=== PATIENT | male | born 1960 | race Caucasian/White ===

== ENCOUNTER 2022-08-05 15:12 | Emergency (ER) | payer MEDICAID, SELFPAY ==
[2022-08-05 15:13] VITALS: BP 128/77; PULSE 90; RESP 18; TEMP 36.6; O2SAT 99
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
[2022-08-05] MEDS: Paroxetine 20 MG Tablet 30 MG PO (16:32)
--- NOTE | 2022-08-05 16:34 | ED.RN ---
per dr. cota pt does NOT need a sitter at this time.
--- NOTE | 2022-08-05 16:38 | ED.RN ---
called meal tray for pt
[2022-08-05 16:41] VITALS: BP 119/76; PULSE 83; RESP 14; O2SAT 97
[2022-08-05 17:05] VITALS: BP 127/83; PULSE 79; RESP 16; O2SAT 98
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
--- NOTE | 2022-08-05 20:33 | CM.ED ---
Social Work SW spoke to [facility] worker, Seema Mancuso, who reports they can cover transportation costs for patient to return home when discharged. She reports they have a contract with [facility] and they can bill them if they are willing to transport him back to [place]. Transportation scheduled with [facility] with an ETA of 6:30. Bharti Haynes BRANCH LIBRARY CLERK, ADJUNCT SPANISH INSTRUCTOR
== END 2022-08-05 17:19 | disposition home or self-care (01) ==
PROVIDERS: Emergency Provider Emergency Medicine; PCP Nurse Practitioner Primary Care; Visit Provider Emergency Medicine
DX: R45.851 Suicidal ideations (principal); F22 Delusional disorders; F41.9 Anxiety disorder, unspecified; F32.A Depression, unspecified; Z79.899 Other long term (current) drug therapy; Z91.148 Patient's other noncompliance with medication regimen for other reason
CPT/HCPCS: 99283

== ENCOUNTER 2024-02-01 15:37 | Inpatient (IN) | payer MEDICARE, MEDICAID, SELFPAY ==
[2024-02-01 15:38] VITALS: BP 92/65; PULSE 64; RESP 14; TEMP 36.6; O2SAT 100; BMI 18.9
--- NOTE | 2024-02-01 15:48 | EKG12_ITS ---
Test Reason : SYNC Blood Pressure : */* mmHG Vent. Rate : 67 BPM Atrial Rate : 67 BPM P-R Int : 142 ms QRS Dur : 84 ms QT Int : 418 ms P-R-T Axes : 76 86 83 degrees QTcB Int : 441 ms Normal sinus rhythm Nonspecific T wave abnormality Abnormal ECG Confirmed by Landen Adorno ([id number]), editorial intern ARABELLA MITCHELL ([id number]) on 02/02/2024 1:41:32 PM Referred By: Rambo Mora Confirmed By: Landen Adorno
--- NOTE | 2024-02-01 15:49 | RAD_ITS ---
INDICATION: chest pain EXAMINATION/TECHNIQUE: X-RAY - XR Chest 2 Views COMPARISON: FINDINGS: LINES/DEVICES: None. LUNGS: Hyperaeration. No consolidation, edema or effusion. No pneumothorax. MEDIASTINUM AND CARDIOVASCULAR STRUCTURES: Cardiac silhouette not enlarged. Central airways and mediastinal contour are unremarkable. BONES AND SOFT TISSUES: Unremarkable. RAD/Chest PA and Lateral IMPRESSION: Hyperaeration. Electronically Signed: Levi Jenkins DO at 17:36 EST ,
--- NOTE | 2024-02-01 15:49 | CT_ITS ---
STUDY: CT CERVICAL SPINE WITHOUT CONTRAST REASON FOR EXAM: Male, 63 years old. head injury RADIATION DOSAGE (If Supplied By Facility): CTDIvol = ( 19.05 ) mGy, DLP = ( 424.71 ) mGycm TECHNIQUE: High resolution transaxial imaging was performed without contrast material. Sagittal and coronal images were reconstructed. Individualized dose optimization techniques were used for this CT. COMPARISON: None FINDINGS: Normal craniovertebral junction. Normal anterior atlantoaxial articulation. Normal odontoid process. Normal cervical lordosis. Normal vertebral bodies and posterior osseous elements. C2-3: Normal endplates. Normal disc height and morphology. Normal central canal and intervertebral neuroforamina. C3-4: Normal endplates. Normal disc height and morphology. Normal central canal. Facet hypertrophy and uncovertebral spurring and a intervertebral neuroforamina, left more than right. C4-5: Degenerative spurring at the endplates. Normal disc height and morphology. Normal central canal. Facet hypertrophy and uncovertebral spurring and a intervertebral neuroforamina. C5-6: Degenerative spurring at the endplates. Normal disc height and morphology. Normal central canal and intervertebral neuroforamina. C6-7: Degenerative spurring at the endplates. Normal disc height and morphology. Normal central canal and intervertebral neuroforamina. C7-T1: Degenerative spurring at the endplates. Narrowed disc height. Normal central canal. Facet hypertrophy and uncovertebral spurring and a intervertebral neuroforamina. Normal visualized soft tissue structures. CT/Spine Cervical without Contras IMPRESSION: Degenerative changes of the cervical spine. Electronically Signed: Levi Jenkins DO at 16:50 EST Reading Location ID and State: [facility] / [place] Tel [phone], Service support ,
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
--- NOTE | 2024-02-01 15:54 | EX.ED.DYSGE1 ---
HPI <PAXTON Sheridan - Last Filed: 02/01/24 18:33> History of Present Illness Chief Complaint: Syncope Narrative Narrative: Patient presenting today due to 2 syncopal episodes that occurred today. 1 occurred this morning and 1 occurred shortly prior to arrival. He reports that before both episodes he had been laying down for a long period of time in bed, he then got up and passed out with ambulating. He denies any symptoms prior to passing out such as lightheadedness, chest pain, or shortness of breath. The second episode and syncope resulted in him hitting his head and sustaining a laceration above his right eyebrow. His tetanus is not up-to-date. He denies any cardiac history or history of blood clots/recent surgery/travel/immobilization. He does admit that he has not been eating or drinking as much as he normally does. He has a PMH of depression, anxiety, GERD, and anemia. He denies recent illness, fevers, chills, abdominal pain, nausea, vomiting. PFSH <PAXTON Sheridan - Last Filed: 02/01/24 18:33> PFSH Medical History Acute insomnia GERD (gastroesophageal reflux disease) Anxiety Depression Home Medications ?Medication ?Instructions ?Recorded ?Last Taken ?Type clorazepate dipotassium 3.75 mg 3.75 mg PO BID PRN anxiety 5 days 08/05/22 Unknown Rx tablet #10 tabs paroxetine HCl 30 mg tablet (Paxil) 30 mg PO DAILY pt states does not 08/05/22 Unknown Rx take #14 tabs acetaminophen 500 mg tablet 500 mg PO Q4H PRN pain 02/01/24 Unknown History (Tylenol Extra Strength) aripiprazole 5 mg tablet 5 mg PO DAILY 02/01/24 Unknown History bupropion HCl 150 mg 24 hr tablet, 150 mg PO DAILY 02/01/24 Unknown History extended release ibuprofen 200 mg tablet (Advil) 400 mg PO Q6H PRN pain 02/01/24 Unknown History meloxicam 7.5 mg tablet 7.5 mg PO DAILY PRN pain 02/01/24 Unknown History pantoprazole 40 mg tablet,delayed 40 mg PO DAILY 02/01/24 Unknown History release trazodone 100 mg tablet 100 mg PO QHS 02/01/24 Unknown History Allergy/AdvReac Type Severity Reaction Status Date / Time No Known Allergies Allergy Verified 02/01/24 15:41 Social History housing: apartment current occupational status: unemployed Smoking Status: Unknown if ever smoked ROS <PAXTON Sheridan - Last Filed: 02/01/24 18:33> ROS ED Constitutional Constitutional ED: Denies chills or fever(s) Cardiovascular Cardiovascular: Denies chest pain Respiratory/Chest Respiratory/Chest: Denies cough or dyspnea Gastrointestinal Gastrointestinal: Denies abdominal pain, nausea or vomiting Musculoskeletal Musculoskeletal: Denies arthralgias, myalgias or neck pain Integumentary Reports laceration Neurologic Neurologic: Denies dizziness or weakness EXAM <PAXTON Sheridan - Last Filed: 02/01/24 18:33> Physical Exam Const Vital Signs: 02/01/24 15:38 02/01/24 16:08 02/01/24 16:09 Temperature 98 F Temperature Source Oral Pulse Rate 64 Pulse Rate [Lying] Pulse Rate [Sitting (for 1 minute prior to obtaining)] Pulse Rate [Standing (for 1 minute prior to obtaining)] Respiratory Rate 14 Respiratory Effort Normal Normal Respiratory Depth Normal Respiratory Pattern Normal Normal Blood Pressure 92/65 Blood Pressure [Lying] Blood Pressure [Sitting (for 1 minute prior to obtaining)] Blood Pressure [Standing (for 1 minute prior to obtaining)] Blood Pressure Mean 74 Blood Pressure Mean [Lying] Blood Pressure Mean [Sitting (for 1 minute prior to obtaining)] Blood Pressure Mean [Standing (for 1 minute prior to obtaining)] Pulse Ox 100 Oxygen Delivery Method Room Air 02/01/24 17:32 02/01/24 17:37 02/01/24 18:11 Temperature 98.5 F Temperature Source Pulse Rate 69 66 Pulse Rate [Lying] 67 Pulse Rate [Sitting (for 1 minute prior to obtaining)] 70 Pulse Rate [Standing (for 1 minute prior to obtaining)] 79 Respiratory Rate 15 16 Respiratory Effort Respiratory Depth Respiratory Pattern Blood Pressure 92/62 110/70 Blood Pressure [Lying] 101/61 Blood Pressure [Sitting (for 1 minute prior to obtaining)] 109/65 Blood Pressure [Standing (for 1 minute prior to obtaining)] 92/62 Blood Pressure Mean 72 83 Blood Pressure Mean [Lying] 74 Blood Pressure Mean [Sitting (for 1 minute prior to obtaining)] 79 Blood Pressure Mean [Standing (for 1 minute prior to obtaining)] 72 Pulse Ox 99 100 Oxygen Delivery Method Room Air Positive well nourished, well developed and no apparent distress General Appearance ED: well developed HEENT Reports normocephalic, head/scalp atraumatic and dry mucous membranes HEENT Narrative: 3.5 cm full-thickness linear laceration above the right eyebrow. No inferior or superior orbital tenderness or step-offs on the right. Mouth ED: Yes dry mucous membranes Mouth: dry mucous membranes Eyes PERRL and EOMs intact bilaterally Neck full ROM and supple Chest Wall inspection of chest normal Resp normal respiratory effort and clear to auscultation bilaterally Cardio regular rate and regular rhythm GI soft to palpation, non-tender, non-distended and no masses Back/Spine normal ROM and normal to inspection Extremity normal to inspection and full ROM Neuro oriented x3, CN's II-XII intact bilaterally, moves all extremities, no focal motor deficits and no sensory deficits noted Sensorium / Orientation: awake and alert Psych mental status grossly normal and thought process normal Skin Skin Narrative: Laceration above right eyebrow otherwise no rashes or lesions noted. <Dr. Rambo Mora, DO - Last Filed: 02/01/24 23:41> Physical Exam Const Vital Signs: 02/01/24 15:38 02/01/24 16:08 02/01/24 16:09 Temperature 98 F Temperature Source Oral Pulse Rate 64 Pulse Rate [Lying] Pulse Rate [Sitting (for 1 minute prior to obtaining)] Pulse Rate [Standing (for 1 minute prior to obtaining)] Respiratory Rate 14 Respiratory Effort Normal Normal Respiratory Depth Normal Respiratory Pattern Normal Normal Blood Pressure 92/65 Blood Pressure [Lying] Blood Pressure [Sitting (for 1 minute prior to obtaining)] Blood Pressure [Standing (for 1 minute prior to obtaining)] Blood Pressure Mean 74 Blood Pressure Mean [Lying] Blood Pressure Mean [Sitting (for 1 minute prior to obtaining)] Blood Pressure Mean [Standing (for 1 minute prior to obtaining)] Pulse Ox 100 Oxygen Delivery Method Room Air 02/01/24 17:32 02/01/24 17:37 02/01/24 18:11 Temperature 98.5 F Temperature Source Pulse Rate 69 66 Pulse Rate [Lying] 67 Pulse Rate [Sitting (for 1 minute prior to obtaining)] 70 Pulse Rate [Standing (for 1 minute prior to obtaining)] 79 Respiratory Rate 15 16 Respiratory Effort Respiratory Depth Respiratory Pattern Blood Pressure 92/62 110/70 Blood Pressure [Lying] 101/61 Blood Pressure [Sitting (for 1 minute prior to obtaining)] 109/65 Blood Pressure [Standing (for 1 minute prior to obtaining)] 92/62 Blood Pressure Mean 72 83 Blood Pressure Mean [Lying] 74 Blood Pressure Mean [Sitting (for 1 minute prior to obtaining)] 79 Blood Pressure Mean [Standing (for 1 minute prior to obtaining)] 72 Pulse Ox 99 100 Oxygen Delivery Method Room Air [facility] <PAXTON Sheridan - Last Filed: 02/01/24 18:33> [facility] Narrative Medical decision making narrative: Patient presents today due to 2 syncopal episodes that occurred today. He did hit his head during the second episode and has a laceration above his right eyebrow that will require repair. His tetanus will be updated. He is hypotensive here at 92/65 and does admit that he has not been eating or drinking much recently but does not give a good reason as to why he has not been. He has a history of depression but has not been feeling more depressed than usual. He does appear dry and will be given IV fluids. Cardiac workup will be obtained. Head and neck CTs will be obtained to rule out intracranial bleed and cervical fracture. His head and neck CTs are negative for acute findings. Chest x-ray negative for cardiopulmonary abnormality. Laceration was repaired. Given his DAMARIS and 2 episodes of syncope I think he would benefit from admission to the hospital. He was given additional IV fluids. I will speak with the hospitalist and he will be admitted in stable condition. Lab Data Attestation: I reviewed the patient's lab results. Lab results narrative: BUN 22, creatinine 1.71, troponin 6 Labs: Laboratory Results - last 24 hr 02/01/24 02/01/24 15:39 17:45 WBC 5.9 RBC 4.36 L Hgb 14.7 Hct 43.0 MCV 98.6 H MCH 33.7 H MCHC 34.2 RDW Std Deviation 44.7 H RDW Coeff of Lola 12.2 Plt Count 209 MPV 11.7 Immature Gran % (Auto) 0.500 Neut % (Auto) 81.8 H Lymph % (Auto) 9.4 L [place] % (Auto) 6.9 Eos % (Auto) 0.7 Baso % (Auto) 0.7 Absolute Neuts (auto) 4.9 Absolute Lymphs (auto) 0.56 L Nucleated RBC % 0 Sodium 137 Potassium 4.0 Chloride 99 Carbon Dioxide 31.0 Anion Gap 7 BUN 22 H Creatinine 1.71 H Estim Creat Clear Calc 36.47 Est GFR (MDRD) Af Amer 52 L Est GFR (MDRD) Non-Af 43 L BUN/Creatinine Ratio 12.9 Glucose 165 H Calcium 9.3 Troponin I High Sens 6 15 Radiography X-Ray: Read by ED Physician Diagnostic Testing: Clinical Impression(s) from Imaging Studies Brain CT 02/01/24 15:49 IMPRESSION: No acute intracranial pathology of the brain. Electronically Signed: Levi Jenkins DO at 16:39 EST , Cervical Spine CT 02/01/24 15:49 IMPRESSION: Degenerative changes of the cervical spine. Electronically Signed: Levi Jenkins DO at 16:50 EST , Chest X-Ray 02/01/24 15:49 IMPRESSION: Hyperaeration. Electronically Signed: Levi Jenkins DO at 17:36 EST , EKG Initial EKG: Comments: 67 bpm, normal sinus rhythm, no ST elevation, T wave inversions in aVL and V1, interpreted by attending ED physician <Dr. Rambo Mora, DO - Last Filed: 02/01/24 23:41> [facility] Narrative Medical decision making narrative: Patient presents today due to 2 syncopal episodes that occurred today. He did hit his head during the second episode and has a laceration above his right eyebrow that will require repair. His tetanus will be updated. He is hypotensive here at 92/65 and does admit that he has not been eating or drinking much recently but does not give a good reason as to why he has not been. He has a history of depression but has not been feeling more depressed than usual. He does appear dry and will be given IV fluids. Cardiac workup will be obtained. Head and neck CTs will be obtained to rule out intracranial bleed and cervical fracture. His head and neck CTs are negative for acute findings. Chest x-ray negative for cardiopulmonary abnormality. Laceration was repaired. Given his DAMARIS and 2 episodes of syncope I think he would benefit from admission to the hospital. He was given additional IV fluids. I will speak with the hospitalist and he will be admitted in stable condition. Attending note: I have personally performed a face to face assessment of the patient and have reviewed the FREDY note. I personally made/approved the management plan and take responsibility for the patient management. I performed a substantive portion of the visit including all aspects of the following. My wade findings include: Syncope x 2 while walking with no prodromal symptoms. Head injury laceration to the forehead. No recent vomiting diarrhea however states decreased p.o. intake. Tetanus unknown. Exam 3.5 cm laceration above the right eyebrow no active bleeding. No focal deficit on exam. Heart is regular nose are clear. EKG sinus rhythm with no acute findings. Trauma scans head and neck obtained negative. Labs are stable except for creatinine 1.71 no old for comparison. Presumed new as patient said decreased p.o. intake.. Orthostatics negative. He was given IV fluids. With syncope x 2 with no prodrome symptoms discussed with hospitalist service for admission. Two-view chest x-ray interpreted myself and read by radiology shows no acute process. Lab Data Labs: Laboratory Results - last 24 hr 02/01/24 02/01/24 15:39 17:45 WBC 5.9 RBC 4.36 L Hgb 14.7 Hct 43.0 MCV 98.6 H MCH 33.7 H MCHC 34.2 RDW Std Deviation 44.7 H RDW Coeff of Lola 12.2 Plt Count 209 MPV 11.7 Immature Gran % (Auto) 0.500 Neut % (Auto) 81.8 H Lymph % (Auto) 9.4 L [place] % (Auto) 6.9 Eos % (Auto) 0.7 Baso % (Auto) 0.7 Absolute Neuts (auto) 4.9 Absolute Lymphs (auto) 0.56 L Nucleated RBC % 0 Sodium 137 Potassium 4.0 Chloride 99 Carbon Dioxide 31.0 Anion Gap 7 BUN 22 H Creatinine 1.71 H Estim Creat Clear Calc 36.47 Est GFR (MDRD) Af Amer 52 L Est GFR (MDRD) Non-Af 43 L BUN/Creatinine Ratio 12.9 Glucose 165 H Calcium 9.3 Troponin I High Sens 6 15 Radiography Diagnostic Testing: Clinical Impression(s) from Imaging Studies Brain CT 02/01/24 15:49 IMPRESSION: No acute intracranial pathology of the brain. Electronically Signed: Levi Jenkins DO at 16:39 EST , Cervical Spine CT 02/01/24 15:49 IMPRESSION: Degenerative changes of the cervical spine. Electronically Signed: Levi Jenkins DO at 16:50 EST , Chest X-Ray 02/01/24 15:49 IMPRESSION: Hyperaeration. Electronically Signed: Levi Jenkins DO at 17:36 EST , Procedures <PAXTON Sheridan - Last Filed: 02/01/24 18:33> Lacerations Laceration: Length: 1.38 in Depth: Sub Q Shape: Linear Prep: Chlorhexadine Laceration repair: Irrigated, Lidocaine with epi, Skin sutures and Wound explored Suture Information: Ethilon, Simple and 5-0 Discharge Plan Dx/Rx/DC Orders Clinical Impression: Syncope, DAMARIS (acute kidney injury), Head injury, Facial laceration, Hypotension Disposition Disposition: Acute Care Hospital [facility] Discharge Date/Time: 02/01/24 19:04
[2024-02-01] MEDS: 0.9% Normal Saline (1000mL) 1,000 ML 999 ML IV ×2 (16:05→17:51)
[2024-02-01 16:13] LABS: Absolute Lymphocyte Count 0.56 X10^3/uL (0.83-4.51); Absolute Neutrophil Count 4.9 X10^3/uL (2.0-7.7); Basophil# 0.04 X10^3/uL; Basophil% 0.7 % (0-1); Eosinophil# 0.04 X10^3/uL; Eosinophils% 0.7 % (0-5); Hemoglobin 14.7 g/dL (13.0-16.5); Lymphocyte # 0.56 X10^3/ul (0.83-4.51); Lymphocyte % 9.4 % (19-41); Mean Corp Hgb Conc 34.2 g/dL (32-36); Mean Corpuscular Hgb 33.7 pg (27.0-32.0); Mean Corpuscular Volume 98.6 fL (80-94); Mean Platelet Vol. 11.7 fl (6.2-12.0); Monocyte# 0.41 X10^3/uL; Monocyte% 6.9 % (0-10); NRBC Flagged by Analyzer 0 % (0-5); Neutrophil # 4.86 X10^3/uL (2.7-7.7); Neutrophil % 81.8 % (47-70); POSITIVE DIFFERENTIAL YES; Platelet Count 209 K/mm3 (150-450); RBC Distribution Width CV 12.2 % (11.6-14.6); RBC Distribution Width SD 44.7 fl (35.1-43.9); Red Blood Count 4.36 M/mm3 (4.6-6.2); White Blood Count 5.9 K/mm3 (4.4-11.0)
[2024-02-01 16:42] LABS: Anion Gap 7 (5-15); BUN 22 mg/dL (7-18); BUN/Creat Ratio 12.9 RATIO (10-20); Calcium,Total 9.3 mg/dL (8.5-10.1); Chloride 99 mmol/L (98-107); Creatinine, Serum 1.71 mg/dL (0.70-1.30); EST Glomerular Filtration Rate 43 mL/min (>60); Est Glom Filt Rate - Afr Amer 52 mL/min (>60); Estimated Creatinine Clearance 36.47 ml/min; Glucose 165 mg/dL (74-106); Sodium Level 137 mmol/L (136-145); Troponin-I HS (w/2H Reflex) 6 pg/mL (3.0-78.0)
[2024-02-01] MEDS: Diphth,Pertuss(Acell),Tet Vac 0.5 ML Vial IM (16:47)
[2024-02-01 17:32] VITALS: BP 101/61; BP 109/65; BP 92/62; PULSE 67; PULSE 70; PULSE 79
[2024-02-01 17:37] VITALS: BP 92/62; PULSE 69; RESP 15; O2SAT 99
[2024-02-01] MEDS: Lidocaine 1% /Epi 1:100 (20ml) 20 ML Vial 10 ML INFILT (17:43)
--- NOTE | 2024-02-01 18:01 | HP.PCM.HOS_ITS ---
HPI - General General Date of Admission: 02/01/24 Date of Service: 02/01/24 Chief Complaint: Syncope x2 HPI Narrative JAYCOBDesirae CRYSTAL, is a 63-year-old male history of depression, GERD, and insomnia who presented [facility] ED 02/01/2024 with 2 syncopal episodes. For syncopal episode occurred in the morning and the second was shortly prior to arrival. Before both episodes he had been laying down in bed for a long period and when he stood up he passed out when he started to ambulate. Second episode he did hit his head and sustained a laceration above his right eyebrow. He was found to have a blood pressure of 92/65 on arrival and notes that he has been having poor p.o. intake recently though he is unsure why. In the ED lab workup did reveal a creatinine of 1.71 but no baseline available. Given his multiple syncopal episodes hospitalist contacted for admission. Patient evaluated at bedside and he reports his for syncopal episode he had been laying down and he stood up and started walking and he did have some lightheaded feeling and then passed out, he is not sure how long he was out for but he thinks it was a couple of seconds. The second time he had been standing down for a while and he got up to go to the door to let somebody in and he does not remember what happened after that and did not note any prodromal symptoms at that time and that episode he did hit his head though he is not sure on what and had a laceration that was repaired in the ED. He thinks he was out longer for the second episode. Nothing like this is ever happened to him before. Does report that he has not been eating and drinking well but does not have a specific reason. He does feel like it is been worse since he moved to [facility] last month because of the portion sizes. Had 1 episode of diarrhea today after he had a soft drink for lunch which he usually does not do but has not had any further episodes and did not have any prior. No abdominal pain, no nausea vomiting. ROS completely negative otherwise. Patient denies any recent medication changes and he did take his regular home medications today before coming in. Denies any alcohol, tobacco, substance use [facility] Medical History Acute insomnia GERD (gastroesophageal reflux disease) Anxiety Depression Home Medications ?Medication ?Instructions ?Recorded ?Last Taken ?Type clorazepate dipotassium 3.75 mg 3.75 mg PO BID PRN anxiety 5 days 08/05/22 Unknown Rx tablet #10 tabs paroxetine HCl 30 mg tablet (Paxil) 30 mg PO DAILY #14 tabs 08/05/22 Unknown Rx acetaminophen 500 mg tablet 500 mg PO Q4H PRN pain 02/01/24 Unknown History (Tylenol Extra Strength) aripiprazole 5 mg tablet 5 mg PO DAILY 02/01/24 Unknown History bupropion HCl 150 mg 24 hr tablet, 150 mg PO DAILY 02/01/24 Unknown History extended release donepezil 5 mg tablet 5 mg PO DAILY 02/01/24 Unknown History ibuprofen 200 mg tablet (Advil) 400 mg PO Q6H PRN pain 02/01/24 Unknown History meloxicam 7.5 mg tablet 7.5 mg PO DAILY PRN pain 02/01/24 Unknown History pantoprazole 40 mg tablet,delayed 40 mg PO DAILY 02/01/24 Unknown History release trazodone 100 mg tablet 100 mg PO QHS 02/01/24 Unknown History Allergy/AdvReac Type Severity Reaction Status Date / Time No Known Allergies Allergy Verified 02/01/24 15:41 Social History housing: apartment current occupational status: unemployed Smoking Status: Unknown if ever smoked ROS ROS Narrative General: Denies fever/chills HENT: Denies headache, denies stuffy nose, denies sore throat EYES: Denies changes in vision Resp: Denies cough, denies shortness of breath Cardiac: Denies chest pain GI: Denies abdominal pain, 1 episode of diarrhea after having something he does not usually have at lunchtime, denies nausea/vomiting : Denies changes in urination Extremity: Denies swelling MSK: Denies weakness Neuro: Denies any numbness/tingling Heme: Denies any bleeding or bruising Skin: Denies rashes, does have repaired laceration on right forehead Psychiatric: No complaints voiced Vital Signs Vital Signs Vital Signs: 02/01/24 15:38 02/01/24 16:08 02/01/24 16:09 Temperature 98 F Temperature Source Oral Pulse Rate 64 Pulse Rate [Lying] Pulse Rate [Sitting (for 1 minute prior to obtaining)] Pulse Rate [Standing (for 1 minute prior to obtaining)] Respiratory Rate 14 Respiratory Effort Normal Normal Respiratory Depth Normal Respiratory Pattern Normal Normal Blood Pressure 92/65 Blood Pressure [Lying] Blood Pressure [Sitting (for 1 minute prior to obtaining)] Blood Pressure [Standing (for 1 minute prior to obtaining)] Blood Pressure Mean 74 Blood Pressure Mean [Lying] Blood Pressure Mean [Sitting (for 1 minute prior to obtaining)] Blood Pressure Mean [Standing (for 1 minute prior to obtaining)] Pulse Ox 100 Oxygen Delivery Method Room Air 02/01/24 17:32 02/01/24 17:37 Temperature Temperature Source Pulse Rate 69 Pulse Rate [Lying] 67 Pulse Rate [Sitting (for 1 minute prior to obtaining)] 70 Pulse Rate [Standing (for 1 minute prior to obtaining)] 79 Respiratory Rate 15 Respiratory Effort Respiratory Depth Respiratory Pattern Blood Pressure 92/62 Blood Pressure [Lying] 101/61 Blood Pressure [Sitting (for 1 minute prior to obtaining)] 109/65 Blood Pressure [Standing (for 1 minute prior to obtaining)] 92/62 Blood Pressure Mean 72 Blood Pressure Mean [Lying] 74 Blood Pressure Mean [Sitting (for 1 minute prior to obtaining)] 79 Blood Pressure Mean [Standing (for 1 minute prior to obtaining)] 72 Pulse Ox 99 Oxygen Delivery Method Room Air Weight Weight: 59.874 kg Body Mass Index (BMI) 18.9 Physical Exam Narrative General: Alert, oriented, no apparent distress HEENT: Atraumatic, normocephalic Eyes: Anicteric, normal conjunctiva, extraocular movements grossly intact Neck: Supple Respiratory: Clear to auscultation bilaterally, normal respiratory effort Cardiovascular: Regular rate and rhythm GI: Soft, nontender, nondistended Extremities: No edema Musculoskeletal: Moving all extremities Neuro: No overt focal neurological deficits Skin: Laceration over right eyebrow stitched Psych: Cooperative but fairly flat affect Results Lab / Micro Data 02/01/24 15:39 02/01/24 15:39 Labs: Laboratory Results - last 24 hr 02/01/24 15:39: WBC 5.9, RBC 4.36 L, Hgb 14.7, Hct 43.0, MCV 98.6 H, MCH 33.7 H, MCHC 34.2, RDW Std Deviation 44.7 H, RDW Coeff of Lola 12.2, Plt Count 209, MPV 11.7, Immature Gran % (Auto) 0.500, Neut % (Auto) 81.8 H, Lymph % (Auto) 9.4 L, [place] % (Auto) 6.9, Eos % (Auto) 0.7, Baso % (Auto) 0.7, Absolute Neuts (auto) 4.9, Absolute Lymphs (auto) 0.56 L, Nucleated RBC % 0, Sodium 137, Potassium 4.0, Chloride 99, Carbon Dioxide 31.0, Anion Gap 7, BUN 22 H, Creatinine 1.71 H, Estim Creat Clear Calc 36.47, Est GFR (MDRD) Af Amer 52 L, Est GFR (MDRD) Non-Af 43 L, BUN/Creatinine Ratio 12.9, Glucose 165 H, Calcium 9.3, Troponin I High Sens 6 Imaging Radiology Impression Brain CT 02/01/24 15:49 IMPRESSION: No acute intracranial pathology of the brain. Electronically Signed: Levi Jenkins DO at 16:39 EST Reading Location ID and State: [facility] / [place] Tel [phone], Service support , Cervical Spine CT 02/01/24 15:49 IMPRESSION: Degenerative changes of the cervical spine. Electronically Signed: Levi Jenkins DO at 16:50 EST , Chest X-Ray 02/01/24 15:49 IMPRESSION: Hyperaeration. Electronically Signed: Levi Jenkins DO at 17:36 EST , Assessment & Plan Assessment/Plan (1) Syncope: PLAN: Plan # Syncopal episodes x 2 -First episode happened after going from sitting to standing and he had prodrome with lightheadedness, denies prodrome for the second episode -admit to telemetry -EGK normal sinus rhythm and QTc 441 -CT head negative -Troponin normal at 6 -orthostatic vital signs were not technically positive in the ED but patient was hypotensive with blood pressure 92/62 -No signs or symptoms of infection and other than increased creatinine lab workup unremarkable so do not suspect sepsis or infectious cause -Fall precautions -will obtain echo -Continue IV fluids # DAMARIS versus CKD -Creatinine 1.71 however no other values available -Patient reports very poor p.o. intake and blood pressure also low, will hydrate with IV fluids -If not improving or worsening will likely need further workup -Hold NSAIDs #Depression/anxiety -Continue patient's home Abilify and Wellbutrin, awaiting final confirmation of med rec and will resume paroxetine if he is indeed taking this -Given patient's low blood pressure we will decrease trazodone dose and add holding parameter #GERD -Continue PPI #DVT ppx: Lovenox subcu Tasha Queen MD Charges/Coding Visit Charges Inpatient E&M: 27443 Init Hosp L2
[2024-02-01 18:03] LABS: Reflex Troponin-HS? (from REC) Y
[2024-02-01 18:11] VITALS: BP 110/70; PULSE 66; RESP 16; TEMP 36.9; O2SAT 100
[2024-02-01 18:41] LABS: Troponin-I HS 15 pg/mL (3.0-78.0)
--- NOTE | 2024-02-01 20:02 | ECHOD_ITS ---
Reason For Study: SYNCOPE Procedure This was a 2D Doppler, Color Flow transthoracic echocardiogram. Exam performed portable in patient room. Left Ventricle Normal LV size. Apical false tendon noted. Left ventricular systolic function is normal. The left ventricular ejection fraction is 60 %. No regional wall motion abnormalities noted. Right Ventricle Normal RV size. Normal systolic function. Atria Normal left atrium. Mitral Valve Normal mitral valve. Tricuspid Valve Normal tricuspid valve. Aortic Valve Normal aortic valve. Pulmonic Valve Normal pulmonic valve. Great Vessels Normal aortic root. The pulmonary artery is normal size. Normal inferior vena cava. Pericardium/Pleural No pericardial effusion. MMode/2D Measurements & Calculations LVIDd: 3.4 cm IVSd: 1.0 cm LVOT diam: 2.1 cm LVIDs: 2.4 cm LVPWd: 1.1 cm LVOT area: 3.4 cm2 FS: 27.9 % LAV(MOD-sp4): 24.1 ml LVAd ap4: 16.9 cm2 SV(MOD-sp4): 16.0 ml LVLd ap4: 7.6 cm SI(MOD-sp4): 9.1 ml/m2 EDV(MOD-sp4): 32.1 ml EDV(sp4-el): 32.1 ml LVAs ap4: 11.1 cm2 LVLs ap4: 6.7 cm ESV(MOD-sp4): 16.2 ml ESV(sp4-el): 15.6 ml EF(MOD-sp4): 49.7 % EF(sp4-el): 51.2 % SV(sp4-el): 16.4 ml LA A4 area: 11.1 cm2 LA dimension(2D): 2.6 cm RA A4 area: 9.2 cm2 Time Measurements MV dec time: 0.22 sec Doppler Measurements & Calculations MV E max fidencio: 77.5 cm/sec Lat Peak E' Fidencio: 12.3 cm/sec Med Peak E' Fidencio: 10.2 cm/sec MV A max fidencio: 68.9 cm/sec E/E' lat: 6.3 E/E' med: 7.6 MV E/A: 1.1 MV V2 max: 88.3 cm/sec Ao V2 max: 83.9 cm/sec MV max P.1 mmHg MV dec slope: 347.2 cm/sec2 Ao max P.8 mmHg MV V2 mean: 52.8 cm/sec Ao V2 mean: 60.2 cm/sec MV mean P.3 mmHg Ao mean P.6 mmHg MV V2 VTI: 24.9 cm Ao V2 VTI: 17.1 cm AV (velocity ratio): 0.99 MVA(VTI): 2.3 cm2 CHUCK(I,D): 3.3 cm2 CHUCK(V,D): 3.1 cm2 LV V1 max: 77.0 cm/sec SV(LVOT): 57.4 ml PA V2 max: 88.2 cm/sec LV V1 max P.4 mmHg PA V2 mean: 62.8 cm/sec LV V1 mean P.2 mmHg LV V1 mean: 51.8 cm/sec LV V1 VTI: 17.0 cm TR max fidencio: 230.6 cm/sec TR max P.3 mmHg ECHO/Echo Complete Interpretation Summary Normal LV size. Left ventricular systolic function is normal. The left ventricular ejection fraction is 60 %. Structurally normal valves. Ordering Physician: Tasha Queen Referring Physician: Rambo Mora Performed By: Anna Martinez RCS
[2024-02-01] MEDS: 0.9% Normal Saline (1000mL) 1,000 ML 100 ML IV (20:16)
[2024-02-01 20:19] VITALS: BMI 18.9
[2024-02-01 21:00] VITALS: BP 110/67; PULSE 76; RESP 18; TEMP 36.9; O2SAT 100
[2024-02-01] MEDS: traZODone 50 MG Tablet PO (21:06)
[2024-02-01] MEDS: Acetaminophen 325 MG Tablet 650 MG PO (21:06)
[2024-02-01] MEDS: 0.9% Saline Lock 10 ML Syringe IV (21:06)
[2024-02-02 03:15] VITALS: BP 92/61; PULSE 68; RESP 16; TEMP 36.6; O2SAT 97
[2024-02-02 05:03] LABS: Absolute Lymphocyte Count 0.86 X10^3/uL (0.83-4.51); Absolute Neutrophil Count 4.2 X10^3/uL (2.0-7.7); Basophil# 0.02 X10^3/uL; Basophil% 0.3 % (0-1); Eosinophil# 0.12 X10^3/uL; Hematocrit 33.9 % (40-54); Hemoglobin 11.5 g/dL (13.0-16.5); Lymphocyte # 0.86 X10^3/ul (0.83-4.51); Lymphocyte % 14.5 % (19-41); Mean Corp Hgb Conc 33.9 g/dL (32-36); Mean Corpuscular Hgb 33.6 pg (27.0-32.0); Mean Corpuscular Volume 99.1 fL (80-94); Mean Platelet Vol. 11.8 fl (6.2-12.0); Monocyte# 0.75 X10^3/uL; Monocyte% 12.6 % (0-10); NRBC Flagged by Analyzer 0 % (0-5); Neutrophil # 4.17 X10^3/uL (2.7-7.7); Neutrophil % 70.3 % (47-70); Platelet Count 149 K/mm3 (150-450); RBC Distribution Width CV 12.4 % (11.6-14.6); RBC Distribution Width SD 45.1 fl (35.1-43.9); Red Blood Count 3.42 M/mm3 (4.6-6.2); White Blood Count 5.9 K/mm3 (4.4-11.0)
[2024-02-02 05:48] LABS: Anion Gap 4 (5-15); BUN 15 mg/dL (7-18); BUN/Creat Ratio 14.6 RATIO (10-20); Calcium,Total 8.2 mg/dL (8.5-10.1); Chloride 108 mmol/L (98-107); Creatinine, Serum 1.03 mg/dL (0.70-1.30); EST Glomerular Filtration Rate 77 mL/min (>60); Est Glom Filt Rate - Afr Amer 93 mL/min (>60); Estimated Creatinine Clearance 60.58 ml/min; Glucose 106 mg/dL (74-106); Potassium 3.6 mmol/L (3.5-5.1); Sodium Level 141 mmol/L (136-145)
--- NOTE | 2024-02-02 07:34 | PCM.PN.HOSP ---
Reason for Visit Reason for Visit: Diagnoses Syncope and collapse (02/01/24) Subjective Subjective Patient is a 63-year-old M who presented following a syncopal episode. Patient was found to have acute kidney injury on admission. Admitted to monitored floor for subsequent management Objective Data Objective Data Vital Signs: Vital Signs Temp Pulse Resp BP Pulse Ox O2 Del Method 97.9 F 68 16 92/61 97 Room Air 02/02/24 03:15 02/02/24 03:15 02/02/24 03:15 02/02/24 03:15 02/02/24 03:15 02/02/24 03:15 Oxygen Delivery Method Room Air Weight: 59.9 kg Body Mass Index (BMI) 18.9 Intake & Output: Intake and Output for Last 24 Hours 01/31/24 02/01/24 02/02/24 23:59 23:59 23:59 Intake Total 2200 / 2200 1000 / 1000 Output Total 775 / 775 Balance 2200 / 2200 225 / 225 Lab / Micro Data 02/02/24 04:40 02/02/24 04:40 Labs: Laboratory Results - last 24 hr 02/01/24 15:39: WBC 5.9, RBC 4.36 L, Hgb 14.7, Hct 43.0, MCV 98.6 H, MCH 33.7 H, MCHC 34.2, RDW Std Deviation 44.7 H, RDW Coeff of Lola 12.2, Plt Count 209, MPV 11.7, Immature Gran % (Auto) 0.500, Neut % (Auto) 81.8 H, Lymph % (Auto) 9.4 L, [place] % (Auto) 6.9, Eos % (Auto) 0.7, Baso % (Auto) 0.7, Absolute Neuts (auto) 4.9, Absolute Lymphs (auto) 0.56 L, Nucleated RBC % 0, Sodium 137, Potassium 4.0, Chloride 99, Carbon Dioxide 31.0, Anion Gap 7, BUN 22 H, Creatinine 1.71 H, Estim Creat Clear Calc 36.47, Est GFR (MDRD) Af Amer 52 L, Est GFR (MDRD) Non-Af 43 L, BUN/Creatinine Ratio 12.9, Glucose 165 H, Calcium 9.3, Troponin I High Sens 6 02/01/24 17:45: Troponin I High Sens 15 02/02/24 04:40: WBC 5.9, RBC 3.42 L, Hgb 11.5 L, Hct 33.9 L, MCV 99.1 H, MCH 33.6 H, MCHC 33.9, RDW Std Deviation 45.1 H, RDW Coeff of Lola 12.4, Plt Count 149 L, MPV 11.8, Immature Gran % (Auto) 0.300, Neut % (Auto) 70.3 H, Lymph % (Auto) 14.5 L, [place] % (Auto) 12.6 H, Eos % (Auto) 2.0, Baso % (Auto) 0.3, Absolute Neuts (auto) 4.2, Absolute Lymphs (auto) 0.86, Nucleated RBC % 0, Sodium 141, Potassium 3.6, Chloride 108 H, Carbon Dioxide 29.0, Anion Gap 4 L, BUN 15, Creatinine 1.03, Estim Creat Clear Calc 60.58, Est GFR (MDRD) Af Amer 93, Est GFR (MDRD) Non-Af 77, BUN/Creatinine Ratio 14.6, Glucose 106, Calcium 8.2 L, TSH 1.080 Radiography Diagnostic Testing: Radiology Impression Brain CT 02/01/24 15:49 IMPRESSION: No acute intracranial pathology of the brain. Electronically Signed: Levi Jenkins DO at 16:39 EST , Cervical Spine CT 02/01/24 15:49 IMPRESSION: Degenerative changes of the cervical spine. Electronically Signed: Levi Jenkins DO at 16:50 EST , Chest X-Ray 02/01/24 15:49 IMPRESSION: Hyperaeration. Electronically Signed: Levi Jenkins DO at 17:36 EST , Physical Exam Narrative GENERAL: cooperative HEENT: Laceration to the fourth normocephalic EYES; Anicteric, Normal Conjunctiva NECK; supple, normal thyroid, RESPIRATORY: Diminished to auscultation CARDIOVASCULAR: Regular S1 S2, GI: soft, normoactive bowel sounds, : No Renal angle tenderness; EXTREMITIES: No edema, no clubbing, MUSCULOSKELETAL: no muscle wasting NEURO: Awake; no lateralizing signs. SKIN: No Rash PSYCH; Flat affect Assessment & Plan Assessment/Plan (1) Syncope: PLAN: Plan Patient is a 63-year-old M who presented following a syncopal episode. Patient was found to have acute kidney injury on admission. Admitted to monitored floor for subsequent management 1. Syncopal episode ? Do suspect orthostatic hypotension from volume depletion. Patient has been admitted to a monitored bed for continuous telemetry. Was found to have relatively low blood pressure with acute kidney injury. Resuscitated with IV fluids 2D echo ordered in addition to serial cardiac enzymes. Telemetry did show a 3.6-second pause consult subsequently placed a consult to cardiology. Case was discussed with Dr. Adorno plan is to continue to monitor for the next 24 to 48 hours 2. Acute kidney injury ? Creatinine on admission was 1.7, Resuscitated with IV fluid creatinine as of 02/02/2024 1.03 3. Anemia ? Secondary to chronic disorder monitoring H&H and transfuse if patient becomes symptomatic or hemoglobin falls below 7 4. Depression with anxiety did continue with home meds 5. GERD ? On PPI 6. DVT prophylaxis ? On enoxaparin Time spent in the patient's overall evaluation,decision-making process, review of diagnostic data, adjustment of management, discussion with other providers, nursing nursing and ancillary staff involved in patient's care documentation, 50 minutes Charges/Coding Visit Charges Inpatient E&M: 62054 Init Hosp L3
[2024-02-02 07:47] VITALS: BP 112/72; PULSE 68; RESP 16; TEMP 36.9; O2SAT 98
--- NOTE | 2024-02-02 09:48 | PCM.CONS.C ---
Assessment & Plan Assessment/Plan (1) Syncope: QUALIFIERS: Syncope type: unspecified Qualified Code(s): R55 - Syncope and collapse PLAN: Patient had an episode of syncope earlier this week where he did not have any trauma. He then had an episode yesterday where he actually fell and hit his head creating a facial laceration. The patient was admitted to the hospital severely dehydrated. He was rehydrated and his creatinine is now normalized. He had an episode of sinus arrest/pause of 3.6 seconds that was asymptomatic this morning sitting on the side of the bed. The patient is status post remote closed head injury at a suicide attempt 25 years ago. He also is on multiple behavioral health modifying medications but none of which that I can find are associated with heart block. They are all associated with dizziness. From a cardiovascular standpoint I recommend we will continue to monitor him for another 24 to 48 hours to see if he has symptomatic pauses. If he does would have to consider permanent pacemaker implantation. (2) DAAMRIS (acute kidney injury): PLAN: Patient is acute kidney injury appears to be related to dehydration. He reports that he is anorexic has no appetite. Consideration may be given for further behavioral health evaluation given his past medical history. (3) Head injury: QUALIFIERS: Encounter type: subsequent encounter Qualified Code(s): S09.90XD - Unspecified injury of head, subsequent encounter PLAN: Patient status post remote closed head injury. I am not certain if this has any bearing on his cardiovascular rhythms. PLAN: Plan 1. Will continue to monitor on telemetry and increase activity as tolerated for the next 24 to 48 hours. 2. Would recommend considering behavioral health evaluation given the patient's past histories. HPI Consult Data Date of Consult: 02/02/24 HPI Narrative Reason for Consultation: 3.6-second sinus pause and history of syncope. HPI Narrative: JAYCOB CRYSTAL, is a 63 M who presents with a history of syncope where he was walking to his apartment door to let someone in and he woke up on the floor with a head injury. Patient presented to emergency department where he was felt to be profoundly dehydrated with elevated creatinines. Patient was resuscitated with volume and his creatinine has returned to normal at 1.03. The patient reports that earlier this week he had an episode where he got very lightheaded and fell to the floor but did not hurt himself. He also reports that he has been profoundly anorexic and has lost all of his appetite for over a year. The patient also has a history of remote suicide attempt 25 years ago. The telemetry showed a 3.6-second sinus pause with spontaneous recovery when the patient was seated on the side of the bed. He denies any symptoms with this sinus pause. Patient has no prior cardiac history he has no family history of coronary artery disease he denies any history of hypertension hyperlipidemia has never smoked and he is not diabetic. The patient's medications include multiple behavioral health modifying drugs including Aricept and multiple antidepressants. [facility] Medical History Acute insomnia GERD (gastroesophageal reflux disease) Anxiety Depression Home Medications ?Medication ?Instructions ?Recorded ?Last Taken ?Type paroxetine HCl 30 mg tablet (Paxil) 30 mg PO DAILY pt states does not 08/05/22 Unknown Rx take #14 tabs acetaminophen 500 mg tablet 500 mg PO Q4H PRN pain 02/01/24 Unknown History (Tylenol Extra Strength) aripiprazole 5 mg tablet 5 mg PO DAILY 02/01/24 Unknown History bupropion HCl 150 mg 24 hr tablet, 150 mg PO DAILY 02/01/24 Unknown History extended release ibuprofen 200 mg tablet (Advil) 400 mg PO Q6H PRN pain 02/01/24 Unknown History meloxicam 7.5 mg tablet 7.5 mg PO DAILY PRN pain 02/01/24 Unknown History pantoprazole 40 mg tablet,delayed 40 mg PO DAILY 02/01/24 Unknown History release trazodone 100 mg tablet 100 mg PO QHS 02/01/24 Unknown History donepezil 5 mg tablet 5 mg PO QHS dementia 02/02/24 Unknown History Allergy/AdvReac Type Severity Reaction Status Date / Time No Known Allergies Allergy Verified 02/01/24 15:41 Social History housing: apartment current occupational status: unemployed Smoking Status: Unknown if ever smoked ROS Constitutional Constitutional: Reports as per HPI Eyes Eyes: Reports systems reviewed and no addt'l complaints, except as documented ENT HEENT: Reports systems reviewed and no addt'l complaints, except as documented Cardiovascular Cardiovascular: Reports as per HPI Respiratory/Chest Respiratory/Chest: Reports systems reviewed and no addt'l complaints, except as documented Gastrointestinal Gastrointestinal: Reports systems reviewed and no addt'l complaints, except as documented Genitourinary Genitourinary: Reports systems reviewed and no addt'l complaints, except as documented Musculoskeletal Musculoskeletal: Reports systems reviewed and no addt'l complaints, except as documented Integumentary Integumentary: Reports systems reviewed and no addt'l complaints, except as documented Neurologic Neurologic: Reports as per HPI Psychiatric Psychiatric: Reports as per HPI Endocrine Endocrinology: Reports systems reviewed and no addt'l complaints, except as documented Hematologic/Lymphatic Hematologic/Lymphatic: Reports systems reviewed and no addt'l complaints, except as documented Allergic/Immunologic Allergic/Immunologic: Reports systems reviewed and no addt'l complaints, except as documented Physical Exam Narrative Patient is cachectic appearing. Const alert and oriented x3 HEENT normocephalic HEENT Narrative: Abrasion of his right orbital and supraorbital areas. Eyes EOMs intact bilaterally Neck no JVD Carotids: Negative for bruit Chest Chest Narrative: Thin and cachectic Resp normal respiratory effort Auscultation: crackles bilateral base Cardio Rate: regular rate Rhythm: regular rhythm Heart Sounds: S1 normal and S2 normal; Negative for click, gallop, murmur or rub GI soft to palpation Extremity no pedal edema Skin Skin Narrative: Abrasion to the right orbital area. Psych mental status grossly normal Risk Stratification Risk Stratification Applicable: No Charges/Coding Visit Charges Inpatient E&M: 34800 Init Hosp L2 Objective Data Vital Signs: Vital Signs Temp Pulse Resp BP Pulse Ox O2 Del Method 98.4 F 68 16 112/72 98 Room Air 02/02/24 07:47 02/02/24 07:47 02/02/24 07:47 02/02/24 07:47 02/02/24 07:47 02/02/24 07:47 Oxygen Delivery Method Room Air Weight: 132 lb 0.91 oz Body Mass Index (BMI) 18.9 Intake & Output: Intake and Output for Last 24 Hours 01/31/24 02/01/24 02/02/24 23:59 23:59 23:59 Intake Total 2200 / 2200 1000 / 1000 Output Total 775 / 775 Balance 2200 / 2200 225 / 225 Lab / Micro Data Attestation: I reviewed the patient's lab results. 02/02/24 04:40 02/02/24 04:40 Labs: Laboratory Results - last 24 hr 02/01/24 15:39: WBC 5.9, RBC 4.36 L, Hgb 14.7, Hct 43.0, MCV 98.6 H, MCH 33.7 H, MCHC 34.2, RDW Std Deviation 44.7 H, RDW Coeff of Lola 12.2, Plt Count 209, MPV 11.7, Immature Gran % (Auto) 0.500, Neut % (Auto) 81.8 H, Lymph % (Auto) 9.4 L, [place] % (Auto) 6.9, Eos % (Auto) 0.7, Baso % (Auto) 0.7, Absolute Neuts (auto) 4.9, Absolute Lymphs (auto) 0.56 L, Nucleated RBC % 0, Sodium 137, Potassium 4.0, Chloride 99, Carbon Dioxide 31.0, Anion Gap 7, BUN 22 H, Creatinine 1.71 H, Estim Creat Clear Calc 36.47, Est GFR (MDRD) Af Amer 52 L, Est GFR (MDRD) Non-Af 43 L, BUN/Creatinine Ratio 12.9, Glucose 165 H, Calcium 9.3, Troponin I High Sens 6 02/01/24 17:45: Troponin I High Sens 15 02/02/24 04:40: WBC 5.9, RBC 3.42 L, Hgb 11.5 L, Hct 33.9 L, MCV 99.1 H, MCH 33.6 H, MCHC 33.9, RDW Std Deviation 45.1 H, RDW Coeff of Lola 12.4, Plt Count 149 L, MPV 11.8, Immature Gran % (Auto) 0.300, Neut % (Auto) 70.3 H, Lymph % (Auto) 14.5 L, [place] % (Auto) 12.6 H, Eos % (Auto) 2.0, Baso % (Auto) 0.3, Absolute Neuts (auto) 4.2, Absolute Lymphs (auto) 0.86, Nucleated RBC % 0, Sodium 141, Potassium 3.6, Chloride 108 H, Carbon Dioxide 29.0, Anion Gap 4 L, BUN 15, Creatinine 1.03, Estim Creat Clear Calc 60.58, Est GFR (MDRD) Af Amer 93, Est GFR (MDRD) Non-Af 77, BUN/Creatinine Ratio 14.6, Glucose 106, Calcium 8.2 L, TSH 1.080 Rhythm Strip Rhythm Strip: Sinus Rhythm Rate: 65 Ectopy: - (One 3.6-second pause noted that was asymptomatic.) Cardiology Labs/Tests 02/01/24 15:39: WBC 5.9, RBC 4.36 L, Hgb 14.7, Hct 43.0, MCV 98.6 H, MCH 33.7 H, MCHC 34.2, Plt Count 209, MPV 11.7, Immature Gran % (Auto) 0.500, Neut % (Auto) 81.8 H, Lymph % (Auto) 9.4 L, [place] % (Auto) 6.9, Eos % (Auto) 0.7, Baso % (Auto) 0.7, Absolute Neuts (auto) 4.9, Nucleated RBC % 0, Sodium 137, Potassium 4.0, Chloride 99, Carbon Dioxide 31.0, Anion Gap 7, BUN 22 H, Creatinine 1.71 H, Est GFR (MDRD) Af Amer 52 L, Est GFR (MDRD) Non-Af 43 L, BUN/Creatinine Ratio 12.9, Glucose 165 H, Calcium 9.3 02/02/24 04:40: WBC 5.9, RBC 3.42 L, Hgb 11.5 L, Hct 33.9 L, MCV 99.1 H, MCH 33.6 H, MCHC 33.9, Plt Count 149 L, MPV 11.8, Immature Gran % (Auto) 0.300, Neut % (Auto) 70.3 H, Lymph % (Auto) 14.5 L, [place] % (Auto) 12.6 H, Eos % (Auto) 2.0, Baso % (Auto) 0.3, Absolute Neuts (auto) 4.2, Nucleated RBC % 0, Sodium 141, Potassium 3.6, Chloride 108 H, Carbon Dioxide 29.0, Anion Gap 4 L, BUN 15, Creatinine 1.03, Est GFR (MDRD) Af Amer 93, Est GFR (MDRD) Non-Af 77, BUN/Creatinine Ratio 14.6, Glucose 106, Calcium 8.2 L Rhythm: EKG: ECHO: Stress Test: Cardiac Cath: PCI: CT Surgery: Holter monitor: EPS: PPM: CXR: Chest CT Scan: Radiography Diagnostic Testing: Radiology Impression Brain CT 02/01/24 15:49 IMPRESSION: No acute intracranial pathology of the brain. Electronically Signed: Levi Jenkins DO at 16:39 EST , Cervical Spine CT 02/01/24 15:49 IMPRESSION: Degenerative changes of the cervical spine. Electronically Signed: Levi Jenkins DO at 16:50 EST , Chest X-Ray 02/01/24 15:49 IMPRESSION: Hyperaeration. Electronically Signed: Levi Jenkins DO at 17:36 EST ,
--- NOTE | 2024-02-02 10:18 | CASEMGMT ---
Discharge Planning Pt resides at [facility] and would like to return if appropriate. Natalia Mendiola DC Planning Asst.
[2024-02-02] MEDS: buPROPion (XL) 150 MG TABLET.XL PO (11:28)
[2024-02-02] MEDS: Enoxaparin 40 MG/0.4 ML Syringe SC (11:28)
[2024-02-02] MEDS: Pantoprazole Sodium 40 MG Tablet PO (11:28)
[2024-02-02] MEDS: ARIPiprazole 5 MG Tablet PO (11:29)
[2024-02-02] MEDS: FLU VACCINE **HIGH DOSE** TV 24-25 180 MCG/0.5 ML SYRINGE IM (14:26)
[2024-02-02 15:19] VITALS: BP 101/59; PULSE 74; RESP 18; TEMP 36.8; O2SAT 100
--- NOTE | 2024-02-02 15:41 | CASEMGMT ---
Discharge Planning Updates faxed to [facility] with note that patient may return over the weekend. Fax confirmation rec'd. Natalia Mendiola DC Planning Asst.
[2024-02-02] MEDS: Ensure Plus High Protein 120 ML LIQUID PO ×2 (17:32→22:04)
[2024-02-02 17:40] VITALS: BP 105/68; PULSE 70; RESP 16; TEMP 36.6; O2SAT 98
[2024-02-02] MEDS: traZODone 50 MG Tablet PO (22:00)
[2024-02-02] MEDS: Acetaminophen 325 MG Tablet 650 MG PO (22:04)
[2024-02-02 22:07] VITALS: BP 110/74; PULSE 87; RESP 12; TEMP 36.8; O2SAT 99
[2024-02-03 03:33] VITALS: BP 124/80; PULSE 70; RESP 14; TEMP 36.7; O2SAT 99
[2024-02-03 06:44] LABS: Hematocrit 38.4 % (40-54); Hemoglobin 12.9 g/dL (13.0-16.5); Mean Corp Hgb Conc 33.6 g/dL (32-36); Mean Corpuscular Hgb 33.7 pg (27.0-32.0); Mean Corpuscular Volume 100.3 fL (80-94); Mean Platelet Vol. 11.2 fl (6.2-12.0); Platelet Count 145 K/mm3 (150-450); RBC Distribution Width CV 12.4 % (11.6-14.6); RBC Distribution Width SD 45.9 fl (35.1-43.9); Red Blood Count 3.83 M/mm3 (4.6-6.2); White Blood Count 5.2 K/mm3 (4.4-11.0)
[2024-02-03 07:19] LABS: Anion Gap 5 (5-15); BUN 14 mg/dL (7-18); BUN/Creat Ratio 12.4 RATIO (10-20); Calcium,Total 8.9 mg/dL (8.5-10.1); Chloride 104 mmol/L (98-107); Creatinine, Serum 1.13 mg/dL (0.70-1.30); EST Glomerular Filtration Rate 69 mL/min (>60); Est Glom Filt Rate - Afr Amer 84 mL/min (>60); Estimated Creatinine Clearance 55.22 ml/min; Glucose 91 mg/dL (74-106); Sodium Level 141 mmol/L (136-145)
[2024-02-03] MEDS: Pantoprazole Sodium 40 MG Tablet PO (10:26)
[2024-02-03] MEDS: buPROPion (XL) 150 MG TABLET.XL PO (10:26)
[2024-02-03] MEDS: Enoxaparin 40 MG/0.4 ML Syringe SC (10:26)
[2024-02-03] MEDS: ARIPiprazole 5 MG Tablet PO (10:27)
[2024-02-03] MEDS: Ensure Plus High Protein 120 ML LIQUID PO ×4 (10:30→22:43)
--- NOTE | 2024-02-03 13:33 | PN.HOSP_ITS ---
Reason for Visit Reason for Visit: Diagnoses Acute kidney failure, unspecified (02/01/24) Syncope and collapse (02/01/24) Unspecified injury of head, subsequent encounter (02/01/24) Subjective Subjective Saw patient at bedside this morning. Sitting up comfortably in bed, in no acute distress. Denied any pain or discomfort. Denied any palpitations or dizziness. No other acute concerns. Objective Data Objective Data Vital Signs: Vital Signs Temp Pulse Resp BP Pulse Ox O2 Del Method 98.0 F 70 14 124/80 H 99 Room Air 02/03/24 03:33 02/03/24 03:33 02/03/24 03:33 02/03/24 03:33 02/03/24 03:33 02/03/24 03:33 Oxygen Delivery Method Room Air Weight: 59.9 kg Body Mass Index (BMI) 18.9 Intake & Output: Intake and Output for Last 24 Hours 02/01/24 02/02/24 02/03/24 23:59 23:59 23:59 Intake Total 2200 / 2200 3050 / 3050 Output Total 1525 / 1525 0 / 0 Balance 2200 / 2200 1525 / 1525 0 / 0 Lab / Micro Data 02/03/24 06:10 02/03/24 06:10 Labs: Laboratory Results - last 24 hr 02/03/24 06:10: WBC 5.2, RBC 3.83 L, Hgb 12.9 L, Hct 38.4 L, MCV 100.3 H, MCH 33.7 H, MCHC 33.6, RDW Std Deviation 45.9 H, RDW Coeff of Lola 12.4, Plt Count 145 L, MPV 11.2, Sodium 141, Potassium 4.0, Chloride 104, Carbon Dioxide 33.0 H, Anion Gap 5, BUN 14, Creatinine 1.13, Estim Creat Clear Calc 55.22, Est GFR (MDRD) Af Amer 84, Est GFR (MDRD) Non-Af 69, BUN/Creatinine Ratio 12.4, Glucose 91, Calcium 8.9 Radiography Diagnostic Testing: Radiology Impression Echocardiogram 02/01/24 20:02 Interpretation Summary Normal LV size. Left ventricular systolic function is normal. The left ventricular ejection fraction is 60 %. Structurally normal valves. Ordering Physician: Tasha Queen Referring Physician: Rambo Mora Performed By: Anna Martinez RCS Rhythm Strip Rhythm Strip: Sinus Rhythm Rate: 65 Ectopy: - (One 3.6-second pause noted that was asymptomatic.) Physical Exam Const alert, oriented x3 and no apparent distress Constitutional Narrative: Elderly male, thin appearing, flat affect, otherwise sitting up comfortably in bed, answering questions appropriately, in no acute distress. General Appearance: cooperative and comfortable HEENT normocephalic, head/scalp atraumatic, hearing grossly normal bilaterally, nasal mucous membranes and turbinates normal and moist oral mucous membranes Eyes PERRL, EOMs intact bilaterally and conjunctivae normal Neck full ROM Chest inspection of chest normal Resp normal respiratory effort, normal air movement, no use of accessory muscles and clear to auscultation bilaterally Cardio regular rate, regular rhythm, no murmurs and peripheral pulses 2+ throughout GI normal to inspection, nondistended, normoactive bowel sounds, soft to palpation, non-tender and non-distended Back/Spine normal ROM Extremity normal to inspection, full ROM and no pedal edema Skin no rashes or lesions noted Psych mental status grossly normal Psych Narrative: Flat affect. Assessment & Plan Assessment/Plan (1) Syncope: QUALIFIERS: Syncope type: unspecified Qualified Code(s): R55 - Syncope and collapse (2) DAMARIS (acute kidney injury): PLAN: Plan Patient is a 63 year old male who presented to [facility] ED on 02/01/2024 after a syncopal episode. 1. Syncopal episode with sinus pause ? Cardiology following. Presented after a syncopal episode at his assisted living facility. Notably had an episode of sinus pause of 3.6 seconds on morning of 02/01 and he was asymptomatic for this. Echo was unremarkable. Was dehydrated on admission with DAMARIS which likely contributed. Not on any medications that would cause heart block; notably his medications for depression/anxiety are associated with dizziness. Will continue to monitor telemetry and if he remains stable tomorrow, will plan for discharge back to AL facility. 2. DAMARIS, resolved ? Creatinine 1.73 on admit, resolved back to baseline around 1 with IV fluid resuscitation. 3. Depression/anxiety ? Stable. Continue home aripiprazole, bupropion and trazodone at night. 4. GERD ? Continue home PPI. 5. Reported history of dementia ? Has donepezil listed on home medication list but does not appear he has been taking this. This medication could be associated with bradycardia and possible heart block. Will hold this medication and plan to discontinue on discharge. DVT prophylaxis: Lovenox Code status: DNRCCA, DNI Expected disposition: Back to assisted living, 1 to 2 days Total clinical time spent by myself addressing the patient's medical issues, reviewing all the data, and collaborating with patient's care team: 35 minutes. Charges/Coding Visit Charges Inpatient E&M: 94246 Subs Hosp L2
[2024-02-03 15:10] VITALS: BP 105/74; PULSE 79; RESP 18; TEMP 37.5; O2SAT 98
[2024-02-03 21:10] VITALS: BP 111/76; PULSE 80; RESP 16; TEMP 36.9; O2SAT 98
[2024-02-03] MEDS: traZODone 50 MG Tablet PO (22:20)
[2024-02-04 03:00] VITALS: BP 95/62; PULSE 75; RESP 16; TEMP 37; O2SAT 97
[2024-02-04 09:00] VITALS: BP 116/75; PULSE 84; RESP 16; TEMP 36.7; O2SAT 99
[2024-02-04] MEDS: ARIPiprazole 5 MG Tablet PO (09:03)
[2024-02-04] MEDS: Ensure Plus High Protein 120 ML LIQUID PO ×2 (09:03→12:38)
[2024-02-04] MEDS: Pantoprazole Sodium 40 MG Tablet PO (09:03)
[2024-02-04] MEDS: buPROPion (XL) 150 MG TABLET.XL PO (09:03)
[2024-02-04] MEDS: Enoxaparin 40 MG/0.4 ML Syringe SC (09:03)
--- NOTE | 2024-02-04 12:09 | DCINST_ITS ---
Discharge Instructions Diet Discharge Diet: No restrictions DC O2, CPAP, BIPAP needs Additional Home O2 Discharge instructions: No Dressing / Incision Discharge Activity: No Restrictions Follow Up Care Test Results: Test results from this visit will be discussed in further detail at your follow- up appointment, if applicable. Discharge Plan Admission Admit Date/Time: 02/01/24 18:40 Primary Reason for Your Visit: episode of passing out with dehydration Attending Provider: Yan Pan Primary Care Provider: Care Physician,No Primary Consulting Providers: Tasha Queen; Landen Adorno; Chucho Meyer Instructions Additional Instructions / Restrictions: Please stop taking donepezil and Paxil. Continue all other home medications as noted below. Follow-up with your primary care doctor as needed. Discharge Orders/Prescriptions Prescriptions: Continued meloxicam 7.5 mg tablet 7.5 mg PO DAILY PRN (Reason: pain) trazodone 100 mg tablet 100 mg PO QHS pantoprazole 40 mg tablet,delayed release (DR/EC) 40 mg PO DAILY aripiprazole 5 mg tablet 5 mg PO DAILY bupropion HCl 150 mg tablet extended release 24 hr 150 mg PO DAILY acetaminophen [Tylenol Extra Strength] 500 mg tablet 500 mg PO Q4H PRN (Reason: pain) ibuprofen [Advil] 200 mg tablet 400 mg PO Q6H PRN (Reason: pain) Discontinued paroxetine HCl [Paxil] 30 mg tablet 30 mg PO DAILY Qty: 14 0RF donepezil 5 mg tablet 5 mg PO QHS Referrals / Follow Up: Care Physician,No Primary [Primary Care Provider] - Jerardo Ovalle NP, [employer]-[facility] [Non-Staff] - Disposition Disposition (needs filled in before D/C Order can be placed): Assisted Living
--- NOTE | 2024-02-04 12:09 | DS.PCM_ITS ---
Providers Date of Admission: 02/01/24 Date of Discharge: 02/04/24 Primary Care Physician: Beatriz Primary Care Phys Consultations 02/02/24 09:23 Consult: Cardiology Routine Consulting Provider: Landen Adorno Reason for Consult: Syncope; pause on telemetry EMERGENT Consult: No MD Notified: Yes Date Notified: 02/02/24 Time Notified: 09:23 Method of Notification: Text Reason For Visit: SYNCOPE Diagnosis Discharge Diagnosis (1) Syncope: Status: Acute Code(s): R55 - Syncope and collapse Qualifiers: Syncope type: unspecified Qualified Code(s): R55 - Syncope and collapse (2) DAMARIS (acute kidney injury): Status: Acute Code(s): N17.9 - Acute kidney failure, unspecified Medications at Discharge Home Medications acetaminophen 500 mg tablet (Tylenol Extra Strength) 500 mg PO Q4H PRN pain 02/01/24 aripiprazole 5 mg tablet 5 mg PO DAILY mental health 02/01/24 bupropion HCl 150 mg 24 hr tablet, extended release 150 mg PO DAILY mental health 02/01/24 ibuprofen 200 mg tablet (Advil) 400 mg PO Q6H PRN pain 02/01/24 meloxicam 7.5 mg tablet 7.5 mg PO DAILY PRN pain 02/01/24 pantoprazole 40 mg tablet,delayed release 40 mg PO DAILY reflux 02/01/24 trazodone 100 mg tablet 100 mg PO QHS sleep 02/01/24 Hospital Course Operations None Procedures EKG, Transthoracic echo and - (Chest x-ray, CT cervical spine, CT brain) Summary of Care Provided Minutes Spent on Discharge: 35 Hospital Course: Patient is a 63 year old male who presented to [facility] ED on 02/01/2024 after a syncopal episode. Hospital course as noted below. Patient discharged back to assisted living facility in stable condition on 02/03. 1. Syncopal episode with sinus pause ? Cardiology followed. Presented after a syncopal episode at his assisted living facility. Notably had an episode of sinus pause of 3.6 seconds on morning of 02/01 and he was asymptomatic for this. Echo was unremarkable. Was dehydrated on admission with DAMARIS which likely contributed. Not on any medications that would cause heart block; notably his medications for depression/anxiety are associated with dizziness. Telemetry remained unremarkable for last 48 hours of admission. Stable for discharge back to assisted living facility on no new medications. 2. DAMARIS, resolved ? Creatinine 1.73 on admit, resolved back to baseline around 1 with IV fluid resuscitation. 3. Depression/anxiety ? Stable. Continue home aripiprazole, bupropion and trazodone at night. 4. GERD ? Continue home PPI. 5. Reported history of dementia ? Has donepezil listed on home medication list but does not appear he has been taking this. This medication could be associated with bradycardia and possible heart block. Held during hospitalization and discontinued on discharge. Total clinical time spent by myself addressing the patient's medical issues, reviewing all the data, and collaborating with patient's care team: 35 minutes. Physical Exam Const alert, oriented x3 and no apparent distress Constitutional Narrative: Elderly male, thin appearing, flat affect, otherwise sitting up comfortably in bed, answering questions appropriately, in no acute distress. General Appearance: cooperative and comfortable HEENT normocephalic, head/scalp atraumatic, hearing grossly normal bilaterally, nasal mucous membranes and turbinates normal and moist oral mucous membranes Eyes PERRL, EOMs intact bilaterally and conjunctivae normal Neck full ROM Chest inspection of chest normal Resp normal respiratory effort, normal air movement, no use of accessory muscles and clear to auscultation bilaterally Cardio regular rate, regular rhythm, no murmurs and peripheral pulses 2+ throughout GI normal to inspection, nondistended, normoactive bowel sounds, soft to palpation, non-tender and non-distended Back/Spine normal ROM Extremity normal to inspection, full ROM and no pedal edema Skin no rashes or lesions noted Psych mental status grossly normal Psych Narrative: Flat affect. Weight / BMI Weight Weight: 59.9 kg Body Mass Index (BMI) 18.9 ABG / Lab / Microbiology Data 02/03/24 06:10 02/03/24 06:10 D/C Instructions DC O2, CPAP, BIPAP Needs Additional Home O2 Discharge instructions: No DC home with Oxygen: No Meaningful Use Info Meaningful Use Meaningful Use Diagnoses (Choose all that apply): None applicable Ischemic Stroke Statin Dosing Therapy Reference: STATIN DOSE THERAPY REFERENCE: * Patients > 75 years receive moderate or high dose statin therapy. * Patients 75 years or YOUNGER should receive HIGH intensity statin dose unless contraindicated. You will be required to document reason for non-treatment if statin daily dose does not meet guidelines. HIGH DOSE STATIN THERAPY DAILY Atorvastatin > than or = to 40 mg Rosuvastatin > than or = to 20 mg Amlodipine + Atorvastatin > than or = to 2.5/40 mg Ezetimibe + Simvastatin 10/80 mg Simvastatin 80mg Discharge Plan Admission Admit Date/Time: 02/01/24 18:40 Primary Reason for Your Visit: episode of passing out with dehydration Attending Provider: Yan Pan Primary Care Provider: Care Physician,No Primary Consulting Providers: Tasha Queen; Landen Adorno; Chucho Meyer Instructions Additional Instructions / Restrictions: Please stop taking donepezil and Paxil. Continue all other home medications as noted below. Follow-up with your primary care doctor as needed. Discharge Orders/Prescriptions Prescriptions: Continued meloxicam 7.5 mg tablet 7.5 mg PO DAILY PRN (Reason: pain) trazodone 100 mg tablet 100 mg PO QHS pantoprazole 40 mg tablet,delayed release (DR/EC) 40 mg PO DAILY aripiprazole 5 mg tablet 5 mg PO DAILY bupropion HCl 150 mg tablet extended release 24 hr 150 mg PO DAILY acetaminophen [Tylenol Extra Strength] 500 mg tablet 500 mg PO Q4H PRN (Reason: pain) ibuprofen [Advil] 200 mg tablet 400 mg PO Q6H PRN (Reason: pain) Discontinued paroxetine HCl [Paxil] 30 mg tablet 30 mg PO DAILY Qty: 14 0RF donepezil 5 mg tablet 5 mg PO QHS Referrals / Follow Up: Care Physician,No Primary [Primary Care Provider] - Jerardo Ovalle SENIOR GEOLOGIST, SENIOR GEOLOGIST-C [Non-Staff] - Disposition Disposition (needs filled in before D/C Order can be placed): Assisted Living
== END 2024-02-04 13:55 | disposition home or self-care (01) | DRG 683 ==
LOC: ED 18:33 → PCU 18:53
PROVIDERS: Physician Assistant; Admitting Provider Internal Medicine; Emergency Provider Emergency Medicine; Referring Provider Emergency Medicine; Visit Provider Hospitalist
DX: N17.9 Acute kidney failure, unspecified (principal); R64 Cachexia; Z68.1 Body mass index [BMI] 19.9 or less, adult; I49.5 Sick sinus syndrome; S01.111A Laceration without foreign body of right eyelid and periocular area, initial encounter; S01.81XA Laceration without foreign body of other part of head, initial encounter; K21.9 Gastro-esophageal reflux disease without esophagitis; E86.0 Dehydration; F41.8 Other specified anxiety disorders; I95.1 Orthostatic hypotension; R19.7 Diarrhea, unspecified; R55 Syncope and collapse; Z23 Encounter for immunization; R63.0 Anorexia; G47.00 Insomnia, unspecified
CPT/HCPCS: 36415; 70450; 71046; 72125; 80048; 84443; 84484; 85025; 85027; 90471; 90662; 90715; 93005; 93306; 97161; 97166; 97802; 99285; J7030; A4216

== ENCOUNTER → 2024-10-14 | Outpatient (CLI) | payer MEDICARE, MEDICAID, SELFPAY ==
[2024-10-14 11:21] LABS: Hematocrit 39.0 % (40-54); Hemoglobin 13.3 g/dL (13.0-16.5); Immature Granulocytes Count 0.030 X10^3/uL (0.0-0.0); Mean Corp Hgb Conc 34.1 g/dL (32-36); Mean Corpuscular Volume 96.1 fL (80-94); Mean Platelet Vol. 11.5 fl (6.2-12.0); NRBC Flagged by Analyzer 0 % (0-5); Platelet Count 151 K/mm3 (150-450); RBC Distribution Width CV 12.3 % (11.6-14.6); RBC Distribution Width SD 42.8 fl (35.1-43.9); Red Blood Count 4.06 M/mm3 (4.6-6.2); White Blood Count 5.5 K/mm3 (4.4-11.0)
[2024-10-14 12:16] LABS: Iron 78 ug/dL (65-175); Iron Binding Capacity,Unsat 131 ug/dL (228-428); Vitamin B12 871 pg/mL (180-914)
[2024-10-14 12:43] LABS: Iron Binding Capacity,Total 209 ug/dL (250-450)
== END | disposition home or self-care (01) ==
LOC: LAB 10:55
PROVIDERS: PCP Nurse Practitioner Adult Health; Referring Provider Nurse Practitioner Acute Care; Visit Provider Nurse Practitioner Acute Care
DX: D64.9 Anemia, unspecified (principal)
CPT/HCPCS: 36415; 82607; 83540; 83550; 85025

== ENCOUNTER 2024-11-22 11:24 | Day surgery (SDC) | payer MEDICARE, MEDICAID, SELFPAY ==
--- NOTE | 2024-11-08 15:46 | PAT.ANE_ITS ---
Pre-Assessment Diagnosis/Proposed Procedure Planned Operative Procedure(s): EGD/CSCOPE Anesthesia History Anesthesia History - weatherization coordinator: Anesthesia History - weatherization coordinator Hx Hospitalization Yes: 01/2024 FAINTED DUE TO 11/08/24 12:24 DEHYDRATION Any Problems With Anesthesia No 11/08/24 12:24 Cholinesterase deficiency No 11/08/24 12:24 You/Your Family Experience No 11/08/24 12:24 fever (hyperthermia) with Relationship Recent Exposure to Contagious Disease Does patient have nerve No 11/08/24 12:24 stimulator Patient instructed to have device shut off --Does patient have Pacemaker or ICD? When Was Last Pacemaker Check QUESTION #4 FULL TEXT: You/Your Family Experience fever (hyperthermia) with Anesthesia Last Oral Intake Last Oral intake: Last Oral Intake NPO since Meds taken in AM with sips of water? Meds patient instructed to take am of surgery PONV PONV - weatherization coordinator: PONV - weatherization coordinator Female No 11/08/24 12:24 HX of Motion Sickness No 11/08/24 12:24 HX of N/V After Surgery No 11/08/24 12:24 Non-Smoker Yes 11/08/24 12:24 Duration of Surgery greater No 11/08/24 12:24 than 60 minutes Number of Risk Factors 1 11/08/24 12:24 PONV Score Low Risk 11/08/24 12:24 Height & Weight Height & Weight: Anesthesia: Height & Weight Height 5 ft 10 in 10/14/24 10:26 Respiratory Assessment Respiratory Assessment - weatherization coordinator: Respiratory Tract Infection Hx - weatherization coordinator Hx Respiratory Tract Infection No 11/08/24 12:24 STOP Sleep Apnea STOP Sleep Apnea - weatherization coordinator: STOP Sleep Apnea - weatherization coordinator Hx Hypertension No 11/08/24 12:24 Hx Sleep Apnea No 11/08/24 12:24 CPAP BIPAP Do you snore loudly (louder No 11/08/24 12:24 than talking or can be heard Do you often feel tired/ No 11/08/24 12:24 fatigued/ sleepy during daytime? Has anyone observed you stop No 11/08/24 12:24 breathing during sleep? STOP Results Negative 11/08/24 12:24 QUESTION #5 FULL TEXT : Do you snore loudly (louder than talking or can be heard through closed doors)? 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 Specify any problems Hx of Preganancy in last 3 N/A 11/08/24 12:24 Months Nurse Filling Out Transfusion DSCHRIBER 11/08/24 12:24 & Questions: Date: 11/08/24 11/08/24 12:24 Time: 12:27 11/08/24 12:24 Patient unable to answer at this time (ie. confused, unrespo /Reproduction History /Reproductive History - weatherization coordinator: /Reproductive Hx- weatherization coordinator Hx Now No 11/08/24 12:24 Gestational Age (in weeks): EDC: Hx Hx Para Hx Section SAB No 11/08/24 12:24 PFSH Medical History (Updated 11/08/24 @ 12:41 by Yulisa Mcnamara) Loss of consciousness History of echocardiogram Cardiology follow-up encounter Lives in assisted living facility Bladder disease Autism Anemia Suicide attempt Acute insomnia GERD (gastroesophageal reflux disease) Anxiety Depression Home Medications ?Medication ?Instructions ?Recorded ?Last Taken ?Type aripiprazole 5 mg tablet 7.5 mg PO DAILY mental healt h 02/01/24 Unknown History bupropion HCl 150 mg 24 hr tablet, 150 mg PO DAILY [facility] 02/01/24 Unknown History extended release ibuprofen 200 mg tablet (Advil) 400 mg PO Q6H PRN pain 02/01/24 Unknown History meloxicam 7.5 mg tablet 7.5 mg PO DAILY PRN pain 07/20 Unknown History pantoprazole 40 mg tablet,delayed 40 mg PO DAILY reflu x 02/01/24 Unknown History release mirtazapine 7.5 mg tablet 7.5 mg PO QHS 10/14/24 Unkno wn History ondansetron 4 mg disintegrating 4 mg PO Q4H PRN nausea and vomiting 10/14/24 Unknown History tablet solifenacin 10 mg tablet 10 mg PO QDAY 10/14/24 Unkno wn History tamsulosin 0.4 mg capsule 0.4 mg PO QHS 10/14/24 Unkno wn History acetaminophen 325 mg tablet (Pain 650 mg PO Q6H PRN pa in 11/08/24 Unknown History Relief (acetaminophen)) Allergy/AdvReac Type Severity Reaction Status Date / Time No Known Allergies Allergy Verified 11/08/24 12:08 Surgical History History of facial surgery History of surgery on lower extremity Hx of cholecystectomy Social History housing: apartment current occupational status: unemployed Smoking Status: Never smoker Recommendation Anesthesia Recommendation Anesthesia recommendation: OPTIMIZED for anesthesia
[2024-11-22] VITALS (10 sets, daily range): BP systolic 93–121; BP diastolic 66–81; PULSE 73–105; RESP 14–18; TEMP 36.1–36.5; O2SAT 98–100; BMI 21.0
--- NOTE | 2024-11-22 11:53 | HP.PCM_ITS ---
[facility] - General General Date of Admission: 11/22/24 Date of Service: 11/22/24 Chief Complaint: Anemia and screening colonoscopy HPI Narrative JAYCOB MARAH, is a 63 M who presents for an egd and colonosocpy Details: - never had a colonoscopy or EGD - taking pantoprazole and this helps - he lives alone - no longer drives - denies any heart or lung disease - denies any kidney disease - never been told he is a difficult intubation - Family history is significant for father with colon CA at 79y/o. - resides in assisted living The patient is a 63-year-old male presenting with a need for colonoscopy and endoscopy evaluation due to a family history of colon cancer and long-term management of reflux esophagitis. The patient reports that he has never had a colonoscopy before. There is a significant family history as the patient's father of colon cancer at the age of 79. The patient denies any personal history of colon polyps, change in bowel habits, blood in stools, or abdominal pain. He also denies any gastrointestinal symptoms such as heartburn, indigestion, nausea, or vomiting. The patient has a history of reflux, which has been managed with pantoprazole 40 mg daily, effectively controlling his symptoms. He denies any difficulty swallowing or history of esophageal or stomach cancer in his family. The patient also has a surgical history that includes cholecystectomy due to gallstones and facial reconstruction surgery following a suicide attempt, involving repair with seven plates. Additionally, the patient suffered a significant fracture to the left leg that required surgical intervention to ensure proper healing. He lives alone in an assisted living facility and has been receiving care from a nurse practitioner. The patient denies any alcohol use and has a non-smoking history. He does not drive any longer. Regarding his medical history, there is no history of heart, lung, kidney disease, or unexpected weight loss. The recent blood work indicated mild anemia, which was never previously identified, and the patient denies any symptoms such as chest pain, shortness of breath, black, or tarry stools. COUNTS INCLUDE 234 BEDS AT [facility] Medical History Loss of consciousness History of echocardiogram Cardiology follow-up encounter Lives in assisted living facility Bladder disease Autism Anemia Suicide attempt Acute insomnia GERD (gastroesophageal reflux disease) Anxiety Depression Home Medications ?Medication ?Instructions ?Recorded ?Last Taken ?Type aripiprazole 5 mg tablet 7.5 mg PO DAILY mental healt h 02/01/24 Unknown History bupropion HCl 150 mg 24 hr tablet, 150 mg PO DAILY [facility] 02/01/24 Unknown History extended release ibuprofen 200 mg tablet (Advil) 400 mg PO Q6H PRN pain 02/01/24 Unknown History meloxicam 7.5 mg tablet 7.5 mg PO DAILY PRN pain 07/20 Unknown History pantoprazole 40 mg tablet,delayed 40 mg PO DAILY reflu x 02/01/24 Unknown History release mirtazapine 7.5 mg tablet 7.5 mg PO QHS 10/14/24 Unkno wn History ondansetron 4 mg disintegrating 4 mg PO Q4H PRN nausea and vomiting 10/14/24 Unknown History tablet solifenacin 10 mg tablet 10 mg PO QDAY 10/14/24 Unkno wn History tamsulosin 0.4 mg capsule 0.4 mg PO QHS 10/14/24 Unkno wn History acetaminophen 325 mg tablet (Pain 650 mg PO Q6H PRN pa in 11/08/24 Unknown History Relief (acetaminophen)) Allergy/AdvReac Type Severity Reaction Status Date / Time No Known Allergies Allergy Verified 11/22/24 11:54 Surgical History History of facial surgery History of surgery on lower extremity Hx of cholecystectomy Social History housing: apartment current occupational status: unemployed Smoking Status: Never smoker ROS Constitutional Constitutional: Denies fatigue, fever(s), poor appetite, weight gain or weight loss Gastrointestinal Gastrointestinal: Denies belching, bloating, change in bowel habits, change in stool character, chewing difficulty, coffee ground emesis, constipation, cramping, diarrhea, dyspepsia, dysphagia, early satiety, excessive flatus, fecal incontinence, heartburn, hematemesis, hematochezia, hemorrhoids, loose stools, melena, nausea, odynophagia, rectal bleeding, tenesmus, vomiting or weight changes Physical Exam Const alert, oriented x3, no apparent distress and healthy appearing General Appearance: cooperative GI normal to inspection, nondistended, normoactive bowel sounds, soft to palpation, non-tender and non-distended Percussion: normal to percussion Rectal Exam: deferred Assessment & Plan Assessment/Plan (1) Screen for colon cancer: (2) Anemia: PLAN: Assessment and Plan Assessment and Plan (1) Anemia: Status: Acute (2) Family history of colon cancer in father: Status: Acute (3) Screen for colon cancer: Status: Acute Orders: Orders CBC W/Diff, Automated Today D64.9 - Anemia, unspecified Iron+Iron Binding Capacity Today D64.9 - Anemia, unspecified Vitamin B12 Today D64.9 - Anemia, unspecified Medications: New peg 3350-sod sulf,[id number] 178.7-7.3-0.5 gram (Suflave) Take as directed for split dose bowel prep 2 mL 0RF Plan 63-year-old male with a history of reflux presenting with the need for colonoscopy and endoscopy evaluation. The patient is scheduled for these procedures due to a significant family history of colon cancer and long-term treatment for reflux. A mild anemia was noted in his recent blood work, but he denies any symptoms consistent with gastrointestinal bleeding such as melena or hematochezia. The patient?s reflux has been well-controlled with pantoprazole, a Proton Pump Inhibitor (PPI), and there are no new symptoms suggestive of esophageal complications. Based on the history, further evaluation with endoscopic procedures is warranted to screen for any potential gastrointestinal pathologies, given the family history and the necessity to rule out malignancies or other complications. Patient Instructions: Labs today Colon & EGD - Suflave
[2024-11-22] MEDS: Lactated Ringers 1,000 ML 15 ML IV (12:04)
--- NOTE | 2024-11-22 12:07 | PCM.PRE.AN2 ---
ASA Classification* ASA Classification ASA Classification: 3 Assessment & Plan Anesthesia* Anesthesia Assessment Anesthesia Assessment: Discussed sedation and/or anesthesia options, risks, benefits, and alternatives with patient/parents/legal guardian/POA. Questions invited. The patient/parents/legal guardian/POA seems to understand and agrees to proceed with anesthesia plan. Reviewed the physical assessment, medical history, allergy history and patient home medications list prior to surgery/procedure/anesthetic and documented any changes. Performed airway and anesthesia risk assessments. Anesthesia Type Anesthesia Type: MAC History Source History Obtained from:: Patient and Chart Anesthesia Focused Assessment* Temperature: 97.7 F Pulse Rate: 105 Blood Pressure: 121/70 Respiratory Rate: 18 Pulse Ox: 100 Oxygen Delivery Method: Room Air Airway Assessment Mouth opens: >3 cm Mallampati Score: II Teeth Condition: Missing (Very poor dentition. Only a few rotten roots teeth present) Neck Range of motion (ROM): Full ROM Labs Anesthesia Preop lab: CBC WBC, (4.4-11.0) 5.5 K/mm3 10/14/24, 10:57 RBC, (4.6-6.2) 4.06 M/mm3 L 10/14/24, 10:57 Hgb, (13.0-16.5) 13.3 g/dL 10/14/24, 10:57 Hct, (40-54) 39.0 % L 10/14/24, 10:57 Plt Count, (150-450) 151 K/mm3 10/14/24, 10:57 CHEMISTRY Potassium, (3.5-5.1) 4.0 mmol/L 02/03/24, 06:10 Sodium, (136-145) 141 mmol/L 02/03/24, 06:10 BUN, (7-18) 14 mg/dL 02/03/24, 06:10 Creatinine, (0.70-1.30) 1.13 mg/dL 02/03/24, 06:10 Glucose, (74-106) 91 mg/dL 02/03/24, 06:10 TSH, (0.358-3.740) 1.080 uIU/mL 02/02/24, 04:40 COAG Pre-Assessment Diagnosis/Proposed Procedure Planned Operative Procedure(s): EGD/CSCOPE Anesthesia History Anesthesia History - performing arts technicians: Anesthesia History - performing arts technicians Hx Hospitalization Yes: 01/2024 FAINTED DUE TO 11/08/24 12:24 DEHYDRATION Any Problems With Anesthesia No 11/08/24 12:24 Cholinesterase deficiency No 11/08/24 12:24 You/Your Family Experience No 11/08/24 12:24 fever (hyperthermia) with Relationship Recent Exposure to Contagious No 11/22/24 11:59 Disease Does patient have nerve No 11/08/24 12:24 stimulator Patient instructed to have device shut off --Does patient have Pacemaker No 11/22/24 11:59 or ICD? When Was Last Pacemaker Check QUESTION #4 FULL TEXT: You/Your Family Experience fever (hyperthermia) with Anesthesia Last Oral Intake Last Oral intake: Last Oral Intake NPO since 10:30 11/22/24 11:59 Meds taken in AM with sips of Yes 11/22/24 11:59 water? Meds patient instructed to see chart 11/22/24 11:59 take am of surgery PONV PONV - performing arts technicians: PONV - performing arts technicians Female No 11/08/24 12:24 HX of Motion Sickness No 11/08/24 12:24 HX of N/V After Surgery No 11/08/24 12:24 Non-Smoker Yes 11/08/24 12:24 Duration of Surgery greater No 11/08/24 12:24 than 60 minutes Number of Risk Factors 1 11/08/24 12:24 PONV Score Low Risk 11/08/24 12:24 Height & Weight Height & Weight: Anesthesia: Height & Weight Height 5 ft 10 in 11/22/24 11:59 Weight: 66.5 kg 11/22/24 11:59 Body Mass Index (BMI) 21.0 11/22/24 11:59 Respiratory Assessment Respiratory Assessment - performing arts technicians: Respiratory Tract Infection Hx - performing arts technicians Hx Respiratory Tract Infection No 11/08/24 12:24 STOP Sleep Apnea STOP Sleep Apnea - performing arts technicians: STOP Sleep Apnea - performing arts technicians Hx Hypertension No 11/08/24 12:24 Hx Sleep Apnea No 11/08/24 12:24 CPAP BIPAP Do you snore loudly (louder No 11/08/24 12:24 than talking or can be heard Do you often feel tired/ No 11/08/24 12:24 fatigued/ sleepy during daytime? Has anyone observed you stop No 11/08/24 12:24 breathing during sleep? STOP Results Negative 11/08/24 12:24 QUESTION #5 FULL TEXT : Do you snore loudly (louder than talking or can be heard through closed doors)? Tobacco Use History Tobacco Use History - performing arts technicians: Tobacco Use History - performing arts technicians Tobacco Use Smoking Status Never smoker 11/08/24 12:24 Hx Tobacco Use No 11/08/24 12:24 Years Smoking Packs Smoked per Day Smoking Cessation Date was within the last 15 years Hx Smoking Cessation Date Hx Smoking Cessation Counseling Hematologic Medial History Hematologic Hx - performing arts technicians: Hematologic Medical Hx - developmental services worker Hx of Blood Transfusion No 11/08/24 12:24 Hx of Transfusion in last 3 No 11/08/24 12:24 Months Date of Last Transfusion (if within last 3 months) Ever experience any problems No 11/08/24 12:24 with transfusion(s)? Specify any problems Hx of Preganancy in last 3 N/A 11/08/24 12:24 Months Nurse Filling Out Transfusion DSCHRIBER 11/08/24 12:24 & Questions: Date: 11/08/24 11/08/24 12:24 Time: 12:27 11/08/24 12:24 Patient unable to answer at this time (ie. confused, unrespo /Reproduction History /Reproductive History - performing arts technicians: /Reproductive Hx- performing arts technicians Hx Now No 11/08/24 12:24 Gestational Age (in weeks): EDC: Hx Hx Para Hx Section SAB No 11/08/24 12:24 Active Medications Active Medications: Current Medications Generic Name Dose Route Start Last Admin Trade Name Freq PRN Reason Stop Dose Admin Lactated Ringer's 1,000 mls @ 15 mls/hr 11/22/24 11:45 11/22/24 12:04 IV 15 mls/hr .Q48H MARGIE Administration PFSH Medical History Loss of consciousness History of echocardiogram Cardiology follow-up encounter Lives in assisted living facility Bladder disease Autism Anemia Suicide attempt Acute insomnia GERD (gastroesophageal reflux disease) Anxiety Depression Home Medications ?Medication ?Instructions ?Recorded ?Last Taken ?Type aripiprazole 5 mg tablet 7.5 mg PO DAILY mental health 02/01/24 11/22/24 History bupropion HCl 150 mg 24 hr tablet, 150 mg PO DAILY mental health 02/01/24 11/22/24 History extended release ibuprofen 200 mg tablet (Advil) 400 mg PO Q6H PRN pain 02/01/24 Unknown History meloxicam 7.5 mg tablet 7.5 mg PO DAILY PRN pain 02/01/24 11/22/24 History pantoprazole 40 mg tablet,delayed 40 mg PO DAILY reflux 02/01/24 11/22/24 History release mirtazapine 7.5 mg tablet 7.5 mg PO QHS 10/14/24 11/21/24 History ondansetron 4 mg disintegrating 4 mg PO Q4H PRN nausea and vomiting 10/14/24 Unknown History tablet solifenacin 10 mg tablet 10 mg PO QDAY 10/14/24 11/22/24 History tamsulosin 0.4 mg capsule 0.4 mg PO QHS 10/14/24 11/21/24 History acetaminophen 325 mg tablet (Pain 650 mg PO Q6H PRN pain 11/08/24 Unknown History Relief (acetaminophen)) Allergy/AdvReac Type Severity Reaction Status Date / Time No Known Allergies Allergy Verified 11/22/24 11:54 Surgical History History of facial surgery History of surgery on lower extremity Hx of cholecystectomy Social History housing: apartment current occupational status: unemployed Smoking Status: Never smoker Review of Systems (Anesthesia) ROS Narrative System reviewed and no additional complaints, except as documented.
--- NOTE | 2024-11-22 12:30 | COLBX_PTH ---
PATIENT: JAYCOB CRYSTAL LOC: [facility] U#:[id number] AGE/SX: 63/M ROOM: RE11/22/[address]: Dr. Juan Cazares DO : 1960 BED: DIS: 11/22/2024 SPEC #: [id number] RECD: 11/22/24 13:50 STATUS: PRASHANT REQ #: [id number] NINA: 11/22/24 12:[address]: Juan Cazares DEPT: SURGICAL PATHOLOGY RECD BY: Bello Kurtz ENTERED: 11/22/24 14:45 SP TYPE: COLON BX OTHR DR: Katelyn Kamara, SALES ENGINEER [employer] Tissues: A - Duodenum, NOS B - Gastric mucous membrane C - COLON BIOPSY D - COLON BIOPSY E - Rectum, NOS Procedures: Immunohistochemical Stains Surgery Specimen Level IV HEADER OPERATION: Colonoscopy, EGD with biopsy PRE-OP DIAGNOSIS: Anemia and screening colonoscopy TISSUE SUBMITTED: A- Duodenum biopsy, B- Gastric antrum biopsy, C- Distal polyp biopsy, D- Ileo-cecal valve biopsy, E- Rectal biopsy MICROSCOPIC DIAGNOSIS A. 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 * Negative for increased intraepithelial lymphocytes. B. Gastric antrum, biopsy: * Oxyntic and antral mucosa with chronic inflammation. * IHC negative for H. pylori organisms. C. Distal, polyp, biopsy: * Gastric mucosa with polypoid foveolar hyperplasia, suggestive of hyperplastic polyp. D. Ileo-cecal valve, biopsy: * Ileal and colonic mucosa with mild acute inflammation. E. Rectum, biopsy: * Focal active colitis - see note. Note: Focal mild acute inflammation is noted without features of chronicity. This is a nonspecific finding which may result from bowel prep artifact, mild infection, medication injury (eg: NSAIDs) and ischemia. Recommend correlation with clinical and endoscopic findings. MICROSCOPIC DESCRIPTION Slides are reviewed. All matched controls reacted appropriately. These tests were developed and their performance characteristics determined by [facility]. They may not have been cleared or approved by the U.S. Food and Drug Administration. The FDA has determined that such clearance or approval is not necessary. The above immunohistochemical markers and/or special stains have been reviewed by the Pathologist. GROSS DESCRIPTION A. Received in fixative is one container labeled with the patient's name and designated Duodenum biopsy. The specimen consists of two irregular fragments of schofield tissue, each measuring 0.4 cm. The specimen is totally submitted in one cassette. B. Received in fixative is one container labeled with the patient's name and designated Gastric antrum biopsy. The specimen consists of two irregular fragments of schofield tissue that measure 0.4 and 0.6 cm. The specimen is totally submitted in one cassette. C. Received in fixative is one container labeled with the patient's name and designated Distal polyp biopsy. The specimen consists of two irregular fragments of schofield tissue, each measuring 0.4 cm. The specimen is totally submitted in one cassette. D. Received in fixative is one container labeled with the patient's name and designated Ileo-cecal valve biopsy. The specimen consists of two irregular fragments of schofield tissue that measure 0.2 and 0.3 cm. The specimen is totally submitted in one cassette. E. Received in fixative is one container labeled with the patient's name and designated Rectal biopsy. The specimen consists of one irregular fragment of schofield tissue that measures 0.9 cm. The specimen is totally submitted in one cassette. MN 11/22/2024 CPT:04412g6,27247
[2024-11-22] MEDS: Lactated Ringers 500 ML IV (12:52)
--- NOTE | 2024-11-22 13:05 | PCM.POST.ANE ---
Anesthesia: Postop Eval I Current Vital Signs Temperature: 97 F Pulse Rate: 77 Blood Pressure: 96/68 Respiratory Rate: 14 Pulse Ox: 98 Oxygen Delivery Method: Room Air Assessment Airway patent: Yes Spontaneous unlabored respirations: Yes Mental status: Awake nausea: No Vomiting: No Anesthesia Complication: No Fluid Hydration Crystalloid volume administer (ml): 500 Total IV fluid infused: 500 Progress Note Anesthesia document: Postop Eval 1 completed: Yes
--- NOTE | 2024-11-22 13:25 | OP.PROVAT_ITS ---
11/22/2024 Katelyn Kamara Re : Upper GI endoscopy procedure for Cleveland Singer Isisr Asad This procedure was performed on Friday, November 22, 2024. My impressions and recommendations are as follows: Impressions : - Esophageal polyp(s) were found. Resected and retrieved. - Small hiatal hernia. - Erythematous mucosa in the gastric body. Biopsied. - Chronic duodenitis. Biopsied. Recommendations : - Discharge patient to home. - Resume previous diet. - Continue present medications. - Await pathology results. My findings are described in the full procedure note, which is enclosed. If I can be of further assistance, please feel free to contact me at . Sincerely, Juan Cazares, 11/22/2024 1:24:49 PM This report has been signed electronically.
--- NOTE | 2024-11-22 13:25 | OP.EGD_ITS ---
Patient Name: Cleveland Singer Procedure Date: 11/22/2024 12:49 PM Date of : 1960 Age: 63 Procedure: Upper GI endoscopy Indications: Epigastric abdominal pain, Abdominal pain in the left upper quadrant, Unexplained iron deficiency anemia, Dyspepsia Providers: Juan Cazares DO Medicines: Monitored Anesthesia Care Patient Profile: This is a 63 year old male. Refer to note in patient chart for documentation of history and physical. Patient has symptoms of acute left upper quadrant abdominal pain, acute dyspepsia and chronic nausea. Complications: No immediate complications. Procedure: Pre-Anesthesia Assessment: - Prior to the procedure, a History and Physical was performed, and patient medications and allergies were reviewed. The patient is competent. The risks and benefits of the procedure and the sedation options and risks were discussed with the patient. All questions were answered and informed consent was obtained. Patient identification and proposed procedure were verified by the physician in the pre-procedure area. Mental Status Examination: alert and oriented. Airway Examination: normal oropharyngeal airway and neck mobility. Respiratory Examination: clear to auscultation. CV Examination: normal. ASA Grade Assessment: II - A patient with mild systemic disease. After reviewing the risks and benefits, the patient was deemed in satisfactory condition to undergo the procedure. The anesthesia plan was to use monitored anesthesia care (MAC). Immediately prior to administration of medications, the patient was re-assessed for adequacy to receive sedatives. The heart rate, respiratory rate, oxygen saturations, blood pressure, adequacy of pulmonary ventilation, and response to care were monitored throughout the procedure. The physical status of the patient was re-assessed after the procedure. After obtaining informed consent, the endoscope was passed under direct vision. Throughout the procedure, the patient's blood pressure, pulse, and oxygen saturations were monitored continuously. The Colonoscope was introduced through the mouth, and advanced to the third part of the duodenum. Small bowel enteroscopy was deemed necessary. The upper GI endoscopy was accomplished without difficulty. The patient tolerated the procedure well. Scope In: 12:58:08 PM Scope Out: 1:03:24 PM Total Procedure Duration Time 0 hours 5 minutes 16 seconds Findings: A single 4 mm polyp with no bleeding was found 40 to 42 cm from the incisors. The polyp was removed with a cold biopsy forceps. Resection and retrieval were complete. Verification of patient identification for the specimen was done. Estimated blood loss was minimal. A small hiatal hernia was present. Patchy mildly erythematous mucosa without bleeding was found in the gastric body. Biopsies were taken with a cold forceps for histology. Verification of patient identification for the specimen was done. Biopsies were taken with a cold forceps for Helicobacter pylori testing. Verification of patient identification for the specimen was done. Estimated blood loss was minimal. Patchy mild inflammation characterized by congestion (edema) was found in the entire duodenum. Biopsies were taken with a cold forceps for histology. Verification of patient identification for the specimen was done. Estimated blood loss was minimal. Impression: - Esophageal polyp(s) were found. Resected and retrieved. - Small hiatal hernia. - Erythematous mucosa in the gastric body. Biopsied. - Chronic duodenitis. Biopsied. Recommendation: - Discharge patient to home. - Resume previous diet. - Continue present medications. - Await pathology results. Procedure Code(s): --- Professional --- 19484, Small intestinal endoscopy, enteroscopy beyond second portion of duodenum, not including ileum; with biopsy, single or multiple CPT copyright 2021 [employer]. All rights reserved. The codes documented in this report are preliminary and upon senior hadoop developer review may be revised to meet current compliance requirements. Juan Cazares DO 11/22/2024 1:24:49 PM This report has been signed electronically. Number of Addenda: 0 Note Initiated On: 11/22/2024 12:49 PM
--- NOTE | 2024-11-22 13:28 | OP.PROVAT_ITS ---
11/22/2024 Katelyn Kamara Re : Colonoscopy procedure for Cleveland Singer Isisr Asad This procedure was performed on Friday, November 22, 2024. My impressions and recommendations are as follows: Impressions : - Diverticulosis in the sigmoid colon. - Patchy mild inflammation was found in the rectum and in the cecum secondary to colitis. Biopsied. - The examined portion of the ileum was normal. Recommendations : - Discharge patient to home. - Resume previous diet. - Continue present medications. - Await pathology results. - Repeat colonoscopy in 5 years for surveillance. My findings are described in the full procedure note, which is enclosed. If I can be of further assistance, please feel free to contact me at . Sincerely, Juan Cazares, 11/22/2024 1:27:34 PM This report has been signed electronically.
--- NOTE | 2024-11-22 13:28 | OP.COLON_ITS ---
Patient Name: Cleveland Singer Procedure Date: 11/22/2024 1:03 PM Date of : 1960 Age: 63 Procedure: Colonoscopy Indications: Screening for colorectal malignant neoplasm Providers: Juan Cazares DO Medicines: Monitored Anesthesia Care Patient Profile: This is a 63 year old male. Refer to note in patient chart for documentation of history and physical. Patient has symptoms of acute left upper quadrant abdominal pain, acute dyspepsia and chronic nausea. Last Colonoscopy: several years ago. Complications: No immediate complications. Procedure: Pre-Anesthesia Assessment: - Prior to the procedure, a History and Physical was performed, and patient medications and allergies were reviewed. The patient is competent. The risks and benefits of the procedure and the sedation options and risks were discussed with the patient. All questions were answered and informed consent was obtained. Patient identification and proposed procedure were verified by the physician in the pre-procedure area. Mental Status Examination: alert and oriented. Airway Examination: normal oropharyngeal airway and neck mobility. Respiratory Examination: clear to auscultation. CV Examination: normal. ASA Grade Assessment: II - A patient with mild systemic disease. After reviewing the risks and benefits, the patient was deemed in satisfactory condition to undergo the procedure. The anesthesia plan was to use monitored anesthesia care (MAC). Immediately prior to administration of medications, the patient was re-assessed for adequacy to receive sedatives. The heart rate, respiratory rate, oxygen saturations, blood pressure, adequacy of pulmonary ventilation, and response to care were monitored throughout the procedure. The physical status of the patient was re-assessed after the procedure. After I obtained informed consent, the scope was passed under direct vision. Throughout the procedure, the patient's blood pressure, pulse, and oxygen saturations were monitored continuously. The Colonoscope was introduced through the anus and advanced to the terminal ileum. The colonoscopy was performed without difficulty. The patient tolerated the procedure well. The quality of the bowel preparation was adequate. The ileocecal valve, appendiceal orifice, and rectum were photographed. Scope In: 1:04:55 PM Scope Withdrawal Time 0 hours 6 minutes 50 seconds Scope Out: 1:15:32 PM Total Procedure Duration Time 0 hours 10 minutes 37 seconds Findings: The perianal and digital rectal examinations were normal. A few small-mouthed diverticula were found in the sigmoid colon. Patchy mild inflammation characterized by congestion (edema) and erythema was found in the rectum and in the cecum. Biopsies were taken with a cold forceps for histology. Verification of patient identification for the specimen was done. Estimated blood loss was minimal. The terminal ileum appeared normal. Impression: - Diverticulosis in the sigmoid colon. - Patchy mild inflammation was found in the rectum and in the cecum secondary to colitis. Biopsied. - The examined portion of the ileum was normal. Recommendation: - Discharge patient to home. - Resume previous diet. - Continue present medications. - Await pathology results. - Repeat colonoscopy in 5 years for surveillance. Procedure Code(s): --- Professional --- 14243, Colonoscopy, flexible; with biopsy, single or multiple CPT copyright 2021 [employer]. All rights reserved. The codes documented in this report are preliminary and upon city planning teacher review may be revised to meet current compliance requirements. Juan Cazares DO 11/22/2024 1:27:34 PM This report has been signed electronically. Number of Addenda: 0 Note Initiated On: 11/22/2024 1:03 PM
--- NOTE | 2024-11-22 14:10 | SUR.PHASEII ---
report called to Darnell Snyder RN
--- NOTE | 2024-11-22 15:08 | POSTOPAN2_ITS ---
Anesthesia Postop Eval I Sum Postop Eval Completion status Anesthesia document: Postop Eval 1 completed: Yes Anesthesia Postop Eval I Summary Anesthesia Postop Eval I Summary: Anesthesia Postop Eval I: Assessment Summary Airway patent Yes 11/22/24 13:06 PRINCIPAL CONSULTANT.HBARR Spontaneous unlabored Yes 11/22/24 13:06 PRINCIPAL CONSULTANT.HBARR respirations Mental status Awake 11/22/24 13:06 PRINCIPAL CONSULTANT.HBARR nausea No 11/22/24 13:06 PRINCIPAL CONSULTANT.HBARR Vomiting No 11/22/24 13:06 PRINCIPAL CONSULTANT.HBARR Anesthesia Postop Eval I: Fluid Summary Crystalloid volume administer 500 11/22/24 13:06 PRINCIPAL CONSULTANT.HBARR (ml) Colloids volume administered ( ml) Blood Product volume administered (ml) Total IV fluid infused 500 11/22/24 13:06 PRINCIPAL CONSULTANT.HBARR Anesthesia Postop Eval I: Summary Notes Anesthesia Complication No 11/22/24 13:06 PRINCIPAL CONSULTANT.HBARR Anesthesia Complication Comment: Post-operative progress note Anesthesia: Postop Eval II Evaluation Mental status: Awake Pain Level: 1 nausea: No Vomiting: No Complications Anesthesia Complication: No
--- NOTE | 2024-11-22 15:08 | PCM.POSTANE2 ---
Anesthesia Postop Eval I Sum Postop Eval Completion status Anesthesia document: Postop Eval 1 completed: Yes Anesthesia Postop Eval I Summary Anesthesia Postop Eval I Summary: Anesthesia Postop Eval I: Assessment Summary Airway patent Yes 11/22/24 13:06 DIRECTOR OF CONVENTION SERVICES.HBARR Spontaneous unlabored Yes 11/22/24 13:06 DIRECTOR OF CONVENTION SERVICES.HBARR respirations Mental status Awake 11/22/24 13:06 DIRECTOR OF CONVENTION SERVICES.HBARR nausea No 11/22/24 13:06 DIRECTOR OF CONVENTION SERVICES.HBARR Vomiting No 11/22/24 13:06 DIRECTOR OF CONVENTION SERVICES.HBARR Anesthesia Postop Eval I: Fluid Summary Crystalloid volume administer 500 11/22/24 13:06 DIRECTOR OF CONVENTION SERVICES.HBARR (ml) Colloids volume administered ( ml) Blood Product volume administered (ml) Total IV fluid infused 500 11/22/24 13:06 DIRECTOR OF CONVENTION SERVICES.HBARR Anesthesia Postop Eval I: Summary Notes Anesthesia Complication No 11/22/24 13:06 DIRECTOR OF CONVENTION SERVICES.HBARR Anesthesia Complication Comment: Post-operative progress note Anesthesia: Postop Eval II Evaluation Mental status: Awake Pain Level: 1 nausea: No Vomiting: No Complications Anesthesia Complication: No
== END 2024-11-22 14:33 | disposition home or self-care (01) ==
LOC: EN 11:25 → AC 11:27
PROVIDERS: PCP Nurse Practitioner Adult Health; Referring Provider Nurse Practitioner Adult Health; Visit Provider Internal Medicine Gastroenterology
PROC: 0DJD8ZZ Inspection of Lower Intestinal Tract, Via Natural or Artificial Opening Endoscopic (ICD-10-PCS; CPT 45378; principal; 2024-11-22 12:25)
DX: Z12.11 Encounter for screening for malignant neoplasm of colon (principal); K52.9 Noninfective gastroenteritis and colitis, unspecified; K21.9 Gastro-esophageal reflux disease without esophagitis; K57.30 Diverticulosis of large intestine without perforation or abscess without bleeding; K22.81 Esophageal polyp; K44.9 Diaphragmatic hernia without obstruction or gangrene; K29.80 Duodenitis without bleeding; Z80.0 Family history of malignant neoplasm of digestive organs; Z79.899 Other long term (current) drug therapy; Z90.49 Acquired absence of other specified parts of digestive tract; F41.9 Anxiety disorder, unspecified; F32.A Depression, unspecified; R10.13 Epigastric pain; R10.12 Left upper quadrant pain; D50.9 Iron deficiency anemia, unspecified; K22.89 Other specified disease of esophagus; K31.A19 Gastric intestinal metaplasia without dysplasia, unspecified site; K29.50 Unspecified chronic gastritis without bleeding; K63.89 Other specified diseases of intestine
CPT/HCPCS: 44361; 45380; 88305; 88342

== ENCOUNTER 2024-12-18 10:24 | Emergency (ER) | payer MEDICARE, MEDICAID, SELFPAY ==
[2024-12-18 10:25] VITALS: BP 118/76; PULSE 80; RESP 18; TEMP 36.6; O2SAT 100; BMI 21.8
[2024-12-18 11:35] VITALS: PULSE 72; RESP 13; O2SAT 100
[2024-12-18 11:39] VITALS: BP 118/76; PULSE 72; RESP 13; TEMP 36.6; O2SAT 100
== END 2024-12-18 11:44 | disposition home or self-care (01) ==
PROVIDERS: Emergency Provider Emergency Medicine; PCP Nurse Practitioner Adult Health; Visit Provider Emergency Medicine
DX: R55 Syncope and collapse (principal); R33.9 Retention of urine, unspecified; K21.9 Gastro-esophageal reflux disease without esophagitis; F41.9 Anxiety disorder, unspecified; F32.9 Major depressive disorder, single episode, unspecified; F84.0 Autistic disorder; K52.9 Noninfective gastroenteritis and colitis, unspecified; Z79.899 Other long term (current) drug therapy
CPT/HCPCS: 93005; 99284

== ENCOUNTER 2025-01-22 12:32 | Emergency (ER) | payer MEDICARE, MEDICAID, SELFPAY ==
[2025-01-22 12:34] VITALS: BP 112/75; PULSE 98; RESP 18; TEMP 36.9; O2SAT 98; BMI 20.8
--- NOTE | 2025-01-22 12:50 | EKG12_ITS ---
Test Reason : dizzy Blood Pressure : */* mmHG Vent. Rate : 83 BPM Atrial Rate : 83 BPM P-R Int : 152 ms QRS Dur : 88 ms QT Int : 380 ms P-R-T Axes : 78 83 74 degrees QTcB Int : 446 ms Normal sinus rhythm Normal ECG Confirmed by MT KNAPP ([id number]), metropolitan editor ARABELLA MITCHELL ([id number]) on 01/27/2025 6:31:01 AM Referred By: Confirmed By: MT KNAPP
[2025-01-22] MEDS: 0.9% Normal Saline (1000mL) 1,000 ML 1000 ML IV (12:57)
[2025-01-22 12:58] LABS: Hematocrit 31.5 % (40-54); Hemoglobin 10.5 g/dL (13.0-16.5); Immature Granulocytes Count 0.080 X10^3/uL (0.0-0.0); Mean Corp Hgb Conc 33.3 g/dL (32-36); Mean Corpuscular Volume 95.7 fL (80-94); Mean Platelet Vol. 11.3 fl (6.2-12.0); NRBC Flagged by Analyzer 0 % (0-5); POSITIVE DIFFERENTIAL YES; Platelet Count 306 K/mm3 (150-450); RBC Distribution Width CV 12.4 % (11.6-14.6); RBC Distribution Width SD 43.1 fl (35.1-43.9); Red Blood Count 3.29 M/mm3 (4.6-6.2); White Blood Count 10.0 K/mm3 (4.4-11.0)
--- NOTE | 2025-01-22 13:02 | EDS_ITS ---
HPI History of Present Illness Chief Complaint: Dizziness Informant: patient and EMS Narrative Narrative: Patient presenting with lightheadedness from [facility] via EMS. Patient states that he feels that he is dehydrated. He states that he self caths noticed nothing different with the urine this morning. Prior to arrival he got up felt very lightheaded and fell to the ground. He denies any injury in the fall to the ground. He states he did not lose consciousness. He states he did not have any room spinning sensation. No nausea vomiting. He denies any pain. He did not have a bowel movement today. He states he feels dehydrated because they do not serve much liquid with his lunch. He does have a water bottle that he drinks from throughout the day in his room. He states he has not had any new medications or dose changes. No reported fevers. He denies any arm or leg symptoms. No changes in speech or vision. He denies any headache. He denies neck or back pain. No palpitations. [facility] Medical History Loss of consciousness History of echocardiogram Cardiology follow-up encounter Lives in assisted living facility Bladder disease Autism Anemia Suicide attempt Acute insomnia GERD (gastroesophageal reflux disease) Anxiety Depression Home Medications ?Medication ?Instructions ?Recorded ?Last Taken ?Type aripiprazole 5 mg tablet 7.5 mg PO DAILY [facility] 02/01/24 01/22/25 History bupropion HCl 150 mg 24 hr tablet, 150 mg PO DAILY [facility] 02/01/24 01/22/25 History extended release meloxicam 7.5 mg tablet 7.5 mg PO DAILY PRN pain 07/2001/19/25 History pantoprazole 40 mg tablet,delayed 40 mg PO DAILY reflu x 02/01/24 01/22/25 History release mirtazapine 7.5 mg tablet 7.5 mg PO QHS 10/14/2401/21 History ondansetron 4 mg disintegrating 4 mg PO Q4H PRN nausea and vomiting 10/14/24 Unk nown History tablet solifenacin 10 mg tablet 10 mg PO QDAY 10/14/2401/22 History tamsulosin 0.4 mg capsule 0.4 mg PO QHS 10/14/2401/21 History acetaminophen 325 mg tablet (Pain 650 mg PO Q6H PRN pa in 11/08/24 12/27/24 History Relief (acetaminophen)) aluminum-mag hydroxide-simethicone 30 ml PO TID PRN in digestion 01/22/25 Unknown History 200 mg-200 mg-20 mg/5 mL oral susp (Advanced Antacid-Antigas) bisacodyl 10 mg rectal suppository 10 mg DE PRN Unknown History guaifenesin 400 mg tablet (Chest 400 mg PO TID PRN con gestion AND 01/22/25 Unknown History Congestion Relief) COUGH lidocaine 4 % topical patch 1 patch topical Q12H 01/2201/22/25 History magnesium hydroxide 400 mg/5 mL 30 ml PO DAILY PRN con stipation 01/22/25 Unknown History oral suspension (Gentle Laxative (magnesium hydroxide)) neomycin-bacitracn Zn-polymyx 3.5 1 applic topical PRN 01/22/25 Unknown History mg-400 unit-5,000 unit/gram top oint (Antibiotic(grirj-ojewr-hyxkp)) polyethylene glycol 3350 17 17 g PO DAILY PRN constipa tion 01/22/25 Unknown History gram/dose oral powder (ClearLax) trazodone 100 mg tablet 100 mg PO QHS 01/22/2501/21 History Allergy/AdvReac Type Severity Reaction Status Date / Time No Known Allergies Allergy Verified 01/22/25 12:37 Surgical History History of facial surgery History of surgery on lower extremity Hx of cholecystectomy Social History housing: apartment current occupational status: unemployed Smoking Status: Never smoker ROS ROS ED Constitutional Constitutional ED: Denies chills, fever(s) or weight loss Eyes Eyes: Denies change in vision or diplopia ENT ENT ED: Denies ear pain, rhinorrhea or sore throat Cardiovascular Cardiovascular: Reports other Details: Lightheadedness ; Denies chest pain, orthopnea, palpitations or racing heartbeat Respiratory/Chest Respiratory/Chest: Denies cough, dyspnea or orthopnea Gastrointestinal Gastrointestinal: Denies abdominal pain, diarrhea, nausea or vomiting Genitourinary Genitourinary ED: Denies dysuria, hematuria or urinary frequency Musculoskeletal Musculoskeletal: Denies arthralgias or myalgias Integumentary Denies abscess or rash Neurologic Neurologic: Denies headache(s), paresthesias or weakness Psychiatric Psychiatric: Denies anxiety, depression, suicidal ideation or suicidal thoughts Endocrine Endocrinology: Denies polydipsia, polyphagia or polyuria Allergic/Immunologic Allergic/Immunologic ED: Denies mouth swelling, tongue swelling or urticaria EXAM Physical Exam Const Vital Signs: 01/22/25 12:34 01/22/25 13:26 01/22/25 13:30 Temperature 98.4 F Temperature Source Oral Pulse Rate 98 92 Pulse Rate [Lying] 85 Pulse Rate [Sitting (for 1 minute prior to obtaining)] 89 Pulse Rate [Standing (for 1 minute prior to obtaining)] 100 Respiratory Rate 18 16 Blood Pressure 112/75 114/71 Blood Pressure [Lying] 113/79 Blood Pressure [Sitting (for 1 minute prior to obtaining)] 114/71 Blood Pressure [Standing (for 1 minute prior to obtaining)] 110/69 Blood Pressure Mean 87 84 Blood Pressure Mean [Lying] 90 Blood Pressure Mean [Sitting (for 1 minute prior to obtaining)] 85 Blood Pressure Mean [Standing (for 1 minute prior to obtaining)] 82 Pulse Ox 98 100 Oxygen Delivery Method Room Air 01/22/25 14:01 Temperature Temperature Source Pulse Rate 84 Pulse Rate [Lying] Pulse Rate [Sitting (for 1 minute prior to obtaining)] Pulse Rate [Standing (for 1 minute prior to obtaining)] Respiratory Rate 22 H Blood Pressure 123/79 H Blood Pressure [Lying] Blood Pressure [Sitting (for 1 minute prior to obtaining)] Blood Pressure [Standing (for 1 minute prior to obtaining)] Blood Pressure Mean 93 Blood Pressure Mean [Lying] Blood Pressure Mean [Sitting (for 1 minute prior to obtaining)] Blood Pressure Mean [Standing (for 1 minute prior to obtaining)] Pulse Ox 100 Oxygen Delivery Method Room Air Positive well nourished and well developed General Appearance ED: well developed and NAD HEENT Reports normocephalic, head/scalp atraumatic and moist mucous membranes Eyes PERRL and EOMs intact bilaterally Neck no lymphadenopathy, supple and no JVD Resp normal respiratory effort and clear to auscultation bilaterally Cardio regular rate, regular rhythm and no murmurs GI normal to inspection, nondistended, normoactive bowel sounds and non-tender Palpation: soft Back/Spine no CVA tenderness and normal ROM Extremity normal to inspection General Extremety ED: Negative for edema General Extremity: Negative for edema Neuro oriented x3 and CN's II-XII intact bilaterally Sensorium / Orientation: alert Motor Exam: strength 5/5 throughout Psych mental status grossly normal Psych Narrative: Blunted affect Mood & Affect: Negative for depressed or tearful Skin no rashes or lesions noted and no wounds MDM MDM MDM Narrative Medical decision making narrative: Differential diagnosis includes cardiogenic send near syncope dehydration acute kidney injury electrolyte abnormalities UTI Urinalysis no overt infection specific gravity of 1.005. Creatinine 2.38 BUN of 27. This is a change off of his baseline. White count of 10 hemoglobin 10.5 platelet count is 306. EKG is a normal sinus rhythm at a rate of 83. His orthostatics are negative. The acute kidney injury would at least in some part suggestive degree of dehydration but the specific gravity is 1.005 which would go against that. The last creatinine I have to compare to is from about 1 year ago. He received a liter of IV fluids. He would like to be discharged. I do not think that is unreasonable. I did recommend that he drink plenty of fluids and have his creatinine rechecked by his PCP. History & Record Review Discussion w/independent historian: Patient Additional record(s) reviewed:: Prior labs Lab Data Attestation: I reviewed the patient's lab results. Labs: Laboratory Results - last 24 hr 01/22/25 01/22/25 12:39 13:21 WBC 10.0 RBC 3.29 L Hgb 10.5 L Hct 31.5 L MCV 95.7 H MCH 31.9 MCHC 33.3 RDW Std Deviation 43.1 RDW Coeff of Lola 12.4 Plt Count 306 MPV 11.3 Immature Gran % (Auto) 0.800 Neut % (Auto) 85.6 H Lymph % (Auto) 4.4 L [place] % (Auto) 8.6 Eos % (Auto) 0.3 Baso % (Auto) 0.3 Absolute Neuts (auto) 8.5 H Absolute Lymphs (auto) 0.44 L Nucleated RBC % 0 Sodium 137 Potassium 4.8 Chloride 100 Carbon Dioxide 25.5 Anion Gap 12 BUN 27 H Creatinine 2.38 H Estim Creat Clear Calc 28.50 L Est GFR (MDRD) Non-Af 29 L BUN/Creatinine Ratio 11.2 Glucose 105 H Calcium 9.3 Total Bilirubin 0.43 AST 32 ALT 61 H Alkaline Phosphatase 163 H Total Protein 7.3 Albumin 3.8 Globulin 3.5 Albumin/Globulin Ratio 1.1 Urine Color Yellow Urine Clarity Clear Urine pH 6.5 Ur Specific [place] 1.005 Urine Protein 15 H Urine Glucose (UA) Normal Urine Ketones Negative Urine Occult Blood 10 H Urine Nitrite Negative Urine Bilirubin Negative Urine Urobilinogen Normal Ur Leukocyte Esterase 500 H Urine RBC 0 SEEN Urine WBC 10-25 SEEN Ur Squamous Epith Cells 0 SEEN Urine Bacteria 0 SEEN Urine Mucus 0 SEEN EKG Initial EKG: Attestation: I personally reviewed and interpreted this EKG as follows: Comments: Normal sinus rhythm ventricular rate of 83 bpm Discharge Plan Triage Chief Complaint: Dizziness ED Provider: Valentin Briceno Dx/Rx/DC Orders Clinical Impression: Dehydration, Near syncope, DAMARIS (acute kidney injury) Instructions: ED Dehydration (Adult) Prescriptions: No Action mirtazapine 7.5 mg tablet 7.5 mg PO QHS ondansetron 4 mg tablet,disintegrating 4 mg PO Q4H PRN (Reason: nausea and vomiting) solifenacin 10 mg tablet 10 mg PO QDAY tamsulosin 0.4 mg capsule 0.4 mg PO QHS meloxicam 7.5 mg tablet 7.5 mg PO DAILY PRN (Reason: pain) pantoprazole 40 mg tablet,delayed release (DR/EC) 40 mg PO DAILY aripiprazole 5 mg tablet 7.5 mg PO DAILY bupropion HCl 150 mg tablet extended release 24 hr 150 mg PO DAILY trazodone 100 mg tablet 100 mg PO QHS alum-mag hydroxide-simeth [Advanced Antacid-Antigas] 200-200-20 mg/5 mL suspension 30 ml PO TID PRN (Reason: indigestion) bisacodyl 10 mg suppository 10 mg DE PRN Patient Comments: IF NO RELIEF FROM MOM OR MIRALAX guaifenesin [Chest Congestion Relief] 400 mg tablet 400 mg PO TID PRN (Reason: congestion AND COUGH) lidocaine 4 % adhesive patch,medicated 1 patch topical Q12H Patient Comments: OFF 12H magnesium hydroxide [Gentle Laxative (mag hydrox)] 400 mg/5 mL suspension 30 ml PO DAILY PRN (Reason: constipation) Patient Comments: AFTER 3 DAYS WITH NO BM polyethylene glycol 3350 [ClearLax] 17 gram/dose powder 17 g PO DAILY PRN (Reason: constipation) Antibiotic (txslp-guqin-ofxcl) 3.5mg-400 unit- 5,000 unit/gram ointment 1 applic topical PRN acetaminophen [Pain Relief (acetaminophen)] 325 mg tablet 650 mg PO Q6H PRN (Reason: pain) Primary Care Provider: Katelyn Kamara VIDEO CONTROL ENGINEER Referrals: Katelyn Kamara VIDEO CONTROL ENGINEER, VIDEO CONTROL ENGINEER-C [Primary Care Provider, Medical] - 3-5 Days Activity Restrictions/Additional Instructions: I would encourage you to drink plenty of fluids. I would recommend that you have your kidney function rechecked in the next week. Print Language: Togolese Disposition Disposition: Home, Self Care
[2025-01-22 13:18] LABS: AST(SGOT) 32 U/L (<=37); Alanine Aminotransfer ALT/SGPT 61 U/L (<=46); Albumin, Serum 3.8 g/dL (3.4-4.8); Alkaline Phosphatase 163 U/L (40-129); Anion Gap 12 (5-15); BUN 27 mg/dL (4-19); BUN/Creat Ratio 11.2 RATIO (10-20); Calcium,Total 9.3 mg/dL (7.6-11.0); Carbon Dioxide 25.5 mmol/L (21.0-32.0); Chloride 100 mmol/L (98-108); Estimated Creatinine Clearance 28.50 ml/min (50-250); Globulin 3.5 g/dL (2.2-4.2); Glucose 105 mg/dL (70-99); Potassium 4.8 mmol/L (3.3-5.1)
[2025-01-22 13:25] LABS: Mucous, Urine 0 SEEN /hpf (<or=2+); Red Blood Cells-Urine 0 SEEN /hpf (0-5); Squamous Epithelial Cells - UA 0 SEEN /hpf (0-5)
[2025-01-22 13:26] VITALS: BP 110/69; BP 113/79; BP 114/71; PULSE 100; PULSE 85; PULSE 89
[2025-01-22 13:27] LABS: Color, Urine Yellow (Yellow); Glucose, Dipstick Normal (Normal); Ketone-Dipstick Negative (Negative); Leukocyte Esterase-Dipstick 500 /ul (Negative); Nitrite-Dipstick Negative (Negative); Occult Blood-Urine 10 /ul (Negative); Protein-Dipstick 15 mg/dl (Negative); Specific Gravity, Urine 1.005 (1.002-1.030); Urine Bilirubin Dipstick Negative (Negative)
[2025-01-22 13:30] VITALS: BP 114/71; PULSE 92; RESP 16; O2SAT 100
[2025-01-22 14:01] VITALS: BP 123/79; PULSE 84; RESP 22; O2SAT 100
[2025-01-22 15:00] VITALS: BP 126/78; PULSE 92; RESP 16; TEMP 37.4; O2SAT 100
== END 2025-01-22 15:24 | disposition home or self-care (01) ==
PROVIDERS: Emergency Provider Emergency Medicine; PCP Nurse Practitioner Adult Health; Visit Provider Emergency Medicine
DX: E86.0 Dehydration (principal); R55 Syncope and collapse; N17.9 Acute kidney failure, unspecified; W19.XXXA Unspecified fall, initial encounter; F84.0 Autistic disorder; F32.A Depression, unspecified; F41.9 Anxiety disorder, unspecified; K21.9 Gastro-esophageal reflux disease without esophagitis; N32.9 Bladder disorder, unspecified; Z79.899 Other long term (current) drug therapy
CPT/HCPCS: 99285; 80053; 81001; 85025; 93005

== ENCOUNTER 2025-01-23 00:31 | Inpatient (IN) | payer MEDICARE, MEDICAID, SELFPAY ==
[2025-01-23] VITALS (9 sets, daily range): BP systolic 108–139; BP diastolic 65–83; PULSE 93–116; RESP 14–21; TEMP 36.8–39.1; O2SAT 95–98; BMI 20.7; BMI 20.4
--- NOTE | 2025-01-23 00:39 | EKG12_ITS ---
Test Reason : WEAKNESS Blood Pressure : */* mmHG Vent. Rate : 112 BPM Atrial Rate : 234 BPM P-R Int : * ms QRS Dur : 78 ms QT Int : 360 ms P-R-T Axes : 107 95 91 degrees QTcB Int : 491 ms Suspect arm lead reversal, interpretation assumes no reversal Rightward axis Abnormal ECG Sinus tachycardia with artifact Confirmed by MT KNAPP ([id number]), technical editor ARABELLA MITCHELL ([id number]) on 01/27/2025 6:13:21 AM Referred By: Confirmed By: MT KNAPP
--- NOTE | 2025-01-23 00:43 | EDS_ITS ---
HPI History of Present Illness Chief Complaint: Weakness Informant: patient and EMS Narrative Narrative: Patient is a 64-year-old male presenting with concerns of dehydration and a recent fall. States he was in bed and leaned over to charge his phone and accidentally fell out of bed without injury. Presenting by EMS from assisted living. - Unable to stand up independently after the fall, attributing this to generalized weakness. - Patient was evaluated earlier today (per EMS; actually, here yesterday) and was advised to increase fluid intake due to suspected dehydration. - Reports not consuming adequate fluids today. - Denies known head injury during the fall. Denies chest pain, dyspnea, headache, or nausea prior to the fall. - Denies any pain in the arms, legs, abdomen, neck, or face. - Apparently self caths every day due to trouble emptying his bladder but has noticed no changes in his urine. [facility] Medical History Loss of consciousness History of echocardiogram Cardiology follow-up encounter Lives in assisted living facility Bladder disease Autism Anemia Suicide attempt Acute insomnia GERD (gastroesophageal reflux disease) Anxiety Depression Home Medications ?Medication ?Instructions ?Recorded ?Last Taken ?Type aripiprazole 5 mg tablet 7.5 mg PO DAILY mental [facility]alt [facility] 02/01/24 01/22/25 History bupropion HCl 150 mg 24 hr tablet, 150 mg PO DAILY [facility] 02/01/24 01/22/25 History extended release meloxicam 7.5 mg tablet 7.5 mg PO DAILY PRN pain 07/2001/19/25 History pantoprazole 40 mg tablet,delayed 40 mg PO DAILY reflu x 02/01/24 01/22/25 History release mirtazapine 7.5 mg tablet 7.5 mg PO QHS 10/14/2401/21 History ondansetron 4 mg disintegrating 4 mg PO Q4H PRN nausea and vomiting 10/14/24 Unknown History tablet solifenacin 10 mg tablet 10 mg PO QDAY 10/14/2401/22 History tamsulosin 0.4 mg capsule 0.4 mg PO QHS 10/14/2401/21 History acetaminophen 325 mg tablet (Pain 650 mg PO Q6H PRN pa in 11/08/24 12/27/24 History Relief (acetaminophen)) aluminum-mag hydroxide-simethicone 30 ml PO TID PRN in digestion 01/22/25 Unknown History 200 mg-200 mg-20 mg/5 mL oral susp (Advanced Antacid-Antigas) bisacodyl 10 mg rectal suppository 10 mg [place] PRN Unknown History guaifenesin 400 mg tablet (Chest 400 mg PO TID PRN con gestion AND 01/22/25 Unknown History Congestion Relief) COUGH lidocaine 4 % topical patch 1 patch topical Q12H 01/2201/22/25 History magnesium hydroxide 400 mg/5 mL 30 ml PO DAILY PRN con stipation 01/22/25 Unknown History oral suspension (Gentle Laxative (magnesium hydroxide)) neomycin-bacitracn Zn-polymyx 3.5 1 applic topical PRN 01/22/25 Unknown History mg-400 unit-5,000 unit/gram top oint (Antibiotic(alzqw-alvih-yrruy)) polyethylene glycol 3350 17 17 g PO DAILY PRN constipa tion 01/22/25 Unknown History gram/dose oral powder (ClearLax) trazodone 100 mg tablet 100 mg PO QHS 01/22/2501/21 History Allergy/AdvReac Type Severity Reaction Status Date / Time No Known Allergies Allergy Verified 01/23/25 00:38 Surgical History History of facial surgery History of surgery on lower extremity Hx of cholecystectomy Social History housing: apartment current occupational status: unemployed Smoking Status: Never smoker ROS ROS ED Constitutional Constitutional ED: Reports weakness; Denies body ache(s) or chills Eyes Eyes: Denies change in vision or diplopia ENT ENT ED: Denies rhinorrhea or sore throat Cardiovascular Cardiovascular: Denies chest pain or palpitations Respiratory/Chest Respiratory/Chest: Denies cough or dyspnea Gastrointestinal Gastrointestinal: Denies abdominal pain, diarrhea, nausea or vomiting Genitourinary Genitourinary ED: Denies hematuria Musculoskeletal Musculoskeletal: Denies back pain or neck pain Integumentary Denies abscess or rash Neurologic Neurologic: Denies headache(s), paresthesias or weakness Psychiatric Psychiatric: Denies suicidal thoughts EXAM Physical Exam Const Vital Signs: 01/23/25 00:32 01/23/25 01:43 01/23/25 01:45 Temperature 102.3 F H 102.2 F H Temperature Source Oral Oral Pulse Rate 116 H 97 Respiratory Rate 18 18 Respiratory Effort Normal Non-Labored Respiratory Pattern Normal Blood Pressure 139/65 H 108/66 Blood Pressure Mean 89 80 Pulse Ox 98 95 Oxygen Delivery Method Room Air Room Air 01/23/25 02:00 01/23/25 02:30 Temperature 98.8 F 98.8 F Temperature Source Oral Pulse Rate 94 Respiratory Rate 21 H Respiratory Effort Respiratory Pattern Blood Pressure 109/66 Blood Pressure Mean 80 Pulse Ox 95 Oxygen Delivery Method Positive well nourished and well developed General Appearance ED: well developed and NAD HEENT Reports moist mucous membranes HEENT Narrative: No Dominique sign, no raccoon eyes, no CSF otorhinorrhea, no hemotympanum. No facial tenderness. No signs of trauma. normocephalic and atraumatic Eyes PERRL and EOMs intact bilaterally Neck full ROM and supple General: Negative for tenderness Chest Wall inspection of chest normal and palpation of chest normal Resp normal respiratory effort and clear to auscultation bilaterally Cardio regular rate, regular rhythm and no murmurs Rate: tachycardic GI non-tender and non-distended Auscultation: normoactive bowel sounds Palpation: soft Back/Spine no CVA tenderness General Back: other FROM Extremity normal to inspection General Extremety ED: Negative for edema, pulses abnormal or tenderness General Extremity: Negative for edema or pulses abnormal Neuro oriented x3, CN's II-XII intact bilaterally and no sensory deficits noted Sensorium / Orientation: awake and alert Motor Exam: general weakness Psych Psych Narrative: Flat affect Skin no rashes or lesions noted and no wounds MDM MDM MDM Narrative Medical decision making narrative: Assessment: The patient is a 64-year-old male presenting after a witnessed fall from bed with concerns for dehydration and generalized weakness. He is febrile to 102.2 ?F and mildly tachycardic; examination is non-toxic without focal injury. Review of yesterday?s ED record shows a diagnosis of DAMARIS and a urinalysis consistent with infection that was not treated. Today?s labs reveal WBC 11.7 K/?L (up from 10.0 K/?L yesterday), slight left shift without bands, lactic acid 1.5 mmol/L, and mildly worsening creatinine, supporting ongoing DAMARIS and suspected complicated UTI. Given straight-catheter dependence, the urinary infection is considered complicated and warrants broad empiric coverage; fall appears mechanical with no concerning sequelae. Admission is indicated for IV antibiotics, fluid management, and functional support. Plan: - Administered IV cefepime empirically for suspected complicated UTI. - Roche catheter placed for infection source control - Admission for ongoing IV antibiotics, DAMARIS management, and physical assistance due to weakness in assisted-living resident. - No emergent imaging pursued for fall given absent pain and normal exam. Diagnostics: - Urinalysis from prior ED visit reviewed today: leukocyte esterase positive, nitrites negative, pyuria consistent with acute urinary infection. UA to be repeated so culture can be also sent with fresh specimen, followed by empiric cefepime. - Labs today: WBC 11.7 K/?L with slight left shift; lactic acid 1.5 mmol/L; creatinine slightly increased from yesterday, consistent with worsening DAMARIS. Urinalysis now showing less leukocyte esterase, no pyuria, and 1+ bacteria. Continuing to treat empirically. Currently not meeting criteria for sepsis. Chest x-ray, COVID/flu not thought to be indicated, get a normal chest x-ray a couple days ago and he has no respiratory symptoms. Reevaluation: After IV fluid bolus and Tylenol, tachycardia resolved, blood pressure still stable, patient clinically doing well. Roche placed urine flowing, after 1 hour total of about 750 cc. Will discuss with hospitalist. History & Record Review Additional record(s) reviewed:: Prior ED visit and Prior labs Lab Data Attestation: I reviewed the patient's lab results. Labs: Laboratory Results - last 24 hr 01/23/25 01/23/25 00:50 01:39 WBC 11.7 H RBC 3.06 L Hgb 9.5 L Hct 29.2 L MCV 95.4 H MCH 31.0 MCHC 32.5 RDW Std Deviation 42.3 RDW Coeff of Lola 12.3 Plt Count 261 MPV 11.0 Immature Gran % (Auto) 0.400 Neut % (Auto) 87.1 H Lymph % (Auto) 3.9 L [place] % (Auto) 8.2 Eos % (Auto) 0.1 Baso % (Auto) 0.3 Absolute Neuts (auto) 10.2 H Absolute Lymphs (auto) 0.46 L Nucleated RBC % 0 PT 15.2 H INR 1.2 APTT 35.1 Sodium 136 Potassium 4.0 Chloride 98 Carbon Dioxide 23.8 Anion Gap 14 BUN 25 H Creatinine 2.51 H Estim Creat Clear Calc 26.90 L Est GFR (MDRD) Non-Af 28 L BUN/Creatinine Ratio 9.9 L Glucose 135 H Lactic Acid 1.5 Calcium 8.8 Total Bilirubin 0.61 AST 26 ALT 47 Alkaline Phosphatase 149 H Total Protein 6.8 Albumin 3.5 Globulin 3.3 Albumin/Globulin Ratio 1.1 Urine Color Yellow Urine Clarity Clear Urine pH 7.0 Ur Specific House 1.005 Urine Protein 15 H Urine Glucose (UA) Normal Urine Ketones Negative Urine Occult Blood 10 H Urine Nitrite Negative Urine Bilirubin Negative Urine Urobilinogen Normal Ur Leukocyte Esterase 100 H Urine RBC 0-5 SEEN Urine WBC 0-5 SEEN Ur Squamous Epith Cells 0 SEEN Urine Bacteria 1+ Urine Mucus 0 SEEN Rhythm Strip Rhythm Strip: Sinus Tach Rate: 116 Ectopy: None EKG Initial EKG: Attestation: I personally reviewed and interpreted this EKG as follows: Interpretation: No Acute Injury Pattern and Sinus Tachycardia Comments: Possibly prolonged QTc versus U waves versus both Management Discussion w/another healthcare provider: Hospitalist Discharge Plan Dx/Rx/DC Orders Clinical Impression: Complicated UTI (urinary tract infection), DAMARIS (acute kidney injury), Generalized weakness, Accidental fall from bed Disposition Disposition: [facility]
[2025-01-23] MEDS: 0.9% Normal Saline (1000mL) 1,000 ML 999 ML IV (00:53)
[2025-01-23 01:05] LABS: Hematocrit 29.2 % (40-54); Hemoglobin 9.5 g/dL (13.0-16.5); Immature Granulocytes Count 0.050 X10^3/uL (0.0-0.0); Mean Corp Hgb Conc 32.5 g/dL (32-36); Mean Corpuscular Volume 95.4 fL (80-94); Mean Platelet Vol. 11.0 fl (6.2-12.0); NRBC Flagged by Analyzer 0 % (0-5); POSITIVE DIFFERENTIAL YES; Platelet Count 261 K/mm3 (150-450); RBC Distribution Width CV 12.3 % (11.6-14.6); RBC Distribution Width SD 42.3 fl (35.1-43.9); Red Blood Count 3.06 M/mm3 (4.6-6.2); White Blood Count 11.7 K/mm3 (4.4-11.0)
[2025-01-23] MEDS: Cefepime HCl 2 GM in 0.9% Normal Saline (100mL MB+) 100 ML IV (01:12)
[2025-01-23 01:18] LABS: Prothrombin Time (Protime)PT. 15.2 SECONDS (11.7-14.9)
[2025-01-23 01:19] LABS: Partial Thromboplast Time 35.1 Seconds (24.1-36.2)
--- OUTSIDE RECORDS SUMMARY | 2025-01-23 01:22 | XMS RPT_ITS | CCD ---
Author Organization [facility] Inform ion Partnership [facility] Care Team Providers Care Turbine Operator Name Role Phone INGRID CT TECHPATTERN STORAGE CLERK, CHRISTIAN Primary Care Physician [phone] Carolin PT, Clara Unavailable Dandy SALDANA MD, DR MCLEAN Attending Unavailabl e BALTES CT TECH-PATTERN STORAGE CLERK, [place] Primary Care Unavailabl e YEVGENIY QUINTEROS DO Attending Unavailable BALTES CT TECH-PATTERN STORAGE CLERK, CHRISTIAN Primary Care Unavailabl e YEVGENIY QUINTEROS DO Attending Unavailable BALTES CT TECH-PATTERN STORAGE CLERK, [place] Primary Care UnavailMARLENE Wright MD Attending Unavailable BALTES CT TECH-PATTERN STORAGE CLERK, [place] Primary Care Unavailabl e NINA PRA CT TECH-PATTERN STORAGE CLERK, RICK Rosales Attending Unavail able BALTES CT TECH-PATTERN STORAGE CLERK, CHRISTIAN Primary Care Unavailabl JENNIFER Tellez MD Attending Unavail able BALTES CT TECH-PATTERN STORAGE CLERK, CHRISTIAN Primary Care Unavailabl e BALTES CT TECH-PATTERN STORAGE CLERK, [place] Primary Care Unavailabl citlalli MIXON MD, DR RAMIREZ Attending Unavailab FELI Dinero MD Attending Unavailable BALTES CT TECH-PATTERN STORAGE CLERK, CHRISTIAN Primary Care UnavailJENNIFER Menon MD Attending Unavail able BALTES CT TECH-PATTERN STORAGE CLERK, CHRISTIAN Primary Care Unavailabl JENNIFER Tellez MD Attending Unavail able BALTES CT TECH-PATTERN STORAGE CLERK, CHRISTIAN Primary Care UnavailMARLENE Wright MD Attending Unavailable BALTES CT TECH-PATTERN STORAGE CLERK, CHRISTIAN Primary Care Unavailabl e BALTES CT TECH-PATTERN STORAGE CLERK, CHRISTIAN Primary Care Unavailabl e BONNIE BECKWITH DO Attending Unavailable JENNIFER FRANKS MD Attending Unavail able BALTES CT TECH-PATTERN STORAGE CLERK, CHRISTIAN Primary Care UnavailKATELYN Hurley MD Attending Unavailable BALTES CT TECH-PATTERN STORAGE CLERK, CHRISTIAN Primary Care Unavailabl e BALTES CT TECH-PATTERN STORAGE CLERK, CHRISTIAN Primary Care Unavailabl e KATELYN SAAB MD Attending Unavailable [facility], TAMIKA Attending Unavailable BALTES CT TECH-PATTERN STORAGE CLERK, CHRISTIAN Primary Care Unavailabl e [facility], TAMIKA Attending Unavailable BALTES CT TECH-PATTERN STORAGE CLERK, CHRISTIAN Primary Care Unavailabl e RENE ANG Referring Unavailable RENE ANG Attending Unavailable RENE ANG Admitting Unavailable CHALASANI, ELSA Consulting Unavailable BALTES, CHRISTIAN Primary Care Unavailable BALTES CT TECH-PATTERN STORAGE CLERK, CHRISTIAN Attending Unavailabl e BALTES CT TECH-PATTERN STORAGE CLERK, CHRISTIAN Primary Care Unavailabl e Gregory DRAWBENCH OPERATOR-C, Stephanie Attending Provider Asad DRAWBENCH OPERATOR-C, [facility] Referring Provider [phone] Ingrid DRAWBENCH OPERATOR-C, [place] Primary Care Provider [phone] Asad DRAWBENCH OPERATOR-C, [facility] Primary Care Provider Gregory DRAWBENCH OPERATOR-C, Stephanie Referring Provider Gregory DRAWBENCH OPERATOR-C, Stephanie [facility]PER[facility]-C, [place] Primary Care Physician Asad DRAWBENCH OPERATOR-C, [facility] Primary Care Physician Dr. Juan Cazares DO Attending Physician Dr. Juan Cazares DO Nurse Practitioner Care Physician, No Primary Primary Care Unava ilable Bret, Tasha Admitting Unavailable Bret Tasha Consulting Unavailable Chucho Meyer Attending Unavailable Abby Rambo Referring Unavailable Landen Adorno Consulting Unavailable Chucho Meyer Consulting Unavailable Care Physician, No Primary Primary Care Unava ilable Queen, Tasha Admitting Unavailable Queen, Tasha Consulting Unavailable Abby, Rambo Referring Unavailable Yan Pan Attending Unavailable Landen Adorno Consulting Unavailable Chucho Meyer Consulting Unavailable Marcos Walker Attending Unavailable Asad BARBA, [facility] Primary Care Unavaila ble Stephanie Jenkins Referring Unavailable Stephanie Jenkins Attending Unavailable Asad BARBA, [facility] Primary Care Unavaila ble Juna Cazares Attending Unavailable Asad BARBA, [facility] Referring Unavaila ble Asad BARBA, [facility] Primary Care Unavaila ble Landen Adorno Attending Unavailable Juan Cazares Attending Unavailable Juan Cazaers Consulting Unavailable Asad BARBA, [facility] Referring Unavaila ellen Kamara DRAWBENCH OPERATOR, [facility] Primary Care Unavaila [facility] Care Physician, No Primary Primary Care Unava ilable Ross Espitia Attending Unavailable Stephanie Jenkins Attending Unavailable Asad DRAWBENCH OPERATOR, [facility] Referring Unavaila ellen Quintero DRAWBENCH OPERATOR, [place] Primary Care Unavailable Care Physician, No Primary Primary Care Unava ilable Tasha Queen Attending Unavailable Rambo Mora Referring Unavailable Yan Pan Attending Unavailable Yan Pan Consulting Unavailable Gregory DRAWBENCH OPERATOR-C, Stephanie Attending Physician Asad DRAWBENCH OPERATOR-C, [facility] Referring Provider Ingrid DRAWBENCH OPERATOR-C, [place] Primary Care Physician [phone] Asad DRAWBENCH OPERATOR-C, [facility] Primary Care Physician Gregory DRAWBENCH OPERATOR-C, Stephanie Referring Provider Dr. Juan Cazares DO Attending Physician Dr. Juan Cazares DO Nurse Practitioner Aaron العراقي, Dr. Rodríguez Attending Physician [phone] Dr. Marcos Walker MD Emergency Department Physician Medications Current Medications Medication Drug Class(es) Dates Sig (Normalized) Sig (Original) acetaminophen 325 mg oral tablet (18 sources) Start: 11-08-2024 Start: 02-01-2024 End: 11-08-2024 take 1 tablet by mouth every four hours as needed for pain Acetaminophen (Tylenol Extra Strength) 500 mg tablet Discontinued 500 mg PO Q4H as needed for pain February 01, 2024 12:00am November 08, 2024 11:08am Start: 10-11-2022 acetaminophen 500 mg oral capsule Dose : 1,000 mg = 2 cap(s), Oral, q4h, PRN for fever/pain, # 120 cap(s), 0 Refill(s) Start Date: 10/11/22 Status: Ordered ARIPiprazole 5 mg oral tablet (16 sources) Atypical Antipsychotic Start: 02-01-2024 take 7.5 mg by mouth once daily Start: 02-01-2024 take 1 tablet by mag th once daily Aripiprazole 5 mg tablet Active 5 mg PO DAILY February 01, 2024 1:00am mental health Start: 10-11-2022 ARIPiprazole 5 mg oral tablet Dose : 5 mg = 1 tab(s), Oral, qDay, # 90 tab(s), 0 Refill(s), Pharmacy: [facility]/pharmacy #[id number], 177.8, cm, 10/11/22 11:26:00 EDT, Height, kg, 10/11/22 11:26:00 EDT, Dosing Weight Start Date: 10/11/22 Status: Ordered 24 hr buPROPion hydrochlorid e 150 mg extended release oral tablet (7 sources) Aminoketone Start: 02-01-2024 take 1 tablet by mag th once daily Start: 06-15-2023 take 1 tablet by mag th every hour, then take 1 tablet by mouth every twenty-four hours buPROPion 150 mg/24 hours (XL) oral tablet, extended release Dose : 150 mg = 1 tab(s), Oral, q24h, 0 Refill(s) Start Date: 06/15/23 Status: Ordered cyclobenzaprine hydrochloride 5 mg oral tablet (2 sources) Muscle Relaxant Start: 07-18-2023 End: 07-23-2023 cyclobenzaprine 5 mg oral tablet Dose : 5 mg = 1 tab(s), Oral, TID, PRN Muscle spasm, X 5 day(s), # 15 tab(s), 0 Refill(s), 07/23/23 12:34:00 AM EDT Start Date: 07/18/23 Stop Date: 07/23/23 Status: Ordered ibuprofen 200 mg oral tablet (8 sources) Nonsteroidal Anti-inflammatory Drug Start: 02-01-2024 take 2 tablets by mouth every six hours as needed for pain Start: 12-22-2023 ibuprofen 200 mg oral tablet Dose : 400 mg = 2 tab(s), Oral, q6hr, PRN pain or fever, takes more than supposed to at times, 0 Refill(s) Start Date: 12/22/23 Status: Ordered Start: 07-21-2023 End: 08-04-2023 ibuprofen 600 mg oral tablet Dose : 600 mg = 1 tab(s), Oral, TID, PRN as needed for pain, X 14 day(s), # 42 tab(s), 0 Refill(s), 08/04/23 12:00:00 PM EDT, Pharmacy: [facility]/pharmacy #[id number], Low back pain, 177.8, cm, 07/21/23 10:52:00 EDT, Height, kg, 07/21/23 10:52:00 EDT, Dosing Weight Start Date: 07/21/23 Stop Date: 08/04/23 Status: Ordered Start: 07-18-2023 End: 07-23-2023 ibuprofen 400 mg oral tablet Dose : 400 mg = 1 tab(s), Oral, q6h, PRN as needed for pain, X 5 day(s), # 20 tab(s), 0 Refill(s), 07/23/23 12:34:00 AM EDT Start Date: 07/18/23 Stop Date: 07/23/23 Status: Ordered Start: 11-26-2019 ibuprofen 200 mg oral tablet Dose : 400 mg = 2 tab(s), Oral, q6hr, PRN pain or fever, 0 Refill(s) Start Date: 11/26/19 Status: Ordered meloxicam 7.5 mg oral tablet (5 sources) Nonsteroidal Anti-inflammatory Drug Start: 02-01-2024 take 1 tablet by mouth once daily as needed for pain Start: 12-22-2023 End: 01-21-2024 meloxicam 7.5 mg oral tablet Dose : 7.5 mg = 1 tab(s), Oral, qDay, PRN Pain, # 30 tab(s), 0 Refill(s), Pharmacy: [facility]/pharmacy #[id number], Knee pain, 176, cm, 12/22/23 11:05:00 EDT, Height, kg, 12/22/23 11:05:00 EDT, Dosing Weight Start Date: 12/22/23 Stop Date: 01/21/24 Status: Ordered mirtazapine 7.5 mg oral tabl et (13 sources) Start: 10-14-2024 take 1 tablet by mag th at bedtime Start: 10-11-2022 mirtazapine 15 mg oral tablet Dose : 15 mg = 1 tab(s), Oral, qHS, # 90 tab(s), 0 Refill(s), Pharmacy: [facility]/pharmacy #[id number], 177.8, cm, 10/11/22 11:26:00 EDT, Height, kg, 10/11/22 11:26:00 EDT, Dosing Weight Start Date: 10/11/22 Status: Ordered omeprazole 40 mg delayed release oral capsule (1 source) Proton Pump Inhibitor Start: 11-26-2019 omeprazole 40 mg oral delayed release capsule Dose : 40 mg = 1 cap(s), Oral, qDay, # 90 cap(s), 1 Refill(s), Pharmacy: [facility]/pharmacy #[id number], Acid reflux, 175.3, cm, 11/26/19 8:29:00 EDT, Height, kg, 11/26/19 8:29:00 EDT, Dosing Weight Start Date: 11/26/19 Status: Ordered ondansetron 4 mg disintegrating oral tablet (4 sources) Serotonin-3 Receptor Antagonist Start: 10-14-2024 take 1 tablet by mouth every four hours as needed for nausea and vomiting Start: 10-14-2024 take 1 tablet by mag th every eight hours Ondansetron 4 mg tablet,disintegrating Active 4 mg PO Q8H October 14, 2024 12:00am pantoprazole 40 mg delayed release oral tablet (16 sources) Proton Pump Inhibitor Start: 02-01-2024 take 1 tablet by mouth once daily Start: 08-13-2023 pantoprazole 4 0 mg oral enteric coated tablet Dose : 40 mg = 1 tab(s), Oral, qDay, # 90 tab(s), 1 Refill(s), Pharmacy: [facility]/pharmacy #[id number], GERD (gastroesophageal reflux disease), 177.8, cm, 07/21/23 10:52:00 EDT, Height, kg, 07/21/23 10:52:00 EDT, Dosing Weight Start Date: 08/13/23 Status: Ordered Start: 10-11-2022 pantoprazole 4 0 mg oral enteric coated tablet Dose : 40 mg = 1 tab(s), Oral, qDay, # 90 tab(s), 1 Refill(s), Pharmacy: [facility]/pharmacy #[id number], GERD (gastroesophageal reflux disease), 177.8, cm, 10/11/22 11:26:00 EDT, Height, kg, 10/11/22 11:26:00 EDT, Dosing Weight Start Date: 10/11/22 Status: Ordered Peg 3350-Sod Sulf,Yquj-Hdp-Mgx (Suflave) 178.7-7.3-0.5 gram recon soln (2 sources) Start: 10-14-2024 Peg 3350-Sod Sulf,Czjl-Rcl-Rdd (Suflave) 178.7-7.3-0.5 gram recon soln Active 0 PO .COMPLEX 2 0 October 14, 2024 12:00am Take as directed for split dose bowel prep solifenacin succinate 10 mg oral tablet (4 sources) Cholinergic Muscarinic Antagonist Start: 10-14-2024 take 1 tablet by mouth once daily tamsulosin hydrochloride 0.4 mg oral capsule (4 sources) alpha-Adrenergic David Start: 10-14-2024 take 1 capsule by mouth at bedtime Completed/Discontinued Medications Medication Drug Class(es) Dates Sig (Normalized) Sig (Original) clorazepate dipotassium 3.75 mg oral tablet (4 sources) Benzodiazepine Start: 08-05-2022 End: 02-02-2024 take 1 tablet by mouth twice daily as needed for anxiety Clorazepate Dipotassium 3.75 mg tablet Discontinued 3.75 mg PO TWICE A DAY as needed for anxiety 10 5 August 04, 2022 11:00pm February 02, 2024 2:37am donepezil hydrochloride 5 mg oral tablet (11 sources) Start: 02-02-2024 End: 02-04-2024 take 1 tablet by mouth at bedtime Donepezil 5 mg tablet Discontinued 5 mg PO AT BEDTIME February 02, 2024 12:00am February 04, 2024 12:20pm dementia Start: 02-23-2023 donepezil 10 m g oral tablet Dose : 10 mg = 1 tab(s), Oral, qDay Start Date: 02/23/23 Status: Ordered PARoxetine hydrochloride 30 mg oral tablet (5 sources) Serotonin Reuptake Inhibitor Start: 11-26-2019 End: 02-04-2024 take 1 tablet by mouth once daily Paroxetine Hcl (Paxil) 30 mg tablet Discontinued 30 mg PO DAILY 14 0 August 04, 2022 11:00pm February 04, 2024 12:20pm pt states does not take Peg 3350-Sod Sulf,Jbqc-Fqe-Owr (2 sources) Start: 10-14-2024 End: 11-08-2024 Peg 3350-Sod Sulf,Ygig-Kci-Wmo (Suflave) 178.7-7.3-0.5 gram recon soln Discontinued 0 PO .COMPLEX 2 0 October 13, 2024 11:00pm November 08, 2024 11:24am Take as directed for split dose bowel prep Start: 10-14-2024 End: 11-08-2024 Peg 3350-Sod Sulf,Chlr-Pot-M ag (Suflave) 178.7-7.3-0.5 gram recon soln Discontinued 0 PO .COMPLEX 2 0 October 14, 2024 12:00am November 08, 2024 12:24pm Take as directed for split dose bowel prep traZODone hydrochloride 100 mg oral tablet (16 sources) Serotonin Reuptake Inhibitor Start: 02-01-2024 End: 10-14-2024 take 1 tablet by mouth at bedtime Trazodone 100 mg tablet Discontinued 100 mg PO AT BEDTIME February 01, 2024 12:00am October 14, 2024 9:18am sleep Start: 12-22-2023 traZODone 100 mg oral tablet Dose : 100 mg = 1 tab(s), Oral, qHS, 0 Refill(s) Start Date: 12/22/23 Status: Ordered Start: 10-11-2022 traZODone 50 m g oral tablet Dose : 50 mg = 1 tab(s), Oral, qHS, # 90 tab(s), 0 Refill(s), Pharmacy: [facility]/pharmacy #[id number], Insomnia, 177.8, cm, 10/11/22 11:26:00 EDT, Height, kg, 10/11/22 11:26:00 EDT, Dosing Weight Start Date: 10/11/22 Status: Ordered Problems Active Problems Problem Classification Problem Date Documented Date Episodic/Chronic Abdominal pain (3 sources) Abdominal pain; Translations: [Unspecified abdominal pain] Onset: 07-21-2023 Episodic Anxiety disorders (20 sources) Anxiety; Translations: [Anxiety disorder, unspecified] 10-18-2016 Chronic Biliary tract disease (4 sources) Gallstone; Translations: [Calculus of gallbladder without cholecystitis without obstruction] 10-14-2024 Episodic Deficiency and other anemia (4 sources) Anemia, unspecified; Translations: [Anemia, unspecified] Onset: 12-22-2023 Episodic Deficiency and other anemia (10 sources) Anemia; Translations: [Anemia, unspecified] 10-07-2024 Episodic Esophageal disorders (17 sources) Gastroesophageal reflux disease; Translations: [Gastro-esophageal reflux disease with esophagitis] 09-07-2018 Chronic Fluid and electrolyte disorders (1 source) Dehydration; Translations: [Dehydration] Onset: 06-12-2023 Episodic Intracranial injury (4 sources) History of closed head injury; Translations: [Personal history of traumatic brain injury] 08-13-2022 Episodic Mood disorders (20 sources) Recurrent major depression in remission; Translations: [Severe major depression, single episode, with psychotic features] Onset: 02-24-2023 09-07-2018 Chronic Noninfectious gastroenteritis (1 source) Inflammatory bowel disease; Translations: [Noninfective gastroenteritis and colitis, unspecified] 12-06-2024 Episodic Open wounds of head; neck; and trunk (4 sources) Facial laceration ; Translations: [Laceration without foreign body of other part of head, initial encounter] 02-01-2024 Episodic Other circulatory disease (5 sources) Low blood pressure; Translations: [Hypotension, unspecified] Onset: 06-12-2023 Episodic Other injuries and conditions due to external causes (4 sources) Injury of head; Translations: [Unspecified injury of head, initial encounter] 02-12-2024 Episodic Other nervous system disorders (1 source) Paresthesia; Translations: [Paresthesia of skin] Onset: 06-12-2023 Episodic Other non-traumatic joint disorders (4 sources) Pain in unspecified knee; Translations: [Knee pain] 10-07-2024 Episodic Other screening for suspected conditions (not mental disorders or infectious disease) (14 sources) Encounter for screening for cardiovascular disorders; Translations: [Encounter for screening for malignant neoplasm of prostate] Onset: 12-22-2023 Episodic Residual codes; unclassified (6 sources) Family history of cancer of colon; Translations: [Family history of malignant neoplasm of digestive organs] 10-14-2024 Episodic Residual codes; unclassified (1 source) Family history of malignant neoplasm of digestive organs; Translations: [Family history of malignant neoplasm of digestive organs] Onset: 12-02-2024 Episodic Schizophrenia and other psychotic disorders (4 sources) Paranoid disorder; Translations: [Delusional disorders] 08-13-2022 Chronic Spondylosis; intervertebral disc disorders; other back problems (4 sources) Low back pain; Translations: [Low back pain, unspecified] Onset: 07-18-2023 Episodic Sprains and strains (1 source) Strain of muscle and/or tendon of lower leg; Translations: [Strain of unspecified muscle(s) and tendon(s) at lower leg level, unspecified leg, initial encounter] Onset: 04-18-2023 Episodic Suicide and intentional self-inflicted injury (5 sources) Suicidal thoughts; Translations: [Suicidal ideations] Onset: 02-10-2023 Episodic Superficial injury; contusion (12 sources) Contusion of hip 09-23-2022 Episodic Syncope (7 sources) Syncope; Translations: [Syncope and collapse] Onset: 02-12-2024 02-12-2024 Episodic Unclassified (12 sources) Contusion of left hip region 09-23-2022 Past or Other Problems Problem Classification Problem Date Documented Da te Episodic/Chronic Acute and unspecified renal failure (5 sources) Acute renal failure syndrome; Translations: [Acute kidney failure, unspecified] Onset: 02-12-2024 02-12-2024 Episodic Other injuries and conditions due to external causes (1 source) Unspecified injury of head, subsequent encounter; Translations: [Unspecified injury of head, subsequent encounter] Onset: 02-12-2024 Episodic Results Test Name Value Interpretation Reference Range Facility 12 Lead EKGon 12-18-[address] [facility] [address] [place] [address] 12 Lead EKG 12/18/24 1038 MR#: [id number] Acct: [id number] Name: CASSIDYELJAYCOBDesirae PITTS Rep #: [id number] : 1960 63 From: Landen Adorno MD Attending Dr: Status: DEP ER Ordering Dr: Marcos Walker MD Date: 12/18/24 Location: ED Sex: M C Admitted: Test Reason : SYNCOPE Blood Pressure : */* mmHG Vent. Rate : 76 BPM Atrial Rate : 76 BPM P-R Int : 162 ms QRS Dur : 84 ms QT Int : 410 ms P-R-T Axes : 78 79 55 degrees QTcB Int : 461 ms Normal sinus rhythm Normal ECG Confirmed by Landen Adorno ([id number]), brands editor ARABELLA MITCHELL ([id number]) on 12/19/2024 9:41:21 AM Referred By: PREM Confirmed By: Landen Adorno 12/19/24940 Date Landen Adorno MD CC: IRIS Kamara; Dr. Marcos Walker MD Signed Normal [facility] Electrocardiogram reportOrde red By: Landen Adorno on 12-18-[address] [facility] [address] [place] [address] 12 Lead EKG 12/18/24 1038 MR#: [id number] Acct: [id number] Name: JAYCOB CRYSTAL Rep #:[id number] : 1960 63 From: Landen judd MD Attending Dr: Status: DEP E R Ordering Dr: Marcos Walker MD Date: 12/18 Location: ED Sex: M C Admitted: Test Reason : SYNCOPE Blood Pressure : */* mmHG Vent. Rate : 76 BPM Atrial Rate : 76 BPM P-R Int : 162 ms QRS Dur : 84 ms QT Int : 410 ms P-R-T Axes : 78 79 55 degrees QTcB Int : 461 ms Normal sinus rhythm Normal ECG Confirmed by Landen Adorno ([id number]), brands editor ARABELLA MITHCELL ([id number]) on 59:41:21 AM Referred By: PREM Confirmed By: Landen Adorno 12/19/24940 Date _ Landen Adorno MD CC: IRIS Kamara; Dr. Marcos Walker MD ~ Signed [facility] Other Phone: Emergency Department Summary on 12-18-2024 Emergency Department Summary [facility] Medical Records Department [address] [place] [address] Emergency Department Summary 12/18/24 MR#: [id number] Acct: [id number] Name: JAYCOB CRYSTAL Rep #: [id number] : 1960 63 From: Marcos Walker MD PCP: Katelyn Kamara DRAWBENCH OPERATORElena Status:REG ER Location: ED HPI History of Present Illness Chief Complaint: Syncope Detail of Chief Complaint: Syncopal episode attempting to self cath self Informant: patient Onset/Context/Timing Onset: Today and Hours Context: Sudden Onset Timing: Intermittent Quality: Syncope Location: Nursing facility Current Severity: Gone Maximum Severity: Severe Worsened by: Patient states he was having discomfort when he was attempting to insert Fo Relieved by: Procedure aborted Associated Symptoms Associated Symptoms: Vagal response Narrative Narrative: Patient is a 63-year-old male. He states he has urinary retention. He was attempting to self cath himself. He was learning how. Nurses caught him before he fell. He apparently was experiencing severe pain got lightheaded and passed out. He reportedly was diaphoretic and may have been pale. There was no seizure or abnormal motor activity. There is no incontinence. Prior similar symptoms: No Recent Illness/Hospitalizati on: No PFSH PFSH Medical History Loss of consciousness History of echocardiogram Cardiology follow-up encounter Lives in assisted living facility Bladder disease Autism Anemia Suicide attempt Acute insomnia GERD (gastroesophageal reflux disease) Anxiety Depression Home Medications ???Medication ???Instructions ???Recorded ???Last Taken ???Type aripiprazole 5 mg tablet 7.5 mg PO DAILY mental health 07/2011/22/24 History bupropion HCl 150 mg 24 hr tablet, 150 mg PO DAILY mental health 11/22/24 History extended release ibuprofen 200 mg tablet (Advil) 400 mg PO Q6H PRN pain 02/01/24 Un known History meloxicam 7.5 mg tablet 7.5 mg PO DAILY PRN pain 02/01/24 11/22/24 History pantoprazole 40 mg tablet,delayed 40 mg PO DAILY reflux 02/01/24 History release mirtazapine 7.5 mg tablet 7.5 mg PO QHS 10/14/24 11/21/24 Hi story ondansetron 4 mg disintegrating 4 mg PO Q4H PRN nausea and vomitin g 10/14/24 Unknown History tablet solifenacin 10 mg tablet 10 mg PO QDAY 10/14/24 11/22/24 Hi [place] tamsulosin 0.4 mg capsule 0.4 mg PO QHS 10/14/24 11/21/24 Hi story acetaminophen 325 mg tablet (Pain 650 mg PO Q6H PRN pain 11/08/24 U nknown History Relief (acetaminophen)) Allergy/AdvReac Type Severity Reaction Status Date / Time No Known Allergies Allergy Verified 12/18/24 10:29 Surgical History History of facial surgery History of surgery on lower extremity Hx of cholecystectomy Social History housing: apartment current occupational status: unemployed Smoking Status: Never smoker ROS ROS ED Constitutional Constitutional ED: Denies chills, fever(s), subjective, sweats or weight loss Gastrointestinal Gastrointestinal: Reports nausea; Denies abdominal pain or vomiting Genitourinary Genitourinary ED: Reports other Details: Bladder dystonia and incomplete voiding ; Denies dysuria, hematuria or urinary frequency Musculoskeletal Musculoskeletal: Denies back pain Integumentary Denies rash Hematologic/Lymphatic Hematologic/Lymphatic : Reports systems reviewed and no addt'l complaints, except as documented EXAM Physical Exam Const Vital Signs: 12/18/24 10:25 12/18/24 10:30 Temperature 97.9 F Temperature Source Oral Pulse Rate 80 Respiratory Rate 18 Respiratory Effort Normal Non-Labored Respiratory Pattern Normal Blood Pressure 118/76 Blood Pressure Mean 90 Pulse Ox 100 Oxygen Delivery Method Room Air Positive well nourished and well developed General Appearance ED: well developed, NAD and pallor HEENT Reports moist mucous membranes HEENT Narrative: Head is atraumatic and normocephalic. Patient has prior incisions noted suspect due to subdural hematoma. Ears normal. Nares patent. Posterior pharynx is normal Eyes PERRL and EOMs intact bilaterally General Eye ED: Negative for scleral icterus Neck no lymphadenopathy, supple and no JVD Resp normal respiratory effort and clear to auscultation bilaterally Cardio regular rate, regular rhythm, S1 normal heart sound, S2 normal heart sound and no murmurs GI normal to inspection, nondistended, normoactive bowel sounds, non-tender, non-distended and no masses; Negative for hepatosplenomegaly Narrative: External genitalia normal Extremity normal to inspection General Extremety ED: Negat (more content not included)... Normal [facility] [facility] Reporton [address] [facility] Medical Records Department [address] [place] [address] Colonoscopy Report MR#: [id number] Acct: [id number] Name: JAYCOB CRYSTAL Rep #: [id number] : 1960 63 From: Juan Cazares DO PCP: IRIS eMier [place] [facility] [place] Name: Jaycob Crystal Procedure Date: 11/22/2024 1:03 PM Date of : 1960 Age: 63 Procedure: Colonoscopy Indications: Screening for colorectal malignant neoplasm Providers: Juan Cazares DO Medicines: Monitored Anesthesia Care Patient Profile: This is a 63 year old male. Refer to note in patient chart for documentation of history and physical. Patient has symptoms of acute left upper quadrant abdominal pain, acute dyspepsia and chronic nausea. Last Colonoscopy: several years ago. Complications: No immediate complications. Procedure: Pre-Anesthesia Assessment: - Prior to the procedure, a History and Physical was performed, and patient medications and allergies were reviewed. The patient is competent. The risks and benefits of the procedure and the sedation options and risks were discussed with the patient. All questions were answered and informed consent was obtained. Patient identification and proposed procedure were verified by the physician in the pre-procedure area. Mental Status Examination: alert and oriented. Airway Examination: normal oropharyngeal airway and neck mobility. Respiratory Examination: clear to auscultation. CV Examination: normal. ASA Grade Assessment: II - A patient with mild systemic disease. After reviewing the risks and benefits, the patient was deemed in satisfactory condition to undergo the procedure. The anesthesia plan was to use monitored anesthesia care (MAC). Immediately prior to administration of medications, the patient was re-assessed for adequacy to receive sedatives. The heart rate, respiratory rate, oxygen saturations, blood pressure, adequacy of pulmonary ventilation, and response to care were monitored throughout the procedure. The physical status of the patient was re-assessed after the procedure. After I obtained informed consent, the scope was passed under direct vision. Throughout the procedure, the patient's blood pressure, pulse, and oxygen saturations were monitored continuously. The Colonoscope was introduced through the anus and advanced to the terminal ileum. The colonoscopy was performed without difficulty. The patient tolerated the procedure well. The quality of the bowel preparation was adequate. The ileocecal valve, appendiceal orifice, and rectum were photographed. Scope In: 1:04:55 PM Scope Withdrawal Time 0 hours 6 minutes 50 seconds Scope Out: 1:15:32 PM Total Procedure Duration Time 0 hours 10 minutes 37 seconds Findings: The perianal and digital rectal examinations were normal. A few small-mouthed diverticula were found in the sigmoid colon. Patchy mild inflammation characterized by congestion (edema) and erythema was found in the rectum and in the cecum. Biopsies were taken with a cold forceps for histology. Verification of patient identification for the specimen was done. Estimated blood loss was minimal. The terminal ileum appeared normal. Impression: - Diverticulosis in the sigmoid colon. - Patchy mild inflammation was found in the rectum and in the cecum secondary to colitis. Biopsied. - The examined portion of the ileum was normal. Recommendation: - Discharge patient to home. - Resume previous diet. - Continue present medications. - Await pathology results. - Repeat colonoscopy in 5 years for surveillance. Procedure Code(s): --- Professional --- 56099, Colonoscopy, flexible; with biopsy, single or multiple CPT copyright 2021 [employer]. All rights reserved. The codes documented in this report are preliminary and upon patent examiner review may be revised to meet current compliance requirements. Juan Cazares DO 11/22/2024 1:27:34 PM This report has been signed electronically. Number of Addenda: 0 Note Initiated On: 11/22/2024 1:03 PM 11/22/24 1327 Date Juan Suero Signature: Date (if indicated) CC: DRAWBENCH OPERATOR-C Katelyn Kamara; Juan Cazares DO Date Dictated: 11/22/24 1303 Date Transcribed: Customer Account Coordinator: NELLY Signed [facility] EGD Reporton 11-22-[address] [facility] Medical Records Department [address] [place] [address] EGD Report MR#: [id number] Acct: [id number] Name: JAYCOB CRYSTAL Rep #: [id number] : 1960 63 From: Juan Cazares DO PCP: IRIS Meier Status:REG SDC Patient Name: Jaycob Crystal Procedure Date: 11/22/2024 12:49 PM Date of : 1960 Age: 63 Procedure: Upper GI endoscopy Indications: Epigastric abdominal pain, Abdominal pain in the left upper quadrant, Unexplained iron deficiency anemia, Dyspepsia Providers: Juan Cazares DO Medicines: Monitored Anesthesia Care Patient Profile: This is a 63 year old male. Refer to note in patient chart for documentation of history and physical. Patient has symptoms of acute left upper quadrant abdominal pain, acute dyspepsia and chronic nausea. Complications: No immediate complications. Procedure: Pre-Anesthesia Assessment: - Prior to the procedure, a History and Physical was performed, and patient medications and allergies were reviewed. The patient is competent. The risks and benefits of the procedure and the sedation options and risks were discussed with the patient. All questions were answered and informed consent was obtained. Patient identification and proposed procedure were verified by the physician in the pre-procedure area. Mental Status Examination: alert and oriented. Airway Examination: normal oropharyngeal airway and neck mobility. Respiratory Examination: clear to auscultation. CV Examination: normal. ASA Grade Assessment: II - A patient with mild systemic disease. After reviewing the risks and benefits, the patient was deemed in satisfactory condition to undergo the procedure. The anesthesia plan was to use monitored anesthesia care (MAC). Immediately prior to administration of medications, the patient was re-assessed for adequacy to receive sedatives. The heart rate, respiratory rate, oxygen saturations, blood pressure, adequacy of pulmonary ventilation, and response to care were monitored throughout the procedure. The physical status of the patient was re-assessed after the procedure. After obtaining informed consent, the endoscope was passed under direct vision. Throughout the procedure, the patient's blood pressure, pulse, and oxygen saturations were monitored continuously. The Colonoscope was introduced through the mouth, and advanced to the third part of the duodenum. Small bowel enteroscopy was deemed necessary. The upper GI endoscopy was accomplished without difficulty. The patient tolerated the procedure well. Scope In: 12:58:08 PM Scope Out: 1:03:24 PM Total Procedure Duration Time 0 hours 5 minutes 16 seconds Findings: A single 4 mm polyp with no bleeding was found 40 to 42 cm from the incisors. The polyp was removed with a cold biopsy forceps. Resection and retrieval were complete. Verification of patient identification for the specimen was done. Estimated blood loss was minimal. A small hiatal hernia was present. Patchy mildly erythematous mucosa without bleeding was found in the gastric body. Biopsies were taken with a cold forceps for histology. Verification of patient identification for the specimen was done. Biopsies were taken with a cold forceps for Helicobacter pylori testing. Verification of patient identification for the specimen was done. Estimated blood loss was minimal. Patchy mild inflammation characterized by congestion (edema) was found in the entire duodenum. Biopsies were taken with a cold forceps for histology. Verification of patient identification for the specimen was done. Estimated blood loss was minimal. Impression: - Esophageal polyp(s) were found. Resected and retrieved. - Small hiatal hernia. - Erythematous mucosa in the gastric body. Biopsied. - Chronic duodenitis. Biopsied. Recommendation: - Discharge patient to home. - Resume previous diet. - Continue present medications. - Await pathology results. Procedure Code(s): --- Professional --- 82562, Small intestinal endoscopy, enteroscopy beyond second portion of duodenum, not including ileum; with biopsy, single or multiple CPT copyright 2021 [employer]. All rights reserved. The codes documented in this report are preliminary and upon patent examiner review may be revised to meet current compliance requirements. Juan Cazares DO 11/22/2024 1:24:49 PM This report has been signed electronically. Number of Addenda: 0 Note Initiated On: 11/22/2024 12:49 PM 11/22/24 1325 Date Juan Suero Signature: Date (if indicated) CC: DRAWBENCH OPERATOR-C Katelyn Kamara; Juan Cazares, Date Dictated: 11/22/24 1249 Date Transcribed: Customer Account Coordinator: NELLY (more content not included)... [facility] Immunohistochemical Stainson 11-22-2024 Immunohistochemical Stains -------- Patient Age/Sex Location Account Attending Physician -------- JAYCOB CRYSTAL 63/M EN [id number] Juan Cazares, -------- Specimen: [id number] Received: 11/22/24-1350 Status: PRASHANT Guaman Num: [id number] Spec Type: COLON BX Subm Dr: Juan Cazares DO HEADER OPERATION: Colonoscopy, EGD with biopsy PRE-OP DIAGNOSIS: Anemia and screening colonoscopy TISSUE SUBMITTED: A- Duodenum biopsy, B- Gastric antrum biopsy, C- Distal polyp biopsy, D- Ileo-cecal valve biopsy, E- Rectal biopsy -------- MICROSCOPIC DIAGNOSIS A. 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 * Negative for increased intraepithelial lymphocytes. B. Gastric antrum, biopsy: * Oxyntic and antral mucosa with chronic inflammation. * IHC negative for H. pylori organisms. C. Distal, polyp, biopsy: * Gastric mucosa with polypoid foveolar hyperplasia, suggestive of hyperplastic polyp. D. Ileo-cecal valve, biopsy: * Ileal and colonic mucosa with mild acute inflammation. E. Rectum, biopsy: * Focal active colitis - see note. Note: Focal mild acute inflammation is noted without features of chronicity. This is a nonspecific finding which may result from bowel prep artifact, mild infection, medication injury (eg: NSAIDs) and ischemia. Recommend correlation with clinical and endoscopic findings. MICROSCOPIC DESCRIPTION Slides are reviewed. All matched controls reacted appropriately. These tests were developed and their performance characteristics determined by [facility]. They may not have been cleared or approved by the U.S. Food and Drug Administration. The FDA has determined that such clearance or approval is not necessary. The above immunohistochemical markers and/or special stains have been reviewed by the Pathologist. -------- Patient Age/Sex Location Account Attending Physician -------- JAYCOB CRYSTAL 63/M EN [id number] Juan Cazares DO -------- GROSS DESCRIPTION A. Received in fixative is one container labeled with the patient's name and designated Duodenum biopsy. The specimen consists of two irregular fragments of schofield tissue, each measuring 0.4 cm. The specimen is totally submitted in one cassette. B. Received in fixative is one container labeled with the patient's name and designated Gastric antrum biopsy. The specimen consists of two irregular fragments of schofield tissue that measure 0.4 and 0.6 cm. The specimen is totally submitted in one cassette. C. Received in fixative is one container labeled with the patient's name and designated Distal polyp biopsy. The specimen consists of two irregular fragments of schofield tissue, each measuring 0.4 cm. The specimen is totally submitted in one cassette. D. Received in fixative is one container labeled with the patient's name and designated Ileo-cecal valve biopsy. The specimen consists of two irregular fragments of schofield tissue that measure 0.2 and 0.3 cm. The specimen is totally submitted in one cassette. E. Received in fixative is one container labeled with the patient's name and designated Rectal biopsy. The specimen consists of one irregular fragment of schofield tissue that measures 0.9 cm. The specimen is totally submitted in one cassette. AR 11/22/2024 CPT:42208v7,86081 -------- Patient Age/Sex Location Account Attending Physician -------- JAYCOB CRYSTAL 63/M EN [id number] Juan Cazares DO -------- Signed (signature on file) Dr. Amelia Dodge MD 12/03/24 1547 -------- [facility] Comment on above: Performed By: #### P LUCITA ####[facility] [address] [place], [place], [id number] MR/OP.[facility]24 [facility] Medical Records Department [address] [place] [address] Provation Physician Letter MR#: [id number] Acct: [id number] Name: ANKITROSALBAJAYCOB GALLEGOS HONG Rep #: [id number] : 1960 63 From: Juan Cazares DO PCP: ALEKSANDER MeierC [place] [facility] [place]/22/2024 Katelyn Kamara Re : Colonoscopy procedure for Jaycob Crystal Mary Kamara This procedure was performed on Friday, November 22, 2024. My impressions and recommendations are as follows: Impressions : - Diverticulosis in the sigmoid colon. - Patchy mild inflammation was found in the rectum and in the cecum secondary to colitis. Biopsied. - The examined portion of the ileum was normal. Recommendations : - Discharge patient to home. - Resume previous diet. - Continue present medications. - Await pathology results. - Repeat colonoscopy in 5 years for surveillance. My findings are described in the full procedure note, which is enclosed. If I can be of further assistance, please feel free to contact me at . Sincerely, Juan Cazares DO 11/22/2024 1:27:34 PM This report has been signed electronically. 11/22/24 1327 Date Juan Suero Signature: Date (if indicated) CC: DRAWBENCH OPERATOR-C Katelyn Kamara; Juan Cazares DO Date Dictated: 11/22/24 1303 Date Transcribed: Customer Account Coordinator: RF Signed [facility] MR/OP.[facility] Medical Records Department [address] [place] [address] Provation Physician Letter MR#: [id number] Acct: [id number] Name: JAYCOB CRYSTAL HONG Rep #: [id number] : 1960 63 From: Juan Cazares DO PCP: IRIS Meier [place] [facility] [place]/22/2024 Katelyn Kamara Re : Upper GI endoscopy procedure for Jaycob Kamara This procedure was performed on Friday, November 22, 2024. My impressions and recommendations are as follows: Impressions : - Esophageal polyp(s) were found. Resected and retrieved. - Small hiatal hernia. - Erythematous mucosa in the gastric body. Biopsied. - Chronic duodenitis. Biopsied. Recommendations : - Discharge patient to home. - Resume previous diet. - Continue present medications. - Await pathology results. My findings are described in the full procedure note, which is enclosed. If I can be of further assistance, please feel free to contact me at . Sincerely, Juan Cazares DO 11/22/2024 1:24:49 PM This report has been signed electronically. 11/22/24 1325 Date Juan Suero Signature: Date (if indicated) CC: DRAWBENCH OPERATOR-C Katelyn Kamara; Juan Cazares DO Date Dictated: 11/22/24 1249 Date Transcribed: Customer Account Coordinator: NELLY Signed [facility] MR/POSTOP.[facility] 11-22-2024 MR/POSTOP.[facility] Medical Records Department [address] [place] [address] Anesthesia Postop Eval I 11/22/24 1305 MR#: [id number] Acct: [id number] Name: JAYCOB CRYSTAL Rep #: [id number] : 1960 63 From: Sheila Galeana CRNA PCP: Katelyn Kamara, DRAWBENCH OPERATOR-C [place] [facility] [place] Race[place] C Location: [place] [address] Anesthesia: Postop Eval I Current Vital Signs Temperature: 97 F Pulse Rate: 77 Blood Pressure: 96/68 Respiratory Rate: 14 Pulse Ox: 98 Oxygen Delivery Method: Room Air Assessment Airway patent: Yes Spontaneous unlabored respirations: Yes Mental status: Awake nausea: No Vomiting: No Anesthesia Complication: No Fluid Hydration Crystalloid volume administer (ml): 500 Total IV fluid infused: 500 Progress Note Anesthesia document: Postop Eval 1 completed: Yes 11/22/24 1328 Date Sheila Galeana RADIOTELEGRAPH OPERATOR Cosigner Signature: Date CC: Signed [facility] MR/PDKVOIEW8lz 11-22-2024 MR/POSTOPAN2 [facility] Medical Records Department [address] [place] [address] Anesthesia Postop Eval II 11/22/24 1508 MR#: [id number] Acct: [id number] Name: JAYCOB CRYSTAL Rep #: [id number] : 1960 63 From: Norris Franks MD PCP: Katelyn Kamara DRAWBENCH OPERATOR-C Status:[facility] Y Race: C Location: EN Anesthesia Postop Eval I Sum Postop Eval Completion status Anesthesia document: Postop Eval 1 completed: Yes Anesthesia Postop Eval I Summary Anesthesia Postop Eval I Summary: Anesthesia Postop Eval I: Assessment Summary Airway patent Yes 11/22/24 13:06 RADIOTELEGRAPH OPERATOR.HBARR Spontaneous unlabored Yes 11/22/24 13:06 RADIOTELEGRAPH OPERATOR.HBARR respirations Mental status Awake 11/22/24 13:06 RADIOTELEGRAPH OPERATOR.HBARR nausea No 11/22/24 13:06 RADIOTELEGRAPH OPERATOR.HBARR Vomiting No 11/22/24 13:06 RADIOTELEGRAPH OPERATOR.HBARR Anesthesia Postop Eval I: Fluid Summary Crystalloid volume administer 500 11/22/24 13:06 RADIOTELEGRAPH OPERATOR.HBARR (ml) Colloids volume administered ( ml) Blood Product volume administered (ml) Total IV fluid infused 500 11/22/24 13:06 RADIOTELEGRAPH OPERATOR.HBARR Anesthesia Postop Eval I: Summary Notes Anesthesia Complication No 11/22/24 13:06 RADIOTELEGRAPH OPERATOR.HBARR Anesthesia Complication Comment: Post-operative progress note Anesthesia: Postop Eval II Evaluation Mental status: Awake Pain Level: 1 nausea: No Vomiting: No Complications Anesthesia Complication: No 11/22/24 1508 Date Norris Franks MD Cosigner Signature: Date CC: Signed [facility] MR/PATGETon 11-08-2024 MR/PAT.[facility] Medical Records Department [address] [place] [address] PAT - Anesthesia 11/08/24 1546 MR#: [id number] Acct: [id number] Name: JAYCOB CRYSTAL Rep #: [id number] : 1960 63 From: Ole Booth MD PCP: IRIS Meier Status:PRE SDC Y Race: C Location: EN Pre-Assessment Diagnosis/Proposed Procedure Planned Operative Procedure(s): EGD/CSCOPE Anesthesia History Anesthesia History - needle control cheniller: Anesthesia History - needle control cheniller Hx Hospitalization Yes: 01/2024 FAINTED DUE TO 11/08/24 12:24 DEHYDRATION Any Problems With Anesthesia No 11/08/24 12:24 Cholinesterase deficiency No 11/08/24 12:24 You/Your Family Experience No 11/08/24 12:24 fever (hyperthermia) with Relationship Recent Exposure to Contagious Disease Does patient have nerve No 11/08/24 12:24 stimulator Patient instructed to have device shut off --Does patient have Pacemaker or ICD? When Was Last Pacemaker Check QUESTION #4 FULL TEXT: You/Your Family Experience fever (hyperthermia) with Anesthesia Last Oral Intake Last Oral intake: Last Oral Intake NPO since Meds taken in AM with sips of water? Meds patient instructed to take am of surgery PONV PONV - needle control cheniller: PONV - needle control cheniller Female No 11/08/24 12:24 HX of Motion Sickness No 11/08/24 12:24 HX of N/V After Surgery No 11/08/24 12:24 Non-Smoker Yes 11/08/24 12:24 Duration of Surgery greater No 11/08/24 12:24 than 60 minutes Number of Risk Factors 1 11/08/24 12:24 PONV Score Low Risk 11/08/24 12:24 Height Weight Height Weight: Anesthesia: Height Weight Height 5 ft 10 in 10/14/24 10:26 Respiratory Assessment Respiratory Assessment - needle control cheniller: Respiratory Tract Infection Hx - needle control cheniller Hx Respiratory Tract Infection No 11/08/24 12:24 STOP Sleep Apnea STOP Sleep Apnea - needle control cheniller: STOP Sleep Apnea - needle control cheniller Hx Hypertension No 11/08/24 12:24 Hx Sleep Apnea No 11/08/24 12:24 CPAP BIPAP Do you snore loudly (louder No 11/08/24 12:24 than talking or can be heard Do you often feel tired/ No 11/08/24 12:24 fatigued/ sleepy during daytime? Has anyone observed you stop No 11/08/24 12:24 breathing during sleep? STOP Results Negative 11/08/24 12:24 QUESTION #5 FULL TEXT : Do you snore loudly (louder than talking or can be heard through closed doors)? Tobacco Use History Tobacco Use History - needle control cheniller: Tobacco Use History - needle control cheniller Tobacco Use Smoking Status Never smoker 11/08/24 12:24 Hx Tobacco Use No 11/08/24 12:24 Years Smoking Packs Smoked per Day Smoking Cessation Date was within the last 15 years Hx Smoking Cessation Date Hx Smoking Cessation Counseling Hematologic Medial History Hematologic Hx - needle control cheniller: Hematologic Medical Hx - dog hair clipper Hx of Blood Transfusion No 11/08/24 12:24 Hx of Transfusion in last 3 No 11/08/24 12:24 Months Date of Last Transfusion (if within last 3 months) Ever experience any problems No 11/08/24 12:24 with transfusion(s)? Specify any problems Hx of Preganancy in last 3 N/A 11/08/24 12:24 Months Nurse Filling Out Transfusion DSCHRIBER 11/08/24 12:24 Questions: Date: 11/08/24 11/08/24 12:24 Time: 12:11/08/24 12:24 Patient unable to answer at this time (ie. confused, unrespo /Reproductio n History /Reproductiv e History - needle control cheniller: /Reproductiv e Hx- needle control cheniller Hx Now No 11/08/24 12:24 Gestational Age (in weeks): EDC: Hx Hx Para Hx Section SAB No 11/08/24 12:24 PFSH Medical History (Updated 11/08/24 @ 12:41 by Yulisa Mcnamara) Loss of consciousness History of echocardiogram Cardiology follow-up encounter Lives in assisted living facility Bladder disease Autism Anemia Suicide attempt Acute insomnia GERD (gastroesophageal reflux disease) Anxiety Depression Home Medications ???Medication ???Instructions ???Recorded ???Last Taken ???Type aripiprazole 5 mg tablet 7.5 mg PO DAILY mental health 07/20 Unknown History bupropion HCl 150 mg 24 hr tablet, 150 mg PO DAILY mental health Unknown History extended release ibuprofen 200 mg tablet (Advil) 400 mg PO Q6H PRN pain 02/01/24 Un known History meloxicam 7.5 mg tablet 7.5 mg PO DAILY PRN pain 02/01/24 Unknown History pantoprazole 40 mg tablet,delayed 40 mg PO DAILY reflux 02/01/24 Un known History release mirtazapine 7.5 mg tablet 7.5 mg PO QHS 10/14/24 Unknown His tory ondansetron 4 mg disintegrating 4 mg (more content not included)... [facility] Absolute lymphocyte countOrd ered By: Stephanie Jenkins on 10-14-2024 Lymphocytes Auto (Unsp spec) [#/Vol] 0.86 10*3/uL 0.83-4.51 [facility] Absolute neutrophil countOrd ered By: Stephanie Jenkins on 10-14-2024 Neutrophils (Bld) [#/Vol] 4.0 10*3/uL 2.0-7.7 [facility] Automated lymphocyte count a s percentage of total leukocytesOrdered By: Stephanie Jenkins on 10-14-2024 Lymphocytes/100 WBC Auto (Unsp spec) 15.8 % Low 19-41 [facility] Basophil percentageOrdered B y: Stephanie Jenkins on 10-14-2024 Basophils/100 WBC (Bld) 0.6 % 0-1 [facility] CBC W/Diff, Automatedon 08- Absolute Lymph 0.86 X10 3/uL Normal 0.83-4.51 [facility] Comment on above: Performed By: #### L 100.0100, L503.0106, L503.6030 ####[facility] [address] [place], [address] Absolute Neut 4.0 X10 3/uL Normal 2.0-7.7 [facility] Comment on above: Performed By: #### L 100.0100, L503.0106, L503.6030 ####[facility] [address] [place], [address] Basophils/100 WBC (Bld) 0.6 % Normal 0-1 [facility] Comment on above: Performed By: #### L 100.0100, L503.0106, L503.6030 ####[facility] [address] [place], [address] Eosinophils/100 WBC (Bld) 1.1 % Normal 0-5 [facility] Comment on above: Performed By: #### L 100.0100, L503.0106, L503.6030 ####[facility] [address] [place], [address] Erythrocyte distribution width (RBC) [Ratio] 12.3 % Normal 11.6-14.6 [facility] Comment on above: Performed By: #### L 100.0100, L503.0106, L503.6030 ####[facility] [address] [place], [address] Hematocrit (Bld) [Volume fraction] 39.0 % Low 40-54 [facility] Comment on above: Performed By: #### L 100.0100, L503.0106, L503.6030 ####[facility] [address] [place], [address] Hemoglobin (Bld) [Mass/Vol] 13.3 g/dL Normal 13.0-16.5 [facility] Comment on above: Performed By: #### L 100.0100, L503.0106, L503.6030 ####[facility] [address] [place], [address] IG% 0.600 Normal 0.0-0.9 [facility] Comment on above: Result Comment: IG% - Immature Granulocytes (promyelocytes, myelocytes and metamyelocytes) > 1% indicates that a LEFT SHIFT is Present. Performed By: #### L 100.0100, L503.0106, L503.6030 ####[facility] [address] [place], [address] Lymphocytes/100 WBC (Bld) 15.8 % Low 19-41 [facility] Comment on above: Performed By: #### L 100.0100, L503.0106, L503.6030 ####[facility] [address] [place], [address] MCH (RBC) [Entitic mass] 32.8 pg High 27.0-32.0 [facility] Comment on above: Performed By: #### L 100.0100, L503.0106, L503.6030 ####[facility] [address] [place], [address] MCHC (RBC) [Mass/Vol] 34.1 g/dL Normal 32-36 [facility] Comment on above: Performed By: #### L 100.0100, L503.0106, L503.6030 ####[facility] [address] [place], [address] MCV (RBC) [Entitic vol] 96.1 fL High 80-94 [facility] Comment on above: Performed By: #### L 100.0100, L503.0106, L503.6030 ####[facility] [address] [place], [address] Monocytes/100 WBC (Bld) 9.2 % Normal 0-10 [facility] Comment on above: Performed By: #### L 100.0100, L503.0106, L503.6030 ####[facility] [address] [place], [address] Neutrophils/100 WBC (Bld) 72.7 % High 47-70 [facility] Comment on above: Performed By: #### L 100.0100, L503.0106, L503.6030 ####[facility] [address] [place], [address] Nucleated RBC (Bld) [#/Vol] 0 10*3/uL Normal 0-5 [facility] Comment on above: Performed By: #### L 100.0100, L503.0106, L503.6030 ####[facility] [address] [place], [address] Platelet mean volume (Bld) [Entitic vol] 11.5 fL Normal 6.2-12.0 [facility] Comment on above: Performed By: #### L 100.0100, L503.0106, L503.6030 ####[facility] [address] [place], [address] Platelets (Bld) [#/Vol] 151 10*3/uL Normal 150-450 [facility] Comment on above: Performed By: #### L 100.0100, L503.0106, L503.6030 ####[facility] [address] [place], [address] RBC (Bld) [#/Vol] 4.06 10*6/uL Low 4.6-6.2 [facility] Comment on above: Performed By: #### L 100.0100, L503.0106, L503.6030 ####[facility] [address] [place], [address] RDW SD 42.8 fl Normal 35.1-43.9 [facility] Comment on above: Performed By: #### L 100.0100, L503.0106, L503.6030 ####[facility] [address] [place], [address] WBC (Bld) [#/Vol] 5.5 10*3/uL Normal 4.4-11.0 [facility] Comment on above: Performed By: #### L 100.0100, L503.0106, L503.6030 ####[facility] [address] [place], [address] Eosinophil percentageOrdered By: Stephanie Jenkins on 10-14-2024 Eosinophils/100 WBC (Bld) 1.1 % 0-5 [facility] Erythrocyte distribution wid th ratioOrdered By: Stephanie Jenkins on 10-14-2024 Erythrocyte distribution width (RBC) [Ratio] 12.3 % 11.6-14.6 [facility] Erythrocyte distribution wid th standard deviationOrdered By: Stephanie Jenkins on 10-14-2024 Erythrocyte distribution width (RBC) [Ratio] 42.8 fl 35.1-43.9 [facility] Gastroenterology Visit Repor ton 10-14-2024 Gastroenterology Visit Report [facility] [address] [place] [address] OFFICE VISIT Date of Service: 10/14/24 MR#: [id number] Acct: [id number] Name: JAYCOB CRYSTAL Rep #: [id number] : 1960 Provider: IRIS williamson Age/Sex: 63/M [place] [facility] [place]: Signed Intake Vital Signs 02/02/24 11:04 10/14/24 10:26 Height 5 ft 10 in 5 ft 10 in Weight: 148 lb 8 oz BMI 21.3 BP 98/66 Respiration 16 Pulse 96 Temp 93 F L Temp Source Temporal Pulse Oximetry (%) 93 Oxygen Delivery Method room air Intake Visit Reasons: Anemia/Reflux Chief Complaint: reflux Body Coverer Required: No Accompanied by: Self Is patient in pain?: No Allergies No Known Allergies Allergy (Verified 10/14/24 10:22) Medications ???Medication ???Instructions ???Recorded ???Confirmed ???Type acetaminophen 500 mg tablet 500 mg PO Q4H PRN pain 02/01/24 History (Tylenol Extra Strength) aripiprazole 5 mg tablet 5 mg PO DAILY mental health 10/14/24 History bupropion HCl 150 mg 24 hr tablet, 150 mg PO DAILY mental health 10/14/24 History extended release ibuprofen 200 mg tablet (Advil) 400 mg PO Q6H PRN pain 02/01/24 History meloxicam 7.5 mg tablet 7.5 mg PO DAILY PRN pain 02/01/24 10/14/24 History pantoprazole 40 mg tablet,delayed 40 mg PO DAILY reflux 02/01/24 History release mirtazapine 7.5 mg tablet 7.5 mg PO QDAY 10/14/24 10/14/24 H istory ondansetron 4 mg disintegrating 4 mg PO Q8H 10/14/24 10/14/24 Hist ory tablet peg 3350-sod sulf,ghnbv-stb-xuw See Rx Instructions PO .COMPLEX #2 10/14/24 10/14/24 Rx 178.7-7.3-0.5-1.12-0. 9 gram oral mL soln (Suflave) solifenacin 10 mg tablet 10 mg PO QDAY 10/14/24 10/14/24 Hi story tamsulosin 0.4 mg capsule 0.4 mg PO QDAY 10/14/24 10/14/24 H istory Have you fallen in the past year?: No PFSH Medical History Suicide attempt Gallstones Acute insomnia GERD (gastroesophageal reflux disease) Anxiety Depression Surgical History History of facial surgery History of surgery on lower extremity Hx of cholecystectomy Social History housing: apartment current occupational status: unemployed Smoking Status: Never smoker HPI HPI Chief Complaint: reflux Details: - never had a colonoscopy or EGD - taking pantoprazole and this helps - he lives alone - no longer drives - denies any heart or lung disease - denies any kidney disease - never been told he is a difficult intubation - Family history is significant for father with colon CA at 79y/o. - resides in assisted living The patient is a 63-year-old male presenting with a need for colonoscopy and endoscopy evaluation due to a family history of colon cancer and long-term management of reflux esophagitis. The patient reports that he has never had a colonoscopy before. There is a significant family history as the patient's father of colon cancer at the age of 79. The patient denies any personal history of colon polyps, change in bowel habits, blood in stools, or abdominal pain. He also denies any gastrointestinal symptoms such as heartburn, indigestion, nausea, or vomiting. The patient has a history of reflux, which has been managed with pantoprazole 40 mg daily, effectively controlling his symptoms. He denies any difficulty swallowing or history of esophageal or stomach cancer in his family. The patient also has a surgical history that includes cholecystectomy due to gallstones and facial reconstruction surgery following a suicide attempt, involving repair with seven plates. Additionally, the patient suffered a significant fracture to the left leg that required surgical intervention to ensure proper healing. He lives alone in an assisted living facility and has been receiving care from a nurse practitioner. The patient denies any alcohol use and has a non-smoking history. He does not drive any longer. Regarding his medical history, there is no history of heart, lung, kidney disease, or unexpected weight loss. The recent blood work indicated mild anemia, which was never previously identified, and the patient denies any symptoms such as chest pain, shortness of breath, black, or tarry stools. ROS Const Constitutional: No fatigue, fever(s) or weight change ENT ENT: No difficulty swallowing Gastro GI: No abdominal pain, belching, bloating, change in bowel habits, change in stool character, coffee ground emesis, constipation, cramping, diarrhea, heartburn, difficulty swallowing, feeling full early, excessive flatus, incontinent of stools, Vomiting blood/hematemesis, Blo (more content not included)... Normal [facility] Hematocrit Auto (Bld) [Volum e fraction]Ordered By: Stephanie Jenkins on 10-14-2024 Hematocrit (Bld) [Volume fraction] 39.0 % Low 40-54 [facility] Hemoglobin measurementOrdere d By: Stephanie Jenkins on 10-14-2024 Hemoglobin (Bld) [Mass/Vol] 13.3 g/dL 13.0-16.5 [facility] Immature granulocytes/100 WB C Auto (Bld)Ordered By: Stephanie Jenkins on 10-14-2024 Immature granulocytes/100 WBC (Bld) 0.600 % 0.0-0.9 [facility] Comment on above: IG% - Immature Granu locytes (promyelocytes, myelocytes and metamyelocytes) > 1% indicates that a LEFT SHIFT is Present. Iron measurement (mass/mass) Ordered By: Stephanie Jenkins on 10-14-2024 Iron (Unsp spec) [Mass/Mass] 78 ug/dL 65-175 [facility] Iron+Iron Binding Capacityon 10-14-2024 TIBC 209 ug/dL Low 250-450 [facility] Comment on above: Performed By: #### L 100.0100, L503.0106, L503.6030 ####[facility] [address] [place], [address] MCV (mean corpuscular volume ) determinationOrdered By: tSephanie Jenkins on 10-14-2024 MCV (RBC) [Entitic vol] 96.1 fL High 80-94 [facility] Mean corpuscular hemoglobin (MCH) determinationOrdered By: Stephanie Jenkins on 10-14-2024 MCH (RBC) [Entitic mass] 32.8 pg High 27.0-32.0 [facility] Mean corpuscular hemoglobin concentration (MCHC) determinationOrdered By: Stephanie Jenkins on 10-14-2024 MCHC (RBC) [Mass/Vol] 34.1 g/dL 32-36 [facility] Mean platelet volume determi nationOrdered By: Stephanie Jenkins on 10-14-2024 Platelet mean volume (Bld) [Entitic vol] 11.5 fL 6.2-12.0 [facility] Monocyte percentageOrdered B y: Stephanie Jenkins on 10-14-2024 Monocytes/100 WBC (Bld) 9.2 % 0-10 [facility] Neutrophil percentageOrdered By: Stephanie Jenkins on 10-14-2024 Neutrophils/100 WBC (Bld) 72.7 % High 47-70 [facility] No Panel InformationOrdered By: Stephanie Jenkins on 10-14-2024 Unsaturated Iron Binding Capacity 131 ug/dL Low 228-428 [facility] Nucleated red blood cell per centageOrdered By: Stephanie Jenkins on 10-14-2024 Nucleated RBC/100 WBC (Bld) [Ratio] 0 % 0-5 [facility] Platelet countOrdered By: Rc Jenkins on 10-14-2024 Platelets (Bld) [#/Vol] 151 10*3/uL 150-450 [facility] RBC Auto (Bld) [#/Vol]Ordere d By: Stephanie Jenkins on 10-14-2024 RBC (Bld) [#/Vol] 4.06 10*6/uL Low 4.6-6.2 [facility] Serum or plasma iron saturat ion measurement (mass fraction)Ordered By: Stephanie Jenkins on 10-14-2024 Iron saturation [Mass fraction] 37.3 % 9-55 [facility] Comment on above: Previous reported re sult: 37.0 %Edited by: SAMREEN on 10/14/24:1243 AMENDED REPORT 10/14/24 1243 IRON SATURATION previously reported as: 37.0 % Vitamin B12on 10-14-2024 Cobalamin (Vitamin B12) [Mass/Vol] 871 pg/mL Normal 180-914 [facility] Comment on above: Performed By: #### L 100.0100, L503.0106, L503.6030 ####[facility] [address] [place], [address] Vitamin B12 ser/plasOrdered By: Stephanie Jenkins on 10-14-2024 Cobalamin (Vitamin B12) [Mass/Vol] 871 pg/mL 180-914 [facility] White blood cell (WBC) count Ordered By: Stephanie Jenkins on 10-14-2024 WBC (Bld) [#/Vol] 5.5 10*3/uL 4.4-11.0 [facility] Discharge Instructionon 0 Discharge Instruction [facility] Medical Records Department [address] [place] [address] Instructions for Home/Discharge Instructions 02/04/24 1209 MR#: [id number] Acct: [id number] Name: JAYCOB CRYSTAL Rep #: [id number] : 1960 63 From: Yan Pan DO PCP: Care Physician,No Primary Status:ADM IN Discharge Instructions Diet Discharge Diet: No restrictions DC O2, CPAP, BIPAP needs Additional Home O2 Discharge instructions: No Dressing / Incision Discharge Activity: No Restrictions Follow Up Care Test Results: Test results from this visit will be discussed in further detail at your follow-up appointment, if applicable. Discharge Plan Admission Admit Date/Time: 02/01/24 18:40 Primary Reason for Your Visit: episode of passing out with dehydration Attending Provider: Yan Pan Primary Care Provider: Care Physician,No Primary Consulting Providers: Tasha Queen; Landen Adorno; Chucho Meyer Instructions Additional Instructions / Restrictions: Please stop taking donepezil and Paxil. Continue all other home medications as noted below. Follow-up with your primary care doctor as needed. Discharge Orders/Prescriptions Prescriptions: Continued meloxicam 7.5 mg tablet 7.5 mg PO DAILY PRN (Reason: pain) trazodone 100 mg tablet 100 mg PO QHS pantoprazole 40 mg tablet,delayed release (DR/EC) 40 mg PO DAILY aripiprazole 5 mg tablet 5 mg PO DAILY bupropion HCl 150 mg tablet extended release 24 hr 150 mg PO DAILY acetaminophen [Tylenol Extra Strength] 500 mg tablet 500 mg PO Q4H PRN (Reason: pain) ibuprofen [Advil] 200 mg tablet 400 mg PO Q6H PRN (Reason: pain) Discontinued paroxetine HCl [Paxil] 30 mg tablet 30 mg PO DAILY Qty: 14 0RF donepezil 5 mg tablet 5 mg PO QHS Referrals / Follow Up: Care Physician,No Primary [Primary Care Provider] - Christian Quintero DRAWBENCH OPERATOR, DRAWBENCH OPERATOR-C [Non-Staff] - Disposition Disposition (needs filled in before D/C Order can be placed): Assisted Living 02/04/24 1222 Yan Pan DO CC: Dr. Chucho Meyer MD; Dr. Landen Adorno MD; Dr. Tasha Queen MD; No Primary Care Physician Signed Normal [facility] Basic Metabolic Profile (BMP )on 02-03-2024 BUN/CRE 12.4 RATIO Normal 10-20 [facility] Comment on above: Performed By: #### L 100.0500, L500.2500 ####[facility] [address] [place], [address] CA,Total 8.9 mg/dL Normal 8.5-10.1 [facility] Comment on above: Performed By: #### L 100.0500, L500.2500 ####[facility] [address] [place], [address] Chloride [Moles/Vol] 104 mmol/L Normal 98-107 [facility] Comment on above: Performed By: #### L 100.0500, L500.2500 ####[facility] [address] [place], [address] CO2 [Moles/Vol] 33.0 mmol/L High 21.0-32.0 [facility] Comment on above: Performed By: #### L 100.0500, L500.2500 ####[facility] [address] [place], [address] Creatinine [Mass/Vol] 1.13 mg/dL Normal 0.70-1.30 [facility] Comment on above: Result Comment: The validity of the calculated GFR GFRAA in patients over 70 years has not been determined. Clinical correlation is essential. Performed By: #### L 100.0500, L500.2500 ####[facility] [address] [place], [address] ECRCL 55.22 ml/min Normal [facility] Comment on above: Performed By: #### L 100.0500, L500.2500 ####[facility] [address] [place], [address] EST GFR - AA 84 mL/min Normal >60 [facility] Comment on above: Result Comment: Afri can Palestinian GFR Calc Performed By: #### L 100.0500, L500.2500 ####[facility] [address] [place], [address] GAP 5 Normal 5-15 [facility] Comment on above: Performed By: #### L 100.0500, L500.2500 ####[facility] [address] [place], [address] GFR/1.73 sq M.predicted among non-blacks MDRD (S/P/Bld) [Vol rate/Area] 69 mL/min/{1.73_m2} Normal >60 [facility] Comment on above: Result Comment: Non- GFR Calc Performed By: #### L 100.0500, L500.2500 ####[facility] [address] [place], [address] Glucose [Mass/Vol] 91 mg/dL Normal 74-106 [facility] Comment on above: Performed By: #### L 100.0500, L500.2500 ####[facility] [address] [place], [address] Potassium [Moles/Vol] 4.0 mmol/L Normal 3.5-5.1 [facility] Comment on above: Performed By: #### L 100.0500, L500.2500 ####[facility] [address] [place], [address] Sodium [Moles/Vol] 141 mmol/L Normal 136-145 [facility] Comment on above: Performed By: #### L 100.0500, L500.2500 ####[facility] [address] [place], [address] Urea nitrogen [Mass/Vol] 14 mg/dL Normal 7-18 [facility] Comment on above: Performed By: #### L 100.0500, L500.2500 ####[facility] [address] [place], [address] CBC-Complete Blood Cnt No Di ffon 02-03-2024 Erythrocyte distribution width (RBC) [Ratio] 12.4 % Normal 11.6-14.6 [facility] Comment on above: Performed By: #### L 100.0500, L500.2500 ####[facility] [address] [place], [address] Hematocrit (Bld) [Volume fraction] 38.4 % Low 40-54 [facility] Comment on above: Performed By: #### L 100.0500, L500.2500 ####[facility] [address] [place], [address] Hemoglobin (Bld) [Mass/Vol] 12.9 g/dL Low 13.0-16.5 [facility] Comment on above: Performed By: #### L 100.0500, L500.2500 ####[facility] [address] [place], [address] MCH (RBC) [Entitic mass] 33.7 pg High 27.0-32.0 [facility] Comment on above: Performed By: #### L 100.0500, L500.2500 ####[facility] [address] [place], [address] MCHC (RBC) [Mass/Vol] 33.6 g/dL Normal 32-36 [facility] Comment on above: Performed By: #### L 100.0500, L500.2500 ####[facility] [address] [place], [address] MCV (RBC) [Entitic vol] 100.3 fL High 80-94 [facility] Comment on above: Performed By: #### L 100.0500, L500.2500 ####[facility] [address] [place], [address] Platelet mean volume (Bld) [Entitic vol] 11.2 fL Normal 6.2-12.0 [facility] Comment on above: Performed By: #### L 100.0500, L500.2500 ####[facility] [address] [place], [address] Platelets (Bld) [#/Vol] 145 10*3/uL Low 150-450 [facility] Comment on above: Performed By: #### L 100.0500, L500.2500 ####[facility] [address] [place], [address] RBC (Bld) [#/Vol] 3.83 10*6/uL Low 4.6-6.2 [facility] Comment on above: Performed By: #### L 100.0500, L500.2500 ####[facility] [address] [place], [address] RDW SD 45.9 fl High 35.1-43.9 [facility] Comment on above: Performed By: #### L 100.0500, L500.2500 ####[facility] [address] [place], [address] WBC (Bld) [#/Vol] 5.2 10*3/uL Normal 4.4-11.0 [facility] Comment on above: Performed By: #### L 100.0500, L500.2500 ####[facility] [address] [place], [address] Basic Metabolic Profile (BMP )on 02-02-2024 BUN/CRE 14.6 RATIO Normal 10-20 [facility] Comment on above: Performed By: #### L 500.2500, L501.9520, L100.0100 #### [facility] [address] [place], [address] CA,Total 8.2 mg/dL Low 8.5-10.1 [facility] Comment on above: Performed By: #### L 500.2500, L501.9520, L100.0100 #### [facility] [address] [place], [address] Chloride [Moles/Vol] 108 mmol/L High 98-107 [facility] Comment on above: Performed By: #### L 500.2500, L501.9520, L100.0100 #### [facility] [address] [place], [address] CO2 [Moles/Vol] 29.0 mmol/L Normal 21.0-32.0 [facility] Comment on above: Performed By: #### L 500.2500, L501.9520, L100.0100 #### [facility] [address] [place], [address] Creatinine [Mass/Vol] 1.03 mg/dL Normal 0.70-1.30 [facility] Comment on above: Result Comment: The validity of the calculated GFR GFRAA in patients over 70 years has not been determined. Clinical correlation is essential. Performed By: #### L 500.2500, L501.9520, L100.0100 #### [facility] [address] [place], [address] ECRCL 60.58 ml/min Normal [facility] Comment on above: Performed By: #### L 500.2500, L501.9520, L100.0100 #### [facility] [address] [place], [address] EST GFR - AA 93 mL/min Normal >60 [facility] Comment on above: Result Comment: Afri can Palestinian GFR Calc Performed By: #### L 500.2500, L501.9520, L100.0100 #### [facility] [address] [place], [address] GAP 4 Low 5-15 [facility] Comment on above: Performed By: #### L 500.2500, L501.9520, L100.0100 #### [facility] [address] [place], [address] GFR/1.73 sq M.predicted among non-blacks MDRD (S/P/Bld) [Vol rate/Area] 77 mL/min/{1.73_m2} Normal >60 [facility] Comment on above: Result Comment: Non- GFR Calc Performed By: #### L 500.2500, L501.9520, L100.0100 #### [facility] [address] [place], [address] Glucose [Mass/Vol] 106 mg/dL Normal 74-106 [facility] Comment on above: Result Comment: Fast ing Glucose result from 100 to 125 mg/dL suggests IMPAIRED HOMEOSTASIS per A.D.A. criteria. Performed By: #### L 500.2500, L501.9520, L100.0100 #### [facility] [address] [place], [address] Potassium [Moles/Vol] 3.6 mmol/L Normal 3.5-5.1 [facility] Comment on above: Performed By: #### L 500.2500, L501.9520, L100.0100 #### [facility] [address] [place], [address] Sodium [Moles/Vol] 141 mmol/L Normal 136-145 [facility] Comment on above: Performed By: #### L 500.2500, L501.9520, L100.0100 #### [facility] [address] [place], [address] Urea nitrogen [Mass/Vol] 15 mg/dL Normal 7-18 [facility] Comment on above: Performed By: #### L 500.2500, L501.9520, L100.0100 #### [facility] [address] [place], [address] CBC W/Diff, Automatedon 12-0 6-4 Absolute Lymph 0.86 X10 3/uL Normal 0.83-4.51 [facility] Comment on above: Performed By: #### L 500.2500, L501.9520, L100.0100 #### [facility] [address] [place], [address] Absolute Neut 4.2 X10 3/uL Normal 2.0-7.7 [facility] Comment on above: Performed By: #### L 500.2500, L501.9520, L100.0100 #### [facility] [address] [place] [place], [address] Basophils/100 WBC (Bld) 0.3 % Normal 0-1 [facility] Comment on above: Performed By: #### L 500.2500, L501.9520, L100.0100 #### [facility] [address] [place], [address] Eosinophils/100 WBC (Bld) 2.0 % Normal 0-5 [facility] Comment on above: Performed By: #### L 500.2500, L501.9520, L100.0100 #### [facility] [address] [place], [address] Erythrocyte distribution width (RBC) [Ratio] 12.4 % Normal 11.6-14.6 [facility] Comment on above: Performed By: #### L 500.2500, L501.9520, L100.0100 #### [facility] [address] [place], [address] Hematocrit (Bld) [Volume fraction] 33.9 % Low 40-54 [facility] Comment on above: Performed By: #### L 500.2500, L501.9520, L100.0100 #### [facility] [address] [place], [address] Hemoglobin (Bld) [Mass/Vol] 11.5 g/dL Low 13.0-16.5 [facility] Comment on above: Performed By: #### L 500.2500, L501.9520, L100.0100 #### [facility] [address] [place], [address] IG% 0.300 Normal 0.0-0.9 [facility] Comment on above: Result Comment: IG% - Immature Granulocytes (promyelocytes, myelocytes and metamyelocytes) > 1% indicates that a LEFT SHIFT is Present. Performed By: #### L 500.2500, L501.9520, L100.0100 #### [facility] [address] [place], [address] Lymphocytes/100 WBC (Bld) 14.5 % Low 19-41 [facility] Comment on above: Performed By: #### L 500.2500, L501.9520, L100.0100 #### [facility] [address] [place], [address] MCH (RBC) [Entitic mass] 33.6 pg High 27.0-32.0 [facility] Comment on above: Performed By: #### L 500.2500, L501.9520, L100.0100 #### [facility] [address] [place], [address] MCHC (RBC) [Mass/Vol] 33.9 g/dL Normal 32-36 [facility] Comment on above: Performed By: #### L 500.2500, L501.9520, L100.0100 #### [facility] [address] [place], [address] MCV (RBC) [Entitic vol] 99.1 fL High 80-94 [facility] [facility] Comment on above: Performed By: #### L 500.2500, L501.9520, L100.0100 #### [facility] [address] [place], [address] Monocytes/100 WBC (Bld) 12.6 % High 0-10 [facility] Comment on above: Performed By: #### L 500.2500, L501.9520, L100.0100 #### [facility] [address] [place], [address] Neutrophils/100 WBC (Bld) 70.3 % High 47-70 [facility] Comment on above: Performed By: #### L 500.2500, L501.9520, L100.0100 #### [facility] [address] [place], [address] Nucleated RBC (Bld) [#/Vol] 0 10*3/uL Normal 0-5 [facility] Comment on above: Performed By: #### L 500.2500, L501.9520, L100.0100 #### [facility] [address] [place], [address] Platelet mean volume (Bld) [Entitic vol] 11.8 fL Normal 6.2-12.0 [facility] Comment on above: Performed By: #### L 500.2500, L501.9520, L100.0100 #### [facility] [address] [place], [address] Platelets (Bld) [#/Vol] 149 10*3/uL Low 150-450 [facility] Comment on above: Performed By: #### L 500.2500, L501.9520, L100.0100 #### [facility] [address] [place], [address] RBC (Bld) [#/Vol] 3.42 10*6/uL Low 4.6-6.2 [facility] Comment on above: Performed By: #### L 500.2500, L501.9520, L100.0100 #### [facility] [address] [place], [address] RDW SD 45.1 fl High 35.1-43.9 [facility] Comment on above: Performed By: #### L 500.2500, L501.9520, L100.0100 #### [facility] [address] [place], [address] WBC (Bld) [#/Vol] 5.9 10*3/uL Normal 4.4-11.0 [facility] Comment on above: Performed By: #### L 500.2500, L501.9520, L100.0100 #### [facility] [address] [place], [address] Consultation - Cardiologyon 02-02-2024 Consultation - Cardiology [facility] Medical Records Department [address] [place] [address] Consultation - Cardiology 02/02/24 0948 MR#: [id number] Acct: [id number] Name: JAYCOB CRYSTAL Rep #: [id number] : 1960 63 From: Landen Adorno MD PCP: Care Physician,No Primary Status:ADM IN Location: [place] [address] Assessment Plan Assessment/Plan (1) Syncope: QUALIFIERS: Syncope type: unspecified Qualified Code(s): R55 - Syncope and collapse PLAN: Patient had an episode of syncope earlier this week where he did not have any trauma. He then had an episode yesterday where he actually fell and hit his head creating a facial laceration. The patient was admitted to the hospital severely dehydrated. He was rehydrated and his creatinine is now normalized. He had an episode of sinus arrest/pause of 3.6 seconds that was asymptomatic this morning sitting on the side of the bed. The patient is status post remote closed head injury at a suicide attempt 25 years ago. He also is on multiple behavioral health modifying medications but none of which that I can find are associated with heart block. They are all associated with dizziness. From a cardiovascular standpoint I recommend we will continue to monitor him for another 24 to 48 hours to see if he has symptomatic pauses. If he does would have to consider permanent pacemaker implantation. (2) DAMARIS (acute kidney injury): PLAN: Patient is acute kidney injury appears to be related to dehydration. He reports that he is anorexic has no appetite. Consideration may be given for further behavioral health evaluation given his past medical history. (3) Head injury: QUALIFIERS: Encounter type: subsequent encounter Qualified Code(s): S09.90XD - Unspecified injury of head, subsequent encounter PLAN: Patient status post remote closed head injury. I am not certain if this has any bearing on his cardiovascular rhythms. PLAN: Plan 1. Will continue to monitor on telemetry and increase activity as tolerated for the next 24 to 48 hours. 2. Would recommend considering behavioral health evaluation given the patient's past histories. HPI Consult Data Date of Consult: 02/02/24 HPI Narrative Reason for Consultation: 3.6-second sinus pause and history of syncope. HPI Narrative: JAYCOB CRYSTAL, is a 63 M who presents with a history of syncope where he was walking to his apartment door to let someone in and he woke up on the floor with a head injury. Patient presented to emergency department where he was felt to be profoundly dehydrated with elevated creatinines. Patient was resuscitated with volume and his creatinine has returned to normal at 1.03. The patient reports that earlier this week he had an episode where he got very lightheaded and fell to the floor but did not hurt himself. He also reports that he has been profoundly anorexic and has lost all of his appetite for over a year. The patient also has a history of remote suicide attempt 25 years ago. The telemetry showed a 3.6-second sinus pause with spontaneous recovery when the patient was seated on the side of the bed. He denies any symptoms with this sinus pause. Patient has no prior cardiac history he has no family history of coronary artery disease he denies any history of hypertension hyperlipidemia has never smoked and he is not diabetic. The patient's medications include multiple behavioral health modifying drugs including Aricept and multiple antidepressants. [facility] Medical History Acute insomnia GERD (gastroesophageal reflux disease) Anxiety Depression Home Medications ???Medication ???Instructions ???Recorded ???Last Taken ???Type paroxetine HCl 30 mg tablet (Paxil) 30 mg PO DAILY pt states does not 08/05/22 Unknown Rx take #14 tabs acetaminophen 500 mg tablet 500 mg PO Q4H PRN pain 02/01/24 Unknown History (Tylenol Extra Strength) aripiprazole 5 mg tablet 5 mg PO DAILY 02/01/24 Unknown History bupropion HCl 150 mg 24 hr tablet, 150 mg PO DAILY 02/01/24 Unknown History extended release ibuprofen 200 mg tablet (Advil) 400 mg PO Q6H PRN pain 02/01/24 Unknown History meloxicam 7.5 mg tablet 7.5 mg PO DAILY PRN pain 02/01/24 Unknown History pantoprazole 40 mg tablet,delayed 40 mg PO DAILY 02/01/24 Unknown History release trazodone 100 mg tablet 100 mg PO QHS 02/01/24 Unknown History donepezil 5 mg tablet 5 mg PO QHS dementia 02/02/24 Unknown History Allergy/AdvReac Type Severity Reaction Status Date / Time No Known Allergies Allergy Verified 02/01/24 15:41 Social History housing: apartment current occupational status: unemployed Smoking Status: Unknown if ever smoked ROS Constitutional Constitutional: Reports as per HPI Eyes Eyes: Reports systems (more content not included)... [facility] Thyroid Stim Hormone (TSH)on 02-02-2024 TSH 1.080 uIU/mL Normal 0.358-3.740 [facility] Comment on above: Performed By: #### L 500.2500, L501.9520, L100.0100 #### [facility] [address] [place], [address] 12 Lead EKGon 02-01-[address] [facility] Cardiovascular Services [address] [place] [address] 12 Lead EKG 02/01/24 1648 MR#: [id number] Acct: [id number] Name: JAYCOB CRYSTAL Rep #: [id number] : 1960 63 From: Landen Adorno MD Attending Dr: Dr. Chucho Meyer MD Status: ADM IN Ordering Dr: Romina Fernandez Date: 02/01/24 Location: [facility] Sex: M C Admitted: 02/01/24 Test Reason : SYNC Blood Pressure : */* mmHG Vent. Rate : 67 BPM Atrial Rate : 67 BPM P-R Int : 142 ms QRS Dur : 84 ms QT Int : 418 ms P-R-T Axes : 76 86 83 degrees QTcB Int : 441 ms Normal sinus rhythm Nonspecific T wave abnormality Abnormal ECG Confirmed by Landen Adorno ([id number]), brands editor ARABELLA MITCHELL ([id number]) on 02/02/2024 1:41:32 PM Referred By: Rambo Mora Confirmed By: Landen Adorno 02/02/24 1341 Date Landen Adorno MD CC: Dr. Chucho Meyer MD; Dr. Rambo Mora DO; PAXTON Sheridan; No Primary Care Physician Signed [facility] Basic Metabolic Profile (BMP )on 02-01-2024 BUN/CRE 12.9 RATIO Normal 10-20 [facility] Comment on above: Order Comment: 1Y Performed By: #### L 100.0100, L500.2500, L501.5425 ####[facility] [address] [place], [address] CA,Total 9.3 mg/dL Normal 8.5-10.1 [facility] Comment on above: Order Comment: 1Y Performed By: #### L 100.0100, L500.2500, L501.5425 ####[facility] [address] [place], [address] Chloride [Moles/Vol] 99 mmol/L Normal 98-107 [facility] Comment on above: Order Comment: 1Y Performed By: #### L 100.0100, L500.2500, L501.5425 ####[facility] [address] [place], [address] CO2 [Moles/Vol] 31.0 mmol/L Normal 21.0-32.0 [facility] Comment on above: Order Comment: 1Y Performed By: #### L 100.0100, L500.2500, L501.5425 ####[facility] [address] [place], [address] Creatinine [Mass/Vol] 1.71 mg/dL High 0.70-1.30 [facility] Comment on above: Order Comment: 1Y Result Comment: The validity of the calculated GFR GFRAA in patients over 70 years has not been determined. Clinical correlation is essential. Performed By: #### L 100.0100, L500.2500, L501.5425 ####[facility] [address] [place], [address] ECRCL 36.47 ml/min [facility] Comment on above: Order Comment: 1Y Performed By: #### L 100.0100, L500.2500, L501.5425 ####[facility] [address] [place], [address] EST GFR - AA 52 mL/min Low >60 [facility] Comment on above: Order Comment: 1Y Result Comment: Afri can Palestinian GFR Calc Performed By: #### L 100.0100, L500.2500, L501.5425 ####[facility] [address] [place], [address] GAP 7 Normal 5-15 [facility] Comment on above: Order Comment: 1Y Performed By: #### L 100.0100, L500.2500, L501.5425 ####[facility] [address] [place], [address] GFR/1.73 sq M.predicted among non-blacks MDRD (S/P/Bld) [Vol rate/Area] 43 mL/min/{1.73_m2} Low >60 [facility] Comment on above: Order Comment: 1Y Result Comment: Non- GFR Calc Performed By: #### L 100.0100, L500.2500, L501.5425 ####[facility] [address] [place], [address] Glucose [Mass/Vol] 165 mg/dL High 74-106 [facility] Comment on above: Order Comment: 1Y Result Comment: Fast ing Glucose result greater than or equal to 126 mg/dL suggests DIABETES MELLITUS per A.D.A. criteria. Performed By: #### L 100.0100, L500.2500, L501.5425 ####[facility] [address] [place], [address] Potassium [Moles/Vol] 4.0 mmol/L Normal 3.5-5.1 [facility] Comment on above: Order Comment: 1Y Performed By: #### L 100.0100, L500.2500, L501.5425 ####[facility] [address] [place], [address] Sodium [Moles/Vol] 137 mmol/L Normal 136-145 [facility] Comment on above: Order Comment: 1Y Performed By: #### L 100.0100, L500.2500, L501.5425 ####[facility] [address] [place], [address] Urea nitrogen [Mass/Vol] 22 mg/dL High 7-18 [facility] Comment on above: Order Comment: 1Y Performed By: #### L 100.0100, L500.2500, L501.5425 ####[facility] [address] [place], [address] Brain/Head without Contrasto n 02-01-2024 Brain/Head without Contrast [facility] Imaging Services [address] [place] [address] Brain/Head without Contrast MR#: [id number] Acct: [id number] Name: JAYCOB CRYSTAL Rep #: [id number] : 1960 Heriberto Pena From: Levi Jenkins DO PCP: IRIS Vincent Status: PRE ER Study: Brain/Head without Contrast Date of Exam: 07/20 Exam# [id number] Ordering Dr: Romina Fernandez [id number] STUDY: CT BRAIN WITHOUT CONTRAST REASON FOR EXAM: Male, 63 years old. head injury RADIATION DOSAGE (If Supplied By Facility): CTDIvol = ( 44.99 ) mGy, DLP = ( 846.7 ) mGycm TECHNIQUE: Transaxial CT imaging of the brain was performed without administration of intravenous contrast material. Individualized dose optimization techniques were used for this CT. COMPARISON: No relevant priors. FINDINGS: Right frontal scalp injury. Normal calvarium. Normal size ventricles and extra-axial spaces for the patient''s age. Normal white matter tracts of the cerebral hemispheres. Normal basal ganglia and thalami. Normal brainstem. Normal cerebellum. There is no intracranial hemorrhage. There are no findings of an acute ischemic infarction. Normal visualized paranasal sinuses. CT/Brain/Head without Contrast IMPRESSION: No acute intracranial pathology of the brain. Electronically Signed: Levi Jenkins DO at 16:39 EST Reading Location ID and State: [facility] / [place] Tel [phone], Service support , CC: IRIS Quintero; PAXTON Sheridan Customer Account Coordinator: Signed [facility] CBC W/Diff, Automatedon 12-0 Absolute Lymph 0.56 X10 3/uL Low 0.83-4.51 [facility] Comment on above: Performed By: #### L 100.0100, L500.2500, L501.5425 #### [facility] [address] [place], [address] Absolute Neut 4.9 X10 3/uL Normal 2.0-7.7 [facility] Comment on above: Performed By: #### L 100.0100, L500.2500, L501.5425 #### [facility] [address] [place] [place], [address] Basophils/100 WBC (Bld) 0.7 % Normal 0-1 [facility] Comment on above: Performed By: #### L 100.0100, L500.2500, L501.5425 #### [facility] [address] [place], [address] Eosinophils/100 WBC (Bld) 0.7 % Normal 0-5 [facility] Comment on above: Performed By: #### L 100.0100, L500.2500, L501.5425 #### [facility] [address] [place], [address] Erythrocyte distribution width (RBC) [Ratio] 12.2 % Normal 11.6-14.6 [facility] Comment on above: Performed By: #### L 100.0100, L500.2500, L501.5425 #### [facility] [address] [place], [address] Hematocrit (Bld) [Volume fraction] 43.0 % Normal 40-54 [facility] Comment on above: Performed By: #### L 100.0100, L500.2500, L501.5425 #### [facility] [address] [place], [address] Hemoglobin (Bld) [Mass/Vol] 14.7 g/dL Normal 13.0-16.5 [facility] Comment on above: Performed By: #### L 100.0100, L500.2500, L501.5425 #### [facility] [address] [place], [address] IG% 0.500 Normal 0.0-0.9 [facility] Comment on above: Result Comment: IG% - Immature Granulocytes (promyelocytes, myelocytes and metamyelocytes) > 1% indicates that a LEFT SHIFT is Present. Performed By: #### L 100.0100, L500.2500, L501.5425 #### [facility] [address] [place], [address] Lymphocytes/100 WBC (Bld) 9.4 % Low 19-41 [facility] Comment on above: Performed By: #### L 100.0100, L500.2500, L501.5425 #### [facility] [address] [place], [address] MCH (RBC) [Entitic mass] 33.7 pg High 27.0-32.0 [facility] Comment on above: Performed By: #### L 100.0100, L500.2500, L501.5425 #### [facility] [address] [place], [address] MCHC (RBC) [Mass/Vol] 34.2 g/dL Normal 32-36 [facility] Comment on above: Performed By: #### L 100.0100, L500.2500, L501.5425 #### [facility] [address] [place], [address] MCV (RBC) [Entitic vol] 98.6 fL High 80-94 [facility] Comment on above: Performed By: #### L 100.0100, L500.2500, L501.5425 #### [facility] [address] [place], [address] Monocytes/100 WBC (Bld) 6.9 % Normal 0-10 [facility] Comment on above: Performed By: #### L 100.0100, L500.2500, L501.5425 #### [facility] [address] [place], [address] Neutrophils/100 WBC (Bld) 81.8 % High 47-70 [facility] Comment on above: Performed By: #### L 100.0100, L500.2500, L501.5425 #### [facility] [address] [place], [address] Nucleated RBC (Bld) [#/Vol] 0 10*3/uL Normal 0-5 [facility] Comment on above: Performed By: #### L 100.0100, L500.2500, L501.5425 #### [facility] [address] [place], [address] Platelet mean volume (Bld) [Entitic vol] 11.7 fL Normal 6.2-12.0 [facility] Comment on above: Performed By: #### L 100.0100, L500.2500, L501.5425 #### [facility] [address] [place], [address] Platelets (Bld) [#/Vol] 209 10*3/uL Normal 150-450 [facility] Comment on above: Performed By: #### L 100.0100, L500.2500, L501.5425 #### [facility] [address] [place], [address] RBC (Bld) [#/Vol] 4.36 10*6/uL Low 4.6-6.2 [facility] Comment on above: Performed By: #### L 100.0100, L500.2500, L501.5425 #### [facility] [address] [place], [address] RDW SD 44.7 fl High 35.1-43.9 [facility] Comment on above: Performed By: #### L 100.0100, L500.2500, L501.5425 #### [facility] [address] [place], [address] WBC (Bld) [#/Vol] 5.9 10*3/uL Normal 4.4-11.0 [facility] Comment on above: Performed By: #### L 100.0100, L500.2500, L501.5425 #### [facility] [address] [place], [address] Chest PA and Lateralon 01-31 Chest PA and Lateral [facility] Imaging Services [address] [place] [address] Chest PA and Lateral MR#: [id number] Acct: [id number] Name: JAYCOB CRYSTAL Rep #: [id number] : 1960 M 63 From: Levi Jenkins DO PCP: Care Physician,No Primary Status: [facility] ER Study: Chest PA and Lateral Date of Exam: 02/01/24 Exam# [id number] Ordering Dr: Romina Fernandez [id number] INDICATION: chest pain EXAMINATION/TECHNIQUE : X-RAY - XR Chest 2 Views COMPARISON: __ FINDINGS: LINES/DEVICES: None. LUNGS: Hyperaeration. No consolidation, edema or effusion. No pneumothorax. MEDIASTINUM AND CARDIOVASCULAR STRUCTURES: Cardiac silhouette not enlarged. Central airways and mediastinal contour are unremarkable. BONES AND SOFT TISSUES: Unremarkable. RAD/Chest PA and Lateral IMPRESSION: Hyperaeration. Electronically Signed: Levi Jenkins DO at 17:36 EST , CC: PAXTON Sheridan; No Primary Care Physician Customer Account Coordinator: Signed [facility] Echo Completeon 02-01-2024 Echo Complete [facility] [place] [address] Echo Complete 02/02/24 1112 MR#: [id number] Acct: [id number] Name: JAYCOB CRYSTAL Rep #: [id number] : 1960 63 From: Ross Espitia MD Attending Dr: Dr. Chucho Meyer MD Status: ADM IN Ordering Dr: Tasha Queen MD Date: 02/01/24 Location: [facility] Sex: M C Admitted: 02/01/24 Reason For Study: SYNCOPE Procedure This was a 2D Doppler, Color Flow transthoracic echocardiogram. Exam performed portable in patient room. Left Ventricle Normal LV size. Apical false tendon noted. Left ventricular systolic function is normal. The left ventricular ejection fraction is 60 %. No regional wall motion abnormalities noted. Right Ventricle Normal RV size. Normal systolic function. Atria Normal left atrium. Mitral Valve Normal mitral valve. Tricuspid Valve Normal tricuspid valve. Aortic Valve Normal aortic valve. Pulmonic Valve Normal pulmonic valve. Great Vessels Normal aortic root. The pulmonary artery is normal size. Normal inferior vena cava. Pericardium/Pleural No pericardial effusion. MMode/2D Measurements Calculations LVIDd: 3.4 cm IVSd: 1.0 cm LVOT diam: 2.1 cm LVIDs: 2.4 cm LVPWd: 1.1 cm LVOT area: 3.4 cm2 FS: 27.9 % LAV(MOD-sp4): 24.1 ml LVAd ap4: 16.9 cm2 SV(MOD-sp4): 16.0 ml LVLd ap4: 7.6 cm SI(MOD-sp4): 9.1 ml/m2 EDV(MOD-sp4): 32.1 ml EDV(sp4-el): 32.1 ml LVAs ap4: 11.1 cm2 LVLs ap4: 6.7 cm ESV(MOD-sp4): 16.2 ml ESV(sp4-el): 15.6 ml EF(MOD-sp4): 49.7 % EF(sp4-el): 51.2 % SV(sp4-el): 16.4 ml LA A4 area: 11.1 cm2 LA dimension(2D): 2.6 cm RA A4 area: 9.2 cm2 Time Measurements MV dec time: 0.22 sec Doppler Measurements Calculations MV E max parviz: 77.5 cm/sec Lat Peak E' Parviz: 12.3 cm/sec Med Peak E' Parviz: 10.2 cm/sec MV A max parviz: 68.9 cm/sec E/E' lat: 6.3 E/E' med: 7.6 MV E/A: 1.1 MV V2 max: 88.3 cm/sec Ao V2 max: 83.9 cm/sec MV max P.1 mmHg MV dec slope: 347.2 cm/sec2 Ao max P.8 mmHg MV V2 mean: 52.8 cm/sec Ao V2 mean: 60.2 cm/sec MV mean P.3 mmHg Ao mean P.6 mmHg MV V2 VTI: 24.9 cm Ao V2 VTI: 17.1 cm AV (velocity ratio): 0.99 MVA(VTI): 2.3 cm2 CHUCK(I,D): 3.3 cm2 CHUCK(V,D): 3.1 cm2 LV V1 max: 77.0 cm/sec SV(LVOT): 57.4 ml PA V2 max: 88.2 cm/sec LV V1 max P.4 mmHg PA V2 mean: 62.8 cm/sec LV V1 mean P.2 mmHg LV V1 mean: 51.8 cm/sec LV V1 VTI: 17.0 cm TR max parviz: 230.6 cm/sec TR max P.3 mmHg ECHO/Echo Complete Interpretation Summary Normal LV size. Left ventricular systolic function is normal. The left ventricular ejection fraction is 60 %. Structurally normal valves. Ordering Physician: Tasha Queen Referring Physician: Rambo Mora Performed By: Anna Martinez RCS 02/02/24 1438 Date Ross Espitia MD CC: Dr. Chucho Meyer MD; Dr. Tasha Queen MD; Dr. Rambo Mora, DO; No Primary Care Physician Date Dictated: 02/02/24 1112 Date Transcribed: 02/02/241437 Customer Account Coordinator: Signed [facility] Emergency Department Summary on 02-01-2024 Emergency Department Summary [facility] Medical Records Department [address] [place] [address] Emergency Department Summary 02/01/24 MR#: [id number] Acct: [id number] Name: JAYCOB CRYSTAL Rep #: [id number] : 1960 63 From: Romina MATTA PCP: Care Physician,No Primary Status:ADM IN Location: [address] History of Present Illness Chief Complaint: Syncope Narrative Narrative: Patient presenting today due to 2 syncopal episodes that occurred today. 1 occurred this morning and 1 occurred shortly prior to arrival. He reports that before both episodes he had been laying down for a long period of time in bed, he then got up and passed out with ambulating. He denies any symptoms prior to passing out such as lightheadedness, chest pain, or shortness of breath. The second episode and syncope resulted in him hitting his head and sustaining a laceration above his right eyebrow. His tetanus is not up-to-date. He denies any cardiac history or history of blood clots/recent surgery/travel/immobi lization. He does admit that he has not been eating or drinking as much as he normally does. He has a PMH of depression, anxiety, GERD, and anemia. He denies recent illness, fevers, chills, abdominal pain, nausea, vomiting. [facility] Medical History Acute insomnia GERD (gastroesophageal reflux disease) Anxiety Depression Home Medications ???Medication ???Instructions ???Recorded ???Last Taken ???Type clorazepate dipotassium 3.75 mg 3.75 mg PO BID PRN anxiety 5 days 08/05/22 Unknown Rx tablet #10 tabs paroxetine HCl 30 mg tablet (Paxil) 30 mg PO DAILY pt states does not 08/05/22 Unknown Rx take #14 tabs acetaminophen 500 mg tablet 500 mg PO Q4H PRN pain 02/01/24 Unknown History (Tylenol Extra Strength) aripiprazole 5 mg tablet 5 mg PO DAILY 02/01/24 Unknown History bupropion HCl 150 mg 24 hr tablet, 150 mg PO DAILY 02/01/24 Unknown History extended release ibuprofen 200 mg tablet (Advil) 400 mg PO Q6H PRN pain 02/01/24 Unknown History meloxicam 7.5 mg tablet 7.5 mg PO DAILY PRN pain 02/01/24 Unknown History pantoprazole 40 mg tablet,delayed 40 mg PO DAILY 02/01/24 Unknown History release trazodone 100 mg tablet 100 mg PO QHS 02/01/24 Unknown History Allergy/AdvReac Type Severity Reaction Status Date / Time No Known Allergies Allergy Verified 02/01/24 15:41 Social History housing: apartment current occupational status: unemployed Smoking Status: Unknown if ever smoked ROS ROS ED Constitutional Constitutional ED: Denies chills or fever(s) Cardiovascular Cardiovascular: Denies chest pain Respiratory/Chest Respiratory/Chest: Denies cough or dyspnea Gastrointestinal Gastrointestinal: Denies abdominal pain, nausea or vomiting Musculoskeletal Musculoskeletal: Denies arthralgias, myalgias or neck pain Integumentary Reports laceration Neurologic Neurologic: Denies dizziness or weakness EXAM Physical Exam Const Vital Signs: 02/01/24 15:38 02/01/24 16:08 02/01/24 16:09 Temperature 98 F Temperature Source Oral Pulse Rate 64 Pulse Rate [Lying] Pulse Rate [Sitting (for 1 minute prior to obtaining)] Pulse Rate [Standing (for 1 minute prior to obtaining)] Respiratory Rate 14 Respiratory Effort Normal Normal Respiratory Depth Normal Respiratory Pattern Normal Normal Blood Pressure 92/65 Blood Pressure [Lying] Blood Pressure [Sitting (for 1 minute prior to obtaining)] Blood Pressure [Standing (for 1 minute prior to obtaining)] Blood Pressure Mean 74 Blood Pressure Mean [Lying] Blood Pressure Mean [Sitting (for 1 minute prior to obtaining)] Blood Pressure Mean [Standing (for 1 minute prior to obtaining)] Pulse Ox 100 Oxygen Delivery Method Room Air 02/01/24 17:32 02/01/24 17:37 02/01/24 18:11 Temperature 98.5 F Temperature Source Pulse Rate 69 66 Pulse Rate [Lying] 67 Pulse Rate [Sitting (for 1 minute prior to obtaining)] 70 Pulse Rate [Standing (for 1 minute prior to obtaining)] 79 Respiratory Rate 15 16 Respiratory Effort Respiratory Depth Respiratory Pattern Blood Pressure 92/62 110/70 Blood Pressure [Lying] 101/61 Blood Pressure [Sitting (for 1 minute prior to obtaining)] 109/65 Blood Pressure [Standing (for 1 minute prior to obtaining)] 92/62 Blood Pressure Mean 72 83 Blood Pressure Mean [Lying] 74 Blood Pressure Mean [Sitting (for 1 minute prior to obtaining)] 79 Blood Pressure Mean [Standing (for 1 minute prior to obtaining)] 72 Pulse Ox 99 100 Oxygen Delivery Method Room Air Positive well nourished, well developed and no apparent distress General Appearance ED: well de (more content not included)... Normal [facility] H AND P Exam - Hospitaliston 02-01-2024 H&P Exam - Hospitalist [facility] Medical Records Department [address] [place] [address] H P Exam - Hospitalist 02/01/24 1801 MR#: [id number] Acct: [id number] Name: JAYCOB CRYSTAL Connie Rep #: [id number] : 1960 63 From: Tasha Queen MD PCP: Care Physician,No Primary Status:REG ER Location: ED HPI - General General Date of Admission: 02/01/24 Date of Service: 02/01/24 Chief Complaint: Syncope x2 HPI Narrative JAYCOBDesirae CRYSTAL, is a 63-year-old male history of depression, GERD, and insomnia who presented [facility] ED 02/01/2024 with 2 syncopal episodes. For syncopal episode occurred in the morning and the second was shortly prior to arrival. Before both episodes he had been laying down in bed for a long period and when he stood up he passed out when he started to ambulate. Second episode he did hit his head and sustained a laceration above his right eyebrow. He was found to have a blood pressure of 92/65 on arrival and notes that he has been having poor p.o. intake recently though he is unsure why. In the ED lab workup did reveal a creatinine of 1.71 but no baseline available. Given his multiple syncopal episodes hospitalist contacted for admission. Patient evaluated at bedside and he reports his for syncopal episode he had been laying down and he stood up and started walking and he did have some lightheaded feeling and then passed out, he is not sure how long he was out for but he thinks it was a couple of seconds. The second time he had been standing down for a while and he got up to go to the door to let somebody in and he does not remember what happened after that and did not note any prodromal symptoms at that time and that episode he did hit his head though he is not sure on what and had a laceration that was repaired in the ED. He thinks he was out longer for the second episode. Nothing like this is ever happened to him before. Does report that he has not been eating and drinking well but does not have a specific reason. He does feel like it is been worse since he moved to [facility] last month because of the portion sizes. Had 1 episode of diarrhea today after he had a soft drink for lunch which he usually does not do but has not had any further episodes and did not have any prior. No abdominal pain, no nausea vomiting. ROS completely negative otherwise. Patient denies any recent medication changes and he did take his regular home medications today before coming in. Denies any alcohol, tobacco, substance use [facility] Medical History Acute insomnia GERD (gastroesophageal reflux disease) Anxiety Depression Home Medications ???Medication ???Instructions ???Recorded ???Last Taken ???Type clorazepate dipotassium 3.75 mg 3.75 mg PO BID PRN anxiety 5 days 08/05/22 Unknown Rx tablet #10 tabs paroxetine HCl 30 mg tablet (Paxil) 30 mg PO DAILY #14 tabs 08/05/22 Unknown Rx acetaminophen 500 mg tablet 500 mg PO Q4H PRN pain 02/01/24 Unknown History (Tylenol Extra Strength) aripiprazole 5 mg tablet 5 mg PO DAILY 02/01/24 Unknown History bupropion HCl 150 mg 24 hr tablet, 150 mg PO DAILY 02/01/24 Unknown History extended release donepezil 5 mg tablet 5 mg PO DAILY 02/01/24 Unknown History ibuprofen 200 mg tablet (Advil) 400 mg PO Q6H PRN pain 02/01/24 Unknown History meloxicam 7.5 mg tablet 7.5 mg PO DAILY PRN pain 02/01/24 Unknown History pantoprazole 40 mg tablet,delayed 40 mg PO DAILY 02/01/24 Unknown History release trazodone 100 mg tablet 100 mg PO QHS 02/01/24 Unknown History Allergy/AdvReac Type Severity Reaction Status Date / Time No Known Allergies Allergy Verified 02/01/24 15:41 Social History housing: apartment current occupational status: unemployed Smoking Status: Unknown if ever smoked ROS ROS Narrative General: Denies fever/chills HENT: Denies headache, denies stuffy nose, denies sore throat EYES: Denies changes in vision Resp: Denies cough, denies shortness of breath Cardiac: Denies chest pain GI: Denies abdominal pain, 1 episode of diarrhea after having something he does not usually have at lunchtime, denies nausea/vomiting : Denies changes in urination Extremity: Denies swelling MSK: Denies weakness Neuro: Denies any numbness/tingling Heme: Denies any bleeding or bruising Skin: Denies rashes, does have repaired laceration on right forehead Psychiatric: No complaints voiced Vital Signs Vital Signs Vital Signs: 02/01/24 15:38 02/01/24 16:08 02/01/24 16:09 Temperature 98 F Temperature Source Oral Pulse Rate 64 Pulse Rate [Lying] Pulse Rate [Sitting (for 1 minute prior to obtaining)] Pulse Rate [Standing (for 1 minute prior to obtaining)] Respira (more content not included)... Normal [facility] L501.4020on 02-01-2024 TROPONIN-I HS 15 pg/mL Normal 3.0-78.0 [facility] Comment on above: Result Comment: Tres gil Note: New Test Units and Gender Specific Reference Ranges. For more information see Policy Stat Procedure [place] High Sensitivity Troponin (TNIH) and attachments. Performed By: #### L 501.2258 ####[facility] [id number] [place], [address] L501.5425on 02-01-2024 TROPONIN-I HS 6 pg/mL Normal 3.0-78.0 [facility] Comment on above: Order Comment: 1Y Result Comment: Tres gil Note: New Test Units and Gender Specific Reference Ranges. For more information see Policy Stat Procedure [place] High Sensitivity Troponin (TNIH) and attachments. Performed By: #### L 100.0100, L500.2500, L501.5425 ####[facility] [id number] [place], [place], [address] Spine Cervical without Contr ason 02-01-2024 [address] without Contras [facility] Imaging Services [address] [place] [address] Spine Cervical without Contras MR#: [id number] Acct: [id number] Name: JAYCOB CRYSTAL Rep #: [id number] : 1960 M 63 From: Levi Jenkins DO PCP: Care Physician,No Primary Status: REG ER Study: Spine Cervical without Contras Date of Exam: 04/03/23 Exam# [id number] Ordering Dr: Romina Fernandez [id number] STUDY: CT CERVICAL SPINE WITHOUT CONTRAST REASON FOR EXAM: Male, 63 years old. head injury RADIATION DOSAGE (If Supplied By Facility): CTDIvol = ( 19.05 ) mGy, DLP = ( 424.71 ) mGycm TECHNIQUE: High resolution transaxial imaging was performed without contrast material. Sagittal and coronal images were reconstructed. Individualized dose optimization techniques were used for this CT. COMPARISON: None FINDINGS: Normal craniovertebral junction. Normal anterior atlantoaxial articulation. Normal odontoid process. Normal cervical lordosis. Normal vertebral bodies and posterior osseous elements. C2-3: Normal endplates. Normal disc height and morphology. Normal central canal and intervertebral neuroforamina. C3-4: Normal endplates. Normal disc height and morphology. Normal central canal. Facet hypertrophy and uncovertebral spurring and a intervertebral neuroforamina, left more than right. C4-5: Degenerative spurring at the endplates. Normal disc height and morphology. Normal central canal. Facet hypertrophy and uncovertebral spurring and a intervertebral neuroforamina. C5-6: Degenerative spurring at the endplates. Normal disc height and morphology. Normal central canal and intervertebral neuroforamina. C6-7: Degenerative spurring at the endplates. Normal disc height and morphology. Normal central canal and intervertebral neuroforamina. C7-T1: Degenerative spurring at the endplates. Narrowed disc height. Normal central canal. Facet hypertrophy and uncovertebral spurring and a intervertebral neuroforamina. Normal visualized soft tissue structures. CT/Spine Cervical without Contras IMPRESSION: Degenerative changes of the cervical spine. Electronically Signed: Levi Jenkins DO at 16:50 EST Reading Location ID and State: [facility] / [place] Tel [phone], Service support , CC: PAXTON [place]; No Primary Care Physician Customer Account Coordinator: Signed Normal [facility] .GFRon 12-22-2023 GFR 64 ml/min/1.73sqm Normal [facility] Comment on above: Result Comment: GFR Population mean for , Non- Americans Ages 20-29 = 116 mL/min/1.73 sq.m. Ages 30-39 = 107 mL/min/1.73 sq.m. Ages 40-49 = 99 mL/min/1.73 sq.m. Ages 50-59 = 93 mL/min/1.73 sq.m. Ages 60-69 = 85 mL/min/1.73 sq.m. Ages 70+ = 75 mL/min/1.73 sq.m. Chronic Kidney Disease: Less than 60 mL/min/1.73 square meters End Stage Renal Disease: Less than 15 mL/min/1.73 square meters Performed By: #### G FR, LIPID, CMP, FE #### [address] [address] #### FOL, B12 #### [address] [address] GFR Non- 53 ml/min/1.73sqm Normal [facility] Comment on above: Result Comment: GFR Population mean for , Non- Americans Ages 20-29 = 116 mL/min/1.73 sq.m. Ages 30-39 = 107 mL/min/1.73 sq.m. Ages 40-49 = 99 mL/min/1.73 sq.m. Ages 50-59 = 93 mL/min/1.73 sq.m. Ages 60-69 = 85 mL/min/1.73 sq.m. Ages 70+ = 75 mL/min/1.73 sq.m. Chronic Kidney Disease: Less than 60 mL/min/1.73 square meters End Stage Renal Disease: Less than 15 mL/min/1.73 square meters Performed By: #### G FR, LIPID, CMP, FE #### [address] [address] #### FOL, B12 #### [address] [address] B12on 12-22-2023 Cobalamin (Vitamin B12) [Mass/Vol] 646 pg/mL Normal 211-911 [facility] Comment on above: Performed By: #### G FR, LIPID, CMP, FE #### [address] [address] #### FOL, B12 #### [address] [address] CMPon 12-22-2023 Albumin Level 4.0 G/dL Normal 3.4-4.8 [facility] Comment on above: Performed By: #### G FR, LIPID, CMP, FE #### [address] [address] #### FOL, B12 #### [address] [address] Albumin/Globulin [Mass ratio] 1.5 {ratio} Normal 1.1-2.5 [facility] Comment on above: Performed By: #### G FR, LIPID, CMP, FE #### [place] [address] #### FOL, B12 #### [address] [address] ALP [Catalytic activity/Vol] 76 U/L Normal 40-135 [facility] Comment on above: Performed By: #### G FR, LIPID, CMP, FE #### [place] [address] #### FOL, B12 #### [place] [address] ALT [Catalytic activity/Vol] 53 U/L Normal 16-63 [facility] Comment on above: Performed By: #### G FR, LIPID, CMP, FE #### [place] [address] #### FOL, B12 #### [address] [address] AST [Catalytic activity/Vol] 85 U/L High 10-40 [facility] Comment on above: Performed By: #### G FR, LIPID, CMP, FE #### [place] [address] #### FOL, B12 #### [place] [address] Bili Total 1.1 mg/dL High 0.2-1.0 [facility] Comment on above: Result Comment: Use of this assay is not recommended for patients undergoing treatment with eltrombopag due to the potential for falsely elevated results. Performed By: #### G FR, LIPID, CMP, FE #### [place] [address] #### FOL, B12 #### [address] [address] BUN/Creatinine Ratio 13 ratio Normal 7-27 [facility] Comment on above: Performed By: #### G FR, LIPID, CMP, FE #### [address] [address] #### FOL, B12 #### [address] [address] Calcium [Mass/Vol] 9.2 mg/dL Normal 8.4-10.2 [facility] Comment on above: Performed By: #### G FR, LIPID, CMP, FE #### [place] [address] #### FOL, B12 #### [address] [address] Chloride [Moles/Vol] 99 mmol/L Normal 98-107 [facility] Comment on above: Performed By: #### G FR, LIPID, CMP, FE #### [place] [address] #### FOL, B12 #### [address] [address] CO2 [Moles/Vol] 36 mmol/L High 23-31 [facility] Comment on above: Performed By: #### G FR, LIPID, CMP, FE #### [place] [address] #### FOL, B12 #### [address] [address] Creatinine [Mass/Vol] 1.36 mg/dL High 0.70-1.30 [facility] Comment on above: Result Comment: Test ing performed on Siemens Dimension EXL analyzer using a modified kinetic Tarik technique. Performed By: #### G FR, LIPID, CMP, FE #### [place] [address] #### FOL, B12 #### [address] [address] Electrolyte Balance 2.0 mEq/L Low 4.0-15.0 [facility] Comment on above: Performed By: #### G FR, LIPID, CMP, FE #### [place] [address] #### FOL, B12 #### [address] [address] Globulin 2.7 G/dL Normal [facility] Comment on above: Performed By: #### G FR, LIPID, CMP, FE #### [address] [address] #### FOL, B12 #### [address] [address] Glucose [Mass/Vol] 140 mg/dL High 80-115 [facility] Comment on above: Performed By: #### G FR, LIPID, CMP, FE #### [address] [address] #### FOL, B12 #### [address] [address] Potassium [Moles/Vol] 4.0 mmol/L Normal 3.5-5.1 [facility] Comment on above: Performed By: #### G FR, LIPID, CMP, FE #### [place] [address] #### FOL, B12 #### [address] [address] Sodium [Moles/Vol] 137 mmol/L Normal 136-145 [facility] Comment on above: Performed By: #### G FR, LIPID, CMP, FE #### [address] [address] #### FOL, B12 #### [address] [address] Total Protein 6.7 G/dL Normal 6.4-8.2 [facility] Comment on above: Performed By: #### G FR, LIPID, CMP, FE #### [address] [address] #### FOL, B12 #### [address] [address] Urea nitrogen [Mass/Vol] 18 mg/dL Normal 7-18 [facility] Comment on above: Performed By: #### G FR, LIPID, CMP, FE #### [address] [address] #### FOL, B12 #### [address] [address] FEon 12-22-2023 Iron [Mass/Vol] 55 ug/dL Low 65-175 [facility] Comment on above: Performed By: #### G FR, LIPID, CMP, FE #### [place] [address] #### FOL, B12 #### [address] [address] [place] 12-22-2023 Ferritin [Mass/Vol] 313.0 ng/mL Normal 26.0-388.0 [facility] Comment on above: Performed By: #### F ERR, PSA #### [place] [id number] FOL 12-22-2023 Folate 22.26 ng/mL Normal 5.38-24.00 [facility] Comment on above: Performed By: #### G FR, LIPID, CMP, FE #### [place] [address] #### FOL, B12 #### [place] [address] LABORATORYOrdered By: SYSTEM SYSTEM on 12-22-2023 Ferritin [Mass/Vol] 313.0 ng/mL Normal 26.0 - 3 88.0 ng/mL AO ADM SS Prostate specific Ag [Mass/Vol] 1.09 ng/mL Normal 0.00 - 4.00 ng/mL AO ADM SS Albumin BCP dye [Mass/Vol] 4.0 G/dL Normal 3.4 - 4.8 G/dL AO ADM SS Albumin/Globulin [Mass ratio] 1.5 {ratio} Normal 1.1 - 2.5 ratio AO ADM SS ALP [Catalytic activity/Vol] 76 U/L Normal 40 - 135 U/L AO ADM SS ALT With P-5'-P [Catalytic activity/Vol] 53 U/L Normal 16 - 63 U/L AO ADM SS AST With P-5'-P [Catalytic activity/Vol] 85 U/L High 10 - 40 U/L AO ADM SS Bilirubin [Mass/Vol] 1.1 mg/dL High 0.2 - 1 .0 mg/dL AO ADM SS Comment on above: Interpretive Data: U se of this assay is not recommended for patients undergoing treatment with eltrombopag due to the potential for falsely elevated results. Calcium [Mass/Vol] 9.2 mg/dL Normal 8.4 - 10. 2 mg/dL AO ADM SS Chloride [Moles/Vol] 99 mmol/L Normal 98 - 10 7 mmol/L AO ADM SS CO2 [Moles/Vol] 36 mmol/L High 23 - 31 mmol/L AO ADM SS Cobalamin (Vitamin B12) [Mass/Vol] 646 pg/mL Normal 211 - 911 pg/mL AH ADM SS Creatinine [Mass/Vol] 1.36 mg/dL High 0.70 - 1.30 mg/dL AO ADM SS Comment on above: Interpretive Data: T esting performed on Siemens Dimension EXL analyzer using a modified kinetic Tarik technique. Electrolyte Balance 2.0 mEq/L Low 4.0 - 15 .0 mEq/L AO ADM SS Folate [Mass/Vol] 22.26 ng/mL Normal 5.38 - 24. 00 ng/mL AH ADM SS GFR/1.73 sq M.predicted among blacks MDRD (S/P/Bld) [Vol rate/Area] 64 ml/min/1.73sqm Invalid Interpretation Code AO Chemistry S Comment on above: Interpretive Data: GFR Population mean for , Non- Americans Ages 20-29 = 116 mL/min/1.73 sq.m. Ages 30-39 = 107 mL/min/1.73 sq.m. Ages 40-49 = 99 mL/min/1.73 sq.m. Ages 50-59 = 93 mL/min/1.73 sq.m. Ages 60-69 = 85 mL/min/1.73 sq.m. Ages 70+ = 75 mL/min/1.73 sq.m. Chronic Kidney Disease: Less than 60 mL/min/1.73 square meters End Stage Renal Disease: Less than 15 mL/min/1.73 square meters GFR/1.73 sq M.predicted among non-blacks MDRD (S/P/Bld) [Vol rate/Area] 53 ml/min/1.73sqm Invalid Interpretation Code AO Chemistry S Comment on above: Interpretive Data: GFR Population mean for , Non- Americans Ages 20-29 = 116 mL/min/1.73 sq.m. Ages 30-39 = 107 mL/min/1.73 sq.m. Ages 40-49 = 99 mL/min/1.73 sq.m. Ages 50-59 = 93 mL/min/1.73 sq.m. Ages 60-69 = 85 mL/min/1.73 sq.m. Ages 70+ = 75 mL/min/1.73 sq.m. Chronic Kidney Disease: Less than 60 mL/min/1.73 square meters End Stage Renal Disease: Less than 15 mL/min/1.73 square meters Globulin 2.7 G/dL Invalid Interpretation Code AO ADM SS Glucose [Mass/Vol] 140 mg/dL High 80 - 115 mg/dL AO ADM SS Iron [Mass/Vol] 55 ug/dL Low 65 - 175 mcg/dL AO ADM SS Potassium [Moles/Vol] 4.0 mmol/L Normal 3.5 - 5.1 mmol/L AO ADM SS Protein [Mass/Vol] 6.7 G/dL Normal 6.4 - 8.2 G/dL AO ADM SS Sodium [Moles/Vol] 137 mmol/L Normal 136 - 145 mmol/L AO ADM SS Urea nitrogen [Mass/Vol] 18 mg/dL Normal 7 - 18 mg/dL AO ADM SS Urea nitrogen/Creatinine [Mass ratio] 13 ratio Normal 7 - 27 ratio AO ADM SS LABORATORYOrdered By: Radha Romero on 12-22-2023 Cholesterol [Mass/Vol] 131 mg/dL Normal 0 - 2 00 mg/dL AO ADM SS Comment on above: Interpretive Data: C holesterol Reference Interval: Less than 200 Desirable 200-239 Borderline high risk 240 and above High risk Cholesterol in HDL [Mass/Vol] 93 mg/dL High 40 - 60 mg/dL AO ADM SS LDL Cholesterol Not Valid Invalid Interpretation Code 0 - 130 AO ADM SS Comment on above: Result Comment: Trig lyceride >400 invalidates the calculated LDL. Triglyceride [Mass/Vol] mg/dL Normal 0 - 150 mg/dL AO ADM SS Comment on above: Result Comment: Rech ecked and verified on both Chemistry analyzers Interpretive Data: T riglyceride Reference Interval: Less than 150 Normal 150-199 Borderline high risk 200-499 High risk 500 or higher Very high risk LIPIDon 12-22-2023 Cholesterol [Mass/Vol] 131 mg/dL Normal 0-200 [facility] Comment on above: Result Comment: Chol esterol Reference Interval: Less than 200 Desirable 200-239 Borderline high risk 240 and above High risk Performed By: #### G FR, LIPID, CMP, FE #### [address] [address] #### FOL, B12 #### [address] [address] Cholesterol in HDL [Mass/Vol] 93 mg/dL High 40-60 [facility] Comment on above: Performed By: #### G FR, LIPID, CMP, FE #### [place] [address] #### FOL, B12 #### [address] [address] LDL Cholesterol Not Valid Normal 0-130 [facility] Comment on above: Result Comment: Trig lyceride >400 invalidates the calculated LDL. Performed By: #### G FR, LIPID, CMP, FE #### [address] [address] #### FOL, B12 #### [address] [address] Triglyceride [Mass/Vol] mg/dL Normal 0-150 [facility] Comment on above: Result Comment: Rech ecked and verified on both Chemistry analyzers Triglyceride Reference Interval: Less than 150 Normal 150-199 Borderline high risk 200-499 High risk 500 or higher Very high risk Performed By: #### G FR, LIPID, CMP, FE #### [place] [address] #### FOL, B12 #### [address] [address] PSAon 12-22-2023 Prostate Specific Antigen 1.09 ng/mL Normal 0.00-4.00 [facility] Comment on above: Performed By: #### F ERR, PSA #### [address] [address] .Auto Diffon 07-21-2023 Basophil, Absolute 0.0 10 3/mcL Normal 0.0-0.2 [facility] ([place]) Comment on above: Performed By: #### A DIFF, CBC, GFR, BMP, ANEUSARI #### [address] [address] Basophils/100 WBC (Bld) 0.5 % Normal 0.0-2.5 A [facility] ([place]) Comment on above: Performed By: #### A DIFF, CBC, GFR, BMP, ANEUSARI #### [address] [address] Eosinophil, Absolute 0.1 10 3/mcL Normal 0.0-0.4 [facility] ([place]) Comment on above: Performed By: #### A DIFF, CBC, GFR, BMP, SARI HENDRIX #### [address] [address] Eosinophils/100 WBC (Bld) 1.9 % Normal 0.0-7.0 [facility] ([place]) Comment on above: Performed By: #### A DIFF, CBC, GFR, BMP, SARI HENDRIX #### [address] [address] Lymphocyte, Absolute 1.0 10 3/mcL Normal 0.8-3.9 [facility] ([place]) Comment on above: Performed By: #### A DIFF, CBC, GFR, BMP, SARI HENDRIX #### [address] [address] Lymphocytes/100 WBC (Bld) 20.1 % Normal 10.0-50.0 [facility] ([place]) Comment on above: Performed By: #### A DIFF, CBC, GFR, BMP, SARI HENDRIX #### [address] [address] Monocyte, Absolute 0.5 10 3/mcL Normal 0.2-1.0 [facility] ([place]) Comment on above: Performed By: #### A DIFF, CBC, GFR, BMP, ANEUSARI #### [address] [address] Monocytes/100 WBC (Bld) 10.3 % Normal 1.7-13.0 A [facility] ([place]) Comment on above: Performed By: #### A DIFF, CBC, GFR, BMP, SARI HENDRIX #### [address] [address] Neutrophils/100 WBC (Bld) 67.2 % Normal 37.0-80.0 [facility] ([place]) Comment on above: Performed By: #### A DIFF, CBC, GFR, BMP, SARI HENDRIX #### [address] [address] .GFRon 07-21-2023 GFR 67 ml/min/1.73sqm Normal [facility] ([place]) Comment on above: Result Comment: GFR Population mean for , Non- Americans Ages 20-29 = 116 mL/min/1.73 sq.m. Ages 30-39 = 107 mL/min/1.73 sq.m. Ages 40-49 = 99 mL/min/1.73 sq.m. Ages 50-59 = 93 mL/min/1.73 sq.m. Ages 60-69 = 85 mL/min/1.73 sq.m. Ages 70+ = 75 mL/min/1.73 sq.m. Chronic Kidney Disease: Less than 60 mL/min/1.73 square meters End Stage Renal Disease: Less than 15 mL/min/1.73 square meters Performed By: #### A DIFF, CBC, GFR, BMP, SARI HENDRIX #### [address] [address] GFR Non- 56 ml/min/1.73sqm Normal [facility] ([place]) Comment on above: Result Comment: GFR Population mean for , Non- Americans Ages 20-29 = 116 mL/min/1.73 sq.m. Ages 30-39 = 107 mL/min/1.73 sq.m. Ages 40-49 = 99 mL/min/1.73 sq.m. Ages 50-59 = 93 mL/min/1.73 sq.m. Ages 60-69 = 85 mL/min/1.73 sq.m. Ages 70+ = 75 mL/min/1.73 sq.m. Chronic Kidney Disease: Less than 60 mL/min/1.73 square meters End Stage Renal Disease: Less than 15 mL/min/1.73 square meters Performed By: #### A DIFF, CBC, GFR, BMP, ANEUSARI #### [address] [address] .MDWon 07-21-2023 Monocyte Distribution Width 15.83 Normal 0.00-20.00 [facility] ([place]) Comment on above: Result Comment: For ED adult patients suspected of sepsis, MDW<=20.0 does not rule out sepsis or risk of sepsis Performed By: #### A DIFF, CBC, GFR, BMP, ANEUSARI #### [address] [address] .NEUABSon 07-21-2023 Neutrophil, Absolute 3.2 10 3/mcL Normal 2.9-6.2 [facility] ([place]) Comment on above: Performed By: #### A DIFF, CBC, GFR, BMP, SARI HENDRIX #### [address] [address] BMPon 07-21-2023 BUN/Creatinine Ratio 12 ratio Normal 7-27 [facility] ([place]) Comment on above: Performed By: #### A DIFF, CBC, GFR, BMP, SARI HENDRIX #### [address] [address] Calcium [Mass/Vol] 8.7 mg/dL Normal 8.4-10.2 [facility] ([place]) Comment on above: Performed By: #### A DIFF, CBC, GFR, BMP, SARI HENDRIX #### [address] [address] Chloride [Moles/Vol] 103 mmol/L Normal 98-107 [facility] ([place]) Comment on above: Performed By: #### A DIFF, CBC, GFR, BMP, SARI HENDRIX #### [address] [address] CO2 [Moles/Vol] 33 mmol/L High 23-31 [facility] ([place]) Comment on above: Performed By: #### A DIFF, CBC, GFR, BMP, SARI HENDRIX #### [address] [address] Electrolyte Balance 6.0 mEq/L Normal 4.0-15.0 [facility] ([place]) Comment on above: Performed By: #### A DIFF, CBC, GFR, BMP, SARI HENDRIX #### [address] [address] Glucose [Mass/Vol] 105 mg/dL Normal 80-115 [facility] ([place]) Comment on above: Performed By: #### A DIFF, CBC, GFR, BMP, SARI HENDRIX #### [address] [address] Potassium [Moles/Vol] 4.7 mmol/L Normal 3.5-5.1 [facility] ([place]) Comment on above: Performed By: #### A DIFF, CBC, GFR, BMP, SARI HENDRIX #### [address] [address] Sodium [Moles/Vol] 142 mmol/L Normal 136-145 [facility] ([place]) Comment on above: Performed By: #### A DIFF, CBC, GFR, BMP, SARI HENDRIX #### [address] [address] Urea nitrogen [Mass/Vol] 15 mg/dL Normal 7-18 [facility] ([place]) Comment on above: Performed By: #### A DIFF, CBC, GFR, BMP, SARI HENDRIX #### [address] [address] Creatinine [Mass/Vol] 1.30 mg/dL Normal 0.70-1.30 [facility] ([place]) Comment on above: Performed By: #### A DIFF, CBC, GFR, BMP, SARI HENDRIX #### [address] [address] CBCon 07-21-2023 Erythrocyte distribution width (RBC) [Ratio] 14.9 % High 11.5-14.5 [facility] ([place]) Comment on above: Performed By: #### A DIFF, CBC, GFR, BMP, SARI HENDRIX #### [address] [address] Hematocrit (Bld) [Volume fraction] 34.5 % Low 42.0-52.0 [facility] ([place]) Comment on above: Performed By: #### A DIFF, CBC, GFR, BMP, SARI HENDRIX #### [place] [id number] Hgb 12.5 G/dL Low 14.0-18.0 [facility] ([place]) Comment on above: Performed By: #### A DIFF, CBC, GFR, BMP, SARI HENDRIX #### [place] [id number] MCH (RBC) [Entitic mass] 34.8 pg High 27.0-31.2 [facility] ([place]) Comment on above: Performed By: #### A DIFF, CBC, GFR, SIMEON CHRISTINE MDW #### [place] [id number] MCHC 36.1 G/dL High 31.8-35.4 [facility] ([place]) Comment on above: Performed By: #### A DIFF, CBC, GFR, NANCI, SARI HENDRIX #### [place] [id number] MCV (RBC) [Entitic vol] 96.4 fL High 80.0-94.0 [facility] ([place]) Comment on above: Performed By: #### A DIFF, CBC, GFR, SIMEON CHRISTINE MDW #### [place] [id number] Platelet 157 10 3/mcL Normal 130-400 [facility] ([place]) Comment on above: Performed By: #### A DIFF, CBC, GFR, BMP, SARI HENDRIX #### [address] [address] Platelet mean volume (Bld) [Entitic vol] 9.1 fL Normal 7.4-10.4 [facility] ([place]) Comment on above: Performed By: #### A DIFF, CBC, GFR, BMP, ANEU, MDW #### [address] [address] RBC 3.58 10 6/mcL Low 4.04-6.13 [facility] ([place]) Comment on above: Performed By: #### A DIFF, CBC, GFR, BMP, ANEU, MDW #### [address] [address] WBC 4.8 10 3/mcL Normal 4.6-10.8 [facility] ([place]) Comment on above: Performed By: #### A DIFF, CBC, GFR, BMP, ANEU, MDW #### [address] [address] [address] ABD/PELVIS W/ IV CONTRAST ONLYon 07-21-2023 CT ABD/PELVIS W/ IV CONTRAST ONLY ORIGINAL EXAMINATION: CT OF THE ABDOMEN AND PELVIS WITH CONTRAST07/20/2023 11:[address] ABDOMEN/PELVIS WITH CONTRAST TECHNIQUE: CT of the abdomen and pelvis was performed with the administration of intravenous contrast. Multiplanar reformatted images are provided for review. Automated exposure control, iterative reconstruction, and/or weight based adjustment of the mA/kV was utilized to reduce the radiation dose to as low as reasonably achievable. COMPARISON: None available HISTORY: ORDERING SYSTEM PROVIDED HISTORY: Reason for Exam: C/o bilat lower back pain. pain FINDINGS: The size, density, and morphology of the liver, spleen, adrenals, kidneys, pancreas and unopacified loops of bowel are unremarkable. Prior cholecystectomy and gastric sleeve noted. The opacified aorta demonstrates normal size and morphology without aneurysmal dilation or dissection. There are no enlarged lymph nodes by pathologic size criteria. There is no free fluid within the pelvis. Mild bladder wall thickening. The pelvic organs have an unremarkable CT appearance. The osseous structures are without gross lytic or sclerotic lesion. The lung bases are clear. IMPRESSION: No acute intra-abdominal or intrapelvic pathology. Bladder wall thickening may be due to cystitis, laboratory correlation is needed. Interpreted by: Chucho Cortes MD Preliminary Report By: Chucho Cortes MD Electronically signed By Chucho Cortes MD Dictated Date: 07/20/2023 11:28:52 PM Prelim Date: 07/20/2023 11:34:23 PM Sign Date: 07/20/2023 11:34:23 PM Ordering Provider: [facility]Y [facility] ([place]) LABORATORYOrdered By: Any García on 07-21-2023 Appearance (U) Clear (07/21/23 12:02 AM) Normal Clear AO Auto Urine SS Bilirubin Ql (U) Negative (07/21/23 12:02 AM) Normal Negative AO Auto Urine SS Color (U) Yellow (07/21/23 12:02 AM) Normal AO Auto Urine SS Glucose Test strip (U) [Mass/Vol] Negative Normal Negative AO Auto Urine SS Hemoglobin Auto test strip (U) [Mass/Vol] Negative (07/21/23 12:02 AM) Normal Negative AO Auto Urine SS Ketones Ql (U) Negative Normal Negative AO Auto Urine SS UA Leuk Est Negative (07/21/23 12:02 AM) Normal Negative AO Auto Urine SS UA Nitrite Negative (07/21/23 12:02 AM) Normal Negative AO Auto Urine SS UA pH 7.0 (07/21/23 12:02 AM) Normal 5.0 - 8.0 AO Auto Urine SS UA Protein Negative Normal Negative AO Auto Urine SS UA Spec Grav 1.015 (07/21/23 12:02 AM) Normal 1.015-1.025 AO Auto Urine SS UA Specimen Type Clean Catch (07/21/23 12:02 AM) Normal AO Auto Urine SS UA Urobilinogen 1.0 E.U./dL Normal 0.2-1.0 AO Auto Urine SS UAon 07-21-2023 Color (U) Yellow Normal [facility] ([place]) Comment on above: Performed By: #### A SARI SANCHES, ALC, CBC, BMP, ADIFF, GFR #### [place] [address] [place] [address] Glucose (U) [Mass/Vol] Negative Normal Negative [facility] ([place]) Comment on above: Performed By: #### A SARI SANCHES, ALC, CBC, BMP, ADIFF, GFR #### [address] [address] Ketones Ql (U) Negative Normal Negative [facility] ([place]) Comment on above: Performed By: #### A SARI SANCHES, ALC, CBC, BMP, ADIFF, GFR #### [address] [address] UA Appear Clear Normal Clear [facility] ([place]) Comment on above: Performed By: #### A SARI SANCHES, ALC, CBC, BMP, ADIFF, GFR #### [address] [address] UA Blood Negative Normal Negative [facility] ([place]) Comment on above: Performed By: #### A SARI SANCHES, STEFANI, CBC, BMP, ADIFF, GFR #### [address] [address] UA Leuk Est Negative Normal Negative [facility] ([place]) Comment on above: Performed By: #### A SARI SANCHES, STEFANI, CBC, BMP, ADIFF, GFR #### [address] [address] UA Nitrite Negative Normal Negative [facility] ([place]) Comment on above: Performed By: #### A SARI SANCHES, STEFANI, CBC, BMP, ADIFF, GFR #### [address] [address] UA pH 7.0 Normal 5.0 - 8.0 [facility] ([place]) Comment on above: Performed By: #### A SARI SANCHES, ALC, CBC, BMP, ADIFF, GFR #### [address] [address] UA Protein Negative Normal Negative [facility] ([place]) Comment on above: Performed By: #### A SARI SANCHES, STEFANI, CBC, BMP, ADIFF, GFR #### [address] [address] UA Spec Grav 1.015 Normal 1.015-1.025 [facility] ([place]) Comment on above: Performed By: #### A SARI SANCHES, ALC, CBC, BMP, ADIFF, GFR #### [place] [id number] [place], [place] [address] UA Specimen Type Clean Catch Normal [facility] ([place]) Comment on above: Performed By: #### A SARI SANCHES, ALC, CBC, BMP, ADIFF, GFR #### [place] [address] [place], [place] [address] UA Urobilinogen 1.0 E.U./dL Normal 0.2-1.0 [facility] ([place]) Comment on above: Performed By: #### A SARI SANCHES, ALC, CBC, BMP, ADIFF, GFR #### [place] [id number] [place] [id number] Urobilinogen (U) [Mass/Vol] Negative Normal Negative [facility] ([place]) Comment on above: Performed By: #### A SARI SANCHES, ALC, CBC, BMP, ADIFF, GFR #### [place] [id number] [place] [id number] LABORATORYOrdered By: SYSTEM SYSTEM on 07-20-2023 Basophil, Absolute 0.0 103/mcL Normal 0.0 - 0.2 10^3/mcL AO Workflow SS Basophils/100 WBC (Bld) 0.5 % Normal 0.0 - 2.5 % AO Workflow SS Calcium [Mass/Vol] 8.7 mg/dL Normal 8.4 - 10. 2 mg/dL AO ADM SS Chloride [Moles/Vol] 103 mmol/L Normal 98 - 10 7 mmol/L AO ADM SS CO2 [Moles/Vol] 33 mmol/L High 23 - 31 mmol/L AO ADM SS Creatinine [Mass/Vol] 1.30 mg/dL Normal 0.70 - 1.30 mg/dL AO ADM SS Electrolyte Balance 6.0 mEq/L Normal 4.0 - 15 .0 mEq/L AO ADM SS Eosinophil, Absolute 0.1 103/mcL Normal 0.0 - 0 .4 10^3/mcL AO Workflow SS Eosinophils/100 WBC (Bld) 1.9 % Normal 0.0 - 7.0 % AO Workflow SS Erythrocyte distribution width (RBC) [Ratio] 14.9 % High 11.5 - 14.5 % AO Workflow SS GFR/1.73 sq M.predicted among blacks MDRD (S/P/Bld) [Vol rate/Area] 67 ml/min/1.73sqm Invalid Interpretation Code AO Chemistry S Comment on above: Interpretive Data: GFR Population mean for , Non- Americans Ages 20-29 = 116 mL/min/1.73 sq.m. Ages 30-39 = 107 mL/min/1.73 sq.m. Ages 40-49 = 99 mL/min/1.73 sq.m. Ages 50-59 = 93 mL/min/1.73 sq.m. Ages 60-69 = 85 mL/min/1.73 sq.m. Ages 70+ = 75 mL/min/1.73 sq.m. Chronic Kidney Disease: Less than 60 mL/min/1.73 square meters End Stage Renal Disease: Less than 15 mL/min/1.73 square meters GFR/1.73 sq M.predicted among non-blacks MDRD (S/P/Bld) [Vol rate/Area] 56 ml/min/1.73sqm Invalid Interpretation Code AO Chemistry S Comment on above: Interpretive Data: GFR Population mean for , Non- Americans Ages 20-29 = 116 mL/min/1.73 sq.m. Ages 30-39 = 107 mL/min/1.73 sq.m. Ages 40-49 = 99 mL/min/1.73 sq.m. Ages 50-59 = 93 mL/min/1.73 sq.m. Ages 60-69 = 85 mL/min/1.73 sq.m. Ages 70+ = 75 mL/min/1.73 sq.m. Chronic Kidney Disease: Less than 60 mL/min/1.73 square meters End Stage Renal Disease: Less than 15 mL/min/1.73 square meters Glucose [Mass/Vol] 105 mg/dL Normal 80 - 115 mg/dL AO ADM SS Hematocrit (Bld) [Volume fraction] 34.5 % Low 42.0 - 52.0 % AO Workflow SS Hemoglobin (Bld) [Mass/Vol] 12.5 G/dL Low 14.0 - 18.0 G/dL AO Workflow SS Lymphocyte, Absolute 1.0 103/mcL Normal 0.8 - 3 .9 10^3/mcL AO Workflow SS Lymphocytes/100 WBC (Bld) 20.1 % Normal 10.0 - 50.0 % AO Workflow SS MCH (RBC) [Entitic mass] 34.8 pg High 27.0 - 31.2 pg AO Workflow SS MCHC 36.1 G/dL High 31.8 - 35.4 G/dL AO Workflow SS MCV (RBC) [Entitic vol] 96.4 fL High 80.0 - 94.0 fL AO Workflow SS Monocyte distribution width Auto (Bld) [Entitic vol] 15.83 1 Normal 0.00 - 20.00 AO Workflow SS Comment on above: Result Comment: For ED adult patients suspected of sepsis, MDW<=20.0 does not rule out sepsis or risk of sepsis Monocyte, Absolute 0.5 103/mcL Normal 0.2 - 1.0 10^3/mcL AO Workflow SS Monocytes/100 WBC (Bld) 10.3 % Normal 1.7 - 13.0 % AO Workflow SS Neutrophil, Absolute 3.2 103/mcL Normal 2.9 - 6 .2 10^3/mcL AO Workflow SS Neutrophils/100 WBC (Bld) 67.2 % Normal 37.0 - 80.0 % AO Workflow SS Platelet mean volume (Bld) [Entitic vol] 9.1 fL Normal 7.4 - 10.4 fL AO Workflow SS Platelets (Bld) [#/Vol] 157 103/mcL Normal 130 - 400 10^3/mcL AO Workflow SS Potassium [Moles/Vol] 4.7 mmol/L Normal 3.5 - 5.1 mmol/L AO ADM SS RBC (Bld) [#/Vol] 3.58 106/mcL Low 4.04 - 6.1 3 10^6/mcL AO Workflow SS Sodium [Moles/Vol] 142 mmol/L Normal 136 - 145 mmol/L AO ADM SS Urea nitrogen [Mass/Vol] 15 mg/dL Normal 7 - 18 mg/dL AO ADM SS Urea nitrogen/Creatinine [Mass ratio] 12 ratio Normal 7 - 27 ratio AO ADM SS WBC (Bld) [#/Vol] 4.8 103/mcL Normal 4.6 - 10.8 10^3/mcL AO Workflow SS LABORATORYOrdered By: Zarina Robin on 07-18-2023 Appearance (U) Clear (07/18/23 12:04 AM) Normal Clear AO Auto Urine SS Bilirubin Ql (U) Negative (07/18/23 12:04 AM) Normal Negative AO Auto Urine SS Color (U) Yellow (07/18/23 12:04 AM) Normal AO Auto Urine SS Glucose Test strip (U) [Mass/Vol] Negative Normal Negative AO Auto Urine SS Hemoglobin Auto test strip (U) [Mass/Vol] Negative (07/18/23 12:04 AM) Normal Negative AO Auto Urine SS Ketones Ql (U) Negative Normal Negative AO Auto Urine SS UA Leuk Est Negative (07/18/23 12:04 AM) Normal Negative AO Auto Urine SS UA Nitrite Negative (07/18/23 12:04 AM) Normal Negative AO Auto Urine SS UA pH 7.0 (07/18/23 12:04 AM) Normal 5.0 - 8.0 AO Auto Urine SS UA Protein Negative Normal Negative AO Auto Urine SS UA Spec Grav 1.020 (07/18/23 12:04 AM) Normal 1.015-1.025 AO Auto Urine SS UA Specimen Type Clean Catch (07/18/23 12:04 AM) Normal AO Auto Urine SS UA Urobilinogen 1.0 E.U./dL Normal 0.2-1.0 AO Auto Urine SS UAon 07-18-2023 Color (U) Yellow Normal [facility] ([place]) Comment on above: Performed By: #### A DIFF, CBC, GFR, NANCI, SARI HENDRIX #### [address] [address] Glucose (U) [Mass/Vol] Negative Normal Negative [facility] ([place]) Comment on above: Performed By: #### A DIFF, CBC, GFR, BMP, SARI HENDRIX #### [address] [address] Ketones Ql (U) Negative Normal Negative [facility] ([place]) Comment on above: Performed By: #### A DIFF, CBC, GFR, NANCI, SARI HENDRIX #### [address] [address] UA Appear Clear Normal Clear [facility] ([place]) Comment on above: Performed By: #### A DIFF, CBC, GFR, NACNI, SARI HENDRIX #### [address] [address] UA Blood Negative Normal Negative [facility] ([place]) Comment on above: Performed By: #### A DIFF, CBC, GFR, BMP, SARI HENDRIX #### [address] [address] UA Leuk Est Negative Normal Negative [facility] ([place]) Comment on above: Performed By: #### A DIFF, CBC, GFR, BMP, SARI HENDRIX #### [address] [address] UA Nitrite Negative Normal Negative [facility] ([place]) Comment on above: Performed By: #### A DIFF, CBC, GFR, BMP, SARI HENDRIX #### [place] [address] UA pH 7.0 Normal 5.0 - 8.0 [facility] ([place]) Comment on above: Performed By: #### A DIFF, CBC, GFR, BMP, SARI HENDRIX #### [place] [address] UA Protein Negative Normal Negative [facility] ([place]) Comment on above: Performed By: #### A DIFF, CBC, GFR, NANCI, SARI HENDRIX #### [place] [address] UA Spec Grav 1.020 Normal 1.015-1.025 [facility] ([place]) Comment on above: Performed By: #### A DIFF, CBC, GFR, NANCI, SARI HENDRIX #### [place] [address] UA Specimen Type Clean Catch Normal [facility] ([place]) Comment on above: Performed By: #### A DIFF, CBC, GFR, BMP, SARI HENDRIX #### [place] [address] UA Urobilinogen 1.0 E.U./dL Normal 0.2-1.0 [facility] ([place]) Comment on above: Performed By: #### A DIFF, CBC, GFR, BMP, SARI HENDRIX #### [place] [address] [place], [place] [address] Urobilinogen (U) [Mass/Vol] Negative Normal Negative [facility] ([place]) Comment on above: Performed By: #### A DIFF, CBC, GFR, BMP, SARI HENDRIX #### [address] [address] .Auto Diffon 06-12-2023 Basophil, Absolute 0.0 10 3/mcL Normal 0.0-0.2 [facility] ([place]) Comment on above: Performed By: #### A SARI SANCHES, ALC, CBC, BMP, ADIFF, GFR #### [address] [address] Basophils/100 WBC (Bld) 0.6 % Normal 0.0-2.5 A [facility] ([place]) Comment on above: Performed By: #### A SARI SANCHES, ALC, CBC, BMP, ADIFF, GFR #### [address] [address] Eosinophil, Absolute 0.0 10 3/mcL Normal 0.0-0.4 [facility] ([place]) Comment on above: Performed By: #### A SARI SANCHES, ALC, CBC, BMP, ADIFF, GFR #### [address] [address] Eosinophils/100 WBC (Bld) 0.4 % Normal 0.0-7.0 [facility] ([place]) Comment on above: Performed By: #### A SARI SANCHES, ALC, CBC, BMP, ADIFF, GFR #### [address] [address] Lymphocyte, Absolute 0.6 10 3/mcL Low 0.8-3.9 [facility] ([place]) Comment on above: Performed By: #### A SARI SANCHES, ALC, CBC, BMP, ADIFF, GFR #### [address] [address] Lymphocytes/100 WBC (Bld) 8.5 % Low 10.0-50.0 [facility] ([place]) Comment on above: Performed By: #### A SARI SANCHES, ALC, CBC, BMP, ADIFF, GFR #### [address] [address] Monocyte, Absolute 0.5 10 3/mcL Normal 0.2-1.0 [facility] ([place]) Comment on above: Performed By: #### A SARI SANCHES, ALC, CBC, BMP, ADIFF, GFR #### [address] [address] Monocytes/100 WBC (Bld) 6.7 % Normal 1.7-13.0 [facility] ([place]) Comment on above: Performed By: #### A SARI SANCHES, ALC, CBC, BMP, ADIFF, GFR #### [address] [address] Neutrophils/100 WBC (Bld) 83.8 % High 37.0-80.0 [facility] ([place]) Comment on above: Performed By: #### A SARI SANCHES, STEFANI, CBC, BMP, ADIFF, GFR #### [address] [address] .GFRon 06-12-2023 GFR 62 ml/min/1.73sqm Normal [facility] ([place]) Comment on above: Result Comment: GFR Population mean for , Non- Americans Ages 20-29 = 116 mL/min/1.73 sq.m. Ages 30-39 = 107 mL/min/1.73 sq.m. Ages 40-49 = 99 mL/min/1.73 sq.m. Ages 50-59 = 93 mL/min/1.73 sq.m. Ages 60-69 = 85 mL/min/1.73 sq.m. Ages 70+ = 75 mL/min/1.73 sq.m. Chronic Kidney Disease: Less than 60 mL/min/1.73 square meters End Stage Renal Disease: Less than 15 mL/min/1.73 square meters Performed By: #### A SARI SANCHES, ALC, CBC, BMP, ADIFF, GFR #### [address] [address] GFR Non- 51 ml/min/1.73sqm Normal [facility] ([place]) Comment on above: Result Comment: GFR Population mean for , Non- Americans Ages 20-29 = 116 mL/min/1.73 sq.m. Ages 30-39 = 107 mL/min/1.73 sq.m. Ages 40-49 = 99 mL/min/1.73 sq.m. Ages 50-59 = 93 mL/min/1.73 sq.m. Ages 60-69 = 85 mL/min/1.73 sq.m. Ages 70+ = 75 mL/min/1.73 sq.m. Chronic Kidney Disease: Less than 60 mL/min/1.73 square meters End Stage Renal Disease: Less than 15 mL/min/1.73 square meters Performed By: #### A SARI SANCHES, ALC, CBC, BMP, ADIFF, GFR #### [address] [address] .MDWon 06-12-2023 Monocyte Distribution Width 16.69 Normal 0.00-20.00 [facility] ([place]) Comment on above: Result Comment: For ED adult patients suspected of sepsis, MDW<=20.0 does not rule out sepsis or risk of sepsis Performed By: #### A SARI SANCHES, ALC, CBC, BMP, ADIFF, GFR #### [address] [address] .NEUABSon 06-12-2023 Neutrophil, Absolute 5.8 10 3/mcL Normal 2.9-6.2 [facility] ([place]) Comment on above: Performed By: #### A SARI SANCHES, ALC, CBC, BMP, ADIFF, GFR #### [address] [address] .Urinalysis Microscopic (AO) on 06-12-2023 UA RBC 5-10 Abnormal None Seen [facility] ([place]) Comment on above: Performed By: #### A DIFF, CBC, GFR, BMP, MD SIMEONW #### [address] [address] UA Squam Epithelial None Seen Normal None Seen [facility] ([place]) Comment on above: Performed By: #### A DIFF, CBC, GFR, NANCI, SARI HENDRIX #### [address] [address] UA WBC None Seen Normal None Seen [facility] ([place]) Comment on above: Performed By: #### A DIFF, CBC, GFR, NANCI, SARI HENDRIX #### [address] [address] CBCon 06-12-2023 Erythrocyte distribution width (RBC) [Ratio] 13.9 % Normal 11.5-14.5 [facility] ([place]) Comment on above: Performed By: #### A SARI SANCHES, ALC, CBC, BMP, ADIFF, GFR #### [place] [address] Hematocrit (Bld) [Volume fraction] 39.0 % Low 42.0-52.0 [facility] ([place]) Comment on above: Performed By: #### A SARI SANCHES, ALC, CBC, BMP, ADIFF, GFR #### [place] [address] Hgb 13.8 G/dL Low 14.0-18.0 [facility] ([place]) Comment on above: Performed By: #### A SARI SANCHES, ALC, CBC, BMP, ADIFF, GFR #### [address] [address] MCH (RBC) [Entitic mass] 33.8 pg High 27.0-31.2 [facility] ([place]) Comment on above: Performed By: #### A SARI SANCHES, ALC, CBC, BMP, ADIFF, GFR #### [place] [address] MCHC 35.5 G/dL High 31.8-35.4 [facility] ([place]) Comment on above: Performed By: #### A SARI SANCHES, ALC, CBC, BMP, ADIFF, GFR #### [address] [address] MCV (RBC) [Entitic vol] 95.4 fL High 80.0-94.0 A [facility] ([place]) Comment on above: Performed By: #### A SARI SANCHES, ALC, CBC, BMP, ADIFF, GFR #### [address] [address] Platelet 201 10 3/mcL Normal 130-400 [facility] ([place]) Comment on above: Performed By: #### A SARI SANCHES, ALC, CBC, BMP, ADIFF, GFR #### [address] [address] Platelet mean volume (Bld) [Entitic vol] 9.4 fL Normal 7.4-10.4 [facility] ([place]) Comment on above: Performed By: #### A SARI SANCHES, ALC, CBC, BMP, ADIFF, GFR #### [address] [address] RBC 4.09 10 6/mcL Normal 4.04-6.13 [facility] ([place]) Comment on above: Performed By: #### A SARI SANCHES, ALC, CBC, BMP, ADIFF, GFR #### [address] [address] WBC 6.9 10 3/mcL Normal 4.6-10.8 [facility] ([place]) Comment on above: Performed By: #### A SARI SANCHES, ALC, CBC, BMP, ADIFF, GFR #### [address] [address] CMPon 06-12-2023 Albumin Level 3.8 G/dL Normal 3.4-4.8 [facility] ([place]) Comment on above: Performed By: #### A SARI SANCHES, ALC, CBC, BMP, ADIFF, GFR #### [address] [address] Albumin/Globulin [Mass ratio] 1.4 {ratio} Normal 1.1-2.5 [facility] ([place]) Comment on above: Performed By: #### A SARI SANCHES, ALC, CBC, BMP, ADIFF, GFR #### [address] [address] ALP [Catalytic activity/Vol] 73 U/L Normal 40-135 [facility] ([place]) Comment on above: Performed By: #### A SARI SANCHES, ALC, CBC, BMP, ADIFF, GFR #### [address] [address] ALT [Catalytic activity/Vol] 23 U/L Normal 16-63 [facility] ([place]) Comment on above: Performed By: #### A SARI SANCHES, ALC, CBC, BMP, ADIFF, GFR #### [address] [address] AST [Catalytic activity/Vol] 15 U/L Normal 10-40 [facility] ([place]) Comment on above: Performed By: #### A SARI SANCHES, ALC, CBC, BMP, ADIFF, GFR #### [address] [address] Bili Total 1.0 mg/dL Normal 0.2-1.0 [facility] ([place]) Comment on above: Result Comment: Use of this assay is not recommended for patients undergoing treatment with eltrombopag due to the potential for falsely elevated results. Performed By: #### A SARI SANCHES, STEFANI, CBC, BMP, ADIFF, GFR #### [address] [address] BUN/Creatinine Ratio 9 ratio Normal 7-27 [facility] ([place]) Comment on above: Performed By: #### A SARI SANCHES, ALC, CBC, BMP, ADIFF, GFR #### [address] [address] Calcium [Mass/Vol] 8.7 mg/dL Normal 8.4-10.2 [facility] ([place]) Comment on above: Performed By: #### A SARI SANCHES, ALC, CBC, BMP, ADIFF, GFR #### [address] [address] Chloride [Moles/Vol] 102 mmol/L Normal 98-107 [facility] ([place]) Comment on above: Performed By: #### A SARI SANCHES, ALC, CBC, BMP, ADIFF, GFR #### [address] [address] CO2 [Moles/Vol] 33 mmol/L High 23-31 [facility] ([place]) Comment on above: Performed By: #### A SARI SANCHES, ALC, CBC, BMP, ADIFF, GFR #### [address] [address] Creatinine [Mass/Vol] 1.40 mg/dL High 0.70-1.30 [facility] ([place]) Comment on above: Performed By: #### A SARI SANCHES, ALC, CBC, BMP, ADIFF, GFR #### [address] [address] Electrolyte Balance 6.0 mEq/L Normal 4.0-15.0 [facility] ([place]) Comment on above: Performed By: #### A SARI SANCHES, ALC, CBC, BMP, ADIFF, GFR #### [address] [address] Globulin 2.7 G/dL Normal [facility] ([place]) Comment on above: Performed By: #### A SARI SANCHES, ALC, CBC, BMP, ADIFF, GFR #### [address] [address] Glucose [Mass/Vol] 127 mg/dL High 80-115 [facility] ([place]) Comment on above: Performed By: #### A SARI SANCHES, ALC, CBC, BMP, ADIFF, GFR #### [address] [address] Potassium [Moles/Vol] 4.5 mmol/L Normal 3.5-5.1 [facility] ([place]) Comment on above: Performed By: #### A SARI SANCHES, ALC, CBC, BMP, ADIFF, GFR #### [address] [address] Sodium [Moles/Vol] 141 mmol/L Normal 136-145 [facility] ([place]) Comment on above: Performed By: #### A SARI SANCHES, ALC, CBC, BMP, ADIFF, GFR #### [place] [id number] [place], [place] [address] Total Protein 6.5 G/dL Normal 6.4-8.2 [facility] ([place]) Comment on above: Performed By: #### A SARI SANCHES, ALC, CBC, BMP, ADIFF, GFR #### [id number] [place], [place] [address] Urea nitrogen [Mass/Vol] 12 mg/dL Normal 7-18 [facility] ([place]) Comment on above: Performed By: #### A SARI SANCHES, ALC, CBC, BMP, ADIFF, GFR #### [id number] [place], [place] [address] LABORATORYOrdered By: Zarina Robin on 06-12-2023 Appearance (U) Clear (06/12/23 8:42 PM) Normal Clear AO Auto Urine SS Bilirubin Ql (U) Negative (06/12/23 8:42 PM) Normal Negative AO Auto Urine SS Color (U) Yellow (06/12/23 8:42 PM) Normal AO Auto Urine SS Glucose Test strip (U) [Mass/Vol] Negative Normal Negative AO Auto Urine SS Hemoglobin Auto test strip (U) [Mass/Vol] Small *ABN* (06/12/23 8:42 PM) Invalid Interpretation Code Negative AO Auto Urine SS Ketones Ql (U) Negative Normal Negative AO Auto Urine SS UA Leuk Est Negative (06/12/23 8:42 PM) Normal Negative AO Auto Urine SS UA Nitrite Negative (06/12/23 8:42 PM) Normal Negative AO Auto Urine SS UA pH 6.5 (06/12/23 8:42 PM) Normal 5.0 - 8.0 AO Auto Urine SS UA Protein 30 mg/dL Normal Negative AO Auto Urine SS UA RBC 5-10 /HPF Invalid Interpretation Code None Seen AO Auto Urine SS UA Spec Grav 1.020 (06/12/23 8:42 PM) Normal 1.015-1.025 AO Auto Urine SS UA Specimen Type Clean Catch (06/12/23 8:42 PM) Normal AO Auto Urine SS UA Squam Epithelial None Seen /HPF Normal None Seen A O Auto Urine SS UA Urobilinogen 1.0 E.U./dL Normal 0.2-1.0 AO Auto Urine SS WBC LM.HPF (Urine sed) [#/Area] None Seen /HPF Normal None Seen AO Auto Urine SS INR Coag (PPP) [Relative time] 1.1 {INR} Invalid Interpretation Code AO [facility] SS Comment on above: Interpretive Data: [employer] (CHEST, 1991, 102:312S-25S) recommended therapeutic range for oral anticoagulant therapy is: LOW RISK: Prophylaxis of venous thrombosis INR: 2.0-3.0 Treatment of pulmonary embolism 2.0-3.0 Prevention of systemic embolism 2.0-3.0 HIGH RISK: Mechanical prosthetic valves 2.5-3.5 PT Coag (PPP) [Time] 12.1 s Normal 9.0 - 1 4.2 seconds AO [facility] SS LABORATORYOrdered By: SYSTEM SYSTEM on 06-12-2023 Albumin BCP dye [Mass/Vol] 3.8 G/dL Normal 3.4 - 4.8 G/dL AO ADM SS Albumin/Globulin [Mass ratio] 1.4 {ratio} Normal 1.1 - 2.5 ratio AO ADM SS ALP [Catalytic activity/Vol] 73 U/L Normal 40 - 135 U/L AO ADM SS ALT With P-5'-P [Catalytic activity/Vol] 23 U/L Normal 16 - 63 U/L AO ADM SS AST With P-5'-P [Catalytic activity/Vol] 15 U/L Normal 10 - 40 U/L AO ADM SS Basophil, Absolute 0.0 103/mcL Normal 0.0 - 0.2 10^3/mcL AO Workflow SS Basophils/100 WBC (Bld) 0.6 % Normal 0.0 - 2.5 % AO Workflow SS Bilirubin [Mass/Vol] 1.0 mg/dL Normal 0.2 - 1 .0 mg/dL AO ADM SS Comment on above: Interpretive Data: U se of this assay is not recommended for patients undergoing treatment with eltrombopag due to the potential for falsely elevated results. Calcium [Mass/Vol] 8.7 mg/dL Normal 8.4 - 10. 2 mg/dL AO ADM SS Chloride [Moles/Vol] 102 mmol/L Normal 98 - 10 7 mmol/L AO ADM SS CO2 [Moles/Vol] 33 mmol/L High 23 - 31 mmol/L AO ADM SS Creatinine [Mass/Vol] 1.40 mg/dL High 0.70 - 1.30 mg/dL AO ADM SS Electrolyte Balance 6.0 mEq/L Normal 4.0 - 15 .0 mEq/L AO ADM SS Eosinophil, Absolute 0.0 103/mcL Normal 0.0 - 0 .4 10^3/mcL AO Workflow SS Eosinophils/100 WBC (Bld) 0.4 % Normal 0.0 - 7.0 % AO Workflow SS Erythrocyte distribution width (RBC) [Ratio] 13.9 % Normal 11.5 - 14.5 % AO Workflow SS GFR/1.73 sq M.predicted among blacks MDRD (S/P/Bld) [Vol rate/Area] 62 ml/min/1.73sqm Invalid Interpretation Code AO Chemistry S Comment on above: Interpretive Data: GFR Population mean for , Non- Americans Ages 20-29 = 116 mL/min/1.73 sq.m. Ages 30-39 = 107 mL/min/1.73 sq.m. Ages 40-49 = 99 mL/min/1.73 sq.m. Ages 50-59 = 93 mL/min/1.73 sq.m. Ages 60-69 = 85 mL/min/1.73 sq.m. Ages 70+ = 75 mL/min/1.73 sq.m. Chronic Kidney Disease: Less than 60 mL/min/1.73 square meters End Stage Renal Disease: Less than 15 mL/min/1.73 square meters GFR/1.73 sq M.predicted among non-blacks MDRD (S/P/Bld) [Vol rate/Area] 51 ml/min/1.73sqm Invalid Interpretation Code AO Chemistry S Comment on above: Interpretive Data: GFR Population mean for , Non- Americans Ages 20-29 = 116 mL/min/1.73 sq.m. Ages 30-39 = 107 mL/min/1.73 sq.m. Ages 40-49 = 99 mL/min/1.73 sq.m. Ages 50-59 = 93 mL/min/1.73 sq.m. Ages 60-69 = 85 mL/min/1.73 sq.m. Ages 70+ = 75 mL/min/1.73 sq.m. Chronic Kidney Disease: Less than 60 mL/min/1.73 square meters End Stage Renal Disease: Less than 15 mL/min/1.73 square meters Globulin 2.7 G/dL Invalid Interpretation Code AO ADM SS Glucose [Mass/Vol] 127 mg/dL High 80 - 115 mg/dL AO ADM SS Hematocrit (Bld) [Volume fraction] 39.0 % Low 42.0 - 52.0 % AO Workflow SS Hemoglobin (Bld) [Mass/Vol] 13.8 G/dL Low 14.0 - 18.0 G/dL AO Workflow SS Lactate [Moles/Vol] 0.9 mmol/L Normal 0.4 - 2. 0 mmol/L AO ADM SS Lymphocyte, Absolute 0.6 103/mcL Low 0.8 - 3 .9 10^3/mcL AO Workflow SS Lymphocytes/100 WBC (Bld) 8.5 % Low 10.0 - 50.0 % AO Workflow SS MCH (RBC) [Entitic mass] 33.8 pg High 27.0 - 31.2 pg AO Workflow SS MCHC 35.5 G/dL High 31.8 - 35.4 G/dL AO Workflow SS MCV (RBC) [Entitic vol] 95.4 fL High 80.0 - 94.0 fL AO Workflow SS Monocyte distribution width Auto (Bld) [Entitic vol] 16.69 1 Normal 0.00 - 20.00 AO Workflow SS Comment on above: Result Comment: For ED adult patients suspected of sepsis, MDW<=20.0 does not rule out sepsis or risk of sepsis Monocyte, Absolute 0.5 103/mcL Normal 0.2 - 1.0 10^3/mcL AO Workflow SS Monocytes/100 WBC (Bld) 6.7 % Normal 1.7 - 13.0 % AO Workflow SS Neutrophil, Absolute 5.8 103/mcL Normal 2.9 - 6 .2 10^3/mcL AO Workflow SS Neutrophils/100 WBC (Bld) 83.8 % High 37.0 - 80.0 % AO Workflow SS Platelet mean volume (Bld) [Entitic vol] 9.4 fL Normal 7.4 - 10.4 fL AO Workflow SS Platelets (Bld) [#/Vol] 201 103/mcL Normal 130 - 400 10^3/mcL AO Workflow SS Potassium [Moles/Vol] 4.5 mmol/L Normal 3.5 - 5.1 mmol/L AO ADM SS Protein [Mass/Vol] 6.5 G/dL Normal 6.4 - 8.2 G/dL AO ADM SS RBC (Bld) [#/Vol] 4.09 106/mcL Normal 4.04 - 6.1 3 10^6/mcL AO Workflow SS Sodium [Moles/Vol] 141 mmol/L Normal 136 - 145 mmol/L AO ADM SS Urea nitrogen [Mass/Vol] 12 mg/dL Normal 7 - 18 mg/dL AO ADM SS Urea nitrogen/Creatinine [Mass ratio] 9 ratio Normal 7 - 27 ratio AO ADM SS WBC (Bld) [#/Vol] 6.9 103/mcL Normal 4.6 - 10.8 10^3/mcL AO Workflow SS LACon 06-12-2023 Lactic Acid Lvl 0.9 mmol/L Normal 0.4-2.0 [facility] ([place]) Comment on above: Performed By: #### A SARI SANCHES, ALC, CBC, BMP, ADIFF, GFR #### [address] [address] PROon 06-12-2023 PT Coag (PPP) [Time] 12.1 s Normal 9.0-14.2 [facility] ([place]) Comment on above: Performed By: #### A SARI SANCHES, ALC, CBC, BMP, ADIFF, GFR #### [address] [address] PT International Ratio 1.1 Normal [facility] ([place]) Comment on above: Result Comment: [employer] (CHEST, 1992, 102:312S-25S) recommended therapeutic range for oral anticoagulant therapy is: LOW RISK: Prophylaxis of venous thrombosis INR: 2.0-3.0 Treatment of pulmonary embolism 2.0-3.0 Prevention of systemic embolism 2.0-3.0 HIGH RISK: Mechanical prosthetic valves 2.5-3.5 Performed By: #### A SARI SANCHES, ALC, CBC, BMP, ADIFF, GFR #### [address] [address] UAon 06-12-2023 Color (U) Yellow Normal [facility] ([place]) Comment on above: Performed By: #### A DIFF, CBC, GFR, BMP, SARI HENDRIX #### [address] [address] Glucose (U) [Mass/Vol] Negative Normal Negative [facility] ([place]) Comment on above: Performed By: #### A DIFF, CBC, GFR, NANCI, SARI HENDRIX #### [address] [address] Ketones Ql (U) Negative Normal Negative [facility] ([place]) Comment on above: Performed By: #### A DIFF, CBC, GFR, NANCI, SARI HENDRIX #### [address] [address] UA Appear Clear Normal Clear [facility] ([place]) Comment on above: Performed By: #### A DIFF, CBC, GFR, NANCI, SARI HENDRIX #### [address] [address] UA Blood Small Abnormal Negative [facility] ([place]) Comment on above: Performed By: #### A DIFF, CBC, GFR, NANCI, SARI HENDRIX #### [address] [address] UA Leuk Est Negative Normal Negative [facility] ([place]) Comment on above: Performed By: #### A DIFF, CBC, GFR, NANCI, SARI HENDRIX #### [address] [address] UA Nitrite Negative Normal Negative [facility] ([place]) Comment on above: Performed By: #### A DIFF, CBC, GFR, NANCI, SARI HENDRIX #### [address] [address] UA pH 6.5 Normal 5.0 - 8.0 [facility] ([place]) Comment on above: Performed By: #### A DIFF, CBC, GFR, SIMEON CHRISTINE MDW #### [address] [address] UA Protein 30 mg/dL Normal Negative [facility] ([place]) Comment on above: Performed By: #### A DIFF, CBC, GFR, NANCI, SARI HENDRIX #### [id number] [place], [place] [address] UA Spec Grav 1.020 Normal 1.015-1.025 [facility] ([place]) Comment on above: Performed By: #### A DIFF, CBC, GFR, BMP, SIMEON, SARI #### [id number] [place], [place] [address] UA Specimen Type Clean Catch Normal [facility] ([place]) Comment on above: Performed By: #### A DIFF, CBC, GFR, BMP, ANEU, SARI #### [address] [address] UA Urobilinogen 1.0 E.U./dL Normal 0.2-1.0 [facility] ([place]) Comment on above: Performed By: #### A DIFF, CBC, GFR, BMP, SARI HENDRIX #### [id number] [place], [place] [address] Urobilinogen (U) [Mass/Vol] Negative Normal Negative [facility] ([place]) Comment on above: Performed By: #### A DIFF, CBC, GFR, BMP, SARI HENDRIX #### [address] [address] XR CHEST 1 VIEWon 06-12-2023 XR CHEST 1 VIEW ORIGINAL EXAMINATION: ONE XRAY VIEW OF THE CHEST06/12/2023 6:50 pm COMPARISON: 05/31/2023 HISTORY: ORDERING SYSTEM PROVIDED HISTORY: Reason for Exam: hypotension, r/o infection FINDINGS: The cardiomediastinal contours are normal.The lungs are emphysematous. There is no consolidation, vascular congestion, pleural effusion, or pneumothorax. There are no acute abnormalities to osseous structures. IMPRESSION: No acute radiographic findings. Interpreted by: Chucho Willams DO Preliminary Report By: Chucho Willams DO Electronically signed By Chucho Willams DO Dictated Date: 06/12/2023 7:02:28 PM Prelim Date: 06/12/2023 7:02:51 PM Sign Date: 06/12/2023 7:02:51 PM Ordering Provider: CARIDAD Marrero [facility] ([place]) .Auto Diffon 05-31-2023 Basophil, Absolute 0.0 10 3/mcL Normal 0.0-0.2 [facility] ([place]) Comment on above: Performed By: #### A DIFF, CBC, GFR, BMP, ANEUSARI #### [address] [address] Basophils/100 WBC (Bld) 0.4 % Normal 0.0-2.5 A [facility] ([place]) Comment on above: Performed By: #### A DIFF, CBC, GFR, BMP, ANEU, W #### [address] [address] Eosinophil, Absolute 0.1 10 3/mcL Normal 0.0-0.4 [facility] ([place]) Comment on above: Performed By: #### A DIFF, CBC, GFR, BMP, ANEU, SARI #### [address] [address] Eosinophils/100 WBC (Bld) 1.4 % Normal 0.0-7.0 [facility] ([place]) Comment on above: Performed By: #### A DIFF, CBC, GFR, BMP, ANEUMDW #### [address] [address] Lymphocyte, Absolute 0.4 10 3/mcL Low 0.8-3.9 [facility] ([place]) Comment on above: Performed By: #### A DIFF, CBC, GFR, BMP, ANEU, W #### [address] [address] Lymphocytes/100 WBC (Bld) 12.1 % Normal 10.0-50.0 [facility] ([place]) Comment on above: Performed By: #### A DIFF, CBC, GFR, BMP, ANEUSARI #### [address] [address] Monocyte, Absolute 0.4 10 3/mcL Normal 0.2-1.0 [facility] ([place]) Comment on above: Performed By: #### A DIFF, CBC, GFR, BMP, ANEU, W #### [address] [address] Monocytes/100 WBC (Bld) 9.9 % Normal 1.7-13.0 A [facility] ([place]) Comment on above: Performed By: #### A DIFF, CBC, GFR, SIMEON CHRISTINE MDW #### [address] [address] Neutrophils/100 WBC (Bld) 76.2 % Normal 37.0-80.0 [facility] ([place]) Comment on above: Performed By: #### A DIFF, CBC, GFR, SIMEON CHRISTINE MDW #### [address] [address] .GFRon 05-31-2023 GFR 72 ml/min/1.73sqm Normal [facility] ([place]) Comment on above: Result Comment: GFR Population mean for , Non- Americans Ages 20-29 = 116 mL/min/1.73 sq.m. Ages 30-39 = 107 mL/min/1.73 sq.m. Ages 40-49 = 99 mL/min/1.73 sq.m. Ages 50-59 = 93 mL/min/1.73 sq.m. Ages 60-69 = 85 mL/min/1.73 sq.m. Ages 70+ = 75 mL/min/1.73 sq.m. Chronic Kidney Disease: Less than 60 mL/min/1.73 square meters End Stage Renal Disease: Less than 15 mL/min/1.73 square meters Performed By: #### A DIFF, CBC, GFR, SIMEON CHRISTINE MDW #### [address] [address] GFR Non- 60 ml/min/1.73sqm Normal [facility] ([place]) Comment on above: Result Comment: GFR Population mean for , Non- Americans Ages 20-29 = 116 mL/min/1.73 sq.m. Ages 30-39 = 107 mL/min/1.73 sq.m. Ages 40-49 = 99 mL/min/1.73 sq.m. Ages 50-59 = 93 mL/min/1.73 sq.m. Ages 60-69 = 85 mL/min/1.73 sq.m. Ages 70+ = 75 mL/min/1.73 sq.m. Chronic Kidney Disease: Less than 60 mL/min/1.73 square meters End Stage Renal Disease: Less than 15 mL/min/1.73 square meters Performed By: #### A DIFF, CBC, GFR, BMP, ANEU, SARI #### [address] [address] .MDWon 05-31-2023 Monocyte Distribution Width 18.08 Normal 0.00-20.00 [facility] ([place]) Comment on above: Result Comment: For ED adult patients suspected of sepsis, MDW<=20.0 does not rule out sepsis or risk of sepsis Performed By: #### A DIFF, CBC, GFR, BMP, ANEUSARI #### [address] [address] .NEUABSon 05-31-2023 Neutrophil, Absolute 2.8 10 3/mcL Low 2.9-6.2 [facility] ([place]) Comment on above: Performed By: #### A DIFF, CBC, GFR, BMP, SARI HENDRIX #### [address] [address] BMPon 05-31-2023 BUN/Creatinine Ratio 8 ratio Normal 7-27 [facility] ([place]) Comment on above: Performed By: #### A DIFF, CBC, GFR, BMP, ANEUSARI #### [address] [address] Calcium [Mass/Vol] 8.4 mg/dL Normal 8.4-10.2 [facility] ([place]) Comment on above: Performed By: #### A DIFF, CBC, GFR, BMP, ANEUSARI #### [address] [address] Chloride [Moles/Vol] 103 mmol/L Normal 98-107 [facility] ([place]) Comment on above: Performed By: #### A DIFF, CBC, GFR, BMP, ANEU, W #### [address] [address] CO2 [Moles/Vol] 33 mmol/L High 23-31 [facility] ([place]) Comment on above: Performed By: #### A DIFF, CBC, GFR, BMP, SARI HENDRIX #### [address] [address] Creatinine [Mass/Vol] 1.22 mg/dL Normal 0.70-1.30 [facility] ([place]) Comment on above: Performed By: #### A DIFF, CBC, GFR, BMP, SARI HENDRIX #### [address] [address] Electrolyte Balance 7.0 mEq/L Normal 4.0-15.0 [facility] ([place]) Comment on above: Performed By: #### A DIFF, CBC, GFR, NANCI, SARI HENDRIX #### [address] [address] Glucose [Mass/Vol] 100 mg/dL Normal 80-115 [facility] ([place]) Comment on above: Performed By: #### A DIFF, CBC, GFR, BMP, SARI HENDRIX #### [address] [address] Potassium [Moles/Vol] 3.9 mmol/L Normal 3.5-5.1 [facility] ([place]) Comment on above: Performed By: #### A DIFF, CBC, GFR, BMP, SARI HENDRIX #### [address] [address] Sodium [Moles/Vol] 143 mmol/L Normal 136-145 [facility] ([place]) Comment on above: Performed By: #### A DIFF, CBC, GFR, BMP, SARI HENDRIX #### [address] [address] Urea nitrogen [Mass/Vol] 10 mg/dL Normal 7-18 [facility] ([place]) Comment on above: Performed By: #### A DIFF, CBC, GFR, BMP, SARI HENDRIX #### [address] [address] CBCon 05-31-2023 Erythrocyte distribution width (RBC) [Ratio] 13.9 % Normal 11.5-14.5 [facility] ([place]) Comment on above: Performed By: #### A DIFF, CBC, GFR, BMP, SARI HENDRIX #### [address] [address] Hematocrit (Bld) [Volume fraction] 37.9 % Low 42.0-52.0 [facility] ([place]) Comment on above: Performed By: #### A DIFF, CBC, GFR, BMP, SARI HENDRIX #### [address] [address] Hgb 13.5 G/dL Low 14.0-18.0 [facility] ([place]) Comment on above: Performed By: #### A DIFF, CBC, GFR, BMP, SARI HENDRIX #### [address] [address] MCH (RBC) [Entitic mass] 33.8 pg High 27.0-31.2 [facility] ([place]) Comment on above: Performed By: #### A DIFF, CBC, GFR, BMP, SARI HENDRIX #### [address] [address] MCHC 35.6 G/dL High 31.8-35.4 [facility] ([place]) Comment on above: Performed By: #### A DIFF, CBC, GFR, BMP, SARI HENDRIX #### [address] [address] MCV (RBC) [Entitic vol] 94.9 fL High 80.0-94.0 [facility] ([place]) Comment on above: Performed By: #### A DIFF, CBC, GFR, BMP, SARI HENDRIX #### [address] [address] Platelet 143 10 3/mcL Normal 130-400 [facility] ([place]) Comment on above: Performed By: #### A DIFF, CBC, GFR, BMP, SARI HENDRIX #### [address] [address] Platelet mean volume (Bld) [Entitic vol] 9.0 fL Normal 7.4-10.4 [facility] ([place]) Comment on above: Performed By: #### A DIFF, CBC, GFR, BMP, SARI HENDRIX #### [address] [address] RBC 3.99 10 6/mcL Low 4.04-6.13 [facility] ([place]) Comment on above: Performed By: #### A DIFF, CBC, GFR, BMP, SARI HENDRIX #### [facility] [address] [address] WBC 3.7 10 3/mcL Low 4.6-10.8 [facility] ([place]) Comment on above: Performed By: #### A DIFF, CBC, GFR, BMPSIMEON MDW #### [address] [address] LABORATORYOrdered By: SYSTEM SYSTEM on 05-31-2023 Basophil, Absolute 0.0 103/mcL Normal 0.0 - 0.2 10^3/mcL AO Workflow SS Basophils/100 WBC (Bld) 0.4 % Normal 0.0 - 2.5 % AO Workflow SS Calcium [Mass/Vol] 8.4 mg/dL Normal 8.4 - 10. 2 mg/dL AO ADM SS Chloride [Moles/Vol] 103 mmol/L Normal 98 - 10 7 mmol/L AO ADM SS CO2 [Moles/Vol] 33 mmol/L High 23 - 31 mmol/L AO ADM SS Creatinine [Mass/Vol] 1.22 mg/dL Normal 0.70 - 1.30 mg/dL AO ADM SS Electrolyte Balance 7.0 mEq/L Normal 4.0 - 15 .0 mEq/L AO ADM SS Eosinophil, Absolute 0.1 103/mcL Normal 0.0 - 0 .4 10^3/mcL AO Workflow SS Eosinophils/100 WBC (Bld) 1.4 % Normal 0.0 - 7.0 % AO Workflow SS Erythrocyte distribution width (RBC) [Ratio] 13.9 % Normal 11.5 - 14.5 % AO Workflow SS GFR/1.73 sq M.predicted among blacks MDRD (S/P/Bld) [Vol rate/Area] 72 ml/min/1.73sqm Invalid Interpretation Code AO Chemistry S Comment on above: Interpretive Data: GFR Population mean for , Non- Americans Ages 20-29 = 116 mL/min/1.73 sq.m. Ages 30-39 = 107 mL/min/1.73 sq.m. Ages 40-49 = 99 mL/min/1.73 sq.m. Ages 50-59 = 93 mL/min/1.73 sq.m. Ages 60-69 = 85 mL/min/1.73 sq.m. Ages 70+ = 75 mL/min/1.73 sq.m. Chronic Kidney Disease: Less than 60 mL/min/1.73 square meters End Stage Renal Disease: Less than 15 mL/min/1.73 square meters GFR/1.73 sq M.predicted among non-blacks MDRD (S/P/Bld) [Vol rate/Area] 60 ml/min/1.73sqm Invalid Interpretation Code AO Chemistry S Comment on above: Interpretive Data: GFR Population mean for , Non- Americans Ages 20-29 = 116 mL/min/1.73 sq.m. Ages 30-39 = 107 mL/min/1.73 sq.m. Ages 40-49 = 99 mL/min/1.73 sq.m. Ages 50-59 = 93 mL/min/1.73 sq.m. Ages 60-69 = 85 mL/min/1.73 sq.m. Ages 70+ = 75 mL/min/1.73 sq.m. Chronic Kidney Disease: Less than 60 mL/min/1.73 square meters End Stage Renal Disease: Less than 15 mL/min/1.73 square meters Glucose [Mass/Vol] 100 mg/dL Normal 80 - 115 mg/dL AO ADM SS Hematocrit (Bld) [Volume fraction] 37.9 % Low 42.0 - 52.0 % AO Workflow SS Hemoglobin (Bld) [Mass/Vol] 13.5 G/dL Low 14.0 - 18.0 G/dL AO Workflow SS Lymphocyte, Absolute 0.4 103/mcL Low 0.8 - 3 .9 10^3/mcL AO Workflow SS Lymphocytes/100 WBC (Bld) 12.1 % Normal 10.0 - 50.0 % AO Workflow SS MCH (RBC) [Entitic mass] 33.8 pg High 27.0 - 31.2 pg AO Workflow SS MCHC 35.6 G/dL High 31.8 - 35.4 G/dL AO Workflow SS MCV (RBC) [Entitic vol] 94.9 fL High 80.0 - 94.0 fL AO Workflow SS Monocyte distribution width Auto (Bld) [Entitic vol] 18.08 1 Normal 0.00 - 20.00 AO Workflow SS Comment on above: Result Comment: For ED adult patients suspected of sepsis, MDW<=20.0 does not rule out sepsis or risk of sepsis Monocyte, Absolute 0.4 103/mcL Normal 0.2 - 1.0 10^3/mcL AO Workflow SS Monocytes/100 WBC (Bld) 9.9 % Normal 1.7 - 13.0 % AO Workflow SS Natriuretic peptide.B prohormone N-Terminal [Mass/Vol] pg/mL Normal 0 - 125 pg/mL AO ADM SS Comment on above: Interpretive Data: N T-proBNP results of less than 300 pg/mL effectively rules out acute congestive heart failure with 99% negative predictive value. Neutrophil, Absolute 2.8 103/mcL Low 2.9 - 6 .2 10^3/mcL AO Workflow SS Neutrophils/100 WBC (Bld) 76.2 % Normal 37.0 - 80.0 % AO Workflow SS Platelet mean volume (Bld) [Entitic vol] 9.0 fL Normal 7.4 - 10.4 fL AO Workflow SS Platelets (Bld) [#/Vol] 143 103/mcL Normal 130 - 400 10^3/mcL AO Workflow SS Potassium [Moles/Vol] 3.9 mmol/L Normal 3.5 - 5.1 mmol/L AO ADM SS RBC (Bld) [#/Vol] 3.99 106/mcL Low 4.04 - 6.1 3 10^6/mcL AO Workflow SS Sodium [Moles/Vol] 143 mmol/L Normal 136 - 145 mmol/L AO ADM SS Troponin I.cardiac DL <= 0.01 ng/mL [Mass/Vol] ng/L Normal 0 - 76 ng/L AO ADM SS Comment on above: Interpretive Data: H igh Sensitive Troponin I Reference Ranges: Female: 0-51 ng/L Male: 0-76 ng/L Testing performed on [address] using a homogeneous sandwich chemiluminescent immunoassay based on [employer] technology. Urea nitrogen [Mass/Vol] 10 mg/dL Normal 7 - 18 mg/dL AO ADM SS Urea nitrogen/Creatinine [Mass ratio] 8 ratio Normal 7 - 27 ratio AO ADM SS WBC (Bld) [#/Vol] 3.7 103/mcL Low 4.6 - 10.8 10^3/mcL AO Workflow SS PBNPon 05-31-2023 N-Terminal proBNP <5 Normal 0-125 [facility] ([place]) Comment on above: Result Comment: NT-p roBNP results of less than 300 pg/mL effectively rules out acute congestive heart failure with 99% negative predictive value. Performed By: #### A DIFF, CBC, GFR, BMP, SARI HENDRIX #### [address] [address] TROPHSon 05-31-2023 High Sensitivity Troponin I <4 Normal 0-76 [facility] ([place]) Comment on above: Result Comment: High Sensitive Troponin I Reference Ranges: Female: 0-51 ng/L Male: 0-76 ng/L Testing performed on [address] using a homogeneous sandwich chemiluminescent immunoassay based on [employer] technology. Performed By: #### A DIFF, CBC, GFR, BMP, SARI HENDRIX #### [place] [address] [address] XR CHEST 2 VIEWSon XR CHEST 2 VIEWS ORIGINAL HISTORY: Short of breath, cough, fever COMPARISON: No FINDINGS: The lungs and pleural spaces are clear. The cardiac silhouette is within normal limits. The pulmonary vasculature is within normal limits. IMPRESSION: Clear lungs. Interpreted by: Adan Membreno MD Preliminary Report By: Adan Membreno MD Electronically signed By Adan Membreno MD Dictated Date: 05/31/2023 11:55:15 AM Prelim Date: 05/31/2023 11:55:32 AM Sign Date: 05/31/2023 11:55:32 AM Ordering Provider: FELI Marrero [facility] ([place]) .Auto Diffon 05-10-2023 Basophil, Absolute 0.0 10 3/mcL Normal 0.0-0.2 [facility] ([place]) Comment on above: Performed By: #### A MD MYRONW, ALC, CBC, BMP, ADIFF, GFR #### [address] [address] Basophils/100 WBC (Bld) 0.8 % Normal 0.0-2.5 A [facility] ([place]) Comment on above: Performed By: #### A MD MYRONW, ALC, CBC, BMP, ADIFF, GFR #### [address] [address] Eosinophil, Absolute 0.1 10 3/mcL Normal 0.0-0.4 [facility] ([place]) Comment on above: Performed By: #### A MD MYRONW, ALC, CBC, BMP, ADIFF, GFR #### [address] [address] Eosinophils/100 WBC (Bld) 1.9 % Normal 0.0-7.0 [facility] ([place]) Comment on above: Performed By: #### A MD MYRONW, ALC, CBC, BMP, ADIFF, GFR #### [address] [address] Lymphocyte, Absolute 1.3 10 3/mcL Normal 0.8-3.9 [facility] ([place]) Comment on above: Performed By: #### A SARI SANCHES, ALC, CBC, BMP, ADIFF, GFR #### [address] [address] Lymphocytes/100 WBC (Bld) 28.6 % Normal 10.0-50.0 [facility] ([place]) Comment on above: Performed By: #### A MD MYRONW, ALC, CBC, BMP, ADIFF, GFR #### [address] [address] Monocyte, Absolute 0.4 10 3/mcL Normal 0.2-1.0 [facility] ([place]) Comment on above: Performed By: #### A MD MYRONW, ALC, CBC, BMP, ADIFF, GFR #### [address] [address] Monocytes/100 WBC (Bld) 8.8 % Normal 1.7-13.0 A [facility] ([place]) Comment on above: Performed By: #### A MD MYRONW, ALC, CBC, BMP, ADIFF, GFR #### [address] [address] Neutrophils/100 WBC (Bld) 59.9 % Normal 37.0-80.0 [facility] ([place]) Comment on above: Performed By: #### A SARI SANCHES, ALC, CBC, BMP, ADIFF, GFR #### [address] [address] .GFRon 05-10-2023 GFR 82 ml/min/1.73sqm Normal [facility] ([place]) Comment on above: Result Comment: GFR Population mean for , Non- Americans Ages 20-29 = 116 mL/min/1.73 sq.m. Ages 30-39 = 107 mL/min/1.73 sq.m. Ages 40-49 = 99 mL/min/1.73 sq.m. Ages 50-59 = 93 mL/min/1.73 sq.m. Ages 60-69 = 85 mL/min/1.73 sq.m. Ages 70+ = 75 mL/min/1.73 sq.m. Chronic Kidney Disease: Less than 60 mL/min/1.73 square meters End Stage Renal Disease: Less than 15 mL/min/1.73 square meters Performed By: #### A SARI SANCHES, STEFANI, CBC, BMP, ADIFF, GFR #### [address] [address] GFR Non- 67 ml/min/1.73sqm Normal [facility] ([place]) Comment on above: Result Comment: GFR Population mean for , Non- Americans Ages 20-29 = 116 mL/min/1.73 sq.m. Ages 30-39 = 107 mL/min/1.73 sq.m. Ages 40-49 = 99 mL/min/1.73 sq.m. Ages 50-59 = 93 mL/min/1.73 sq.m. Ages 60-69 = 85 mL/min/1.73 sq.m. Ages 70+ = 75 mL/min/1.73 sq.m. Chronic Kidney Disease: Less than 60 mL/min/1.73 square meters End Stage Renal Disease: Less than 15 mL/min/1.73 square meters Performed By: #### A SARI SANCHES, ALC, CBC, BMP, ADIFF, GFR #### [place] [address] .NEUABSon 05-10-2023 Neutrophil, Absolute 2.7 10 3/mcL Low 2.9-6.2 [facility] ([place]) Comment on above: Performed By: #### A SARI SANCHES, ALC, CBC, BMP, ADIFF, GFR #### [place] [address] A1Con 05-10-2023 HbA1c (Bld) [Mass fraction] 5.6 % Normal 4.3-6.4 [facility] ([place]) Comment on above: Performed By: #### A SARI SANCHES, STEFANI, CBC, BMP, ADIFF, GFR #### [place] [address] CBCon 05-10-2023 Erythrocyte distribution width (RBC) [Ratio] 14.0 % Normal 11.5-14.5 [facility] ([place]) Comment on above: Performed By: #### A SARI SANCHES, ALC, CBC, BMP, ADIFF, GFR #### [place] [address] Hematocrit (Bld) [Volume fraction] 43.7 % Normal 42.0-52.0 [facility] ([place]) Comment on above: Performed By: #### A SARI SANCHES, ALC, CBC, BMP, ADIFF, GFR #### [place] [address] Hgb 15.3 G/dL Normal 14.0-18.0 [facility] ([place]) Comment on above: Performed By: #### A SARI SANCHES, ALC, CBC, BMP, ADIFF, GFR #### [place] [address] MCH (RBC) [Entitic mass] 33.7 pg High 27.0-31.2 [facility] ([place]) Comment on above: Performed By: #### A SARI SANCHES, ALC, CBC, BMP, ADIFF, GFR #### [address] [address] MCHC 35.0 G/dL Normal 31.8-35.4 [facility] ([place]) Comment on above: Performed By: #### A SARI SANCHES, ALC, CBC, BMP, ADIFF, GFR #### [address] [address] MCV (RBC) [Entitic vol] 96.4 fL High 80.0-94.0 A [facility] ([place]) Comment on above: Performed By: #### A SARI SANCHES, STEFANI, CBC, BMP, ADIFF, GFR #### [address] [address] Platelet 175 10 3/mcL Normal 130-400 [facility] ([place]) Comment on above: Performed By: #### A SARI SANCHES, STEFANI, CBC, BMP, ADIFF, GFR #### [address] [address] Platelet mean volume (Bld) [Entitic vol] 9.5 fL Normal 7.4-10.4 [facility] ([place]) Comment on above: Performed By: #### A SARI SANCHES, STEFANI, CBC, BMP, ADIFF, GFR #### [address] [address] RBC 4.53 10 6/mcL Normal 4.04-6.13 [facility] ([place]) Comment on above: Performed By: #### A SARI SANCHES, ALC, CBC, BMP, ADIFF, GFR #### [address] [address] WBC 4.5 10 3/mcL Low 4.6-10.8 [facility] ([place]) Comment on above: Performed By: #### A SARI SANCHES, ALC, CBC, BMP, ADIFF, GFR #### [address] [address] CMPon 05-10-2023 Albumin Level 3.7 G/dL Normal 3.4-4.8 [facility] ([place]) Comment on above: Performed By: #### A SARI SANCHES, ALC, CBC, BMP, ADIFF, GFR #### [address] [address] Albumin/Globulin [Mass ratio] 1.2 {ratio} Normal 1.1-2.5 [facility] ([place]) Comment on above: Performed By: #### A SARI SANCHES, ALC, CBC, BMP, ADIFF, GFR #### [address] [address] ALP [Catalytic activity/Vol] 68 U/L Normal 40-135 [facility] ([place]) Comment on above: Performed By: #### A SARI SANCHES, ALC, CBC, BMP, ADIFF, GFR #### [place] [id number] ALT [Catalytic activity/Vol] 21 U/L Normal 16-63 [facility] ([place]) Comment on above: Performed By: #### A SARI SANCHES, ALC, CBC, BMP, ADIFF, GFR #### [address] [address] AST [Catalytic activity/Vol] 15 U/L Normal 10-40 [facility] ([place]) Comment on above: Performed By: #### A SARI SANCHES, ALC, CBC, BMP, ADIFF, GFR #### [address] [address] Bili Total 1.0 mg/dL Normal 0.2-1.0 [facility] ([place]) Comment on above: Result Comment: Use of this assay is not recommended for patients undergoing treatment with eltrombopag due to the potential for falsely elevated results. Performed By: #### A SARI SANCHES, ALC, CBC, BMP, ADIFF, GFR #### [address] [address] BUN/Creatinine Ratio 8 ratio Normal 7-27 [facility] ([place]) Comment on above: Performed By: #### A SARI SANCHES, ALC, CBC, BMP, ADIFF, GFR #### [place] [id number] Calcium [Mass/Vol] 8.8 mg/dL Normal 8.4-10.2 [facility] ([place]) Comment on above: Performed By: #### A SARI SANCHES, ALC, CBC, BMP, ADIFF, GFR #### [address] [address] Chloride [Moles/Vol] 100 mmol/L Normal 98-107 [facility] ([place]) Comment on above: Performed By: #### A SARI SANCHES, ALC, CBC, BMP, ADIFF, GFR #### [address] [address] CO2 [Moles/Vol] 34 mmol/L High 23-31 [facility] ([place]) Comment on above: Performed By: #### A SARI SANCHES, ALC, CBC, BMP, ADIFF, GFR #### [address] [address] Creatinine [Mass/Vol] 1.10 mg/dL Normal 0.70-1.30 [facility] ([place]) Comment on above: Performed By: #### A SARI SANCHES, ALC, CBC, BMP, ADIFF, GFR #### [address] [address] Electrolyte Balance 5.0 mEq/L Normal 4.0-15.0 [facility] ([place]) Comment on above: Performed By: #### A SARI SANCHES, ALC, CBC, BMP, ADIFF, GFR #### [address] [address] Globulin 3.1 G/dL Normal [facility] ([place]) Comment on above: Performed By: #### A SARI SANCHES, ALC, CBC, BMP, ADIFF, GFR #### [address] [address] Glucose [Mass/Vol] 166 mg/dL High 80-115 [facility] ([place]) Comment on above: Performed By: #### A SARI SANCHES, ALC, CBC, BMP, ADIFF, GFR #### [address] [address] Potassium [Moles/Vol] 4.3 mmol/L Normal 3.5-5.1 [facility] ([place]) Comment on above: Performed By: #### A SARI SANCHES, ALC, CBC, BMP, ADIFF, GFR #### [address] [address] Sodium [Moles/Vol] 139 mmol/L Normal 136-145 [facility] ([place]) Comment on above: Performed By: #### A SARI SANCHES, ALC, CBC, BMP, ADIFF, GFR #### [place] [address] Total Protein 6.8 G/dL Normal 6.4-8.2 [facility] ([place]) Comment on above: Performed By: #### A SARI SANCHES, ALC, CBC, BMP, ADIFF, GFR #### [place] [address] Urea nitrogen [Mass/Vol] 9 mg/dL Normal 7-18 [facility] ([place]) Comment on above: Performed By: #### A SARI SANCHES, ALC, CBC, BMP, ADIFF, GFR #### [place] [address] VIDHon 05-10-2023 Vit. D 25-Hydroxy 45.1 ng/mL Normal [facility] ([place]) Comment on above: Result Comment: Inte rpretive Values Based on Total 25(OH) Vitamin D: Deficient <20 ng/mL Insufficient 20 - <30 ng/mL Sufficient 30-100 ng/mL Performed By: #### A SARI SANCHES, ALC, CBC, BMP, ADIFF, GFR #### [address] [address] .Auto Diffon 04-09-2023 Basophil, Absolute 0.0 10 3/mcL Normal 0.0-0.2 [facility] ([place]) Comment on above: Performed By: #### A SARI SANCHES, ALC, CBC, BMP, ADIFF, GFR #### [place] [address] Basophils/100 WBC (Bld) 0.5 % Normal 0.0-2.5 A [facility] ([place]) Comment on above: Performed By: #### A MD MYRONW, ALC, CBC, BMP, ADIFF, GFR #### [address] [address] Eosinophil, Absolute 0.1 10 3/mcL Normal 0.0-0.4 [facility] ([place]) Comment on above: Performed By: #### A MD MYRONW, ALC, CBC, BMP, ADIFF, GFR #### [address] [address] Eosinophils/100 WBC (Bld) 1.5 % Normal 0.0-7.0 [facility] ([place]) Comment on above: Performed By: #### A MD MYRONW, ALC, CBC, BMP, ADIFF, GFR #### [address] [address] Lymphocyte, Absolute 1.1 10 3/mcL Normal 0.8-3.9 [facility] ([place]) Comment on above: Performed By: #### A SARI SANCHES, ALC, CBC, BMP, ADIFF, GFR #### [address] [address] Lymphocytes/100 WBC (Bld) 19.6 % Normal 10.0-50.0 [facility] ([place]) Comment on above: Performed By: #### A MD MYRONW, ALC, CBC, BMP, ADIFF, GFR #### [address] [address] Monocyte, Absolute 0.4 10 3/mcL Normal 0.2-1.0 [facility] ([place]) Comment on above: Performed By: #### A MD MYRONW, ALC, CBC, BMP, ADIFF, GFR #### [address] [address] Monocytes/100 WBC (Bld) 7.7 % Normal 1.7-13.0 A [facility] ([place]) Comment on above: Performed By: #### A MYRON, MDW, ALC, CBC, BMP, ADIFF, GFR #### [address] [address] Neutrophils/100 WBC (Bld) 70.7 % Normal 37.0-80.0 [facility] ([place]) Comment on above: Performed By: #### A SARI SANCHES, ALC, CBC, BMP, ADIFF, GFR #### [address] [address] .GFRon 04-09-2023 GFR 69 ml/min/1.73sqm Normal [facility] ([place]) Comment on above: Result Comment: GFR Population mean for , Non- Americans Ages 20-29 = 116 mL/min/1.73 sq.m. Ages 30-39 = 107 mL/min/1.73 sq.m. Ages 40-49 = 99 mL/min/1.73 sq.m. Ages 50-59 = 93 mL/min/1.73 sq.m. Ages 60-69 = 85 mL/min/1.73 sq.m. Ages 70+ = 75 mL/min/1.73 sq.m. Chronic Kidney Disease: Less than 60 mL/min/1.73 square meters End Stage Renal Disease: Less than 15 mL/min/1.73 square meters Performed By: #### A SARI SANCHES, ALC, CBC, BMP, ADIFF, GFR #### [address] [address] GFR Non- 57 ml/min/1.73sqm Normal [facility] ([place]) Comment on above: Result Comment: GFR Population mean for , Non- Americans Ages 20-29 = 116 mL/min/1.73 sq.m. Ages 30-39 = 107 mL/min/1.73 sq.m. Ages 40-49 = 99 mL/min/1.73 sq.m. Ages 50-59 = 93 mL/min/1.73 sq.m. Ages 60-69 = 85 mL/min/1.73 sq.m. Ages 70+ = 75 mL/min/1.73 sq.m. Chronic Kidney Disease: Less than 60 mL/min/1.73 square meters End Stage Renal Disease: Less than 15 mL/min/1.73 square meters Performed By: #### A SARI SANCHES, ALC, CBC, BMP, ADIFF, GFR #### [address] [address] .MDWon 04-09-2023 Monocyte Distribution Width 16.75 Normal 0.00-20.00 [facility] ([place]) Comment on above: Result Comment: For ED adult patients suspected of sepsis, MDW<=20.0 does not rule out sepsis or risk of sepsis Performed By: #### A SARI SANCHES, ALC, CBC, BMP, ADIFF, GFR #### [place] [address] .NEUABSon 04-09-2023 Neutrophil, Absolute 3.8 10 3/mcL Normal 2.9-6.2 [facility] ([place]) Comment on above: Performed By: #### A SARI SANCHES, ALC, CBC, BMP, ADIFF, GFR #### [place] [address] Martell 04-09-2023 Ethanol Level <3 Normal 0-3 [facility] ([place]) Comment on above: Performed By: #### A SARI SANCHES, ALC, CBC, BMP, ADIFF, GFR #### [place] [address] CBCon 04-09-2023 Erythrocyte distribution width (RBC) [Ratio] 13.7 % Normal 11.5-14.5 [facility] ([place]) Comment on above: Performed By: #### A SARI SANCHES, ALC, CBC, BMP, ADIFF, GFR #### [place] [address] Hematocrit (Bld) [Volume fraction] 43.8 % Normal 42.0-52.0 [facility] ([place]) Comment on above: Performed By: #### A SARI SANCHES, ALC, CBC, BMP, ADIFF, GFR #### [place] [address] Hgb 15.4 G/dL Normal 14.0-18.0 [facility] ([place]) Comment on above: Performed By: #### A SARI SANCHES, ALC, CBC, BMP, ADIFF, GFR #### [address] [address] MCH (RBC) [Entitic mass] 33.9 pg High 27.0-31.2 [facility] ([place]) Comment on above: Performed By: #### A SARI SANCHES, ALC, CBC, BMP, ADIFF, GFR #### [address] [address] MCHC 35.1 G/dL Normal 31.8-35.4 [facility] ([place]) Comment on above: Performed By: #### A SARI SANCHES, ALC, CBC, BMP, ADIFF, GFR #### [address] [address] MCV (RBC) [Entitic vol] 96.4 fL High 80.0-94.0 A [facility] ([place]) Comment on above: Performed By: #### A SARI SANCHES, ALC, CBC, BMP, ADIFF, GFR #### [address] [address] Platelet 176 10 3/mcL Normal 130-400 [facility] ([place]) Comment on above: Performed By: #### A SARI SANCHES, ALC, CBC, BMP, ADIFF, GFR #### [address] [address] Platelet mean volume (Bld) [Entitic vol] 8.8 fL Normal 7.4-10.4 [facility] ([place]) Comment on above: Performed By: #### A SARI SANCHES, ALC, CBC, BMP, ADIFF, GFR #### [address] [address] RBC 4.54 10 6/mcL Normal 4.04-6.13 [facility] ([place]) Comment on above: Performed By: #### A SARI SANCHES, ALC, CBC, BMP, ADIFF, GFR #### [address] [address] WBC 5.4 10 3/mcL Normal 4.6-10.8 [facility] ([place]) Comment on above: Performed By: #### A SARI SANCHES, ALC, CBC, BMP, ADIFF, GFR #### [address] [address] CMPon 04-09-2023 Albumin Level 3.8 G/dL Normal 3.4-4.8 [facility] ([place]) Comment on above: Performed By: #### A SARI SANCHES, ALC, CBC, BMP, ADIFF, GFR #### [address] [address] Albumin/Globulin [Mass ratio] 1.1 {ratio} Normal 1.1-2.5 [facility] ([place]) Comment on above: Performed By: #### A SARI SANCHES, ALC, CBC, BMP, ADIFF, GFR #### [address] [address] ALP [Catalytic activity/Vol] 70 U/L Normal 40-135 [facility] ([place]) Comment on above: Performed By: #### A SARI SANCHES, ALC, CBC, BMP, ADIFF, GFR #### [address] [address] ALT [Catalytic activity/Vol] 22 U/L Normal 16-63 [facility] ([place]) Comment on above: Performed By: #### A SARI SANCHES, ALC, CBC, BMP, ADIFF, GFR #### [address] [address] AST [Catalytic activity/Vol] 16 U/L Normal 10-40 [facility] ([place]) Comment on above: Performed By: #### A SARI SANCHES, ALC, CBC, BMP, ADIFF, GFR #### [address] [address] Bili Total 0.8 mg/dL Normal 0.2-1.0 [facility] ([place]) Comment on above: Result Comment: Use of this assay is not recommended for patients undergoing treatment with eltrombopag due to the potential for falsely elevated results. Performed By: #### A SARI SANCHES, ALC, CBC, BMP, ADIFF, GFR #### [address] [address] BUN/Creatinine Ratio 10 ratio Normal 7-27 [facility] ([place]) Comment on above: Performed By: #### A SARI SANCHES, ALC, CBC, BMP, ADIFF, GFR #### [address] [address] Calcium [Mass/Vol] 9.2 mg/dL Normal 8.4-10.2 [facility] ([place]) Comment on above: Performed By: #### A SARI SANCHES, ALC, CBC, BMP, ADIFF, GFR #### [address] [address] Chloride [Moles/Vol] 98 mmol/L Normal 98-107 [facility] ([place]) Comment on above: Performed By: #### A SARI SANCHES, ALC, CBC, BMP, ADIFF, GFR #### [address] [address] CO2 [Moles/Vol] 33 mmol/L High 23-31 [facility] ([place]) Comment on above: Performed By: #### A SARI SANCHES, ALC, CBC, BMP, ADIFF, GFR #### [address] [address] Creatinine [Mass/Vol] 1.27 mg/dL Normal 0.70-1.30 [facility] ([place]) Comment on above: Performed By: #### A SARI SANCHES, ALC, CBC, BMP, ADIFF, GFR #### [address] [address] Electrolyte Balance 7.0 mEq/L Normal 4.0-15.0 [facility] ([place]) Comment on above: Performed By: #### A SARI SANCHES, ALC, CBC, BMP, ADIFF, GFR #### [address] [address] Globulin 3.4 G/dL Normal [facility] ([place]) Comment on above: Performed By: #### A SARI SANCHES, ALC, CBC, BMP, ADIFF, GFR #### [address] [address] Glucose [Mass/Vol] 157 mg/dL High 80-115 [facility] ([place]) Comment on above: Performed By: #### A SARI SANCHES, ALC, CBC, BMP, ADIFF, GFR #### [address] [address] Potassium [Moles/Vol] 3.8 mmol/L Normal 3.5-5.1 [facility] ([place]) Comment on above: Performed By: #### A SARI SANCHES, ALC, CBC, BMP, ADIFF, GFR #### [address] [address] Sodium [Moles/Vol] 138 mmol/L Normal 136-145 [facility] ([place]) Comment on above: Performed By: #### A SARI SANCHES, ALC, CBC, BMP, ADIFF, GFR #### [address] [address] Total Protein 7.2 G/dL Normal 6.4-8.2 [facility]) Comment on above: Performed By: #### A SARI SANCHES, ALC, CBC, BMP, ADIFF, GFR #### [address] [address] Urea nitrogen [Mass/Vol] 13 mg/dL Normal 7-18 [facility]) Comment on above: Performed By: #### A SARI SANCHES, ALC, CBC, BMP, ADIFF, GFR #### [address] [address] CVFLURVon 04-09-2023 FLU A PCR Negative Normal Negative [facility] ([place]) Comment on above: Performed By: #### A DIFF, CBC, GFR, BMP, SARI HENDRIX #### [address] [address] FLU B PCR Negative Normal Negative [facility] ([place]) Comment on above: Performed By: #### A DIFF, CBC, GFR, BMP, SARI HENDRIX #### [address] [address] RSV PCR Negative Normal Negative [facility] ([place]) Comment on above: Performed By: #### A DIFF, CBC, GFR, BMP, SARI HENDRIX #### [place] [id number] [place], [place] [address] SARS-CoV-2 (COVID-19) RNA JENNIFER+probe Ql (Unsp spec) Negative Normal Negative [facility] ([place]) Comment on above: Result Comment: Resu lts from the Xpert Xpress CoV-2/Flu/RSV plus test should be correlated with the clinical history, epidemiological data, and other data available to the clinical evaluating the patient. Performance of the Xpert Xpress CoV-2/Flu/RSV plus test has only been established in nasopharyngeal swab specimen. Erroneous test results might occur from improper specimen collection, failure to follow the recommended sample collection, handling and storage procedures, technical error, or sample mix-up. False negative results may occur if a virus is present at a level below the analytical limit of detection. Viral nucleic acid may persist in vivo, independent of virus viability. Detection of analyte target(s) does not imply that the corresponding virus(es) are infectious or are the causative agents for clinical symptoms. Recent patient exposure to FluMist or other live attenuated influenza vaccines may cause inaccurate positive results. Performed By: #### A DIFF, CBC, GFR, BMP, SARI HENDRIX #### [place] [id number] [place], [place] [address] LABORATORYOrdered By: SYSTEM SYSTEM on 04-09-2023 Albumin BCP dye [Mass/Vol] 3.8 G/dL Normal 3.4 - 4.8 G/dL AO ADM SS Albumin/Globulin [Mass ratio] 1.1 {ratio} Normal 1.1 - 2.5 ratio AO ADM SS ALP [Catalytic activity/Vol] 70 U/L Normal 40 - 135 U/L AO ADM SS ALT With P-5'-P [Catalytic activity/Vol] 22 U/L Normal 16 - 63 U/L AO ADM SS AST With P-5'-P [Catalytic activity/Vol] 16 U/L Normal 10 - 40 U/L AO ADM SS Basophil, Absolute 0.0 103/mcL Normal 0.0 - 0.2 10^3/mcL AO Workflow SS Basophils/100 WBC (Bld) 0.5 % Normal 0.0 - 2.5 % AO Workflow SS Bilirubin [Mass/Vol] 0.8 mg/dL Normal 0.2 - 1 .0 mg/dL AO ADM SS Comment on above: Interpretive Data: U se of this assay is not recommended for patients undergoing treatment with eltrombopag due to the potential for falsely elevated results. Calcium [Mass/Vol] 9.2 mg/dL Normal 8.4 - 10. 2 mg/dL AO ADM SS Chloride [Moles/Vol] 98 mmol/L Normal 98 - 10 7 mmol/L AO ADM SS CO2 [Moles/Vol] 33 mmol/L High 23 - 31 mmol/L AO ADM SS Creatinine [Mass/Vol] 1.27 mg/dL Normal 0.70 - 1.30 mg/dL AO ADM SS Electrolyte Balance 7.0 mEq/L Normal 4.0 - 15 .0 mEq/L AO ADM SS Eosinophil, Absolute 0.1 103/mcL Normal 0.0 - 0 .4 10^3/mcL AO Workflow SS Eosinophils/100 WBC (Bld) 1.5 % Normal 0.0 - 7.0 % AO Workflow SS Erythrocyte distribution width (RBC) [Ratio] 13.7 % Normal 11.5 - 14.5 % AO Workflow SS Ethanol [Mass/Vol] mg/dL Normal 0 - 3 mg/dL AO AD M SS GFR/1.73 sq M.predicted among blacks MDRD (S/P/Bld) [Vol rate/Area] 69 ml/min/1.73sqm Invalid Interpretation Code AO Chemistry S Comment on above: Interpretive Data: GFR Population mean for , Non- Americans Ages 20-29 = 116 mL/min/1.73 sq.m. Ages 30-39 = 107 mL/min/1.73 sq.m. Ages 40-49 = 99 mL/min/1.73 sq.m. Ages 50-59 = 93 mL/min/1.73 sq.m. Ages 60-69 = 85 mL/min/1.73 sq.m. Ages 70+ = 75 mL/min/1.73 sq.m. Chronic Kidney Disease: Less than 60 mL/min/1.73 square meters End Stage Renal Disease: Less than 15 mL/min/1.73 square meters GFR/1.73 sq M.predicted among non-blacks MDRD (S/P/Bld) [Vol rate/Area] 57 ml/min/1.73sqm Invalid Interpretation Code AO Chemistry S Comment on above: Interpretive Data: GFR Population mean for , Non- Americans Ages 20-29 = 116 mL/min/1.73 sq.m. Ages 30-39 = 107 mL/min/1.73 sq.m. Ages 40-49 = 99 mL/min/1.73 sq.m. Ages 50-59 = 93 mL/min/1.73 sq.m. Ages 60-69 = 85 mL/min/1.73 sq.m. Ages 70+ = 75 mL/min/1.73 sq.m. Chronic Kidney Disease: Less than 60 mL/min/1.73 square meters End Stage Renal Disease: Less than 15 mL/min/1.73 square meters Globulin 3.4 G/dL Invalid Interpretation Code AO ADM SS Glucose [Mass/Vol] 157 mg/dL High 80 - 115 mg/dL AO ADM SS Hematocrit (Bld) [Volume fraction] 43.8 % Normal 42.0 - 52.0 % AO Workflow SS Hemoglobin (Bld) [Mass/Vol] 15.4 G/dL Normal 14.0 - 18.0 G/dL AO Workflow SS Lymphocyte, Absolute 1.1 103/mcL Normal 0.8 - 3 .9 10^3/mcL AO Workflow SS Lymphocytes/100 WBC (Bld) 19.6 % Normal 10.0 - 50.0 % AO Workflow SS MCH (RBC) [Entitic mass] 33.9 pg High 27.0 - 31.2 pg AO Workflow SS MCHC 35.1 G/dL Normal 31.8 - 35.4 G/dL AO Workflow SS MCV (RBC) [Entitic vol] 96.4 fL High 80.0 - 94.0 fL AO Workflow SS Monocyte distribution width Auto (Bld) [Entitic vol] 16.75 1 Normal 0.00 - 20.00 AO Workflow SS Comment on above: Result Comment: For ED adult patients suspected of sepsis, MDW<=20.0 does not rule out sepsis or risk of sepsis Monocyte, Absolute 0.4 103/mcL Normal 0.2 - 1.0 10^3/mcL AO Workflow SS Monocytes/100 WBC (Bld) 7.7 % Normal 1.7 - 13.0 % AO Workflow SS Neutrophil, Absolute 3.8 103/mcL Normal 2.9 - 6 .2 10^3/mcL AO Workflow SS Neutrophils/100 WBC (Bld) 70.7 % Normal 37.0 - 80.0 % AO Workflow SS Platelet mean volume (Bld) [Entitic vol] 8.8 fL Normal 7.4 - 10.4 fL AO Workflow SS Platelets (Bld) [#/Vol] 176 103/mcL Normal 130 - 400 10^3/mcL AO Workflow SS Potassium [Moles/Vol] 3.8 mmol/L Normal 3.5 - 5.1 mmol/L AO ADM SS Protein [Mass/Vol] 7.2 G/dL Normal 6.4 - 8.2 G/dL AO ADM SS RBC (Bld) [#/Vol] 4.54 106/mcL Normal 4.04 - 6.1 3 10^6/mcL AO Workflow SS Sodium [Moles/Vol] 138 mmol/L Normal 136 - 145 mmol/L AO ADM SS Urea nitrogen [Mass/Vol] 13 mg/dL Normal 7 - 18 mg/dL AO ADM SS Urea nitrogen/Creatinine [Mass ratio] 10 ratio Normal 7 - 27 ratio AO ADM SS WBC (Bld) [#/Vol] 5.4 103/mcL Normal 4.6 - 10.8 10^3/mcL AO Workflow SS LABORATORYOrdered By: Victoriano Rincon on 04-09-2023 Amphetamines Screen Ql (U) Negative *NA* (04/09/23 3:39 AM) Invalid Interpretation Code Negative AO ADM SS Barbiturates Screen Ql (U) Negative *NA* (04/09/23 3:39 AM) Invalid Interpretation Code Negative AO ADM SS Benzodiazepines Ql (U) Negative *NA* (04/09/23 3:39 AM) Invalid Interpretation Code Negative AO ADM SS Benzoylecgonine Screen Ql (U) Negative *NA* (04/09/23 3:39 AM) Invalid Interpretation Code Negative AO ADM SS Cannabinoids Screen Ql (U) Negative *NA* (04/09/23 3:39 AM) Invalid Interpretation Code Negative AO ADM SS Methadone Screen Ql (U) Negative *NA* (04/09/23 3:39 AM) Invalid Interpretation Code Negative AO ADM SS Opiates Screen Ql (U) Negative *NA* (04/09/23 3:39 AM) Invalid Interpretation Code Negative AO ADM SS Phencyclidine Ql (U) Negative *NA* (04/09/23 3:39 AM) Invalid Interpretation Code Negative AO ADM SS Urine Drugs screened: See Below 3 (04/09/23 3:39 AM) Normal AO Chemistry S Comment on above: Interpretive Data: T his drug screen is a presumptive screening only. No confirmation will be performed unless requested. Drugs screened include: Threshold Amphetamines/Methamphetamines 1,000 ng/mL Barbiturates 200 ng/mL Benzodiazepine metabolites 200 ng/mL Cannabinoids (THC metabolites) 50 ng/mL Cocaine 300 ng/mL Opiates 300 ng/mL Methadone 300 ng/mL Phencyclidine (PCP) 25 ng/mL Testing has been performed FOR MEDICAL PURPOSES ONLY. LABORATORYOrdered By: Eusebia Marrero on 04-09-2023 FLUAV RNA JENNIFER+probe Ql (Resp) Negative (04/09/23 3:39 AM) Normal Negative AO Auto Urine SS FLUBV RNA JENNIFER+probe Ql (Resp) Negative (04/09/23 3:39 AM) Normal Negative AO Auto Urine SS RSV RNA JENNIFER+probe Ql (Resp) Negative (04/09/23 3:39 AM) Normal Negative AO Auto Urine SS SARS-CoV-2 (COVID-19) RNA JENNIFER+probe Ql (Resp) Negative 4 (04/09/23 3:39 AM) Normal Negative AO Auto Urine SS Comment on above: Interpretive Data: R esults from the Xpert Xpress CoV-2/Flu/RSV plus test should be correlated with the clinical history, epidemiological data, and other data available to the clinical evaluating the patient. Performance of the Xpert Xpress CoV-2/Flu/RSV plus test has only been established in nasopharyngeal swab specimen. Erroneous test results might occur from improper specimen collection, failure to follow the recommended sample collection, handling and storage procedures, technical error, or sample mix-up. False negative results may occur if a virus is present at a level below the analytical limit of detection. Viral nucleic acid may persist in vivo, independent of virus viability. Detection of analyte target(s) does not imply that the corresponding virus(es) are infectious or are the causative agents for clinical symptoms. Recent patient exposure to FluMist or other live attenuated influenza vaccines may cause inaccurate positive results. UDRUGon 04-09-2023 Amphetamine (u) Negative Normal Negative [facility] ([place]) Comment on above: Performed By: #### T OXSC #### [address] [address] Barbiturate (u) Negative Normal Negative [facility] ([place]) Comment on above: Performed By: #### T OXSC #### Mahnaz [address] [address] Benzodiazepine (u) Negative Normal Negative [facility] ([place]) Comment on above: Performed By: #### T OXSC #### [address] [address] Cannabinoid (u) Negative Normal Negative [facility] ([place]) Comment on above: Performed By: #### T OXSC #### [address] [address] Cocaine Ql (U) Negative Normal Negative [facility] ([place]) Comment on above: Performed By: #### T OXSC #### [address] [address] Methadone Ql (U) Negative Normal Negative [facility] ([place]) Comment on above: Performed By: #### T OXSC #### [address] [address] Opiate (u) Negative Normal Negative [facility] ([place]) Comment on above: Performed By: #### T OXSC #### [address] [address] PCP (u) Negative Normal Negative [facility] ([place]) Comment on above: Performed By: #### T OXSC #### [address] [address] Urine Drugs screened: See Below Normal [facility] ([place]) Comment on above: Result Comment: This drug screen is a presumptive screening only. No confirmation will be performed unless requested. Drugs screened include: Threshold Amphetamines/Methamphetamines 1,000 ng/mL Barbiturates 200 ng/mL Benzodiazepine metabolites 200 ng/mL Cannabinoids (THC metabolites) 50 ng/mL Cocaine 300 ng/mL Opiates 300 ng/mL Methadone 300 ng/mL Phencyclidine (PCP) 25 ng/mL Testing has been performed FOR MEDICAL PURPOSES ONLY. Performed By: #### T OXSC #### Mahnaz [address] [address] FOLATE, SERUMon 02-25-2023 Folate [Mass/Vol] 6.2 ng/mL Normal 4.8-24.2 [facility] Comment on above: Result Comment: Test ing performed by [facility] [address] [place] [id number] Performed By: #### F OL1 #### [facility] [address] [place] [address] [facility] HEMOGLOBIN A1Con 02-25-2023 Glucose [Mass/Vol] 103 mg/dL Normal 68-114 [facility] Comment on above: Performed By: #### H A1C #### LINE DIRECTOR: BERNY Curtis [facility] [address] [place] [address] HbA1c (Bld) [Mass fraction] 5.2 % Normal 4.0-5.6 [facility] Comment on above: Result Comment: Hemo globin A1C level between 5.7% and 6.4% indicates prediabetes. Hemoglobin A1C level greater than or equal to 6.5% indicates diabetes. Hemoglobin A1C method utilizes NGSP/DCCT standardized equation. Performed By: #### H A1C #### LINE DIRECTOR: BERNY Curtis [facility] [address] [place] [address] LIPID PROFILEon 02-25-2023 CARDIAC RISK 2 {ratio} Normal 0-5 [facility] Comment on above: Performed By: #### L IP #### LINE DIRECTOR: BERNY Curtis [facility] [address] [place] [address] Cholesterol [Mass/Vol] 125 mg/dL Normal 0-200 [facility] Comment on above: Performed By: #### L IP #### LINE DIRECTOR: BERN[facility] [address] [place] [address] Cholesterol in LDL [Mass/Vol] 39 mg/dL Normal 0-100 [facility] Comment on above: Performed By: #### L IP #### LINE DIRECTOR: [facility] [address] [place] [address] Cholesterol in VLDL [Mass/Vol] 6 mg/dL Normal 0-40 [facility] Comment on above: Performed By: #### L IP #### LINE DIRECTOR: BERNY Curtis [facility] [address] [place] [address] HDL-CHOL 80 mg/dL High 40-60 [facility] Comment on above: Result Comment: NCEP Guidelines: HDL < 40 mg/dl is a major risk factor for CHD. HDL > 60 mg/dl is a negative risk factor for CHD. Performed By: #### L IP #### LINE DIRECTOR: BERNY [facility] [address] [place] [address] Triglyceride [Mass/Vol] 30 mg/dL Normal 0-150 [facility] Comment on above: Performed By: #### L IP #### LINE DIRECTOR: BERNY Curtis [facility] [address] [place] [address] TSH REFLEX FT4 IF IND.on TSH, ULTRASENSITIVE 1.81 u[IU]/mL Normal 0.27-4.20 [facility] Comment on above: Performed By: #### T SHIF #### LINE DIRECTOR: BERNY Curtis [facility] [address] [place] [address] VITAMIN B12 LEVELon 02-26-20 23 Cobalamin (Vitamin B12) [Mass/Vol] 641 pg/mL Normal 211-911 [facility] Comment on above: Result Comment: Test ing performed by [facility] [address] [place] [address] Performed By: #### V TB12 #### [facility] [address] [place] [address] [facility] UFENTSon 02-24-2023 Fentanyl (u) Negative Normal Negative [facility] ([place]) Comment on above: Result Comment: Test ing has been performed FOR MEDICAL PURPOSES ONLY. Performed By: #### A DIFF, CBC, GFR, BMP, ANEU, MDW #### [address] [address] UOXYSon 02-24-2023 Oxycodone (u) Negative Normal Negative [facility] ([place]) Comment on above: Result Comment: Test ing has been performed FOR MEDICAL PURPOSES ONLY. Performed By: #### A DIFF, CBC, GFR, BMP, ANEU, MDW #### [address] [address] .Auto Diffon 02-23-2023 Basophil, Absolute 0.0 10 3/mcL Normal 0.0-0.2 [facility] ([place]) Comment on above: Performed By: #### T OXSC #### [address] [address] Basophils/100 WBC (Bld) 0.3 % Normal 0.0-2.5 A [facility] ([place]) Comment on above: Performed By: #### T OXSC #### [address] [address] Eosinophil, Absolute 0.1 10 3/mcL Normal 0.0-0.4 [facility] ([place]) Comment on above: Performed By: #### T OXSC #### [address] [address] Eosinophils/100 WBC (Bld) 1.0 % Normal 0.0-7.0 [facility] ([place]) Comment on above: Performed By: #### T OXSC #### [address] [address] Lymphocyte, Absolute 0.9 10 3/mcL Normal 0.8-3.9 [facility] ([place]) Comment on above: Performed By: #### T OXSC #### [address] [address] Lymphocytes/100 WBC (Bld) 12.5 % Normal 10.0-50.0 [facility] ([place]) Comment on above: Performed By: #### T OXSC #### [address] [address] Monocyte, Absolute 0.6 10 3/mcL Normal 0.2-1.0 [facility] ([place]) Comment on above: Performed By: #### T OXSC #### [address] [address] Monocytes/100 WBC (Bld) 8.6 % Normal 1.7-13.0 A [facility] ([place]) Comment on above: Performed By: #### T OXSC #### [address] [address] Neutrophils/100 WBC (Bld) 77.6 % Normal 37.0-80.0 [facility] ([place]) Comment on above: Performed By: #### T OXSC #### [address] [address] .GFRon 02-23-2023 GFR Non- 87 ml/min/1.73sqm Normal [facility] ([place]) Comment on above: Result Comment: GFR Population mean for , Non- Americans Ages 20-29 = 116 mL/min/1.73 sq.m. Ages 30-39 = 107 mL/min/1.73 sq.m. Ages 40-49 = 99 mL/min/1.73 sq.m. Ages 50-59 = 93 mL/min/1.73 sq.m. Ages 60-69 = 85 mL/min/1.73 sq.m. Ages 70+ = 75 mL/min/1.73 sq.m. Chronic Kidney Disease: Less than 60 mL/min/1.73 square meters End Stage Renal Disease: Less than 15 mL/min/1.73 square meters Performed By: #### T OXSC #### [address] [address] GFR 106 ml/min/1.73sqm Normal [facility] ([place]) Comment on above: Result Comment: GFR Population mean for , Non- Americans Ages 20-29 = 116 mL/min/1.73 sq.m. Ages 30-39 = 107 mL/min/1.73 sq.m. Ages 40-49 = 99 mL/min/1.73 sq.m. Ages 50-59 = 93 mL/min/1.73 sq.m. Ages 60-69 = 85 mL/min/1.73 sq.m. Ages 70+ = 75 mL/min/1.73 sq.m. Chronic Kidney Disease: Less than 60 mL/min/1.73 square meters End Stage Renal Disease: Less than 15 mL/min/1.73 square meters Performed By: #### T OXSC #### [place] [address] .MDWon 02-23-2023 Monocyte Distribution Width 17.49 Normal 0.00-20.00 [facility] ([place]) Comment on above: Result Comment: For ED adult patients suspected of sepsis, MDW<=20.0 does not rule out sepsis or risk of sepsis Performed By: #### T OXSC #### [place] [address] .NEUABSon 02-23-2023 Neutrophil, Absolute 5.7 10 3/mcL Normal 2.9-6.2 [facility] ([place]) Comment on above: Performed By: #### T OXSC #### [place] [address] ACETAon 02-23-2023 Acetaminophen Lvl <0 Normal 10.0-30.0 [facility] ([place]) Comment on above: Performed By: #### T OXSC #### [place] [address] Martell 02-23-2023 Ethanol Level <3 Normal 0-3 [facility] ([place]) Comment on above: Performed By: #### T OXSC #### [place] [address] CBCon 02-23-2023 Erythrocyte distribution width (RBC) [Ratio] 14.8 % High 11.5-14.5 [facility] ([place]) Comment on above: Performed By: #### T OXSC #### [place] [address] Hematocrit (Bld) [Volume fraction] 41.8 % Low 42.0-52.0 [facility] ([place]) Comment on above: Performed By: #### T OXSC #### Mahnaz [address] [address] Hgb 14.3 G/dL Normal 14.0-18.0 [facility] ([place]) Comment on above: Performed By: #### T OXSC #### Mahnaz [address] [address] MCH (RBC) [Entitic mass] 32.6 pg High 27.0-31.2 [facility] ([place]) Comment on above: Performed By: #### T OXSC #### Mahnaz [address] [address] MCHC 34.1 G/dL Normal 31.8-35.4 [facility] ([place]) Comment on above: Performed By: #### T OXSC #### [place]naz [address] [address] MCV (RBC) [Entitic vol] 95.6 fL High 80.0-94.0 A [facility] ([place]) Comment on above: Performed By: #### T OXSC #### [place] [address] [address] Platelet 204 10 3/mcL Normal 130-400 [facility] ([place]) Comment on above: Performed By: #### T OXSC #### [place] [address] [address] Platelet mean volume (Bld) [Entitic vol] 9.5 fL Normal 7.4-10.4 [facility] ([place]) Comment on above: Performed By: #### T OXSC #### Mahn[place] [address] [address] RBC 4.38 10 6/mcL Normal 4.04-6.13 [facility] ([place]) Comment on above: Performed By: #### T OXSC #### Mahn[place] [address] [address] WBC 7.3 10 3/mcL Normal 4.6-10.8 [facility] ([place]) Comment on above: Performed By: #### T OXSC #### [address] [address] CMPon 02-23-2023 Albumin Level 4.0 G/dL Normal 3.4-4.8 [facility] ([place]) Comment on above: Performed By: #### T OXSC #### [address] [address] Albumin/Globulin [Mass ratio] 1.1 {ratio} Normal 1.1-2.5 [facility] ([place]) Comment on above: Performed By: #### T OXSC #### [address] [address] ALP [Catalytic activity/Vol] 79 U/L Normal 40-135 [facility] ([place]) Comment on above: Performed By: #### T OXSC #### [address] [address] ALT [Catalytic activity/Vol] 31 U/L Normal 16-63 [facility] ([place]) Comment on above: Performed By: #### T OXSC #### [address] [address] AST [Catalytic activity/Vol] 23 U/L Normal 10-40 [facility] ([place]) Comment on above: Performed By: #### T OXSC #### [address] [address] Bili Total 0.7 mg/dL Normal 0.2-1.0 [facility] ([place]) Comment on above: Result Comment: Use of this assay is not recommended for patients undergoing treatment with eltrombopag due to the potential for falsely elevated results. Performed By: #### T OXSC #### [address] [address] BUN/Creatinine Ratio 14 ratio Normal 7-27 [facility] ([place]) Comment on above: Performed By: #### T OXSC #### [address] [address] Calcium [Mass/Vol] 9.5 mg/dL Normal 8.4-10.2 [facility] ([place]) Comment on above: Performed By: #### T OXSC #### [address] [address] Chloride [Moles/Vol] 99 mmol/L Normal 98-107 [facility] ([place]) Comment on above: Performed By: #### T OXSC #### [address] [address] CO2 [Moles/Vol] 32 mmol/L High 23-31 [facility] ([place]) Comment on above: Performed By: #### T OXSC #### [address] [address] Creatinine [Mass/Vol] 0.88 mg/dL Normal 0.70-1.30 [facility] ([place]) Comment on above: Performed By: #### T OXSC #### [address] [address] Electrolyte Balance 9.0 mEq/L Normal 4.0-15.0 [facility] ([place]) Comment on above: Performed By: #### T OXSC #### [address] [address] Globulin 3.6 G/dL Normal [facility] ([place]) Comment on above: Performed By: #### T OXSC #### [address] [address] Glucose [Mass/Vol] 89 mg/dL Normal 80-115 [facility] ([place]) Comment on above: Performed By: #### T OXSC #### [address] [address] Potassium [Moles/Vol] 4.5 mmol/L Normal 3.5-5.1 [facility] ([place]) Comment on above: Performed By: #### T OXSC #### [address] [address] Sodium [Moles/Vol] 140 mmol/L Normal 136-145 [facility] ([place]) Comment on above: Performed By: #### T OXSC #### [address] [address] Total Protein 7.6 G/dL Normal 6.4-8.2 [facility] ([place]) Comment on above: Performed By: #### T OXSC #### [address] [address] Urea nitrogen [Mass/Vol] 12 mg/dL Normal 7-18 [facility] ([place]) Comment on above: Performed By: #### T OXSC #### [address] [address] [id number] 02-23-2023 SARS-CoV-2 (COVID-19) RNA JENNIFER+probe Ql (Unsp spec) Negative Normal Negative [facility] ([place]) Comment on above: Performed By: #### A DIFF, CBC, GFR, BMP, ANEU, MDW #### [address] [address] SARS-CoV-2 (COVID-19) RNA JENNIFER+probe Ql (Unsp spec) Normal [facility] ([place]) Comment on above: Result Comment: Nega tive results do not preclude SARS-CoV-2 infection and should not be used as the sole basis for patient management decisions. Negative results must be combined with clinical observations, patient history, and epidemiological information. There is a risk of false negative values resulting from improperly collected, transported, or handled specimens. There is a risk of false negative values due to the presence of sequence variants in the pathogen targets of the assay, procedural errors, amplification inhibitors in specimens, or inadequate numbers of organisms for amplification. BERNABE SARS-CoV-2 Assay is a Real-Time reverse-transcriptase polymerase chain reaction (RT-PCR) based qualitative in vitro diagnostic test intended for the qualitative detection of nucleic acid from the SARS-CoV-2 in nasopharyngeal swab specimens collected from individuals suspected of COVID-19 by their healthcare provider. Testing is limited to laboratories certified under the Clinical Laboratory Improvement Amendments of 1988 (CLIA), 42 U.S.C. ?263a, to perform moderate and high complexity tests. COVID-19 Int Performed By: #### A DIFF, CBC, GFR, BMP, ANEU, MDW #### [address] [address] FLURSVon 02-23-2023 Flu A PCR (AO) Negative Normal Negative [facility] ([place]) Comment on above: Result Comment: Posi tive Results: Positive Flu A/B or RSV for by PCR. Positive test results do not rule out bacterial infection or co-infection with other pathogens. Test results should be interpreted in conjunction with other laboratory and clinical data. Negative Results: Negative for by PCR. Negative test results do not preclude influenza virus or RSV infection and should not be used as the sole basis for diagnosis, treatment, or other management decisions. There is a risk of false negative RSV results when at low concentration and in the presence of co-infection with high concentration of influenza A. Invalid Results: An Invalid result (INV) was obtained. The test was repeated with similar results. REPEAT COLLECTION AND TESTING IS RECOMMENDED. The Bernabe Flu A/B & RSV Assay is a real-time polymerase chain reaction (PCR) based qualitative in vitro diagnostic test for the direct detection and differentiation of influenza A virus, influenza B virus, and respiratory syncytial virus (RSV) nucleic acid in nasopharyngeal swab (MANAGER [employer]ENT[employer]) specimens from patients with signs and symptoms of respiratory infection in conjunction with clinical and laboratory findings. The test is intended for use as an aid in the differential diagnosis of influenza A virus, influenza B virus, and RSV in humans and is not intended to detect influenza C. Performed By: #### A DIFF, CBC, GFR, BMP, ANEU, MDW #### [address] [address] Flu B PCR (AO) Negative Normal Negative [facility] ([place]) Comment on above: Result Comment: Posi tive Results: Positive Flu A/B or RSV for by PCR. Positive test results do not rule out bacterial infection or co-infection with other pathogens. Test results should be interpreted in conjunction with other laboratory and clinical data. Negative Results: Negative for by PCR. Negative test results do not preclude influenza virus or RSV infection and should not be used as the sole basis for diagnosis, treatment, or other management decisions. There is a risk of false negative RSV results when at low concentration and in the presence of co-infection with high concentration of influenza A. Invalid Results: An Invalid result (INV) was obtained. The test was repeated with similar results. REPEAT COLLECTION AND TESTING IS RECOMMENDED. The Bernabe Flu A/B & RSV Assay is a real-time polymerase chain reaction (PCR) based qualitative in vitro diagnostic test for the direct detection and differentiation of influenza A virus, influenza B virus, and respiratory syncytial virus (RSV) nucleic acid in nasopharyngeal swab (MANAGER [employer]ENTAL) specimens from patients with signs and symptoms of respiratory infection in conjunction with clinical and laboratory findings. The test is intended for use as an aid in the differential diagnosis of influenza A virus, influenza B virus, and RSV in humans and is not intended to detect influenza C. Performed By: #### A DIFF, CBC, GFR, BMP, SARI HENDRIX #### [address] [address] RSV PCR (AO) Negative Normal Negative [facility] ([place]) Comment on above: Result Comment: Posi tive Results: Positive Flu A/B or RSV for by PCR. Positive test results do not rule out bacterial infection or co-infection with other pathogens. Test results should be interpreted in conjunction with other laboratory and clinical data. Negative Results: Negative for by PCR. Negative test results do not preclude influenza virus or RSV infection and should not be used as the sole basis for diagnosis, treatment, or other management decisions. There is a risk of false negative RSV results when at low concentration and in the presence of co-infection with high concentration of influenza A. Invalid Results: An Invalid result (INV) was obtained. The test was repeated with similar results. REPEAT COLLECTION AND TESTING IS RECOMMENDED. The Bernabe Flu A/B & RSV Assay is a real-time polymerase chain reaction (PCR) based qualitative in vitro diagnostic test for the direct detection and differentiation of influenza A virus, influenza B virus, and respiratory syncytial virus (RSV) nucleic acid in nasopharyngeal swab (MANAGER [employer]ENTAL) specimens from patients with signs and symptoms of respiratory infection in conjunction with clinical and laboratory findings. The test is intended for use as an aid in the differential diagnosis of influenza A virus, influenza B virus, and RSV in humans and is not intended to detect influenza C. Performed By: #### A DIFF, CBC, GFR, BMP, SARI HENDRIX #### Mahn[address] [place] [id number] [place], [place] [address] SALon 02-23-2023 Salicylate Level 0.4 mg/dL Low 2.8-20.0 [facility] ([place]) Comment on above: Performed By: #### T OXSC #### [place] [address] UDRUGon 02-23-2023 Amphetamine (u) Negative Normal Negative [facility] ([place]) Comment on above: Performed By: #### A DIFF, CBC, GFR, BMP, ANEU, SARI #### [place] [address] Barbiturate (u) Negative Normal Negative [facility] ([place]) Comment on above: Performed By: #### A DIFF, CBC, GFR, BMP, ANEU, SARI #### [address] [address] Benzodiazepine (u) Negative Normal Negative [facility] ([place]) Comment on above: Performed By: #### A DIFF, CBC, GFR, BMP, ANEUSARI #### [place] [address] Cannabinoid (u) Negative Normal Negative [facility] ([place]) Comment on above: Performed By: #### A DIFF, CBC, GFR, BMP, SARI HENDRIX #### [address] [address] Cocaine Ql (U) Negative Normal Negative [facility] ([place]) Comment on above: Performed By: #### A DIFF, CBC, GFR, BMP, SARI HENDRIX #### [address] [address] Methadone Ql (U) Negative Normal Negative [facility] ([place]) Comment on above: Performed By: #### A DIFF, CBC, GFR, BMP, ANEU, SARI #### [address] [address] Opiate (u) Negative Normal Negative [facility] ([place]) Comment on above: Performed By: #### A DIFF, CBC, GFR, BMP, ANEUSARI #### [place] [address] PCP (u) Negative Normal Negative [facility] ([place]) Comment on above: Performed By: #### A DIFF, CBC, GFR, BMP, ANEUSARI #### [address] [address] Urine Drugs screened: See Below Normal [facility] ([place]) Comment on above: Result Comment: This drug screen is a presumptive screening only. No confirmation will be performed unless requested. Drugs screened include: Threshold Amphetamines/Methamphetamines 1,000 ng/mL Barbiturates 200 ng/mL Benzodiazepine metabolites 200 ng/mL Cannabinoids (THC metabolites) 50 ng/mL Cocaine 300 ng/mL Opiates 300 ng/mL Methadone 300 ng/mL Phencyclidine (PCP) 25 ng/mL Testing has been performed FOR MEDICAL PURPOSES ONLY. Performed By: #### A DIFF, CBC, GFR, BMP, SARI HENDRIX #### [place] [id number] URINon 02-23-2023 Color (U) Yellow Normal [facility] ([place]) Comment on above: Performed By: #### A DIFF, CBC, GFR, NANCI, SARI HENDRIX #### [address] [address] Glucose (U) [Mass/Vol] Negative Normal Negative [facility] ([place]) Comment on above: Performed By: #### A DIFF, CBC, GFR, NANCI, SARI HENDRIX #### [address] [address] Ketones Ql (U) Negative Normal Negative [facility] ([place]) Comment on above: Performed By: #### A DIFF, CBC, GFR, NANCI, SARI HENDRIX #### [address] [address] UA Appear Clear Normal Clear [facility] ([place]) Comment on above: Performed By: #### A DIFF, CBC, GFR, NANCI, SARI HENDRIX #### [address] [address] UA Blood Negative Normal Negative [facility] ([place]) Comment on above: Performed By: #### A DIFF, CBC, GFR, BMP, SARI HENDRIX #### [address] [address] UA Leuk Est Negative Normal Negative [facility] ([place]) Comment on above: Performed By: #### A DIFF, CBC, GFR, BMP, ANEU, MDW #### [address] [address] UA Nitrite Negative Normal Negative [facility] ([place]) Comment on above: Performed By: #### A DIFF, CBC, GFR, BMP, ANEU, W #### [address] [address] UA pH 7.0 Normal 5.0 - 8.0 [facility] ([place]) Comment on above: Performed By: #### A DIFF, CBC, GFR, BMP, ANEU, W #### [address] [address] UA Protein Negative Normal Negative [facility] ([place]) Comment on above: Performed By: #### A DIFF, CBC, GFR, BMP, ANEU, W #### [address] [address] UA Spec Grav 1.020 Normal 1.015-1.025 [facility] ([place]) Comment on above: Performed By: #### A DIFF, CBC, GFR, BMP, SIMEON, W #### [address] [address] UA Specimen Type Clean Catch Normal [facility] ([place]) Comment on above: Performed By: #### A DIFF, CBC, GFR, BMP, SIMEON, W #### [address] [address] UA Urobilinogen 1.0 E.U./dL Normal 0.2-1.0 [facility] ([place]) Comment on above: Performed By: #### A DIFF, CBC, GFR, BMP, ANEU, W #### [address] [address] Urobilinogen (U) [Mass/Vol] Negative Normal Negative [facility] ([place]) Comment on above: Performed By: #### A DIFF, CBC, GFR, BMP, ANEU, W #### [place] [id number] .Auto Diff02-22-2023 Basophil, Absolute 0.0 10 3/mcL Normal 0.0-0.2 [facility] ([place]) Comment on above: Performed By: #### A DIFF, CBC, GFR, BMP, ANEUSARI #### [address] [address] Basophils/100 WBC (Bld) 0.6 % Normal 0.0-2.5 A [facility] ([place]) Comment on above: Performed By: #### A DIFF, CBC, GFR, BMP, ANEUSARI #### [address] [address] Eosinophil, Absolute 0.1 10 3/mcL Normal 0.0-0.4 [facility] ([place]) Comment on above: Performed By: #### A DIFF, CBC, GFR, BMP, SARI HENDRIX #### [address] [address] Eosinophils/100 WBC (Bld) 0.9 % Normal 0.0-7.0 [facility] ([place]) Comment on above: Performed By: #### A DIFF, CBC, GFR, BMP, SARI HENDRIX #### [address] [address] Lymphocyte, Absolute 0.9 10 3/mcL Normal 0.8-3.9 [facility] ([place]) Comment on above: Performed By: #### A DIFF, CBC, GFR, BMP, SARI HENDRIX #### [address] [address] Lymphocytes/100 WBC (Bld) 14.3 % Normal 10.0-50.0 [facility] ([place]) Comment on above: Performed By: #### A DIFF, CBC, GFR, BMP, SARI HENDRIX #### [address] [address] Monocyte, Absolute 0.6 10 3/mcL Normal 0.2-1.0 [facility] ([place]) Comment on above: Performed By: #### A DIFF, CBC, GFR, BMP, SARI HENDRIX #### [address] [address] Monocytes/100 WBC (Bld) 9.0 % Normal 1.7-13.0 A [facility] ([place]) Comment on above: Performed By: #### A DIFF, CBC, GFR, BMPSIMEON MDW #### [place] [address] [place], [place] [address] Neutrophils/100 WBC (Bld) 75.2 % Normal 37.0-80.0 [facility] ([place]) Comment on above: Performed By: #### A DIFF, CBC, GFR, BMP, SARI HENDRIX #### [address] [address] .GFRon 02-22-2023 GFR 106 ml/min/1.73sqm Normal [facility] ([place]) Comment on above: Result Comment: GFR Population mean for , Non- Americans Ages 20-29 = 116 mL/min/1.73 sq.m. Ages 30-39 = 107 mL/min/1.73 sq.m. Ages 40-49 = 99 mL/min/1.73 sq.m. Ages 50-59 = 93 mL/min/1.73 sq.m. Ages 60-69 = 85 mL/min/1.73 sq.m. Ages 70+ = 75 mL/min/1.73 sq.m. Chronic Kidney Disease: Less than 60 mL/min/1.73 square meters End Stage Renal Disease: Less than 15 mL/min/1.73 square meters Performed By: #### A DIFF, CBC, GFR, BMP, SARI HENDRIX #### [address] [address] GFR Non- 87 ml/min/1.73sqm Normal [facility] ([place]) Comment on above: Result Comment: GFR Population mean for , Non- Americans Ages 20-29 = 116 mL/min/1.73 sq.m. Ages 30-39 = 107 mL/min/1.73 sq.m. Ages 40-49 = 99 mL/min/1.73 sq.m. Ages 50-59 = 93 mL/min/1.73 sq.m. Ages 60-69 = 85 mL/min/1.73 sq.m. Ages 70+ = 75 mL/min/1.73 sq.m. Chronic Kidney Disease: Less than 60 mL/min/1.73 square meters End Stage Renal Disease: Less than 15 mL/min/1.73 square meters Performed By: #### A DIFF, CBC, GFR, BMP, ANEU, SARI #### [address] [address] .MDWon 02-22-2023 Monocyte Distribution Width 15.93 Normal 0.00-20.00 [facility] ([place]) Comment on above: Result Comment: For ED adult patients suspected of sepsis, MDW<=20.0 does not rule out sepsis or risk of sepsis Performed By: #### A DIFF, CBC, GFR, BMP, ANEUSARI #### [address] [address] .NEUABSon 02-22-2023 Neutrophil, Absolute 5.0 10 3/mcL Normal 2.9-6.2 [facility] ([place]) Comment on above: Performed By: #### A DIFF, CBC, GFR, BMP, ANEUSARI #### [address] [address] BMPon 02-22-2023 BUN/Creatinine Ratio 17 ratio Normal 7-27 [facility] ([place]) Comment on above: Performed By: #### A DIFF, CBC, GFR, BMP, ANEU, SARI #### [address] [address] Calcium [Mass/Vol] 9.1 mg/dL Normal 8.4-10.2 [facility] ([place]) Comment on above: Performed By: #### A DIFF, CBC, GFR, BMP, ANEUMDW #### [address] [address] Chloride [Moles/Vol] 100 mmol/L Normal 98-107 [facility] ([place]) Comment on above: Performed By: #### A DIFF, CBC, GFR, BMP, ANEU, MDW #### [address] [address] CO2 [Moles/Vol] 31 mmol/L Normal 23-31 [facility] ([place]) Comment on above: Performed By: #### A DIFF, CBC, GFR, BMP, SARI HENDRIX #### [address] [address] Creatinine [Mass/Vol] 0.88 mg/dL Normal 0.70-1.30 [facility] ([place]) Comment on above: Performed By: #### A DIFF, CBC, GFR, BMP, SARI HENDRIX #### [address] [address] Electrolyte Balance 8.0 mEq/L Normal 4.0-15.0 [facility] ([place]) Comment on above: Performed By: #### A DIFF, CBC, GFR, BMP, SARI HENDRIX #### [address] [address] Glucose [Mass/Vol] 95 mg/dL Normal 80-115 [facility] ([place]) Comment on above: Performed By: #### A DIFF, CBC, GFR, BMP, SARI HENDRIX #### [address] [address] Potassium [Moles/Vol] 4.2 mmol/L Normal 3.5-5.1 [facility] ([place]) Comment on above: Performed By: #### A DIFF, CBC, GFR, BMP, SARI HENDRIX #### [address] [address] Sodium [Moles/Vol] 139 mmol/L Normal 136-145 [facility] ([place]) Comment on above: Performed By: #### A DIFF, CBC, GFR, BMP, SARI HENDRIX #### [address] [address] Urea nitrogen [Mass/Vol] 15 mg/dL Normal 7-18 [facility] ([place]) Comment on above: Performed By: #### A DIFF, CBC, GFR, BMP, SARI HENDRIX #### [address] [address] CBCon 02-22-2023 Erythrocyte distribution width (RBC) [Ratio] 14.8 % High 11.5-14.5 [facility] ([place]) Comment on above: Performed By: #### A DIFF, CBC, GFR, BMP, SARI HENDRIX #### [address] [address] Hematocrit (Bld) [Volume fraction] 41.0 % Low 42.0-52.0 [facility] ([place]) Comment on above: Performed By: #### A DIFF, CBC, GFR, BMP, ANEUSARI #### [address] [address] Hgb 14.1 G/dL Normal 14.0-18.0 [facility] ([place]) Comment on above: Performed By: #### A DIFF, CBC, GFR, BMP, SARI HENDRIX #### [address] [address] MCH (RBC) [Entitic mass] 32.4 pg High 27.0-31.2 [facility] ([place]) Comment on above: Performed By: #### A DIFF, CBC, GFR, BMP, SARI HENDRIX #### [address] [address] MCHC 34.3 G/dL Normal 31.8-35.4 [facility] ([place]) Comment on above: Performed By: #### A DIFF, CBC, GFR, BMP, SARI HENDRIX #### [address] [address] MCV (RBC) [Entitic vol] 94.4 fL High 80.0-94.0 [facility] ([place]) Comment on above: Performed By: #### A DIFF, CBC, GFR, BMP, SARI HENDRIX #### [address] [address] Platelet 203 10 3/mcL Normal 130-400 [facility] ([place]) Comment on above: Performed By: #### A DIFF, CBC, GFR, BMP, MD SIMEONW #### [address] [address] Platelet mean volume (Bld) [Entitic vol] 8.9 fL Normal 7.4-10.4 [facility] ([place]) Comment on above: Performed By: #### A DIFF, CBC, GFR, BMP, SARI HENDRIX #### [place] [address] [place], [place] [address] RBC 4.34 10 6/mcL Normal 4.04-6.13 [facility] ([place]) Comment on above: Performed By: #### A DIFF, CBC, GFR, BMP, SARI HENDRIX #### [place] [address] [address] WBC 6.6 10 3/mcL Normal 4.6-10.8 [facility] ([place]) Comment on above: Performed By: #### A DIFF, CBC, GFR, BMPSIMEON MDW #### [address] [address] LABORATORYOrdered By: SYSTEM SYSTEM on 02-22-2023 Basophil, Absolute 0.0 103/mcL Normal 0.0 - 0.2 10^3/mcL AO Workflow SS Basophils/100 WBC (Bld) 0.6 % Normal 0.0 - 2.5 % AO Workflow SS Calcium [Mass/Vol] 9.1 mg/dL Normal 8.4 - 10. 2 mg/dL AO ADM SS Chloride [Moles/Vol] 100 mmol/L Normal 98 - 10 7 mmol/L AO ADM SS CO2 [Moles/Vol] 31 mmol/L Normal 23 - 31 mmol/L AO ADM SS Creatinine [Mass/Vol] 0.88 mg/dL Normal 0.70 - 1.30 mg/dL AO ADM SS Electrolyte Balance 8.0 mEq/L Normal 4.0 - 15 .0 mEq/L AO ADM SS Eosinophil, Absolute 0.1 103/mcL Normal 0.0 - 0 .4 10^3/mcL AO Workflow SS Eosinophils/100 WBC (Bld) 0.9 % Normal 0.0 - 7.0 % AO Workflow SS Erythrocyte distribution width (RBC) [Ratio] 14.8 % High 11.5 - 14.5 % AO Workflow SS GFR/1.73 sq M.predicted among blacks MDRD (S/P/Bld) [Vol rate/Area] 106 ml/min/1.73sqm Invalid Interpretation Code AO Chemistry S Comment on above: Interpretive Data: GFR Population mean for , Non- Americans Ages 20-29 = 116 mL/min/1.73 sq.m. Ages 30-39 = 107 mL/min/1.73 sq.m. Ages 40-49 = 99 mL/min/1.73 sq.m. Ages 50-59 = 93 mL/min/1.73 sq.m. Ages 60-69 = 85 mL/min/1.73 sq.m. Ages 70+ = 75 mL/min/1.73 sq.m. Chronic Kidney Disease: Less than 60 mL/min/1.73 square meters End Stage Renal Disease: Less than 15 mL/min/1.73 square meters GFR/1.73 sq M.predicted among non-blacks MDRD (S/P/Bld) [Vol rate/Area] 87 ml/min/1.73sqm Invalid Interpretation Code AO Chemistry S Comment on above: Interpretive Data: GFR Population mean for , Non- Americans Ages 20-29 = 116 mL/min/1.73 sq.m. Ages 30-39 = 107 mL/min/1.73 sq.m. Ages 40-49 = 99 mL/min/1.73 sq.m. Ages 50-59 = 93 mL/min/1.73 sq.m. Ages 60-69 = 85 mL/min/1.73 sq.m. Ages 70+ = 75 mL/min/1.73 sq.m. Chronic Kidney Disease: Less than 60 mL/min/1.73 square meters End Stage Renal Disease: Less than 15 mL/min/1.73 square meters Glucose [Mass/Vol] 95 mg/dL Normal 80 - 115 mg/dL AO ADM SS Hematocrit (Bld) [Volume fraction] 41.0 % Low 42.0 - 52.0 % AO Workflow SS Hemoglobin (Bld) [Mass/Vol] 14.1 G/dL Normal 14.0 - 18.0 G/dL AO Workflow SS Lymphocyte, Absolute 0.9 103/mcL Normal 0.8 - 3 .9 10^3/mcL AO Workflow SS Lymphocytes/100 WBC (Bld) 14.3 % Normal 10.0 - 50.0 % AO Workflow SS MCH (RBC) [Entitic mass] 32.4 pg High 27.0 - 31.2 pg AO Workflow SS MCHC 34.3 G/dL Normal 31.8 - 35.4 G/dL AO Workflow SS MCV (RBC) [Entitic vol] 94.4 fL High 80.0 - 94.0 fL AO Workflow SS Monocyte distribution width Auto (Bld) [Entitic vol] 15.93 1 Normal 0.00 - 20.00 AO Workflow SS Comment on above: Result Comment: For ED adult patients suspected of sepsis, MDW<=20.0 does not rule out sepsis or risk of sepsis Monocyte, Absolute 0.6 103/mcL Normal 0.2 - 1.0 10^3/mcL AO Workflow SS Monocytes/100 WBC (Bld) 9.0 % Normal 1.7 - 13.0 % AO Workflow SS Neutrophil, Absolute 5.0 103/mcL Normal 2.9 - 6 .2 10^3/mcL AO Workflow SS Neutrophils/100 WBC (Bld) 75.2 % Normal 37.0 - 80.0 % AO Workflow SS Platelet mean volume (Bld) [Entitic vol] 8.9 fL Normal 7.4 - 10.4 fL AO Workflow SS Platelets (Bld) [#/Vol] 203 103/mcL Normal 130 - 400 10^3/mcL AO Workflow SS Potassium [Moles/Vol] 4.2 mmol/L Normal 3.5 - 5.1 mmol/L AO ADM SS RBC (Bld) [#/Vol] 4.34 106/mcL Normal 4.04 - 6.1 3 10^6/mcL AO Workflow SS Sodium [Moles/Vol] 139 mmol/L Normal 136 - 145 mmol/L AO ADM SS Urea nitrogen [Mass/Vol] 15 mg/dL Normal 7 - 18 mg/dL AO ADM SS Urea nitrogen/Creatinine [Mass ratio] 17 ratio Normal 7 - 27 ratio AO ADM SS WBC (Bld) [#/Vol] 6.6 103/mcL Normal 4.6 - 10.8 10^3/mcL AO Workflow SS .Auto Diffon 02-10-2023 Basophil, Absolute 0.0 10 3/mcL Normal 0.0-0.2 [facility] ([place]) Comment on above: Performed By: #### A MYRON, MDW, ALC, CBC, BMP, ADIFF, GFR #### [place] [address] [address] Basophils/100 WBC (Bld) 0.7 % Normal 0.0-2.5 A [facility] ([place]) Comment on above: Performed By: #### A MD MYRONW, ALC, CBC, BMP, ADIFF, GFR #### [address] [address] Eosinophil, Absolute 0.0 10 3/mcL Normal 0.0-0.4 [facility] ([place]) Comment on above: Performed By: #### A MD MYRONW, ALC, CBC, BMP, ADIFF, GFR #### [address] [address] Eosinophils/100 WBC (Bld) 0.7 % Normal 0.0-7.0 [facility] ([place]) Comment on above: Performed By: #### A MD MYRONW, ALC, CBC, BMP, ADIFF, GFR #### [address] [address] Lymphocyte, Absolute 0.8 10 3/mcL Normal 0.8-3.9 [facility] ([place]) Comment on above: Performed By: #### A MD MYRONW, ALC, CBC, BMP, ADIFF, GFR #### [address] [address] Lymphocytes/100 WBC (Bld) 14.4 % Normal 10.0-50.0 [facility] ([place]) Comment on above: Performed By: #### A MD MYRONW, ALC, CBC, BMP, ADIFF, GFR #### [address] [address] Monocyte, Absolute 0.5 10 3/mcL Normal 0.2-1.0 [facility] ([place]) Comment on above: Performed By: #### A MD MYRONW, ALC, CBC, BMP, ADIFF, GFR #### [address] [address] Monocytes/100 WBC (Bld) 8.8 % Normal 1.7-13.0 A [facility] ([place]) Comment on above: Performed By: #### A MD MYRONW, ALC, CBC, BMP, ADIFF, GFR #### [address] [address] Neutrophils/100 WBC (Bld) 75.4 % Normal 37.0-80.0 [facility] ([place]) Comment on above: Performed By: #### A SARI SANCHES, ALC, CBC, BMP, ADIFF, GFR #### [address] [address] .GFRon 02-10-2023 GFR 89 ml/min/1.73sqm Normal [facility] ([place]) Comment on above: Result Comment: GFR Population mean for , Non- Americans Ages 20-29 = 116 mL/min/1.73 sq.m. Ages 30-39 = 107 mL/min/1.73 sq.m. Ages 40-49 = 99 mL/min/1.73 sq.m. Ages 50-59 = 93 mL/min/1.73 sq.m. Ages 60-69 = 85 mL/min/1.73 sq.m. Ages 70+ = 75 mL/min/1.73 sq.m. Chronic Kidney Disease: Less than 60 mL/min/1.73 square meters End Stage Renal Disease: Less than 15 mL/min/1.73 square meters Performed By: #### A DIFF, CBC, GFR, BMP, SARI HENDRIX #### [address] [address] GFR Non- 74 ml/min/1.73sqm Normal [facility] ([place]) Comment on above: Result Comment: GFR Population mean for , Non- Americans Ages 20-29 = 116 mL/min/1.73 sq.m. Ages 30-39 = 107 mL/min/1.73 sq.m. Ages 40-49 = 99 mL/min/1.73 sq.m. Ages 50-59 = 93 mL/min/1.73 sq.m. Ages 60-69 = 85 mL/min/1.73 sq.m. Ages 70+ = 75 mL/min/1.73 sq.m. Chronic Kidney Disease: Less than 60 mL/min/1.73 square meters End Stage Renal Disease: Less than 15 mL/min/1.73 square meters Performed By: #### A DIFF, CBC, GFR, BMP, SARI HENDRIX #### [address] [address] .MDWon 02-10-2023 Monocyte Distribution Width 15.29 Normal 0.00-20.00 [facility] ([place]) Comment on above: Result Comment: For ED adult patients suspected of sepsis, MDW<=20.0 does not rule out sepsis or risk of sepsis Performed By: #### A DIFF, CBC, GFR, BMP, ANEUMDW #### [address] [address] .NEUABSon 02-10-2023 Neutrophil, Absolute 4.2 10 3/mcL Normal 2.9-6.2 [facility] ([place]) Comment on above: Performed By: #### A MYRONMDW, ALC, CBC, BMP, ADIFF, GFR #### [place] [id number] [place] 02-10-2023 Ethanol Level <3 Normal 0-3 [facility] ([place]) Comment on above: Performed By: #### A DIFF, CBC, GFR, BMP, SARI HENDRIX #### [address] [address] BMPon 02-10-2023 BUN/Creatinine Ratio 9 ratio Normal 7-27 [facility] ([place]) Comment on above: Performed By: #### A DIFF, CBC, GFR, BMP, SARI HENDRIX #### [address] [address] Calcium [Mass/Vol] 9.5 mg/dL Normal 8.4-10.2 [facility] ([place]) Comment on above: Performed By: #### A DIFF, CBC, GFR, BMP, SARI HENDRIX #### [address] [address] Chloride [Moles/Vol] 101 mmol/L Normal 98-107 [facility] ([place]) Comment on above: Performed By: #### A DIFF, CBC, GFR, BMP, SARI HENDRIX #### [address] [address] CO2 [Moles/Vol] 30 mmol/L Normal 23-31 [facility] ([place]) Comment on above: Performed By: #### A DIFF, CBC, GFR, BMP, SARI HENDRIX #### [address] [address] Creatinine [Mass/Vol] 1.02 mg/dL Normal 0.70-1.30 [facility] ([place]) Comment on above: Performed By: #### A DIFF, CBC, GFR, BMP, SARI HENDRIX #### [address] [address] Electrolyte Balance 11.0 mEq/L Normal 4.0-15.0 [facility] ([place]) Comment on above: Performed By: #### A DIFF, CBC, GFR, BMP, SARI HENDRIX #### [address] [address] Glucose [Mass/Vol] 103 mg/dL Normal 80-115 [facility] ([place]) Comment on above: Performed By: #### A DIFF, CBC, GFR, BMP, SARI HENDRIX #### [address] [address] Potassium [Moles/Vol] 4.2 mmol/L Normal 3.5-5.1 [facility] ([place]) Comment on above: Performed By: #### A DIFF, CBC, GFR, BMP, SARI HENDRIX #### [address] [address] Sodium [Moles/Vol] 142 mmol/L Normal 136-145 [facility] ([place]) Comment on above: Performed By: #### A DIFF, CBC, GFR, BMP, SARI HENDRIX #### [address] [address] Urea nitrogen [Mass/Vol] 9 mg/dL Normal 7-18 [facility] ([place]) Comment on above: Performed By: #### A DIFF, CBC, GFR, BMP, SARI HENDRIX #### [address] [place] [address] CBCon 02-10-2023 Erythrocyte distribution width (RBC) [Ratio] 14.5 % Normal 11.5-14.5 [facility] ([place]) Comment on above: Performed By: #### A SARI SANCHES, ALC, CBC, BMP, ADIFF, GFR #### [address] [address] Hematocrit (Bld) [Volume fraction] 40.9 % Low 42.0-52.0 [facility] ([place]) Comment on above: Performed By: #### A SARI SANCHES, ALC, CBC, BMP, ADIFF, GFR #### [place] [address] Hgb 13.9 G/dL Low 14.0-18.0 [facility] ([place]) Comment on above: Performed By: #### A SARI SANCHES, ALC, CBC, BMP, ADIFF, GFR #### [address] [address] MCH (RBC) [Entitic mass] 32.5 pg High 27.0-31.2 [facility] ([place]) Comment on above: Performed By: #### A SARI SANCHES, STEFANI, CBC, BMP, ADIFF, GFR #### [address] [address] MCHC 34.1 G/dL Normal 31.8-35.4 [facility] ([place]) Comment on above: Performed By: #### A SARI SANCHES, ALC, CBC, BMP, ADIFF, GFR #### [address] [address] MCV (RBC) [Entitic vol] 95.3 fL High 80.0-94.0 A [facility] ([place]) Comment on above: Performed By: #### A SARI SANCHES, ALC, CBC, BMP, ADIFF, GFR #### [address] [address] Platelet 212 10 3/mcL Normal 130-400 [facility] ([place]) Comment on above: Performed By: #### A SARI SANCHES, ALC, CBC, BMP, ADIFF, GFR #### [address] [address] Platelet mean volume (Bld) [Entitic vol] 9.4 fL Normal 7.4-10.4 [facility] ([place]) Comment on above: Performed By: #### A SARI SANCHES, ALC, CBC, BMP, ADIFF, GFR #### [address] [address] RBC 4.29 10 6/mcL Normal 4.04-6.13 [facility] ([place]) Comment on above: Performed By: #### A SARI SANCHES, ALC, CBC, BMP, ADIFF, GFR #### [address] [address] WBC 5.5 10 3/mcL Normal 4.6-10.8 [facility] ([place]) Comment on above: Performed By: #### A SARI SANCHES, ALC, CBC, BMP, ADIFF, GFR #### [address] [address] [id number] 02-10-2023 SARS-CoV-2 (COVID-19) RNA JENNIFER+probe Ql (Unsp spec) Negative Normal Negative [facility] ([place]) Comment on above: Performed By: #### A SARI SANCHES, ALC, CBC, BMP, ADIFF, GFR #### [address] [address] SARS-CoV-2 (COVID-19) RNA JENNIFER+probe Ql (Unsp spec) Normal [facility] ([place]) Comment on above: Result Comment: Nega tive results do not preclude SARS-CoV-2 infection and should not be used as the sole basis for patient management decisions. Negative results must be combined with clinical observations, patient history, and epidemiological information. There is a risk of false negative values resulting from improperly collected, transported, or handled specimens. There is a risk of false negative values due to the presence of sequence variants in the pathogen targets of the assay, procedural errors, amplification inhibitors in specimens, or inadequate numbers of organisms for amplification. BERNABE SARS-CoV-2 Assay is a Real-Time reverse-transcriptase polymerase chain reaction (RT-PCR) based qualitative in vitro diagnostic test intended for the qualitative detection of nucleic acid from the SARS-CoV-2 in nasopharyngeal swab specimens collected from individuals suspected of COVID-19 by their healthcare provider. Testing is limited to laboratories certified under the Clinical Laboratory Improvement Amendments of 1988 (CLIA), 42 U.S.C. ?263a, to perform moderate and high complexity tests. COVID-19 Int Performed By: #### A MYRON, MDW, ALC, CBC, BMP, ADIFF, GFR #### [place] [place], [place] [address] LABORATORYOrdered By: Radha Romero on 02-10-2023 Amphetamines Screen Ql (U) Negative *NA* (02/10/23 1:14 PM) Invalid Interpretation Code Negative AO ADM SS Barbiturates Screen Ql (U) Negative *NA* (02/10/23 1:14 PM) Invalid Interpretation Code Negative AO ADM SS Benzodiazepines Ql (U) Negative *NA* (02/10/23 1:14 PM) Invalid Interpretation Code Negative AO ADM SS Benzoylecgonine Screen Ql (U) Negative *NA* (02/10/23 1:14 PM) Invalid Interpretation Code Negative AO ADM SS Cannabinoids Screen Ql (U) Negative *NA* (02/10/23 1:14 PM) Invalid Interpretation Code Negative AO ADM SS Ethanol [Mass/Vol] mg/dL Normal 0 - 3 mg/dL AO Ch emistry S Methadone Screen Ql (U) Negative *NA* (02/10/23 1:14 PM) Invalid Interpretation Code Negative AO ADM SS Opiates Screen Ql (U) Negative *NA* (02/10/23 1:14 PM) Invalid Interpretation Code Negative AO ADM SS Phencyclidine Ql (U) Negative *NA* (02/10/23 1:14 PM) Invalid Interpretation Code Negative AO ADM SS SARS-CoV-2 (COVID-19) RNA JENNIFER+probe Ql (Resp) Negative results do not preclude SARS-CoV-2 infection and should not be used as the sole basis for patient management decisions. Negative results must be combined with clinical observations, patient history, and epidemiological information.There is a risk of false negative values resulting from improperly collected, transported, or handled specimens.There is a risk of false negative values due to the presence of sequence variants in the pathogen targets of the assay, procedural errors, amplification inhibitors in specimens, or inadequate numbers of organisms for amplification.BERNABE SARS-CoV-2 Assay is a Real-Time reverse-transcriptase polymerase chain reaction (RT-PCR) based qualitative in vitro diagnostic test intended for the qualitative detection of nucleic acid from the SARS-CoV-2 in nasopharyngeal swab specimens collected from individuals suspected of COVID-19 by their healthcare provider. Testing is limited to laboratories certified under the Clinical Laboratory Improvement Amendments of 1988 (CLIA), 42 U.S.C. 263a, to perform moderate and high complexity tests. Invalid Interpretation Code AO Auto Urine SS Urine Drugs screened: See Below 2 (02/10/23 1:14 PM) Normal AO Chemistry S Comment on above: Interpretive Data: T his drug screen is a presumptive screening only. No confirmation will be performed unless requested. Drugs screened include: Threshold Amphetamines/Methamphetamines 1,000 ng/mL Barbiturates 200 ng/mL Benzodiazepine metabolites 200 ng/mL Cannabinoids (THC metabolites) 50 ng/mL Cocaine 300 ng/mL Opiates 300 ng/mL Methadone 300 ng/mL Phencyclidine (PCP) 25 ng/mL Testing has been performed FOR MEDICAL PURPOSES ONLY. LABORATORYOrdered By: Sherie Deleon on 02-10-2023 Appearance (U) Clear (02/10/23 1:14 PM) Normal Clear AO Auto Urine SS Bilirubin Ql (U) Negative (02/10/23 1:14 PM) Normal Negative AO Auto Urine SS Color (U) Yellow (02/10/23 1:14 PM) Normal AO Auto Urine SS Glucose Test strip (U) [Mass/Vol] Negative Normal Negative AO Auto Urine SS Hemoglobin Auto test strip (U) [Mass/Vol] Negative (02/10/23 1:14 PM) Normal Negative AO Auto Urine SS Ketones Ql (U) Negative Normal Negative AO Auto Urine SS UA Leuk Est Negative (02/10/23 1:14 PM) Normal Negative AO Auto Urine SS UA Nitrite Negative (02/10/23 1:14 PM) Normal Negative AO Auto Urine SS UA pH 7.0 (02/10/23 1:14 PM) Normal 5.0 - 8.0 AO Auto Urine SS UA Protein Negative Normal Negative AO Auto Urine SS UA Spec Grav 1.015 (02/10/23 1:14 PM) Normal 1.015-1.025 AO Auto Urine SS UA Specimen Type Clean Catch (02/10/23 1:14 PM) Normal AO Auto Urine SS UA Urobilinogen 0.2 E.U./dL Normal 0.2-1.0 AO Auto Urine SS LABORATORYOrdered By: SYSTEM SYSTEM on 02-10-2023 Basophil, Absolute 0.0 103/mcL Normal 0.0 - 0.2 10^3/mcL AO Workflow SS Basophils/100 WBC (Bld) 0.7 % Normal 0.0 - 2.5 % AO Workflow SS Calcium [Mass/Vol] 9.5 mg/dL Normal 8.4 - 10. 2 mg/dL AO ADM SS Chloride [Moles/Vol] 101 mmol/L Normal 98 - 10 7 mmol/L AO ADM SS CO2 [Moles/Vol] 30 mmol/L Normal 23 - 31 mmol/L AO ADM SS Creatinine [Mass/Vol] 1.02 mg/dL Normal 0.70 - 1.30 mg/dL AO ADM SS Electrolyte Balance 11.0 mEq/L Normal 4.0 - 15 .0 mEq/L AO ADM SS Eosinophil, Absolute 0.0 103/mcL Normal 0.0 - 0 .4 10^3/mcL AO Workflow SS Eosinophils/100 WBC (Bld) 0.7 % Normal 0.0 - 7.0 % AO Workflow SS Erythrocyte distribution width (RBC) [Ratio] 14.5 % Normal 11.5 - 14.5 % AO Workflow SS GFR/1.73 sq M.predicted among blacks MDRD (S/P/Bld) [Vol rate/Area] 89 ml/min/1.73sqm Invalid Interpretation Code AO Chemistry S Comment on above: Interpretive Data: GFR Population mean for , Non- Americans Ages 20-29 = 116 mL/min/1.73 sq.m. Ages 30-39 = 107 mL/min/1.73 sq.m. Ages 40-49 = 99 mL/min/1.73 sq.m. Ages 50-59 = 93 mL/min/1.73 sq.m. Ages 60-69 = 85 mL/min/1.73 sq.m. Ages 70+ = 75 mL/min/1.73 sq.m. Chronic Kidney Disease: Less than 60 mL/min/1.73 square meters End Stage Renal Disease: Less than 15 mL/min/1.73 square meters GFR/1.73 sq M.predicted among non-blacks MDRD (S/P/Bld) [Vol rate/Area] 74 ml/min/1.73sqm Invalid Interpretation Code AO Chemistry S Comment on above: Interpretive Data: GFR Population mean for , Non- Americans Ages 20-29 = 116 mL/min/1.73 sq.m. Ages 30-39 = 107 mL/min/1.73 sq.m. Ages 40-49 = 99 mL/min/1.73 sq.m. Ages 50-59 = 93 mL/min/1.73 sq.m. Ages 60-69 = 85 mL/min/1.73 sq.m. Ages 70+ = 75 mL/min/1.73 sq.m. Chronic Kidney Disease: Less than 60 mL/min/1.73 square meters End Stage Renal Disease: Less than 15 mL/min/1.73 square meters Glucose [Mass/Vol] 103 mg/dL Normal 80 - 115 mg/dL AO ADM SS Hematocrit (Bld) [Volume fraction] 40.9 % Low 42.0 - 52.0 % AO Workflow SS Hemoglobin (Bld) [Mass/Vol] 13.9 G/dL Low 14.0 - 18.0 G/dL AO Workflow SS Lymphocyte, Absolute 0.8 103/mcL Normal 0.8 - 3 .9 10^3/mcL AO Workflow SS Lymphocytes/100 WBC (Bld) 14.4 % Normal 10.0 - 50.0 % AO Workflow SS MCH (RBC) [Entitic mass] 32.5 pg High 27.0 - 31.2 pg AO Workflow SS MCHC 34.1 G/dL Normal 31.8 - 35.4 G/dL AO Workflow SS MCV (RBC) [Entitic vol] 95.3 fL High 80.0 - 94.0 fL AO Workflow SS Monocyte distribution width Auto (Bld) [Entitic vol] 15.29 1 Normal 0.00 - 20.00 AO Workflow SS Comment on above: Result Comment: For ED adult patients suspected of sepsis, MDW<=20.0 does not rule out sepsis or risk of sepsis Monocyte, Absolute 0.5 103/mcL Normal 0.2 - 1.0 10^3/mcL AO Workflow SS Monocytes/100 WBC (Bld) 8.8 % Normal 1.7 - 13.0 % AO Workflow SS Neutrophil, Absolute 4.2 103/mcL Normal 2.9 - 6 .2 10^3/mcL AO Workflow SS Neutrophils/100 WBC (Bld) 75.4 % Normal 37.0 - 80.0 % AO Workflow SS Platelet mean volume (Bld) [Entitic vol] 9.4 fL Normal 7.4 - 10.4 fL AO Workflow SS Platelets (Bld) [#/Vol] 212 103/mcL Normal 130 - 400 10^3/mcL AO Workflow SS Potassium [Moles/Vol] 4.2 mmol/L Normal 3.5 - 5.1 mmol/L AO ADM SS RBC (Bld) [#/Vol] 4.29 106/mcL Normal 4.04 - 6.1 3 10^6/mcL AO Workflow SS Sodium [Moles/Vol] 142 mmol/L Normal 136 - 145 mmol/L AO ADM SS Urea nitrogen [Mass/Vol] 9 mg/dL Normal 7 - 18 mg/dL AO ADM SS Urea nitrogen/Creatinine [Mass ratio] 9 ratio Normal 7 - 27 ratio AO ADM SS WBC (Bld) [#/Vol] 5.5 103/mcL Normal 4.6 - 10.8 10^3/mcL AO Workflow SS UAon 02-10-2023 Color (U) Yellow Normal [facility] ([place]) Comment on above: Performed By: #### A SARI SANCHES, ALC, CBC, BMP, ADIFF, GFR #### [address] [address] Glucose (U) [Mass/Vol] Negative Normal Negative [facility] ([place]) Comment on above: Performed By: #### A SARI SANCHES, ALC, CBC, BMP, ADIFF, GFR #### [address] [address] Ketones Ql (U) Negative Normal Negative [facility] ([place]) Comment on above: Performed By: #### A SARI SANCHES, ALC, CBC, BMP, ADIFF, GFR #### [address] [address] UA Appear Clear Normal Clear [facility] ([place]) Comment on above: Performed By: #### A SARI SANCHES, ALC, CBC, BMP, ADIFF, GFR #### [address] [address] UA Blood Negative Normal Negative [facility] ([place]) Comment on above: Performed By: #### A SARI SANCHES, ALC, CBC, BMP, ADIFF, GFR #### [address] [address] UA Leuk Est Negative Normal Negative [facility] ([place]) Comment on above: Performed By: #### A SARI SANCHES, ALC, CBC, BMP, ADIFF, GFR #### [address] [address] UA Nitrite Negative Normal Negative [facility] ([place]) Comment on above: Performed By: #### A SARI SANCHES, ALC, CBC, BMP, ADIFF, GFR #### [address] [address] UA pH 7.0 Normal 5.0 - 8.0 [facility] ([place]) Comment on above: Performed By: #### A SARI SANCHES, ALC, CBC, BMP, ADIFF, GFR #### [address] [address] UA Protein Negative Normal Negative [facility] ([place]) Comment on above: Performed By: #### A SARI SANCHES, ALC, CBC, BMP, ADIFF, GFR #### [address] [address] UA Spec Grav 1.015 Normal 1.015-1.025 [facility] ([place]) Comment on above: Performed By: #### A SARI SANCHES, ALC, CBC, BMP, ADIFF, GFR #### [address] [address] UA Specimen Type Clean Catch Normal [facility] ([place]) Comment on above: Performed By: #### A SARI SANCHES, ALC, CBC, BMP, ADIFF, GFR #### [address] [address] UA Urobilinogen 0.2 E.U./dL Normal 0.2-1.0 [facility] ([place]) Comment on above: Performed By: #### A SARI SANCHES, ALC, CBC, BMP, ADIFF, GFR #### [address] [address] Urobilinogen (U) [Mass/Vol] Negative Normal Negative [facility] ([place]) Comment on above: Performed By: #### A SARI SANCHES, ALC, CBC, BMP, ADIFF, GFR #### [place] [address] UDRUGon 02-10-2023 Amphetamine (u) Negative Normal Negative [facility] ([place]) Comment on above: Performed By: #### A SARI SANCHES, STEFANI, CBC, BMP, ADIFF, GFR #### [place] [address] Barbiturate (u) Negative Normal Negative [facility] ([place]) Comment on above: Performed By: #### A SARI SANCHES, ALC, CBC, BMP, ADIFF, GFR #### [address] [address] Benzodiazepine (u) Negative Normal Negative [facility] ([place]) Comment on above: Performed By: #### A SARI SANCHES, ALC, CBC, BMP, ADIFF, GFR #### [address] [address] Cannabinoid (u) Negative Normal Negative [facility] ([place]) Comment on above: Performed By: #### A SARI SANCHES, ALC, CBC, BMP, ADIFF, GFR #### [address] [address] Cocaine Ql (U) Negative Normal Negative [facility] ([place]) Comment on above: Performed By: #### A SARI SANCHES, ALC, CBC, BMP, ADIFF, GFR #### [address] [address] Methadone Ql (U) Negative Normal Negative [facility] ([place]) Comment on above: Performed By: #### A SARI SANCHES, ALC, CBC, BMP, ADIFF, GFR #### [place] [id number] [place], [place] [address] Opiate (u) Negative Normal Negative [facility] ([place]) Comment on above: Performed By: #### A SARI SANCHES, ALC, CBC, BMP, ADIFF, GFR #### [place] [id number] [place], [place] [address] PCP (u) Negative Normal Negative [facility] ([place]) Comment on above: Performed By: #### A SARI SANCHES, ALC, CBC, BMP, ADIFF, GFR #### [place] [id number] [place], [place] [address] Urine Drugs screened: See Below Normal [facility] ([place]) Comment on above: Result Comment: This drug screen is a presumptive screening only. No confirmation will be performed unless requested. Drugs screened include: Threshold Amphetamines/Methamphetamines 1,000 ng/mL Barbiturates 200 ng/mL Benzodiazepine metabolites 200 ng/mL Cannabinoids (THC metabolites) 50 ng/mL Cocaine 300 ng/mL Opiates 300 ng/mL Methadone 300 ng/mL Phencyclidine (PCP) 25 ng/mL Testing has been performed FOR MEDICAL PURPOSES ONLY. Performed By: #### A SARI SANCHES, ALC, CBC, BMP, ADIFF, GFR #### [address] [address] XR HIP LEFT W/PELVIS 4 VIEWS on 09-22-2022 XR HIP LEFT W/PELVIS 4 VIEWS ORIGINAL EXAMINATION: 2 XRAY VIEWS OF THE LEFT HIP. 2 VIEWS OF THE PELVIS. COMPARISON: None. HISTORY: ORDERING SYSTEM PROVIDED HISTORY: Reason for Exam: pain FINDINGS: No acute fracture or dislocation. The pelvic ring is intact. Mild degenerative changes of the bilateral hips and spine. Nonobstructive bowel gas pattern with stool and gas projecting over the rectal vault. Phleboliths projecting over the low pelvis. No radiopaque retained foreign body or appreciable soft tissue swelling. IMPRESSION: No definite acute traumatic findings by radiograph. I have personally reviewed the images of this examination and agree with the resident's findings and interpretation. Interpreted by: Valentin Ryan Preliminary Report By: Gabino Elizondo Electronically signed By Valentin Ryan Dictated Date: 09/22/2022 9:11:36 PM Prelim Date: 09/22/2022 9:12:59 PM Sign Date: 09/22/2022 9:59:47 PM Ordering Provider: JENNIFER Marrero [facility]) .Auto Diffon 09-16-2022 Basophil, Absolute 0.0 10 3/mcL Normal 0.0-0.2 [facility] ([place]) Comment on above: Performed By: #### A DIFF, CBC, GFR, BMP, ANEU, W #### [address] [address] Basophils/100 WBC (Bld) 0.6 % Normal 0.0-2.5 A [facility] ([place]) Comment on above: Performed By: #### A DIFF, CBC, GFR, BMP, ANEUSARI #### [address] [address] Eosinophil, Absolute 0.0 10 3/mcL Normal 0.0-0.4 [facility] ([place]) Comment on above: Performed By: #### A DIFF, CBC, GFR, BMP, ANEUSARI #### [address] [address] Eosinophils/100 WBC (Bld) 0.8 % Normal 0.0-7.0 [facility] ([place]) Comment on above: Performed By: #### A DIFF, CBC, GFR, BMP, ANEU, W #### [address] [address] Lymphocyte, Absolute 0.8 10 3/mcL Normal 0.8-3.9 [facility] ([place]) Comment on above: Performed By: #### A DIFF, CBC, GFR, BMP, ANEUMDW #### [address] [address] Lymphocytes/100 WBC (Bld) 14.2 % Normal 10.0-50.0 [facility] ([place]) Comment on above: Performed By: #### A DIFF, CBC, GFR, BMP, ANEU, W #### [address] [address] Monocyte, Absolute 0.5 10 3/mcL Normal 0.2-1.0 [facility] ([place]) Comment on above: Performed By: #### A DIFF, CBC, GFR, BMP, SARI HENDRIX #### [address] [address] Monocytes/100 WBC (Bld) 8.4 % Normal 1.7-13.0 A [facility] ([place]) Comment on above: Performed By: #### A DIFF, CBC, GFR, BMP, SARI HENDRIX #### [address] [address] Neutrophils/100 WBC (Bld) 76.0 % Normal 37.0-80.0 [facility] ([place]) Comment on above: Performed By: #### A DIFF, CBC, GFR, BMP, SARI HENDRIX #### [address] [address] .GFRon 09-16-2022 GFR Non- 63 ml/min/1.73sqm Normal [facility] ([place]) Comment on above: Result Comment: GFR Population mean for , Non- Americans Ages 20-29 = 116 mL/min/1.73 sq.m. Ages 30-39 = 107 mL/min/1.73 sq.m. Ages 40-49 = 99 mL/min/1.73 sq.m. Ages 50-59 = 93 mL/min/1.73 sq.m. Ages 60-69 = 85 mL/min/1.73 sq.m. Ages 70+ = 75 mL/min/1.73 sq.m. Chronic Kidney Disease: Less than 60 mL/min/1.73 square meters End Stage Renal Disease: Less than 15 mL/min/1.73 square meters Performed By: #### A DIFF, CBC, GFR, BMP, SARI HENDRIX #### [address] [address] GFR 76 ml/min/1.73sqm Normal [facility] ([place] Comment on above: Result Comment: GFR Population mean for , Non- Americans Ages 20-29 = 116 mL/min/1.73 sq.m. Ages 30-39 = 107 mL/min/1.73 sq.m. Ages 40-49 = 99 mL/min/1.73 sq.m. Ages 50-59 = 93 mL/min/1.73 sq.m. Ages 60-69 = 85 mL/min/1.73 sq.m. Ages 70+ = 75 mL/min/1.73 sq.m. Chronic Kidney Disease: Less than 60 mL/min/1.73 square meters End Stage Renal Disease: Less than 15 mL/min/1.73 square meters Performed By: #### A DIFF, CBC, GFR, BMP, ANEU, MDGifty #### [address] [address] .MDWon 09-16-2022 Monocyte Distribution Width 15.65 Normal 0.00-20.00 [facility] ([place]) Comment on above: Result Comment: For ED adult patients suspected of sepsis, MDW<=20.0 does not rule out sepsis or risk of sepsis Performed By: #### A DIFF, CBC, GFR, BMP, ANEUSARI #### [address] [address] .NEUABSon 09-16-2022 Neutrophil, Absolute 4.3 10 3/mcL Normal 2.9-6.2 [facility] ([place]) Comment on above: Performed By: #### A DIFF, CBC, GFR, BMP, ANEU, SARI #### [address] [address] Martell 09-16-2022 Ethanol Level <3 Normal 0-3 [facility] ([place]) Comment on above: Performed By: #### A DIFF, CBC, GFR, BMP, ANEUSARI #### [address] [address] BMPon 09-16-2022 BUN/Creatinine Ratio 8 ratio Normal 7-27 [facility] ([place]) Comment on above: Performed By: #### A DIFF, CBC, GFR, BMP, ANEUSARI #### [address] [address] Calcium [Mass/Vol] 9.2 mg/dL Normal 8.4-10.2 [facility] ([place]) Comment on above: Performed By: #### A DIFF, CBC, GFR, BMP, SARI HENDRIX #### [address] [address] Chloride [Moles/Vol] 102 mmol/L Normal 98-107 [facility] ([place]) Comment on above: Performed By: #### A DIFF, CBC, GFR, BMP, SARI HENDRIX #### [address] [address] CO2 [Moles/Vol] 34 mmol/L High 23-31 [facility] ([place]) Comment on above: Performed By: #### A DIFF, CBC, GFR, BMP, SARI HENDRIX #### [address] [address] Creatinine [Mass/Vol] 1.17 mg/dL Normal 0.70-1.30 [facility] ([place]) Comment on above: Performed By: #### A DIFF, CBC, GFR, BMP, SARI HENDRIX #### [address] [address] Electrolyte Balance 7.0 mEq/L Normal 4.0-15.0 [facility] ([place]) Comment on above: Performed By: #### A DIFF, CBC, GFR, BMP, SARI HENDRIX #### [address] [address] Glucose [Mass/Vol] 113 mg/dL Normal 80-115 [facility] ([place]) Comment on above: Performed By: #### A DIFF, CBC, GFR, BMP, SARI HENDRIX #### [address] [address] Potassium [Moles/Vol] 4.0 mmol/L Normal 3.5-5.1 [facility] ([place]) Comment on above: Performed By: #### A DIFF, CBC, GFR, BMP, SARI HENDRIX #### [address] [address] Sodium [Moles/Vol] 143 mmol/L Normal 136-145 [facility] ([place]) Comment on above: Performed By: #### A DIFF, CBC, GFR, BMP, MD SIMEONW #### [address] [address] Urea nitrogen [Mass/Vol] 9 mg/dL Normal 7-18 [facility] ([place]) Comment on above: Performed By: #### A DIFF, CBC, GFR, BMP, MD SIMEONW #### [place] [id number] CBCon 09-16-2022 Erythrocyte distribution width (RBC) [Ratio] 13.4 % Normal 11.5-14.5 [facility] ([place]) Comment on above: Performed By: #### A DIFF, CBC, GFR, BMP, SARI HENDRIX #### [place] [id number] Hematocrit (Bld) [Volume fraction] 40.8 % Low 42.0-52.0 [facility] ([place]) Comment on above: Performed By: #### A DIFF, CBC, GFR, BMP, SARI HENDRIX #### [place] [address] Hgb 14.1 G/dL Normal 14.0-18.0 [facility] ([place]) Comment on above: Performed By: #### A DIFF, CBC, GFR, BMP, MD SIMEONW #### [address] [address] MCH (RBC) [Entitic mass] 33.0 pg High 27.0-31.2 [facility] ([place]) Comment on above: Performed By: #### A DIFF, CBC, GFR, BMP, MD SIMEONW #### [place] [id number] MCHC 34.4 G/dL Normal 31.8-35.4 [facility] ([place]) Comment on above: Performed By: #### A DIFF, CBC, GFR, BMP, ANEU, MDW #### [place] [id number] MCV (RBC) [Entitic vol] 95.9 fL High 80.0-94.0 A [facility] ([place]) Comment on above: Performed By: #### A DIFF, CBC, GFR, BMP, SARI HENDRIX #### [address] [address] Platelet 200 10 3/mcL Normal 130-400 [facility] ([place]) Comment on above: Performed By: #### A DIFF, CBC, GFR, BMP, SARI HENDRIX #### [address] [address] Platelet mean volume (Bld) [Entitic vol] 9.6 fL Normal 7.4-10.4 [facility] ([place]) Comment on above: Performed By: #### A DIFF, CBC, GFR, BMP, SARI HENDRIX #### [address] [address] RBC 4.25 10 6/mcL Normal 4.04-6.13 [facility] ([place]) Comment on above: Performed By: #### A DIFF, CBC, GFR, BMP, SARI HENDRIX #### [address] [address] WBC 5.6 10 3/mcL Normal 4.6-10.8 [facility] ([place]) Comment on above: Performed By: #### A DIFF, CBC, GFR, NANCI, SARI HENDRIX #### [address] [address] CKon 09-16-2022 CK [Catalytic activity/Vol] 122 U/L Normal 39-308 [facility] ([place]) Comment on above: Performed By: #### A DIFF, CBC, GFR, BMP, SARI HENDRIX #### [address] [address] [id number] 09-16-2022 SARS-CoV-2 (COVID-19) RNA JENNIFER+probe Ql (Unsp spec) Negative Normal Negative [facility] ([place]) Comment on above: Performed By: #### A DIFF, CBC, GFR, BMP, SARI HENDRIX #### [place] [address] SARS-CoV-2 (COVID-19) RNA JENNIFER+probe Ql (Unsp spec) [facility] ([place]) Comment on above: Result Comment: Nega tive results do not preclude SARS-CoV-2 infection and should not be used as the sole basis for patient management decisions. Negative results must be combined with clinical observations, patient history, and epidemiological information. There is a risk of false negative values resulting from improperly collected, transported, or handled specimens. There is a risk of false negative values due to the presence of sequence variants in the pathogen targets of the assay, procedural errors, amplification inhibitors in specimens, or inadequate numbers of organisms for amplification. BERNABE SARS-CoV-2 Assay is a Real-Time reverse-transcriptase polymerase chain reaction (RT-PCR) based qualitative in vitro diagnostic test intended for the qualitative detection of nucleic acid from the SARS-CoV-2 in nasopharyngeal swab specimens collected from individuals suspected of COVID-19 by their healthcare provider. Testing is limited to laboratories certified under the Clinical Laboratory Improvement Amendments of 1988 (CLIA), 42 U.S.C. ?263a, to perform moderate and high complexity tests. COVID-19 Int Performed By: #### A DIFF, CBC, GFR, BMP, ANEU, W #### [address] [address] TOXSCon 09-16-2022 U Ampheta (AO) Negative [facility] ([place]) Comment on above: Performed By: #### A MYRON MDW, ALC, CBC, BMP, ADIFF, GFR #### [address] [address] U Amanda (AO) Negative [facility] ([place]) Comment on above: Performed By: #### A MYRON MDW, ALC, CBC, BMP, ADIFF, GFR #### [address] [address] U Kiko (AO) Negative [facility] ([place]) Comment on above: Performed By: #### A MYRON, MDW, ALC, CBC, BMP, ADIFF, GFR #### [address] [address] U Cannab (AO) Negative [facility] ([place]) Comment on above: Performed By: #### A SARI SANCHES, ALC, CBC, BMP, ADIFF, GFR #### [address] [address] U Cocaine (AO) Negative [facility] ([place] Comment on above: Performed By: #### A SARI SANCHES, ALC, CBC, BMP, ADIFF, GFR #### [address] [address] U Methadone (AO) Negative [facility] ([place]) Comment on above: Performed By: #### A SARI SANCHES, ALC, CBC, BMP, ADIFF, GFR #### [address] [address] U PCP (AO) Positive [facility] ([place] Comment on above: Performed By: #### A SARI SANCHES, ALC, CBC, BMP, ADIFF, GFR #### [address] [address] U TCA (AO) Negative [facility] ([place]) Comment on above: Performed By: #### A SARI SANCHES, ALC, CBC, BMP, ADIFF, GFR #### [address] [address] Urine Opiates (AO) Negative [facility] ([place]) Comment on above: Performed By: #### A SARI SANCHES, ALC, CBC, BMP, ADIFF, GFR #### [address] [address] .Auto Diffon 08-23-2022 Basophil, Absolute 0.0 10 3/mcL Normal 0.0-0.2 [facility] ([place]) Comment on above: Performed By: #### A DIFF, CBC, GFR, NANCI, SARI HENDRIX #### [address] [address] Basophils/100 WBC (Bld) 0.4 % Normal 0.0-2.5 A [facility] ([place]) Comment on above: Performed By: #### A DIFF, CBC, GFR, NANCI, SARI HENDRIX #### [address] [address] Eosinophil, Absolute 0.1 10 3/mcL Normal 0.0-0.4 [facility] ([place]) Comment on above: Performed By: #### A DIFF, CBC, GFR, BMP, ANEU, W #### [address] [address] Eosinophils/100 WBC (Bld) 1.5 % Normal 0.0-7.0 [facility] ([place]) Comment on above: Performed By: #### A DIFF, CBC, GFR, BMP, ANEUMDW #### [address] [address] Lymphocyte, Absolute 1.1 10 3/mcL Normal 0.8-3.9 [facility] ([place]) Comment on above: Performed By: #### A DIFF, CBC, GFR, BMP, ANEUSARI #### [address] [address] Lymphocytes/100 WBC (Bld) 16.1 % Normal 10.0-50.0 [facility] ([place]) Comment on above: Performed By: #### A DIFF, CBC, GFR, BMP, SARI HENDRIX #### [address] [address] Monocyte, Absolute 0.6 10 3/mcL Normal 0.2-1.0 [facility] ([place]) Comment on above: Performed By: #### A DIFF, CBC, GFR, BMP, SARI HENDRIX #### [address] [address] Monocytes/100 WBC (Bld) 8.6 % Normal 1.7-13.0 [facility] ([place]) Comment on above: Performed By: #### A DIFF, CBC, GFR, BMP, ANEUSARI #### [address] [address] Neutrophils/100 WBC (Bld) 73.4 % Normal 37.0-80.0 [facility] ([place]) Comment on above: Performed By: #### A DIFF, CBC, GFR, BMP, ANEUSARI #### [address] [address] .GFRon 08-23-2022 GFR 81 ml/min/1.73sqm Normal [facility] ([place]) Comment on above: Result Comment: GFR Population mean for , Non- Americans Ages 20-29 = 116 mL/min/1.73 sq.m. Ages 30-39 = 107 mL/min/1.73 sq.m. Ages 40-49 = 99 mL/min/1.73 sq.m. Ages 50-59 = 93 mL/min/1.73 sq.m. Ages 60-69 = 85 mL/min/1.73 sq.m. Ages 70+ = 75 mL/min/1.73 sq.m. Chronic Kidney Disease: Less than 60 mL/min/1.73 square meters End Stage Renal Disease: Less than 15 mL/min/1.73 square meters Performed By: #### A DIFF, CBC, GFR, BMPSIMEON MDW #### [address] [address] GFR Non- 67 ml/min/1.73sqm Normal [facility] ([place]) Comment on above: Result Comment: GFR Population mean for , Non- Americans Ages 20-29 = 116 mL/min/1.73 sq.m. Ages 30-39 = 107 mL/min/1.73 sq.m. Ages 40-49 = 99 mL/min/1.73 sq.m. Ages 50-59 = 93 mL/min/1.73 sq.m. Ages 60-69 = 85 mL/min/1.73 sq.m. Ages 70+ = 75 mL/min/1.73 sq.m. Chronic Kidney Disease: Less than 60 mL/min/1.73 square meters End Stage Renal Disease: Less than 15 mL/min/1.73 square meters Performed By: #### A DIFF, CBC, GFR, SIMEON CHRISTINE MDW #### [address] [address] .MDWon 08-23-2022 Monocyte Distribution Width 17.76 Normal 0.00-20.00 [facility] ([place]) Comment on above: Result Comment: For ED adult patients suspected of sepsis, MDW<=20.0 does not rule out sepsis or risk of sepsis Performed By: #### A DIFF, CBC, GFR, BMPSIMEON MDW #### [place] [id number] .NEUABSon 08-23-2022 Neutrophil, Absolute 5.1 10 3/mcL Normal 2.9-6.2 [facility] ([place]) Comment on above: Performed By: #### A DIFF, CBC, GFR, BMP, SARI HENDRIX #### [place] [address] ACETAon 08-23-2022 Acetaminophen [Mass/Vol] 0.0 ug/mL Low 10.0-30.0 [facility] ([place]) Comment on above: Performed By: #### A DIFF, CBC, GFR, BMP, SARI HENDRIX #### [place] [address] [place]ell 08-23-2022 Ethanol Level <3 Normal 0-3 [facility] ([place]) Comment on above: Performed By: #### A DIFF, CBC, GFR, SIMEON CHRISTINE MDW #### [place] [address] CBCon 08-23-2022 Erythrocyte distribution width (RBC) [Ratio] 13.4 % Normal 11.5-14.5 [facility] ([place]) Comment on above: Performed By: #### A DIFF, CBC, GFR, BMP, SARI HENDRIX #### [place] [address] Hematocrit (Bld) [Volume fraction] 39.5 % Low 42.0-52.0 [facility] ([place]) Comment on above: Performed By: #### A DIFF, CBC, GFR, BMPSIMEON MDW #### [place] [address] Hgb 14.0 G/dL Normal 14.0-18.0 [facility] ([place]) Comment on above: Performed By: #### A DIFF, CBC, GFR, BMPSIMEON MDW #### [address] [address] MCH (RBC) [Entitic mass] 33.9 pg High 27.0-31.2 [facility] ([place]) Comment on above: Performed By: #### A DIFF, CBC, GFR, BMP, ANEUMDW #### [address] [address] MCHC 35.5 G/dL High 31.8-35.4 [facility] ([place]) Comment on above: Performed By: #### A DIFF, CBC, GFR, BMP, ANEU, W #### [address] [address] MCV (RBC) [Entitic vol] 95.6 fL High 80.0-94.0 A [facility] ([place]) Comment on above: Performed By: #### A DIFF, CBC, GFR, BMP, SARI HENDRIX #### [address] [address] Platelet 166 10 3/mcL Normal 130-400 [facility] ([place]) Comment on above: Performed By: #### A DIFF, CBC, GFR, BMP, SARI HENDRIX #### [address] [address] Platelet mean volume (Bld) [Entitic vol] 9.0 fL Normal 7.4-10.4 [facility] ([place]) Comment on above: Performed By: #### A DIFF, CBC, GFR, BMP, ANEUMDW #### [address] [address] RBC 4.13 10 6/mcL Normal 4.04-6.13 [facility] ([place]) Comment on above: Performed By: #### A DIFF, CBC, GFR, BMP, ANEUSARI #### [address] [address] WBC 6.9 10 3/mcL Normal 4.6-10.8 [facility] ([place]) Comment on above: Performed By: #### A DIFF, CBC, GFR, BMP, ANEUSARI #### [address] [address] CMPon 08-23-2022 Albumin Level 3.7 G/dL Normal 3.4-4.8 [facility] ([place]) Comment on above: Performed By: #### A DIFF, CBC, GFR, BMP, SARI HENDRIX #### [address] [address] Albumin/Globulin [Mass ratio] 1.2 {ratio} Normal 1.1-2.5 [facility] ([place]) Comment on above: Performed By: #### A DIFF, CBC, GFR, NANCI, SARI HENDRIX #### [address] [address] ALP [Catalytic activity/Vol] 80 U/L Normal 40-135 [facility] ([place]) Comment on above: Performed By: #### A DIFF, CBC, GFR, BMP, SARI HENDRIX #### [address] [address] ALT [Catalytic activity/Vol] 25 U/L Normal 16-63 [facility] ([place]) Comment on above: Performed By: #### A DIFF, CBC, GFR, NANCI, SARI HENDRIX #### [address] [address] AST [Catalytic activity/Vol] 19 U/L Normal 10-40 [facility] ([place]) Comment on above: Performed By: #### A DIFF, CBC, GFR, BMP, SARI HENDRIX #### [address] [address] Bili Total 1.0 mg/dL Normal 0.2-1.0 [facility] ([place]) Comment on above: Result Comment: Use of this assay is not recommended for patients undergoing treatment with eltrombopag due to the potential for falsely elevated results. Performed By: #### A DIFF, CBC, GFR, BMP, SARI HENDRIX #### [address] [address] BUN/Creatinine Ratio 11 ratio Normal 7-27 [facility] ([place]) Comment on above: Performed By: #### A DIFF, CBC, GFR, BMP, SARI HENDRIX #### [address] [address] Calcium [Mass/Vol] 9.2 mg/dL Normal 8.4-10.2 [facility] ([place]) Comment on above: Performed By: #### A DIFF, CBC, GFR, BMP, SARI HENDRIX #### [place] [address] Chloride [Moles/Vol] 102 mmol/L Normal 98-107 [facility] ([place]) Comment on above: Performed By: #### A DIFF, CBC, GFR, BMP, SARI HENDRIX #### [place] [address] CO2 [Moles/Vol] 32 mmol/L High 23-31 [facility] ([place]) Comment on above: Performed By: #### A DIFF, CBC, GFR, BMP, SRAI HENDRIX #### [address] [address] Creatinine [Mass/Vol] 1.11 mg/dL Normal 0.70-1.30 [facility] ([place]) Comment on above: Performed By: #### A DIFF, CBC, GFR, BMP, SARI HENDRIX #### [address] [address] Electrolyte Balance 7.0 mEq/L Normal 4.0-15.0 [facility] ([place]) Comment on above: Performed By: #### A DIFF, CBC, GFR, BMP, SARI HENDRIX #### [address] [address] Globulin 3.1 G/dL Normal [facility] ([place]) Comment on above: Performed By: #### A DIFF, CBC, GFR, BMP, SARI HENDRIX #### [address] [address] Glucose [Mass/Vol] 115 mg/dL Normal 80-115 [facility] ([place]) Comment on above: Performed By: #### A DIFF, CBC, GFR, BMP, SARI HENDRIX #### [address] [address] Potassium [Moles/Vol] 3.9 mmol/L Normal 3.5-5.1 [facility] ([place]) Comment on above: Performed By: #### A DIFF, CBC, GFR, BMP, ANEU, SARI #### [address] [address] Sodium [Moles/Vol] 141 mmol/L Normal 136-145 [facility] ([place]) Comment on above: Performed By: #### A DIFF, CBC, GFR, BMP, ANEU, W #### [address] [address] Total Protein 6.8 G/dL Normal 6.4-8.2 [facility]) Comment on above: Performed By: #### A DIFF, CBC, GFR, BMP, SARI HENDRIX #### [address] [address] Urea nitrogen [Mass/Vol] 12 mg/dL Normal 7-18 [facility]) Comment on above: Performed By: #### A DIFF, CBC, GFR, BMP, SARI HENDRIX #### [address] [address] [id number] 08-23-2022 SARS-CoV-2 (COVID-19) RNA JENNIFER+probe Ql (Unsp spec) Negative Normal Negative [facility]) Comment on above: Performed By: #### A SARI SANCHES, ALC, CBC, BMP, ADIFF, GFR #### [address] [address] SARS-CoV-2 (COVID-19) RNA JENNIFER+probe Ql (Unsp spec) Normal [facility] ([place]) Comment on above: Result Comment: Nega tive results do not preclude SARS-CoV-2 infection and should not be used as the sole basis for patient management decisions. Negative results must be combined with clinical observations, patient history, and epidemiological information. There is a risk of false negative values resulting from improperly collected, transported, or handled specimens. There is a risk of false negative values due to the presence of sequence variants in the pathogen targets of the assay, procedural errors, amplification inhibitors in specimens, or inadequate numbers of organisms for amplification. BERNABE SARS-CoV-2 Assay is a Real-Time reverse-transcriptase polymerase chain reaction (RT-PCR) based qualitative in vitro diagnostic test intended for the qualitative detection of nucleic acid from the SARS-CoV-2 in nasopharyngeal swab specimens collected from individuals suspected of COVID-19 by their healthcare provider. Testing is limited to laboratories certified under the Clinical Laboratory Improvement Amendments of 1988 (CLIA), 42 U.S.C. ?263a, to perform moderate and high complexity tests. COVID-19 Int Performed By: #### A MYRON, MDW, ALC, CBC, BMP, ADIFF, GFR #### [facility] [id number] [place] [id number] LABORATORYOrdered By: Victoriano Malin on 08-23-2022 Acetaminophen [Mass/Vol] 0.0 ug/mL Invalid Interpretation Code 10.0 - 30.0 mcg/mL AO Chemistry S Amphetamines Screen Ql (U) Negative (08/23/22 1:32 AM) Invalid Interpretation Code AO Manual Urine SS Barbiturates Screen Ql (U) Negative (08/23/22 1:32 AM) Invalid Interpretation Code AO Manual Urine SS Basophil, Absolute 0.0 103/mcL Invalid Interpretation Code 0.0 - 0.2 10^3/mcL AO Workflow SS Basophils/100 WBC (Bld) 0.4 % Invalid Interpretation Code 0.0 - 2.5 % AO Workflow SS Benzodiazepines Ql (U) Positive (08/23/22 1:32 AM) Invalid Interpretation Code AO Manual Urine SS Benzoylecgonine Screen Ql (U) Negative (08/23/22 1:32 AM) Invalid Interpretation Code AO Manual Urine SS Cannabinoids tested Screen Nom (U) Negative (08/23/22 1:32 AM) Invalid Interpretation Code AO Manual Urine SS Eosinophil, Absolute 0.1 103/mcL Invalid Interpretation Code 0.0 - 0.4 10^3/mcL AO Workflow SS Eosinophils/100 WBC (Bld) 1.5 % Invalid Interpretation Code 0.0 - 7.0 % AO Workflow SS Erythrocyte distribution width (RBC) [Ratio] 13.4 % Invalid Interpretation Code 11.5 - 14.5 % AO Workflow SS Ethanol [Mass/Vol] mg/dL Invalid Interpretation Code 0 - 3 mg/dL AO Chemistry S Hematocrit (Bld) [Volume fraction] 39.5 % Invalid Interpretation Code 42.0 - 52.0 % AO Workflow SS Hemoglobin (Bld) [Mass/Vol] 14.0 G/dL Invalid Interpretation Code 14.0 - 18.0 G/dL AO Workflow SS Lymphocyte, Absolute 1.1 103/mcL Invalid Interpretation Code 0.8 - 3.9 10^3/mcL AO Workflow SS Lymphocytes/100 WBC (Bld) 16.1 % Invalid Interpretation Code 10.0 - 50.0 % AO Workflow SS MCH (RBC) [Entitic mass] 33.9 pg Invalid Interpretation Code 27.0 - 31.2 pg AO Workflow SS MCHC 35.5 G/dL Invalid Interpretation Code 31.8 - 35.4 G/dL AO Workflow SS MCV (RBC) [Entitic vol] 95.6 fL Invalid Interpretation Code 80.0 - 94.0 fL AO Workflow SS Methadone Screen Ql (U) Negative (08/23/22 1:32 AM) Invalid Interpretation Code AO Manual Urine SS Monocyte distribution width Auto (Bld) [Entitic vol] 17.76 Invalid Interpretation Code 0.00 - 20.00 AO Workflow SS Comment on above: Result Comment: For ED adult patients suspected of sepsis, MDW<=20.0 does not rule out sepsis or risk of sepsis Monocyte, Absolute 0.6 103/mcL Invalid Interpretation Code 0.2 - 1.0 10^3/mcL AO Workflow SS Monocytes/100 WBC (Bld) 8.6 % Invalid Interpretation Code 1.7 - 13.0 % AO Workflow SS Neutrophil, Absolute 5.1 103/mcL Invalid Interpretation Code 2.9 - 6.2 10^3/mcL AO Workflow SS Neutrophils/100 WBC (Bld) 73.4 % Invalid Interpretation Code 37.0 - 80.0 % AO Workflow SS Opiates Screen Ql (U) Negative (08/23/22 1:32 AM) Invalid Interpretation Code AO Manual Urine SS Phencyclidine Ql (U) Negative (08/23/22 1:32 AM) Invalid Interpretation Code AO Manual Urine SS Platelet mean volume (Bld) [Entitic vol] 9.0 fL Invalid Interpretation Code 7.4 - 10.4 fL AO Workflow SS Platelets (Bld) [#/Vol] 166 103/mcL Invalid Interpretation Code 130 - 400 10^3/mcL AO Workflow SS RBC (Bld) [#/Vol] 4.13 106/mcL Invalid Interpretation Code 4.04 - 6.13 10^6/mcL AO Workflow SS Salicylates [Mass/Vol] mg/dL Invalid Interpretation Code 2.8 - 20.0 mg/dL AO Chemistry S SARS-CoV-2 (COVID-19) RNA JENNIFER+probe Ql (Resp) Negative results do not preclude SARS-CoV-2 infection and should not be used as the sole basis for patient management decisions. Negative results must be combined with clinical observations, patient history, and epidemiological information.There is a risk of false negative values resulting from improperly collected, transported, or handled specimens.There is a risk of false negative values due to the presence of sequence variants in the pathogen targets of the assay, procedural errors, amplification inhibitors in specimens, or inadequate numbers of organisms for amplification.BERNABE SARS-CoV-2 Assay is a Real-Time reverse-transcriptase polymerase chain reaction (RT-PCR) based qualitative in vitro diagnostic test intended for the qualitative detection of nucleic acid from the SARS-CoV-2 in nasopharyngeal swab specimens collected from individuals suspected of COVID-19 by their healthcare provider. Testing is limited to laboratories certified under the Clinical Laboratory Improvement Amendments of 1988 (CLIA), 42 U.S.C. 263a, to perform moderate and high complexity tests. Invalid Interpretation Code AO Auto Urine SS Tricyclic antidepressants Screen Ql (U) Negative (08/23/22 1:32 AM) Invalid Interpretation Code AO Manual Urine SS WBC (Bld) [#/Vol] 6.9 103/mcL Invalid Interpretation Code 4.6 - 10.8 10^3/mcL AO Workflow SS LABORATORYOrdered By: SYSTEM SYSTEM on 08-23-2022 Albumin BCP dye [Mass/Vol] 3.7 G/dL Invalid Interpretation Code 3.4 - 4.8 G/dL AO ADM SS Albumin/Globulin [Mass ratio] 1.2 {ratio} Invalid Interpretation Code 1.1 - 2.5 ratio AO ADM SS ALP [Catalytic activity/Vol] 80 U/L Invalid Interpretation Code 40 - 135 U/L AO ADM SS ALT With P-5'-P [Catalytic activity/Vol] 25 U/L Invalid Interpretation Code 16 - 63 U/L AO ADM SS AST With P-5'-P [Catalytic activity/Vol] 19 U/L Invalid Interpretation Code 10 - 40 U/L AO ADM SS Bilirubin [Mass/Vol] 1.0 mg/dL Invalid Interpretation Code 0.2 - 1.0 mg/dL AO ADM SS Calcium [Mass/Vol] 9.2 mg/dL Invalid Interpretation Code 8.4 - 10.2 mg/dL AO ADM SS Chloride [Moles/Vol] 102 mmol/L Invalid Interpretation Code 98 - 107 mmol/L AO ADM SS CO2 [Moles/Vol] 32 mmol/L Invalid Interpretation Code 23 - 31 mmol/L AO ADM SS Creatinine [Mass/Vol] 1.11 mg/dL Invalid Interpretation Code 0.70 - 1.30 mg/dL AO ADM SS Electrolyte Balance 7.0 mEq/L Invalid Interpretation Code 4.0 - 15.0 mEq/L AO ADM SS GFR/1.73 sq M.predicted among blacks MDRD (S/P/Bld) [Vol rate/Area] 81 ml/min/1.73sqm Invalid Interpretation Code AO Chemistry S GFR/1.73 sq M.predicted among non-blacks MDRD (S/P/Bld) [Vol rate/Area] 67 ml/min/1.73sqm Invalid Interpretation Code AO Chemistry S Globulin 3.1 G/dL Invalid Interpretation Code AO ADM SS Glucose [Mass/Vol] 115 mg/dL Invalid Interpretation Code 80 - 115 mg/dL AO ADM SS Potassium [Moles/Vol] 3.9 mmol/L Invalid Interpretation Code 3.5 - 5.1 mmol/L AO ADM SS Protein [Mass/Vol] 6.8 G/dL Invalid Interpretation Code 6.4 - 8.2 G/dL AO ADM SS Sodium [Moles/Vol] 141 mmol/L Invalid Interpretation Code 136 - 145 mmol/L AO ADM SS Urea nitrogen [Mass/Vol] 12 mg/dL Invalid Interpretation Code 7 - 18 mg/dL AO ADM SS Urea nitrogen/Creatinine [Mass ratio] 11 ratio Invalid Interpretation Code 7 - 27 ratio AO ADM SS SALon 08-23-2022 Salicylate Level <0.2 Low 2.8-20.0 [facility] ([place]) Comment on above: Performed By: #### A DIFF, CBC, GFR, BMP, ANEU, MDW #### [address] [address] TOXSCon 08-23-2022 U Ampheta (AO) Negative [facility] ([place]) Comment on above: Performed By: #### T OXSC #### [place] [address] [address] U Amanda (AO) Negative [facility] ([place]) Comment on above: Performed By: #### T OXSC #### [place] [address] [address] U Kiko (AO) Positive [facility] ([place]) Comment on above: Performed By: #### T OXSC #### [place] [address] [address] U Cannab (AO) Negative [facility] ([place]) Comment on above: Performed By: #### T OXSC #### [place] [address] [address] U Cocaine (AO) Negative [facility] ([place]) Comment on above: Performed By: #### T OXSC #### [place] [address] [address] U Methadone (AO) Negative [facility] ([place]) Comment on above: Performed By: #### T OXSC #### [place] [address] [address] U PCP (AO) Negative [facility] ([place]) Comment on above: Performed By: #### T OXSC #### [place] [address] [address] U TCA (AO) Negative [facility] ([place]) Comment on above: Performed By: #### T OXSC #### [place] [address] [address] Urine Opiates (AO) Negative [facility] ([place]) Comment on above: Performed By: #### T OXSC #### [place] [address] [address] Vital Signs Date Time Vital Sign Value Performing Clinician Facility 12-18-2024 11:39-0400 Body temperature 97.9 [degF] Katelyn Kamara DRAWBENCH OPERATOR-C Work Phone: [facility] 12-18-2024 11:39-0400 Diastolic blood pressure 76 mm[Hg] Katelyn Kamara DRAWBENCH OPERATOR-C Work Phone: [facility] 12-18-2024 11:39-0400 Heart rate 72 /min Katelyn Kamara DRAWBENCH OPERATOR-C Work Phone: [facility] 12-18-2024 11:39-0400 Respiratory rate 13 /min Katelyn Kamara DRAWBENCH OPERATOR-C Work Phone: 7(522)[phone] [place] [address] 12-18-2024 11:39-0400 SaO2% (BldA) [Mass fraction] 100 % Katelyn Kamara DRAWBENCH OPERATOR-C Work Phone: 2(488)700-309837 [place] [address] 12-18-2024 11:39-0400 Systolic blood pressure 118 mm[Hg] Katelyn Kamara DRAWBENCH OPERATOR-C Work Phone: 7(693)319-334837 [place] [address] 12-18-2024 10:25-0400 Body height 177.8 cm Katelyn Kamara DRAWBENCH OPERATOR-C Work Phone: 9(631)004-237937 [place] [address] 12-18-2024 10:25-0400 Body mass index (BMI) [Ratio] 21.8 kg/m2 Katelyn Kamara DRAWBENCH OPERATOR-C Work Phone: 3(989)455-790237 [place] [address] 12-18-2024 10:25-0400 Body weight 69.1 kg Katelyn Kamara DRAWBENCH OPERATOR-C Work Phone: 0(724)[phone] [place] [address] 11-22-2024 13:49-0400 Body temperature 97.6 [degF] Katelyn Kamara DRAWBENCH OPERATOR-C Work Phone: [facility] 11-22-2024 13:49-0400 Diastolic blood pressure 81 mm[Hg] Katelyn Kamara DRAWBENCH OPERATOR-C Work Phone: [facility] 11-22-2024 13:49-0400 Heart rate 78 /min Katelyn Kamara DRAWBENCH OPERATOR-C Work Phone: 7(293)015-080837 [place] [address] 11-22-2024 13:49-0400 Respiratory rate 16 /min Katelyn Kamara DRAWBENCH OPERATOR-C Work Phone: 9(236)020-513037 [place] [address] 11-22-2024 13:49-0400 SaO2% (BldA) [Mass fraction] 100 % Katelyn Kamara DRAWBENCH OPERATOR-C Work Phone: 8(493)494-316137 [place] [address] 11-22-2024 13:49-0400 Systolic blood pressure 115 mm[Hg] Katelyn Kamara DRAWBENCH OPERATOR-C Work Phone: 0(188)535-707537 [place] [address] 11-22-2024 11:59-0400 Body height 177.8 cm Katelyn Kamara DRAWBENCH OPERATOR-C Work Phone: 8(132)421-535262 [place] [address] 11-22-2024 11:59-0400 Body mass index (BMI) [Ratio] 21 kg/m2 Katelyn Kamara DRAWBENCH OPERATOR-C Work Phone: 9(953)567-774562 [place] [address] 11-22-2024 11:59-0400 Body weight 66.5 kg Katelyn Kamaar DRAWBENCH OPERATOR-C Work Phone: 9(745)306-422162 [place] [address] 10-14-2024 10:26-0400 Body height 177.8 cm Katelyn Kamara DRAWBENCH OPERATOR-C Work Phone: 6(122)[phone] [place] [address] 10-14-2024 10:26-0400 Body mass index (BMI) [Ratio] 21.3 kg/m2 Katelyn Kamara DRAWBENCH OPERATOR-C Work Phone: 5(277)306-130337 [place] [address] 10-14-2024 10:26-0400 Body temperature 93 [degF] Katelyn Kamara DRAWBENCH OPERATOR-C Work Phone: 4(805)707-467237 [place] [address] 10-14-2024 10:26-0400 Body weight 67.35 kg Katelyn Kamara DRAWBENCH OPERATOR-C Work Phone: 5(279)626-016537 [place] [address] 10-14-2024 10:26-0400 Diastolic blood pressure 66 mm[Hg] Katelyn Kamara DRAWBENCH OPERATOR-C Work Phone: 7(151)601-067037 [place] [address] 10-14-2024 10:26-0400 Heart rate 96 /min Katelyn Kamara DRAWBENCH OPERATOR-C Work Phone: 1(699)270-604237 [place] [address] 10-14-2024 10:26-0400 Respiratory rate 16 /min Katelyn Kamara DRAWBENCH OPERATOR-C Work Phone: 5(281)821-106737 [place] [address] 08-18-2025 10:26-0400 SaO2% (BldA) [Mass fraction] 93 % Katelyn Asad DRAWBENCH OPERATOR-C Work Phone: [facility] 10-14-2024 10:26-0400 Systolic blood pressure 98 mm[Hg] Katelyn Asad DRAWBENCH OPERATOR-C Work Phone: [facility] 07-21-2023 00:26-0400 Heart rate 78 /min YEVGENIY TAYKA DO [facility] 07-21-2023 00:26-0400 Respiratory rate 16 /min YEVGENIY MAGGILATASHA DO [facility] 07-20-2023 22:25-0400 Blood Pressure Cuff Size YEVGENIY MAGGIKA DO [facility] 07-20-2023 22:25-0400 Blood Pressure Location YEVGENIY MAGGILATASHA DO [facility] 07-20-2023 22:25-0400 Blood Pressure Method YEVGENIY MAGGIKA DO [facility] 07-20-2023 22:25-0400 Body height 177.8 cm YEVGENIY TAYKA DO [facility] 07-20-2023 22:25-0400 Body temperature 98.42 [degF] YEVGENIY LESLIEESKA DO [facility] 07-20-2023 22:25-0400 Body weight 61.4 kg YEVGENIY NELSONESKA DO [facility] 07-20-2023 22:25-0400 Diastolic Blood Pressure Non-Invasive 68 mm[Hg] YEVGENIY LESLIEESKA DO [facility] 07-20-2023 22:25-0400 Heart rate 94 /min YEVGENIY LESLIEESKA DO [facility] 07-20-2023 22:25-0400 Reason For Taking VItal Signs YEVGENIY QUINTEROS DO [facility] 07-20-2023 22:25-0400 Respiratory rate 16 /min YEVGENIY QUINTEROS DO [facility] 07-20-2023 22:25-0400 Systolic Blood Pressure Non-Invasive 103 mm[Hg] YEVGENIY LESLIEALAN DO [facility] 07-18-2023 00:06-0400 Diastolic Blood Pressure Non-Invasive 83 mm[Hg] MARLENE GIFFORD MD [facility] 07-18-2023 00:06-0400 Heart rate 78 /min MARLENE GIFFORD MD [facility] 07-18-2023 00:06-0400 Reason For Taking VItal Signs MARLENE GIFFORD MD [facility] 07-18-2023 00:06-0400 Respiratory rate 16 /min MARLENE GIFFORD MD [facility] 07-18-2023 00:06-0400 Systolic Blood Pressure Non-Invasive 122 mm[Hg] MARLENE GIFFORD MD [facility] 07-17-2023 21:11-0400 Blood Pressure Location MARLENE GIFFORD MD [facility] 07-17-2023 21:11-0400 Blood Pressure Method MARLENE GIFFORD MD [facility] 07-17-2023 21:11-0400 Body height 177.8 cm MARLENE GIFFORD MD [facility] 07-17-2023 21:11-0400 Body temperature 99.32 [degF] MARLENE GIFFORD MD [facility] 07-17-2023 21:11-0400 Body weight 61.4 kg MARLENE GIFFORD MD [facility] 07-17-2023 21:11-0400 Diastolic Blood Pressure Non-Invasive 62 mm[Hg] MARLENE GIFFORD MD [facility] 07-17-2023 21:11-0400 Heart rate 108 /min MARLENE GIFFORD MD [facility] 07-17-2023 21:11-0400 Respiratory rate 16 /min MARLENE GIFFORD MD [facility] 07-17-2023 21:11-0400 Systolic Blood Pressure Non-Invasive 91 mm[Hg] MARLENE GIFFORD MD [facility] 06-12-2023 22:10-04[address] Blood Pressure Cuff Size DR ASHLEY MIXON MD [facility] 06-12-2023 22:10-[address] ASHLEY MIXON MD [facility] 06-12-2023 22:10-[address] ASHLEY MIXON MD [facility] 06-12-2023 22:10-0400 Diastolic Blood Pressure Non-Invasive 69 mm[Hg] DR ASHLEY MIXON MD [facility] 06-12-2023 22:10-0400 Heart rate 71 /min DR ASHLEY MIXON MD [facility] 06-12-2023 22:10-0400 Respiratory rate 18 /min DR ASHLEY MIXON MD [facility] 06-12-2023 22:10-0400 Systolic Blood Pressure Non-Invasive 99 mm[Hg] DR ASHLEY MIXON MD [facility] 06-12-2023 21:45-0400 Diastolic Blood Pressure Non-Invasive 63 mm[Hg] DR ASHLEY MIXON MD [facility] 06-12-2023 21:45-0400 Heart rate 72 /min DR ASHLEY MIXON MD [facility] 06-12-2023 21:45-0400 Respiratory rate 18 /min DR ASHLEY MIXON MD [facility] 06-12-2023 21:45-0400 Systolic Blood Pressure Non-Invasive 101 mm[Hg] DR ASHLEY MIXON MD [facility] 06-12-2023 21:30-0400 Diastolic Blood Pressure Non-Invasive 71 mm[Hg] DR ASHLEY MIXON MD [facility] 06-12-2023 21:30-0400 Heart rate 71 /min DR ASHLEY MIXON MD [facility] 06-12-2023 21:30-0400 Respiratory rate 18 /min DR ASHLEY IMXON MD [facility] 06-12-2023 21:30-0400 Systolic Blood Pressure Non-Invasive 99 mm[Hg] DR ASHLEY MIXON MD [facility] 06-12-2023 20:30-0400 Reason For Taking VItal Signs DR ASHLEY MIXON MD [facility] 06-12-2023 20:15-0400 Reason For Taking VItal Signs DR ASHLEY MIXON MD [facility] 06-12-2023 19:30-0400 Reason For Taking VItal Signs DR ASHLEY MIXON MD [facility] 06-12-2023 17:31-[address] ASHLEY MIXON MD [facility] 06-12-2023 17:31-0400 Body temperature 98.6 [degF] DR ASHLEY MIXON MD [facility] 06-12-2023 17:31-0400 Body weight 57.[address] ASHLEY MIXON MD [facility] 06-12-2023 17:31-0400 Heart rate 124 /min DR ASHLEY MIXON MD [facility] 05-31-2023 14:56-0400 Diastolic Blood Pressure Non-Invasive 78 mm[Hg] FELI METZ MD [facility] 05-31-2023 14:56-0400 Heart rate 84 /min FELI METZ MD [facility] 05-31-2023 14:56-0400 Respiratory rate 15 /min FELI METZ MD [facility] 05-31-2023 14:56-0400 Systolic Blood Pressure Non-Invasive 121 mm[Hg] FELI METZ MD [facility] 05-31-2023 14:26-0400 Diastolic Blood Pressure Non-Invasive 74 mm[Hg] FELI METZ MD [facility] 05-31-2023 14:26-0400 Heart rate 73 /min FELI METZ MD [facility] 05-31-2023 14:26-0400 Reason For Taking VItal Signs FELI METZ MD [facility] 05-31-2023 14:26-0400 Respiratory rate 19 /min FELI METZ MD [facility] 05-31-2023 14:26-0400 Systolic Blood Pressure Non-Invasive 110 mm[Hg] FELI METZ MD [facility] 05-31-2023 13:13-0400 Diastolic Blood Pressure Non-Invasive 71 mm[Hg] FELI METZ MD [facility] 05-31-2023 13:13-0400 Heart rate 75 /min FELI METZ MD [facility] 05-31-2023 13:13-0400 Respiratory rate 22 /min FELI METZ MD [facility] 05-31-2023 13:13-0400 Systolic Blood Pressure Non-Invasive 103 mm[Hg] FELI METZ MD [facility] 05-31-2023 11:00-0400 Body temperature 97.88 [degF] FELI METZ MD [facility] 05-31-2023 11:00-0400 Body weight 59.6 kg FELI METZ MD [facility] 04-18-2023 03:10-0500 Blood Pressure Location TAMIKA TORRES DO [facility] 04-18-2023 03:10-0500 Blood Pressure Method TAMIKA Serna [facility] 04-18-2023 03:10-0500 Body height 177.8 cm TAMIKA TORRES DO [facility] 04-18-2023 03:10-0500 Body temperature 98.24 [degF] TAMIKA FROMMELT DO [facility] 04-18-2023 03:10-0500 Body weight 61.4 kg TAMIKA FROMMELT DO [facility] 04-18-2023 03:10-0500 Diastolic Blood Pressure Non-Invasive 69 mm[Hg] TAMIKA FROMMELT DO [facility] 04-18-2023 03:10-0500 Heart rate 109 /min TAMIKA FROMMELT DO [facility] 04-18-2023 03:10-0500 Respiratory rate 16 /min TAMIKA FROMMELT DO [facility] 04-18-2023 03:10-0500 Systolic Blood Pressure Non-Invasive 101 mm[Hg] TAMIKA FROMMELT DO [facility] 04-17-2023 23:54-0500 Heart rate 103 /min TAMIKA FROMMELT DO [facility] 04-17-2023 23:37-0500 Blood Pressure Location TAMIKA FROMMELT DO [facility] 04-17-2023 23:37-0500 Blood Pressure Method TAMIKA FROMMELT D O [facility] 04-17-2023 23:37-0500 Body height 177.8 cm TAMIKA FROMMELT DO [facility] 04-17-2023 23:37-0500 Body temperature 96.8 [degF] TAMIKA FROMMELT DO [facility] 04-17-2023 23:37-0500 Body weight 61.4 kg TAMIKA TORRES DO [facility] 04-17-2023 23:37-0500 Diastolic Blood Pressure Non-Invasive 88 mm[Hg] TAMIKA TORRES DO [facility] 04-17-2023 23:37-0500 Respiratory rate 16 /min [facility]A [facility] 04-17-2023 23:37-0500 Systolic Blood Pressure Non-Invasive 115 mm[Hg] [facility] 04-12-2023 18:54-0500 Body temperature 98.06 [degF] KATELYN SAAB MD [facility] 04-12-2023 18:54-0500 Body weight 61.4 kg KATELYN SAAB MD [facility] 04-12-2023 18:54-0500 Diastolic Blood Pressure Non-Invasive 65 mm[Hg] KATELYN SAAB MD [facility] 04-12-2023 18:54-0500 Heart rate 104 /min KATELYN SAAB MD [facility] 04-12-2023 18:54-0500 Respiratory rate 16 /min KATELYN SAAB MD [facility] 04-12-2023 18:54-0500 Systolic Blood Pressure Non-Invasive 110 mm[Hg] KATELYN SAAB MD [facility] 04-12-2023 05:06-0500 Blood Pressure Location KATELYN SAAB MD [facility] 04-12-2023 05:06-0500 Blood Pressure Method KATELYN SAAB MD [facility] 04-12-2023 05:06-0500 Body height 177.8 cm KATELYN SAAB MD [facility] 04-12-2023 05:06-0500 Body temperature 96.98 [degF] KATELYN SAAB MD [facility] 04-12-2023 05:06-0500 Body weight 56.8 kg KATELYN SAAB MD [facility] 04-12-2023 05:06-0500 Diastolic Blood Pressure Non-Invasive 69 mm[Hg] KATELYN SAAB MD [facility] 04-12-2023 05:06-0500 Heart rate 112 /min KATELYN SAAB MD [facility] 04-12-2023 05:06-0500 Respiratory rate 16 /min KATELYN SAAB MD [facility] 04-12-2023 05:06-0500 Systolic Blood Pressure Non-Invasive 99 mm[Hg] KATELYN SAAB MD [facility] 04-09-2023 03:26-0500 Body temperature 98.42 [degF] JENNIFER FRANKS MD [facility] 04-09-2023 03:26-0500 Diastolic Blood Pressure Non-Invasive 83 mm[Hg] JENNIFER FRANKS MD [facility] 04-09-2023 03:26-0500 Heart rate 108 /min JENNIFER FRANKS MD [facility] 04-09-2023 03:26-0500 Respiratory rate 18 /min JENNIFER FRANKS MD [facility] 04-09-2023 03:26-0500 Systolic Blood Pressure Non-Invasive 117 mm[Hg] JENNIFER FRANKS MD [facility] 02-22-2023 16:15-0500 Body temperature 98.24 [degF] JENNIFER FRANKS MD [facility] 02-22-2023 16:15-0500 Diastolic Blood Pressure Non-Invasive 62 mm[Hg] JENNIFER FRANKS MD [facility] 02-22-2023 16:15-0500 Heart rate 68 /min JENNIFER FRANKS MD [facility] 02-22-2023 16:15-0500 Respiratory rate 16 /min JENNIFER FRANKS MD [facility] 02-22-2023 16:15-0500 Systolic Blood Pressure Non-Invasive 124 mm[Hg] JENNIFER FRANKS MD [facility] 02-22-2023 14:06-0500 Body temperature 98.06 [degF] JENNIFER FRANKS MD [facility] 02-22-2023 14:06-0500 Diastolic Blood Pressure Non-Invasive 84 mm[Hg] JENNIFER FRANKS MD [facility] 02-22-2023 14:06-0500 Heart rate 97 /min JENNIFER FRANKS MD [facility] 02-22-2023 14:06-0500 Respiratory rate 18 /min JENNIFER FRANKS MD [facility] 02-22-2023 14:06-0500 Systolic Blood Pressure Non-Invasive 118 mm[Hg] JENNIFER FRANKS MD [facility] 02-10-2023 20:55-0500 Diastolic Blood Pressure Non-Invasive 74 mm[Hg] TAMIKA FROMMELT DO [facility] 02-10-2023 20:55-0500 Heart rate 100 /min TAMIKA FROMMELT DO [facility] 02-10-2023 20:55-0500 Respiratory rate 16 /min TAMIKA FROMMELT DO [facility] 02-10-2023 20:55-0500 Systolic Blood Pressure Non-Invasive 120 mm[Hg] TAMIKA FROMMELT DO [facility] 02-10-2023 12:50-0500 Body height 177.8 cm TAMIKA FROMMELT DO [facility] 02-10-2023 12:50-0500 Body temperature 97.88 [degF] TAMIKA FROMMELT DO [facility] 02-10-2023 12:50-0500 Body weight 59.1 kg TAMIKA FROMMELT DO [facility] 02-10-2023 12:50-0500 Diastolic Blood Pressure Non-Invasive 83 mm[Hg] TAMIKA FROMMELT DO [facility] 02-10-2023 12:50-0500 Heart rate 100 /min TAMIKA FROMMELT DO [facility] 02-10-2023 12:50-0500 Respiratory rate 16 /min TAMIKA FROMMELT DO [facility] 02-10-2023 12:50-0500 Systolic Blood Pressure Non-Invasive 129 mm[Hg] TAMIKA TORRES [facility] 08-23-2022 07:11-0400 Body temperature 98.24 [degF] MARLENE GIFFORD MD [facility] 08-23-2022 07:11-0400 Diastolic Blood Pressure Non-Invasive 76 1 MARLENE GIFFORD MD [facility] 08-23-2022 07:11-0400 Heart rate 80 /min MARLENE GIFFORD MD [facility] 08-23-2022 07:11-0400 Respiratory rate 18 /min MARLENE GIFFORD MD [facility] 08-23-2022 07:11-0400 Systolic Blood Pressure Non-Invasive 114 1 MARLENE GIFFORD MD [facility] 08-23-2022 03:15-0400 Heart rate 97 /min MARLENE GIFFORD MD [facility] 08-23-2022 01:15-0400 Blood Pressure Cuff Size MARLENE GIFFORD MD [facility] 08-23-2022 01:15-0400 Blood Pressure Location MARLENE GIFFORD MD [facility] 08-23-2022 01:15-0400 Blood Pressure Method MARLENE GIFFORD MD [facility] 08-23-2022 01:15-0400 Body height 177.8 cm MARLENE GIFFORD MD [facility] 08-23-2022 01:15-0400 Body temperature 98.42 [degF] MARLENE GIFFORD MD [facility] 08-23-2022 01:15-0400 Body weight 59.1 kg MARLENE GIFFORD MD [facility] 08-23-2022 01:15-0400 Diastolic Blood Pressure Non-Invasive 86 1 MARLENE GIFFORD MD [facility] 08-23-2022 01:15-0400 Heart rate 118 /min MARLENE GIFFORD MD [facility] 08-23-2022 01:15-0400 Reason For Taking VItal Signs MARLENE GIFFORD MD [facility] 08-23-2022 01:15-0400 Respiratory rate 18 /min MARLENE GIFFORD MD [facility] 08-23-2022 01:15-0400 Systolic Blood Pressure Non-Invasive 128 1 MARLENE GIFFORD MD [facility] Encounters Encounter Date Encounter Type Care Provider Facility Start: 12-18-2024 End: 12-18-2024 Emergency department patient visit Marcos Walker Facility:[facility] Start: 11-22-2024 Non-patient / Non-visit Juan Cazares DO -[facility] Start: 11-22-2024 End: 11-22-2024 Admission to same day surgery center Juan Cazares DO -Endoscopy Work Phone: Start: 11-22-2024 End: 11-22-2024 ambulatory Katelyn Kamara DRAWBENCH OPERATOR-C Work Phone: -Endoscopy Start: 10-14-2024 End: 10-14-2024 Patient encounter procedure Stephanie SIMMONS -[facility] Work Phone: Start: 10-14-2024 End: 10-14-2024 ambulatory Katelyn Kamara NP-C Work Phone: -[facility] Start: 10-14-2024 End: 10-14-2024 ambulatory Stephanie Jenkins Facility:[facility] Start: 02-02-2024 ambulatory No Primary Car e Physician Facility:[facility] Start: 02-01-2024 ambulatory No Primary Car e Physician Facility:[facility] Start: 02-01-2024 End: 02-04-2024 Evaluation and management of inpatient No Primary Care Physician Facility:[facility] Start: 12-22-2023 End: 12-26-[address] TECH-PATTERN STORAGE CLERK [facility] Start: 12-22-2023 End: 12-26-2023 Outreach Lab CHRISTIAN INGRID CT TECH-PATTERN STORAGE CLERK [facility] Start: 07-21-2023 End: 07-21-2023 Emergency department patient visit YEVGENIY QUINTEROS DO Facility:[facility] Start: 07-20-2023 End: 07-21-2023 Emergency department patient visit YEVGENIY QUINTEROS DO [facility] Start: 07-17-2023 End: 07-18-2023 Emergency department patient visit MARLENE GIFFORD MD Facility:[facility] Start: 07-17-2023 End: 07-18-2023 Emergency department patient visit MARLENE GIFFORD MD [facility] Start: 06-12-2023 End: 06-13-2023 Emergency department patient visit DR CARIDAD SALDANA MD Facility:[facility] Start: 06-12-2023 End: 06-12-2023 Emergency department patient visit DR ASHLEY MIXON MD [facility] Start: 05-31-2023 End: 05-31-2023 Emergency department patient visit FELI METZ MD Facility:[facility] Start: 05-31-2023 End: 05-31-2023 Emergency department patient visit FELI METZ MD [facility] Start: 05-10-2023 End: 05-11-2023 ambulatory RICK Connie WOOD BINH CT TECH-PATTERN STORAGE CLERK Facility:[facility] Start: 04-18-2023 End: 04-18-2023 Emergency department patient visit TAMIKA TORRES DO Facility:[facility] Start: 04-18-2023 End: 04-18-2023 Emergency department [facility] Start: 04-18-2023 End: 04-18-2023 Emergency department patient visit TAMIKA TORRES DO Facility:[facility] Start: 04-17-2023 End: 04-17-2023 Emergency department patient visit T[facility]IKA [facility] Start: 04-12-2023 End: 04-12-2023 Emergency department patient visit CHRISTIAN QUINTERO [facility] Facility:B Start: 04-12-2023 End: 04-12-2023 Emergency department patient visit KATELYN SAAB MD [facility] Start: 04-12-2023 End: 04-12-2023 Emergency department patient visit KATELYN SAAB MD Facility:[facility] Start: 04-12-2023 End: 04-12-2023 Emergency department patient visit KATELYN SAAB MD [facility] Start: 04-09-2023 End: 04-09-2023 Emergency department patient visit JENNIFER FRANKS MD Facility:[facility] Start: 04-09-2023 End: 04-09-2023 Emergency department patient visit JENNIFER FRANKS MD [facility] Start: 02-24-2023 End: 03-09-2023 Evaluation and management of inpatient R[facility] Start: 02-23-2023 End: 02-24-2023 Emergency department [facility] Start: 02-22-2023 End: 02-22-2023 Emergency department patient visit JENNIFER FRANKS MD Facility:[facility] Start: 02-22-2023 End: 02-22-2023 Emergency department patient visit JENNIFER FRANKS MD [facility] Start: 02-10-2023 End: 02-11-2023 Emergency department patient visit JENNIFER FRANKS MD Facility:[facility] Start: 02-10-2023 End: 02-10-2023 Emergency department patient visit TAMIKA TORRES DO [facility] Start: 09-23-2022 End: 09-23-2022 Emergency department patient visit YEVGENIY LESLIEALAN Facility:[facility] Start: 09-22-2022 End: 09-22-2022 Emergency department patient visit JENNIFER FRANKS MD Facility:[facility] Start: 09-16-2022 End: 09-17-2022 Emergency department [facility] Start: 08-23-2022 End: 08-23-2022 Emergency department patient visit MARLENE GIFFORD MD Facility:[facility] Start: 08-23-2022 End: 08-23-2022 Emergency department patient visit MARLENE GIFFORD MD [facility] Procedures Date Procedure Procedure Detail Performing Clinician Start: 11-22-2024 Colonoscopy Katelyn leon DRAWBENCH OPERATOR-C Work Phone: Start: 10-14-2024 Total iron binding capacity measurement Katelyn Kamara DRAWBENCH OPERATOR-C Work Phone: Start: 02-27-1997 Arthroscopy of ankle RC GIFFORD MD Comment on above: L Cholecystectomy MARLENE Salter Face structure (body structure) MARLENE GIFFORD MD Comment on above: plates H/O: surgery History of surge ry on lower extremity Katelyn Kamara DRAWBENCH OPERATOR-C Work Phone: Comment on above: Left leg History of cholecystectomy Hx of cholecystectomy Katelyn Kamara DRAWBENCH OPERATOR-C Work Phone: Plan of Treatment Date Care Activity Detail Author Start: 12-18-2024 [facility] Start: 11-22-2024 Colonoscopy w/biopsy single/multiple COLONOSCOPY AND BIOPSY [facility] Start: 11-22-2024 Endoscopy upper smal l intestine w/biopsy SMALL BOWEL ENDOSCOPY/BIOPSY [facility] Start: 11-22-2024 Patient discharge [facility] CBC W Auto Different ial panel - Blood [facility] Iron and Iron bindin g capacity panel - Serum or Plasma [facility] Patient Education ED Fainting, V agal Reaction [facility] Work Phone: Vitamin B12 measurement [facility] Immunizations Immunization Date Immunization Notes Care Provider Fa keegan 02-02-2024 influenza, high dose seasonal, preservative-free Katelyn Kamara DRAWBENCH OPERATOR-C Work Phone: [facility] 02-01-2024 tetanus toxoid, redu maryanne diphtheria toxoid, and acellular pertussis vaccine, adsorbed Katelyn Kamara DRAWBENCH OPERATOR-C Work Phone: [facility] Payers Date Payer Category Payer Unknown [id number] 2024 Self-pay 2023 Unknown [id number] 2018 Unknown [id number] 1960 Unknown [id number] 2.16.8 [id number] 1960 Unknown [id number] 2.16.8 40.1.362254.3.579.2.627 1958 Unknown [id number] 2.16.8 40.1.394713.3.579.2.627 1958 Unknown [id number] 2.16.8 40.1.471487.3.579.2.627 1958 Unknown [id number] 2.16.8 40.1.205864.3.579.2.627 1958 Unknown [id number] 2.16.8 40.1.146094.3.579.2.627 1958 Unknown [id number] 2.16.8 40.1.280498.3.579.2.627 1958 Unknown [id number] 2.16.8 40.1.396956.3.579.2.627 1958 Unknown [id number] 2.16.8 40.1.880899.3.579.2.627 1958 Unknown [id number] 2.16.8 40.1.711709.3.579.2.627 1958 Unknown [id number] 2.16.8 40.1.599006.3.579.2.7 1958 Unknown [id number] 2.16.8 40.1.376494.3.579.2.627 1958 Unknown [id number] 2.16.8 40.1.036798.3.579.2.627 1958 Unknown [id number] 2.16.8 40.1.922473.3.579.2.627 1958 Unknown [id number] 2.16.8 40.1.626296.3.579.2.627 1958 Unknown [id number] 2.16.8 40.1.335440.3.579.2.627 1958 Unknown [id number] 2.16.8 40.1.570334.3.579.2.627 1958 Unknown [id number] 2.16.8 40.1.861736.3.579.2.627 1958 Unknown [id number] 2.16.8 40.1.892059.3.579.2.179 Unknown [id number] 2.16.8 40.1.308459.3.579.2.462 Unknown [id number] 2.16.8 40.1.396840.3.579.2.462 Unknown [id number] 2.16.8 40.1.759952.3.579.2.462 Unknown [id number] 2.16.8 40.1.344486.3.579.2.462 Unknown [id number] 2.16.8 40.1.444906.3.579.2.462 Unknown [id number] 2.16.8 40.1.668389.3.579.2.462 Unknown [id number] 2.16.8 40.1.841022.3.579.2.462 Unknown [id number] 2.16.8 40.1.342708.3.579.2.462 Unknown [id number] 2.16.8 40.1.076327.3.579.2.462 Unknown [id number] 2.16.8 40.1.330546.3.579.2.462 Unknown [id number] 2.16.8 40.1.512306.3.579.2.462 Unknown [id number] 2.16.8 40.1.086447.3.579.2.462 Social History Date Type Detail Facility Start: 09-07-2018 End: 12-18-2024 Tobacco smoking status Never smoked tobacco (finding) [facility] Start: 1960 Sex Assigned At Male [facility] Sex Male [facility] Goals Date Patient Goal Desired Activity /State Functional Status Date Assessment Result Facility 07-21-2023 Functional Status Assistive Device None A [facility] 07-20-2023 Functional Status Awake, Resting [facility] 07-18-2023 Functional Status Independent [facility] 06-12-2023 Functional Status ID band on, Call device within reach, Bed in low position, Wheels locked, Bedside Cart Locked, Safety level maintained [facility] 05-31-2023 Functional Status Independent [facility] 05-31-2023 Functional Status Ambulation in Villarreal [facility] 04-18-2023 Functional Status ID band on, Call device within reach, Bed in low position, Wheels locked, personal items within reach, Bedside Cart Locked [facility] 04-17-2023 Functional Status ID band on, Call device within reach, Bed in low position, Wheels locked, personal items within reach, Bedside Cart Locked [facility] 04-12-2023 Functional Status Standard Safet y ID band on, Call device within reach, Bed in low position, Wheels locked, Upper/Half-Length side-rails up, Bedside Cart Locked, Safety level maintained [facility] 04-12-2023 Functional Status ID band on, Call device within reach, Bed in low position, Wheels locked, personal items within reach, Bedside Cart Locked [facility] 04-09-2023 Functional Status Activity Liz tangordy Independent [facility] 04-09-2023 Functional Status Room located n ear nursing station, Door open, supervised while toileting, Room check performed, Security notified, Security present, Metal Detection Wand Used [facility] 02-22-2023 Functional Status Assistive Device None A [facility] 02-22-2023 Functional Status Standard Safet y ID band on, Call device within reach, Bed in low position, Wheels locked, Upper/Half-Length side-rails up, Phone within reach, personal items within reach, Bedside Cart Locked, Safety level maintained, Non-Slip footwear, Precautions maintained [facility] 02-10-2023 Functional Status Security present 1 [facility] 02-10-2023 Functional Status [facility] 02-10-2023 Functional Status Sleeping quiet ly with easy respirations [facility] 02-10-2023 Functional Status [facility] 08-23-2022 Functional Status Identified as high risk, Room located near nursing station, Door open, Non-Slip footwear, toileting offered, toileting refused, Room check performed [facility] 08-23-2022 Functional Status [facility] 08-23-2022 Functional Status Ambulating in villarreal, Ambulating in room, Awake [facility] Mental Status Date Assessment Result Facility 12-18-2024 Cognitive function Level Of Consciousness Awake [facility] Work Phone: 11-22-2024 Cognitive function Level Of Consciousness Sedated [facility] Work Phone: 11-22-2024 Cognitive function Voice/Name [facility] Work Phone: 07-21-2023 Mental Status Orientation Oriented x 4 [facility] 07-20-2023 Mental Status [facility] 07-18-2023 Mental Status Orientation Oriented x 4 [facility] 06-12-2023 Mental Status Orientation Oriented x 4 [facility] 06-12-2023 Mental Status [facility] 05-31-2023 Mental Status Orientation Oriented x 4 [facility] 05-31-2023 [facility]-18-[facility]23 Mental Status Oriented x 4 [facility] 04-17-2023 Mental Status Orientation Oriented x 4 [facility] 04-12-2023 Mental Status Orientation Oriented x 4 [facility] 04-12-2023 Mental Status Oriented x 4 [facility] 04-09-2023 Mental Status Orientation Oriented x 4 [facility] 04-09-2023 [facility] 02-22-2023 Mental Status Orientation Oriented x 4 [facility] 02-22-2023 [facility] 02-10-2023 Mental Status Orientation Oriented x 4 [facility] 08-23-2022 Mental Status Orientation Oriented x 4 [facility] 08-23-2022 Mental Status [facility] Clinical Notes 08-23-2022 to 12-18-2024 Note Date & Type Note Facility 12-18-2024 Discharge summary [facility] 11-22-2024 Procedure note [facility] 11-22-2024 Procedure note [facility] 11-22-2024 Procedure note [facility] 11-22-2024 Procedure note [facility] 11-22-2024 Consult note Note Date/Time November 22, 2024 12:11pm [facility] Medical Records Department [address] [place] [address] Pre-Anesthesia Evaluation 11/22/24 1207 MR#: [id number] Acct: [id number] Name: JAYCOB CRYSTAL Rep #:[id number] : 1960 63 From: Norris Salter PCP: ALEKSANDER MeierC [place] [facility] [place] Race: C Location: [place] [address] ASA Classification* ASA Classification ASA Classification: 3 Assessment & Plan Anesthesia* Anesthesia Assessment Anesthesia Assessment: Discussed sedation and/or anesthesia options, risks, benefits, and alternatives with patient/parents/legal guardian/POA. Questions invited. The patient/parents/legal guardian/POA seems to understand and agrees to proceedwith anesthesia plan. Reviewed the physical assessment, medical history, allergy history and patient home medications list prior to surgery/procedure/anesthetic and documented any changes. Performed airway and anesthesia risk assessments. Anesthesia Type Anesthesia Type: MAC History Source History Obtained from:: Patient and Chart Anesthesia Focused Assessment* Temperature: 97.7 F Pulse Rate: 105 Blood Pressure: 121/70 Respiratory Rate: 18 Pulse Ox: 100 Oxygen Delivery Method: Room Air Airway Assessment Mouth opens: >3 cm Mallampati Score: II Teeth Condition: Missing (Very poor dentition. Only a few rotten roots teeth present) Neck Range of motion (ROM): Full ROM Labs Anesthesia Preop lab: CBC WBC, (4.4-11.0) 5.5 K/mm3 10/14/24, 10:57 RBC, (4.6-6.2) 4.06 M/mm3 L 10/14/24, 10:57 Hgb, (13.0-16.5) 13.3 g/dL 10/14/24, 10:57 Hct, (40-54) 39.0 % L 10/14/24, 10:57 Plt Count, (150-450) 151 K/mm3 10/14/24, 10:57 CHEMISTRY Potassium, (3.5-5.1) 4.0 mmol/L 02/03/24, 06:10 Sodium, (136-145) 141 mmol/L 02/03/24, 06:10 BUN, (7-18) 14 mg/dL 02/03/24, 06:10 Creatinine, (0.70-1.30) 1.13 mg/dL 02/03/24, 06:10 Glucose, (74-106) 91 mg/dL 02/03/24, 06:10 TSH, (0.358-3.740) 1.080 uIU/mL 02/02/24, 04:40 COAG Pre-Assessment Diagnosis/Proposed Procedure Planned Operative Procedure(s): EGD/CSCOPE Anesthesia History Anesthesia History - needle control cheniller: Anesthesia History - needle control cheniller Hx Hospitalization Yes: 01/2024 FAINTED DUE TO 11/08/24 12:24 DEHYDRATION Any Problems With Anesthesia No 11/08/24 12:24 Cholinesterase deficiency No 11/08/24 12:24 You/Your Family Experience No 11/08/24 12:24 fever (hyperthermia) with Relationship Recent Exposure to Contagious No 11/22/24 11:59 Disease Does patient have nerve No 11/08/24 12:24 stimulator Patient instructed to have device shut off --Does patient have Pacemaker No 11/22/24 11:59 or ICD? When Was Last Pacemaker Check QUESTION #4 FULL TEXT: You/Your Family Experience fever (hyperthermia) with Anesthesia Last Oral Intake Last Oral intake: Last Oral Intake NPO since 10:30 11/22/24 11:59 Meds taken in AM with sips of Yes 11/22/24 11:59 water? Meds patient instructed to see chart 11/22/24 11:59 take am of surgery PONV PONV - needle control cheniller: PONV - needle control cheniller Female No 11/08/24 12:24 HX of Motion Sickness No 11/08/24 12:24 HX of N/V After Surgery No 11/08/24 12:24 Non-Smoker Yes 11/08/24 12:24 Duration of Surgery greater No 11/08/24 12:24 than 60 minutes Number of Risk Factors 1 11/08/24 12:24 PONV Score Low Risk 11/08/24 12:24 Height & Weight Height & Weight: Anesthesia: Height & Weight Height 5 ft 10 in 11/22/24 11:59 Weight: 66.5 kg 11/22/24 11:59 Body Mass Index (BMI) 21.0 11/22/24 11:59 Respiratory Assessment Respiratory Assessment - needle control cheniller: Respiratory Tract Infection Hx - needle control cheniller Hx Respiratory Tract Infection No 11/08/24 12:24 STOP Sleep Apnea STOP Sleep Apnea - needle control cheniller: STOP Sleep Apnea - needle control cheniller Hx Hypertension No 11/08/24 12:24 Hx Sleep Apnea No 11/08/24 12:24 CPAP BIPAP Do you snore loudly (louder No 11/08/24 12:24 than talking or can be heard Do you often feel tired/ No 11/08/24 12:24 fatigued/ sleepy during daytime? Has anyone observed you stop No 11/08/24 12:24 breathing during sleep? STOP Results Negative 11/08/24 12:24 QUESTION #5 FULL TEXT : Do you snore loudly (louder than talking or can be heard through closed doors)? Tobacco Use History Tobacco Use History - needle control cheniller: Tobacco Use History - needle control cheniller Tobacco Use Smoking Status Never smoker 11/08/24 12:24 Hx Tobacco Use No 11/08/24 12:24 Years Smoking Packs Smoked per Day Smoking Cessation Date was within the last 15 years Hx Smoking Cessation Date Hx Smoking Cessation Counseling Hematologic Medial History Hematologic Hx - needle control cheniller: Hematologic Medical Hx - dog hair clipper Hx of Blood Transfusion No 11/08/24 12:24 Hx of Transfusion in last 3 No 11/08/24 12:24 Months Date of Last Transfusion (if within last 3 months) Ever experience any problems No 11/08/24 12:24 with transfusion(s)? Specify any problems Hx of Preganancy in last 3 N/A 11/08/24 12:24 Months Nurse Filling Out Transfusion DSCHRIBER 11/08/24 12:24 & Questions: Date: 11/08/24 11/08/24 12:24 Time: 12:27 11/08/24 12:24 Patient unable to answer at this time (ie. confused, unrespo /Reproduction History /Reproductive History - needle control cheniller: /Reproductive Hx- needle control cheniller Hx Now No 11/08/24 12:24 Gestational Age (in weeks): EDC: Hx Hx Para Hx Section SAB No 11/08/24 12:24 Active Medications Active Medications: Current Medications Generic Name Dose Route Start Last Admin Trade Name Freq PRN Reason Stop Dose Admin Lactated Ringer's 1,000 mls @ 15 mls/hr 11/22/24 11:45 11/22/24 12:04 IV 15 mls/hr .Q48H MARGIE Administration PFSH Medical History Loss of consciousness History of echocardiogram Cardiology follow-up encounter Lives in assisted living facility Bladder disease Autism Anemia Suicide attempt Acute insomnia GERD (gastroesophageal reflux disease) Anxiety Depression Home Medications ?Medication ?Instructions ?Recorded ?Last Taken ?Type aripiprazole 5 mg tablet 7.5 mg PO DAILY [facility] 02/01/24 11/22/24 History bupropion HCl 150 mg 24 hr tablet, 150 mg PO DAILY [facility] 02/01/24 11/22/24 History extended release ibuprofen 200 mg tablet (Advil) 400 mg PO Q6H PRN pain 02/01/24 Unknown History meloxicam 7.5 mg tablet 7.5 mg PO DAILY PRN pain 07/2011/22/24 History pantoprazole 40 mg tablet,delayed 40 mg PO DAILY reflu x 02/01/24 11/22/24 History release mirtazapine 7.5 mg tablet 7.5 mg PO QHS 10/14/2411/21 History ondansetron 4 mg disintegrating 4 mg PO Q4H PRN nausea and vomiting 10/14/24 Unknown History tablet solifenacin 10 mg tablet 10 mg PO QDAY 10/14/2411/22 History tamsulosin 0.4 mg capsule 0.4 mg PO QHS 10/14/2411/21 History acetaminophen 325 mg tablet (Pain 650 mg PO Q6H PRN pa in 11/08/24 Unknown History Relief (acetaminophen)) Allergy/AdvReac Type Severity Reaction Status Date / Time No Known Allergies Allergy Verified 11/22/24 11:54 Surgical History History of facial surgery History of surgery on lower extremity Hx of cholecystectomy Social History housing: apartment current occupational status: unemployed Smoking Status: Never smoker Review of Systems (Anesthesia) ROS Narrative System reviewed and no additional complaints, except as documented. 11/22/24 1211 <Electronically signed by Norris Franks MD> Date _ Norris Franks MD Cosigner Signature: Date CC: ~ Signed [facility] Work Phone: 1(351) 890-931409-26-2025 History and physical note Author Juan Friend [facility] Note Date/Time November 22, 2024 11:56am [facility] Medical Records Department [address] [place] [address] History & Physical Exam 11/22/24 1153 MR#: [id number] Acct: [id number] Name: ANKITROSALBATRISH GALLEGOSDesirae PITTS Rep #:[id number] : 1960 63 From: Juan Cazares DO PCP: IRIS Meier Status: [facility] Location: [place] [address] HPI - General General Date of Admission: 11/22/24 Date of Service: 11/22/24 Chief Complaint: Anemia and screening colonoscopy HPI Narrative JAYCOB ANKITALLEN, is a 63 M who presents for an egd and colonosocpy Details: - never had a colonoscopy or EGD - taking pantoprazole and this helps - he lives alone - no longer drives - denies any heart or lung disease - denies any kidney disease - never been told he is a difficult intubation - Family history is significant for father with colon CA at 79y/o. - resides in assisted living The patient is a 63-year-old male presenting with a need for colonoscopy and endoscopy evaluation due to a family history of colon cancer and long-term management of reflux esophagitis. The patient reports that he has never had a colonoscopy before. There is a significant family history as the patient's father of colon cancer at the age of 79. The patient denies any personal history of colon polyps, change in bowel habits, blood in stools, or abdominal pain. He also denies any gastrointestinal symptoms such as heartburn, indigestion, nausea, or vomiting. The patient has a history of reflux, which has been managed with pantoprazole 40mg daily, effectively controlling his symptoms. He denies any difficulty swallowing or history of esophageal or stomach cancer in his family. The patientalso has a surgical history that includes cholecystectomy due to gallstones and facial reconstruction surgery following a suicide attempt, involving repair withseven plates. Additionally, the patient suffered a significant fracture to the left leg that required surgical intervention to ensure proper healing. He lives alone in an assisted living facility and has been receiving care from anurse practitioner. The patient denies any alcohol use and has a non-smoking history. He does not drive any longer. Regarding his medical history, there is no history of heart, lung, kidney disease, or unexpected weight loss. The recentblood work indicated mild anemia, which was never previously identified, and thepatient denies any symptoms such as chest pain, shortness of breath, black, or tarry stools. [facility] Medical History Loss of consciousness History of echocardiogram Cardiology follow-up encounter Lives in assisted living facility Bladder disease Autism Anemia Suicide attempt Acute insomnia GERD (gastroesophageal reflux disease) Anxiety Depression Home Medications ?Medication ?Instructions ?Recorded ?Last Taken ?Type aripiprazole 5 mg tablet 7.5 mg PO DAILY [facility] 02/01/24 Unknown History bupropion HCl 150 mg 24 hr tablet, 150 mg PO DAILY [facility] 02/01/24 Unknown History extended release ibuprofen 200 mg tablet (Advil) 400 mg PO Q6H PRN pain 02/01/24 Unknown History meloxicam 7.5 mg tablet 7.5 mg PO DAILY PRN pain 07/20 Unknown History pantoprazole 40 mg tablet,delayed 40 mg PO DAILY reflu x 02/01/24 Unknown History release mirtazapine 7.5 mg tablet 7.5 mg PO QHS 10/14/24 Unkno wn History ondansetron 4 mg disintegrating 4 mg PO Q4H PRN nausea and vomiting 10/14/24 Unknown History tablet solifenacin 10 mg tablet 10 mg PO QDAY 10/14/24 Unkno wn History tamsulosin 0.4 mg capsule 0.4 mg PO QHS 10/14/24 Unkno wn History acetaminophen 325 mg tablet (Pain 650 mg PO Q6H PRN pa in 11/08/24 Unknown History Relief (acetaminophen)) Allergy/AdvReac Type Severity Reaction Status Date / Time No Known Allergies Allergy Verified 11/22/24 11:54 Surgical History History of facial surgery History of surgery on lower extremity Hx of cholecystectomy Social History housing: apartment current occupational status: unemployed Smoking Status: Never smoker ROS Constitutional Constitutional: Denies fatigue, fever(s), poor appetite, weight gain or weight loss Gastrointestinal Gastrointestinal: Denies belching, bloating, change in bowel habits, change in stool character, chewing difficulty, coffee ground emesis, constipation, cramping, diarrhea, dyspepsia, dysphagia, early satiety, excessive flatus, fecalincontinence, heartburn, hematemesis, hematochezia, hemorrhoids, loose stools, melena, nausea, odynophagia, rectal bleeding, tenesmus, vomiting or weight changes Physical Exam Const alert, oriented x3, no apparent distress and healthy appearing General Appearance: cooperative GI normal to inspection, nondistended, normoactive bowel sounds, soft to palpation,non-tender and non-distended Percussion: normal to percussion Rectal Exam: deferred Assessment & Plan Assessment/Plan (1) Screen for colon cancer: (2) Anemia: PLAN: Assessment and Plan Assessment and Plan (1) Anemia: Status: Acute (2) Family history of colon cancer in father: Status: Acute (3) Screen for colon cancer: Status: Acute Orders: Orders CBC W/Diff, Automated Today D64.9 - Anemia, unspecified Iron+Iron Binding Capacity Today D64.9 - Anemia, unspecified Vitamin B12 Today D64.9 - Anemia, unspecified Medications: New peg 3350-sod sulf,[id number] 178.7-7.3-0.5 gram (Suflave) Take as directed for split dose bowel prep 2 mL 0RF Plan 63-year-old male with a history of reflux presenting with the need for colonoscopy and endoscopy evaluation. The patient is scheduled for these procedures due to a significant family history of colon cancer and long-term treatment for reflux. A mild anemia was noted in his recent blood work, but he denies any symptoms consistent with gastrointestinal bleeding such as melena or hematochezia. The patient?s reflux has been well-controlled with pantoprazole, aProton Pump Inhibitor (PPI), and there are no new symptoms suggestive of esophageal complications. Based on the history, further evaluation with endoscopic procedures is warranted to screen for any potential gastrointestinal pathologies, given the family history and the necessity to rule out malignanciesor other complications. Patient Instructions: Labs today Colon & EGD - Suflave 11/22/24 1156 <Electronically signed by Juan Cazares DO> Cosigner Signature (if applicable): CC: IRIS Kamara; Juan Cazares DO~ Signed [facility] Work Phone: 1(876) 864-329709-26-[address] [facility] Medical Records Department [address] [place] [address] Anesthesia Postop Eval I 11/22/24 1305 MR#: [id number] Acct: [id number] Name: JAYCOB CRYSTAL Rep #:[id number] : 1960 63 From: Sheila Galeana CRNA PCP: IRIS Meier [place] [facility] [place] Race[place] C Location: [place] [address] Anesthesia: Postop Eval I Current Vital Signs Temperature: 97 F Pulse Rate: 77 Blood Pressure: 96/68 Respiratory Rate: 14 Pulse Ox: 98 Oxygen Delivery Method: Room Air Assessment Airway patent: Yes Spontaneous unlabored respirations: Yes Mental status: Awake nausea: No Vomiting: No Anesthesia Complication: No Fluid Hydration Crystalloid volume administer (ml): 500 Total IV fluid infused: 500 Progress Note Anesthesia document: Postop Eval 1 completed: Yes 11/22/24 1328 NA> Date _ Sheila Canoigner Signature: Date CC: ~ Signed [facility]09-26-[address] [facility] Medical Records Department [address] [place] [address] Pre-Anesthesia Evaluation 11/22/24 1207 MR#: [id number] Acct: [id number] Name: JAYCOB CRYSTAL Rep #:[id number] : 1960 63 From: Norris Salter PCP: ALEKSANDER MeierC Status: REG [facility] Y Race: C Location: [place] [address] ASA Classification* ASA Classification ASA Classification: 3 Assessment & Plan Anesthesia* Anesthesia Assessment Anesthesia Assessment: Discussed sedation and/or anesthesia options, risks, benefits, and alternatives with patient/parents/legal guardian/POA. Questions invited. The patient/parents/legal guardian/POA seems to understand and agrees to proceedwith anesthesia plan. Reviewed the physical assessment, medical history, allergy history and patient home medications list prior to surgery/procedure/anesthetic and documented any changes. Performed airway and anesthesia risk assessments. Anesthesia Type Anesthesia Type: MAC History Source History Obtained from:: Patient and Chart Anesthesia Focused Assessment* Temperature: 97.7 F Pulse Rate: 105 Blood Pressure: 121/70 Respiratory Rate: 18 Pulse Ox: 100 Oxygen Delivery Method: Room Air Airway Assessment Mouth opens: >3 cm Mallampati Score: II Teeth Condition: Missing (Very poor dentition. Only a few rotten roots teeth present) Neck Range of motion (ROM): Full ROM Labs Anesthesia Preop lab: CBC WBC, (4.4-11.0) 5.5 K/mm3 10/14/24, 10:57 RBC, (4.6-6.2) 4.06 M/mm3 L 10/14/24, 10:57 Hgb, (13.0-16.5) 13.3 g/dL 10/14/24, 10:57 Hct, (40-54) 39.0 % L 10/14/24, 10:57 Plt Count, (150-450) 151 K/mm3 10/14/24, 10:57 CHEMISTRY Potassium, (3.5-5.1) 4.0 mmol/L 02/03/24, 06:10 Sodium, (136-145) 141 mmol/L 02/03/24, 06:10 BUN, (7-18) 14 mg/dL 02/03/24, 06:10 Creatinine, (0.70-1.30) 1.13 mg/dL 02/03/24, 06:10 Glucose, (74-106) 91 mg/dL 02/03/24, 06:10 TSH, (0.358-3.740) 1.080 uIU/mL 02/02/24, 04:40 COAG Pre-Assessment Diagnosis/Proposed Procedure Planned Operative Procedure(s): EGD/CSCOPE Anesthesia History Anesthesia History - needle control cheniller: Anesthesia History - needle control cheniller Hx Hospitalization Yes: 01/2024 FAINTED DUE TO 11/08/24 12:24 DEHYDRATION Any Problems With Anesthesia No 11/08/24 12:24 Cholinesterase deficiency No 11/08/24 12:24 You/Your Family Experience No 11/08/24 12:24 fever (hyperthermia) with Relationship Recent Exposure to Contagious No 11/22/24 11:59 Disease Does patient have nerve No 11/08/24 12:24 stimulator Patient instructed to have device shut off --Does patient have Pacemaker No 11/22/24 11:59 or ICD? When Was Last Pacemaker Check QUESTION #4 FULL TEXT: You/Your Family Experience fever (hyperthermia) with Anesthesia Last Oral Intake Last Oral intake: Last Oral Intake NPO since 10:30 11/22/24 11:59 Meds taken in AM with sips of Yes 11/22/24 11:59 water? Meds patient instructed to see chart 11/22/24 11:59 take am of surgery PONV PONV - needle control cheniller: PONV - needle control cheniller Female No 11/08/24 12:24 HX of Motion Sickness No 11/08/24 12:24 HX of N/V After Surgery No 11/08/24 12:24 Non-Smoker Yes 11/08/24 12:24 Duration of Surgery greater No 11/08/24 12:24 than 60 minutes Number of Risk Factors 1 11/08/24 12:24 PONV Score Low Risk 11/08/24 12:24 Height & Weight Height & Weight: Anesthesia: Height & Weight Height 5 ft 10 in 11/22/24 11:59 Weight: 66.5 kg 11/22/24 11:59 Body Mass Index (BMI) 21.0 11/22/24 11:59 Respiratory Assessment Respiratory Assessment - needle control cheniller: Respiratory Tract Infection Hx - needle control cheniller Hx Respiratory Tract Infection No 11/08/24 12:24 STOP Sleep Apnea STOP Sleep Apnea - needle control cheniller: STOP Sleep Apnea - needle control cheniller Hx Hypertension No 11/08/24 12:24 Hx Sleep Apnea No 11/08/24 12:24 CPAP BIPAP Do you snore loudly (louder No 11/08/24 12:24 than talking or can be heard Do you often feel tired/ No 11/08/24 12:24 fatigued/ sleepy during daytime? Has anyone observed you stop No 11/08/24 12:24 breathing during sleep? STOP Results Negative 11/08/24 12:24 QUESTION #5 FULL TEXT : Do you snore loudly (louder than talking or can be heard through closeddoors)? Tobacco Use History Tobacco Use History - needle control cheniller: Tobacco Use History - needle control cheniller Tobacco Use Smoking Status Never smoker 11/08/24 12:24 Hx Tobacco Use No 11/08/24 12:24 Years Smoking Packs Smoked per Day Smoking Cessation Date was within the last 15 years Hx Smoking Cessation Date Hx Smoking Cessation Counseling Hematologic Medial History Hematologic Hx - needle control cheniller: Hematologic Medical Hx - dog hair clipper Hx of Blood Transfusion No 11/08/24 12:24 Hx of Transfusion in last 3 No 11/08/24 12:24 Months Date of Last Transfusion (if within last 3 months) Ever experience any problems No 11/08/24 12:24 with transfusion(s)? Specify any problems Hx of Preganancy in last 3 N/A 11/08/24 12:24 Months Nurse Filling Out Transfusion DSCHRIBER 11/08/24 12:24 & Questions: Date: 11/08/24 11/08/24 12:24 Time: 12:27 11/08/24 12:24 Patient unable to answer at this time (ie. confused, unrespo /Reproduction History /Reproductive History - needle control cheniller: /Reproductive Hx- needle control cheniller Hx Now No 11/08/24 12:24 Gestational Age (in weeks): EDC: Hx Hx Para Hx Section SAB No 11/08/24 12:24 Active Medications Active Medications: Current Medications Generic Name Dose Route Start Last Admin Trade Name Freq PRN Reason Stop Dose Admin Lactated Ringer's 1,000 mls @ 15 mls/hr 11/22/24 11:45 11/22/24 12:04 IV 15 mls/hr .Q48H MARGIE Administration PFSH Medical History Loss of consciousness History of echocardiogram Cardiology follow-up encounter Lives in assisted living facility Bladder disease Autism Anemia Suicide attempt Acute insomnia GERD (gastroesophageal reflux disease) Anxiety Depression Home Medications ?Medication ?Instructions ?Recorded ?Last Taken ?Type aripiprazole 5 mg tablet 7.5 mg PO DAILY [facility] 02/01/24 11/22/24 History bupropion HCl 150 mg 24 hr tablet, 150 mg PO DAILY [facility] 02/01/24 11/22/24 History extended release ibuprofen 200 mg tablet (Advil) 400 mg PO Q6H PRN pain 02/01/24 Unknown History meloxicam 7.5 mg tablet 7.5 mg PO DAILY PRN pain 07/2011/22/24 History pantoprazole 40 mg tablet,delayed 40 mg PO DAILY reflu x 02/01/24 11/22/24 History release mirtazapine 7.5 mg tablet 7.5 mg PO QHS 10/14/2411/21 History ondansetron 4 mg disintegrating 4 mg PO Q4H PRN nausea and vomiting 10/14/24 Unknown History tablet solifenacin 10 mg tablet 10 mg PO QDAY 10/14/2411/22 History tamsulosin 0.4 mg capsule 0.4 mg PO QHS 10/14/2411/21 History acetaminophen 325 mg tablet (Pain 650 mg PO Q6H PRN pa in 11/08/24 Unknown History Relief (acetaminophen)) Allergy/AdvReac Type Severity Reaction Status Date / Time No Known Allergies Allergy Verified 11/22/24 11:54 Surgical History History of facial surgery History of surgery on lower extremity Hx of cholecystectomy Social History housing: apartment current occupational status: unemployed Smoking Status: Never smoker Review of Systems (Anesthesia) ROS Narrative System reviewed and no additional complaints, except as documented. 11/22/24 1211 MD> Date _ Norris Franks MD Cosigner Signature: Date CC: ~ Signed [facility]09-26-2025 History and physical note [facility] Medical Records Department [address] [facility] [place] [address] History & Physical Exam 11/22/24 1153 MR#: [id number] Acct: [id number] Name: JAYCOB CRYSTAL Rep #:[id number] : 1960 63 From: Juan Cazares DO PCP: IRIS Meier Status: [facility] Location: [place] [address] HPI - General General Date of Admission: 11/22/24 Date of Service: 11/22/24 Chief Complaint: Anemia and screening colonoscopy HPI Narrative JAYCOB MARAH, is a 63 M who presents for an egd and colonosocpy Details: - never had a colonoscopy or EGD - taking pantoprazole and this helps - he lives alone - no longer drives - denies any heart or lung disease - denies any kidney disease - never been told he is a difficult intubation - Family history is significant for father with colon CA at 79y/o. - resides in assisted living The patient is a 63-year-old male presenting with a need for colonoscopy and endoscopy evaluation due to a family history of colon cancer and long-term management of reflux esophagitis. The patient reports that he has never had a colonoscopy before. There is a significant family history as the patient's father of colon cancer at the age of 79. The patient denies any personal history of colonpolyps, change in bowel habits, blood in stools, or abdominal pain. He also denies any gastrointestinal symptoms such as heartburn, indigestion, nausea, or vomiting. The patient has a history of reflux, which has been managed with pantoprazole 40mg daily, effectively controlling his symptoms. He denies any difficulty swallowing or history of esophageal or stomachcancer in his family. The patientalso has a surgical history that includes cholecystectomy due to ga llstones and facial reconstruction surgery following a suicide attempt, involving repair withseven plates. Additionally, the patient suffered a significant fracture to the left leg that required surgical intervention to ensure proper healing. He lives alone in an assisted living facility and has been receiving care from anurse practitioner.The patient denies any alcohol use and has a non-smoking history. He does not drive any longer. Regarding his medical history, there is no history of heart, lung, kidney disease, or unexpected weightloss. The recentblood work indicated mild anemia, which was never previously identified, and thepatient denies any symptoms such as chest pain, shortness of breath, black, or tarry stools. [facility] Medical History Loss of consciousness History of echocardiogram Cardiology follow-up encounter Lives in assisted living facility Bladder disease Autism Anemia Suicide attempt Acute insomnia GERD (gastroesophageal reflux disease) Anxiety Depression Home Medications ?Medication ?Instructions ?Recorded ?Last Taken ?Type aripiprazole 5 mg tablet 7.5 mg PO DAILY [facility] 02/01/24 Unknown History bupropion HCl 150 mg 24 hr tablet, 150 mg PO DAILY [facility] 02/01/24 Unknown History extended release ibuprofen 200 mg tablet (Advil) 400 mg PO Q6H PRN pain 02/01/24 Unknown History meloxicam 7.5 mg tablet 7.5 mg PO DAILY PRN pain 07/20 Unknown History pantoprazole 40 mg tablet,delayed 40 mg PO DAILY reflu x 02/01/24 Unknown History release mirtazapine 7.5 mg tablet 7.5 mg PO QHS 10/14/24 Unkno wn History ondansetron 4 mg disintegrating 4 mg PO Q4H PRN nausea and vomiting 10/14/24 Unknown History tablet solifenacin 10 mg tablet 10 mg PO QDAY 10/14/24 Unkno wn History tamsulosin 0.4 mg capsule 0.4 mg PO QHS 10/14/24 Unkno wn History acetaminophen 325 mg tablet (Pain 650 mg PO Q6H PRN pa in 11/08/24 Unknown History Relief (acetaminophen)) Allergy/AdvReac Type Severity Reaction Status Date / Time No Known Allergies Allergy Verified 11/22/24 11:54 Surgical History History of facial surgery History of surgery on lower extremity Hx of cholecystectomy Social History housing: apartment current occupational status: unemployed Smoking Status: Never smoker ROS Constitutional Constitutional: Denies fatigue, fever(s), poor appetite, weight gain or weight loss Gastrointestinal Gastrointestinal: Denies belching, bloating, change in bowel habits, change in stool character, chewing difficulty, coffee ground emesis, constipation, cramping, diarrhea, dyspepsia, dysphagia, earlysatiety, excessive flatus, fecalincontinence, heartburn, hematemesis, hematochezia, hemorrhoids, loose stools, melena, nausea, odynophagia, rectal bleeding, tenesmus, vomiting or weight changes Physical Exam Const alert, oriented x3, no apparent distress and healthy appearing General Appearance: cooperative GI normal to inspection, nondistended, normoactive bowel sounds, soft to palpation,non-tender and non-distended Percussion: normal to percussion Rectal Exam: deferred Assessment & Plan Assessment/Plan (1) Screen for colon cancer: (2) Anemia: PLAN: Assessment and Plan Assessment and Plan (1) Anemia: Status: Acute (2) Family history of colon cancer in father: Status: Acute (3) Screen for colon cancer: Status: Acute Orders: Orders CBC W/Diff, Automated Today D64.9 - Anemia, unspecified Iron+Iron Binding Capacity Today D64.9 - Anemia, unspecified Vitamin B12 Today D64.9 - Anemia, unspecified Medications: New peg 3350-sod sulf,jxeo-fth-exy 178.7-7.3-0.5 gram (Suflave) Take as directed for split dose bowel prep 2 mL 0RF Plan 63-year-old male with a history of reflux presenting with the need for colonoscopy and endoscopy evaluation. The patient is scheduled for these procedures due to a significant family history of coloncancer and long-term treatment for reflux. A mild anemia was noted in his recent blood work, but he denies any symptoms consistent with gastrointestinal bleeding such as melena or hematochezia. The patient?s reflux has been well-controlled with pantoprazole, aProton Pump Inhibitor (PPI), and there are no new symptoms suggestive of esophageal complications. Based on the history, further evaluationwith endoscopic procedures is warranted to screen for any potential gastrointestinal pathologies, given the family history and the necessity to rule out malignanciesor other complications. Patient Instructions: Labs today Colon & EGD - Suflave 11/22/24 1156 Cosigner Signature (if applicable): CC: IRIS Kamara; Juan Cazares DO~ Signed [facility]09-26-2025 [facility] Medical Records Department [address] [place] [id number] History Physical Exam 11/22/24 1153 MR#: [id number] Acct: [id number] Name: JAYCOB CRYSTAL Rep #: [id number] : 1960 63 From: Juan Cazares DO PCP: IRIS Meier Status:[facility] Location: [place] [address] HPI - General General Date of Admission: 11/22/24 Date of Service: 11/22/24 Chief Complaint: Anemia and screening colonoscopy HPI Narrative JAYCOB MARAH, is a 63 M who presents for an egd and colonosocpy Details: - never had a colonoscopy or EGD - taking pantoprazole and this helps - he lives alone - no longer drives - denies any heart or lung disease - denies any kidney disease - never been told he is a difficult intubation - Family history is significant for father with colon CA at 79y/o. - resides in assisted living The patient is a 63-year-old male presenting with a need for colonoscopy and endoscopy evaluation due to a family history of colon cancer and long-term management of reflux esophagitis. The patient reports that he has never had a colonoscopy before. There is a significant family history as the patient's father of colon cancer at the age of 79. The patient denies any personal history of colon polyps, change in bowel habits, blood in stools, or abdominal pain. He also denies any gastrointestinal symptoms such as heartburn, indigestion, nausea, or vomiting. The patient has a history of reflux, which has been managed with pantoprazole 40 mg daily, effectively controlling his symptoms. He denies any difficulty swallowing or history of esophageal or stomach cancer in his family. The patient also has a surgical history that includes cholecystectomy due to gallstones and facial reconstruction surgery following a suicide attempt, involving repair with seven plates. Additionally, the patient suffered a significant fracture to the left leg that required surgical intervention to ensure proper healing. He lives alone in an assisted living facility and has been receiving care from a nurse practitioner. The patient denies any alcohol use and has a non-smoking history. He does not drive any longer. Regarding his medical history, there is no history of heart, lung, kidney disease, or unexpected weight loss. The recent blood work indicated mild anemia, which was never previously identified, and the patient denies any symptoms such as chest pain, shortness of breath, black, or tarry stools. [facility] Medical History Loss of consciousness History of echocardiogram Cardiology follow-up encounter Lives in assisted living facility Bladder disease Autism Anemia Suicide attempt Acute insomnia GERD (gastroesophageal reflux disease) Anxiety Depression Home Medications ???Medication ???Instructions ???Recorded ???Last Taken ???Type aripiprazole 5 mg tablet 7.5 mg PO DAILY mental health 07/20 Unknown History bupropion HCl 150 mg 24 hr tablet, 150 mg PO DAILY mental health Unknown History extended release ibuprofen 200 mg tablet (Advil) 400 mg PO Q6H PRN pain 02/01/24 Un known History meloxicam 7.5 mg tablet 7.5 mg PO DAILY PRN pain 02/01/24 Unknown History pantoprazole 40 mg tablet,delayed 40 mg PO DAILY reflux 02/01/24 Un known History release mirtazapine 7.5 mg tablet 7.5 mg PO QHS 10/14/24 Unknown His tory ondansetron 4 mg disintegrating 4 mg PO Q4H PRN nausea and vomitin g 10/14/24 Unknown History tablet solifenacin 10 mg tablet 10 mg PO QDAY 10/14/24 Unknown His tory tamsulosin 0.4 mg capsule 0.4 mg PO QHS 10/14/24 Unknown His tory acetaminophen 325 mg tablet (Pain 650 mg PO Q6H PRN pain 11/08/24 U nknown History Relief (acetaminophen)) Allergy/AdvReac Type Severity Reaction Status Date / Time No Known Allergies Allergy Verified 11/22/24 11:54 Surgical History History of facial surgery History of surgery on lower extremity Hx of cholecystectomy Social History housing: apartment current occupational status: unemployed Smoking Status: Never smoker ROS Constitutional Constitutional: Denies fatigue, fever(s), poor appetite, weight gain or weight loss Gastrointestinal Gastrointestinal: Denies belching, bloating, change in bowel habits, change in stool character, chewing difficulty, coffee ground emesis, constipation, cramping, diarrhea, dyspepsia, dysphagia, early satiety, excessive flatus, fecal incontinence, heartburn, hematemesis, hematochezia, hemorrhoids, loose stools, melena, nausea, odynophagia, rectal bleeding, tenesmus, vomiting or weight changes Physical Exam Const alert, oriented x3, no apparent distress (more content not included)...[facility]08-18-2025 Evaluation note* Diagnosis Onset Date Resolution Status Admit Date Anemia acute October 14, 2 025 10:09am Family history of colon canc er in father acute October 14 10:09am Screen for colon cancer acute A ugust 2024 10:09am [facility] Work Phone: 1(498) 731-762108-18-2025 Evaluation note* Diagnosis Onset Date Resolution Status Admit Date Anemia acute October 14, 2 025 10:09am Family history of colon cancer in father acute October 14 10:09am Screen for colon cancer acute A ugust 2024 10:09am Anemia acute October 11:24am Screen for colon cancer acute 2024 11:24am [facility] Work Phone: 1(738) 839-581312-08-2024 [facility] Medical Records Department [address] [place] [address] Discharge Summary 02/04/24 1209 MR#: [id number] Acct: [id number] Name: JAYCOB CRYSTAL Rep #: [id number] : 1960 63 From: Yan Pan DO PCP: Care Physician,No Primary Status:DIS [facility] Prov[facility] Date of Admission: 02/01/24 Date of Discharge: 02/04/24 Primary Care Physician: No Primary Care Phys Consultations 02/02/24 09:23 Consult: Cardiology Routine Consulting Provider: Landen Adorno Reason for Consult: Syncope; pause on telemetry EMERGENT Consult: No MD Notified: Yes Date Notified: 02/02/24 Time Notified: 09:23 Method of Notification: Text Reason For Visit: SYNCOPE Diagnosis Discharge Diagnosis (1) Syncope: Status: Acute Code(s): R55 - Syncope and collapse Qualifiers: Syncope type: unspecified Qualified Code(s): R55 - Syncope and collapse (2) DAMARIS (acute kidney injury): Status: Acute Code(s): N17.9 - Acute kidney failure, unspecified Medications at Discharge Home Medications acetaminophen 500 mg tablet (Tylenol Extra Strength) 500 mg PO Q4H PRN pain 02/01/24 aripiprazole 5 mg tablet 5 mg PO DAILY mental health 02/01/24 bupropion HCl 150 mg 24 hr tablet, extended release 150 mg PO DAILY mental health 02/01/24 ibuprofen 200 mg tablet (Advil) 400 mg PO Q6H PRN pain 02/01/24 meloxicam 7.5 mg tablet 7.5 mg PO DAILY PRN pain 02/01/24 pantoprazole 40 mg tablet,delayed release 40 mg PO DAILY reflux 02/01/24 trazodone 100 mg tablet 100 mg PO QHS sleep 02/01/24 Hospital Course Operations None Procedures EKG, Transthoracic echo and - (Chest x-ray, CT cervical spine, CT brain) Summary of Care Provided Minutes Spent on Discharge: 35 Hospital Course: Patient is a 63 year old male who presented to [facility] ED on 02/01/2024 after a syncopal episode. Hospital course as noted below. Patient discharged back to assisted living facility in stable condition on 02/03. 1. Syncopal episode with sinus pause ??? Cardiology followed. Presented after a syncopal episode at his assisted living facility. Notably had an episode of sinus pause of 3.6 seconds on morning of 02/01 and he was asymptomatic for this. Echo was unremarkable. Was dehydrated on admission with DAMARIS which likely contributed. Not on any medications that would cause heart block; notably his medications for depression/anxiety are associated with dizziness. Telemetry remained unremarkable for last 48 hours of admission. Stable for discharge back to assisted living facility on no new medications. 2. DAMARIS, resolved ??? Creatinine 1.73 on admit, resolved back to baseline around 1 with IV fluid resuscitation. 3. Depression/anxiety ??? Stable. Continue home aripiprazole, bupropion and trazodone at night. 4. GERD ??? Continue home PPI. 5. Reported history of dementia ??? Has donepezil listed on home medication list but does not appear he has been taking this. This medication could be associated with bradycardia and possible heart block. Held during hospitalization and discontinued on discharge. Total clinical time spent by myself addressing the patient's medical issues, reviewing all the data, and collaborating with patient's care team: 35 minutes. Physical Exam Const alert, oriented x3 and no apparent distress Constitutional Narrative: Elderly male, thin appearing, flat affect, otherwise sitting up comfortably in bed, answering questions appropriately, in no acute distress. General Appearance: cooperative and comfortable HEENT normocephalic, head/scalp atraumatic, hearing grossly normal bilaterally, nasal mucous membranes and turbinates normal and moist oral mucous membranes Eyes PERRL, EOMs intact bilaterally and conjunctivae normal Neck full ROM Chest inspection of chest normal Resp normal respiratory effort, normal air movement, no use of accessory muscles and clear to auscultation bilaterally Cardio regular rate, regular rhythm, no murmurs and peripheral pulses 2+ throughout GI normal to inspection, nondistended, normoactive bowel sounds, soft to palpation, non-tender and non- distended Back/Spine normal ROM Extremity normal to inspection, full ROM and no pedal edema Skin no rashes or lesions noted Psych mental status grossly normal Psych Narrative: Flat affect. Weight / BMI Weight Weight: 59.9 kg Body Mass Index (BMI) 18.9 ABG / Lab / Microbiology Data 02/03/24 06:10 02/03/24 06:10 D/C Instructions DC O2, CPAP, BIPAP Needs Additional Home O2 Discharge instructions: No DC home with Oxygen: No Meaningful Use Info Meaningful Use Meaningful Use Diagnoses (Choose all that apply): None applicable Ischemic Stroke Statin Dosing Therapy Reference: STATIN DOSE THERAPY REFERENCE: * Patients > (more content not included)...[facility]05-24-2024 Hospital Discharge instructions Patient Education 07/21/2023 00:17:15 Flank Pain, Uncertain Cause Flank Pain, Uncertain Cause The flank is the area between your upper abdomen and your back. Pain there is often caused by a problem with your kidneys. It might be a kidney infection or a kidney stone. Other causes of flank paininclude spinal arthritis, a pinched nerve from a back injury, or a back muscle strain or spasm. The cause of your flank pain is not certain. You may need other tests. Home care Follow these tips when caring for yourself at home: You may use acetaminophen or ibuprofen to control pain, unless your health care provider prescribedanother medicine. If you have chronic liver or kidney disease, talk with your provider before taking these medicines. Also talk with your provider first if you ve ever had a stomach ulcer or GI bleeding. If the pain is coming from your muscles, you may get relief with ice or heat. During the first 2 days after the injury, put an ice pack on the painful area for 20 minutes every 2 to 4 hours. This will reduce swelling and pain. A hot shower, hot bath, or heating pad works well for a muscle spasm. You can start with ice, then switch to heat after 2 days. You might find that alternating ice and heatworks well. Use the method that feels the best to you. Follow-up care Follow up with your healthcare provider if your symptoms don t get better over the next few days. When to seek medical advice Call your healthcare provider right away if any of these happen: Repeated vomiting Fever of 100.4 F (38 C) or higher, or as directed by your health care provider Flank pain that gets worse Pain that spreads to the front of your belly (abdomen) Dizziness, weakness, or fainting Blood in your urine Burning feeling when you urinate or the need to urinate often Pain in one of your legs that gets worse Numbness or weakness in a leg [id number] [place] [address], [place] [address]. All rights reserved. This information is not intended as a substitute for professional medical care. Always follow yourhealthcare professional's instructions. 07/21/2023 00:17:11 Back and Neck Pain, General General Neck and Back Pain Both neck and back pain are usually caused by injury to the muscles or ligaments of the spine. Sometimes the disks that separate each bone of the spine may cause pain by pressing on a nearby nerve. Back and neck pain may appear after a sudden twisting or bending force (such as in a car accident), or sometimes after a simple awkward movement. In either case, muscle spasm is often present and adds to the pain. Acute neck and back pain usually gets better in 1 to 2 weeks. Pain related to disk disease, arthritis in the spinal joints or spinal stenosis (narrowing of the spinal canal) can become chronic and last for months or years. Back and neck pain are common problems. Most people feel better in 1 or 2 weeks, and most of the rest in 1 to 2 months. Most people can remain active. People have and describe pain differently. Pain can be sharp, stabbing, shooting, aching, cramping, or burning Movement, standing, bending, lifting, sitting, or walking may worsen the pain Pain can be localized to one spot or area, or it can be more generalized Pain can spread or radiate upwards, downwards, to the front, or go down your arms Muscle spasm may occur. Most of the time mechanical problems with the muscles or spine cause the pain. it is usually causedby an injury, whether known or not, to the muscles or ligaments. While illnesses can cause back pain, it is usually not caused by a serious illness. Pain is usually related to physical activity, whether sports, exercise, work, or normal activity. Sometimes it can occur without an identifiable cause. This can happen simply by stretching or moving wrong, without noting pain at the time. Other causes include: Overexertion, lifting, pushing, pulling incorrectly or too aggressively. Sudden twisting, bending or stretching from an accident (car or fall), or accidental movement. Poor posture Poor conditioning, lack of regular exercise Spinal disc disease or arthritis Stress , or illness like appendicitis, bladder or kidney infection, pelvic infections Home care For neck pain: Use a comfortable pillow that supports the head and keeps the spine in a neutral position. The position of the head should not be tilted forward or backward. When in bed, try to find a position of comfort. A firm mattress is best. Try lying flat on your back with pillows under your knees. You can also try lying on your side with your knees bent up towardsyour chest and a pillow between your knees. At first, do not try to stretch out the sore spots. If there is a strain, it is not like the good soreness you get after exercising without an injury. In this case, stretching may make it worse. Don't sit for long periods, as in long car rides or other travel. This puts more stress on the lower back than standing or walking. During the first 24 to 72 hours after an injury, apply an ice pack to the painful area for 20 minutes and then remove it for 20 minutes over a period of 60 to 90 minutes or several times a day. You can alternate ice and heat therapies. Talk with your healthcare provider about the best treatment for your back or neck pain. As a safety precaution, do not use a heating pad at bedtime. Sleepingwith a heating pad can lead to skin [place] or tissue damage. Therapeutic massage can help relax the back and neck muscles without stretching them. Be aware of safe lifting methods and do not lift anything over 15 pounds until all the pain is gone. Medicines Talk to your healthcare provider before using medicine, especially if you have other medical problems or are taking other medicines. You may use [id number] medicine to control pain, unless another pain medicine was prescribed.If you have chronic conditions like diabetes, liver or kidney disease, stomach ulcers, gastrointestinal bleeding, or are taking blood thinner medicines. Be careful if you are given pain medicines, narcotics, or medicine for muscle spasm. They can causedrowsiness, and can affect your coordination, reflexes, and judgment. Do not drive or operate heavymachinery. Follow-up care Follow up with your healthcare provider, or as advised. Physical therapy or further tests may be needed. If X-rays were taken, you will be notified of any new findings that may affect your care. Call 911 Call 911 if any of the following occur: Trouble breathing Confusion Very drowsy or trouble awakening Fainting or loss of consciousness Rapid or very slow heart rate Loss of bowel or bladder control When to seek medical advice Call your healthcare provider right away if any of these occur: Pain becomes worse or spreads into your arms or legs Weakness, numbness or pain in one or both arms or legs Numbness in the groin area Difficulty walking Fever of 100.4 F (38 C) or higher, or as directed by your healthcare provider [id number] [place] [address]. All rights reserved. This information is not intended as a substitute for professional medical care. Always follow yourhealthcare professional's instructions. Follow Up Care 07/20/2023 22:24:38 With:CHRISTIAN QUINTERO Address: [address] [place] [phone] When:2-4 days [facility] 05-24-2024 Note Discharge Instructions Thank you for allowing [facility] to assist you with your healthcare needs. The following is importantdischarge information regarding your hospital visit. Diagnosis from Today's Visit Back pain Flank pain What to Do Next Instructions from Your Care Team Discharge Return to Work, School, or Sports (Return to Work, School, or Sports) - Ordered -- 07/22/23, May return to: work, 07/21/23 0:18:00 EDT Post Acute Orders No qualifying data available. You Need to Schedule the Following Appointments Follow Up with CHRISTIAN QUINTERO When:Within 2-4 days Where:[address] [place] [id number] [phone] Allergies [facility] Medications Please ask your primary doctor or pharmacist before taking any other medication not listed, including over the counter drugs, herbal medications, vitamins and or supplements as they may interact withyour home medications. What How Much When Why Instructions Last Dose Unchanged acetaminophen (acetaminophen 500 mg oral capsule) 2 cap by mouth Every 4 hours as needed for for fever/pain Unchanged ARIPiprazole (ARIPiprazole 5 mg oral tablet) 1 tab(s) by mouth Once a day Unchanged buPROPion (buPROPion 150 mg/ 24 hours (XL) oral tablet, extended release) 1 tab(s) by mouth Every 24 hours Unchanged cyclobenzaprine (cyclobenzaprine 5 mg oral tablet) 1 tab(s) by mouth Three (3) times a day as needed for Muscle spasm Duration: 5 Days Unchanged ibuprofen (ibuprofen 400 mg oral tablet) 1 tab(s) by mouth Every 6 hours as needed for as needed for pain Duration: 5 Days Unchanged pantoprazole (pantoprazole 40 mg oral enteric coated tablet) 1 tab(s) by mouth Once a day GERD (gastroesophageal reflux disease) Unchanged traZODone (traZODone 50 mg oral tablet) 1 tab(s) by mouth Daily at bedtime Insomnia Please take this list to your next doctor s visit. Bring all medications you take, including over the counter medications, herbals and other supplements with you to your doctor s visit. Patients and families are reminded to discard old lists and to update any records with all medication providers or retail pharmacies. Education Materials Flank Pain, Uncertain Cause The flank is the area between your upper abdomen and your back. Pain there is often caused by a problem with your kidneys. It might be a kidney infection or a kidney stone. Other causes of flank paininclude spinal arthritis, a pinched nerve from a back injury, or a back muscle strain or spasm. The cause of your flank pain is not certain. You may need other tests. Home care Follow these tips when caring for yourself at home: You may use acetaminophen or ibuprofen to control pain, unless your health care provider prescribedanother medicine. If you have chronic liver or kidney disease, talk with your provider before taking these medicines. Also talk with your provider first if you ve ever had a stomach ulcer or GI bleeding. If the pain is coming from your muscles, you may get relief with ice or heat. During the first 2 days after the injury, put an ice pack on the painful area for 20 minutes every 2 to 4 hours. This will reduce swelling and pain. A hot shower, hot bath, or heating pad works well for a muscle spasm. You can start with ice, then switch to heat after 2 days. You might find that alternating ice and heatworks well. Use the method that feels the best to you. Follow-up care Follow up with your healthcare provider if your symptoms don t get better over the next few days. When to seek medical advice Call your healthcare provider right away if any of these happen: Repeated vomiting Fever of 100.4 F (38 C) or higher, or as directed by your health care provider Flank pain that gets worse Pain that spreads to the front of your belly (abdomen) Dizziness, weakness, or fainting Blood in your urine Burning feeling when you urinate or the need to urinate often Pain in one of your legs that gets worse Numbness or weakness in a leg [id number] [place] [address]. All rights reserved. This information is not intended as a substitute for professional medical care. Always follow yourhealthcare professional's instructions. General Neck and Back Pain Both neck and back pain are usually caused by injury to the muscles or ligaments of the spine. Sometimes the disks that separate each bone of the spine may cause pain by pressing on a nearby nerve. Back and neck pain may appear after a sudden twisting or bending force (such as in a car accident), or sometimes after a simple awkward movement. In either case, muscle spasm is often present and adds to the pain. Acute neck and back pain usually gets better in 1 to 2 weeks. Pain related to disk disease, arthritis in the spinal joints or spinal stenosis (narrowing of the spinal canal) can become chronic and last for months or years. Back and neck pain are common problems. Most people feel better in 1 or 2 weeks, and most of the rest in 1 to 2 months. Most people can remain active. People have and describe pain differently. Pain can be sharp, stabbing, shooting, aching, cramping, or burning Movement, standing, bending, lifting, sitting, or walking may worsen the pain Pain can be localized to one spot or area, or it can be more generalized Pain can spread or radiate upwards, downwards, to the front, or go down your arms Muscle spasm may occur. Most of the time mechanical problems with the muscles or spine cause the pain. it is usually causedby an injury, whether known or not, to the muscles or ligaments. While illnesses can cause back pain, it is usually not caused by a serious illness. Pain is usually related to physical activity, whether sports, exercise, work, or normal activity. Sometimes it can occur without an identifiable cause. This can happen simply by stretching or moving wrong, without noting pain at the time. Other causes include: Overexertion, lifting, pushing, pulling incorrectly or too aggressively. Sudden twisting, bending or stretching from an accident (car or fall), or accidental movement. Poor posture Poor conditioning, lack of regular exercise Spinal disc disease or arthritis Stress , or illness like appendicitis, bladder or kidney infection, pelvic infections Home care For neck pain: Use a comfortable pillow that supports the head and keeps the spine in a neutral position. The position of the head should not be tilted forward or backward. When in bed, try to find a position of comfort. A firm mattress is best. Try lying flat on your back with pillows under your knees. You can also try lying on your side with your knees bent up towardsyour chest and a pillow between your knees. At first, do not try to stretch out the sore spots. If there is a strain, it is not like the good soreness you get after exercising without an injury. In this case, stretching may make it worse. Don't sit for long periods, as in long car rides or other travel. This puts more stress on the lower back than standing or walking. During the first 24 to 72 hours after an injury, apply an ice pack to the painful area for 20 minutes and then remove it for 20 minutes over a period of 60 to 90 minutes or several times a day. You can alternate ice and heat therapies. Talk with your healthcare provider about the best treatment for your back or neck pain. As a safety precaution, do not use a heating pad at bedtime. Sleepingwith a heating pad can lead to skin [place] or tissue damage. Therapeutic massage can help relax the back and neck muscles without stretching them. Be aware of safe lifting methods and do not lift anything over 15 pounds until all the pain is gone. Medicines Talk to your healthcare provider before using medicine, especially if you have other medical problems or are taking other medicines. You may use bfun-oux-mhpshiq medicine to control pain, unless another pain medicine was prescribed.If you have chronic conditions like diabetes, liver or kidney disease, stomach ulcers, gastrointestinal bleeding, or are taking blood thinner medicines. Be careful if you are given pain medicines, narcotics, or medicine for muscle spasm. They can causedrowsiness, and can affect your coordination, reflexes, and judgment. Do not drive or operate heavyIndustry Weapon. Follow-up care Follow up with your healthcare provider, or as advised. Physical therapy or further tests may be needed. If X-rays were taken, you will be notified of any new findings that may affect your care. Call 911 Call 911 if any of the following occur: Trouble breathing Confusion Very drowsy or trouble awakening Fainting or loss of consciousness Rapid or very slow heart rate Loss of bowel or bladder control When to seek medical advice Call your healthcare provider right away if any of these occur: Pain becomes worse or spreads into your arms or legs Weakness, numbness or pain in one or both arms or legs Numbness in the groin area Difficulty walking Fever of 100.4 F (38 C) or higher, or as directed by your healthcare provider [id number] [place] [address]. All rights reserved. This information is not intended as a substitute for professional medical care. Always follow yourhealthcare professional's instructions. Additional Information VACCINATE! IT SAVES LIVES! Members of the community who have not yet received the COVID-19 vaccine and would like to receive it can visit one of [facility] vaccine clinics. There are many vaccine clinic locations within the [facility]. For locations and available times, please visit [email or web address] It is important to note that some COVID mobile vaccine clinics are held outdoors and may be canceled in rainy or stormy conditions. To learn more about pediatric vaccinations (ages 5-11), we invite you to visit the [facility] webpage. [email or web address]/[email or web address] [email or web address].htmlTo learn more about the COVID-19 vaccine, we invite you to visit the CDC website for a list of frequently asked questions. https://www.cdc.gov/coronavirus/2019-ncov/vaccines/faq.html [facility] Access Instructions: Stay connected with your healthcare team and access your personal medical information anytime with the [facility] Patient Portal. If you would like a full copy of your medical records please contact the [facility] Medical Records Department Monday through Monday between 8a.m. and 4:30p.m. Please follow the directions below to access the portal: 1.Access the email account you provided upon registration to the hospital.2.Look for an invitation email from [facility].3.Open the email and access the invitation link: [facility] to [facility].Fill in the required mancuso to create your account. Sign into [email or web address] with your username and password that you created in the above steps to stay up to date. You can then view a summary of results, a summary of your visits, and the ability to download your summaries to your computer or send the information securely to a physician. Remember that your healthcare information is confidential, so carefully consider who you will allow to register on the [facility] Patient Portal for access to your information. You can also access the [facility] Patient Portal on the [employer]. Simply click on Health Records under [employer] and then click on the [facility] logo. HOW TO SAFELY DISPOSE OF PRESCRIPTION MEDICATIONS Please use one of the following methods to safely dispose of your unused medications. 1.Use a drug disposal kit: the drug disposal pouch allows you to safely discard your old and unuseddrugs. Ask your nurse to give you one when you are discharged.2.Visit a local take-back location: Many local pharmacies and police departments have programs that collect old and unwanted prescriptiondrugs. Call your local pharmacy or go to [email or web address]/9T2Rb8d to find one close to you.3.Make use of household items: Use cat litter or old coffee grounds to dispose medications if other options arenot available. Mix your drugs with these household products, seal them in an airtight container andthrow it into the garbage. Call [facility]: [phone] to be sure your drugs can be disposed of in this way. Some medicines may require a different approach.4.Never flush your medications down the toilet. IF YOU HAVE BEEN PRESCRIBED AN OPIOIDS FOR PAIN If you have been prescribed an opioid (such as hydrocodone, oxycodone or morphine), it is critical to understand the possible side effects and risks of opioid pain medications. Even when taken as directed, opioids can have several side effects including: Tolerance, meaning you might need to take more of a medication for the same pain relief. Nausea, vomiting and/or constipation. Sleepiness, dizziness, dry mouth, confusion, depression or itching. Physical dependence, meaning you have withdrawal symptoms when a medication is stopped ? this can develop within a few days. KNOW YOUR RESPONSIBILITIES It is important to know exactly how much and how often to take the opioid pain medications you are prescribed. Never take opioids in higher amounts or more often than prescribed. Do not combine opioids with alcohol or other drugs that cause drowsiness, such as benzodiazepines, also known as benzos,including diazepam and alprazolam, muscle relaxants or sleep aids. Never sell or share prescriptionopioids. This is illegal. Store opioids in a secure place and out of reach of others (including children, family, friends and visitors). The last page(s) of this document has been signed and retained as a CHART COPY Signatures Patient Education Materials Flank Pain, Uncertain Cause Back and Neck Pain, General Medication Leaflets My discharge plan and instructions have been reviewed and explained to me and IMARAH DEAN A understand my current condition and have read and understand these discharge instructions. I have received a written copy of the plan/instructions. If I have questions, I am aware that I should contactmy doctor. 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 Multiplanar reformatted images are provided for review. Automated exposure control, iterative reconstruction, and/or weight based adjustment of the mA/kV was utilized to reduce the radiation dose to as low as reasonably achievable. COMPARISON: None available HISTORY: ORDERING SYSTEM PROVIDED HISTORY: Reason for Exam: C/o bilat lower back pain. pain FINDINGS: The size, density, and morphology of the liver, spleen, adrenals, kidneys, pancreas and unopacified loops of bowel are unremarkable. Prior cholecystectomy and gastric sleeve noted. The opacified aorta demonstrates normal size and morphology without aneurysmal dilation or dissection. There are no enlarged lymph nodes by pathologic size criteria. There is no free fluid within the pelvis. Mild bladder wall thickening. The pelvic organs have an unremarkable CT appearance. The osseous structures are without gross lytic or sclerotic lesion. The lung bases are clear. IMPRESSION: No acute intra-abdominal or intrapelvic pathology. Bladder wall thickening may be due to cystitis, laboratory correlation is needed. Interpreted by: Chucho Cortes MD Preliminary Report By: Chucho Cortes MD Electronically signed By Chucho Cortes MD Dictated Date: 07/20/2023 11:28:52 PM Prelim Date: 07/20/2023 11:34:23 PM Sign Date: 07/20/2023 11:34:23 PM Ordering Provider: [facility]05-21-2024 Hospital Discharge instructions Patient Education 07/18/2023 00:34:02 Back Pain (Acute or Chronic) Back Pain (Acute or Chronic) Back pain is one of the most common problems. The good news is that most people feel better in 1 to2 weeks, and most of the rest in 1 to 2 months. Most people can remain active. People who have pain describe it differently not everyone is the same. The pain can be sharp, stabbing, shooting, aching, cramping or burning. Movement, standing, bending, lifting, sitting, or walking may worsen pain. It can be localized to one spot or area, or it can be more generalized. It can spread or radiate upwards, to the front, or go down your arms or legs (sciatica). It can cause muscle spasm. Most of the time, mechanical problems with the muscles or spine cause the pain. Mechanical problemsare usually caused by an injury to the muscles or ligaments. While illness can cause back pain, it is usually not caused by a serious illness. Mechanical problems include: Physical activity such as sports, exercise, work, or normal activity Overexertion, lifting, pushing, pulling incorrectly or too aggressively Sudden twisting, bending, or stretching from an accident, or accidental movement Poor posture Stretching or moving wrong, without noticing pain at the time Poor coordination, lack of regular exercise (check with your doctor about this) Spinal disc disease or arthritis Stress Pain can also be related to , or illness like appendicitis, bladder or kidney infections, pelvic infections, and many other things. Acute back pain usually gets better in 1 to 2 weeks. Back pain related to disk disease, arthritis in the spinal joints or spinal stenosis (narrowing of the spinal canal) can become chronic and last for months or years. Unless you had a physical injury (for example, a car accident or fall) X-rays are usually not needed for the initial evaluation of back pain. If pain continues and does not respond to medical treatment, X-rays and other tests may be needed. Home care Try these home care recommendations: When in bed, try to find a position of comfort. A firm mattress is best. Try lying flat on your back with pillows under your knees. You can also try lying on your side with your knees bent up towardsyour chest and a pillow between your knees. At first, do not try to stretch out the sore spots. If there is a strain, it is not like the good soreness you get after exercising without an injury. In this case, stretching may make it worse. Don't sit for long periods, as in a long car ride or during other travel. This puts more stress on the lower back than standing or walking. During the first 24 to 72 hours after an acute injury or flare up of chronic back pain, apply an ice pack to the painful area for 20 minutes and then remove it for 20 minutes. Do this over a period of 60 to 90 minutes or several times a day. This will reduce swelling and pain. Wrap the ice pack in a thin towel or plastic to protect your skin. You can start with ice, then switch to heat. Heat (hot shower, hot bath, or heating pad) reduces pain and works well for muscle spasms. Heat can be applied to the painful area for 20 minutes then remove it for 20 minutes. Do this over a period of 60 to 90 minutes or several times a day. Do not sleep on a heating pad. It can lead to skin [place]ar[place] or tissue damage. You can alternate ice and heat therapy. Talk with your doctor about the best treatment for your back pain. Therapeutic massage can help relax the back muscles without stretching them. Be aware of safe lifting methods and do not lift anything without stretching first. Medicines Talk to your doctor before using medicine, especially if you have other medical problems or are taking other medicines. You may use ptvh-oid-uconeak medicine as directed on the bottle to control pain, unless another pain medicine was prescribed. If you have chronic conditions like diabetes, liver or kidney disease, stomach ulcers, or gastrointestinal bleeding, or are taking blood thinners, talk to your doctor beforetaking any medicine. Be careful if you are given a prescription medicines, narcotics, or medicine for muscle spasms. They can cause drowsiness, affect your coordination, reflexes, and judgement. Do not drive or operate heavy machinery. Follow-up care Follow up with your healthcare provider, or as advised. A radiologist will review any X-rays that were taken. Your provide will notify you of any new findings that may affect your care. Call 911 Call 911 if any of the following occur: Trouble breathing Confusion Very drowsy or trouble awakening Fainting or loss of consciousness Rapid or very slow heart rate Loss of bowel or bladder control When to seek medical advice Call your healthcare provider right away if any of these occur: Pain becomes worse or spreads to your legs Weakness or numbness in one or both legs Numbness in the groin or genital area [id number] [place] [address]. All rights reserved. This information is not intended as a substitute for professional medical care. Always follow yourhealthcare professional's instructions. Follow Up Care 07/17/2023 21:09:51 With:CHRISTIAN QUINTERO Address: [address] [facility], [place] [id number] [phone] When:2-4 days [facility] 05-21-2024 Note Discharge Instructions Thank you for allowing [facility] to assist you with your healthcare needs. The following is importantdischarge information regarding your hospital visit. Diagnosis from Today's Visit Low back pain What to Do Next Instructions from Your Care Team No qualifying data available. Post Acute Orders No qualifying data available. 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 What How Much When Why Instructions Last Dose New cyclobenzaprine (cyclobenzaprine 5 mg oral tablet) 1 tab(s) by mouth Three (3) times a day as needed for Muscle spasm Duration: 5 Days Printed Prescription New ibuprofen (ibuprofen 400 mg oral tablet) 1 tab(s) by mouth Every 6 hours as needed for as needed for pain Duration: 5 Days Printed Prescription Unchanged acetaminophen (acetaminophen 500 mg oral capsule) 2 cap by mouth Every 4 hours as needed for for fever/pain Unchanged ARIPiprazole (ARIPiprazole 5 mg oral tablet) 1 tab(s) by mouth Once a day Unchanged buPROPion (buPROPion 150 mg/ 24 hours (XL) oral tablet, extended release) 1 tab(s) by mouth Every 24 hours Unchanged pantoprazole (pantoprazole 40 mg oral enteric coated tablet) 1 tab(s) by mouth Once a day GERD (gastroesophageal reflux disease) Unchanged traZODone (traZODone 50 mg oral tablet) 1 tab(s) by mouth Daily at bedtime Insomnia Please take this list to your next doctor s visit. Bring all medications you take, including over the counter medications, herbals and other supplements with you to your doctor s visit. Patients and families are reminded to discard old lists and to update any records with all medication providers or retail pharmacies. Education Materials Back Pain (Acute or Chronic) Back pain is one of the most common problems. The good news is that most people feel better in 1 to2 weeks, and most of the rest in 1 to 2 months. Most people can remain active. People who have pain describe it differently not everyone is the same. The pain can be sharp, stabbing, shooting, aching, cramping or burning. Movement, standing, bending, lifting, sitting, or walking may worsen pain. It can be localized to one spot or area, or it can be more generalized. It can spread or radiate upwards, to the front, or go down your arms or legs (sciatica). It can cause muscle spasm. Most of the time, mechanical problems with the muscles or spine cause the pain. Mechanical problemsare usually caused by an injury to the muscles or ligaments. While illness can cause back pain, it is usually not caused by a serious illness. Mechanical problems include: Physical activity such as sports, exercise, work, or normal activity Overexertion, lifting, pushing, pulling incorrectly or too aggressively Sudden twisting, bending, or stretching from an accident, or accidental movement Poor posture Stretching or moving wrong, without noticing pain at the time Poor coordination, lack of regular exercise (check with your doctor about this) Spinal disc disease or arthritis Stress Pain can also be related to , or illness like appendicitis, bladder or kidney infections, pelvic infections, and many other things. Acute back pain usually gets better in 1 to 2 weeks. Back pain related to disk disease, arthritis in the spinal joints or spinal stenosis (narrowing of the spinal canal) can become chronic and last for months or years. Unless you had a physical injury (for example, a car accident or fall) X-rays are usually not needed for the initial evaluation of back pain. If pain continues and does not respond to medical treatment, X-rays and other tests may be needed. Home care Try these home care recommendations: When in bed, try to find a position of comfort. A firm mattress is best. Try lying flat on your back with pillows under your knees. You can also try lying on your side with your knees bent up towardsyour chest and a pillow between your knees. At first, do not try to stretch out the sore spots. If there is a strain, it is not like the good soreness you get after exercising without an injury. In this case, stretching may make it worse. Don't sit for long periods, as in a long car ride or during other travel. This puts more stress on the lower back than standing or walking. During the first 24 to 72 hours after an acute injury or flare up of chronic back pain, apply an ice pack to the painful area for 20 minutes and then remove it for 20 minutes. Do this over a period of 60 to 90 minutes or several times a day. This will reduce swelling and pain. Wrap the ice pack in a thin towel or plastic to protect your skin. You can start with ice, then switch to heat. Heat (hot shower, hot bath, or heating pad) reduces pain and works well for muscle spasms. Heat can be applied to the painful area for 20 minutes then remove it for 20 minutes. Do this over a period of 60 to 90 minutes or several times a day. Do not sleep on a heating pad. It can lead to skin [place] or tissue damage. You can alternate ice and heat therapy. Talk with your doctor about the best treatment for your back pain. Therapeutic massage can help relax the back muscles without stretching them. Be aware of safe lifting methods and do not lift anything without stretching first. Medicines Talk to your doctor before using medicine, especially if you have other medical problems or are taking other medicines. You may use txcl-ajf-macvciw medicine as directed on the bottle to control pain, unless another pain medicine was prescribed. If you have chronic conditions like diabetes, liver or kidney disease, stomach ulcers, or gastrointestinal bleeding, or are taking blood thinners, talk to your doctor beforetaking any medicine. Be careful if you are given a prescription medicines, narcotics, or medicine for muscle spasms. They can cause drowsiness, affect your coordination, reflexes, and judgement. Do not drive or operate heavy machinery. Follow-up care Follow up with your healthcare provider, or as advised. A radiologist will review any X-rays that were taken. Your provide will notify you of any new findings that may affect your care. Call 911 Call 911 if any of the following occur: Trouble breathing Confusion Very drowsy or trouble awakening Fainting or loss of consciousness Rapid or very slow heart rate Loss of bowel or bladder control When to seek medical advice Call your healthcare provider right away if any of these occur: Pain becomes worse or spreads to your legs Weakness or numbness in one or both legs Numbness in the groin or genital area [id number] [place] [address], [place] [address]. All rights reserved. This information is not intended as a substitute for professional medical care. Always follow yourhealthcare professional's instructions. Additional Information VACCINATE! IT SAVES LIVES! Members of the community who have not yet received the COVID-19 vaccine and would like to receive it can visit one of [facility] vaccine clinics. There are many vaccine clinic locations within the [facility]. For locations and available times, please visit [email or web address] It is important to note that some COVID mobile vaccine clinics are held outdoors and may be canceled in rainy or stormy conditions. To learn more about pediatric vaccinations (ages 5-11), we invite you to visit the [facility] webpage. [email or web address] [email or web address] learn more about the COVID-19 vaccine, we invite you to visit the CDC website for a list of frequently asked questions. https://www.cdc.gov/coronavirus/2019-ncov/vaccines/faq.html [facility] Patient Portal Access Instructions: Stay connected with your healthcare team and access your personal medical information anytime with the [facility] Patient Portal. If you would like a full copy of your medical records please contact the [facility] Medical Records Department Monday through Monday between 8a.m. and 4:30p.m. Please follow the directions below to access the portal: 1.Access the email account you provided upon registration to the [facility].2.Look for an invitation email from [facility].3.Open the email and access the invitation link: Accept Invitation to [facility]4.Fill in the required mancuso to create your account. Sign into [email or web address].[email or web address] with your username and password that you created in the above steps to stay up to date. You can then view a summary of results, a summary of your visits, and the ability to download your summaries to your computer or send the information securely to a physician. Remember that your healthcare information is confidential, so carefully consider who you will allow to register on the [facility] Patient Portal for access to your information. You can also access the [employer] Patient Portal on the Mum[employer] radha. Simply click on Health Records under [employer] and then click on the [employer] logo. HOW TO SAFELY DISPOSE OF PRESCRIPTION MEDICATIONS Please use one of the following methods to safely dispose of your unused medications. 1.Use a drug disposal kit: the drug disposal pouch allows you to safely discard your old and unuseddrugs. Ask your nurse to give you one when you are discharged.2.Visit a local take-back location: Many local pharmacies and police departments have programs that collect old and unwanted prescriptiondrugs. Call your local pharmacy or go to http://[employer] Games/5Y7Yz5s to find one close to you.3.Make use of household items: Use cat litter or old coffee grounds to dispose medications if other options arenot available. Mix your drugs with these household products, seal them in an airtight container andthrow it into the garbage. Call [facility]: [phone] to be sure your drugs can be disposed of in this way. Some medicines may require a different approach.4.Never flush your medications down the toilet. IF YOU HAVE BEEN PRESCRIBED AN OPIOIDS FOR PAIN If you have been prescribed an opioid (such as hydrocodone, oxycodone or morphine), it is critical to understand the possible side effects and risks of opioid pain medications. Even when taken as directed, opioids can have several side effects including: Tolerance, meaning you might need to take more of a medication for the same pain relief. Nausea, vomiting and/or constipation. Sleepiness, dizziness, dry mouth, confusion, depression or itching. Physical dependence, meaning you have withdrawal symptoms when a medication is stopped ? this can develop within a few days. KNOW YOUR RESPONSIBILITIES It is important to know exactly how much and how often to take the opioid pain medications you are prescribed. Never take opioids in higher amounts or more often than prescribed. Do not combine opioids with alcohol or other drugs that cause drowsiness, such as benzodiazepines, also known as benzos,including diazepam and alprazolam, muscle relaxants or sleep aids. Never sell or share prescriptionopioids. This is illegal. Store opioids in a secure place and out of reach of others (including children, family, friends and visitors). The last page(s) of this document has been signed and retained as a CHART COPY Signatures Patient Education Materials Back Pain (Acute or Chronic) Medication Leaflets My discharge plan and instructions have been reviewed and explained to me and IMARAH DEAN A understand my current condition and have read and understand these discharge instructions. I have received a written copy of the plan/instructions. If I have questions, I am aware that I should contactmy doctor. 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 MICRO - Microbiology PROCEDURE: Blood Culture (bacterial) [*1] SOURCE: Blood BODY SITE: COLLECTED DATE/TIME: 06/12/2023 18:36 EDT RECEIVED DATE/TIME: 06/14/2023 13:58 EDT START DATE/TIME: 06/14/2023 13:58 EDT FREE TEXT SOURCE: FINAL REPORTS Final Report [] Verified Date/Time/Personnel: 06/19/2023 13:59 EDT Blood Culture: No Growth at 5 days. PRELIMINARY REPORTS Preliminary Report [] Verified Date/Time/Personnel: 06/14/2023 15:00 EDT Culture has been received in lab and is no growth to date. Routine cultures are held for 5 days. Performing Locations *1: This test was performed at: [address], [facility] , [facility] ([place])06-18-2023 Note. MICRO - Microbiology PROCEDURE: Blood Culture (bacterial) [*1] SOURCE: Blood BODY SITE: COLLECTED DATE/TIME: 06/12/2023 18:36 EDT RECEIVED DATE/TIME: 06/13/2023 14:32 EDT START DATE/TIME: 06/13/2023 14:33 EDT FREE TEXT SOURCE: FINAL REPORTS Final Report [] Verified Date/Time/Personnel: 06/18/2023 14:59 EDT Blood Culture: No Growth at 5 days. PRELIMINARY REPORTS Preliminary Report [] Verified Date/Time/Personnel: 06/13/2023 15:59 EDT Culture has been received in lab and is no growth to date. Routine cultures are held for 5 days. Performing Locations *1: This test was performed at: [facility], [address] [place] [address], [id number] , [facility] ([place])06-12-2023 Hospital Discharge instructions Patient Education 06/12/2023 21:29:15 Paraesthesias Paraesthesias Paraesthesia is a burning or prickling sensation that is sometimes felt in the hands, arms, legs orfeet. It can also occur in other parts of the body. It can also feel like tingling or numbness, skin crawling, or itching. The feeling is not comfortable, but it is not painful. (The pins and needles feeling that happens when a foot or hand falls asleep is a temporary paraesthesia.) Paraesthesias that last or come and go may be caused by medical issues that need to be treated. These include stroke, a bulging disk pressing on a nerve, a trapped nerve, vitamin deficiencies, uncontrolled diabetes, alcohol abuse, or even certain medicines. Tests are often done. These tests may include blood tests, X-ray, CT (computerized tomography) scan, nerve conduction studies (NCS), or a muscle test (electromyography). Depending on the cause, treatment may include physical therapy. Home care Tell your healthcare provider about all medicines you take. This includes prescription and kiis-ypa-ghtlywq medicines, vitamins, and herbs. Ask if any of the medicines may be causing your problems. Don't make any changes to prescription medicines without talking to your healthcare provider first. You may be prescribed medicines to help relieve the tingling feeling or for pain. Take all medicines as directed. A numb hand or foot may be more prone to injury. To help protect it: oAlways use oven mitts. oTest water with an unaffected hand or foot. oUse caution when trimming nails. File sharp areas. oWear shoes that fit well to avoid pressure points, blisters, and ulcers. oInspect your hands and feet carefully (including the soles of your feet and between your toes) daily. If you see red areas, sores, or other problems, tell your healthcare provider. Follow-up care Follow up with your doctor, or as advised. You may need further testing or evaluation. When to seek medical advice Call your healthcare provider right away if any of the following occur: Numbness or weakness of the face, one arm, or one leg Slurred speech, confusion, trouble speaking, walking, or seeing Severe headache, fainting spell, dizziness, or seizure Chest, arm, neck, or upper back pain Loss of bladder or bowel control Open wound with redness, swelling, or pus [address] [place] [address]. All rights reserved. This information is not intended as a substitute for professional medical care. Always follow yourhealthcare professional's instructions. 06/12/2023 21:29:12 Dehydration Dehydration The human body is comprised largely of water. If you lose more fluids than you take in, you can become dehydrated. This means there are not enough fluids in your body for it to function right. Mild dehydration can cause weakness, confusion, or muscle cramps. In extreme cases, it can lead to brain damage and even . That's why prompt treatment is crucial. Risk factors Anyone can become dehydrated. But infants, children, and older adults are at greatest risk. You aremost likely to lose fluids with severe vomiting, diarrhea, or a fever. Exercising or working hard especially in hot weather can also cause excess fluid loss. What to do Drinking liquids is the best way to prevent dehydration. Water is best, but juice or frozen pops can also help. For adults, don't use liquids that contain caffeine or alcohol to rehydrate. Your doctor may suggest electrolyte solutions for sick infants and young children. When to go to the emergency room (ER) Go to an ER right away for these symptoms: Adults Very dark urine and little urine output Dizziness, weakness, confusion, fainting Children Sunken eyes Little or no urine output (for infants, no wet diaper in 8 hours) Very dark urine Skin that doesn't bounce back quickly when pinched Crying without tears Lethargy, decreased activity, or increased sleepiness What to expect in the emergency room Your blood pressure, temperature, and heart rate will be checked. You may have blood or urine tests. The main treatment for dehydration is fluids. You may be given these to drink. Or, you may receivethem through a vein in your arm. You also may be treated for diarrhea, vomiting, or a high fever. [address] [place] [address]. All rights reserved. This information is not intended as a substitute for professional medical care. Always follow yourhealthcare professional's instructions. Follow Up Care 06/12/2023 17:20:19 With:CHRISTIAN QUINTERO Address: [address] [place] [phone] When:2-4 days [facility] 04-15-2024 Note Discharge Instructions Thank you for allowing [facility] to assist you with your healthcare needs. The following is importantdischarge information regarding your hospital visit. Diagnosis from Today's Visit Dehydration Hypotension Numbness/tingling left hand x 3 weeks Paresthesias What to Do Next Instructions from Your Care Team No qualifying data available. Post Acute Orders No qualifying data available. You Need to Schedule the Following Appointments Follow Up with CHRISTIAN QUINTERO When Within 2-4 days Where: [address] [place] [address] [phone] Allergies NKA Medications Please ask your primary doctor or pharmacist before taking any other medication not listed, including over the counter drugs, herbal medications, vitamins and or supplements as they may interact withyour home medications. What How Much When Why Instructions Last Dose Unchanged acetaminophen (acetaminophen 500 mg oral capsule) 2 cap by mouth Every 4 hours as needed for for fever/pain Unchanged ARIPiprazole (ARIPiprazole 5 mg oral tablet) 1 tab(s) by mouth Once a day Unchanged donepezil (donepezil 10 mg oral tablet) 1 tab(s) by mouth Once a day Unchanged mirtazapine (mirtazapine 15 mg oral tablet) 1 tab(s) by mouth Daily at bedtime Unchanged pantoprazole (pantoprazole 40 mg oral enteric coated tablet) 1 tab(s) by mouth Once a day GERD (gastroesophageal reflux disease) Unchanged traZODone (traZODone 50 mg oral tablet) 1 tab(s) by mouth Daily at bedtime Insomnia Please take this list to your next doctor s visit. Bring all medications you take, including over the counter medications, herbals and other supplements with you to your doctor s visit. Patients and families are reminded to discard old lists and to update any records with all medication providers or retail pharmacies. Education Materials Paraesthesias Paraesthesia is a burning or prickling sensation that is sometimes felt in the hands, arms, legs orfeet. It can also occur in other parts of the body. It can also feel like tingling or numbness, skin crawling, or itching. The feeling is not comfortable, but it is not painful. (The pins and needles feeling that happens when a foot or hand falls asleep is a temporary paraesthesia.) Paraesthesias that last or come and go may be caused by medical issues that need to be treated. These include stroke, a bulging disk pressing on a nerve, a trapped nerve, vitamin deficiencies, uncontrolled diabetes, alcohol abuse, or even certain medicines. Tests are often done. These tests may include blood tests, X-ray, CT (computerized tomography) scan, nerve conduction studies (NCS), or a muscle test (electromyography). Depending on the cause, treatment may include physical therapy. Home care Tell your healthcare provider about all medicines you take. This includes prescription and bfur-wpp-zowwujq medicines, vitamins, and herbs. Ask if any of the medicines may be causing your problems. Don't make any changes to prescription medicines without talking to your healthcare provider first. You may be prescribed medicines to help relieve the tingling feeling or for pain. Take all medicines as directed. A numb hand or foot may be more prone to injury. To help protect it: oAlways use oven mitts. oTest water with an unaffected hand or foot. oUse caution when trimming nails. File sharp areas. oWear shoes that fit well to avoid pressure points, blisters, and ulcers. oInspect your hands and feet carefully (including the soles of your feet and between your toes) daily. If you see red areas, sores, or other problems, tell your healthcare provider. Follow-up care Follow up with your doctor, or as advised. You may need further testing or evaluation. When to seek medical advice Call your healthcare provider right away if any of the following occur: Numbness or weakness of the face, one arm, or one leg Slurred speech, confusion, trouble speaking, walking, or seeing Severe headache, fainting spell, dizziness, or seizure Chest, arm, neck, or upper back pain Loss of bladder or bowel control Open wound with redness, swelling, or pus [phone] [place] [address]. All rights reserved. This information is not intended as a substitute for professional medical care. Always follow yourhealthcare professional's instructions. Dehydration The human body is comprised largely of water. If you lose more fluids than you take in, you can become dehydrated. This means there are not enough fluids in your body for it to function right. Mild dehydration can cause weakness, confusion, or muscle cramps. In extreme cases, it can lead to brain damage and even . That's why prompt treatment is crucial. Risk factors Anyone can become dehydrated. But infants, children, and older adults are at greatest risk. You aremost likely to lose fluids with severe vomiting, diarrhea, or a fever. Exercising or working hard especially in hot weather can also cause excess fluid loss. What to do Drinking liquids is the best way to prevent dehydration. Water is best, but juice or frozen pops can also help. For adults, don't use liquids that contain caffeine or alcohol to rehydrate. Your doctor may suggest electrolyte solutions for sick infants and young children. When to go to the emergency room (ER) Go to an ER right away for these symptoms: Adults Very dark urine and little urine output Dizziness, weakness, confusion, fainting Children Sunken eyes Little or no urine output (for infants, no wet diaper in 8 hours) Very dark urine Skin that doesn't bounce back quickly when pinched Crying without tears Lethargy, decreased activity, or increased sleepiness What to expect in the emergency room Your blood pressure, temperature, and heart rate will be checked. You may have blood or urine tests. The main treatment for dehydration is fluids. You may be given these to drink. Or, you may receivethem through a vein in your arm. You also may be treated for diarrhea, vomiting, or a high fever. [phone] [place] [address]. All rights reserved. This information is not intended as a substitute for professional medical care. Always follow yourhealthcare professional's instructions. Additional Information VACCINATE! IT SAVES LIVES! Members of the community who have not yet received the COVID-19 vaccine and would like to receive it can visit one of [facility] vaccine clinics. There are many vaccine clinic locations within the [facility]. For locations and available times, please visit [email or web address].[place].gov/. It is important to note that some COVID mobile vaccine clinics are held outdoors and may be canceled in rainy or stormy conditions. To learn more about pediatric vaccinations (ages 5-11), we invite you to visit the [facility] webpage. https://www.[email or web address].org/pages/[email or web address]-Jhoki-Zxiwccsrilj-Udrhbqdivb-Ybpge-Mcg stions.htmlTo learn more about the COVID-19 vaccine, we invite you to visit the CDC website for a list of frequently asked questions. https://www.cdc.gov/coronavirus/2019-ncov/vaccines/faq.html [employer] Patient Portal Access Instructions: Stay connected with your healthcare team and access your personal medical information anytime with the [facility] Patient Portal. If you would like a full copy of your medical records please contact the [facility] Medical Records Department Monday through Monday between 8a.m. and 4:30p.m. Please follow the directions below to access the portal: 1.Access the email account you provided upon registration to the hospital.2.Look for an invitation email from [facility].3.Open the email and access the invitation link: Accept Invitation to [facility]4.Fill in the required mancuso to create your account. Sign into www.Bensata with your username and password that you created in the above steps to stay up to date. You can then view a summary of results, a summary of your visits, and the ability to download your summaries to your computer or send the information securely to a physician. Remember that your healthcare information is confidential, so carefully consider who you will allow to register on the [facility] Patient Portal for access to your information. You can also access the [employer] Patient Portal on the [employer]. Simply click on Health Records under [employer] and then click on the [employer] logo. HOW TO SAFELY DISPOSE OF PRESCRIPTION MEDICATIONS Please use one of the following methods to safely dispose of your unused medications. 1.Use a drug disposal kit: the drug disposal pouch allows you to safely discard your old and unuseddrugs. Ask your nurse to give you one when you are discharged.2.Visit a local take-back location: Many local pharmacies and police departments have programs that collect old and unwanted prescriptiondrugs. Call your local pharmacy or go to http://[employer]/0T2Wc9a to find one close to you.3.Make use of household items: Use cat litter or old coffee grounds to dispose medications if other options arenot available. Mix your drugs with these household products, seal them in an airtight container andthrow it into the garbage. Call [facility]: [phone] to be sure your drugs can be disposed of in this way. Some medicines may require a different approach.4.Never flush your medications down the toilet. IF YOU HAVE BEEN PRESCRIBED AN OPIOIDS FOR PAIN If you have been prescribed an opioid (such as hydrocodone, oxycodone or morphine), it is critical to understand the possible side effects and risks of opioid pain medications. Even when taken as directed, opioids can have several side effects including: Tolerance, meaning you might need to take more of a medication for the same pain relief. Nausea, vomiting and/or constipation. Sleepiness, dizziness, dry mouth, confusion, depression or itching. Physical dependence, meaning you have withdrawal symptoms when a medication is stopped ? this can develop within a few days. KNOW YOUR RESPONSIBILITIES It is important to know exactly how much and how often to take the opioid pain medications you are prescribed. Never take opioids in higher amounts or more often than prescribed. Do not combine opioids with alcohol or other drugs that cause drowsiness, such as benzodiazepines, also known as benzos,including diazepam and alprazolam, muscle relaxants or sleep aids. Never sell or share prescriptionopioids. This is illegal. Store opioids in a secure place and out of reach of others (including children, family, friends and visitors). The last page(s) of this document has been signed and retained as a CHART COPY Signatures Patient Education Materials Paraesthesias Dehydration Medication Leaflets My discharge plan and instructions have been reviewed and explained to me and IMARAH DEAN A understand my current condition and have read and understand these discharge instructions. I have received a written copy of the plan/instructions. If I have questions, I am aware that I should contactmy doctor. 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 There is no consolidation, vascular congestion, pleural effusion, or pneumothorax. There are no acute abnormalities to osseous structures. IMPRESSION: No acute radiographic findings. Interpreted by: Chucho Willams DO Preliminary Report By: Chucho Willams DO Electronically signed By Chucho Willams DO Dictated Date: 06/12/2023 7:02:28 PM Prelim Date: 06/12/2023 7:02:51 PM Sign Date: 06/12/2023 7:02:51 PM [facility]ing [facility] NoteSinus rhythm Right axis deviation Baseline wander in lead(s) V1 Electronic Signature: CARIDAD SALDANA MD 06/12/2023 18:21:21[facility] 04-15-2024 Evaluation + Plan note Diagnostic Tests Pending * Blood Culture (bacterial) 06/12/23 * Blood Culture (bacterial) 06/12/23 Future Scheduled Tests Laboratory* Prostate Specific Antigen 10/11/22 * Prostate Specific Antigen 10/11/22 * Lipid Profile 10/11/22 * Hepatitis C Antibody IgG 10/11/22 * Complete Metabolic Panel 10/11/22 [facility] 04-03-2024 Hospital Discharge instructions Patient Education 05/31/2023 14:23:46 Dehydration (Adult) Dehydration (Adult) Dehydration occurs when your body loses too much fluid. This may be the result of prolonged vomiting or diarrhea, excessive sweating, or a high fever. It may also happen if you don t drink enough fluid when you re sick or out in the heat. Misuse of diuretics (water pills) can also be a cause. Symptoms include thirst and decreased urine output. You may also feel dizzy, weak, fatigued, or very drowsy. The diet described below is usually enough to treat dehydration. In some cases, you may need medicine. Home care Drink at least 12 8-ounce glasses of fluid every day to resolve the dehydration. Fluid may include water; orange juice; lemonade; apple, grape, or cranberry juice; clear fruit drinks; electrolyte replacement and sports drinks; and teas and coffee without caffeine. Don't drink alcohol. If you have been diagnosed with a kidney disease, ask your doctor how much and what types of fluids you should drink to prevent dehydration. If you have kidney disease, fluid can build up in the body. This can be dangerous to your health. If you have a fever, muscle aches, or a headache as a result of a cold or flu, you may take acetaminophen or ibuprofen, unless another medicine was prescribed. If you have chronic liver or kidney disease, or have ever had a stomach ulcer or gastrointestinal bleeding, talk with your healthcare provider before using these medicines. Don't take aspirin if you are younger than 18 and have a fever. Aspirin raises the chance for severe liver injury. Follow-up care Follow up with your healthcare provider, or as advised. When to seek medical advice Call your healthcare provider right away if any of these occur: Continued vomiting Frequent diarrhea (more than 5 times a day); blood (red or black color) or mucus in diarrhea Blood in vomit or stool Swollen abdomen or increasing abdominal pain Weakness, dizziness, or fainting Unusual drowsiness or confusion Reduced urine output or extreme thirst Fever of 100.4 F (38 C) or higher [address] [place] [address], [place] [address]. All rights reserved. This information is not intended as a substitute for professional medical care. Always follow yourhealthcare professional's instructions. Follow Up Care 05/31/2023 10:49:43 With:CHRISTIAN QUINTERO [facility] Address: [address], [place] [phone] [phone] When:2-4 days [facility] 04-03-2024 Note Discharge Instructions Thank you for allowing [facility] to assist you with your healthcare needs. The following is importantdischarge information regarding your hospital visit. Diagnosis from Today's Visit Cough Numbness/tingling What to Do Next Instructions from Your Care Team No qualifying data available. Post Acute Orders No qualifying data available. You Need to Schedule the Following Appointments Follow Up with CHRISTIAN QUINTERO When Within 2-4 days Where: [address] [place] [address]- [phone] Allergies NKA Medications Please ask your primary doctor or pharmacist before taking any other medication not listed, including over the counter drugs, herbal medications, vitamins and or supplements as they may interact withyour home medications. What How Much When Why Instructions Last Dose Unchanged acetaminophen (acetaminophen 500 mg oral capsule) 2 cap by mouth Every 4 hours as needed for for fever/pain Unchanged ARIPiprazole (ARIPiprazole 5 mg oral tablet) 1 tab(s) by mouth Once a day Unchanged donepezil (donepezil 10 mg oral tablet) 1 tab(s) by mouth Once a day Unchanged mirtazapine (mirtazapine 15 mg oral tablet) 1 tab(s) by mouth Daily at bedtime Unchanged pantoprazole (pantoprazole 40 mg oral enteric coated tablet) 1 tab(s) by mouth Once a day GERD (gastroesophageal reflux disease) Unchanged traZODone (traZODone 50 mg oral tablet) 1 tab(s) by mouth Daily at bedtime Insomnia Please take this list to your next doctor s visit. Bring all medications you take, including over the counter medications, herbals and other supplements with you to your doctor s visit. Patients and families are reminded to discard old lists and to update any records with all medication providers or retail pharmacies. Education Materials Dehydration (Adult) Dehydration occurs when your body loses too much fluid. This may be the result of prolonged vomiting or diarrhea, excessive sweating, or a high fever. It may also happen if you don t drink enough fluid when you re sick or out in the heat. Misuse of diuretics (water pills) can also be a cause. Symptoms include thirst and decreased urine output. You may also feel dizzy, weak, fatigued, or very drowsy. The diet described below is usually enough to treat dehydration. In some cases, you may need medicine. Home care Drink at least 12 8-ounce glasses of fluid every day to resolve the dehydration. Fluid may include water; orange juice; lemonade; apple, grape, or cranberry juice; clear fruit drinks; electrolyte replacement and sports drinks; and teas and coffee without caffeine. Don't drink alcohol. If you have been diagnosed with a kidney disease, ask your doctor how much and what types of fluids you should drink to prevent dehydration. If you have kidney disease, fluid can build up in the body. This can be dangerous to your health. If you have a fever, muscle aches, or a headache as a result of a cold or flu, you may take acetaminophen or ibuprofen, unless another medicine was prescribed. If you have chronic liver or kidney disease, or have ever had a stomach ulcer or gastrointestinal bleeding, talk with your healthcare provider before using these medicines. Don't take aspirin if you are younger than 18 and have a fever. Aspirin raises the chance for severe liver injury. Follow-up care Follow up with your healthcare provider, or as advised. When to seek medical advice Call your healthcare provider right away if any of these occur: Continued vomiting Frequent diarrhea (more than 5 times a day); blood (red or black color) or mucus in diarrhea Blood in vomit or stool Swollen abdomen or increasing abdominal pain Weakness, dizziness, or fainting Unusual drowsiness or confusion Reduced urine output or extreme thirst Fever of 100.4 F (38 C) or higher 58[address] [place] [address]. All rights reserved. This information is not intended as a substitute for professional medical care. Always follow yourhealthcare professional's instructions. Additional Information VACCINATE! IT SAVES LIVES! Members of the community who have not yet received the COVID-19 vaccine and would like to receive it can visit one of [facility] vaccine clinics. There are many vaccine clinic locations within the [facility]. For locations and available times, please visit www.[email or web address].[place].gov/. It is important to note that some COVID mobile vaccine clinics are held outdoors and may be canceled in rainy or stormy conditions. To learn more about pediatric vaccinations (ages 5-11), we invite you to visit the [facility] webpage. https://www.[facility].org/pages/6015-Hrcuh-Iujtysgoybs-Tetjscyxaw-Qsmpq-Phz stions.htmlTo learn more about the COVID-19 vaccine, we invite you to visit the CDC website for a list of frequently asked questions. https://www.cdc.gov/coronavirus/2019-ncov/vaccines/faq.html [facility] Patient Portal Access Instructions: Stay connected with your healthcare team and access your personal medical information anytime with the [facility] Patient Portal. If you would like a full copy of your medical records please contact the [facility] Medical Records Department Monday through Monday between 8a.m. and 4:30p.m. Please follow the directions below to access the portal: 1.Access the email account you provided upon registration to the [facility].2.Look for an invitation email from [facility].3.Open the email and access the invitation link: Accept Invitation to [facility]4.Fill in the required mancuso to create your account. Sign into www.Bensata with your username and password that you created in the above steps to stay up to date. You can then view a summary of results, a summary of your visits, and the ability to download your summaries to your computer or send the information securely to a physician. Remember that your healthcare information is confidential, so carefully consider who you will allow to register on the [facility] Patient Portal for access to your information. You can also access the [facility] Patient Portal on the Netasq. Simply click on Health Records under [employer] and then click on the [employer] logo. HOW TO SAFELY DISPOSE OF PRESCRIPTION MEDICATIONS Please use one of the following methods to safely dispose of your unused medications. 1.Use a drug disposal kit: the drug disposal pouch allows you to safely discard your old and unuseddrugs. Ask your nurse to give you one when you are discharged.2.Visit a local take-back location: Many local pharmacies and police departments have programs that collect old and unwanted prescriptiondrugs. Call your local pharmacy or go to http://[employer] Games/8I5Kp1p to find one close to you.3.Make use of household items: Use cat litter or old coffee grounds to dispose medications if other options arenot available. Mix your drugs with these household products, seal them in an airtight container andthrow it into the garbage. Call [facility]: [phone] to be sure your drugs can be disposed of in this way. Some medicines may require a different approach.4.Never flush your medications down the toilet. IF YOU HAVE BEEN PRESCRIBED AN OPIOIDS FOR PAIN If you have been prescribed an opioid (such as hydrocodone, oxycodone or morphine), it is critical to understand the possible side effects and risks of opioid pain medications. Even when taken as directed, opioids can have several side effects including: Tolerance, meaning you might need to take more of a medication for the same pain relief. Nausea, vomiting and/or constipation. Sleepiness, dizziness, dry mouth, confusion, depression or itching. Physical dependence, meaning you have withdrawal symptoms when a medication is stopped ? this can develop within a few days. KNOW YOUR RESPONSIBILITIES It is important to know exactly how much and how often to take the opioid pain medications you are prescribed. Never take opioids in higher amounts or more often than prescribed. Do not combine opioids with alcohol or other drugs that cause drowsiness, such as benzodiazepines, also known as benzos,including diazepam and alprazolam, muscle relaxants or sleep aids. Never sell or share prescriptionopioids. This is illegal. Store opioids in a secure place and out of reach of others (including children, family, friends and visitors). The last page(s) of this document has been signed and retained as a CHART COPY Signatures Patient Education Materials Dehydration (Adult) Medication Leaflets My discharge plan and instructions have been reviewed and explained to me and IMARAH DEAN A understand my current condition and have read and understand these discharge instructions. I have received a written copy of the plan/instructions. If I have questions, I am aware that I should contactmy doctor. 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 The cardiac silhouette is within normal limits. The pulmonary vasculature is within normal limits. IMPRESSION: Clear lungs. Interpreted by: Adan Membreno MD Preliminary Report By: Adan Membreno MD Electronically signed By Adan Membreno MD Dictated Date: 05/31/2023 11:55:15 AM Prelim Date: 05/31/2023 11:55:32 AM Sign Date: 05/31/2023 11:55:32 AM [facility] Sinus rhythm Electronic Signature: FELI METZ MD [facility]31[facility] Discharge instructions Patient Education 04/18/2023 03:20:40 Muscle Strain, Extremity Muscle Strain in the Extremities A muscle strain is a stretching and tearing of muscle fibers. This causes pain, especially when youmove that muscle. There may also be some swelling and bruising. Home care Keep the hurt area raised above heart level to reduce pain and swelling. This is especially important during the first 48 hours. Apply an ice pack over the injured area for 15 to 20 minutes every 3 to 6 hours. You should do thisfor the first 24 to 48 hours. You can make an ice pack by filling a plastic bag that seals at the top with ice cubes and then wrapping it with a thin towel. Be careful not to injure your skin with the ice treatments. Ice should never be applied directly to skin. Continue the use of ice packs for relief of pain and swelling as needed. After 48 hours, apply heat (warm shower or warm bath) for 15 to20 minutes several times a day, or alternate ice and heat. You may use lywv-urd-rufynjr pain medicine to control pain, unless another medicine was prescribed.If you have chronic liver or kidney disease or ever had a stomach ulcer or gastrointestinal bleeding, talk with your healthcare provider before using these medicines. For leg strains: If crutches have been recommended, don t put full weight on the hurt leg until youcan do so without pain. You can return to sports when you are able to hop and run on the injured leg without pain. Follow-up care Follow up with your healthcare provider, or as advised. When to seek medical advice Call your healthcare provider right away if any of these occur: The toes of the injured leg become swollen, cold, blue, numb, or tingly Pain or swelling increases [id number] [place] [address]. All rights reserved. This information is not intended as a substitute for professional medical care. Always follow yourhealthcare professional's instructions. Follow Up Care 04/18/2023 03:06:12 With:CHRISTIAN QUINTERO Address: [address] [place] [phone] When:2-4 days [facility] 02-20-2024 Note Discharge Instructions Thank you for allowing [facility] to assist you with your healthcare needs. The following is importantdischarge information regarding your hospital visit. Diagnosis from Today's Visit Leg pain-swelling, left Strain of muscle of lower leg What to Do Next Instructions from Your Care Team No qualifying data available. Post Acute Orders No qualifying data available. You Need to Schedule the Following Appointments Follow Up with CHRISTIAN QUINTERO When Within 2-4 days Where: [address] [place] [phone] Allergies NKA Medications Please ask your primary doctor or pharmacist before taking any other medication not listed, including over the counter drugs, herbal medications, vitamins and or supplements as they may interact withyour home medications. What How Much When Why Instructions Last Dose Unchanged acetaminophen (acetaminophen 500 mg oral capsule) 2 cap by mouth Every 4 hours as needed for for fever/pain Unchanged ARIPiprazole (ARIPiprazole 5 mg oral tablet) 1 tab(s) by mouth Once a day Unchanged donepezil (donepezil 10 mg oral tablet) 1 tab(s) by mouth Once a day Unchanged mirtazapine (mirtazapine 15 mg oral tablet) 1 tab(s) by mouth Daily at bedtime Unchanged pantoprazole (pantoprazole 40 mg oral enteric coated tablet) 1 tab(s) by mouth Once a day GERD (gastroesophageal reflux disease) Unchanged traZODone (traZODone 50 mg oral tablet) 1 tab(s) by mouth Daily at bedtime Insomnia Please take this list to your next doctor s visit. Bring all medications you take, including over the counter medications, herbals and other supplements with you to your doctor s visit. Patients and families are reminded to discard old lists and to update any records with all medication providers or retail pharmacies. Education Materials Muscle Strain in the Extremities A muscle strain is a stretching and tearing of muscle fibers. This causes pain, especially when youmove that muscle. There may also be some swelling and bruising. Home care Keep the hurt area raised above heart level to reduce pain and swelling. This is especially important during the first 48 hours. Apply an ice pack over the injured area for 15 to 20 minutes every 3 to 6 hours. You should do thisfor the first 24 to 48 hours. You can make an ice pack by filling a plastic bag that seals at the top with ice cubes and then wrapping it with a thin towel. Be careful not to injure your skin with the ice treatments. Ice should never be applied directly to skin. Continue the use of ice packs for relief of pain and swelling as needed. After 48 hours, apply heat (warm shower or warm bath) for 15 to20 minutes several times a day, or alternate ice and heat. You may use wasw-xuu-ydieiva pain medicine to control pain, unless another medicine was prescribed.If you have chronic liver or kidney disease or ever had a stomach ulcer or gastrointestinal bleeding, talk with your healthcare provider before using these medicines. For leg strains: If crutches have been recommended, don t put full weight on the hurt leg until youcan do so without pain. You can return to sports when you are able to hop and run on the injured leg without pain. Follow-up care Follow up with your healthcare provider, or as advised. When to seek medical advice Call your healthcare provider right away if any of these occur: The toes of the injured leg become swollen, cold, blue, numb, or tingly Pain or swelling increases [id number] [place] [address], [place] [address]. All rights reserved. This information is not intended as a substitute for professional medical care. Always follow yourhealthcare professional's instructions. Additional Information VACCINATE! IT SAVES LIVES! Members of the community who have not yet received the COVID-19 vaccine and would like to receive it can visit one of [facility] vaccine clinics. There are many vaccine clinic locations within the [facility]. For locations and available times, please visit www.[email or web address].[place].gov/. It is important to note that some COVID mobile vaccine clinics are held outdoors and may be canceled in rainy or stormy conditions. To learn more about pediatric vaccinations (ages 5-11), we invite you to visit the [facility] webpage. https://www.[employer].org/pages/1935-Hpylp-Lmjtiurbmno-Wfezwdqrxd-Aabse-Qhk stions.htmlTo learn more about the COVID-19 vaccine, we invite you to visit the CDC website for a list of frequently asked questions. https://www.cdc.gov/coronavirus/2019-ncov/vaccines/faq.html [facility] Patient Portal Access Instructions: Stay connected with your healthcare team and access your personal medical information anytime with the [facility] Patient Portal. If you would like a full copy of your medical records please contact the [facility] Medical Records Department Monday through Monday between 8a.m. and 4:30p.m. Please follow the directions below to access the portal: 1.Access the email account you provided upon registration to the hospital.2.Look for an invitation email from [facility].3.Open the email and access the invitation link: Accept Invitation to [facility]4.Fill in the required mancuso to create your account. Sign into www.Bensata with your username and password that you created in the above steps to stay up to date. You can then view a summary of results, a summary of your visits, and the ability to download your summaries to your computer or send the information securely to a physician. Remember that your healthcare information is confidential, so carefully consider who you will allow to register on the [employer] Patient Portal for access to your information. You can also access the [employer] [facility] Patient Portal on the Netasq. Simply click on Health Records under [employer] and then click on the [employer] logo. HOW TO SAFELY DISPOSE OF PRESCRIPTION MEDICATIONS Please use one of the following methods to safely dispose of your unused medications. 1.Use a drug disposal kit: the drug disposal pouch allows you to safely discard your old and unuseddrugs. Ask your nurse to give you one when you are discharged.2.Visit a local take-back location: Many local pharmacies and police departments have programs that collect old and unwanted prescriptiondrugs. Call your local pharmacy or go to http://[employer]/6V8We3d to find one close to you.3.Make use of household items: Use cat litter or old coffee grounds to dispose medications if other options arenot available. Mix your drugs with these household products, seal them in an airtight container andthrow it into the garbage. Call [facility]: [phone] to be sure your drugs can be disposed of in this way. Some medicines may require a different approach.4.Never flush your medications down the toilet. IF YOU HAVE BEEN PRESCRIBED AN OPIOIDS FOR PAIN If you have been prescribed an opioid (such as hydrocodone, oxycodone or morphine), it is critical to understand the possible side effects and risks of opioid pain medications. Even when taken as directed, opioids can have several side effects including: Tolerance, meaning you might need to take more of a medication for the same pain relief. Nausea, vomiting and/or constipation. Sleepiness, dizziness, dry mouth, confusion, depression or itching. Physical dependence, meaning you have withdrawal symptoms when a medication is stopped ? this can develop within a few days. KNOW YOUR RESPONSIBILITIES It is important to know exactly how much and how often to take the opioid pain medications you are prescribed. Never take opioids in higher amounts or more often than prescribed. Do not combine opioids with alcohol or other drugs that cause drowsiness, such as benzodiazepines, also known as benzos,including diazepam and alprazolam, muscle relaxants or sleep aids. Never sell or share prescriptionopioids. This is illegal. Store opioids in a secure place and out of reach of others (including children, family, friends and visitors). The last page(s) of this document has been signed and retained as a CHART COPY Signatures Patient Education Materials Muscle Strain, Extremity Medication Leaflets My discharge plan and instructions have been reviewed and explained to me and I,JAYCOB CRYSTAL understand my current condition and have read and understand these discharge instructions. I have received a written copy of the plan/instructions. If I have questions, I am aware that I should contactmy doctor. 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 Also, exposure to cold may causethe body's overall temperature to drop (hypothermia). The result can be . Step 1. Raise body temperature In case of frostbite, wrap the area in a soft, loose cloth and seek medical care right away. If medical care is not nearby, hold the affected area under warm, but not scalding, water until normal skin color returns. Don't soak affected area for prolonged time. Don`t cause additional tissue damage by rubbing the area affected by frostbite. Only try to rewarm the area if you are able to keep the person out of the cold. Warming and then refreezing will worsen the damage from frostbite. In case of hypothermia, put the victim in a sleeping bag or wrap him or her in dry blankets. Be sure to remove any wet clothing first. Step 2. Give warm liquids Give warm liquids if the person is alert and aware of his or her surroundings. Tea or hot soup are good choices. Warning: Alcohol-containing beverages can make hypothermia worse. When to seek medical help Seek medical help if any of the following is true: The person's fingers, toes, nose, or ears are numb. The affected body part looks yellow-white or patchy blue. Call 911 Call 911 right away if the victim has any of the following: Exceptionally cold skin Drowsiness, disorientation, or loss of consciousness Loss of muscle control Reassure the person and don't leave him or her alone. Keep the person as warm and dry as possible. Don't be alarmed if the person begins to shiver. Shivering is the body's way of generating heat. Treat for shock or do rescue breathing or CPR, if needed. 9128-[address] [place] [address]. All rights reserved. This information is not intended as a substitute for professional medical care. Always follow yourhealthcare professional's instructions. Follow Up Care 04/17/2023 23:30:18 With:CHRISTIAN QUINTERO Address: [address] [place] [phone] When:2-4 days [facility] 02-19-2024 Note Discharge Instructions Thank you for allowing [facility] to assist you with your healthcare needs. The following is importantdischarge information regarding your hospital visit. Diagnosis from Today's Visit fingers red and cold, concern for frostbite What to Do Next Instructions from Your Care Team No qualifying data available. Post Acute Orders No qualifying data available. You Need to Schedule the Following Appointments Follow Up with CHRISTIAN QUINTERO When Within 2-4 days Where: [address] [place] [phone] Allergies NKA Medications Please ask your primary doctor or pharmacist before taking any other medication not listed, including over the counter drugs, herbal medications, vitamins and or supplements as they may interact withyour home medications. What How Much When Why Instructions Last Dose Unchanged acetaminophen (acetaminophen 500 mg oral capsule) 2 cap by mouth Every 4 hours as needed for for fever/pain Unchanged ARIPiprazole (ARIPiprazole 5 mg oral tablet) 1 tab(s) by mouth Once a day Unchanged donepezil (donepezil 10 mg oral tablet) 1 tab(s) by mouth Once a day Unchanged mirtazapine (mirtazapine 15 mg oral tablet) 1 tab(s) by mouth Daily at bedtime Unchanged pantoprazole (pantoprazole 40 mg oral enteric coated tablet) 1 tab(s) by mouth Once a day GERD (gastroesophageal reflux disease) Unchanged traZODone (traZODone 50 mg oral tablet) 1 tab(s) by mouth Daily at bedtime Insomnia Please take this list to your next doctor s visit. Bring all medications you take, including over the counter medications, herbals and other supplements with you to your doctor s visit. Patients and families are reminded to discard old lists and to update any records with all medication providers or retail pharmacies. Education Materials First Aid: Cold Exposure Intense cold can freeze the water in the body's cells (frostbite). Also, exposure to cold may causethe body's overall temperature to drop (hypothermia). The result can be . Step 1. Raise body temperature In case of frostbite, wrap the area in a soft, loose cloth and seek medical care right away. If medical care is not nearby, hold the affected area under warm, but not scalding, water until normal skin color returns. Don't soak affected area for prolonged time. Don`t cause additional tissue damage by rubbing the area affected by frostbite. Only try to rewarm the area if you are able to keep the person out of the cold. Warming and then refreezing will worsen the damage from frostbite. In case of hypothermia, put the victim in a sleeping bag or wrap him or her in dry blankets. Be sure to remove any wet clothing first. Step 2. Give warm liquids Give warm liquids if the person is alert and aware of his or her surroundings. Tea or hot soup are good choices. Warning: Alcohol-containing beverages can make hypothermia worse. When to seek medical help Seek medical help if any of the following is true: The person's fingers, toes, nose, or ears are numb. The affected body part looks yellow-white or patchy blue. Call 911 Call 911 right away if the victim has any of the following: Exceptionally cold skin Drowsiness, disorientation, or loss of consciousness Loss of muscle control Reassure the person and don't leave him or her alone. Keep the person as warm and dry as possible. Don't be alarmed if the person begins to shiver. Shivering is the body's way of generating heat. Treat for shock or do rescue breathing or CPR, if needed. [address] [place] [address]. All rights reserved. This information is not intended as a substitute for professional medical care. Always follow yourhealthcare professional's instructions. Additional Information VACCINATE! IT SAVES LIVES! Members of the community who have not yet received the COVID-19 vaccine and would like to receive it can visit one of [facility] vaccine clinics. There are many vaccine clinic locations within the [facility]. For locations and available times, please visit [email or web address]/. It is important to note that some COVID mobile vaccine clinics are held outdoors and may be canceled in rainy or stormy conditions. To learn more about pediatric vaccinations (ages 5-11), we invite you to visit the [facility] webpage. https://www.[facility].org/pages/[email or web address]-Paugwfmqcn-Bacmr-Poa stions.htmlTo learn more about the COVID-19 vaccine, we invite you to visit the CDC website for a list of frequently asked questions. https://www.cdc.gov/coronavirus/2019-ncov/vaccines/faq.html [facility] Access Instructions: Stay connected with your healthcare team and access your personal medical information anytime with the [facility] Patient Portal. If you would like a full copy of your medical records please contact the [facility] Medical Records Department Monday through Monday between 8a.m. and 4:30p.m. Please follow the directions below to access the portal: 1.Access the email account you provided upon registration to the [facility].2.Look for an invitation email from [facility].3.Open the email and access the invitation link: Accept Invitation to [facility]4.Fill in the required mancuso to create your account. Sign into [email or web address].[email or web address] with your username and password that you created in the above steps to stay up to date. You can then view a summary of results, a summary of your visits, and the ability to download your summaries to your computer or send the information securely to a physician. Remember that your healthcare information is confidential, so carefully consider who you will allow to register on the [facility] Patient Portal for access to your information. You can also access the [facility] Patient Portal on the [employer]. Simply click on Health Records under [employer] and then click on the [employer] logo. HOW TO SAFELY DISPOSE OF PRESCRIPTION MEDICATIONS Please use one of the following methods to safely dispose of your unused medications. 1.Use a drug disposal kit: the drug disposal pouch allows you to safely discard your old and unuseddrugs. Ask your nurse to give you one when you are discharged.2.Visit a local take-back location: Many local pharmacies and police departments have programs that collect old and unwanted prescriptiondrugs. Call your local pharmacy or go to http://[employer]/[email or web address] to find one close to you.3.Make use of household items: Use cat litter or old coffee grounds to dispose medications if other options arenot available. Mix your drugs with these household products, seal them in an airtight container andthrow it into the garbage. Call [facility]: [phone] to be sure your drugs can be disposed of in this way. Some medicines may require a different approach.4.Never flush your medications down the toilet. IF YOU HAVE BEEN PRESCRIBED AN OPIOIDS FOR PAIN If you have been prescribed an opioid (such as hydrocodone, oxycodone or morphine), it is critical to understand the possible side effects and risks of opioid pain medications. Even when taken as directed, opioids can have several side effects including: Tolerance, meaning you might need to take more of a medication for the same pain relief. Nausea, vomiting and/or constipation. Sleepiness, dizziness, dry mouth, confusion, depression or itching. Physical dependence, meaning you have withdrawal symptoms when a medication is stopped ? this can develop within a few days. KNOW YOUR RESPONSIBILITIES It is important to know exactly how much and how often to take the opioid pain medications you are prescribed. Never take opioids in higher amounts or more often than prescribed. Do not combine opioids with alcohol or other drugs that cause drowsiness, such as benzodiazepines, also known as benzos,including diazepam and alprazolam, muscle relaxants or sleep aids. Never sell or share prescriptionopioids. This is illegal. Store opioids in a secure place and out of reach of others (including children, family, friends and visitors). The last page(s) of this document has been signed and retained as a CHART COPY Signatures Patient Education Materials First Aid: Cold Exposure Medication Leaflets My discharge plan and instructions have been reviewed and explained to me and I,JAYCOB CRYSTAL understand my current condition and have read and understand these discharge instructions. I have received a written copy of the plan/instructions. If I have questions, I am aware that I should contactmy doctor. 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 Deep cuts usually require stitches. Minor cuts may be closed with surgical tape or skin adhesive. X-rays may be done if something may have entered the skin through the cut, such as broken glass. You may also be given a tetanus shot if you are not up to date on this vaccination and the object thatcut you may carry tetanus. Home care Your healthcare provider may prescribe an antibiotic. This is to help prevent infection. Follow allinstructions for taking this medicine. Take the medicine every day until it is gone or you are toldto stop. You should not have any left over. The healthcare provider may prescribe medicines for pain. Follow instructions for taking them. Follow the healthcare provider s instructions on how to care for the cut. Keep the wound clean and dry. Don't get the wound wet until you are told it is OK to do so. If the bandage gets wet, remove it. Gently pat the wound dry with a clean cloth. Then put on a clean, dry bandage. To help prevent infection, wash your hands with soap and water before and after caring for the wound. Caring for stiches: Once you no longer need to keep the stitches dry, clean the wound daily. First,remove the bandage. Then wash the area gently with soap and warm water, or as directed by the healthcare provider. Use a wet cotton swab to loosen and remove any blood or crust that forms. After cleaning, apply a thin layer of antibiotic ointment if advised. Then put on a new bandage unless you aretold not to. Caring for skin glue: Don t put apply liquid, ointment, or cream on the wound while the glue is in place. Avoid activities that cause heavy sweating. Protect the wound from sunlight. Don't scratch, rub, or pick at the adhesive film. Don't place tape directly over the film. The glue should peel off within 5 to 10 days. Caring for surgical tape: Keep the area dry. If it gets wet, blot it dry with a clean towel. Surgical tape usually falls off within 7 to 10 days. If it has not fallen off after 10 days, you can take it off yourself. Put mineral oil or petroleum jelly on a cotton ball and gently rub the tape until it is removed. Once you can get the wound wet, you may shower as usual, but don't soak the wound in water. This means no tub baths or swimming. Even with proper treatment, a wound infection may sometimes occur. Check the wound daily for signs of infection listed below. Follow-up care Follow up with your healthcare provider, or as advised. If you have stitches, be sure to return as directed to have them removed. When to seek medical advice Call your healthcare provider right away if any of these occur: Wound bleeding not controlled by direct pressure Signs of infection, including increasing pain in the wound, increasing wound redness or swelling, or pus or bad odor coming from the wound Fever of 100.4 F (38. C) o higher, or as directed by your healthcare provider Stitches come apart or fall out or surgical tape falls off before 7 days Wound edges reopen Wound changes colors Numbness or weakness in the affected hand Decreased movement of the hand [address] [place] [address]. All rights reserved. This information is not intended as a substitute for professional medical care. Always follow yourhealthcare professional's instructions. Follow Up Care 04/12/2023 18:48:30 With:CHRISTIAN QUINTERO Address: [address] [place] [address] [phone] Business (1) When:Within 1 Week(s) Comments:Follow-up as needed.Daily wound care with apllication of topical antibiotic ointment.Tylenol or Advil for pain as needed.Watch for signs of infection.Return for any problems. [facility] 02-14-2024 Emergency department Discharge summary Discharge Instructions Thank you for allowing [facility] to assist you with your healthcare needs. The following is importantdischarge information regarding your hospital visit. Diagnosis from Today's Visit Hand injury - Minor What to Do Next Instructions from Your Care Team No qualifying data available. Post Acute Orders No qualifying data available. You Need to Schedule the Following Appointments Follow Up with CHRISTIAN QUINTERO When In 1 week Why: Follow-up as needed. Daily wound care with apllication of topical antibiotic ointment. Tylenol or Advil for pain as needed. Watch for signs of infection. Return for any problems. Where: [address] [place] [phone] Business (1) Allergies NKA Medications Please ask your primary doctor or pharmacist before taking any other medication not listed, including over the counter drugs, herbal medications, vitamins and or supplements as they may interact withyour home medications. What How Much When Why Instructions Last Dose Unchanged acetaminophen (acetaminophen 500 mg oral capsule) 2 cap by mouth Every 4 hours as needed for for fever/pain Unchanged ARIPiprazole (ARIPiprazole 5 mg oral tablet) 1 tab(s) by mouth Once a day Unchanged donepezil (donepezil 10 mg oral tablet) 1 tab(s) by mouth Once a day Unchanged mirtazapine (mirtazapine 15 mg oral tablet) 1 tab(s) by mouth Daily at bedtime Unchanged pantoprazole (pantoprazole 40 mg oral enteric coated tablet) 1 tab(s) by mouth Once a day GERD (gastroesophageal reflux disease) Unchanged traZODone (traZODone 50 mg oral tablet) 1 tab(s) by mouth Daily at bedtime Insomnia Please take this list to your next doctor s visit. Bring all medications you take, including over the counter medications, herbals and other supplements with you to your doctor s visit. Patients and families are reminded to discard old lists and to update any records with all medication providers or retail pharmacies. Education Materials Hand Laceration: All Closures A laceration is a cut through the skin. Deep cuts usually require stitches. Minor cuts may be closed with surgical tape or skin adhesive. X-rays may be done if something may have entered the skin through the cut, such as broken glass. You may also be given a tetanus shot if you are not up to date on this vaccination and the object thatcut you may carry tetanus. Home care Your healthcare provider may prescribe an antibiotic. This is to help prevent infection. Follow allinstructions for taking this medicine. Take the medicine every day until it is gone or you are toldto stop. You should not have any left over. The healthcare provider may prescribe medicines for pain. Follow instructions for taking them. Follow the healthcare provider s instructions on how to care for the cut. Keep the wound clean and dry. Don't get the wound wet until you are told it is OK to do so. If the bandage gets wet, remove it. Gently pat the wound dry with a clean cloth. Then put on a clean, dry bandage. To help prevent infection, wash your hands with soap and water before and after caring for the wound. Caring for stiches: Once you no longer need to keep the stitches dry, clean the wound daily. First,remove the bandage. Then wash the area gently with soap and warm water, or as directed by the healthcare provider. Use a wet cotton swab to loosen and remove any blood or crust that forms. After cleaning, apply a thin layer of antibiotic ointment if advised. Then put on a new bandage unless you aretold not to. Caring for skin glue: Don t put apply liquid, ointment, or cream on the wound while the glue is in place. Avoid activities that cause heavy sweating. Protect the wound from sunlight. Don't scratch, rub, or pick at the adhesive film. Don't place tape directly over the film. The glue should peel off within 5 to 10 days. Caring for surgical tape: Keep the area dry. If it gets wet, blot it dry with a clean towel. Surgical tape usually falls off within 7 to 10 days. If it has not fallen off after 10 days, you can take it off yourself. Put mineral oil or petroleum jelly on a cotton ball and gently rub the tape until it is removed. Once you can get the wound wet, you may shower as usual, but don't soak the wound in water. This means no tub baths or swimming. Even with proper treatment, a wound infection may sometimes occur. Check the wound daily for signs of infection listed below. Follow-up care Follow up with your healthcare provider, or as advised. If you have stitches, be sure to return as directed to have them removed. When to seek medical advice Call your healthcare provider right away if any of these occur: Wound bleeding not controlled by direct pressure Signs of infection, including increasing pain in the wound, increasing wound redness or swelling, or pus or bad odor coming from the wound Fever of 100.4 F (38. C) o higher, or as directed by your healthcare provider Stitches come apart or fall out or surgical tape falls off before 7 days Wound edges reopen Wound changes colors Numbness or weakness in the affected hand Decreased movement of the hand [phone] [place] [address]. All rights reserved. This information is not intended as a substitute for professional medical care. Always follow yourhealthcare professional's instructions. Additional Information VACCINATE! IT SAVES LIVES! Members of the community who have not yet received the COVID-19 vaccine and would like to receive it can visit one of [facility] vaccine clinics. There are many vaccine clinic locations within the [facility]. For locations and available times, please visit [email or web address]/. It is important to note that some COVID mobile vaccine clinics are held outdoors and may be canceled in rainy or stormy conditions. To learn more about pediatric vaccinations (ages 5-11), we invite you to visit the [facility] webpage. https://www.[facility].org/pages/[email or web address]-Turxu-Rkisekwzfwl-Ajtzxfdjsa-Dodgc-Plm stions.htmlTo learn more about the COVID-19 vaccine, we invite you to visit the CDC website for a list of frequently asked questions. https://www.cdc.gov/coronavirus/2019-ncov/vaccines/faq.html [facility] Patient Portal Access Instructions: Stay connected with your healthcare team and access your personal medical information anytime with the [facility] Patient Portal. If you would like a full copy of your medical records please contact the [facility] Medical Records Department Monday through Monday between 8a.m. and 4:30p.m. Please follow the directions below to access the portal: 1.Access the email account you provided upon registration to the [facility].2.Look for an invitation email from [facility].3.Open the email and access the invitation link: Accept Invitation to [facility]4.Fill in the required mancuso to create your account. Sign into www.B[employer] with your username and password that you created in the above steps to stay up to date. You can then view a summary of results, a summary of your visits, and the ability to download your summaries to your computer or send the information securely to a physician. Remember that your healthcare information is confidential, so carefully consider who you will allow to register on the [facility] Patient Portal for access to your information. You can also access the [facility] Patient Portal on the [employer]. Simply click on Health Records under [employer] and then click on the [employer] logo. HOW TO SAFELY DISPOSE OF PRESCRIPTION MEDICATIONS Please use one of the following methods to safely dispose of your unused medications. 1.Use a drug disposal kit: the drug disposal pouch allows you to safely discard your old and unuseddrugs. Ask your nurse to give you one when you are discharged.2.Visit a local take-back location: Many local pharmacies and police departments have programs that collect old and unwanted prescriptiondrugs. Call your local pharmacy or go to http://[employer]/7H7Tq5a to find one close to you.3.Make use of household items: Use cat litter or old coffee grounds to dispose medications if other options arenot available. Mix your drugs with these household products, seal them in an airtight container andthrow it into the garbage. Call [facility]: [phone] to be sure your drugs can be disposed of in this way. Some medicines may require a different approach.4.Never flush your medications down the toilet. IF YOU HAVE BEEN PRESCRIBED AN OPIOIDS FOR PAIN If you have been prescribed an opioid (such as hydrocodone, oxycodone or morphine), it is critical to understand the possible side effects and risks of opioid pain medications. Even when taken as directed, opioids can have several side effects including: Tolerance, meaning you might need to take more of a medication for the same pain relief. Nausea, vomiting and/or constipation. Sleepiness, dizziness, dry mouth, confusion, depression or itching. Physical dependence, meaning you have withdrawal symptoms when a medication is stopped ? this can develop within a few days. KNOW YOUR RESPONSIBILITIES It is important to know exactly how much and how often to take the opioid pain medications you are prescribed. Never take opioids in higher amounts or more often than prescribed. Do not combine opioids with alcohol or other drugs that cause drowsiness, such as benzodiazepines, also known as benzos,including diazepam and alprazolam, muscle relaxants or sleep aids. Never sell or share prescriptionopioids. This is illegal. Store opioids in a secure place and out of reach of others (including children, family, friends and visitors). The last page(s) of this document has been signed and retained as a CHART COPY Signatures Patient Education Materials Mikael Reyes: All Closures Medication Leaflets My discharge plan and instructions have been reviewed and explained to me and I,JAYCOB CRYSTAL understand my current condition and have read and understand these discharge instructions. I have received a written copy of the plan/instructions. If I have questions, I am aware that I should contactmy doctor. 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 This commonly happens after a fall or other injury. It also tends to be more common in older people, or those taking blood thinners or steroids for long periods of time. Home care These guidelines will help you care for your wound at home: Keep the wound clean and dry for the first 24 to 48 hours, or as your healthcare provider advises. If there is a dressing or bandage, change it when it gets wet or dirty. Otherwise, leave it on for the first 24 hours, then change it once a day or as often as the doctor says. If stitches or jordin were used, check the wound every day. After taking off the dressing, wash the area gently with soap and water. Clean as close to the stitches as you can. Avoid washing or rubbing the stitches directly. After 3 days you can keep the bandages off the wound, unless told otherwise, or there is continued drainage. Allow the wound to be open to the air. Keep a thin layer of antibiotic ointment on the cut. This will keep the wound clean, make it easierto remove the stitches, and reduce scarring. If your wound is oozing, you can put a nonstick dressing over it. Then, reapply the bandage or dressing as you were told. You can shower as usual after the first 24 hours, but don't soak the area in water (no baths or swimming) until the stitches or jordin are taken out. If surgical tape was used, keep the area clean and dry. If it becomes wet, blot it dry with a cleantowel. If skin glue was used, don't put any creams, lotions, or antibiotic ointments on it. These can dissolve the glue. Usually the glue will flake off in about 5 to 10 days by itself. Try to resist picking it off before that so the wound doesn't open up. When it gets wet, pat it dry. Here is some information about medicine: You may use kyhf-mlx-nfrgjsj medicine such as acetaminophen or ibuprofen to control pain, unless another pain medicine was given. If you have chronic liver or kidney disease or ever had a stomach ulcer or gastrointestinal bleeding, talk with your doctor before using these medicines. If you were given antibiotics, take them until they are all used up. It is important to finish the antibiotics even if the wound looks better. This will ensure that the infection has cleared. Follow-up care Follow up with your healthcare provider, or as advised. Watch for any signs of infection, such as increasing redness, swelling, or pus coming out. If this happens, don't wait for your scheduled visit. Instead, see a doctor sooner. Stitches or jordin are usually taken out within 5 to 14 days. This varies depending on what part of your body they are on, and the type of wound. The doctor will tell you how long stitches should beleft in. If surgical tape was used, it is usually left on for 7 to 10 days. You can remove surgical tape after that unless you were told otherwise. If you try to remove it, and it is too hard, soaking can help. Surgical tape strips will eventually fall off on their own. If the edges of the cut pull apart, stop removing the tape or strips and follow up with your doctor As mentioned above, skin glue will flake off by itself in 5 to 10 days, so you don't need to pull it off. If any X-rays were done, you will be notified of any changes that may affect your care. When to seek medical advice Call your healthcare provider right away if any of these occur: Increasing pain in the wound Redness, swelling, or pus coming from the wound Fever of 100.4 F (38 C) or higher, or as directed by your healthcare provider Sutures or jordin come apart or fall out before your next appointment and the wound edges look as if they will re-open Surgical tape closures fall off before 7 days, and the wound edges look as if they will re-open Bleeding not controlled by direct pressure [id number] [place] [address], [place] [address]. All rights reserved. This information is not intended as a substitute for professional medical care. Always follow yourhealthcare professional's instructions. Follow Up Care 04/12/2023 05:04:47 With:CHRISTIAN QUINTERO Address: [address] [place] [phone] Business (1) When:Within 1 Week(s) Comments:Follow-up as needed.Daily wound care with application of topical antibiotic ointment and dressing changes.Watch for signs of infection.Return to the ED for any problems or concerns. [facility] 02-14-2024 Note Discharge Instructions Thank you for allowing [facility] to assist you with your healthcare needs. The following is importantdischarge information regarding your hospital visit. Diagnosis from Today's Visit Fall Finger injury - Minor What to Do Next Instructions from Your Care Team No qualifying data available. Post Acute Orders No qualifying data available. You Need to Schedule the Following Appointments Follow Up with CHRISTIAN QUINTERO When In 1 week Why: Follow-up as needed. Daily wound care with application of topical antibiotic ointment and dressing changes. Watch for signs of infection. Return to the ED for any problems or concerns. Where: [address] [place] [phone] Business (1) Allergies [facility] Medications Please ask your primary doctor or pharmacist before taking any other medication not listed, including over the counter drugs, herbal medications, vitamins and or supplements as they may interact withyour home medications. What How Much When Why Instructions Last Dose Unchanged acetaminophen (acetaminophen 500 mg oral capsule) 2 cap by mouth Every 4 hours as needed for for fever/pain Unchanged ARIPiprazole (ARIPiprazole 5 mg oral tablet) 1 tab(s) by mouth Once a day Unchanged donepezil (donepezil 10 mg oral tablet) 1 tab(s) by mouth Once a day Unchanged mirtazapine (mirtazapine 15 mg oral tablet) 1 tab(s) by mouth Daily at bedtime Unchanged pantoprazole (pantoprazole 40 mg oral enteric coated tablet) 1 tab(s) by mouth Once a day GERD (gastroesophageal reflux disease) Unchanged traZODone (traZODone 50 mg oral tablet) 1 tab(s) by mouth Daily at bedtime Insomnia Please take this list to your next doctor s visit. Bring all medications you take, including over the counter medications, herbals and other supplements with you to your doctor s visit. Patients and families are reminded to discard old lists and to update any records with all medication providers or retail pharmacies. Education Materials Skin Tear (Skin Avulsion) A skin avulsion is a tearing of the top layer of skin. This commonly happens after a fall or other injury. It also tends to be more common in older people, or those taking blood thinners or steroids for long periods of time. Home care These guidelines will help you care for your wound at home: Keep the wound clean and dry for the first 24 to 48 hours, or as your healthcare provider advises. If there is a dressing or bandage, change it when it gets wet or dirty. Otherwise, leave it on for the first 24 hours, then change it once a day or as often as the doctor says. If stitches or jordin were used, check the wound every day. After taking off the dressing, wash the area gently with soap and water. Clean as close to the stitches as you can. Avoid washing or rubbing the stitches directly. After 3 days you can keep the bandages off the wound, unless told otherwise, or there is continued drainage. Allow the wound to be open to the air. Keep a thin layer of antibiotic ointment on the cut. This will keep the wound clean, make it easierto remove the stitches, and reduce scarring. If your wound is oozing, you can put a nonstick dressing over it. Then, reapply the bandage or dressing as you were told. You can shower as usual after the first 24 hours, but don't soak the area in water (no baths or swimming) until the stitches or jordin are taken out. If surgical tape was used, keep the area clean and dry. If it becomes wet, blot it dry with a cleantowel. If skin glue was used, don't put any creams, lotions, or antibiotic ointments on it. These can dissolve the glue. Usually the glue will flake off in about 5 to 10 days by itself. Try to resist picking it off before that so the wound doesn't open up. When it gets wet, pat it dry. Here is some information about medicine: You may use sipe-nzp-hmumbsq medicine such as acetaminophen or ibuprofen to control pain, unless another pain medicine was given. If you have chronic liver or kidney disease or ever had a stomach ulcer or gastrointestinal bleeding, talk with your doctor before using these medicines. If you were given antibiotics, take them until they are all used up. It is important to finish the antibiotics even if the wound looks better. This will ensure that the infection has cleared. Follow-up care Follow up with your healthcare provider, or as advised. Watch for any signs of infection, such as increasing redness, swelling, or pus coming out. If this happens, don't wait for your scheduled visit. Instead, see a doctor sooner. Stitches or jordin are usually taken out within 5 to 14 days. This varies depending on what part of your body they are on, and the type of wound. The doctor will tell you how long stitches should beleft in. If surgical tape was used, it is usually left on for 7 to 10 days. You can remove surgical tape after that unless you were told otherwise. If you try to remove it, and it is too hard, soaking can help. Surgical tape strips will eventually fall off on their own. If the edges of the cut pull apart, stop removing the tape or strips and follow up with your doctor As mentioned above, skin glue will flake off by itself in 5 to 10 days, so you don't need to pull it off. If any X-rays were done, you will be notified of any changes that may affect your care. When to seek medical advice Call your healthcare provider right away if any of these occur: Increasing pain in the wound Redness, swelling, or pus coming from the wound Fever of 100.4 F (38 C) or higher, or as directed by your healthcare provider Sutures or jordin come apart or fall out before your next appointment and the wound edges look as if they will re-open Surgical tape closures fall off before 7 days, and the wound edges look as if they will re-open Bleeding not controlled by direct pressure [id number] [place] [address], [place] [address]. All rights reserved. This information is not intended as a substitute for professional medical care. Always follow yourhealthcare professional's instructions. Additional Information VACCINATE! IT SAVES LIVES! Members of the community who have not yet received the COVID-19 vaccine and would like to receive it can visit one of [facility] vaccine clinics. There are many vaccine clinic locations within the [facility]. For locations and available times, please visit [email or web address] It is important to note that some COVID mobile vaccine clinics are held outdoors and may be canceled in rainy or stormy conditions. To learn more about pediatric vaccinations (ages 5-11), we invite you to visit the [facility] webpage. [email or web address] [email or web address] learn more about the COVID-19 vaccine, we invite you to visit the CDC website for a list of frequently asked questions. https://www.cdc.gov/coronavirus/2019-ncov/vaccines/faq.html [facility] Patient Portal Access Instructions: Stay connected with your healthcare team and access your personal medical information anytime with the [facility] Patient Portal. If you would like a full copy of your medical records please contact the [facility] Medical Records Department Monday through Monday between 8a.m. and 4:30p.m. Please follow the directions below to access the portal: 1.Access the email account you provided upon registration to the [facility].2.Look for an invitation email from [facility].3.Open the email and access the invitation link: Accept Invitation to [facility]4.Fill in the required amncuso to create your account. Sign into www.Bens[employer] with your username and password that you created in the above steps to stay up to date. You can then view a summary of results, a summary of your visits, and the ability to download your summaries to your computer or send the information securely to a physician. Remember that your healthcare information is confidential, so carefully consider who you will allow to register on the [facility] Patient Portal for access to your information. You can also access the [facility] Patient Portal on the [employer]. Simply click on Health Records under [employer] and then click on the [employer] logo. HOW TO SAFELY DISPOSE OF PRESCRIPTION MEDICATIONS Please use one of the following methods to safely dispose of your unused medications. 1.Use a drug disposal kit: the drug disposal pouch allows you to safely discard your old and unuseddrugs. Ask your nurse to give you one when you are discharged.2.Visit a local take-back location: Many local pharmacies and police departments have programs that collect old and unwanted prescriptiondrugs. Call your local pharmacy or go to [email or web address]/3F0Wh4c to find one close to you.3.Make use of household items: Use cat litter or old coffee grounds to dispose medications if other options arenot available. Mix your drugs with these household products, seal them in an airtight container andthrow it into the garbage. Call [facility]: [phone] to be sure your drugs can be disposed of in this way. Some medicines may require a different approach.4.Never flush your medications down the toilet. IF YOU HAVE BEEN PRESCRIBED AN OPIOIDS FOR PAIN If you have been prescribed an opioid (such as hydrocodone, oxycodone or morphine), it is critical to understand the possible side effects and risks of opioid pain medications. Even when taken as directed, opioids can have several side effects including: Tolerance, meaning you might need to take more of a medication for the same pain relief. Nausea, vomiting and/or constipation. Sleepiness, dizziness, dry mouth, confusion, depression or itching. Physical dependence, meaning you have withdrawal symptoms when a medication is stopped ? this can develop within a few days. KNOW YOUR RESPONSIBILITIES It is important to know exactly how much and how often to take the opioid pain medications you are prescribed. Never take opioids in higher amounts or more often than prescribed. Do not combine opioids with alcohol or other drugs that cause drowsiness, such as benzodiazepines, also known as benzos,including diazepam and alprazolam, muscle relaxants or sleep aids. Never sell or share prescriptionopioids. This is illegal. Store opioids in a secure place and out of reach of others (including children, family, friends and visitors). The last page(s) of this document has been signed and retained as a CHART COPY Signatures Patient Education Materials Skin Avulsion Medication Leaflets My discharge plan and instructions have been reviewed and explained to me and I,JAYCOB CRYSTAL understand my current condition and have read and understand these discharge instructions. I have received a written copy of the plan/instructions. If I have questions, I am aware that I should contactmy doctor. 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 It is not just a state of unhappiness or sadness. It is a true disease. The cause seems to be related to a decrease in chemicals that transmit signals in the brain. Having a family history of depression, alcoholism, or suicide increases the risk. Chronic illness, chronic pain, migraine headaches, and high emotional stress also increase the risk. Depression is something we tend to recognize in others, but may have a hard time seeing in ourselves. It can show in many physical and emotional ways: Loss of appetite Overeating Not being able to sleep Sleeping too much Tiredness not related to physical exertion Restlessness or irritability Slowness of movement or speech Feeling depressed or withdrawn Loss of interest in things you once enjoyed Trouble concentrating, poor memory, trouble making decisions Thoughts of harming or killing oneself, or thoughts that life is not worth living Low self-esteem The treatment for depression may include both medicine and psychotherapy. Antidepressants can reduce suffering and can improve the ability to function during the depressed period. Therapy can offer emotional support and help you understand emotional factors that may be causing the depression. Home care Ongoing care and support help people manage this disease. Find a healthcare provider and therapist who meet your needs. Seek help when you feel like you may be getting ill. Be kind to yourself. Make it a point to do things that you enjoy (gardening, walking in nature, going to a movie). Reward yourself for small successes. Take care of your physical body. Eat a balanced diet (low in saturated fat and high in fruits and vegetables). Exercise at least 3 times a week for 30 minutes. Even mild-moderate exercise (like briskwalking) can make you feel better. Don't drink alcohol, which can make depression worse. Take medicine as prescribed. Tell each of your healthcare providers about all of the prescription and dhbb-wvt-rodmxsd medicines, vitamins, and supplements you take. Certain supplements interact with medicines and can result in dangerous side effects. Ask your pharmacist when you have questions about medicine interactions. Talk with your family and trusted friends about your feelings and thoughts. Ask them to help you recognize behavior changes early so you can get help and, if needed, medicine can be adjusted. Follow-up care Follow up with your healthcare provider, or as advised. Call 911 Call 911 if you: Have suicidal thoughts, a suicide plan, and the means to carry out the plan; or serious thoughts ofhurting someone else Have trouble breathing Are very confused Feel very drowsy or have trouble awakening Faint or lose consciousness Have new chest pain that becomes more severe, lasts longer, or spreads into your shoulder, arm, neck, jaw, or back When to seek medical advice Call your healthcare provider right away if any of these happen: Feeling extreme depression, fear, anxiety, or anger toward yourself or others Feeling out of control Feeling that you may try to harm yourself or another Hearing voices that others do not hear Seeing things that others do not see Can t sleep or eat for 3 days in a row Friends or family express concern over your behavior and ask you to seek help [id number] [place] [address], [place] [address]. All rights reserved. This information is not intended as a substitute for professional medical care. Always follow yourhealthcare professional's instructions. Follow Up Care 04/09/2023 03:19:13 With:[facility] Address: When:2-4 days [facility] 02-11-2024 Note Discharge Instructions Thank you for allowing [facility] to assist you with your healthcare needs. The following is importantdischarge information regarding your hospital visit. Diagnosis from Today's Visit Medical screening exam What to Do Next Instructions from Your Care Team No qualifying data available. Post Acute Orders No qualifying data available. You Need to Schedule the Following Appointments Follow Up with [facility] When Within 2-4 days Where: Allergies [facility] Medications Please ask your primary doctor or pharmacist before taking any other medication not listed, including over the counter drugs, herbal medications, vitamins and or supplements as they may interact withyour home medications. Please take this list to your next doctor s visit. Bring all medications you take, including over the counter medications, herbals and other supplements with you to your doctor s visit. Patients and families are reminded to discard old lists and to update any records with all medication providers or retail pharmacies. Education Materials Depression Depression is one of the most common mental health problems today. It is not just a state of unhappiness or sadness. It is a true disease. The cause seems to be related to a decrease in chemicals that transmit signals in the brain. Having a family history of depression, alcoholism, or suicide increases the risk. Chronic illness, chronic pain, migraine headaches, and high emotional stress also increase the risk. Depression is something we tend to recognize in others, but may have a hard time seeing in ourselves. It can show in many physical and emotional ways: Loss of appetite Overeating Not being able to sleep Sleeping too much Tiredness not related to physical exertion Restlessness or irritability Slowness of movement or speech Feeling depressed or withdrawn Loss of interest in things you once enjoyed Trouble concentrating, poor memory, trouble making decisions Thoughts of harming or killing oneself, or thoughts that life is not worth living Low self-esteem The treatment for depression may include both medicine and psychotherapy. Antidepressants can reduce suffering and can improve the ability to function during the depressed period. Therapy can offer emotional support and help you understand emotional factors that may be causing the depression. Home care Ongoing care and support help people manage this disease. Find a healthcare provider and therapist who meet your needs. Seek help when you feel like you may be getting ill. Be kind to yourself. Make it a point to do things that you enjoy (gardening, walking in nature, going to a movie). Reward yourself for small successes. Take care of your physical body. Eat a balanced diet (low in saturated fat and high in fruits and vegetables). Exercise at least 3 times a week for 30 minutes. Even mild-moderate exercise (like briskwalking) can make you feel better. Don't drink alcohol, which can make depression worse. Take medicine as prescribed. Tell each of your healthcare providers about all of the prescription and nfnv-fep-apxqeur medicines, vitamins, and supplements you take. Certain supplements interact with medicines and can result in dangerous side effects. Ask your pharmacist when you have questions about medicine interactions. Talk with your family and trusted friends about your feelings and thoughts. Ask them to help you recognize behavior changes early so you can get help and, if needed, medicine can be adjusted. Follow-up care Follow up with your healthcare provider, or as advised. Call 911 Call 911 if you: Have suicidal thoughts, a suicide plan, and the means to carry out the plan; or serious thoughts ofhurting someone else Have trouble breathing Are very confused Feel very drowsy or have trouble awakening Faint or lose consciousness Have new chest pain that becomes more severe, lasts longer, or spreads into your shoulder, arm, neck, jaw, or back When to seek medical advice Call your healthcare provider right away if any of these happen: Feeling extreme depression, fear, anxiety, or anger toward yourself or others Feeling out of control Feeling that you may try to harm yourself or another Hearing voices that others do not hear Seeing things that others do not see Can t sleep or eat for 3 days in a row Friends or family express concern over your behavior and ask you to seek help [phone] [place] [address], [place] [address]. All rights reserved. This information is not intended as a substitute for professional medical care. Always follow yourhealthcare professional's instructions. Additional Information VACCINATE! IT SAVES LIVES! Members of the community who have not yet received the COVID-19 vaccine and would like to receive it can visit one of [facility] vaccine clinics. There are many vaccine clinic locations within the [facility]. For locations and available times, please visit [email or web address]/. It is important to note that some COVID mobile vaccine clinics are held outdoors and may be canceled in rainy or stormy conditions. To learn more about pediatric vaccinations (ages 5-11), we invite you to visit the [facility] webpage. https://www.[email or web address]/pages/[email or web address]-Qerib-Xfltvmmjjvi-Uhhmprbsau-[email or web address]-Knp stions.htmlTo learn more about the COVID-19 vaccine, we invite you to visit the CDC website for a list of frequently asked questions. https://www.cdc.gov/coronavirus/2019-ncov/vaccines/faq.html [facility] Patient Portal Access Instructions: Stay connected with your healthcare team and access your personal medical information anytime with the [facility] Patient Portal. If you would like a full copy of your medical records please contact the [facility] Medical Records Department Monday through Monday between 8a.m. and 4:30p.m. Please follow the directions below to access the portal: 1.Access the email account you provided upon registration to the [facility].2.Look for an invitation email from [facility].3.Open the email and access the invitation link: Accept Invitation to [facility]4.Fill in the required mancuso to create your account. Sign into [email or web address] with your username and password that you created in the above steps to stay up to date. You can then view a summary of results, a summary of your visits, and the ability to download your summaries to your computer or send the information securely to a physician. Remember that your healthcare information is confidential, so carefully consider who you will allow to register on the [facility] Patient Portal for access to your information. You can also access the [facility] Patient Portal on the [employer] radha. Simply click on Health Records under [employer] and then click on the [facility] logo. HOW TO SAFELY DISPOSE OF PRESCRIPTION MEDICATIONS Please use one of the following methods to safely dispose of your unused medications. 1.Use a drug disposal kit: the drug disposal pouch allows you to safely discard your old and unuseddrugs. Ask your nurse to give you one when you are discharged.2.Visit a local take-back location: Many local pharmacies and police departments have programs that collect old and unwanted prescriptiondrugs. Call your local pharmacy or go to http://[employer]Juice[employer] Games/9T2Jn9r to find one close to you.3.Make use of household items: Use cat litter or old coffee grounds to dispose medications if other options arenot available. Mix your drugs with these household products, seal them in an airtight container andthrow it into the garbage. Call [facility]: [phone] to be sure your drugs can be disposed of in this way. Some medicines may require a different approach.4.Never flush your medications down the toilet. IF YOU HAVE BEEN PRESCRIBED AN OPIOIDS FOR PAIN If you have been prescribed an opioid (such as hydrocodone, oxycodone or morphine), it is critical to understand the possible side effects and risks of opioid pain medications. Even when taken as directed, opioids can have several side effects including: Tolerance, meaning you might need to take more of a medication for the same pain relief. Nausea, vomiting and/or constipation. Sleepiness, dizziness, dry mouth, confusion, depression or itching. Physical dependence, meaning you have withdrawal symptoms when a medication is stopped ? this can develop within a few days. KNOW YOUR RESPONSIBILITIES It is important to know exactly how much and how often to take the opioid pain medications you are prescribed. Never take opioids in higher amounts or more often than prescribed. Do not combine opioids with alcohol or other drugs that cause drowsiness, such as benzodiazepines, also known as benzos,including diazepam and alprazolam, muscle relaxants or sleep aids. Never sell or share prescriptionopioids. This is illegal. Store opioids in a secure place and out of reach of others (including children, family, friends and visitors). The last page(s) of this document has been signed and retained as a CHART COPY Signatures Patient Education Materials Depression Medication Leaflets My discharge plan and instructions have been reviewed and explained to me and I,JAYCOB CRYSTAL understand my current condition and have read and understand these discharge instructions. I have received a written copy of the plan/instructions. If I have questions, I am aware that I should contactmy doctor. 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 Apprentice Signature: Date/Time: Relationship to Patient: Witness Name/Signature: Date/Time: [facility]02-11-2024 NoteSinus rhythm Right axis deviation Baseline wander in lead(s) V5 Electronic Signature: JENNIFER FRANKS MD 04/09/2023 06:05:59[facility] 12-27-2023 Hospital Discharge instructions Patient Education 02/22/2023 15:30:11 Weakness (Uncertain Cause) Weakness with Uncertain Cause Based on your exam today, the exact cause of your weakness is not certain. But your weakness does not seem to be a sign of a serious illness at this time. Keep an eye on your symptoms and get medicaladvice as instructed below. Home care Rest at home today. Don't over-exert yourself. Take any medicine as prescribed. For the next few days, drink extra fluids (unless your healthcare provider wants you to restrict fluids for other reasons). Don't skip meals. Unless otherwise directed, continue to take any prescription medicines. Contact your healthcare provider if you have any questions or concerns. Follow-up care Follow up with your healthcare provider, or as advised. When to seek medical advice Call your healthcare provider right away for any of the following: Symptoms get worse Symptoms don't start getting better within 2 days Fever of 100.4 F (38 C) or higher, or as directed by your healthcare provider Call 911 Call 911 for any of these: Chest, arm, neck, jaw, or upper back pain Trouble breathing Numbness or weakness of the face, one arm, or one leg Slurred speech, confusion, or trouble speaking, walking, or seeing Blood in vomit or stool (black or red color) Loss of consciousness Severe headache [address] [place] [address], [place] [address]. All rights reserved. This information is not intended as a substitute for professional medical care. Always follow yourpomerene hospitalcare professional's instructions. Follow Up Care 02/22/2023 13:57:33 With:CHRISTIAN QUINTERO Address: [address] [place] [phone] When:2-4 days [facility] 12-27-2023 Note Discharge Instructions Thank you for allowing [facility] to assist you with your healthcare needs. The following is importantdischarge information regarding your hospital visit. Diagnosis from Today's Visit Weakness or fatigue What to Do Next Instructions from Your Care Team Follow-up with your PCP in the next 2 to 4 days. Please return to the emergency department if start experiencing worsening weakness or any signs of suicidal ideation. No qualifying data available. Post Acute Orders No qualifying data available. You Need to Schedule the Following Appointments Follow Up with CHRISTIAN QUINTERO When Within 2-4 days Where: [address] [place] [phone] Allergies NKA Medications Please ask your primary doctor or pharmacist before taking any other medication not listed, including over the counter drugs, herbal medications, vitamins and or supplements as they may interact withyour home medications. What How Much When Why Instructions Last Dose Unchanged acetaminophen (acetaminophen 500 mg oral capsule) 2 cap by mouth Every 4 hours as needed for for fever/pain Unchanged ARIPiprazole (ARIPiprazole 5 mg oral tablet) 1 tab(s) by mouth Once a day Unchanged mirtazapine (mirtazapine 15 mg oral tablet) 1 tab(s) by mouth Daily at bedtime Unchanged pantoprazole (pantoprazole 40 mg oral enteric coated tablet) 1 tab(s) by mouth Once a day GERD (gastroesophageal reflux disease) Unchanged traZODone (traZODone 50 mg oral tablet) 1 tab(s) by mouth Daily at bedtime Insomnia Please take this list to your next doctor s visit. Bring all medications you take, including over the counter medications, herbals and other supplements with you to your doctor s visit. Patients and families are reminded to discard old lists and to update any records with all medication providers or retail pharmacies. Education Materials Weakness with Uncertain Cause Based on your exam today, the exact cause of your weakness is not certain. But your weakness does not seem to be a sign of a serious illness at this time. Keep an eye on your symptoms and get medicaladvice as instructed below. Home care Rest at home today. Don't over-exert yourself. Take any medicine as prescribed. For the next few days, drink extra fluids (unless your healthcare provider wants you to restrict fluids for other reasons). Don't skip meals. Unless otherwise directed, continue to take any prescription medicines. Contact your healthcare provider if you have any questions or concerns. Follow-up care Follow up with your healthcare provider, or as advised. When to seek medical advice Call your healthcare provider right away for any of the following: Symptoms get worse Symptoms don't start getting better within 2 days Fever of 100.4 F (38 C) or higher, or as directed by your healthcare provider Call 911 Call 911 for any of these: Chest, arm, neck, jaw, or upper back pain Trouble breathing Numbness or weakness of the face, one arm, or one leg Slurred speech, confusion, or trouble speaking, walking, or seeing Blood in vomit or stool (black or red color) Loss of consciousness Severe headache 87[address] [place] [address]. All rights reserved. This information is not intended as a substitute for professional medical care. Always follow yourhealthcare professional's instructions. Additional Information VACCINATE! IT SAVES LIVES! Members of the community who have not yet received the COVID-19 vaccine and would like to receive it can visit one of [facility] vaccine clinics. There are many vaccine clinic locations within the [facility]. For locations and available times, please visit www.gettheshot.coronavirus.[place].gov/. It is important to note that some COVID mobile vaccine clinics are held outdoors and may be canceled in rainy or stormy conditions. To learn more about pediatric vaccinations (ages 5-11), we invite you to visit the [facility] webpage. https://www.[facility].org/pages/7270-Hgbrb-Mrfaintitkq-Pdenwdeggy-Clshl-Ofy stions.htmlTo learn more about the COVID-19 vaccine, we invite you to visit the CDC website for a list of frequently asked questions. https://www.cdc.gov/coronavirus/2019-ncov/vaccines/faq.html [facility] Patient Portal Access Instructions: Stay connected with your healthcare team and access your personal medical information anytime with the [facility] Patient Portal. If you would like a full copy of your medical records please contact the [facility] Medical Records Department Monday through Monday between 8a.m. and 4:30p.m. Please follow the directions below to access the portal: 1.Access the email account you provided upon registration to the [facility].2.Look for an invitation email from [facility].3.Open the email and access the invitation link: Accept Invitation to [facility]4.Fill in the required mancuso to create your account. Sign into www.[email or web address] with your username and password that you created in the above steps to stay up to date. You can then view a summary of results, a summary of your visits, and the ability to download your summaries to your computer or send the information securely to a physician. Remember that your healthcare information is confidential, so carefully consider who you will allow to register on the [facility] Patient Portal for access to your information. You can also access the [facility] Patient Portal on the Mum[employer] radha. Simply click on Health Records under [employer] and then click on the [facility] logo. HOW TO SAFELY DISPOSE OF PRESCRIPTION MEDICATIONS Please use one of the following methods to safely dispose of your unused medications. 1.Use a drug disposal kit: the drug disposal pouch allows you to safely discard your old and unuseddrugs. Ask your nurse to give you one when you are discharged.2.Visit a local take-back location: Many local pharmacies and police departments have programs that collect old and unwanted prescriptiondrugs. Call your local pharmacy or go to http://bit.[employer]/8J5Dv5f to find one close to you.3.Make use of household items: Use cat litter or old coffee grounds to dispose medications if other options arenot available. Mix your drugs with these household products, seal them in an airtight container andthrow it into the garbage. Call [facility]: [phone] to be sure your drugs can be disposed of in this way. Some medicines may require a different approach.4.Never flush your medications down the toilet. IF YOU HAVE BEEN PRESCRIBED AN OPIOIDS FOR PAIN If you have been prescribed an opioid (such as hydrocodone, oxycodone or morphine), it is critical to understand the possible side effects and risks of opioid pain medications. Even when taken as directed, opioids can have several side effects including: Tolerance, meaning you might need to take more of a medication for the same pain relief. Nausea, vomiting and/or constipation. Sleepiness, dizziness, dry mouth, confusion, depression or itching. Physical dependence, meaning you have withdrawal symptoms when a medication is stopped ? this can develop within a few days. KNOW YOUR RESPONSIBILITIES It is important to know exactly how much and how often to take the opioid pain medications you are prescribed. Never take opioids in higher amounts or more often than prescribed. Do not combine opioids with alcohol or other drugs that cause drowsiness, such as benzodiazepines, also known as benzos,including diazepam and alprazolam, muscle relaxants or sleep aids. Never sell or share prescriptionopioids. This is illegal. Store opioids in a secure place and out of reach of others (including children, family, friends and visitors). The last page(s) of this document has been signed and retained as a CHART COPY Signatures Patient Education Materials Weakness (Uncertain Cause) Medication Leaflets My discharge plan and instructions have been reviewed and explained to me and IMARAH DEAN A understand my current condition and have read and understand these discharge instructions. I have received a written copy of the plan/instructions. If I have questions, I am aware that I should contactmy doctor. 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 Apprentice Signature: Date/Time: Relationship to Patient: Witness Name/Signature: Date/Time: [facility]12-15-2023 NoteSinus rhythm Borderline right axis deviation Electronic Signature: JENNIFER FRANKS MD 02/10/2023 13:24:43[facility] 12-15-2023 SARS-CoV-2 (COVID-19) RNA JENNIFER+probe Ql (Nph) Negative *NA* (02/10/23 1:14 PM)AO Auto Urine [id number] Evaluation + Plan note Future Scheduled Tests Laboratory* Prostate Specific Antigen 10/11/22 * Prostate Specific Antigen 10/11/22 * Lipid Profile 10/11/22 * Hepatitis C Antibody IgG 10/11/22 * Complete Metabolic Panel 10/11/22 [facility] 06-27-2023 SARS-CoV-2 (COVID-19) RNA JENNIFER+probe Ql (Nph) Negative *NA* (08/23/22 1:32 AM)AO Auto Urine SSConsult note [facility] Medical Records Department [address] [place] [address] Anesthesia Postop Eval II 11/22/24 1508 MR#: [id number] Acct: [id number] Name: JAYCOB CRYSTAL Rep #:[id number] : 1960 63 From: Norris Salter PCP: Katelyn Kamara DRAWBENCH OPERATOR-C Status: [facility] Y Race: C Location: EN Anesthesia Postop Eval I Sum Postop Eval Completion status Anesthesia document: Postop Eval 1 completed: Yes Anesthesia Postop Eval I Summary Anesthesia Postop Eval I Summary: Anesthesia Postop Eval I: Assessment Summary Airway patent Yes 11/22/24 13:06 RADIOTELEGRAPH OPERATOR.HBARR Spontaneous unlabored Yes 11/22/24 13:06 RADIOTELEGRAPH OPERATOR.HBARR respirations Mental status Awake 11/22/24 13:06 RADIOTELEGRAPH OPERATOR.HBARR nausea No 11/22/24 13:06 RADIOTELEGRAPH OPERATOR.HBARR Vomiting No 11/22/24 13:06 RADIOTELEGRAPH OPERATOR.HBARR Anesthesia Postop Eval I: Fluid Summary Crystalloid volume administer 500 11/22/24 13:06 RADIOTELEGRAPH OPERATOR.HBARR (ml) Colloids volume administered ( ml) Blood Product volume administered (ml) Total IV fluid infused 500 11/22/24 13:06 YOAN Anesthesia Postop Eval I: Summary Notes Anesthesia Complication No 11/22/24 13:06 RADIOTELEGRAPH OPERATOR.[place] Anesthesia Complication Comment: Post-operative progress note Anesthesia: Postop Eval II Evaluation Mental status: Awake Pain Level: 1 nausea: No Vomiting: No Complications Anesthesia Complication: No 11/22/24 1508 MD> Date _ Norris Franks MD Cosigner Signature: Date CC: ~ [facility] Note Date/Time November 22, 2024 1:28pm [facility] Medical Records Department [address] [place] [id number] Anesthesia Postop Eval I 11/22/24 1305 MR#: [id number] Acct: [id number] Name: JAYCOB CRYSTAL Rep #:[id number] : 1960 63 From: Sheila Galeana CRNA PCP: Katelyn Kamara DRAWBENCH OPERATOR-C Status: REG [place] Y Race: C Location: [place] [address] Anesthesia: Postop Eval I Current Vital Signs Temperature: 97 F Pulse Rate: 77 Blood Pressure: 96/68 Respiratory Rate: 14 Pulse Ox: 98 Oxygen Delivery Method: Room Air Assessment Airway patent: Yes Spontaneous unlabored respirations: Yes Mental status: Awake nausea: No Vomiting: No Anesthesia Complication: No Fluid Hydration Crystalloid volume administer (ml): 500 Total IV fluid infused: 500 Progress Note Anesthesia document: Postop Eval 1 completed: Yes 11/22/24 1328 <Electronically signed by Sheila MUNIZ> Date _ Sheila Galeana CRNA Cosigner Signature: Date CC: ~ Signed [facility] Work Phone: Consult note Author Norris Franks [facility] Note Date/Time November 22, 2024 3:08pm [facility] Medical Records Department [address] [place] [address] Anesthesia Postop Eval II 11/22/24 1508 MR#: [id number] Acct: [id number] Name: JAYCOB CRYSTAL Rep #:[id number] : 1960 63 From: Norris Salter PCP: Katelyn Kamara, DRAWBENCH OPERATOR-C Status: [facility] Y Race: C Location: EN Anesthesia Postop Eval I Sum Postop Eval Completion status Anesthesia document: Postop Eval 1 completed: Yes Anesthesia Postop Eval I Summary Anesthesia Postop Eval I Summary: Anesthesia Postop Eval I: Assessment Summary Airway patent Yes 11/22/24 13:06 RADIOTELEGRAPH OPERATOR.HBARR Spontaneous unlabored Yes 11/22/24 13:06 RADIOTELEGRAPH OPERATOR.HBARR respirations Mental status Awake 11/22/24 13:06 RADIOTELEGRAPH OPERATOR.HBARR nausea No 11/22/24 13:06 RADIOTELEGRAPH OPERATOR.HBARR Vomiting No 11/22/24 13:06 RADIOTELEGRAPH OPERATOR.HBARR Anesthesia Postop Eval I: Fluid Summary Crystalloid volume administer 500 11/22/24 13:06 RADIOTELEGRAPH OPERATOR.HBARR (ml) Colloids volume administered ( ml) Blood Product volume administered (ml) Total IV fluid infused 500 11/22/24 13:06 RADIOTELEGRAPH OPERATOR.HBARR Anesthesia Postop Eval I: Summary Notes Anesthesia Complication No 11/22/24 13:06 RADIOTELEGRAPH OPERATOR.HBARR Anesthesia Complication Comment: Post-operative progress note Anesthesia: Postop Eval II Evaluation Mental status: Awake Pain Level: 1 nausea: No Vomiting: No Complications Anesthesia Complication: No 11/22/24 1508 <Electronically signed by Norris Franks MD> Date _ Norris Franks MD Cosigner Signature: Date CC: ~ Signed [facility] Work Phone: Discharge summary Author Marcos Walker [facility] Note Date/Time December 18, 2024 2:25pm [facility] Medical Records Department [address] [place] [address] Emergency Department Summary 12/18/24 MR#: [id number] Acct: [id number] Name: JAYCOB CRYSTAL Rep #:[id number] : 1960 63 From: Marcos Walker MD PCP: ALEKSANDER MeierC Status: REG ER Location: ED HPI History of Present Illness Chief Complaint: Syncope Detail of Chief Complaint: Syncopal episode attempting to self cath self Informant: patient Onset/Context/Timing Onset: Today and Hours Context: Sudden Onset Timing: Intermittent Quality: Syncope Location: Nursing facility Current Severity: Gone Maximum Severity: Severe Worsened by: Patient states he was having discomfort when he was attempting to insert Fo Relieved by: Procedure aborted Associated Symptoms Associated Symptoms: Vagal response Narrative Narrative: Patient is a 63-year-old male. He states he has urinary retention. He was attempting to self cath himself. He was learning how. Nurses caught him beforehe fell. He apparently was experiencing severe pain got lightheaded and passed out. He reportedly was diaphoretic and may have been pale. There was no seizure or abnormal motor activity. There is no incontinence. Prior similar symptoms: No Recent Illness/Hospitalization: No PFSH PFS Medical History Loss of consciousness History of echocardiogram Cardiology follow-up encounter Lives in assisted living facility Bladder disease Autism Anemia Suicide attempt Acute insomnia GERD (gastroesophageal reflux disease) Anxiety Depression Home Medications ?Medication ?Instructions ?Recorded ?Last Taken ?Type aripiprazole 5 mg tablet 7.5 mg PO DAILY [facility] 02/01/24 11/22/24 History bupropion HCl 150 mg 24 hr tablet, 150 mg PO DAILY [facility] 02/01/24 11/22/24 History extended release ibuprofen 200 mg tablet (Advil) 400 mg PO Q6H PRN pain 02/01/24 Unknown History meloxicam 7.5 mg tablet 7.5 mg PO DAILY PRN pain 07/2011/22/24 History pantoprazole 40 mg tablet,delayed 40 mg PO DAILY reflu x 02/01/24 11/22/24 History release mirtazapine 7.5 mg tablet 7.5 mg PO QHS 10/14/2411/21 History ondansetron 4 mg disintegrating 4 mg PO Q4H PRN nausea and vomiting 10/14/24 Unknown History tablet solifenacin 10 mg tablet 10 mg PO QDAY 10/14/2411/22 History tamsulosin 0.4 mg capsule 0.4 mg PO QHS 10/14/2411/21 History acetaminophen 325 mg tablet (Pain 650 mg PO Q6H PRN pa in 11/08/24 Unknown History Relief (acetaminophen)) Allergy/AdvReac Type Severity Reaction Status Date / Time No Known Allergies Allergy Verified 12/18/24 10:29 Surgical History History of facial surgery History of surgery on lower extremity Hx of cholecystectomy Social History housing: apartment current occupational status: unemployed Smoking Status: Never smoker ROS ROS ED Constitutional Constitutional ED: Denies chills, fever(s), subjective, sweats or weight loss Gastrointestinal Gastrointestinal: Reports nausea; Denies abdominal pain or vomiting Genitourinary Genitourinary ED: Reports other Details: Bladder dystonia and incomplete voiding; Denies dysuria, hematuria or urinary frequency Musculoskeletal Musculoskeletal: Denies back pain Integumentary Denies rash Hematologic/Lymphatic Hematologic/Lymphatic: Reports systems reviewed and no addt'l complaints, exceptas documented EXAM Physical Exam Const Vital Signs: 12/18/24 10:25 12/18/24 10:30 Temperature 97.9 F Temperature Source Oral Pulse Rate 80 Respiratory Rate 18 Respiratory Effort Normal Non-Labored Respiratory Pattern Normal Blood Pressure 118/76 Blood Pressure Mean 90 Pulse Ox 100 Oxygen Delivery Method Room Air Positive well nourished and well developed General Appearance ED: well developed, NAD and pallor HEENT Reports moist mucous membranes HEENT Narrative: Head is atraumatic and normocephalic. Patient has prior incisions noted suspectdue to subdural hematoma. Ears normal. Nares patent. Posterior pharynx is normal Eyes PERRL and EOMs intact bilaterally General Eye ED: Negative for scleral icterus Neck no lymphadenopathy, supple and no JVD Resp normal respiratory effort and clear to auscultation bilaterally Cardio regular rate, regular rhythm, S1 normal heart sound, S2 normal heart sound and no murmurs GI normal to inspection, nondistended, normoactive bowel sounds, non-tender, non-distended and no masses; Negative for hepatosplenomegaly Narrative: External genitalia normal Extremity normal to inspection General Extremety ED: Negative for tenderness Neuro oriented x3 and CN's II-XII intact bilaterally Sensorium / Orientation: alert Psych Psych Narrative: Affect is flat. Mood is depressed. Slow psychomotor skills. Skin General Skin Exam: pallor MDM MDM MDM Narrative Medical decision making narrative: EKG was obtained per nurse protocol. EKG reveals a normal sinus rhythm. Rate of 76. EKG is normal. NV interval is under 62 ms. QS duration 84 ms. QT duration 4 and 10 ms. [place] is normal. History and physical is consistent with vasovagal response. If he has no dysrhythmia after short period of observation will discharge. History & Record Review Additional record(s) reviewed:: Prior inpatient record (Admission for DAMARIS January 2024), Prior outpatient record (Office note by Dr. Lux Friend for anemia. His history and physical was reviewed as well. This was authored on November 22.) and Prior labs Treatment and Re-Evaluation :: Patient was observed for 55 minutes. He has no dysrhythmia. Therefore we will discharge to home Discharge Plan Triage Chief Complaint: Syncope ED Provider: Marcos Walker Dx/Rx/DC Orders Clinical Impression: Syncope, vasovagal, Anxiety disorder, Major depressive disorder, Inflammatory bowel diseases (IBD) Instructions: ED Fainting, Vagal Reaction Prescriptions: No Action mirtazapine 7.5 mg tablet 7.5 mg PO QHS ondansetron 4 mg tablet,disintegrating 4 mg PO Q4H PRN (Reason: nausea and vomiting) solifenacin 10 mg tablet 10 mg PO QDAY tamsulosin 0.4 mg capsule 0.4 mg PO QHS meloxicam 7.5 mg tablet 7.5 mg PO DAILY PRN (Reason: pain) pantoprazole 40 mg tablet,delayed release (DR/EC) 40 mg PO DAILY aripiprazole 5 mg tablet 7.5 mg PO DAILY bupropion HCl 150 mg tablet extended release 24 hr 150 mg PO DAILY ibuprofen [Advil] 200 mg tablet 400 mg PO Q6H PRN (Reason: pain) acetaminophen [Pain Relief (acetaminophen)] 325 mg tablet 650 mg PO Q6H PRN (Reason: pain) Primary Care Provider: Katelyn Kamara NP Referrals: Katelyn Kamara DRAWBENCH OPERATOR, DRAWBENCH OPERATOR-C [Primary Care Provider, Medical] - As Needed Print Language: Kinyarwanda Disposition Disposition: Home, Self Care What to do if you have Problems For any increased pain, shortness of breath, bleeding, nausea or vomiting, chestpain, or any unexpected problems, contact your Primary Care Provider. Call [facility] ([phone]) or report to the closest Emergency Room. Call 911 if necessary. 12/18/24 1125 <Electronically signed by Marcos Walker MD> Cosigner Signature (if applicable): CC: DRAWBENCH OPERATOR-C Katelyn Kamara ~ Signed [facility] Work Phone: Evaluation + Plan note Future Appointments Appointment Date:09/02/2022 02:00:00 PM Scheduled Provider:CHRISTIAN QUINTERO Location:[facility] Appointment Type:PC OV [facility] Evaluation + Plan note Future Appointments Appointment Date:04/19/2023 11:00:00 AM Scheduled Provider:CHRISTIAN QUINTERO Location:[facility] Appointment Type:PC OV Future Scheduled Tests Laboratory* Prostate Specific Antigen 10/11/22 * Prostate Specific Antigen 10/11/22 * Lipid Profile 10/11/22 * Hepatitis C Antibody IgG 10/11/22 * Complete Metabolic Panel 10/11/22 [facility] Evaluation + Plan note Future Appointments Appointment Date:07/21/2023 11:00:00 AM Scheduled Provider:CHRISTIAN QUINTERO Location:[facility] Appointment Type:PC OV Appointment Date:09/13/2023 10:30:00 AM Scheduled Provider:CHRITSIAN QUINTERO Location:[facility] Appointment Type:PC OV Future Scheduled Tests Laboratory* Prostate Specific Antigen 10/11/22 * Prostate Specific Antigen 10/11/22 * Lipid Profile 10/11/22 * Hepatitis C Antibody IgG 10/11/22 * Complete Metabolic Panel 10/11/22 [facility] Evaluation + Plan note Future Appointments Appointment Date:08/18/2023 11:00:00 AM Scheduled Provider:CHRISTIAN QUINTERO Location:[facility] Appointment Type:PC OV Appointment Date:09/13/2023 10:30:00 AM Scheduled Provider:CHRISTIAN QUINTERO Location:[facility] Appointment Type:PC OV Future Scheduled Tests Laboratory* Ferritin 07/21/23 * Folate Level 07/21/23 * Iron Level 07/21/23 * Prostate Specific Antigen 07/21/23 * Prostate Specific Antigen 10/11/22 * Prostate Specific Antigen 10/11/22 * Vitamin B12 Level 07/21/23 * Lipid Profile 07/21/23 * Lipid Profile 10/11/22 * Hepatitis C Antibody IgG 10/11/22 * Complete Metabolic Panel 10/11/22 [facility] Evaluation + Plan note Future Appointments Appointment Date:03/22/2024 10:30:00 AM Scheduled Provider:CHRISTIAN QUINTERO Location:[facility] Appointment Type:PC OV Future Scheduled Tests Laboratory* Folate Level 07/21/23 * Iron Level 07/21/23 * Vitamin B12 Level 07/21/23 * Lipid Profile 07/21/23 [facility] Evaluation note* Diagnosis Onset Date Resolution Status Admit Date Anemia acute October 14, 2 025 10:09am [facility] Work Phone: Hospital course Narrative No data available for this section [facility] Hospital Discharge instructions No data available for this section [facility] Progress note No data available for this section [facility] Reason for referral (narrative)No reason for [facility]* Cecille, PRAVEEN Escobar L: PERFORM Event Display: Patient Summary Documents Authored Date: [id number] [facility] summary note* Cecille, PRAVEEN Luz L: PERFORM Event Display: Patient Summary Documents Authored Date: [id number] [facility] Summary Purpose Family History No Family History Records Found Advance Directives Advance Directive Response Recorded Date/ Time Do you have a Healthcare Power of Licensed Life And Health Agent? No November 08, 2024 12:24pm Advance Directive Response Recorded Date/ Time Do you have a Healthcare Power of Licensed Life And Health Agent? No December 18, 2024 9:29am Do you have a Healthcare Power of Licensed Life And Health Agent? No November 08, 2024 11:24am Chief Complaint and Reason for Visit Chief Complaint Admit Date Anemia/Reflux October 14, 2024 10 :09am syncope December 18, 2024 1 0:24am Reason for Visit Admit Date Anemia October 14, 2024 10 :09am Family history of colon cancer in father October 14, 2024 10:09am Screen for colon cancer October 14 10:09am Anemia November 22, 2024 11:24am Screen for colon cancer November 22, 2024 11:24am Chief Complaint Admit Date Anemia/Reflux October 14, 2024 10 :09am Reason for Visit Admit Date Anemia October 14, 2024 10 :09am Reason for Visit Admit Date Anemia October 14, 2024 10 :09am Family history of colon cancer in father October 14, 2024 10:09am Screen for colon cancer October 14 10:09am Reason for Visit Admit Date Anemia October 14, 2024 10 :09am Family history of colon cancer in father October 14, 2024 10:09am Screen for colon cancer October 14 10:09am Anemia November 22, 2024 11:24am Screen for colon cancer November 22, 2024 11:24am Chief Complaint Admit Date Anemia/Reflux October 14, 2024 10 :09am syncope December 18, 2024 1 0:24am Additional Source Comments Patient Care team informatio n (unrecognized section and content) Team Status: Active Member Role/Relationship Status Dates Christian Quintero DRAWBENCH OPERATOR, DRAWBENCH OPERATOR-C Primary Care Provider Active Team Status: Inactive Member Role/Relationship Status Dates Stephanie Jenkins NP-C Attending Provider Active Start: October 14, 2024 End: October 14, 2024 Katelyn Kamara DRAWBENCH OPERATOR, DRAWBENCH OPERATOR-C Referring Provider Active Start: October 14, 2024 End: October 14, 2024 Christian Quintero DRAWBENCH OPERATOR, DRAWBENCH OPERATOR-C Primary Care Provider Active Start: October 14, 2024 End: October 14, 2024 Team Status: Active Member Role/Relationship Status Dates Katelyn Kamara DRAWBENCH OPERATOR, DRAWBENCH OPERATOR-C Primary Care Provider Act ginger Team Status: Inactive Member Role/Relationship Status Dates Katelyn Kamara DRAWBENCH OPERATOR, DRAWBENCH OPERATOR-C Primary Care Provider Act ginger Start: October 14, 2024 End: October 14, 2024 Stephanie Jenkins NP-C Attending Provider Active Start: October 14, 2024 End: October 14, 2024 Stephanie Jenkins NP-C Referring Provider Active Start: October 14, 2024 End: October 14, 2024 Team Status: Active Member Role/Relationship Status Dates Katelyn Kamara NP, DRAWBENCH OPERATOR-C Primary care physician Ac tive Team Status: Inactive Member Role/Relationship Status Dates Stephanie Jenkins NP-C Attending physician Active Start: October 14, 2024 End: October 14, 2024 Katelyn Kamara DRAWBENCH OPERATOR, DRAWBENCH OPERATOR-C Referring Provider Active Start: October 14, 2024 End: October 14, 2024 Christian Quintero NP, DRAWBENCH OPERATOR-C Primary care physician Active Start: October 14, 2024 End: October 14, 2024 Team Status: Inactive Member Role/Relationship Status Dates Katelyn Kamara NP, DRAWBENCH OPERATOR-C Primary care physician Ac tive Start: October 14, 2024 End: October 14, 2024 Stephanie Jenkins NP-C Attending physician Active Start: October 14, 2024 End: October 14, 2024 Stephanie Jenkins DRAWBENCH OPERATOR-C Referring Provider Active Start: October 14, 2024 End: October 14, 2024 Team Status: Inactive Member Role/Relationship Status Dates Katelyn Kamara DRAWBENCH OPERATOR, DRAWBENCH OPERATOR-C Primary care physician Active Start: November 22, 2024 End: November 22, 2024 Katelyn Kamara DRAWBENCH OPERATOR, DRAWBENCH OPERATOR-C Referring Provider Active Start: October End: November 22, 2024 Dr. Juan Cazares DO Attending physician Active Start: November 22, 2024 End: November 22, 2024 Team Status: Active Member Role/Relationship Status Dates Katelyn Kamara DRAWBENCH OPERATOR, DRAWBENCH OPERATOR-C Primary care physician Active Start: November 22, 2024 Katelyn Kamara DRAWBENCH OPERATOR, DRAWBENCH OPERATOR-C Referring Provider Active Start: October Dr. Juan Cazares DO Attending physician Active Start: November 22, 2024 Dr. Juan Cazares DO Nurse Practitioner Active Start: November 22, 2024 Team Status: Inactive Member Role/Relationship Status Dates Katelyn Kamara DRAWBENCH OPERATOR, DRAWBENCH OPERATOR-C Primary care physician Active Start: December 182024 End: December 18, 2024 Dr. Marcos Walker MD Attending physician Active St art: December 18, 2024 End: December 18, 2024 Dr. Marcos Walker MD Emergency Department Physician Active Start: December 18, 2024 End: December 18, 2024 (unrecognized sect ion and content) No Status Records FoundNo Status Records FoundNo Status Records FoundNo Status Records Found INFORMATION SOURCE (unrecogn ized section and content) DATE CREATED AUTHOR 07/24/2023 [facility] ([place]) DATE CREATED AUTHOR 'S ORGANIZ ATION 09/19/2023 [facility] DATE CREATED AUTHOR 'S ORGANIZ ATION 02/01/2024 [facility] DATE CREATED AUTHOR AUTHOR'S ORGANIZ ATION 12/29/2024 [facility] Goals (unrecognized section and content) Goals may be documented in a n alternate section FOR RECORDS PERTAINING TO PATIENTS WHO ARE OR HAVE BEEN ENROLLED IN A CHEMICAL DEPENDENCY/SUBSTANCEABUSE PROGRAM, SOME INFORMATION MAY BE OMITTED. This clinical summary was aggregated from multiple sources. Caution should be exercised in using it in the provision of clinical care. This summary normalizes information from multiple sources, and as a consequence, information in this document may materially change the coding, format and clinical context of patient data. In addition, data may be omitted in some cases. CLINICAL DECISIONS SHOULD BE BASED ON THE PRIMARY CLINICAL RECORDS. [facility] [facility]. provides no warranty or guarantee of the accuracy or completeness of information in this document.
[2025-01-23 01:23] LABS: AST(SGOT) 26 U/L (<=37); Alanine Aminotransfer ALT/SGPT 47 U/L (<=46); Albumin, Serum 3.5 g/dL (3.4-4.8); Alkaline Phosphatase 149 U/L (40-129); Anion Gap 14 (5-15); BUN 25 mg/dL (4-19); BUN/Creat Ratio 9.9 RATIO (10-20); Calcium,Total 8.8 mg/dL (7.6-11.0); Carbon Dioxide 23.8 mmol/L (21.0-32.0); Chloride 98 mmol/L (98-108); Estimated Creatinine Clearance 26.90 ml/min (50-250); Globulin 3.3 g/dL (2.2-4.2); Glucose 135 mg/dL (70-99); Potassium 4.0 mmol/L (3.3-5.1)
[2025-01-23 01:50] LABS: Mucous, Urine 0 SEEN /hpf (<or=2+); Squamous Epithelial Cells - UA 0 SEEN /hpf (0-5)
[2025-01-23 01:52] LABS: Color, Urine Yellow (Yellow); Glucose, Dipstick Normal (Normal); Ketone-Dipstick Negative (Negative); Leukocyte Esterase-Dipstick 100 /ul (Negative); Nitrite-Dipstick Negative (Negative); Occult Blood-Urine 10 /ul (Negative); Protein-Dipstick 15 mg/dl (Negative); Specific Gravity, Urine 1.005 (1.002-1.030); Urine Bilirubin Dipstick Negative (Negative)
[2025-01-23 02:09] LABS: Red Blood Cells-Urine 0-5 SEEN /hpf (0-5)
--- NOTE | 2025-01-23 02:36 | PCM.HP.STD ---
HPI - General General Date of Admission: 01/23/25 Date of Service: 01/23/25 Chief Complaint: Fever and generalized weakness HPI Narrative JAYCOB MARAH, is a 64 M who presents with a fall and inability to get up independently because of progressive generalized weakness. Patient has significant medical history for anxiety, depression, GERD and prior DAMARIS. He is brought from his assisted living facility after he was unable to get up independently after he fell down. Patient states that he has been feeling generally weak over the past several days, he felt dizzy and lightheaded with movements and was not eating or drinking well. He denies loss of consciousness, headaches, changes in behavior or confusions. Patient states that he does self cath his urinary bladder at least 4 times a day which is a new problem for him, he states he has seen a urologist but he does not know the exact diagnosis. He says he cannot feel the urge to void but denies any incontinence. He came to the ED 1 day prior for similar complaint of generalized weakness and dehydration and was sent back to his facility after 1 L of IV fluids. This visit he is febrile 102.3, WBC 11.7 and serum creatinine 2.5 from normal baseline. Urinalysis from the prior ED visit showed pyuria. Although he has 2 points on SOFA score for the degree of creatinine elevation, he may not qualify for sepsis diagnosis because of the possibility of obstructive nephropathy as the cause of creatinine elevation as bedside ultrasound showed some hydronephrosis. Patient will be admitted to hospital with catheter associated UTI and requires broad-spectrum IV antibiotics to cover potential resistant organisms as patient comes in from a facility and performs self cath with unknown septic and hygienic precautions, and the other reason for admission is DAMARIS workup and management, including formal ultrasound to rule out obstructive nephropathy and repeat kidney function following IV fluids [facility] Medical History Loss of consciousness History of echocardiogram Cardiology follow-up encounter Lives in assisted living facility Bladder disease Autism Anemia Suicide attempt Acute insomnia GERD (gastroesophageal reflux disease) Anxiety Depression Home Medications ?Medication ?Instructions ?Recorded ?Last Taken ?Type aripiprazole 5 mg tablet 7.5 mg PO DAILY mental health 02/01/24 01/22/25 History bupropion HCl 150 mg 24 hr tablet, 150 mg PO DAILY mental health 02/01/24 01/22/25 History extended release meloxicam 7.5 mg tablet 7.5 mg PO DAILY PRN pain 02/01/24 01/19/25 History pantoprazole 40 mg tablet,delayed 40 mg PO DAILY reflux 02/01/24 01/22/25 History release mirtazapine 7.5 mg tablet 7.5 mg PO QHS 10/14/24 01/21/25 History ondansetron 4 mg disintegrating 4 mg PO Q4H PRN nausea and vomiting 10/14/24 Unknown History tablet solifenacin 10 mg tablet 10 mg PO QDAY 10/14/24 01/22/25 History tamsulosin 0.4 mg capsule 0.4 mg PO QHS 10/14/24 01/21/25 History acetaminophen 325 mg tablet (Pain 650 mg PO Q6H PRN pain 11/08/24 12/27/24 History Relief (acetaminophen)) aluminum-mag hydroxide-simethicone 30 ml PO TID PRN indigestion 01/22/25 Unknown History 200 mg-200 mg-20 mg/5 mL oral susp (Advanced Antacid-Antigas) bisacodyl 10 mg rectal suppository 10 mg [place] PRN 01/22/25 Unknown History guaifenesin 400 mg tablet (Chest 400 mg PO TID PRN congestion AND 01/22/25 Unknown History Congestion Relief) COUGH lidocaine 4 % topical patch 1 patch topical Q12H 01/22/25 01/22/25 History magnesium hydroxide 400 mg/5 mL 30 ml PO DAILY PRN constipation 01/22/25 Unknown History oral suspension (Gentle Laxative (magnesium hydroxide)) neomycin-bacitracn Zn-polymyx 3.5 1 applic topical PRN 01/22/25 Unknown History mg-400 unit-5,000 unit/gram top oint (Antibiotic(xfqji-nphai-bsbcs)) polyethylene glycol 3350 17 17 g PO DAILY PRN constipation 01/22/25 Unknown History gram/dose oral powder (ClearLax) trazodone 100 mg tablet 100 mg PO QHS 01/22/25 01/21/25 History Allergy/AdvReac Type Severity Reaction Status Date / Time No Known Allergies Allergy Verified 01/23/25 00:38 Surgical History History of facial surgery History of surgery on lower extremity Hx of cholecystectomy Social History housing: apartment current occupational status: unemployed Smoking Status: Never smoker ROS Constitutional Constitutional: Reports fever(s) and poor appetite ENT HEENT: Reports none Cardiovascular Cardiovascular: Denies chest pain or dyspnea Respiratory/Chest Respiratory/Chest: Denies cough or wheezing Gastrointestinal Gastrointestinal: Denies abdominal pain or change in bowel habits Genitourinary Genitourinary: Reports as per HPI and difficulty urinating; Denies dribbling or urinary incontinence Musculoskeletal Musculoskeletal: Denies arthralgias or myalgias Integumentary Integumentary: Reports none Neurologic Neurologic: Reports dizziness; Denies abnormal speech, focal weakness, loss of vision or numbness Psychiatric Psychiatric: Reports anxiety and depression Hematologic/Lymphatic Hematologic/Lymphatic: Reports none Vital Signs Vital Signs Vital Signs: 01/23/25 00:32 01/23/25 01:43 01/23/25 01:45 Temperature 102.3 F H 102.2 F H Temperature Source Oral Oral Pulse Rate 116 H 97 Respiratory Rate 18 18 Respiratory Effort Normal Non-Labored Respiratory Pattern Normal Blood Pressure 139/65 H 108/66 Blood Pressure Mean 89 80 Pulse Ox 98 95 Oxygen Delivery Method Room Air Room Air 01/23/25 02:00 01/23/25 02:30 Temperature 98.8 F 98.8 F Temperature Source Oral Pulse Rate 94 Respiratory Rate 21 H Respiratory Effort Respiratory Pattern Blood Pressure 109/66 Blood Pressure Mean 80 Pulse Ox 95 Oxygen Delivery Method Weight Weight: 65.7 kg Body Mass Index (BMI) 20.7 Physical Exam Const alert and no apparent distress General Appearance: lethargic HEENT normocephalic and head/scalp atraumatic Eyes EOMs intact bilaterally; Negative for no scleral icterus Neck supple Resp normal respiratory effort and clear to auscultation bilaterally Cardio regular rate and regular rhythm; Negative for no murmurs GI normal to inspection, nondistended, normoactive bowel sounds; Negative for non-tender no CVA tenderness Extremity no joint enlargement and no pedal edema Skin no rashes or lesions noted Neuro oriented x3 and moves all extremities Results Lab / Micro Data 01/23/25 00:50 01/23/25 00:50 Labs: Laboratory Results - last 24 hr 01/23/25 00:50: WBC 11.7 H, RBC 3.06 L, Hgb 9.5 L, Hct 29.2 L, MCV 95.4 H, MCH 31.0, MCHC 32.5, RDW Std Deviation 42.3, RDW Coeff of Lola 12.3, Plt Count 261, MPV 11.0, Immature Gran % (Auto) 0.400, Neut % (Auto) 87.1 H, Lymph % (Auto) 3.9 L, [place] % (Auto) 8.2, Eos % (Auto) 0.1, Baso % (Auto) 0.3, Absolute Neuts (auto) 10.2 H, Absolute Lymphs (auto) 0.46 L, Nucleated RBC % 0, PT 15.2 H, INR 1.2, APTT 35.1, Sodium 136, Potassium 4.0, Chloride 98, Carbon Dioxide 23.8, Anion Gap 14, BUN 25 H, Creatinine 2.51 H, Estim Creat Clear Calc 26.90 L, Est GFR (MDRD) Non-Af 28 L, BUN/Creatinine Ratio 9.9 L, Glucose 135 H, Lactic Acid 1.5, Calcium 8.8, Total Bilirubin 0.61, AST 26, ALT 47, Alkaline Phosphatase 149 H, Total Protein 6.8, Albumin 3.5, Globulin 3.3, Albumin/Globulin Ratio 1.1 01/23/25 01:39: Urine Color Yellow, Urine Clarity Clear, Urine pH 7.0, Ur Specific [place] 1.005, Urine Protein 15 H, Urine Glucose (UA) Normal, Urine Ketones Negative, Urine Occult Blood 10 H, Urine Nitrite Negative, Urine Bilirubin Negative, Urine Urobilinogen Normal, Ur Leukocyte Esterase 100 H, Urine RBC 0-5 SEEN, Urine WBC 0-5 SEEN, Ur Squamous Epith Cells 0 SEEN, Urine Bacteria 1+, Urine Mucus 0 SEEN Rhythm Strip Rhythm Strip: Sinus Tach Rate: 116 Ectopy: None Assessment & Plan Assessment/Plan (1) DAMARIS (acute kidney injury): (2) Complicated UTI (urinary tract infection): (3) Generalized weakness: (4) Major depressive disorder: (5) Intermittent self-catheterization of bladder: PLAN: Plan 64-year-old man from assisted living facility comes in with generalized weakness, falling and inability to independently get up, acute kidney injury creatinine 2.5 from normal baseline and catheter associated UTI Acute kidney injury: Hydration with Ringer lactate Formal kidney ultrasound (orpwu-wq-stil US showed hydronephrosis more on right side, this may resolve as a Roche catheter was placed in ED) He received 1 L fluids the day before in the ED, creatinine went up to 2.5 today from 2.3 Etiologies include dehydration, infection and/or obstruction Consider nephrology consultation if no improvement with IV fluids in the absence of obstruction Catheter associated UTI Complicated as patient has systemic symptoms Follow urine culture and blood cultures Zosyn to cover drug-resistant organisms as patient comes in from a facility and performs self caths ED started cefepime which is fine but there might be a risk of neurotoxicity with DAMARIS, and this patient had lethargy on presentation Self cath at home: Unknown diagnosis, probably neurogenic bladder as he does not feel the urge to urinate. On Flomax and solifenacin. No information in his chart Follow kidney and bladder ultrasound results Depression: Hold mirtazapine and trazodone because of lethargy. Continue Wellbutrin and Abilify If DAMARIS worsens Wellbutrin dose need to be reduced Sepsis Attestation Sepsis Attestation: Sepsis Ruled Out Date exam was performed: 01/23/25 Time exam was performed: 03:00 Sepsis Organ Dysfunction Criteria Present: Creatinine > 2.0 mg/dL Charges/Coding Visit Charges Inpatient E&M: 32080 Init Hosp L3
--- OUTSIDE RECORDS SUMMARY | 2025-01-23 03:17 | XMS RPT_ITS | CCD ---
Author Organization [facility] Inform ion Partnership [facility] Care Team Providers Care Marine Surveyor Name Role Phone INGRID PAINT FACTORY WORKERANESTHESIA DIRECTOR, CHRISTIAN Primary Care Physician Carolin PT, Clara Unavailable Dandy SALDANA MD, DR MCLEAN Attending Unavailabl e BALTES PAINT FACTORY WORKER-ANESTHESIA DIRECTOR, [place] Primary Care Unavailabl e YEVGENIY QUINTEROS DO Attending Unavailable BALTES PAINT FACTORY WORKER-ANESTHESIA DIRECTOR, CHRISTIAN Primary Care Unavailabl e YEVGENIY QUINTEROS DO Attending Unavailable BALTES PAINT FACTORY WORKER-ANESTHESIA DIRECTOR, [place] Primary Care UnavailMARLENE Wright MD Attending Unavailable BALTES PAINT FACTORY WORKER-ANESTHESIA DIRECTOR, [place] Primary Care Unavailabl e NINA PRA PAINT FACTORY WORKER-ANESTHESIA DIRECTOR, RICK Rosales Attending Unavail able BALTES PAINT FACTORY WORKER-ANESTHESIA DIRECTOR, CHRISTIAN Primary Care Unavailabl JENNFIER Tellez MD Attending Unavail able BALTES PAINT FACTORY WORKER-ANESTHESIA DIRECTOR, CHRISTIAN Primary Care Unavailabl e BALTES PAINT FACTORY WORKER-ANESTHESIA DIRECTOR, [place] Primary Care Unavailabl citlalli MIXON MD, DR RAMIREZ Attending Unavailab FELI Dinero MD Attending Unavailable BALTES PAINT FACTORY WORKER-ANESTHESIA DIRECTOR, CHRISTIAN Primary Care UnavailJENNIFER Menon MD Attending Unavail able BALTES PAINT FACTORY WORKER-ANESTHESIA DIRECTOR, CHRISTIAN Primary Care Unavailabl JENNIFER Tellez MD Attending Unavail able BALTES PAINT FACTORY WORKER-ANESTHESIA DIRECTOR, CHRISTIAN Primary Care UnavailMARLENE Wright MD Attending Unavailable BALTES PAINT FACTORY WORKER-ANESTHESIA DIRECTOR, CHRISTIAN Primary Care Unavailabl e BALTES PAINT FACTORY WORKER-ANESTHESIA DIRECTOR, CHRISTIAN Primary Care Unavailabl e BONNIE BECKWITH DO Attending Unavailable JENNIFER FRANKS MD Attending Unavail able BALTES PAINT FACTORY WORKER-ANESTHESIA DIRECTOR, CHRISTIAN Primary Care UnavailKATELYN Hurley MD Attending Unavailable BALTES PAINT FACTORY WORKER-ANESTHESIA DIRECTOR, CHRISTIAN Primary Care Unavailabl e BALTES PAINT FACTORY WORKER-ANESTHESIA DIRECTOR, CHRISTIAN Primary Care Unavailabl e KATELYN SAAB MD Attending Unavailable [facility], TAMIKA Attending Unavailable BALTES PAINT FACTORY WORKER-ANESTHESIA DIRECTOR, CHRISTIAN Primary Care [facility]availabl [facility], TAMIKA Attending Unavailable BALTES PAINT FACTORY WORKER-ANESTHESIA DIRECTOR, CHRISTIAN Primary Care Unavailabl e RENE ANG Referring Unavailable RENE ANG Attending Unavailable RENE ANG Admitting Unavailable CHALASANI, ELSA Consulting Unavailable BALTES, CHRISTIAN Primary Care Unavailable BALTES PAINT FACTORY WORKER-ANESTHESIA DIRECTOR, CHRISTIAN Attending Unavailabl e BALTES PAINT FACTORY WORKER-ANESTHESIA DIRECTOR, CHRISTIAN Primary Care Unavailabl e Gregory TELEVISION NEWS VIDEO EDITOR-C, Stephanie Attending Provider Asad TELEVISION NEWS VIDEO EDITOR-C, [facility] Referring Provider [phone] Ingrid TELEVISION NEWS VIDEO EDITOR-C, [place] Primary Care Provider [phone] Asad TELEVISION NEWS VIDEO EDITOR-C, [facility] Primary Care Provider Gregory TELEVISION NEWS VIDEO EDITOR-C, Stephanie Referring Provider Gregory TELEVISION NEWS VIDEO EDITOR-C, Stephanie Attending Physician [phone] [facility] TELEVISION NEWS VIDEO EDITOR-C, [place] Primary Care Physician Asad TELEVISION NEWS VIDEO EDITOR-C, [facility] Primary Care Physician Dr. Juan Cazares DO [...] Unavailable Marcos Walker Attending Unavailable Asad BARBA, [facility] Primary Care Unavaila ble Stephanie Jenkins Referring Unavailable Stephanie Jenkins Attending Unavailable Asad BARBA, [facility] Primary Care Unavaila ble Juan Cazares Attending Unavailable Asad BARBA, [facility] Referring Unavaila ble Asad BARBA, [facility] Primary Care Unavaila ble Landen Adorno Attending Unavailable Juan Cazares Attending Unavailable Juan Cazares Consulting Unavailable Asad BARBA, [facility] Referring Unavaila ellen Kamara TELEVISION NEWS VIDEO EDITOR, [facility] Primary Care Unavaila [facility] Care Physician, No Primary Primary Care Unava ilable Ross Espitia Attending Unavailable Stephanie Jenkins Attending Unavailable Asad TELEVISION NEWS VIDEO EDITOR, [facility] Referring Unavaila ellen Quintero TELEVISION NEWS VIDEO EDITOR, [place] Primary Care Unavailable Care Physician, No Primary Primary Care Unava ilable Tasha Queen Attending Unavailable Rambo Mora Referring Unavailable Yan Pan Attending Unavailable Yan Pan Consulting Unavailable Gregory TELEVISION NEWS VIDEO EDITOR-C, Stephanie Attending Physician Asad TELEVISION NEWS VIDEO EDITOR-C, [facility] Referring Provider Ingrid TELEVISION NEWS VIDEO EDITOR-C, [place] Primary Care Physician [phone] Asad TELEVISION NEWS VIDEO EDITOR-C, [facility] Primary Care Physician Gregory TELEVISION NEWS VIDEO EDITOR-C, Stephanie Referring Provider Dr. Juan Cazares DO Attending Physician Dr. Juna Cazares DO Nurse Practitioner Aaron العراقي, Dr. Rodríguez Attending Physician [phone] Dr. Marcos Walker MD Emergency Department Physician [...] qDay, # 90 tab(s), 0 Refill(s), Pharmacy: [facility]/pharmacy #4605, 177.8, cm, 10/11/22 11:26:00 EDT, Height, [...] 0 Refill(s), 08/04/23 12:00:00 PM EDT, Pharmacy: [facility]/pharmacy #4605, Low back pain, 177.8, cm, 07/21/23 [...] Pain, # 30 tab(s), 0 Refill(s), Pharmacy: [facility]/pharmacy #4605, Knee pain, 176, cm, 12/22/23 11:05:00 EDT, Height, kg, 12/22/23 11:05:00 EDT, Dosing Weight Start Date: 12/22/23 Stop Date: 01/21/24 Status: Ordered mirtazapine 7.5 mg oral tabl et (13 sources) Start: 10-14-2024 take 1 tablet by mag th at bedtime Start: 10-11-2022 mirtazapine 15 mg oral tablet Dose : 15 mg = 1 tab(s), Oral, qHS, # 90 tab(s), 0 Refill(s), Pharmacy: [facility]/pharmacy #4605, 177.8, cm, 10/11/22 11:26:00 EDT, Height, kg, 10/11/22 11:26:00 EDT, Dosing Weight Start Date: 10/11/22 Status: Ordered omeprazole 40 mg delayed release oral capsule (1 source) Proton Pump Inhibitor Start: 11-26-2019 omeprazole 40 mg oral delayed release capsule Dose : 40 mg = 1 cap(s), Oral, qDay, # 90 cap(s), 1 Refill(s), Pharmacy: [facility]/pharmacy #4605, Acid reflux, 175.3, cm, 11/26/19 8:29:00 [...] qDay, # 90 tab(s), 1 Refill(s), Pharmacy: [facility]/pharmacy #4605, GERD (gastroesophageal reflux disease), 177.8, cm, 07/21/23 10:52:00 EDT, Height, kg, 07/21/23 10:52:00 EDT, Dosing Weight Start Date: 08/13/23 Status: Ordered Start: 10-11-2022 pantoprazole 4 0 mg oral enteric coated tablet Dose : 40 mg = 1 tab(s), Oral, qDay, # 90 tab(s), 1 Refill(s), Pharmacy: [facility]/pharmacy #4605, GERD (gastroesophageal reflux disease), 177.8, cm, 10/11/22 11:26:00 EDT, Height, kg, 10/11/22 11:26:00 EDT, Dosing Weight Start Date: 10/11/22 Status: Ordered Peg 3350-Sod Sulf,Qrqa-Msb-Gpd (Suflave) 178.7-7.3-0.5 gram recon soln (2 sources) Start: 10-14-2024 Peg 3350-Sod Sulf,Cfdf-Yuj-Ylc (Suflave) 178.7-7.3-0.5 gram recon soln Active 0 [...] pt states does not take Peg 3350-Sod Sulf,Pzcm-Vkd-Xqz (2 sources) Start: 10-14-2024 End: 11-08-2024 Peg 3350-Sod Sulf,Fghi-Zxn-Cjm (Suflave) 178.7-7.3-0.5 gram recon soln Discontinued 0 [...] qHS, # 90 tab(s), 0 Refill(s), Pharmacy: [facility]/pharmacy #4605, Insomnia, 177.8, cm, 10/11/22 11:26:00 EDT, [...] 12 Lead EKGon 12-18-2024 12 Lead EKG [facility] Cardiovascular Services [address] [place] [address] 12 Lead EKG 12/18/24 1038 MR#: [id number] Acct: [id number] Name: CASSIDYELJAYCOBDesirae PITTS Rep #: [id number] : 1960 63 From: Landen Adorno MD [...] Normal ECG Confirmed by Landen Adorno ([id number]), online content editor ARABELLA MITCHELL ([id number]) on 12/19/2024 9:41:21 AM Referred By: PREM Confirmed By: Landen Adorno 12/19/24940 Date Landen Adorno MD CC: IRIS Kamara; Dr. Marcos Walker MD Signed Normal [facility] Electrocardiogram reportOrde red By: Landen Adorno on 12-18-2024 EKG study [facility] Cardiovascular Services [address] [place] [address] 12 Lead EKG 12/18/24 1038 MR#: [id number] Acct: [id number] Name: JAYCOB CRYSTAL Rep #:[id number] : [...] Normal ECG Confirmed by Landen Adorno ([id number]), online content editor ARABELLA MITCHELL ([id number]) on 59:41:21 AM Referred By: PREM Confirmed By: Landen Adorno 12/19/24940 Date _ Landen Adorno MD CC: IRIS Kamara; Dr. Marcos Walker MD ~ Signed [facility] Other Phone: Emergency Department Summary on 12-18-2024 Emergency Department Summary [facility] Medical Records Department [address] [place] [address] Emergency Department Summary 12/18/24 MR#: [id number] Acct: [id number] Name: JAYCOB CRYSTAL Rep #: [id number] : 1960 63 From: Marcos Walker MD PCP: Katelyn Kamara TELEVISION NEWS VIDEO EDITORElena Status:REG ER Location: ED HPI History of [...] ED: Negat (more content not included)... Normal [facility] Colonoscopy Reporton 025 Colonoscopy Report [facility] Medical Records Department [address] [place] [address] Colonoscopy Report MR#: [id number] Acct: [id number] Name: JAYCOB CRYSTAL Rep #: [id number] : 1960 63 From: Juan Cazares DO PCP: IRIS Meier Status:[place] [facility] Patient Name: Jaycob Crystal Procedure Date: 11/22/2024 [...] for surveillance. Procedure Code(s): --- Professional --- 63325, Colonoscopy, flexible; with biopsy, single or multiple CPT copyright 2021 [employer]. All rights reserved. The codes documented in this report are preliminary and upon cpc coder review may be revised to meet current compliance requirements. Juan Cazares DO 11/22/2024 1:27:34 PM This report has been signed electronically. Number of Addenda: 0 Note Initiated On: 11/22/2024 1:03 PM 11/22/24 1327 Date Juan Suero Signature: Date (if indicated) CC: TELEVISION NEWS VIDEO EDITOR-C Katelyn Kamara; Juan Cazares DO Date Dictated: 11/22/24 1303 Date Transcribed: Supervisor Inspecting: NELLY Signed Normal [facility] EGD Reporton 11-22-2024 EGD Report [facility] Medical Records Department [address] [place] [address] EGD Report MR#: [id number] Acct: [id number] Name: JAYCOB CRYSTAL Rep #: [id number] : 1960 63 From: Juan Cazares DO [...] pathology results. Procedure Code(s): --- Professional --- 05047, Small intestinal endoscopy, enteroscopy beyond second portion of duodenum, not including ileum; with biopsy, single or multiple CPT copyright 2021 [employer]. All rights reserved. The codes documented in this report are preliminary and upon cpc coder review may be revised to meet current compliance requirements. Juan Cazares DO 11/22/2024 1:24:49 PM This report has been signed electronically. Number of Addenda: 0 Note Initiated On: 11/22/2024 12:49 PM 11/22/24 1325 Date Juan Suero Signature: Date (if indicated) CC: TELEVISION NEWS VIDEO EDITOR-C Katelyn Kamara; Juan Cazares, Date Dictated: 11/22/24 1249 Date Transcribed: Supervisor Inspecting: NELLY (more content not included)... Normal [facility] Immunohistochemical Stainson 11-22-2024 Immunohistochemical Stains -------- Patient Age/Sex Location Account Attending Physician -------- JAYCOB CRYSTAL 63/M EN [id number] Juan Cazares, -------- Specimen: [id number] Received: 11/22/24-1350 Status: PRASHANT Guaman Num: [id number] Spec Type: COLON BX Subm Dr: Juan [...] developed and their performance characteristics determined by [facility] Laboratory. They may not have been cleared or approved by the U.S. Food and Drug Administration. The FDA has determined that such clearance or approval is not necessary. The above immunohistochemical markers and/or special stains have been reviewed by the Pathologist. -------- Patient Age/Sex Location Account Attending Physician -------- JAYCOB CRYSTAL 63/M EN [id number] Juan Cazares DO -------- GROSS DESCRIPTION A. [...] specimen is totally submitted in one cassette. SD 11/22/2024 CPT:34555d1,86311 -------- Patient Age/Sex Location Account Attending Physician -------- JAYCOB CRYSTAL 63/M EN [id number] Juan Cazares DO -------- Signed (signature on file) Dr. Amelia Dodge MD 12/03/24 1547 -------- Normal [facility] Comment on above: Performed By: #### P LUCITA ####[facility] [address] [place], [place], [id number] MR/OP.PROVATon 11-22-2024 [facility] Medical Records Department [address] [place] [address] Provation Physician Letter MR#: [id number] Acct: [id number] Name: ANKITROSALBAJAYCOB GALLEGOS HONG Rep #: [id number] : 1960 63 From: Juan Cazares DO PCP: ALEKSANDER MeierC [place] [facility] 11/22/2024 Katelyn Kamara Re : Colonoscopy procedure [...] Juan Suero Signature: Date (if indicated) CC: TELEVISION NEWS VIDEO EDITOR-C Katelyn Kamara; Juan Cazares DO Date Dictated: 11/22/24 1303 Date Transcribed: Supervisor Inspecting: RF Signed [facility] MR/OP.[facility] Medical Records Department [address] [place] [address] Provation Physician Letter MR#: [id number] Acct: [id number] Name: JAYCOB CRYSTAL HONG Rep #: [id number] : 1960 63 From: Juan Cazares DO PCP: IRIS Meier Status:[place] [facility] 11/22/2024 Katelyn Kamara Re : Upper GI [...] Juan Suero Signature: Date (if indicated) CC: TELEVISION NEWS VIDEO EDITOR-C Katelyn Kamara; Juan Cazares DO Date Dictated: 11/22/24 1249 Date Transcribed: Supervisor Inspecting: NELLY Signed [facility] MR/POSTOP.[facility] 11-22-2024 MR/POSTOP.[facility] Medical Records Department [address] [place] [address] Anesthesia Postop Eval I 11/22/24 1305 MR#: [id number] Acct: [id number] Name: JAYCOB CRYSTAL Rep #: [id number] : 1960 63 From: Sheila Galeana CRNA PCP: Katelyn Kamara, TELEVISION NEWS VIDEO EDITOR-C Status[place] [facility] [place] Race: C Location: [place] [address] Anesthesia: Postop Eval I Current Vital Signs [...] completed: Yes 11/22/24 1328 Date Sheila Galeana FREIGHT AGENT Cosigner Signature: Date CC: Signed Normal [facility] MR/[id number] 11-22-2024 MR/POSTOPAN2 [facility] Medical Records Department [address] [place] [address] Anesthesia Postop Eval II 11/22/24 1508 MR#: [id number] Acct: [id number] Name: JAYCOB CRYSTAL Rep #: [id number] : 1960 63 From: Norris Franks MD PCP: Katelyn Kamara TELEVISION NEWS VIDEO EDITOR-C Status:[facility] Y Race: C Location: EN Anesthesia Postop Eval I Sum Postop Eval Completion status Anesthesia document: Postop Eval 1 completed: Yes Anesthesia Postop Eval I Summary Anesthesia Postop Eval I Summary: Anesthesia Postop Eval I: Assessment Summary Airway patent Yes 11/22/24 13:06 FREIGHT AGENT.HBARR Spontaneous unlabored Yes 11/22/24 13:06 FREIGHT AGENT.HBARR respirations Mental status Awake 11/22/24 13:06 FREIGHT AGENT.HBARR nausea No 11/22/24 13:06 FREIGHT AGENT.HBARR Vomiting No 11/22/24 13:06 FREIGHT AGENT.HBARR Anesthesia Postop Eval I: Fluid Summary Crystalloid volume administer 500 11/22/24 13:06 FREIGHT AGENT.HBARR (ml) Colloids volume administered ( ml) Blood Product volume administered (ml) Total IV fluid infused 500 11/22/24 13:06 FREIGHT AGENT.HBARR Anesthesia Postop Eval I: Summary Notes Anesthesia Complication No 11/22/24 13:06 FREIGHT AGENT.HBARR Anesthesia Complication Comment: Post-operative progress note Anesthesia: Postop Eval II Evaluation Mental status: Awake Pain Level: 1 nausea: No Vomiting: No Complications Anesthesia Complication: No 11/22/24 1508 Date Norris Franks MD Cosigner Signature: Date CC: Signed Normal [facility] MR/PATGETon 11-08-2024 MR/PAT.[facility] Medical Records Department [address] [place] [address] PAT - Anesthesia 11/08/24 1546 MR#: [id number] Acct: [id number] Name: JAYCOB CRYSTAL Rep #: [id number] : 1960 63 From: Ole Booth MD PCP: IRIS Meier Status:PRE SDC Y Race: C Location: EN Pre-Assessment Diagnosis/Proposed Procedure Planned Operative Procedure(s): EGD/CSCOPE Anesthesia History 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 Hx Hospitalization Yes: 01/2024 FAINTED DUE TO [...] take am of surgery PONV PONV - 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 pump machinist: PONV - 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 pump machinist Female No 11/08/24 12:24 HX of Motion [...] 10/14/24 10:26 Respiratory Assessment Respiratory Assessment - 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 pump machinist: Respiratory Tract Infection Hx - 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 pump machinist Hx Respiratory Tract Infection No 11/08/24 12:24 STOP Sleep Apnea STOP Sleep Apnea - 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 pump machinist: STOP Sleep Apnea - 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 pump machinist Hx Hypertension No 11/08/24 12:24 Hx Sleep [...] Tobacco Use History Tobacco Use History - 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 pump machinist: Tobacco Use History - 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 pump machinist Tobacco Use Smoking Status Never smoker 11/08/24 12:24 Hx Tobacco Use No 11/08/24 12:24 Years Smoking Packs Smoked per Day Smoking Cessation Date was within the last 15 years Hx Smoking Cessation Date Hx Smoking Cessation Counseling Hematologic Medial History Hematologic Hx - 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 pump machinist: 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 Hx of Blood Transfusion No 11/08/24 12:24 [...] /Reproductio n History /Reproductiv e History - 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 pump machinist: /Reproductiv e Hx- 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 pump machinist Hx Now No 11/08/24 12:24 Gestational Age [...] 4 mg (more content not included)... Normal [facility] Absolute lymphocyte countOrd ered By: Stephanie Jenkins on 10-14-2024 Lymphocytes Auto (Unsp spec) [#/Vol] 0.86 10*3/uL 0.83-4.51 [facility] Absolute neutrophil countOrd ered By: Stephanie Jenkins on 10-14-2024 Neutrophils (Bld) [#/Vol] 4.0 10*3/uL 2.0-7.7 [facility] Automated lymphocyte count a s percentage of total leukocytesOrdered By: Stephanie Jenkins on 10-14-2024 Lymphocytes/100 WBC Auto (Unsp spec) 15.8 % Low 19-41 [facility] Basophil percentageOrdered B y: Stephanie Jenkins on 10-14-2024 Basophils/100 WBC (Bld) 0.6 % 0-1 [facility] CBC W/Diff, Automatedon 08- Absolute Lymph 0.86 X10 3/uL Normal 0.83-4.51 [facility] Comment on above: Performed By: #### L 100.0100, L503.0106, L503.6030 ####[facility] [address] [place], [address] Absolute Neut 4.0 X10 3/uL Normal 2.0-7.7 [facility] Comment on above: Performed By: #### L 100.0100, L503.0106, L503.6030 ####[facility] [address] [place], [address] Basophils/100 WBC (Bld) 0.6 % Normal 0-1 [facility] Comment on above: Performed By: #### L 100.0100, L503.0106, L503.6030 ####[facility] [address] [place], [address] Eosinophils/100 WBC (Bld) 1.1 % Normal 0-5 [facility] Comment on above: Performed By: #### L 100.0100, L503.0106, L503.6030 ####[facility] [address] [place], [address] Erythrocyte distribution width (RBC) [Ratio] 12.3 % Normal 11.6-14.6 [facility] Comment on above: Performed By: #### L 100.0100, L503.0106, L503.6030 ####[facility] [address] [place], [address] Hematocrit (Bld) [Volume fraction] 39.0 % Low 40-54 [facility] Comment on above: Performed By: #### L 100.0100, L503.0106, L503.6030 ####[facility] [address] [place], [address] Hemoglobin (Bld) [Mass/Vol] 13.3 g/dL Normal 13.0-16.5 [facility] Comment on above: Performed By: #### L 100.0100, L503.0106, L503.6030 ####[facility] [address] [place], [address] IG% 0.600 Normal 0.0-0.9 [facility] Comment on above: Result Comment: IG% - Immature Granulocytes (promyelocytes, myelocytes and metamyelocytes) > 1% indicates that a LEFT SHIFT is Present. Performed By: #### L 100.0100, L503.0106, L503.6030 ####[facility] [address] [place], [address] Lymphocytes/100 WBC (Bld) 15.8 % Low 19-41 [facility] Comment on above: Performed By: #### L 100.0100, L503.0106, L503.6030 ####[facility] [address] [place], [address] MCH (RBC) [Entitic mass] 32.8 pg High 27.0-32.0 [facility] Comment on above: Performed By: #### L 100.0100, L503.0106, L503.6030 ####[facility] [address] [place], [address] MCHC (RBC) [Mass/Vol] 34.1 g/dL Normal 32-36 [facility] Comment on above: Performed By: #### L 100.0100, L503.0106, L503.6030 ####[facility] [address] [place], [address] MCV (RBC) [Entitic vol] 96.1 fL High 80-94 [facility] Comment on above: Performed By: #### L 100.0100, L503.0106, L503.6030 ####[facility] [address] [place], [address] Monocytes/100 WBC (Bld) 9.2 % Normal 0-10 [facility] Comment on above: Performed By: #### L 100.0100, L503.0106, L503.6030 ####[facility] [address] [place], [address] Neutrophils/100 WBC (Bld) 72.7 % High 47-70 [facility] Comment on above: Performed By: #### L 100.0100, L503.0106, L503.6030 ####[facility] [address] [place], [address] Nucleated RBC (Bld) [#/Vol] 0 10*3/uL Normal 0-5 [facility] Comment on above: Performed By: #### L 100.0100, L503.0106, L503.6030 ####[facility] [address] [place], [address] Platelet mean volume (Bld) [Entitic vol] 11.5 fL Normal 6.2-12.0 [facility] Comment on above: Performed By: #### L 100.0100, L503.0106, L503.6030 ####[facility] [address] [place], [address] Platelets (Bld) [#/Vol] 151 10*3/uL Normal 150-450 [facility] Comment on above: Performed By: #### L 100.0100, L503.0106, L503.6030 ####[facility] [address] [place], [address] RBC (Bld) [#/Vol] 4.06 10*6/uL Low 4.6-6.2 [facility] Comment on above: Performed By: #### L 100.0100, L503.0106, L503.6030 ####[facility] [address] [place], [address] RDW SD 42.8 fl Normal 35.1-43.9 [facility] Comment on above: Performed By: #### L 100.0100, L503.0106, L503.6030 ####[facility] [address] [place], [address] WBC (Bld) [#/Vol] 5.5 10*3/uL Normal 4.4-11.0 [facility] Comment on above: Performed By: #### L 100.0100, L503.0106, L503.6030 ####[facility] [address] [place], [address] Eosinophil percentageOrdered By: Stephanie Jenkins on 10-14-2024 Eosinophils/100 WBC (Bld) 1.1 % 0-5 [facility] Erythrocyte distribution wid th ratioOrdered By: Stephanie Jenkins on 10-14-2024 Erythrocyte distribution width (RBC) [Ratio] 12.3 % 11.6-14.6 [facility] Erythrocyte distribution wid th standard deviationOrdered By: Stephanie Jenkins on 10-14-2024 Erythrocyte distribution width (RBC) [Ratio] 42.8 fl 35.1-43.9 [facility] Gastroenterology Visit Repor ton 10-14-2024 Gastroenterology Visit Report [facility] Gastroenterology [address] [place] [address] OFFICE VISIT Date of Service: 10/14/24 MR#: [id number] Acct: [id number] Name: JAYCOB CRYSTAL Rep #: [id number] : 1960 Provider: IRIS williamson Age/Sex: 63/M Location: [facility] Status: Signed Intake Vital Signs 02/02/24 11:04 10/14/24 10:26 Height 5 ft 10 in 5 ft 10 in Weight: 148 lb 8 oz BMI 21.3 BP 98/66 Respiration 16 Pulse 96 Temp 93 F L Temp Source Temporal Pulse Oximetry (%) 93 Oxygen Delivery Method room air Intake Visit Reasons: Anemia/Reflux Chief Complaint: reflux Vegetable Inspector Required: No Accompanied by: Self Is patient [...] 10/14/24 10/14/24 Hist ory tablet peg 3350-sod sulf,vbiou-pjf-loo See Rx Instructions PO .COMPLEX #2 10/14/24 [...] blood/hematemesis, Blo (more content not included)... Normal [facility] Hematocrit Auto (Bld) [Volum e fraction]Ordered By: Stephanie Jenkins on 10-14-2024 Hematocrit (Bld) [Volume fraction] 39.0 % Low 40-54 [facility] Hemoglobin measurementOrdere d By: Stephanie Jenkins on 10-14-2024 Hemoglobin (Bld) [Mass/Vol] 13.3 g/dL 13.0-16.5 [facility] Immature granulocytes/100 WB C Auto (Bld)Ordered By: Stephanie Jenkins on 10-14-2024 Immature granulocytes/100 WBC (Bld) 0.600 % 0.0-0.9 [facility] Comment on above: IG% - Immature Granu locytes (promyelocytes, myelocytes and metamyelocytes) > 1% indicates that a LEFT SHIFT is Present. Iron measurement (mass/mass) Ordered By: Stephanie Jenkins on 10-14-2024 Iron (Unsp spec) [Mass/Mass] 78 ug/dL 65-175 [facility] Iron+Iron Binding Capacityon 10-14-2024 TIBC 209 ug/dL Low 250-450 [facility] Comment on above: Performed By: #### L 100.0100, L503.0106, L503.6030 ####[facility] [address] [place], [address] MCV (mean corpuscular volume ) determinationOrdered By: Stephanie Jenkins on 10-14-2024 MCV (RBC) [Entitic vol] 96.1 fL High 80-94 [facility] Mean corpuscular hemoglobin (MCH) determinationOrdered By: Stephanie Jenkins on 10-14-2024 MCH (RBC) [Entitic mass] 32.8 pg High 27.0-32.0 [facility] Mean corpuscular hemoglobin concentration (MCHC) determinationOrdered By: Stephanie Jenkins on 10-14-2024 MCHC (RBC) [Mass/Vol] 34.1 g/dL 32-36 [facility] Mean platelet volume determi nationOrdered By: Stephanie Jenkins on 10-14-2024 Platelet mean volume (Bld) [Entitic vol] 11.5 fL 6.2-12.0 [facility] Monocyte percentageOrdered B y: Stephanie Jenkins on 10-14-2024 Monocytes/100 WBC (Bld) 9.2 % 0-10 [facility] Neutrophil percentageOrdered By: Stephanie Jenkins on 10-14-2024 Neutrophils/100 WBC (Bld) 72.7 % High 47-70 [facility] No Panel InformationOrdered By: Stephanie Jenkins on 10-14-2024 Unsaturated Iron Binding Capacity 131 ug/dL Low 228-428 [facility] Nucleated red blood cell per centageOrdered By: Stephanie Jenkins on 10-14-2024 Nucleated RBC/100 WBC (Bld) [Ratio] 0 % 0-5 [facility] Platelet countOrdered By: Rc Jenkins on 10-14-2024 Platelets (Bld) [#/Vol] 151 10*3/uL 150-450 [facility] RBC Auto (Bld) [#/Vol]Ordere d By: Stephanie Jenkins on 10-14-2024 RBC (Bld) [#/Vol] 4.06 10*6/uL Low 4.6-6.2 [facility] Serum or plasma iron saturat ion measurement (mass fraction)Ordered By: Stephanie Jenkins on 10-14-2024 Iron saturation [Mass fraction] 37.3 % 9-55 [facility] Comment on above: Previous reported re sult: 37.0 %Edited by: SAMREEN on 10/14/24:1243 AMENDED REPORT 10/14/24 1243 IRON SATURATION previously reported as: 37.0 % Vitamin B12on 10-14-2024 Cobalamin (Vitamin B12) [Mass/Vol] 871 pg/mL Normal 180-914 [facility] Comment on above: Performed By: #### L 100.0100, L503.0106, L503.6030 ####[facility] [address] [place], [address] Vitamin B12 ser/plasOrdered By: Stephanie Jenkins on 10-14-2024 Cobalamin (Vitamin B12) [Mass/Vol] 871 pg/mL 180-914 [facility] White blood cell (WBC) count Ordered By: Stephanie Jenkins on 10-14-2024 WBC (Bld) [#/Vol] 5.5 10*3/uL 4.4-11.0 [facility] Discharge Instructionon 0 Discharge Instruction [facility] Medical Records Department [address] [place] [address] Instructions for Home/Discharge Instructions 02/04/24 1209 MR#: [id number] Acct: [id number] Name: JAYCOB CRYSTAL Rep #: [id number] : 1960 63 From: Yan Pan DO [...] Primary [Primary Care Provider] - Christian Quintero TELEVISION NEWS VIDEO EDITOR, TELEVISION NEWS VIDEO EDITOR-C [Non-Staff] - Disposition Disposition (needs filled in before D/C Order can be placed): Assisted Living 02/04/24 1222 Yan Pan DO CC: Dr. Chucho Meyer MD; Dr. Landen Adorno MD; Dr. Tasha Queen MD; No Primary Care Physician Signed Normal [facility] Basic Metabolic Profile (BMP )on 02-03-2024 BUN/CRE 12.4 RATIO Normal 10-20 [facility] Comment on above: Performed By: #### L 100.0500, L500.2500 ####[facility] [address] [place], [address] CA,Total 8.9 mg/dL Normal 8.5-10.1 [facility] Comment on above: Performed By: #### L 100.0500, L500.2500 ####[facility] [address] [place], [address] Chloride [Moles/Vol] 104 mmol/L Normal 98-107 [facility] Comment on above: Performed By: #### L 100.0500, L500.2500 ####[facility] [address] [place], [address] CO2 [Moles/Vol] 33.0 mmol/L High 21.0-32.0 [facility] Comment on above: Performed By: #### L 100.0500, L500.2500 ####[facility] [address] [place], [address] Creatinine [Mass/Vol] 1.13 mg/dL Normal 0.70-1.30 [facility] Comment on above: Result Comment: The validity of the calculated GFR GFRAA in patients over 70 years has not been determined. Clinical correlation is essential. Performed By: #### L 100.0500, L500.2500 ####[facility] [address] [place], [address] ECRCL 55.22 ml/min Normal [facility] Comment on above: Performed By: #### L 100.0500, L500.2500 ####[facility] [address] [place], [address] EST GFR - AA 84 mL/min Normal >60 [facility] Comment on above: Result Comment: Afri can Nigerian GFR Calc Performed By: #### L 100.0500, L500.2500 ####[facility] [address] [place], [address] GAP 5 Normal 5-15 [facility] Comment on above: Performed By: #### L 100.0500, L500.2500 ####[facility] [address] [place], [address] GFR/1.73 sq M.predicted among non-blacks MDRD (S/P/Bld) [Vol rate/Area] 69 mL/min/{1.73_m2} Normal >60 [facility] Comment on above: Result Comment: Non- GFR Calc Performed By: #### L 100.0500, L500.2500 ####[facility] [address] [place], [address] Glucose [Mass/Vol] 91 mg/dL Normal 74-106 [facility] Comment on above: Performed By: #### L 100.0500, L500.2500 ####[facility] [address] [place], [address] Potassium [Moles/Vol] 4.0 mmol/L Normal 3.5-5.1 [facility] Comment on above: Performed By: #### L 100.0500, L500.2500 ####[facility] [address] [place], [address] Sodium [Moles/Vol] 141 mmol/L Normal 136-145 [facility] Comment on above: Performed By: #### L 100.0500, L500.2500 ####[facility] [address] [place], [address] Urea nitrogen [Mass/Vol] 14 mg/dL Normal 7-18 [facility] Comment on above: Performed By: #### L 100.0500, L500.2500 ####[facility] [address] [place], [address] CBC-Complete Blood Cnt No Di ffon 02-03-2024 Erythrocyte distribution width (RBC) [Ratio] 12.4 % Normal 11.6-14.6 [facility] Comment on above: Performed By: #### L 100.0500, L500.2500 ####[facility] [address] [place], [address] Hematocrit (Bld) [Volume fraction] 38.4 % Low 40-54 [facility] Comment on above: Performed By: #### L 100.0500, L500.2500 ####[facility] [address] [place], [address] Hemoglobin (Bld) [Mass/Vol] 12.9 g/dL Low 13.0-16.5 [facility] Comment on above: Performed By: #### L 100.0500, L500.2500 ####[facility] [address] [place], [address] MCH (RBC) [Entitic mass] 33.7 pg High 27.0-32.0 [facility] Comment on above: Performed By: #### L 100.0500, L500.2500 ####[facility] [address] [place], [address] MCHC (RBC) [Mass/Vol] 33.6 g/dL Normal 32-36 [facility] Comment on above: Performed By: #### L 100.0500, L500.2500 ####[facility] [address] [place], [address] MCV (RBC) [Entitic vol] 100.3 fL High 80-94 [facility] Comment on above: Performed By: #### L 100.0500, L500.2500 ####[facility] [address] [place], [address] Platelet mean volume (Bld) [Entitic vol] 11.2 fL Normal 6.2-12.0 [facility] Comment on above: Performed By: #### L 100.0500, L500.2500 ####[facility] [address] [place], [address] Platelets (Bld) [#/Vol] 145 10*3/uL Low 150-450 [facility] Comment on above: Performed By: #### L 100.0500, L500.2500 ####[facility] [address] [place], [address] RBC (Bld) [#/Vol] 3.83 10*6/uL Low 4.6-6.2 [facility] Comment on above: Performed By: #### L 100.0500, L500.2500 ####[facility] [address] [place], [address] RDW SD 45.9 fl High 35.1-43.9 [facility] Comment on above: Performed By: #### L 100.0500, L500.2500 ####[facility] [address] [place], [address] WBC (Bld) [#/Vol] 5.2 10*3/uL Normal 4.4-11.0 [facility] Comment on above: Performed By: #### L 100.0500, L500.2500 ####[facility] [address] [place], [address] Basic Metabolic Profile (BMP )on 02-02-2024 BUN/CRE 14.6 RATIO Normal 10-20 [facility] Comment on above: Performed By: #### L 500.2500, L501.9520, L100.0100 #### [facility] [address] [place], [address] CA,Total 8.2 mg/dL Low 8.5-10.1 [facility] Comment on above: Performed By: #### L 500.2500, L501.9520, L100.0100 #### [facility] [address] [place], [address] Chloride [Moles/Vol] 108 mmol/L High 98-107 [facility] Comment on above: Performed By: #### L 500.2500, L501.9520, L100.0100 #### [facility] [address] [place], [address] CO2 [Moles/Vol] 29.0 mmol/L Normal 21.0-32.0 [facility] Comment on above: Performed By: #### L 500.2500, L501.9520, L100.0100 #### [facility] [address] [place], [address] Creatinine [Mass/Vol] 1.03 mg/dL Normal 0.70-1.30 [facility] Comment on above: Result Comment: The validity of the calculated GFR GFRAA in patients over 70 years has not been determined. Clinical correlation is essential. Performed By: #### L 500.2500, L501.9520, L100.0100 #### [facility] [address] [place], [address] ECRCL 60.58 ml/min Normal [facility] Comment on above: Performed By: #### L 500.2500, L501.9520, L100.0100 #### [facility] [address] [place], [address] EST GFR - AA 93 mL/min Normal >60 [facility] Comment on above: Result Comment: Afri can Nigerian GFR Calc Performed By: #### L 500.2500, L501.9520, L100.0100 #### [facility] [address] [place], [address] GAP 4 Low 5-15 [facility] Comment on above: Performed By: #### L 500.2500, L501.9520, L100.0100 #### [facility] [address] [place], [address] GFR/1.73 sq M.predicted among non-blacks MDRD (S/P/Bld) [Vol rate/Area] 77 mL/min/{1.73_m2} Normal >60 [facility] Comment on above: Result Comment: Non- GFR Calc Performed By: #### L 500.2500, L501.9520, L100.0100 #### [facility] [address] [place], [address] Glucose [Mass/Vol] 106 mg/dL Normal 74-106 [facility] Comment on above: Result Comment: Fast ing Glucose result from 100 to 125 mg/dL suggests IMPAIRED HOMEOSTASIS per A.D.A. criteria. Performed By: #### L 500.2500, L501.9520, L100.0100 #### [facility] [address] [place], [address] Potassium [Moles/Vol] 3.6 mmol/L Normal 3.5-5.1 [facility] Comment on above: Performed By: #### L 500.2500, L501.9520, L100.0100 #### [facility] [address] [place], [address] Sodium [Moles/Vol] 141 mmol/L Normal 136-145 [facility] Comment on above: Performed By: #### L 500.2500, L501.9520, L100.0100 #### [facility] [address] [place], [address] Urea nitrogen [Mass/Vol] 15 mg/dL Normal 7-18 [facility] Comment on above: Performed By: #### L 500.2500, L501.9520, L100.0100 #### [facility] [address] [place], [address] CBC W/Diff, Automatedon 12-0 6-4 Absolute Lymph 0.86 X10 3/uL Normal 0.83-4.51 [facility] Comment on above: Performed By: #### L 500.2500, L501.9520, L100.0100 #### [facility] [address] [place], [address] Absolute Neut 4.2 X10 3/uL Normal 2.0-7.7 [facility] Comment on above: Performed By: #### L 500.2500, L501.9520, L100.0100 #### [facility] [address] [place], [address] Basophils/100 WBC (Bld) 0.3 % Normal 0-1 [facility] Comment on above: Performed By: #### L 500.2500, L501.9520, L100.0100 #### [facility] [address] [place], [address] Eosinophils/100 WBC (Bld) 2.0 % Normal 0-5 [facility] Comment on above: Performed By: #### L 500.2500, L501.9520, L100.0100 #### [facility] [address] [place], [address] Erythrocyte distribution width (RBC) [Ratio] 12.4 % Normal 11.6-14.6 [facility] Comment on above: Performed By: #### L 500.2500, L501.9520, L100.0100 #### [facility] [address] [place], [address] Hematocrit (Bld) [Volume fraction] 33.9 % Low 40-54 [facility] Comment on above: Performed By: #### L 500.2500, L501.9520, L100.0100 #### [facility] [address] [place], [address] Hemoglobin (Bld) [Mass/Vol] 11.5 g/dL Low 13.0-16.5 [facility] Comment on above: Performed By: #### L 500.2500, L501.9520, L100.0100 #### [facility] [address] [place], [address] IG% 0.300 Normal 0.0-0.9 [facility] Comment on above: Result Comment: IG% - Immature Granulocytes (promyelocytes, myelocytes and metamyelocytes) > 1% indicates that a LEFT SHIFT is Present. Performed By: #### L 500.2500, L501.9520, L100.0100 #### [facility] [address] [place], [address] Lymphocytes/100 WBC (Bld) 14.5 % Low 19-41 [facility] Comment on above: Performed By: #### L 500.2500, L501.9520, L100.0100 #### [facility] [address] [place], [address] MCH (RBC) [Entitic mass] 33.6 pg High 27.0-32.0 [facility] Comment on above: Performed By: #### L 500.2500, L501.9520, L100.0100 #### [facility] [address] [place], [address] MCHC (RBC) [Mass/Vol] 33.9 g/dL Normal 32-36 [facility] Comment on above: Performed By: #### L 500.2500, L501.9520, L100.0100 #### [facility] [address] [place], [address] MCV (RBC) [Entitic vol] 99.1 fL High 80-94 [facility] Comment on above: Performed By: #### L 500.2500, L501.9520, L100.0100 #### [facility] [address] [place], [address] Monocytes/100 WBC (Bld) 12.6 % High 0-10 [facility] Comment on above: Performed By: #### L 500.2500, L501.9520, L100.0100 #### [facility] [address] [place], [address] Neutrophils/100 WBC (Bld) 70.3 % High 47-70 [facility] Comment on above: Performed By: #### L 500.2500, L501.9520, L100.0100 #### [facility] [address] [place], [address] Nucleated RBC (Bld) [#/Vol] 0 10*3/uL Normal 0-5 [facility] Comment on above: Performed By: #### L 500.2500, L501.9520, L100.0100 #### [facility] [address] [place], [address] Platelet mean volume (Bld) [Entitic vol] 11.8 fL Normal 6.2-12.0 [facility] Comment on above: Performed By: #### L 500.2500, L501.9520, L100.0100 #### [facility] [address] [place], [address] Platelets (Bld) [#/Vol] 149 10*3/uL Low 150-450 [facility] Comment on above: Performed By: #### L 500.2500, L501.9520, L100.0100 #### [facility] [address] [place], [address] RBC (Bld) [#/Vol] 3.42 10*6/uL Low 4.6-6.2 [facility] Comment on above: Performed By: #### L 500.2500, L501.9520, L100.0100 #### [facility] [address] [place], [address] RDW SD 45.1 fl High 35.1-43.9 [facility] Comment on above: Performed By: #### L 500.2500, L501.9520, L100.0100 #### [facility] [address] [place], [address] WBC (Bld) [#/Vol] 5.9 10*3/uL Normal 4.4-11.0 [facility] Comment on above: Performed By: #### L 500.2500, L501.9520, L100.0100 #### [facility] [address] [place], [address] Consultation - Cardiologyon 02-02-2024 Consultation - Cardiology [facility] Medical Records Department [address] [place] [address] Consultation - Cardiology 02/02/24 0948 MR#: [id number] Acct: [id number] Name: JAYCOB CRYSTAL Rep #: [id number] : 1960 63 From: Landen Adorno MD PCP: Care Physician,No Primary Status:ADM IN Location: [place] [address] Assessment Plan Assessment/Plan (1) Syncope: QUALIFIERS: Syncope [...] modifying drugs including Aricept and multiple antidepressants. [facility] Medical History Acute insomnia GERD [...] Reports systems (more content not included)... Normal [facility] Thyroid Stim Hormone (TSH)on 02-02-2024 TSH 1.080 uIU/mL Normal 0.358-3.740 [facility] Comment on above: Performed By: #### L 500.2500, L501.9520, L100.0100 #### [facility] [address] [place], [address] 12 Lead EKGon 02-01-2024 12 Lead EKG [facility] Cardiovascular Services [address] [place] [address] 12 Lead EKG 02/01/24 1648 MR#: [id number] Acct: [id number] Name: JAYCOB CRYSTAL Rep #: [id number] : 1960 63 From: Landen Adorno MD Attending Dr: Dr. Chucho Meyer MD Status: ADM IN Ordering Dr: Romina Fernandez Date: 02/01/24 Location: [facility] Sex: M C Admitted: 02/01/24 Test [...] abnormality Abnormal ECG Confirmed by Landen Adorno ([id number]), online content editor ARABELLA MITCHELL ([id number]) on 02/02/2024 1:41:32 PM Referred By: Rambo Mora Confirmed By: Landen Adorno 02/02/24 1341 Date Landen Adorno MD CC: Dr. Chucho Meyer MD; Dr. Rambo Mora DO; PAXTON Sherdian; No Primary Care Physician Signed Normal [facility] Basic Metabolic Profile (BMP )on 02-01-2024 BUN/CRE 12.9 RATIO Normal 10-20 [facility] Comment on above: Order Comment: 1Y Performed By: #### L 100.0100, L500.2500, L501.5425 ####[facility] [address] [place], [address] CA,Total 9.3 mg/dL Normal 8.5-10.1 [facility] Comment on above: Order Comment: 1Y Performed By: #### L 100.0100, L500.2500, L501.5425 ####[facility] [address] [place], [address] Chloride [Moles/Vol] 99 mmol/L Normal 98-107 [facility] Comment on above: Order Comment: 1Y Performed By: #### L 100.0100, L500.2500, L501.5425 ####[facility] [address] [place], [address] CO2 [Moles/Vol] 31.0 mmol/L Normal 21.0-32.0 [facility] Comment on above: Order Comment: 1Y Performed By: #### L 100.0100, L500.2500, L501.5425 ####[facility] [address] [place], [address] Creatinine [Mass/Vol] 1.71 mg/dL High 0.70-1.30 [facility] Comment on above: Order Comment: 1Y Result Comment: The validity of the calculated GFR GFRAA in patients over 70 years has not been determined. Clinical correlation is essential. Performed By: #### L 100.0100, L500.2500, L501.5425 ####[facility] [address] [place], [address] ECRCL 36.47 ml/min Normal [facility] Comment on above: Order Comment: 1Y Performed By: #### L 100.0100, L500.2500, L501.5425 ####[facility] [address] [place], [address] EST GFR - AA 52 mL/min Low >60 [facility] Comment on above: Order Comment: 1Y Result Comment: Afri can Nigerian GFR Calc Performed By: #### L 100.0100, L500.2500, L501.5425 ####[facility] [address] [place], [address] GAP 7 Normal 5-15 [facility] Comment on above: Order Comment: 1Y Performed By: #### L 100.0100, L500.2500, L501.5425 ####[facility] [address] [place], [address] GFR/1.73 sq M.predicted among non-blacks MDRD (S/P/Bld) [Vol rate/Area] 43 mL/min/{1.73_m2} Low >60 [facility] Comment on above: Order Comment: 1Y Result Comment: Non- GFR Calc Performed By: #### L 100.0100, L500.2500, L501.5425 ####[facility] [address] [place], [address] Glucose [Mass/Vol] 165 mg/dL High 74-106 [facility] Comment on above: Order Comment: 1Y Result Comment: Fast ing Glucose result greater than or equal to 126 mg/dL suggests DIABETES MELLITUS per A.D.A. criteria. Performed By: #### L 100.0100, L500.2500, L501.5425 ####[facility] [address] [place], [address] Potassium [Moles/Vol] 4.0 mmol/L Normal 3.5-5.1 [facility] Comment on above: Order Comment: 1Y Performed By: #### L 100.0100, L500.2500, L501.5425 ####[facility] [address] [place], [address] Sodium [Moles/Vol] 137 mmol/L Normal 136-145 [facility] Comment on above: Order Comment: 1Y Performed By: #### L 100.0100, L500.2500, L501.5425 ####[facility] [address] [place], [address] Urea nitrogen [Mass/Vol] 22 mg/dL High 7-18 [facility] Comment on above: Order Comment: 1Y Performed By: #### L 100.0100, L500.2500, L501.5425 ####[facility] [address] [place], [address] Brain/Head without Contrasto n 02-01-2024 Brain/Head without Contrast [facility] Imaging Services [address] [place] [address] Brain/Head without Contrast MR#: [id number] Acct: [id number] Name: JAYCOB CRYSTAL Rep #: [id number] : 1960 Heriberto Pena From: Levi Jenkins DO PCP: IRIS Vincent Status: PRE ER Study: Brain/Head without Contrast Date of Exam: 07/20 Exam# [id number] Ordering Dr: Romina Fernandez [id number] STUDY: CT BRAIN WITHOUT CONTRAST REASON FOR [...] 16:39 EST Reading Location ID and State: [facility] / [place] Tel [phone], Service support , CC: IRIS Quintero; PAXTON Sheridan Supervisor Inspecting: Signed Normal [facility] CBC W/Diff, Automatedon 12-0 Absolute Lymph 0.56 X10 3/uL Low 0.83-4.51 [facility] Comment on above: Performed By: #### L 100.0100, L500.2500, L501.5425 #### [facility] Laboratory [address] [place], [address] Absolute Neut 4.9 X10 3/uL Normal 2.0-7.7 [facility] Comment on above: Performed By: #### L 100.0100, L500.2500, L501.5425 #### [facility] [address] [place], [address] Basophils/100 WBC (Bld) 0.7 % Normal 0-1 [facility] Comment on above: Performed By: #### L 100.0100, L500.2500, L501.5425 #### [facility] [address] [place], [address] Eosinophils/100 WBC (Bld) 0.7 % Normal 0-5 [facility] Comment on above: Performed By: #### L 100.0100, L500.2500, L501.5425 #### [facility] [address] [place], [address] Erythrocyte distribution width (RBC) [Ratio] 12.2 % Normal 11.6-14.6 [facility] Comment on above: Performed By: #### L 100.0100, L500.2500, L501.5425 #### [facility] [address] [place], [address] Hematocrit (Bld) [Volume fraction] 43.0 % Normal 40-54 [facility] Comment on above: Performed By: #### L 100.0100, L500.2500, L501.5425 #### [facility] [address] [place], [address] Hemoglobin (Bld) [Mass/Vol] 14.7 g/dL Normal 13.0-16.5 [facility] Comment on above: Performed By: #### L 100.0100, L500.2500, L501.5425 #### [facility] [address] [place], [address] IG% 0.500 Normal 0.0-0.9 [facility] Comment on above: Result Comment: IG% - Immature Granulocytes (promyelocytes, myelocytes and metamyelocytes) > 1% indicates that a LEFT SHIFT is Present. Performed By: #### L 100.0100, L500.2500, L501.5425 #### [facility] [address] [place], [address] Lymphocytes/100 WBC (Bld) 9.4 % Low 19-41 [facility] Comment on above: Performed By: #### L 100.0100, L500.2500, L501.5425 #### [facility] [address] [place], [address] MCH (RBC) [Entitic mass] 33.7 pg High 27.0-32.0 [facility] Comment on above: Performed By: #### L 100.0100, L500.2500, L501.5425 #### [facility] [address] [place], [address] MCHC (RBC) [Mass/Vol] 34.2 g/dL Normal 32-36 [facility] Comment on above: Performed By: #### L 100.0100, L500.2500, L501.5425 #### [facility] [address] [place], [address] MCV (RBC) [Entitic vol] 98.6 fL High 80-94 [facility] Comment on above: Performed By: #### L 100.0100, L500.2500, L501.5425 #### [facility] [address] [place], [address] Monocytes/100 WBC (Bld) 6.9 % Normal 0-10 [facility] Comment on above: Performed By: #### L 100.0100, L500.2500, L501.5425 #### [facility] [address] [place], [address] Neutrophils/100 WBC (Bld) 81.8 % High 47-70 [facility] Comment on above: Performed By: #### L 100.0100, L500.2500, L501.5425 #### [facility] [address] [place], [address] Nucleated RBC (Bld) [#/Vol] 0 10*3/uL Normal 0-5 [facility] Comment on above: Performed By: #### L 100.0100, L500.2500, L501.5425 #### [facility] [address] [place], [address] Platelet mean volume (Bld) [Entitic vol] 11.7 fL Normal 6.2-12.0 [facility] Comment on above: Performed By: #### L 100.0100, L500.2500, L501.5425 #### [facility] [address] [place], [address] Platelets (Bld) [#/Vol] 209 10*3/uL Normal 150-450 [facility] Comment on above: Performed By: #### L 100.0100, L500.2500, L501.5425 #### [facility] [address] [place], [address] RBC (Bld) [#/Vol] 4.36 10*6/uL Low 4.6-6.2 [facility] Comment on above: Performed By: #### L 100.0100, L500.2500, L501.5425 #### [facility] [address] [place], [address] RDW SD 44.7 fl High 35.1-43.9 [facility] Comment on above: Performed By: #### L 100.0100, L500.2500, L501.5425 #### [facility] [address] [place], [address] WBC (Bld) [#/Vol] 5.9 10*3/uL Normal 4.4-11.0 [facility] Comment on above: Performed By: #### L 100.0100, L500.2500, L501.5425 #### [facility] [address] [place], [address] Chest PA and Lateralon 01-31 Chest PA and Lateral [facility] Imaging Services [address] [place] [address] Chest PA and Lateral MR#: [id number] Acct: [id number] Name: JAYCOB CRYSTAL Rep #: [id number] : 1960 M 63 From: Levi Jenkins DO PCP: Care Physician,No Primary Status: [facility] ER Study: Chest PA and Lateral Date of Exam: 02/01/24 Exam# [id number] Ordering Dr: Romina Fernandez [id number] INDICATION: chest pain EXAMINATION/TECHNIQUE : X-RAY - [...] CC: PAXTON Sheridan; No Primary Care Physician Supervisor Inspecting: Signed Normal [facility] Echo Completeon 02-01-2024 Echo Complete [facility] [place] [address] Echo Complete 02/02/24 1112 MR#: [id number] Acct: [id number] Name: JAYCOB CRYSTAL Rep #: [id number] : 1960 63 From: Ross Espitia MD Attending Dr: Dr. Chucho Meyer MD Status: ADM IN Ordering Dr: Tasha Queen MD Date: 02/01/24 Location: [facility] Sex: M C Admitted: 02/01/24 Reason [...] Date Dictated: 02/02/24 1112 Date Transcribed: 02/02/241437 Supervisor Inspecting: Signed Normal [facility] Emergency Department Summary on 02-01-2024 Emergency Department Summary [facility] Medical Records Department [address] [place] [address] Emergency Department Summary 02/01/24 MR#: [id number] Acct: [id number] Name: JAYCOB CRYSTAL Rep #: [id number] : 1960 63 From: Romina MATTA PCP: Care Physician,No Primary Status:ADM IN Location: [address] History of Present Illness Chief Complaint: [...] illness, fevers, chills, abdominal pain, nausea, vomiting. [facility] Medical History Acute insomnia GERD (gastroesophageal [...] well de (more content not included)... Normal [facility] H AND P Exam - Hospitaliston 02-01-2024 H&P Exam - Hospitalist [facility] Medical Records Department [address] [place] [address] H P Exam - Hospitalist 02/01/24 1801 MR#: [id number] Acct: [id number] Name: JAYCOB CRYSTAL Connie Rep #: [id number] : 1960 63 From: Tasha Queen MD PCP: Care Physician,No Primary Status:REG ER Location: ED HPI - General General Date of Admission: 02/01/24 Date of Service: 02/01/24 Chief Complaint: Syncope x2 HPI Narrative JAYCOBDesirae CRYSTAL, is a 63-year-old male history of depression, GERD, and insomnia who presented [facility] ED 02/01/2024 with 2 syncopal episodes. [...] is been worse since he moved to [facility] last month because of the portion sizes. [...] in. Denies any alcohol, tobacco, substance use [facility] Medical History Acute insomnia GERD [...] obtaining)] Respira (more content not included)... Normal [facility] L501.4020on 02-01-2024 TROPONIN-I HS 15 pg/mL Normal 3.0-78.0 [facility] Comment on above: Result Comment: Tres gil Note: New Test Units and Gender Specific Reference Ranges. For more information see Policy Stat Procedure [place] High Sensitivity Troponin (TNIH) and attachments. Performed By: #### L 501.3851 ####[facility] [address] [place], [address] L501.5425on 02-01-2024 TROPONIN-I HS 6 pg/mL Normal 3.0-78.0 [facility] Comment on above: Order Comment: 1Y Result Comment: Tres gil Note: New Test Units and Gender Specific Reference Ranges. For more information see Policy Stat Procedure [place] High Sensitivity Troponin (TNIH) and attachments. Performed By: #### L 100.0100, L500.2500, L501.5425 ####[facility] [address] [place], [place], [address] Spine Cervical without Contr ason 02-01-2024 Spine Cervical without Contras [facility] Imaging Services [address] [place] [address] Spine Cervical without Contras MR#: [id number] Acct: [id number] Name: JAYCOB CRYSTAL Rep #: [id number] : 1960 M 63 From: Levi Jenkins DO PCP: Care Physician,No Primary Status: REG ER Study: Spine Cervical without Contras Date of Exam: 04/03/23 Exam# [id number] Ordering Dr: Romina Fernandez [id number] STUDY: CT CERVICAL SPINE WITHOUT CONTRAST REASON [...] 16:50 EST Reading Location ID and State: [facility] / [place] Tel [phone], Service support , CC: PAXTON Sheridan; No Primary Care Physician Supervisor Inspecting: Signed Normal [facility] .GFRon 12-22-2023 GFR 64 ml/min/1.73sqm Normal [facility] Comment on above: Result Comment: GFR Population [...] #### G FR, LIPID, CMP, FE #### [address] [address] #### FOL, B12 #### [address] [address] GFR Non- 53 ml/min/1.73sqm Normal [facility] Comment on above: Result Comment: GFR Population [...] #### G FR, LIPID, CMP, FE #### [address] [address] #### FOL, B12 #### [address] [address] B12on 12-22-2023 Cobalamin (Vitamin B12) [Mass/Vol] 646 pg/mL Normal 211-911 [facility] Comment on above: Performed By: #### G FR, LIPID, CMP, FE #### [address] [address] #### FOL, B12 #### [address] [address] CMPon 12-22-2023 Albumin Level 4.0 G/dL Normal 3.4-4.8 [facility] Comment on above: Performed By: #### G FR, LIPID, CMP, FE #### [address] [address] #### FOL, B12 #### [address] [address] Albumin/Globulin [Mass ratio] 1.5 {ratio} Normal 1.1-2.5 [facility] Comment on above: Performed By: #### G FR, LIPID, CMP, FE #### [place] [address] #### FOL, B12 #### [address] [address] ALP [Catalytic activity/Vol] 76 U/L Normal 40-135 [facility] Comment on above: Performed By: #### G FR, LIPID, CMP, FE #### [place] [address] #### FOL, B12 #### [place] [address] ALT [Catalytic activity/Vol] 53 U/L Normal 16-63 [facility] Comment on above: Performed By: #### G FR, LIPID, CMP, FE #### [place] [address] #### FOL, B12 #### [address] [address] AST [Catalytic activity/Vol] 85 U/L High 10-40 [facility] Comment on above: Performed By: #### G FR, LIPID, CMP, FE #### [place] [address] #### FOL, B12 #### [place] [address] Bili Total 1.1 mg/dL High 0.2-1.0 [facility] Comment on above: Result Comment: Use of this assay is not recommended for patients undergoing treatment with eltrombopag due to the potential for falsely elevated results. Performed By: #### G FR, LIPID, CMP, FE #### [place] [address] #### FOL, B12 #### [address] [address] BUN/Creatinine Ratio 13 ratio Normal 7-27 [facility] Comment on above: Performed By: #### G FR, LIPID, CMP, FE #### [address] [address] #### FOL, B12 #### [address] [address] Calcium [Mass/Vol] 9.2 mg/dL Normal 8.4-10.2 [facility] Comment on above: Performed By: #### G FR, LIPID, CMP, FE #### [place] [address] #### FOL, B12 #### [address] [address] Chloride [Moles/Vol] 99 mmol/L Normal 98-107 [facility] Comment on above: Performed By: #### G FR, LIPID, CMP, FE #### [place] [address] #### FOL, B12 #### [address] [address] CO2 [Moles/Vol] 36 mmol/L High 23-31 [facility] Comment on above: Performed By: #### G FR, LIPID, CMP, FE #### [place] [address] #### FOL, B12 #### [address] [address] Creatinine [Mass/Vol] 1.36 mg/dL High 0.70-1.30 [facility] Comment on above: Result Comment: Test ing performed on Siemens Dimension EXL analyzer using a modified kinetic Tarik technique. Performed By: #### G FR, LIPID, CMP, FE #### [place] [address] #### FOL, B12 #### [address] [address] Electrolyte Balance 2.0 mEq/L Low 4.0-15.0 [facility] Comment on above: Performed By: #### G FR, LIPID, CMP, FE #### [place] [address] #### FOL, B12 #### [address] [address] Globulin 2.7 G/dL Normal [facility] Comment on above: Performed By: #### G FR, LIPID, CMP, FE #### [address] [address] #### FOL, B12 #### [address] [address] Glucose [Mass/Vol] 140 mg/dL High 80-115 [facility] Comment on above: Performed By: #### G FR, LIPID, CMP, FE #### [address] [address] #### FOL, B12 #### [address] [address] Potassium [Moles/Vol] 4.0 mmol/L Normal 3.5-5.1 [facility] Comment on above: Performed By: #### G FR, LIPID, CMP, FE #### [place] [address] #### FOL, B12 #### [address] [address] Sodium [Moles/Vol] 137 mmol/L Normal 136-145 [facility] Comment on above: Performed By: #### G FR, LIPID, CMP, FE #### [address] [address] #### FOL, B12 #### [address] [address] Total Protein 6.7 G/dL Normal 6.4-8.2 [facility] Comment on above: Performed By: #### G FR, LIPID, CMP, FE #### [address] [address] #### FOL, B12 #### [address] [address] Urea nitrogen [Mass/Vol] 18 mg/dL Normal 7-18 [facility] Comment on above: Performed By: #### G FR, LIPID, CMP, FE #### [address] [address] #### FOL, B12 #### [address] [address] FEon 12-22-2023 Iron [Mass/Vol] 55 ug/dL Low 65-175 [facility] Comment on above: Performed By: #### G FR, LIPID, CMP, FE #### [place] [address] #### FOL, B12 #### [address] [address] [place] 12-22-2023 Ferritin [Mass/Vol] 313.0 ng/mL Normal 26.0-388.0 [facility] Comment on above: Performed By: #### F ERR, PSA #### [place] [id number] FOL 12-22-2023 Folate 22.26 ng/mL Normal 5.38-24.00 [facility] Comment on above: Performed By: #### G FR, LIPID, CMP, FE #### [place] [address] #### FOL, B12 #### [place] [address] LABORATORYOrdered By: SYSTEM SYSTEM on 12-22-2023 Ferritin [...] 12-22-2023 Cholesterol [Mass/Vol] 131 mg/dL Normal 0-200 [facility] Comment on above: Result Comment: Chol esterol Reference Interval: Less than 200 Desirable 200-239 Borderline high risk 240 and above High risk Performed By: #### G FR, LIPID, CMP, FE #### [address] [address] #### FOL, B12 #### [address] [address] Cholesterol in HDL [Mass/Vol] 93 mg/dL High 40-60 [facility] Comment on above: Performed By: #### G FR, LIPID, CMP, FE #### [place] [address] #### FOL, B12 #### [address] [address] LDL Cholesterol Not Valid Normal 0-130 [facility] Comment on above: Result Comment: Trig lyceride >400 invalidates the calculated LDL. Performed By: #### G FR, LIPID, CMP, FE #### [address] [address] #### FOL, B12 #### [address] [address] Triglyceride [Mass/Vol] mg/dL Normal 0-150 [facility] Comment on above: Result Comment: Rech ecked and verified on both Chemistry analyzers Triglyceride Reference Interval: Less than 150 Normal 150-199 Borderline high risk 200-499 High risk 500 or higher Very high risk Performed By: #### G FR, LIPID, CMP, FE #### [place] [address] #### FOL, B12 #### [address] [address] PSAon 12-22-2023 Prostate Specific Antigen 1.09 ng/mL Normal 0.00-4.00 [facility] Comment on above: Performed By: #### F ERR, PSA #### [address] [address] .Auto Diffon 07-21-2023 Basophil, Absolute 0.0 10 3/mcL Normal 0.0-0.2 [facility] ([place]) Comment on above: Performed By: #### A DIFF, CBC, GFR, BMP, ANEUSARI #### [address] [address] Basophils/100 WBC (Bld) 0.5 % Normal 0.0-2.5 [facility] ([place]) Comment on above: Performed By: #### A DIFF, CBC, GFR, BMP, ANEUSARI #### [address] [address] Eosinophil, Absolute 0.1 10 3/mcL Normal 0.0-0.4 [facility] ([place]) Comment on above: Performed By: #### A DIFF, CBC, GFR, BMP, SARI HENDRIX #### [address] [address] Eosinophils/100 WBC (Bld) 1.9 % Normal 0.0-7.0 [facility] ([place]) Comment on above: Performed By: #### A DIFF, CBC, GFR, BMP, SARI HENDRIX #### [address] [address] Lymphocyte, Absolute 1.0 10 3/mcL Normal 0.8-3.9 [facility] ([place]) Comment on above: Performed By: #### A DIFF, CBC, GFR, BMP, SARI HENDRIX #### [address] [address] Lymphocytes/100 WBC (Bld) 20.1 % Normal 10.0-50.0 [facility] ([place]) Comment on above: Performed By: #### A DIFF, CBC, GFR, BMP, SARI HENDRIX #### [address] [address] Monocyte, Absolute 0.5 10 3/mcL Normal 0.2-1.0 [facility] ([place]) Comment on above: Performed By: #### A DIFF, CBC, GFR, BMP, ANEUSARI #### [address] [address] Monocytes/100 WBC (Bld) 10.3 % Normal 1.7-13.0 [facility] ([place]) Comment on above: Performed By: #### A DIFF, CBC, GFR, BMP, SARI HENDRIX #### [address] [address] Neutrophils/100 WBC (Bld) 67.2 % Normal 37.0-80.0 [facility] ([place]) Comment on above: Performed By: #### A DIFF, CBC, GFR, BMP, SARI HENDRIX #### [address] [address] .GFRon 07-21-2023 GFR 67 ml/min/1.73sqm Normal [facility] ([place]) Comment on above: Result Comment: GFR [...] DIFF, CBC, GFR, BMP, SARI HENDRIX #### [address] [address] GFR Non- 56 ml/min/1.73sqm Normal [facility] ([place]) Comment on above: Result Comment: GFR [...] A DIFF, CBC, GFR, BMP, ANEUSARI #### [address] [address] .MDWon 07-21-2023 Monocyte Distribution Width 15.83 Normal 0.00-20.00 [facility] ([place]) Comment on above: Result Comment: For ED adult patients suspected of sepsis, MDW<=20.0 does not rule out sepsis or risk of sepsis Performed By: #### A DIFF, CBC, GFR, BMP, ANEUSARI #### [address] [address] .NEUABSon 07-21-2023 Neutrophil, Absolute 3.2 10 3/mcL Normal 2.9-6.2 [facility] ([place]) Comment on above: Performed By: #### A DIFF, CBC, GFR, BMP, SARI HENDRIX #### [address] [address] BMPon 07-21-2023 BUN/Creatinine Ratio 12 ratio Normal 7-27 [facility] ([place]) Comment on above: Performed By: #### A DIFF, CBC, GFR, BMP, SARI HENDRIX #### [address] [address] Calcium [Mass/Vol] 8.7 mg/dL Normal 8.4-10.2 [facility] ([place]) Comment on above: Performed By: #### A DIFF, CBC, GFR, BMP, SARI HENDRIX #### [address] [address] Chloride [Moles/Vol] 103 mmol/L Normal 98-107 [facility] ([place]) Comment on above: Performed By: #### A DIFF, CBC, GFR, BMP, SARI HENDRIX #### [address] [address] CO2 [Moles/Vol] 33 mmol/L High 23-31 [facility] ([place]) Comment on above: Performed By: #### A DIFF, CBC, GFR, BMP, SARI HENDRIX #### [address] [address] Electrolyte Balance 6.0 mEq/L Normal 4.0-15.0 [facility] ([place]) Comment on above: Performed By: #### A DIFF, CBC, GFR, BMP, SARI HENDRIX #### [address] [address] Glucose [Mass/Vol] 105 mg/dL Normal 80-115 [facility] ([place]) Comment on above: Performed By: #### A DIFF, CBC, GFR, BMP, SARI HENDRIX #### [address] [address] Potassium [Moles/Vol] 4.7 mmol/L Normal 3.5-5.1 [facility] ([place]) Comment on above: Performed By: #### A DIFF, CBC, GFR, BMP, SARI HENDRIX #### [address] [address] Sodium [Moles/Vol] 142 mmol/L Normal 136-145 [facility] ([place]) Comment on above: Performed By: #### A DIFF, CBC, GFR, BMP, SARI HENDRIX #### [address] [address] Urea nitrogen [Mass/Vol] 15 mg/dL Normal 7-18 [facility] ([place]) Comment on above: Performed By: #### A DIFF, CBC, GFR, BMP, SARI HENDRIX #### [address] [address] Creatinine [Mass/Vol] 1.30 mg/dL Normal 0.70-1.30 [facility] ([place]) Comment on above: Performed By: #### A DIFF, CBC, GFR, BMP, SARI HENDRIX #### [address] [address] CBCon 07-21-2023 Erythrocyte distribution width (RBC) [Ratio] 14.9 % High 11.5-14.5 [facility] ([place]) Comment on above: Performed By: #### A DIFF, CBC, GFR, BMP, SARI HENDRIX #### [address] [address] Hematocrit (Bld) [Volume fraction] 34.5 % Low 42.0-52.0 [facility] ([place]) Comment on above: Performed By: #### A DIFF, CBC, GFR, BMP, SARI HENDRIX #### [place] [address] Hgb 12.5 G/dL Low 14.0-18.0 [facility] ([place]) Comment on above: Performed By: #### A DIFF, CBC, GFR, BMP, SARI HENDRIX #### [place] [address] MCH (RBC) [Entitic mass] 34.8 pg High 27.0-31.2 [facility] ([place]) Comment on above: Performed By: #### A DIFF, CBC, GFR, SIMEON CHRISTINE MDW #### [place] [address] MCHC 36.1 G/dL High 31.8-35.4 [facility] ([place]) Comment on above: Performed By: #### A DIFF, CBC, GFR, NANCI, SARI HENDRIX #### [place] [address] MCV (RBC) [Entitic vol] 96.4 fL High 80.0-94.0 [facility] ([place]) Comment on above: Performed By: #### A DIFF, CBC, GFR, SIMEON CHRISTINE MDW #### [place] [address] Platelet 157 10 3/mcL Normal 130-400 [facility] ([place]) Comment on above: Performed By: #### A DIFF, CBC, GFR, BMP, SARI HENDRIX #### [address] [address] Platelet mean volume (Bld) [Entitic vol] 9.1 fL Normal 7.4-10.4 [facility] ([place]) Comment on above: Performed By: #### A DIFF, CBC, GFR, BMP, ANEU, MDW #### [address] [address] RBC 3.58 10 6/mcL Low 4.04-6.13 [facility] ([place]) Comment on above: Performed By: #### A DIFF, CBC, GFR, BMP, ANEU, MDW #### [address] [address] WBC 4.8 10 3/mcL Normal 4.6-10.8 [facility] ([place]) Comment on above: Performed By: #### A DIFF, CBC, GFR, BMP, ANEU, MDW #### [address] [address] [address] ABD/PELVIS W/ IV CONTRAST ONLYon 07-21-2023 [...] 07/20/2023 11:34:23 PM Ordering Provider: YEVGENIY QUINTEROS [facility] ([place]) LABORATORYOrdered By: Any García on 07-21-2023 Appearance [...] SS UAon 07-21-2023 Color (U) Yellow Normal [facility] ([place]) Comment on above: Performed By: #### A SARI SANCHES, ALC, CBC, BMP, ADIFF, GFR #### [place] [address] [place] [address] Glucose (U) [Mass/Vol] Negative Normal Negative [facility] ([place]) Comment on above: Performed By: #### A SARI SANCHES, ALC, CBC, BMP, ADIFF, GFR #### [address] [address] Ketones Ql (U) Negative Normal Negative [facility] ([place]) Comment on above: Performed By: #### A SARI SANCHES, ALC, CBC, BMP, ADIFF, GFR #### [address] [address] UA Appear Clear Normal Clear [facility] ([place]) Comment on above: Performed By: #### A SARI SANCHES, ALC, CBC, BMP, ADIFF, GFR #### [address] [address] UA Blood Negative Normal Negative [facility] ([place]) Comment on above: Performed By: #### A SARI SANCHES, STEFANI, CBC, BMP, ADIFF, GFR #### [address] [address] UA Leuk Est Negative Normal Negative [facility] ([place] Comment on above: Performed By: #### A SARI SANCHES, STEFANI, CBC, BMP, ADIFF, GFR #### [address] [address] UA Nitrite Negative Normal Negative [facility] ([place] Comment on above: Performed By: #### A SARI SANCHES, STEFANI, CBC, BMP, ADIFF, GFR #### [address] [address] UA pH 7.0 Normal 5.0 - 8.0 [facility] ([place]) Comment on above: Performed By: #### A SARI SANCHES, ALC, CBC, BMP, ADIFF, GFR #### [address] [address] UA Protein Negative Normal Negative [facility] ([place] Comment on above: Performed By: #### A SARI SANCHES, STEFANI, CBC, BMP, ADIFF, GFR #### [address] [address] UA Spec Grav 1.015 Normal 1.015-1.025 [facility] ([place]) Comment on above: Performed By: #### A SARI SANCHES, ALC, CBC, BMP, ADIFF, GFR #### [address] [place], [place] [address] UA Specimen Type Clean Catch Normal [facility] ([place]) Comment on above: Performed By: #### A SARI SANCHES, ALC, CBC, BMP, ADIFF, GFR #### [address] [place], [place] [address] UA Urobilinogen 1.0 E.U./dL Normal 0.2-1.0 [facility] ([place] Comment on above: Performed By: #### A SARI SANCHES, ALC, CBC, BMP, ADIFF, GFR #### [id number] [place] [id number] Urobilinogen (U) [Mass/Vol] Negative Normal Negative [facility] ([place] Comment on above: Performed By: #### A SARI SANCHES, ALC, CBC, BMP, ADIFF, GFR #### [id number] [place] [phone] LABORATORYOrdered By: SYSTEM SYSTEM on 07-20-2023 Basophil, [...] SS UAon 07-18-2023 Color (U) Yellow Normal [facility] ([place] Comment on above: Performed By: #### A DIFF, CBC, GFR, NANCI, SARI HENDRIX #### [address] [address] Glucose (U) [Mass/Vol] Negative Normal Negative [facility] ([place]) Comment on above: Performed By: #### A DIFF, CBC, GFR, BMP, SARI HENDRIX #### [address] [address] Ketones Ql (U) Negative Normal Negative [facility] ([place] Comment on above: Performed By: #### A DIFF, CBC, GFR, NANCI, SARI HENDRIX #### [address] [address] UA Appear Clear Normal Clear [facility] ([place] Comment on above: Performed By: #### A DIFF, CBC, GFR, NANCI, SARI HENDRIX #### [address] [address] UA Blood Negative Normal Negative [facility] ([place] Comment on above: Performed By: #### A DIFF, CBC, GFR, BMP, SARI HENDRIX #### [address] [address] UA Leuk Est Negative Normal Negative [facility] ([place] Comment on above: Performed By: #### A DIFF, CBC, GFR, BMP, SARI HENDRIX #### [address] [address] UA Nitrite Negative Normal Negative [facility] ([place] Comment on above: Performed By: #### A DIFF, CBC, GFR, BMP, SARI HENDRIX #### [place] [address] UA pH 7.0 Normal 5.0 - 8.0 [facility] ([place] Comment on above: Performed By: #### A DIFF, CBC, GFR, BMP, SARI HENDRIX #### [place] [address] UA Protein Negative Normal Negative [facility] ([place] Comment on above: Performed By: #### A DIFF, CBC, GFR, NANCI, SARI HENDRIX #### [place] [address] UA Spec Grav 1.020 Normal 1.015-1.025 [facility] ([place] Comment on above: Performed By: #### A DIFF, CBC, GFR, NANCI, SARI HENDRIX #### [place] [address] UA Specimen Type Clean Catch Normal [facility] ([place] Comment on above: Performed By: #### A DIFF, CBC, GFR, BMP, SARI HENDRIX #### [place] [address] UA Urobilinogen 1.0 E.U./dL Normal 0.2-1.0 [facility] ([place] Comment on above: Performed By: #### A DIFF, CBC, GFR, BMP, SARI HENDRIX #### [place] [address] [place], [place] [address] Urobilinogen (U) [Mass/Vol] Negative Normal Negative [facility] [place] Comment on above: Performed By: #### A DIFF, CBC, GFR, BMP, SARI HENDRIX #### [address] [address] .Auto Diffon 06-12-2023 Basophil, Absolute 0.0 10 3/mcL Normal 0.0-0.2 [facility] ([place] Comment on above: Performed By: #### A SARI SANCHES, ALC, CBC, BMP, ADIFF, GFR #### [address] [address] Basophils/100 WBC (Bld) 0.6 % Normal 0.0-2.5 A [facility] ([place]) Comment on above: Performed By: #### A SARI SANCHES, ALC, CBC, BMP, ADIFF, GFR #### [address] [address] Eosinophil, Absolute 0.0 10 3/mcL Normal 0.0-0.4 [facility] ([place] Comment on above: Performed By: #### A SARI SANCHES, ALC, CBC, BMP, ADIFF, GFR #### [address] [address] Eosinophils/100 WBC (Bld) 0.4 % Normal 0.0-7.0 [facility] ([place] Comment on above: Performed By: #### A SARI SANCHES, ALC, CBC, BMP, ADIFF, GFR #### [address] [address] Lymphocyte, Absolute 0.6 10 3/mcL Low 0.8-3.9 [facility] ([place] Comment on above: Performed By: #### A SARI SANCHES, ALC, CBC, BMP, ADIFF, GFR #### [address] [address] Lymphocytes/100 WBC (Bld) 8.5 % Low 10.0-50.0 [facility] ([place] Comment on above: Performed By: #### A SARI SANCHES, ALC, CBC, BMP, ADIFF, GFR #### [address] [address] Monocyte, Absolute 0.5 10 3/mcL Normal 0.2-1.0 [facility] ([place] Comment on above: Performed By: #### A SARI SANCHES, ALC, CBC, BMP, ADIFF, GFR #### [address] [address] Monocytes/100 WBC (Bld) 6.7 % Normal 1.7-13.0 [facility] ([place] Comment on above: Performed By: #### A SARI SANCHES, ALC, CBC, BMP, ADIFF, GFR #### [address] [address] Neutrophils/100 WBC (Bld) 83.8 % High 37.0-80.0 [facility] ([place] Comment on above: Performed By: #### A SARI SANCHES, STEFANI, CBC, BMP, ADIFF, GFR #### [address] [address] .GFRon 06-12-2023 GFR 62 ml/min/1.73sqm Normal [facility] ([place] Comment on above: Result Comment: GFR Population [...] SANCHES, ALC, CBC, BMP, ADIFF, GFR #### [address] [address] GFR Non- 51 ml/min/1.73sqm Normal [facility] ([place] Comment on above: Result Comment: GFR Population [...] SANCHES, ALC, CBC, BMP, ADIFF, GFR #### [address] [address] .MDWon 06-12-2023 Monocyte Distribution Width 16.69 Normal 0.00-20.00 [facility] ([place]) Comment on above: Result Comment: For ED adult patients suspected of sepsis, MDW<=20.0 does not rule out sepsis or risk of sepsis Performed By: #### A SARI SANCHES, ALC, CBC, BMP, ADIFF, GFR #### [address] [address] .NEUABSon 06-12-2023 Neutrophil, Absolute 5.8 10 3/mcL Normal 2.9-6.2 [facility] ([place] Comment on above: Performed By: #### A SARI SANCHES, ALC, CBC, BMP, ADIFF, GFR #### [address] [address] .Urinalysis Microscopic (AO) on 06-12-2023 UA RBC 5-10 Abnormal None Seen [facility] [place] Comment on above: Performed By: #### A DIFF, CBC, GFR, BMP, MD SIMEONW #### [address] [address] UA Squam Epithelial None Seen Normal None Seen [facility] ([place] Comment on above: Performed By: #### A DIFF, CBC, GFR, NANCI, SARI HENDRIX #### [address] [address] UA WBC None Seen Normal None Seen [facility] [place] Comment on above: Performed By: #### A DIFF, CBC, GFR, NANCI, SARI HENDRIX #### [address] [address] CBCon 06-12-2023 Erythrocyte distribution width (RBC) [Ratio] 13.9 % Normal 11.5-14.5 [facility] ([place] Comment on above: Performed By: #### A SARI SANCHES, ALC, CBC, BMP, ADIFF, GFR #### [place] [address] Hematocrit (Bld) [Volume fraction] 39.0 % Low 42.0-52.0 [facility] ([place] Comment on above: Performed By: #### A SARI SANCHES, ALC, CBC, BMP, ADIFF, GFR #### [place] [address] Hgb 13.8 G/dL Low 14.0-18.0 [facility] ([place] Comment on above: Performed By: #### A SARI SANCHES, ALC, CBC, BMP, ADIFF, GFR #### [address] [address] MCH (RBC) [Entitic mass] 33.8 pg High 27.0-31.2 [facility] ([place] Comment on above: Performed By: #### A SARI SANCHES, ALC, CBC, BMP, ADIFF, GFR #### [place] [address] MCHC 35.5 G/dL High 31.8-35.4 [facility] ([place] Comment on above: Performed By: #### A SARI SANCHES, ALC, CBC, BMP, ADIFF, GFR #### [address] [address] MCV (RBC) [Entitic vol] 95.4 fL High 80.0-94.0 A [facility] ([place] Comment on above: Performed By: #### A SARI SANCHES, ALC, CBC, BMP, ADIFF, GFR #### [address] [address] Platelet 201 10 3/mcL Normal 130-400 [facility] ([place] Comment on above: Performed By: #### A SARI SANCHES, ALC, CBC, BMP, ADIFF, GFR #### [address] [address] Platelet mean volume (Bld) [Entitic vol] 9.4 fL Normal 7.4-10.4 [facility] ([place] Comment on above: Performed By: #### A SARI SANCHES, ALC, CBC, BMP, ADIFF, GFR #### [address] [address] RBC 4.09 10 6/mcL Normal 4.04-6.13 [facility] ([place] Comment on above: Performed By: #### A SARI SANCHES, ALC, CBC, BMP, ADIFF, GFR #### [address] [address] WBC 6.9 10 3/mcL Normal 4.6-10.8 [facility] ([place] Comment on above: Performed By: #### A SARI SANCHES, ALC, CBC, BMP, ADIFF, GFR #### [address] [address] CMPon 06-12-2023 Albumin Level 3.8 G/dL Normal 3.4-4.8 [facility] ([place] Comment on above: Performed By: #### A SARI SANCHES, ALC, CBC, BMP, ADIFF, GFR #### [address] [address] Albumin/Globulin [Mass ratio] 1.4 {ratio} Normal 1.1-2.5 [facility] ([place] Comment on above: Performed By: #### A SARI SANCHES, ALC, CBC, BMP, ADIFF, GFR #### [address] [address] ALP [Catalytic activity/Vol] 73 U/L Normal 40-135 [facility] ([place] Comment on above: Performed By: #### A SARI SANCHES, ALC, CBC, BMP, ADIFF, GFR #### [address] [address] ALT [Catalytic activity/Vol] 23 U/L Normal 16-63 [facility] ([place] Comment on above: Performed By: #### A SARI SANCHES, ALC, CBC, BMP, ADIFF, GFR #### [address] [address] AST [Catalytic activity/Vol] 15 U/L Normal 10-40 [facility] ([place] Comment on above: Performed By: #### A SARI SANCHES, ALC, CBC, BMP, ADIFF, GFR #### [address] [address] Bili Total 1.0 mg/dL Normal 0.2-1.0 [facility] ([place]) Comment on above: Result Comment: Use of this assay is not recommended for patients undergoing treatment with eltrombopag due to the potential for falsely elevated results. Performed By: #### A SARI SANCHES, STEFANI, CBC, BMP, ADIFF, GFR #### [address] [address] BUN/Creatinine Ratio 9 ratio Normal 7-27 [facility] ([place] Comment on above: Performed By: #### A SARI SANCHES, ALC, CBC, BMP, ADIFF, GFR #### [address] [address] Calcium [Mass/Vol] 8.7 mg/dL Normal 8.4-10.2 [facility] ([place]) Comment on above: Performed By: #### A SARI SANCHES, ALC, CBC, BMP, ADIFF, GFR #### [address] [address] Chloride [Moles/Vol] 102 mmol/L Normal 98-107 [facility] ([place] Comment on above: Performed By: #### A SARI SANCHES, ALC, CBC, BMP, ADIFF, GFR #### [address] [address] CO2 [Moles/Vol] 33 mmol/L High 23-31 [facility] ([place]) Comment on above: Performed By: #### A SARI SANCHES, ALC, CBC, BMP, ADIFF, GFR #### [address] [address] Creatinine [Mass/Vol] 1.40 mg/dL High 0.70-1.30 [facility] ([place]) Comment on above: Performed By: #### A SARI SANCHES, ALC, CBC, BMP, ADIFF, GFR #### [address] [address] Electrolyte Balance 6.0 mEq/L Normal 4.0-15.0 [facility] ([place] Comment on above: Performed By: #### A SARI SANCHES, ALC, CBC, BMP, ADIFF, GFR #### [address] [address] Globulin 2.7 G/dL Normal [facility] ([place] Comment on above: Performed By: #### A SARI SANCHES, ALC, CBC, BMP, ADIFF, GFR #### [address] [address] Glucose [Mass/Vol] 127 mg/dL High 80-115 [facility] ([place]) Comment on above: Performed By: #### A SARI SANCHES, ALC, CBC, BMP, ADIFF, GFR #### [address] [address] Potassium [Moles/Vol] 4.5 mmol/L Normal 3.5-5.1 [facility] ([place] Comment on above: Performed By: #### A SARI SANCHES, ALC, CBC, BMP, ADIFF, GFR #### [address] [address] Sodium [Moles/Vol] 141 mmol/L Normal 136-145 [facility] ([place]) Comment on above: Performed By: #### A SARI SANCHES, ALC, CBC, BMP, ADIFF, GFR #### [address] [place], [place] [address] Total Protein 6.5 G/dL Normal 6.4-8.2 [facility] ([place]) Comment on above: Performed By: #### A SARI SANCHES, ALC, CBC, BMP, ADIFF, GFR #### [address] [place], [place] [address] Urea nitrogen [Mass/Vol] 12 mg/dL Normal 7-18 [facility] ([place] Comment on above: Performed By: #### A SARI SANCHES, ALC, CBC, BMP, ADIFF, GFR #### [address] [place], [place] [address] LABORATORYOrdered By: Zarina Robin on 06-12-2023 Appearance [...] Comment on above: Interpretive Data: [employer] (CHEST, 1991, 102:[id number]) [...] Lactic Acid Lvl 0.9 mmol/L Normal 0.4-2.0 [facility] ([place] Comment on above: Performed By: #### A SARI SANCHES, ALC, CBC, BMP, ADIFF, GFR #### [address] [address] PROon 06-12-2023 PT Coag (PPP) [Time] 12.1 s Normal 9.0-14.2 [facility] [place] Comment on above: Performed By: #### A SARI SANCHES, ALC, CBC, BMP, ADIFF, GFR #### [address] [address] PT International Ratio 1.1 Normal [facility] ([place]) Comment on above: Result Comment: [employer] (CHEST, 1992, 102:[id number]) recommended therapeutic range for oral anticoagulant therapy is: LOW RISK: Prophylaxis of venous thrombosis INR: 2.0-3.0 Treatment of pulmonary embolism 2.0-3.0 Prevention of systemic embolism 2.0-3.0 HIGH RISK: Mechanical prosthetic valves 2.5-3.5 Performed By: #### A SARI SANCHES, ALC, CBC, BMP, ADIFF, GFR #### [address] [address] UAon 06-12-2023 Color (U) Yellow Normal [facility] ([place] Comment on above: Performed By: #### A DIFF, CBC, GFR, BMP, SARI HENDRIX #### [address] [address] Glucose (U) [Mass/Vol] Negative Normal Negative [facility] ([place] Comment on above: Performed By: #### A DIFF, CBC, GFR, NANCI, SARI HENDRIX #### [address] [address] Ketones Ql (U) Negative Normal Negative [facility] ([place] Comment on above: Performed By: #### A DIFF, CBC, GFR, NANCI, SARI HENDRIX #### [address] [address] UA Appear Clear Normal Clear [facility] ([place] Comment on above: Performed By: #### A DIFF, CBC, GFR, NANCI, SARI HENDRIX #### [address] [address] UA Blood Small Abnormal Negative [facility] ([place] Comment on above: Performed By: #### A DIFF, CBC, GFR, NANCI, SARI HENDRIX #### [address] [address] UA Leuk Est Negative Normal Negative [facility] ([place] Comment on above: Performed By: #### A DIFF, CBC, GFR, NANCI, SARI HENDRIX #### [address] [address] UA Nitrite Negative Normal Negative [facility] ([place] Comment on above: Performed By: #### A DIFF, CBC, GFR, NANCI, SARI HENDRIX #### [address] [address] UA pH 6.5 Normal 5.0 - 8.0 [facility] ([place]) Comment on above: Performed By: #### A DIFF, CBC, GFR, SIMEON CHRISTINE MDW #### [address] [address] UA Protein 30 mg/dL Normal Negative [facility] ([place] Comment on above: Performed By: #### A DIFF, CBC, GFR, NANCI, SARI HENDRIX #### [address] [place], [place] [address] UA Spec Grav 1.020 Normal 1.015-1.025 [facility] ([place]) Comment on above: Performed By: #### A DIFF, CBC, GFR, BMP, SIMEON, SARI #### [address] [place], [place] [address] UA Specimen Type Clean Catch Normal [facility] ([place] Comment on above: Performed By: #### A DIFF, CBC, GFR, BMP, ANEU, SARI #### [address] [address] UA Urobilinogen 1.0 E.U./dL Normal 0.2-1.0 [facility] ([place]) Comment on above: Performed By: #### A DIFF, CBC, GFR, BMP, SARI HENDRIX #### [address] [place], [place] [address] Urobilinogen (U) [Mass/Vol] Negative Normal Negative [facility] ([place]) Comment on above: Performed By: #### A DIFF, CBC, GFR, BMP, SARI HENDRIX #### [address] [address] XR CHEST 1 VIEWon 06-12-2023 XR CHEST [...] 06/12/2023 7:02:51 PM Ordering Provider: CARIDAD Marrero [facility] ([place]) .Auto Diffon 05-31-2023 Basophil, Absolute 0.0 10 3/mcL Normal 0.0-0.2 [facility] ([place] Comment on above: Performed By: #### A DIFF, CBC, GFR, BMP, ANEUSARI #### [address] [address] Basophils/100 WBC (Bld) 0.4 % Normal 0.0-2.5 A [facility] ([place] Comment on above: Performed By: #### A DIFF, CBC, GFR, BMP, ANEU, W #### [address] [address] Eosinophil, Absolute 0.1 10 3/mcL Normal 0.0-0.4 [facility] ([place] Comment on above: Performed By: #### A DIFF, CBC, GFR, BMP, ANEU, SARI #### [address] [address] Eosinophils/100 WBC (Bld) 1.4 % Normal 0.0-7.0 [facility] ([place]) Comment on above: Performed By: #### A DIFF, CBC, GFR, BMP, ANEUMDW #### [address] [address] Lymphocyte, Absolute 0.4 10 3/mcL Low 0.8-3.9 [facility] ([place] Comment on above: Performed By: #### A DIFF, CBC, GFR, BMP, ANEU, W #### [address] [address] Lymphocytes/100 WBC (Bld) 12.1 % Normal 10.0-50.0 [facility] ([place]) Comment on above: Performed By: #### A DIFF, CBC, GFR, BMP, ANEUSARI #### [address] [address] Monocyte, Absolute 0.4 10 3/mcL Normal 0.2-1.0 [facility] ([place] Comment on above: Performed By: #### A DIFF, CBC, GFR, BMP, ANEU, W #### [address] [address] Monocytes/100 WBC (Bld) 9.9 % Normal 1.7-13.0 A [facility] ([place] Comment on above: Performed By: #### A DIFF, CBC, GFR, SIMEON CHRISTINE MDW #### [address] [address] Neutrophils/100 WBC (Bld) 76.2 % Normal 37.0-80.0 [facility] ([place]) Comment on above: Performed By: #### A DIFF, CBC, GFR, SIMEON CHRISTINE MDW #### [address] [address] .GFRon 05-31-2023 GFR 72 ml/min/1.73sqm Normal [facility] ([place]) Comment on above: Result Comment: GFR Population [...] DIFF, CBC, GFR, SIMEON CHRISTINE MDW #### [address] [address] GFR Non- 60 ml/min/1.73sqm Normal [facility] ([place] Comment on above: Result Comment: GFR Population [...] DIFF, CBC, GFR, BMP, ANEU, SARI #### [address] [address] .MDWon 05-31-2023 Monocyte Distribution Width 18.08 Normal 0.00-20.00 [facility] ([place]) Comment on above: Result Comment: For ED adult patients suspected of sepsis, MDW<=20.0 does not rule out sepsis or risk of sepsis Performed By: #### A DIFF, CBC, GFR, BMP, ANEUSARI #### [address] [address] .NEUABSon 05-31-2023 Neutrophil, Absolute 2.8 10 3/mcL Low 2.9-6.2 [facility] ([place] Comment on above: Performed By: #### A DIFF, CBC, GFR, BMP, SARI HENDRIX #### [address] [address] BMPon 05-31-2023 BUN/Creatinine Ratio 8 ratio Normal 7-27 [facility] ([place] Comment on above: Performed By: #### A DIFF, CBC, GFR, BMP, ANEUSARI #### [address] [address] Calcium [Mass/Vol] 8.4 mg/dL Normal 8.4-10.2 [facility] ([place]) Comment on above: Performed By: #### A DIFF, CBC, GFR, BMP, ANEUSARI #### [address] [address] Chloride [Moles/Vol] 103 mmol/L Normal 98-107 [facility] ([place] Comment on above: Performed By: #### A DIFF, CBC, GFR, BMP, ANEU, W #### [address] [address] CO2 [Moles/Vol] 33 mmol/L High 23-31 [facility] ([place]) Comment on above: Performed By: #### A DIFF, CBC, GFR, BMP, SARI HENDRIX #### [address] [address] Creatinine [Mass/Vol] 1.22 mg/dL Normal 0.70-1.30 [facility] ([place]) Comment on above: Performed By: #### A DIFF, CBC, GFR, BMP, SARI HENDRIX #### [address] [address] Electrolyte Balance 7.0 mEq/L Normal 4.0-15.0 [facility] ([place] Comment on above: Performed By: #### A DIFF, CBC, GFR, NANCI, SARI HENDRIX #### [address] [address] Glucose [Mass/Vol] 100 mg/dL Normal 80-115 [facility] ([place]) Comment on above: Performed By: #### A DIFF, CBC, GFR, BMP, SARI HENDRIX #### [address] [address] Potassium [Moles/Vol] 3.9 mmol/L Normal 3.5-5.1 [facility] ([place] Comment on above: Performed By: #### A DIFF, CBC, GFR, BMP, SARI HENDRIX #### [address] [address] Sodium [Moles/Vol] 143 mmol/L Normal 136-145 [facility] ([place]) Comment on above: Performed By: #### A DIFF, CBC, GFR, BMP, SARI HENDRIX #### [address] [address] Urea nitrogen [Mass/Vol] 10 mg/dL Normal 7-18 [facility] ([place]) Comment on above: Performed By: #### A DIFF, CBC, GFR, BMP, SARI HENDRIX #### [address] [address] CBCon 05-31-2023 Erythrocyte distribution width (RBC) [Ratio] 13.9 % Normal 11.5-14.5 [facility] ([place]) Comment on above: Performed By: #### A DIFF, CBC, GFR, BMP, SARI HENDRIX #### [address] [address] Hematocrit (Bld) [Volume fraction] 37.9 % Low 42.0-52.0 [facility] ([place] Comment on above: Performed By: #### A DIFF, CBC, GFR, BMP, SARI HENDRIX #### [address] [address] Hgb 13.5 G/dL Low 14.0-18.0 [facility] ([place] Comment on above: Performed By: #### A DIFF, CBC, GFR, BMP, SARI HENDRIX #### [address] [address] MCH (RBC) [Entitic mass] 33.8 pg High 27.0-31.2 [facility] ([place]) Comment on above: Performed By: #### A DIFF, CBC, GFR, BMP, SARI HENDRIX #### [address] [address] MCHC 35.6 G/dL High 31.8-35.4 [facility] ([place] Comment on above: Performed By: #### A DIFF, CBC, GFR, BMP, SARI HENDRIX #### [address] [address] MCV (RBC) [Entitic vol] 94.9 fL High 80.0-94.0 [facility] ([place] Comment on above: Performed By: #### A DIFF, CBC, GFR, BMP, SARI HENDRIX #### [address] [address] Platelet 143 10 3/mcL Normal 130-400 [facility] ([place] Comment on above: Performed By: #### A DIFF, CBC, GFR, BMP, SARI HENDRIX #### [address] [address] Platelet mean volume (Bld) [Entitic vol] 9.0 fL Normal 7.4-10.4 [facility] ([place] Comment on above: Performed By: #### A DIFF, CBC, GFR, BMP, SARI HENDRIX #### [address] [address] RBC 3.99 10 6/mcL Low 4.04-6.13 [facility] ([place]) Comment on above: Performed By: #### A DIFF, CBC, GFR, BMP, SARI HENDRIX #### [place] [address] [address] WBC 3.7 10 3/mcL Low 4.6-10.8 [facility] ([place] Comment on above: Performed By: #### A DIFF, CBC, GFR, BMPSIMEON MDW #### [address] [address] LABORATORYOrdered By: SYSTEM SYSTEM on 05-31-2023 Basophil, [...] ng/L Male: 0-76 ng/L Testing performed on [employer] using a homogeneous sandwich chemiluminescent immunoassay based on [employer] technology. Urea nitrogen [Mass/Vol] 10 mg/dL Normal 7 - 18 mg/dL AO ADM SS Urea nitrogen/Creatinine [Mass ratio] 8 ratio Normal 7 - 27 ratio AO ADM SS WBC (Bld) [#/Vol] 3.7 103/mcL Low 4.6 - 10.8 10^3/mcL AO Workflow SS PBNPon 05-31-2023 N-Terminal proBNP <5 Normal 0-125 [facility] ([place]) Comment on above: Result Comment: NT-p roBNP results of less than 300 pg/mL effectively rules out acute congestive heart failure with 99% negative predictive value. Performed By: #### A DIFF, CBC, GFR, BMP, SARI HENDRIX #### [address] [address] TROPHSon 05-31-2023 High Sensitivity Troponin I <4 Normal 0-76 [facility] ([place]) Comment on above: Result Comment: High Sensitive Troponin I Reference Ranges: Female: 0-51 ng/L Male: 0-76 ng/L Testing performed on [employer] using a homogeneous sandwich chemiluminescent immunoassay based on [employer] technology. Performed By: #### A DIFF, CBC, GFR, BMP, SARI HENDRIX #### [place] [address] [address] XR CHEST 2 VIEWSon XR CHEST 2 [...] 05/31/2023 11:55:32 AM Ordering Provider: FELI Marrero [facility] ([place]) .Auto Diffon 05-10-2023 Basophil, Absolute 0.0 10 3/mcL Normal 0.0-0.2 [facility] ([place]) Comment on above: Performed By: #### A MD MYRONW, ALC, CBC, BMP, ADIFF, GFR #### [address] [address] Basophils/100 WBC (Bld) 0.8 % Normal 0.0-2.5 A [facility] ([place]) Comment on above: Performed By: #### A MD MYRONW, ALC, CBC, BMP, ADIFF, GFR #### [address] [address] Eosinophil, Absolute 0.1 10 3/mcL Normal 0.0-0.4 [facility] ([place]) Comment on above: Performed By: #### A MD MYRONW, ALC, CBC, BMP, ADIFF, GFR #### [address] [address] Eosinophils/100 WBC (Bld) 1.9 % Normal 0.0-7.0 [facility] ([place]) Comment on above: Performed By: #### A MD MYRONW, ALC, CBC, BMP, ADIFF, GFR #### [address] [address] Lymphocyte, Absolute 1.3 10 3/mcL Normal 0.8-3.9 [facility] ([place]) Comment on above: Performed By: #### A SARI SANCHES, ALC, CBC, BMP, ADIFF, GFR #### [address] [address] Lymphocytes/100 WBC (Bld) 28.6 % Normal 10.0-50.0 [facility] ([place]) Comment on above: Performed By: #### A MD MYRONW, ALC, CBC, BMP, ADIFF, GFR #### [address] [address] Monocyte, Absolute 0.4 10 3/mcL Normal 0.2-1.0 [facility] ([place]) Comment on above: Performed By: #### A MD MYRONW, ALC, CBC, BMP, ADIFF, GFR #### [address] [address] Monocytes/100 WBC (Bld) 8.8 % Normal 1.7-13.0 A [facility] ([place]) Comment on above: Performed By: #### A MD MYRONW, ALC, CBC, BMP, ADIFF, GFR #### [address] [address] Neutrophils/100 WBC (Bld) 59.9 % Normal 37.0-80.0 [facility] ([place] Comment on above: Performed By: #### A SARI SANCHES, ALC, CBC, BMP, ADIFF, GFR #### [address] [address] .GFRon 05-10-2023 GFR 82 ml/min/1.73sqm Normal [facility] ([place]) Comment on above: Result Comment: GFR Population [...] SANCHES, STEFANI, CBC, BMP, ADIFF, GFR #### [address] [address] GFR Non- 67 ml/min/1.73sqm Normal [facility] ([place]) Comment on above: Result Comment: GFR Population [...] SANCHES, ALC, CBC, BMP, ADIFF, GFR #### [place] [address] .NEUABSon 05-10-2023 Neutrophil, Absolute 2.7 10 3/mcL Low 2.9-6.2 [facility] ([place]) Comment on above: Performed By: #### A SARI SANCHES, ALC, CBC, BMP, ADIFF, GFR #### [place] [address] A1Con 05-10-2023 HbA1c (Bld) [Mass fraction] 5.6 % Normal 4.3-6.4 [facility] ([place]) Comment on above: Performed By: #### A SARI SANCHES, STEFANI, CBC, BMP, ADIFF, GFR #### [place] [address] CBCon 05-10-2023 Erythrocyte distribution width (RBC) [Ratio] 14.0 % Normal 11.5-14.5 [facility] ([place]) Comment on above: Performed By: #### A SARI SANCHES, ALC, CBC, BMP, ADIFF, GFR #### [place] [address] Hematocrit (Bld) [Volume fraction] 43.7 % Normal 42.0-52.0 [facility] ([place]) Comment on above: Performed By: #### A SARI SANCHES, ALC, CBC, BMP, ADIFF, GFR #### [place] [address] Hgb 15.3 G/dL Normal 14.0-18.0 [facility] ([place]) Comment on above: Performed By: #### A SARI SANCHES, ALC, CBC, BMP, ADIFF, GFR #### [place] [address] MCH (RBC) [Entitic mass] 33.7 pg High 27.0-31.2 [facility] ([place]) Comment on above: Performed By: #### A SARI SANCHES, ALC, CBC, BMP, ADIFF, GFR #### [address] [address] MCHC 35.0 G/dL Normal 31.8-35.4 [facility] ([place]) Comment on above: Performed By: #### A SARI SANCHES, ALC, CBC, BMP, ADIFF, GFR #### [address] [address] MCV (RBC) [Entitic vol] 96.4 fL High 80.0-94.0 A [facility] ([place]) Comment on above: Performed By: #### A SARI SANCHES, STEFANI, CBC, BMP, ADIFF, GFR #### [address] [address] Platelet 175 10 3/mcL Normal 130-400 [facility] ([place]) Comment on above: Performed By: #### A SARI SANCHES, STEFANI, CBC, BMP, ADIFF, GFR #### [address] [address] Platelet mean volume (Bld) [Entitic vol] 9.5 fL Normal 7.4-10.4 [facility] ([place]) Comment on above: Performed By: #### A SARI SANCHES, STEFANI, CBC, BMP, ADIFF, GFR #### [address] [address] RBC 4.53 10 6/mcL Normal 4.04-6.13 [facility] ([place]) Comment on above: Performed By: #### A SARI SANCHES, ALC, CBC, BMP, ADIFF, GFR #### [address] [address] WBC 4.5 10 3/mcL Low 4.6-10.8 [facility] ([place]) Comment on above: Performed By: #### A SARI SANCHES, ALC, CBC, BMP, ADIFF, GFR #### [address] [address] CMPon 05-10-2023 Albumin Level 3.7 G/dL Normal 3.4-4.8 [facility] ([place]) Comment on above: Performed By: #### A SARI SANCHES, ALC, CBC, BMP, ADIFF, GFR #### [address] [address] Albumin/Globulin [Mass ratio] 1.2 {ratio} Normal 1.1-2.5 [facility] ([place]) Comment on above: Performed By: #### A SARI SANCHES, ALC, CBC, BMP, ADIFF, GFR #### [address] [address] ALP [Catalytic activity/Vol] 68 U/L Normal 40-135 [facility] ([place]) Comment on above: Performed By: #### A SARI SANCHES, ALC, CBC, BMP, ADIFF, GFR #### [place] [address] ALT [Catalytic activity/Vol] 21 U/L Normal 16-63 [facility] ([place]) Comment on above: Performed By: #### A SARI ASNCHES, ALC, CBC, BMP, ADIFF, GFR #### [address] [address] AST [Catalytic activity/Vol] 15 U/L Normal 10-40 [facility] ([place]) Comment on above: Performed By: #### A SARI SANCHES, ALC, CBC, BMP, ADIFF, GFR #### [address] [address] Bili Total 1.0 mg/dL Normal 0.2-1.0 [facility] ([place]) Comment on above: Result Comment: Use of this assay is not recommended for patients undergoing treatment with eltrombopag due to the potential for falsely elevated results. Performed By: #### A SARI SANCHES, ALC, CBC, BMP, ADIFF, GFR #### [address] [address] BUN/Creatinine Ratio 8 ratio Normal 7-27 [facility] ([place] Comment on above: Performed By: #### A SARI SANCHES, ALC, CBC, BMP, ADIFF, GFR #### [place] [id number] Calcium [Mass/Vol] 8.8 mg/dL Normal 8.4-10.2 [facility] ([place]) Comment on above: Performed By: #### A SARI SANCHES, ALC, CBC, BMP, ADIFF, GFR #### [address] [address] Chloride [Moles/Vol] 100 mmol/L Normal 98-107 [facility] ([place]) Comment on above: Performed By: #### A SARI SANCHES, ALC, CBC, BMP, ADIFF, GFR #### [address] [address] CO2 [Moles/Vol] 34 mmol/L High 23-31 [facility] ([place]) Comment on above: Performed By: #### A SARI SANCHES, ALC, CBC, BMP, ADIFF, GFR #### [address] [address] Creatinine [Mass/Vol] 1.10 mg/dL Normal 0.70-1.30 [facility] ([place]) Comment on above: Performed By: #### A SARI SANCHES, ALC, CBC, BMP, ADIFF, GFR #### [address] [address] Electrolyte Balance 5.0 mEq/L Normal 4.0-15.0 [facility] ([place]) Comment on above: Performed By: #### A SARI SANCHES, ALC, CBC, BMP, ADIFF, GFR #### [address] [address] Globulin 3.1 G/dL Normal [facility] ([place] Comment on above: Performed By: #### A SARI SANCHES, ALC, CBC, BMP, ADIFF, GFR #### [address] [address] Glucose [Mass/Vol] 166 mg/dL High 80-115 [facility] ([place]) Comment on above: Performed By: #### A SARI SANCHES, ALC, CBC, BMP, ADIFF, GFR #### [address] [address] Potassium [Moles/Vol] 4.3 mmol/L Normal 3.5-5.1 [facility] ([place]) Comment on above: Performed By: #### A SARI SANCHES, ALC, CBC, BMP, ADIFF, GFR #### [address] [address] Sodium [Moles/Vol] 139 mmol/L Normal 136-145 [facility] ([place]) Comment on above: Performed By: #### A SARI SANCHES, ALC, CBC, BMP, ADIFF, GFR #### [place] [address] Total Protein 6.8 G/dL Normal 6.4-8.2 [facility] ([place]) Comment on above: Performed By: #### A SARI SANCHES, ALC, CBC, BMP, ADIFF, GFR #### [place] [address] Urea nitrogen [Mass/Vol] 9 mg/dL Normal 7-18 [facility] ([place]) Comment on above: Performed By: #### A SARI SANCHES, ALC, CBC, BMP, ADIFF, GFR #### [place] [address] VIDHon 05-10-2023 Vit. D 25-Hydroxy 45.1 ng/mL Normal [facility] ([place]) Comment on above: Result Comment: Inte rpretive Values Based on Total 25(OH) Vitamin D: Deficient <20 ng/mL Insufficient 20 - <30 ng/mL Sufficient 30-100 ng/mL Performed By: #### A SARI SANCHES, ALC, CBC, BMP, ADIFF, GFR #### [address] [address] .Auto Diffon 04-09-2023 Basophil, Absolute 0.0 10 3/mcL Normal 0.0-0.2 [facility] ([place] Comment on above: Performed By: #### A SARI SANCHES, ALC, CBC, BMP, ADIFF, GFR #### [place] [address] Basophils/100 WBC (Bld) 0.5 % Normal 0.0-2.5 A [facility] ([place]) Comment on above: Performed By: #### A MD MYRONW, ALC, CBC, BMP, ADIFF, GFR #### [address] [address] Eosinophil, Absolute 0.1 10 3/mcL Normal 0.0-0.4 [facility] ([place] Comment on above: Performed By: #### A MD MYRONW, ALC, CBC, BMP, ADIFF, GFR #### [address] [address] Eosinophils/100 WBC (Bld) 1.5 % Normal 0.0-7.0 [facility] ([place]) Comment on above: Performed By: #### A MD MYRONW, ALC, CBC, BMP, ADIFF, GFR #### [address] [address] Lymphocyte, Absolute 1.1 10 3/mcL Normal 0.8-3.9 [facility] ([place] Comment on above: Performed By: #### A SARI SANCHES, ALC, CBC, BMP, ADIFF, GFR #### [address] [address] Lymphocytes/100 WBC (Bld) 19.6 % Normal 10.0-50.0 [facility] ([place]) Comment on above: Performed By: #### A MD MYRONW, ALC, CBC, BMP, ADIFF, GFR #### [address] [address] Monocyte, Absolute 0.4 10 3/mcL Normal 0.2-1.0 [facility] ([place]) Comment on above: Performed By: #### A MD MYRONW, ALC, CBC, BMP, ADIFF, GFR #### [address] [address] Monocytes/100 WBC (Bld) 7.7 % Normal 1.7-13.0 A [facility] ([place]) Comment on above: Performed By: #### A MYRON, MDW, ALC, CBC, BMP, ADIFF, GFR #### [address] [address] Neutrophils/100 WBC (Bld) 70.7 % Normal 37.0-80.0 [facility] ([place]) Comment on above: Performed By: #### A SARI SANCHES, ALC, CBC, BMP, ADIFF, GFR #### [address] [address] .GFRon 04-09-2023 GFR 69 ml/min/1.73sqm Normal [facility] ([place]) Comment on above: Result Comment: GFR [...] SANCHES, ALC, CBC, BMP, ADIFF, GFR #### [address] [address] GFR Non- 57 ml/min/1.73sqm Normal [facility] ([place]) Comment on above: Result Comment: GFR Population [...] SANCHES, ALC, CBC, BMP, ADIFF, GFR #### [address] [address] .MDWon 04-09-2023 Monocyte Distribution Width 16.75 Normal 0.00-20.00 [facility] ([place]) Comment on above: Result Comment: For ED adult patients suspected of sepsis, MDW<=20.0 does not rule out sepsis or risk of sepsis Performed By: #### A SARI SANCHES, ALC, CBC, BMP, ADIFF, GFR #### [place] [address] .NEUABSon 04-09-2023 Neutrophil, Absolute 3.8 10 3/mcL Normal 2.9-6.2 [facility] ([place] Comment on above: Performed By: #### A SARI SANCHES, ALC, CBC, BMP, ADIFF, GFR #### [place] [address] Martell 04-09-2023 Ethanol Level <3 Normal 0-3 [facility] ([place]) Comment on above: Performed By: #### A SARI SANCHES, ALC, CBC, BMP, ADIFF, GFR #### [place] [address] CBCon 04-09-2023 Erythrocyte distribution width (RBC) [Ratio] 13.7 % Normal 11.5-14.5 [facility] ([place]) Comment on above: Performed By: #### A SARI SANCHES, ALC, CBC, BMP, ADIFF, GFR #### [place] [address] Hematocrit (Bld) [Volume fraction] 43.8 % Normal 42.0-52.0 [facility] ([place] Comment on above: Performed By: #### A SARI SANCHES, ALC, CBC, BMP, ADIFF, GFR #### [place] [address] Hgb 15.4 G/dL Normal 14.0-18.0 [facility] ([place]) Comment on above: Performed By: #### A SARI SANCHES, ALC, CBC, BMP, ADIFF, GFR #### [address] [address] MCH (RBC) [Entitic mass] 33.9 pg High 27.0-31.2 [facility] ([place]) Comment on above: Performed By: #### A SARI SANCHES, ALC, CBC, BMP, ADIFF, GFR #### [address] [address] MCHC 35.1 G/dL Normal 31.8-35.4 [facility] ([place]) Comment on above: Performed By: #### A SARI SANCHES, ALC, CBC, BMP, ADIFF, GFR #### [address] [address] MCV (RBC) [Entitic vol] 96.4 fL High 80.0-94.0 A [facility] ([place] Comment on above: Performed By: #### A SARI SANCHES, ALC, CBC, BMP, ADIFF, GFR #### [address] [address] Platelet 176 10 3/mcL Normal 130-400 [facility] ([place]) Comment on above: Performed By: #### A SARI SANCHES, ALC, CBC, BMP, ADIFF, GFR #### [address] [address] Platelet mean volume (Bld) [Entitic vol] 8.8 fL Normal 7.4-10.4 [facility] ([place] Comment on above: Performed By: #### A SARI SANCHES, ALC, CBC, BMP, ADIFF, GFR #### [address] [address] RBC 4.54 10 6/mcL Normal 4.04-6.13 [facility] ([place]) Comment on above: Performed By: #### A SARI SANCHES, ALC, CBC, BMP, ADIFF, GFR #### [address] [address] WBC 5.4 10 3/mcL Normal 4.6-10.8 [facility] ([place]) Comment on above: Performed By: #### A SARI SANCHES, ALC, CBC, BMP, ADIFF, GFR #### [address] [address] CMPon 04-09-2023 Albumin Level 3.8 G/dL Normal 3.4-4.8 [facility] ([place] Comment on above: Performed By: #### A SARI SANCHES, ALC, CBC, BMP, ADIFF, GFR #### [address] [address] Albumin/Globulin [Mass ratio] 1.1 {ratio} Normal 1.1-2.5 [facility] ([place]) Comment on above: Performed By: #### A SARI SANCHES, ALC, CBC, BMP, ADIFF, GFR #### [address] [address] ALP [Catalytic activity/Vol] 70 U/L Normal 40-135 [facility] ([place]) Comment on above: Performed By: #### A SARI SANCHES, ALC, CBC, BMP, ADIFF, GFR #### [address] [address] ALT [Catalytic activity/Vol] 22 U/L Normal 16-63 [facility] ([place]) Comment on above: Performed By: #### A SARI SANCHES, ALC, CBC, BMP, ADIFF, GFR #### [address] [address] AST [Catalytic activity/Vol] 16 U/L Normal 10-40 [facility] ([place]) Comment on above: Performed By: #### A SARI SANCHES, ALC, CBC, BMP, ADIFF, GFR #### [address] [address] Bili Total 0.8 mg/dL Normal 0.2-1.0 [facility] ([place]) Comment on above: Result Comment: Use of this assay is not recommended for patients undergoing treatment with eltrombopag due to the potential for falsely elevated results. Performed By: #### A SARI SANCHES, ALC, CBC, BMP, ADIFF, GFR #### [address] [address] BUN/Creatinine Ratio 10 ratio Normal 7-27 [facility] ([place] Comment on above: Performed By: #### A SARI SANCHES, ALC, CBC, BMP, ADIFF, GFR #### [address] [address] Calcium [Mass/Vol] 9.2 mg/dL Normal 8.4-10.2 [facility] ([place]) Comment on above: Performed By: #### A SARI SANCHES, ALC, CBC, BMP, ADIFF, GFR #### [address] [address] Chloride [Moles/Vol] 98 mmol/L Normal 98-107 [facility] ([place]) Comment on above: Performed By: #### A SARI SANCHES, ALC, CBC, BMP, ADIFF, GFR #### [address] [address] CO2 [Moles/Vol] 33 mmol/L High 23-31 [facility] ([place]) Comment on above: Performed By: #### A SARI SANCHES, ALC, CBC, BMP, ADIFF, GFR #### [address] [address] Creatinine [Mass/Vol] 1.27 mg/dL Normal 0.70-1.30 [facility] ([place]) Comment on above: Performed By: #### A SARI SANCHES, ALC, CBC, BMP, ADIFF, GFR #### [address] [address] Electrolyte Balance 7.0 mEq/L Normal 4.0-15.0 [facility] ([place]) Comment on above: Performed By: #### A SARI SANCHES, ALC, CBC, BMP, ADIFF, GFR #### [address] [address] Globulin 3.4 G/dL Normal [facility] ([place]) Comment on above: Performed By: #### A SARI SANCHES, ALC, CBC, BMP, ADIFF, GFR #### [address] [address] Glucose [Mass/Vol] 157 mg/dL High 80-115 [facility] ([place]) Comment on above: Performed By: #### A SARI SANCHES, ALC, CBC, BMP, ADIFF, GFR #### [address] [address] Potassium [Moles/Vol] 3.8 mmol/L Normal 3.5-5.1 [facility] ([place]) Comment on above: Performed By: #### A SARI SANCHES, ALC, CBC, BMP, ADIFF, GFR #### [address] [address] Sodium [Moles/Vol] 138 mmol/L Normal 136-145 [facility] ([place]) Comment on above: Performed By: #### A SARI SANCHES, ALC, CBC, BMP, ADIFF, GFR #### [address] [address] Total Protein 7.2 G/dL Normal 6.4-8.2 [facility]) Comment on above: Performed By: #### A SARI SANCHES, ALC, CBC, BMP, ADIFF, GFR #### [address] [address] Urea nitrogen [Mass/Vol] 13 mg/dL Normal 7-18 [facility]) Comment on above: Performed By: #### A SARI SANCHES, ALC, CBC, BMP, ADIFF, GFR #### [address] [address] CVFLURVon 04-09-2023 FLU A PCR Negative Normal Negative [facility] ([place]) Comment on above: Performed By: #### A DIFF, CBC, GFR, BMP, SARI HENDRIX #### [address] [address] FLU B PCR Negative Normal Negative [facility] ([place]) Comment on above: Performed By: #### A DIFF, CBC, GFR, BMP, SARI HENDRIX #### [address] [address] RSV PCR Negative Normal Negative [facility] ([place]) Comment on above: Performed By: #### A DIFF, CBC, GFR, BMP, SARI HENDRIX #### [place] [id number] [place], [place] [address] SARS-CoV-2 (COVID-19) RNA JENNIFER+probe Ql (Unsp spec) Negative Normal Negative [facility] ([place]) Comment on above: Result Comment: Resu lts [...] DIFF, CBC, GFR, BMP, SARI HENDRIX #### [place] [id number] [place], [place] [address] LABORATORYOrdered By: SYSTEM SYSTEM on 04-09-2023 Albumin [...] UDRUGon 04-09-2023 Amphetamine (u) Negative Normal Negative [facility] ([place]) Comment on above: Performed By: #### T OXSC #### [address] [address] Barbiturate (u) Negative Normal Negative [facility] ([place]) Comment on above: Performed By: #### T OXSC #### [address] [address] Benzodiazepine (u) Negative Normal Negative [facility] ([place]) Comment on above: Performed By: #### T OXSC #### [address] [address] Cannabinoid (u) Negative Normal Negative [facility] ([place]) Comment on above: Performed By: #### T OXSC #### [address] [address] Cocaine Ql (U) Negative Normal Negative [facility] ([place]) Comment on above: Performed By: #### T OXSC #### [address] [address] Methadone Ql (U) Negative Normal Negative [facility] ([place]) Comment on above: Performed By: #### T OXSC #### [address] [address] Opiate (u) Negative Normal Negative [facility] ([place]) Comment on above: Performed By: #### T OXSC #### [address] [address] PCP (u) Negative Normal Negative [facility] ([place]) Comment on above: Performed By: #### T OXSC #### [address] [address] Urine Drugs screened: See Below Normal [facility] ([place]) Comment on above: Result Comment: This drug [...] Performed By: #### T OXSC #### [address] [address] FOLATE, SERUMon 02-25-2023 Folate [Mass/Vol] 6.2 ng/mL Normal 4.8-24.2 [facility] Comment on above: Result Comment: Test ing performed by [facility] [address] [place] [id number] Performed By: #### F OL1 #### [facility] [address] [place] [address] [facility] HEMOGLOBIN A1Con 02-25-2023 Glucose [Mass/Vol] 103 mg/dL Normal 68-114 [facility] Comment on above: Performed By: #### H A1C #### DOOR PULLER: BERNY Curtis [facility] [employer] [facility] [address] [place] [address] HbA1c (Bld) [Mass fraction] 5.2 % Normal 4.0-5.6 [facility] Comment on above: Result Comment: Hemo globin A1C level between 5.7% and 6.4% indicates prediabetes. Hemoglobin A1C level greater than or equal to 6.5% indicates diabetes. Hemoglobin A1C method utilizes NGSP/DCCT standardized equation. Performed By: #### H A1C #### DOOR PULLER: BERNY Curtis [facility] [address] [place] [address] LIPID PROFILEon 02-25-2023 CARDIAC RISK 2 {ratio} Normal 0-5 [facility] Comment on above: Performed By: #### L IP #### DOOR PULLER: BERNY Curtis [facility] [address] [place] [address] Cholesterol [Mass/Vol] 125 mg/dL Normal 0-200 [facility] Comment on above: Performed By: #### L IP #### DOOR PULLER: BERNY [facility] [address] [place] [address] Cholesterol in LDL [Mass/Vol] 39 mg/dL Normal 0-100 [facility] Comment on above: Performed By: #### L IP #### DOOR PULLER: [facility]T [address] [place] [address] Cholesterol in VLDL [Mass/Vol] 6 mg/dL Normal 0-40 [facility] Comment on above: Performed By: #### L IP #### DOOR PULLER: BERNY Curtis [facility] [address] [place] [address] HDL-CHOL 80 mg/dL High 40-60 [facility] Comment on above: Result Comment: NCEP Guidelines: HDL < 40 mg/dl is a major risk factor for CHD. HDL > 60 mg/dl is a negative risk factor for CHD. Performed By: #### L IP #### DOOR PULLER: BERNY [facility] [address] [place] [address] Triglyceride [Mass/Vol] 30 mg/dL Normal 0-150 [facility] Comment on above: Performed By: #### L IP #### DOOR PULLER: BERNY Curtis [facility] [address] [place] [address] TSH REFLEX FT4 IF IND.on TSH, ULTRASENSITIVE 1.81 u[IU]/mL Normal 0.27-4.20 [facility] Comment on above: Performed By: #### T SHIF #### DOOR PULLER: BERNY Curtis [facility] [address] [place] [address] VITAMIN B12 LEVELon 02-26-20 23 Cobalamin (Vitamin B12) [Mass/Vol] 641 pg/mL Normal 211-911 [facility] Comment on above: Result Comment: Test ing performed by [facility] [address] [place] [address] Performed By: #### V TB12 #### [facility] [address] [place] [address] [facility] UFENTSon 02-24-2023 Fentanyl (u) Negative Normal Negative [facility] ([place]) Comment on above: Result Comment: Test ing has been performed FOR MEDICAL PURPOSES ONLY. Performed By: #### A DIFF, CBC, GFR, BMP, ANEU, MDW #### [address] [address] UOXYSon 02-24-2023 Oxycodone (u) Negative Normal Negative [facility] ([place] Comment on above: Result Comment: Test ing has been performed FOR MEDICAL PURPOSES ONLY. Performed By: #### A DIFF, CBC, GFR, BMP, ANEU, MDW #### [address] [address] .Auto Diffon 02-23-2023 Basophil, Absolute 0.0 10 3/mcL Normal 0.0-0.2 [facility] ([place]) Comment on above: Performed By: #### T OXSC #### [address] [address] Basophils/100 WBC (Bld) 0.3 % Normal 0.0-2.5 A [facility] ([place]) Comment on above: Performed By: #### T OXSC #### [address] [address] Eosinophil, Absolute 0.1 10 3/mcL Normal 0.0-0.4 [facility] ([place]) Comment on above: Performed By: #### T OXSC #### [address] [address] Eosinophils/100 WBC (Bld) 1.0 % Normal 0.0-7.0 [facility] ([place]) Comment on above: Performed By: #### T OXSC #### [address] [address] Lymphocyte, Absolute 0.9 10 3/mcL Normal 0.8-3.9 [facility] ([place]) Comment on above: Performed By: #### T OXSC #### [address] [address] Lymphocytes/100 WBC (Bld) 12.5 % Normal 10.0-50.0 [facility] ([place]) Comment on above: Performed By: #### T OXSC #### [address] [address] Monocyte, Absolute 0.6 10 3/mcL Normal 0.2-1.0 [facility] ([place] Comment on above: Performed By: #### T OXSC #### [address] [address] Monocytes/100 WBC (Bld) 8.6 % Normal 1.7-13.0 A [facility] ([place] Comment on above: Performed By: #### T OXSC #### [address] [address] Neutrophils/100 WBC (Bld) 77.6 % Normal 37.0-80.0 [facility] ([place] Comment on above: Performed By: #### T OXSC #### [address] [address] .GFRon 02-23-2023 GFR Non- 87 ml/min/1.73sqm Normal [facility] ([place]) Comment on above: Result Comment: GFR Population [...] meters Performed By: #### T OXSC #### [address] [address] GFR 106 ml/min/1.73sqm Normal [facility] ([place]) Comment on above: Result Comment: GFR Population [...] meters Performed By: #### T OXSC #### [place] [address] .MDWon 02-23-2023 Monocyte Distribution Width 17.49 Normal 0.00-20.00 [facility] ([place]) Comment on above: Result Comment: For ED adult patients suspected of sepsis, MDW<=20.0 does not rule out sepsis or risk of sepsis Performed By: #### T OXSC #### [place] [address] .NEUABSon 02-23-2023 Neutrophil, Absolute 5.7 10 3/mcL Normal 2.9-6.2 [facility] ([place]) Comment on above: Performed By: #### T OXSC #### [place] [address] ACETAon 02-23-2023 Acetaminophen Lvl <0 Normal 10.0-30.0 [facility] ([place]) Comment on above: Performed By: #### T OXSC #### [place] [address] Martell 02-23-2023 Ethanol Level <3 Normal 0-3 [facility] ([place]) Comment on above: Performed By: #### T OXSC #### [place] [address] CBCon 02-23-2023 Erythrocyte distribution width (RBC) [Ratio] 14.8 % High 11.5-14.5 [facility] ([place]) Comment on above: Performed By: #### T OXSC #### [place] [address] Hematocrit (Bld) [Volume fraction] 41.8 % Low 42.0-52.0 [facility] ([place]) Comment on above: Performed By: #### T OXSC #### [place] [address] [address] Hgb 14.3 G/dL Normal 14.0-18.0 [facility] ([place]) Comment on above: Performed By: #### T OXSC #### [place] [address] [address] MCH (RBC) [Entitic mass] 32.6 pg High 27.0-31.2 [facility] ([place]) Comment on above: Performed By: #### T OXSC #### Mahnaz [address] [address] MCHC 34.1 G/dL Normal 31.8-35.4 [facility] ([place]) Comment on above: Performed By: #### T OXSC #### Mahnaz [address] [address] MCV (RBC) [Entitic vol] 95.6 fL High 80.0-94.0 A [facility] ([place]) Comment on above: Performed By: #### T OXSC #### Mahnaz [address] [address] Platelet 204 10 3/mcL Normal 130-400 [facility] ([place]) Comment on above: Performed By: #### T OXSC #### Mahnaz [address] [address] Platelet mean volume (Bld) [Entitic vol] 9.5 fL Normal 7.4-10.4 [facility] ([place] Comment on above: Performed By: #### T OXSC #### Mahnaz [address] [address] RBC 4.38 10 6/mcL Normal 4.04-6.13 [facility] ([place] Comment on above: Performed By: #### T OXSC #### Mahnaz [address] [address] WBC 7.3 10 3/mcL Normal 4.6-10.8 [facility] ([place] Comment on above: Performed By: #### T OXSC #### [address] [address] CMPon 02-23-2023 Albumin Level 4.0 G/dL Normal 3.4-4.8 [facility] ([place] Comment on above: Performed By: #### T OXSC #### [address] [address] Albumin/Globulin [Mass ratio] 1.1 {ratio} Normal 1.1-2.5 [facility] ([place] Comment on above: Performed By: #### T OXSC #### [address] [address] ALP [Catalytic activity/Vol] 79 U/L Normal 40-135 [facility] ([place] Comment on above: Performed By: #### T OXSC #### [address] [address] ALT [Catalytic activity/Vol] 31 U/L Normal 16-63 [facility] ([place] Comment on above: Performed By: #### T OXSC #### [address] [address] AST [Catalytic activity/Vol] 23 U/L Normal 10-40 [facility] ([place] Comment on above: Performed By: #### T OXSC #### [address] [address] Bili Total 0.7 mg/dL Normal 0.2-1.0 [facility] ([place]) Comment on above: Result Comment: Use of this assay is not recommended for patients undergoing treatment with eltrombopag due to the potential for falsely elevated results. Performed By: #### T OXSC #### [address] [address] BUN/Creatinine Ratio 14 ratio Normal 7-27 [facility] ([place]) Comment on above: Performed By: #### T OXSC #### [address] [address] Calcium [Mass/Vol] 9.5 mg/dL Normal 8.4-10.2 [facility] ([place]) Comment on above: Performed By: #### T OXSC #### [address] [address] Chloride [Moles/Vol] 99 mmol/L Normal 98-107 [facility] ([place] Comment on above: Performed By: #### T OXSC #### [address] [address] CO2 [Moles/Vol] 32 mmol/L High 23-31 [facility] ([place] Comment on above: Performed By: #### T OXSC #### [address] [address] Creatinine [Mass/Vol] 0.88 mg/dL Normal 0.70-1.30 [facility] ([place]) Comment on above: Performed By: #### T OXSC #### [address] [address] Electrolyte Balance 9.0 mEq/L Normal 4.0-15.0 [facility] ([place]) Comment on above: Performed By: #### T OXSC #### [address] [address] Globulin 3.6 G/dL Normal [facility] ([place] Comment on above: Performed By: #### T OXSC #### [address] [address] Glucose [Mass/Vol] 89 mg/dL Normal 80-115 [facility] ([place]) Comment on above: Performed By: #### T OXSC #### [address] [address] Potassium [Moles/Vol] 4.5 mmol/L Normal 3.5-5.1 [facility] ([place]) Comment on above: Performed By: #### T OXSC #### [address] [address] Sodium [Moles/Vol] 140 mmol/L Normal 136-145 [facility] ([place]) Comment on above: Performed By: #### T OXSC #### [address] [address] Total Protein 7.6 G/dL Normal 6.4-8.2 [facility] ([place] Comment on above: Performed By: #### T OXSC #### [address] [address] Urea nitrogen [Mass/Vol] 12 mg/dL Normal 7-18 [facility] ([place] Comment on above: Performed By: #### T OXSC #### [address] [address] [id number] 02-23-2023 SARS-CoV-2 (COVID-19) RNA JENNIFER+probe Ql (Unsp spec) Negative Normal Negative [facility] ([place] Comment on above: Performed By: #### A DIFF, CBC, GFR, BMP, ANEU, MDW #### [address] [address] SARS-CoV-2 (COVID-19) RNA JENNIFER+probe Ql (Unsp spec) Normal [facility] ([place]) Comment on above: Result Comment: Nega tive [...] DIFF, CBC, GFR, BMP, ANEU, MDW #### [address] [address] FLURSVon 02-23-2023 Flu A PCR (AO) Negative Normal Negative [facility] ([place]) Comment on above: Result Comment: Posi tive [...] virus (RSV) nucleic acid in nasopharyngeal swab ([employer]) specimens from patients with signs and symptoms of respiratory infection in conjunction with clinical and laboratory findings. The test is intended for use as an aid in the differential diagnosis of influenza A virus, influenza B virus, and RSV in humans and is not intended to detect influenza C. Performed By: #### A DIFF, CBC, GFR, BMP, ANEU, MDW #### [address] [address] Flu B PCR (AO) Negative Normal Negative [facility] ([place]) Comment on above: Result Comment: Posi tive [...] virus (RSV) nucleic acid in nasopharyngeal swab ([employer]) specimens from patients with signs and symptoms of respiratory infection in conjunction with clinical and laboratory findings. The test is intended for use as an aid in the differential diagnosis of influenza A virus, influenza B virus, and RSV in humans and is not intended to detect influenza C. Performed By: #### A DIFF, CBC, GFR, BMP, SARI HNEDRIX #### [address] [address] RSV PCR (AO) Negative Normal Negative [facility] ([place]) Comment on above: Result Comment: Posi tive [...] virus (RSV) nucleic acid in nasopharyngeal swab ([employer]) specimens from patients with signs and symptoms of respiratory infection in conjunction with clinical and laboratory findings. The test is intended for use as an aid in the differential diagnosis of influenza A virus, influenza B virus, and RSV in humans and is not intended to detect influenza C. Performed By: #### A DIFF, CBC, GFR, BMP, SARI HENDRIX #### [address] [place], [place] [address] SALon 02-23-2023 Salicylate Level 0.4 mg/dL Low 2.8-20.0 [facility] ([place]) Comment on above: Performed By: #### T OXSC #### [place] [address] UDRUGon 02-23-2023 Amphetamine (u) Negative Normal Negative [facility] ([place]) Comment on above: Performed By: #### A DIFF, CBC, GFR, BMP, ANEU, SARI #### [address] [place] [address] Barbiturate (u) Negative Normal Negative [facility] ([place]) Comment on above: Performed By: #### A DIFF, CBC, GFR, BMP, ANEU, SARI #### [address] [address] Benzodiazepine (u) Negative Normal Negative [facility] ([place]) Comment on above: Performed By: #### A DIFF, CBC, GFR, BMP, ANEUSARI #### [place] [address] Cannabinoid (u) Negative Normal Negative [facility] ([place] Comment on above: Performed By: #### A DIFF, CBC, GFR, BMP, SARI HENDRIX #### [address] [address] Cocaine Ql (U) Negative Normal Negative [facility] ([place] Comment on above: Performed By: #### A DIFF, CBC, GFR, BMP, SARI HENDRIX #### [address] [address] Methadone Ql (U) Negative Normal Negative [facility] ([place] Comment on above: Performed By: #### A DIFF, CBC, GFR, BMP, ANEU, SARI #### [address] [address] Opiate (u) Negative Normal Negative [facility] ([place] Comment on above: Performed By: #### A DIFF, CBC, GFR, BMP, ANEUSARI #### [place] [address] PCP (u) Negative Normal Negative [facility] ([place] Comment on above: Performed By: #### A DIFF, CBC, GFR, BMP, ANEUSARI #### [address] [address] Urine Drugs screened: See Below Normal [facility] ([place]) Comment on above: Result Comment: This drug [...] DIFF, CBC, GFR, BMP, SARI HENDRIX #### [address] [place] [address] URINon 02-23-2023 Color (U) Yellow Normal [facility] ([place]) Comment on above: Performed By: #### A DIFF, CBC, GFR, NANCI, SARI HENDRIX #### [address] [address] Glucose (U) [Mass/Vol] Negative Normal Negative [facility] ([place]) Comment on above: Performed By: #### A DIFF, CBC, GFR, NANCI, SARI HENDRIX #### [address] [address] Ketones Ql (U) Negative Normal Negative [facility] ([place] Comment on above: Performed By: #### A DIFF, CBC, GFR, NANCI, SARI HENDRIX #### [address] [address] UA Appear Clear Normal Clear [facility] ([place] Comment on above: Performed By: #### A DIFF, CBC, GFR, NANCI, SARI HENDRIX #### [address] [address] UA Blood Negative Normal Negative [facility] ([place] Comment on above: Performed By: #### A DIFF, CBC, GFR, BMP, SARI HENDRIX #### [address] [address] UA Leuk Est Negative Normal Negative [facility] ([place] Comment on above: Performed By: #### A DIFF, CBC, GFR, BMP, ANEU, MDW #### [address] [address] UA Nitrite Negative Normal Negative [facility] ([place] Comment on above: Performed By: #### A DIFF, CBC, GFR, BMP, ANEU, W #### [address] [address] UA pH 7.0 Normal 5.0 - 8.0 [facility] ([place]) Comment on above: Performed By: #### A DIFF, CBC, GFR, BMP, ANEU, W #### [address] [address] UA Protein Negative Normal Negative [facility] ([place] Comment on above: Performed By: #### A DIFF, CBC, GFR, BMP, ANEU, W #### [address] [address] UA Spec Grav 1.020 Normal 1.015-1.025 [facility] ([place]) Comment on above: Performed By: #### A DIFF, CBC, GFR, BMP, SIMEON, W #### [address] [address] UA Specimen Type Clean Catch Normal [facility] ([place] Comment on above: Performed By: #### A DIFF, CBC, GFR, BMP, SIMEON, W #### [address] [address] UA Urobilinogen 1.0 E.U./dL Normal 0.2-1.0 [facility] ([place]) Comment on above: Performed By: #### A DIFF, CBC, GFR, BMP, ANEU, W #### [address] [address] Urobilinogen (U) [Mass/Vol] Negative Normal Negative [facility] ([place] Comment on above: Performed By: #### A DIFF, CBC, GFR, BMP, ANEU, W #### [place] [address] .Auto Diff02-22-2023 Basophil, Absolute 0.0 10 3/mcL Normal 0.0-0.2 [facility] ([place] Comment on above: Performed By: #### A DIFF, CBC, GFR, BMP, ANEUSARI #### [address] [address] Basophils/100 WBC (Bld) 0.6 % Normal 0.0-2.5 A [facility] ([place] Comment on above: Performed By: #### A DIFF, CBC, GFR, BMP, ANEUSARI #### [address] [address] Eosinophil, Absolute 0.1 10 3/mcL Normal 0.0-0.4 [facility] ([place] Comment on above: Performed By: #### A DIFF, CBC, GFR, BMP, SARI HENDRIX #### [address] [address] Eosinophils/100 WBC (Bld) 0.9 % Normal 0.0-7.0 [facility] ([place] Comment on above: Performed By: #### A DIFF, CBC, GFR, BMP, SARI HENDRIX #### [address] [address] Lymphocyte, Absolute 0.9 10 3/mcL Normal 0.8-3.9 [facility] ([place] Comment on above: Performed By: #### A DIFF, CBC, GFR, BMP, SARI HENDRIX #### [address] [address] Lymphocytes/100 WBC (Bld) 14.3 % Normal 10.0-50.0 [facility] ([place] Comment on above: Performed By: #### A DIFF, CBC, GFR, BMP, SARI HENDRIX #### [address] [address] Monocyte, Absolute 0.6 10 3/mcL Normal 0.2-1.0 [facility] ([place] Comment on above: Performed By: #### A DIFF, CBC, GFR, BMP, SARI HENDRIX #### [address] [address] Monocytes/100 WBC (Bld) 9.0 % Normal 1.7-13.0 A [facility] ([place]) Comment on above: Performed By: #### A DIFF, CBC, GFR, BMPSIMEON MDW #### [address] [place], [place] [address] Neutrophils/100 WBC (Bld) 75.2 % Normal 37.0-80.0 [facility] ([place]) Comment on above: Performed By: #### A DIFF, CBC, GFR, BMP, SARI HENDRIX #### [address] [address] .GFRon 02-22-2023 GFR 106 ml/min/1.73sqm Normal [facility] ([place] Comment on above: Result Comment: GFR Population [...] DIFF, CBC, GFR, BMP, SARI HENDRIX #### [address] [address] GFR Non- 87 ml/min/1.73sqm Normal [facility] ([place]) Comment on above: Result Comment: GFR Population [...] DIFF, CBC, GFR, BMP, ANEU, SARI #### [address] [address] .MDWon 02-22-2023 Monocyte Distribution Width 15.93 Normal 0.00-20.00 [facility] ([place]) Comment on above: Result Comment: For ED adult patients suspected of sepsis, MDW<=20.0 does not rule out sepsis or risk of sepsis Performed By: #### A DIFF, CBC, GFR, BMP, ANEUSARI #### [address] [address] .NEUABSon 02-22-2023 Neutrophil, Absolute 5.0 10 3/mcL Normal 2.9-6.2 [facility] ([place] Comment on above: Performed By: #### A DIFF, CBC, GFR, BMP, ANEUSARI #### [address] [address] BMPon 02-22-2023 BUN/Creatinine Ratio 17 ratio Normal 7-27 [facility] ([place] Comment on above: Performed By: #### A DIFF, CBC, GFR, BMP, ANEU, SARI #### [address] [address] Calcium [Mass/Vol] 9.1 mg/dL Normal 8.4-10.2 [facility] ([place]) Comment on above: Performed By: #### A DIFF, CBC, GFR, BMP, ANEUMDW #### [address] [address] Chloride [Moles/Vol] 100 mmol/L Normal 98-107 [facility] ([place] Comment on above: Performed By: #### A DIFF, CBC, GFR, BMP, ANEU, MDW #### [address] [address] CO2 [Moles/Vol] 31 mmol/L Normal 23-31 [facility] ([place]) Comment on above: Performed By: #### A DIFF, CBC, GFR, BMP, SARI HENDRIX #### [address] [address] Creatinine [Mass/Vol] 0.88 mg/dL Normal 0.70-1.30 [facility] ([place]) Comment on above: Performed By: #### A DIFF, CBC, GFR, BMP, SARI HENDRIX #### [address] [address] Electrolyte Balance 8.0 mEq/L Normal 4.0-15.0 [facility] ([place] Comment on above: Performed By: #### A DIFF, CBC, GFR, BMP, SARI HENDRIX #### [address] [address] Glucose [Mass/Vol] 95 mg/dL Normal 80-115 [facility] ([place]) Comment on above: Performed By: #### A DIFF, CBC, GFR, BMP, SARI HENDRIX #### [address] [address] Potassium [Moles/Vol] 4.2 mmol/L Normal 3.5-5.1 [facility] ([place]) Comment on above: Performed By: #### A DIFF, CBC, GFR, BMP, SARI HENDRIX #### [address] [address] Sodium [Moles/Vol] 139 mmol/L Normal 136-145 [facility] ([place]) Comment on above: Performed By: #### A DIFF, CBC, GFR, BMP, SARI HENDRIX #### [address] [address] Urea nitrogen [Mass/Vol] 15 mg/dL Normal 7-18 [facility] ([place]) Comment on above: Performed By: #### A DIFF, CBC, GFR, BMP, SARI HENDRIX #### [address] [address] CBCon 02-22-2023 Erythrocyte distribution width (RBC) [Ratio] 14.8 % High 11.5-14.5 [facility] ([place]) Comment on above: Performed By: #### A DIFF, CBC, GFR, BMP, SARI HENDRIX #### [address] [address] Hematocrit (Bld) [Volume fraction] 41.0 % Low 42.0-52.0 [facility] ([place]) Comment on above: Performed By: #### A DIFF, CBC, GFR, BMP, ANEUSARI #### [address] [address] Hgb 14.1 G/dL Normal 14.0-18.0 [facility] ([place] Comment on above: Performed By: #### A DIFF, CBC, GFR, BMP, SARI HENDRIX #### [address] [address] MCH (RBC) [Entitic mass] 32.4 pg High 27.0-31.2 [facility] ([place]) Comment on above: Performed By: #### A DIFF, CBC, GFR, BMP, SARI HENDRIX #### [address] [address] MCHC 34.3 G/dL Normal 31.8-35.4 [facility] ([place] Comment on above: Performed By: #### A DIFF, CBC, GFR, BMP, SARI HENDRIX #### [address] [address] MCV (RBC) [Entitic vol] 94.4 fL High 80.0-94.0 [facility] ([place]) Comment on above: Performed By: #### A DIFF, CBC, GFR, BMP, SARI HENDRIX #### [address] [address] Platelet 203 10 3/mcL Normal 130-400 [facility] ([place]) Comment on above: Performed By: #### A DIFF, CBC, GFR, BMP, MD SIMEONW #### [address] [address] Platelet mean volume (Bld) [Entitic vol] 8.9 fL Normal 7.4-10.4 [facility] ([place]) Comment on above: Performed By: #### A DIFF, CBC, GFR, BMP, SARI HENDRIX #### [address] [place], [place] [address] RBC 4.34 10 6/mcL Normal 4.04-6.13 [facility] ([place] Comment on above: Performed By: #### A DIFF, CBC, GFR, BMP, SARI HENDRIX #### Mahnaz [address] [address] WBC 6.6 10 3/mcL Normal 4.6-10.8 [facility] ([place] Comment on above: Performed By: #### A DIFF, CBC, GFR, BMPSIMEON MDW #### [address] [address] LABORATORYOrdered By: SYSTEM SYSTEM on 02-22-2023 Basophil, [...] 0.0 10 3/mcL Normal 0.0-0.2 [facility] ([place] Comment on above: Performed By: #### A MYRON, MDW, ALC, CBC, BMP, ADIFF, GFR #### Mahn[address] [address] Basophils/100 WBC (Bld) 0.7 % Normal 0.0-2.5 A [facility] ([place]) Comment on above: Performed By: #### A MD MYRONW, ALC, CBC, BMP, ADIFF, GFR #### [address] [address] Eosinophil, Absolute 0.0 10 3/mcL Normal 0.0-0.4 [facility] ([place] Comment on above: Performed By: #### A MD MYRONW, ALC, CBC, BMP, ADIFF, GFR #### [address] [address] Eosinophils/100 WBC (Bld) 0.7 % Normal 0.0-7.0 [facility] ([place]) Comment on above: Performed By: #### A MD MYRONW, ALC, CBC, BMP, ADIFF, GFR #### [address] [address] Lymphocyte, Absolute 0.8 10 3/mcL Normal 0.8-3.9 [facility] ([place] Comment on above: Performed By: #### A MD MYRONW, ALC, CBC, BMP, ADIFF, GFR #### [address] [address] Lymphocytes/100 WBC (Bld) 14.4 % Normal 10.0-50.0 [facility] ([place]) Comment on above: Performed By: #### A MD MYRONW, ALC, CBC, BMP, ADIFF, GFR #### [address] [address] Monocyte, Absolute 0.5 10 3/mcL Normal 0.2-1.0 [facility] ([place] Comment on above: Performed By: #### A MD MYRONW, ALC, CBC, BMP, ADIFF, GFR #### [address] [address] Monocytes/100 WBC (Bld) 8.8 % Normal 1.7-13.0 A [facility] ([place]) Comment on above: Performed By: #### A MD MYRONW, ALC, CBC, BMP, ADIFF, GFR #### [address] [address] Neutrophils/100 WBC (Bld) 75.4 % Normal 37.0-80.0 [facility] ([place]) Comment on above: Performed By: #### A SARI SANCHES, ALC, CBC, BMP, ADIFF, GFR #### [address] [address] .GFRon 02-10-2023 GFR 89 ml/min/1.73sqm Normal [facility] ([place]) Comment on above: Result Comment: GFR Population [...] DIFF, CBC, GFR, BMP, SARI HENDRIX #### [address] [address] GFR Non- 74 ml/min/1.73sqm Normal [facility] ([place]) Comment on above: Result Comment: GFR Population [...] DIFF, CBC, GFR, BMP, SARI HENDRIX #### [address] [address] .MDWon 02-10-2023 Monocyte Distribution Width 15.29 Normal 0.00-20.00 [facility] ([place]) Comment on above: Result Comment: For ED adult patients suspected of sepsis, MDW<=20.0 does not rule out sepsis or risk of sepsis Performed By: #### A DIFF, CBC, GFR, BMP, ANEUMDW #### [address] [address] .NEUABSon 02-10-2023 Neutrophil, Absolute 4.2 10 3/mcL Normal 2.9-6.2 [facility] ([place] Comment on above: Performed By: #### A MYRONMDW, ALC, CBC, BMP, ADIFF, GFR #### [place] [address] [place]ell 02-10-2023 Ethanol Level <3 Normal 0-3 [facility] ([place]) Comment on above: Performed By: #### A DIFF, CBC, GFR, BMP, SARI HENDRIX #### [address] [address] BMPon 02-10-2023 BUN/Creatinine Ratio 9 ratio Normal 7-27 [facility] ([place] Comment on above: Performed By: #### A DIFF, CBC, GFR, BMP, SARI HENDRIX #### [address] [address] Calcium [Mass/Vol] 9.5 mg/dL Normal 8.4-10.2 [facility] ([place]) Comment on above: Performed By: #### A DIFF, CBC, GFR, BMP, SARI HENDRIX #### [address] [address] Chloride [Moles/Vol] 101 mmol/L Normal 98-107 [facility] ([place] Comment on above: Performed By: #### A DIFF, CBC, GFR, BMP, SARI HENDRIX #### [address] [address] CO2 [Moles/Vol] 30 mmol/L Normal 23-31 [facility] ([place]) Comment on above: Performed By: #### A DIFF, CBC, GFR, BMP, SARI HENDRIX #### [address] [address] Creatinine [Mass/Vol] 1.02 mg/dL Normal 0.70-1.30 [facility] ([place]) Comment on above: Performed By: #### A DIFF, CBC, GFR, BMP, SARI HENDRIX #### [address] [address] Electrolyte Balance 11.0 mEq/L Normal 4.0-15.0 [facility] ([place] Comment on above: Performed By: #### A DIFF, CBC, GFR, BMP, SARI HENDRIX #### [address] [address] Glucose [Mass/Vol] 103 mg/dL Normal 80-115 [facility] ([place]) Comment on above: Performed By: #### A DIFF, CBC, GFR, BMP, SARI HENDRIX #### [address] [address] Potassium [Moles/Vol] 4.2 mmol/L Normal 3.5-5.1 [facility] ([place]) Comment on above: Performed By: #### A DIFF, CBC, GFR, BMP, SARI HENDRIX #### [address] [address] Sodium [Moles/Vol] 142 mmol/L Normal 136-145 [facility] ([place]) Comment on above: Performed By: #### A DIFF, CBC, GFR, BMP, SARI HENDRIX #### [address] [address] Urea nitrogen [Mass/Vol] 9 mg/dL Normal 7-18 [facility] ([place]) Comment on above: Performed By: #### A DIFF, CBC, GFR, BMP, SARI HENDRIX #### [address] [place] [address] CBCon 02-10-2023 Erythrocyte distribution width (RBC) [Ratio] 14.5 % Normal 11.5-14.5 [facility] ([place]) Comment on above: Performed By: #### A SARI SANCHES, ALC, CBC, BMP, ADIFF, GFR #### [address] [address] Hematocrit (Bld) [Volume fraction] 40.9 % Low 42.0-52.0 [facility] ([place] Comment on above: Performed By: #### A SARI SANCHES, ALC, CBC, BMP, ADIFF, GFR #### [place] [address] Hgb 13.9 G/dL Low 14.0-18.0 [facility] ([place] Comment on above: Performed By: #### A SARI SANCHES, ALC, CBC, BMP, ADIFF, GFR #### [address] [address] MCH (RBC) [Entitic mass] 32.5 pg High 27.0-31.2 [facility] ([place]) Comment on above: Performed By: #### A SARI SANCHES, STEFANI, CBC, BMP, ADIFF, GFR #### [address] [address] MCHC 34.1 G/dL Normal 31.8-35.4 [facility] ([place] Comment on above: Performed By: #### A SARI SANCHES, ALC, CBC, BMP, ADIFF, GFR #### [address] [address] MCV (RBC) [Entitic vol] 95.3 fL High 80.0-94.0 A [facility] ([place] Comment on above: Performed By: #### A SARI SANCHES, ALC, CBC, BMP, ADIFF, GFR #### [address] [address] Platelet 212 10 3/mcL Normal 130-400 [facility] ([place]) Comment on above: Performed By: #### A SARI SANCHES, ALC, CBC, BMP, ADIFF, GFR #### [address] [address] Platelet mean volume (Bld) [Entitic vol] 9.4 fL Normal 7.4-10.4 [facility] ([place] Comment on above: Performed By: #### A SARI SANCHES, ALC, CBC, BMP, ADIFF, GFR #### [address] [address] RBC 4.29 10 6/mcL Normal 4.04-6.13 [facility] ([place] Comment on above: Performed By: #### A SARI SANCHES, ALC, CBC, BMP, ADIFF, GFR #### [address] [address] WBC 5.5 10 3/mcL Normal 4.6-10.8 [facility] ([place] Comment on above: Performed By: #### A SARI SANCHES, ALC, CBC, BMP, ADIFF, GFR #### [address] [address] [id number] 02-10-2023 SARS-CoV-2 (COVID-19) RNA JENNIFER+probe Ql (Unsp spec) Negative Normal Negative [facility] ([place]) Comment on above: Performed By: #### A SARI SANCHES, ALC, CBC, BMP, ADIFF, GFR #### [address] [address] SARS-CoV-2 (COVID-19) RNA JENNIFER+probe Ql (Unsp spec) Normal [facility] ([place] Comment on above: Result Comment: Nega tive [...] ALC, CBC, BMP, ADIFF, GFR #### [address] [place], [place] [address] LABORATORYOrdered By: Radha Romero on 02-10-2023 Amphetamines [...] SS UAon 02-10-2023 Color (U) Yellow Normal [facility] ([place] Comment on above: Performed By: #### A SARI SANCHES, ALC, CBC, BMP, ADIFF, GFR #### [address] [address] Glucose (U) [Mass/Vol] Negative Normal Negative [facility] ([place] Comment on above: Performed By: #### A SARI SANCHES, ALC, CBC, BMP, ADIFF, GFR #### [address] [address] Ketones Ql (U) Negative Normal Negative [facility] ([place]) Comment on above: Performed By: #### A SARI SANCHES, ALC, CBC, BMP, ADIFF, GFR #### [address] [address] UA Appear Clear Normal Clear [facility] ([place] Comment on above: Performed By: #### A SARI SANCHES, ALC, CBC, BMP, ADIFF, GFR #### [address] [address] UA Blood Negative Normal Negative [facility] ([place]) Comment on above: Performed By: #### A SARI SANCHES, ALC, CBC, BMP, ADIFF, GFR #### [address] [address] UA Leuk Est Negative Normal Negative [facility] ([place]) Comment on above: Performed By: #### A SARI SANCHES, ALC, CBC, BMP, ADIFF, GFR #### [address] [address] UA Nitrite Negative Normal Negative [facility] ([place]) Comment on above: Performed By: #### A SARI SANCHES, ALC, CBC, BMP, ADIFF, GFR #### [address] [address] UA pH 7.0 Normal 5.0 - 8.0 [facility] [facility] ([place] Comment on above: Performed By: #### A SARI SANCHES, ALC, CBC, BMP, ADIFF, GFR #### [address] [address] UA Protein Negative Normal Negative [facility] ([place] Comment on above: Performed By: #### A SARI SANCHES, ALC, CBC, BMP, ADIFF, GFR #### [address] [address] UA Spec Grav 1.015 Normal 1.015-1.025 [facility] ([place] Comment on above: Performed By: #### A SARI SANCHES, ALC, CBC, BMP, ADIFF, GFR #### [address] [address] UA Specimen Type Clean Catch Normal [facility] ([place] Comment on above: Performed By: #### A SARI SANCHES, ALC, CBC, BMP, ADIFF, GFR #### [address] [address] UA Urobilinogen 0.2 E.U./dL Normal 0.2-1.0 [facility] ([place] Comment on above: Performed By: #### A SARI SANCHES, ALC, CBC, BMP, ADIFF, GFR #### [address] [address] Urobilinogen (U) [Mass/Vol] Negative Normal Negative [facility] ([place] Comment on above: Performed By: #### A SARI SANCHES, ALC, CBC, BMP, ADIFF, GFR #### [place] [address] UDRUGon 02-10-2023 Amphetamine (u) Negative Normal Negative [facility] ([place] Comment on above: Performed By: #### A SARI SANCHES, STEFANI, CBC, BMP, ADIFF, GFR #### [place] [address] Barbiturate (u) Negative Normal Negative [facility] ([place] Comment on above: Performed By: #### A SARI SANCHES, ALC, CBC, BMP, ADIFF, GFR #### [address] [address] Benzodiazepine (u) Negative Normal Negative [facility] ([place]) Comment on above: Performed By: #### A SARI SANCHES, ALC, CBC, BMP, ADIFF, GFR #### [address] [address] Cannabinoid (u) Negative Normal Negative [facility] [place] Comment on above: Performed By: #### A SARI SANCHES, ALC, CBC, BMP, ADIFF, GFR #### [address] [address] Cocaine Ql (U) Negative Normal Negative [facility] [place] Comment on above: Performed By: #### A SARI SANCHES, ALC, CBC, BMP, ADIFF, GFR #### [address] [address] Methadone Ql (U) Negative Normal Negative [facility] [place] Comment on above: Performed By: #### A SARI SANCHES, ALC, CBC, BMP, ADIFF, GFR #### [place] [id number] [place], [place] [address] Opiate (u) Negative Normal Negative [facility] [place] Comment on above: Performed By: #### A SARI SANCHES, ALC, CBC, BMP, ADIFF, GFR #### [place] [address] [place], [place] [address] PCP (u) Negative Normal Negative [facility] [place] Comment on above: Performed By: #### A SARI SANCHES, ALC, CBC, BMP, ADIFF, GFR #### [place] [address] [place], [place] [address] Urine Drugs screened: See Below Normal [facility] ([place]) Comment on above: Result Comment: This drug [...] SANCHES, ALC, CBC, BMP, ADIFF, GFR #### [address] [address] XR HIP LEFT W/PELVIS 4 VIEWS on [...] 09/22/2022 9:59:47 PM Ordering Provider: JENNIFER Marrero [facility]) .Auto Diffon 09-16-2022 Basophil, Absolute 0.0 10 3/mcL Normal 0.0-0.2 [facility] ([place] Comment [place] above: Performed By: #### A DIFF, CBC, GFR, BMP, ANEU, W #### [address] [address] Basophils/100 WBC (Bld) 0.6 % Normal 0.0-2.5 A [facility] ([place] Comment on above: Performed By: #### A DIFF, CBC, GFR, BMP, ANEUSARI #### [address] [address] Eosinophil, Absolute 0.0 10 3/mcL Normal 0.0-0.4 [facility] ([place] Comment on above: Performed By: #### A DIFF, CBC, GFR, BMP, ANEUSARI #### [address] [address] Eosinophils/100 WBC (Bld) 0.8 % Normal 0.0-7.0 [facility] ([place] Comment on above: Performed By: #### A DIFF, CBC, GFR, BMP, ANEU, W #### [address] [address] Lymphocyte, Absolute 0.8 10 3/mcL Normal 0.8-3.9 [facility] ([place] Comment on above: Performed By: #### A DIFF, CBC, GFR, BMP, ANEUMDW #### [address] [address] Lymphocytes/100 WBC (Bld) 14.2 % Normal 10.0-50.0 [facility] [place] Comment on above: Performed By: #### A DIFF, CBC, GFR, BMP, ANEU, W #### [address] [address] Monocyte, Absolute 0.5 10 3/mcL Normal 0.2-1.0 [facility] ([place] Comment on above: Performed By: #### A DIFF, CBC, GFR, BMP, SARI HENDRIX #### [address] [address] Monocytes/100 WBC (Bld) 8.4 % Normal 1.7-13.0 A [facility] ([place] Comment [place] above: Performed By: #### A DIFF, CBC, GFR, BMP, SARI HENDRIX #### [address] [address] Neutrophils/100 WBC (Bld) 76.0 % Normal 37.0-80.0 [facility] ([place] Comment on above: Performed By: #### A DIFF, CBC, GFR, BMP, SARI HENDRIX #### [address] [address] .GFRon 09-16-2022 GFR Non- 63 ml/min/1.73sqm Normal [facility] ([place] Comment on above: Result Comment: GFR Population [...] DIFF, CBC, GFR, BMP, SARI HENDRIX #### [address] [address] GFR 76 ml/min/1.73sqm Normal [facility] ([place] Comment on above: Result Comment: GFR Population [...] DIFF, CBC, GFR, BMP, ANEU, MDGifty #### [address] [address] .MDWon 09-16-2022 Monocyte Distribution Width 15.65 Normal 0.00-20.00 [facility] ([place] Comment on above: Result Comment: For ED adult patients suspected of sepsis, MDW<=20.0 does not rule out sepsis or risk of sepsis Performed By: #### A DIFF, CBC, GFR, BMP, ANEUSARI #### [address] [address] .NEUABSon 09-16-2022 Neutrophil, Absolute 4.3 10 3/mcL Normal 2.9-6.2 [facility] [place] Comment [place] above: Performed By: #### A DIFF, CBC, GFR, BMP, ANEU, SARI #### [address] [address] Martell 09-16-2022 Ethanol Level <3 Normal 0-3 [facility] [place] Comment on above: Performed By: #### A DIFF, CBC, GFR, BMP, ANEUSARI #### [address] [address] BMPon 09-16-2022 BUN/Creatinine Ratio 8 ratio Normal 7-27 [facility] [place] Comment [place] above: Performed By: #### A DIFF, CBC, GFR, BMP, ANEUSARI #### [address] [address] Calcium [Mass/Vol] 9.2 mg/dL Normal 8.4-10.2 [facility] ([place]) Comment on above: Performed By: #### A DIFF, CBC, GFR, BMP, SARI HENDRIX #### [address] [address] Chloride [Moles/Vol] 102 mmol/L Normal 98-107 [facility] [place] Comment on above: Performed By: #### A DIFF, CBC, GFR, BMP, SARI HENDRIX #### [address] [address] CO2 [Moles/Vol] 34 mmol/L High 23-31 [facility] ([place] Comment on above: Performed By: #### A DIFF, CBC, GFR, BMP, SARI HENDRIX #### [address] [address] Creatinine [Mass/Vol] 1.17 mg/dL Normal 0.70-1.30 [facility] ([place] Comment on above: Performed By: #### A DIFF, CBC, GFR, BMP, SARI HENDRIX #### [address] [address] Electrolyte Balance 7.0 mEq/L Normal 4.0-15.0 [facility] ([place] Comment on above: Performed By: #### A DIFF, CBC, GFR, BMP, SARI HENDRIX #### [address] [address] Glucose [Mass/Vol] 113 mg/dL Normal 80-115 [facility] ([place] Comment on above: Performed By: #### A DIFF, CBC, GFR, BMP, SARI HENDRIX #### [address] [address] Potassium [Moles/Vol] 4.0 mmol/L Normal 3.5-5.1 [facility] ([place] Comment on above: Performed By: #### A DIFF, CBC, GFR, BMP, SARI HENDRIX #### [address] [address] Sodium [Moles/Vol] 143 mmol/L Normal 136-145 [facility] ([place] Comment on above: Performed By: #### A DIFF, CBC, GFR, BMP, MD SIMEONW #### [address] [address] Urea nitrogen [Mass/Vol] 9 mg/dL Normal 7-18 [facility] ([place] Comment on above: Performed By: #### A DIFF, CBC, GFR, BMP, MD SIMEONW #### [place] [id number] CBCon 09-16-2022 Erythrocyte distribution width (RBC) [Ratio] 13.4 % Normal 11.5-14.5 [facility] [place] Comment on above: Performed By: #### A DIFF, CBC, GFR, BMP, SARI HENDRIX #### [place] [id number] Hematocrit (Bld) [Volume fraction] 40.8 % Low 42.0-52.0 [facility] [place] Comment on above: Performed By: #### A DIFF, CBC, GFR, BMP, SARI HENDRIX #### [place] [address] Hgb 14.1 G/dL Normal 14.0-18.0 [facility] [place] Comment on above: Performed By: #### A DIFF, CBC, GFR, BMP, MD SIMEONW #### [address] [address] MCH (RBC) [Entitic mass] 33.0 pg High 27.0-31.2 [facility] [place] Comment on above: Performed By: #### A DIFF, CBC, GFR, BMP, MD SIMEONW #### [place] [address] MCHC 34.4 G/dL Normal 31.8-35.4 [facility] [place] Comment on above: Performed By: #### A DIFF, CBC, GFR, BMP, ANEU, MDW #### [place] [id number] MCV (RBC) [Entitic vol] 95.9 fL High 80.0-94.0 A [facility] ([place] Comment [place] above: Performed By: #### A DIFF, CBC, GFR, BMP, SARI HENDRIX #### [address] [address] Platelet 200 10 3/mcL Normal 130-400 [facility] ([place] Comment on above: Performed By: #### A DIFF, CBC, GFR, BMP, SARI HENDRIX #### [address] [address] Platelet mean volume (Bld) [Entitic vol] 9.6 fL Normal 7.4-10.4 [facility] [place] Comment on above: Performed By: #### A DIFF, CBC, GFR, BMP, SARI HENDRIX #### [address] [address] RBC 4.25 10 6/mcL Normal 4.04-6.13 [facility] ([place] Comment on above: Performed By: #### A DIFF, CBC, GFR, BMP, SARI HENDRIX #### [address] [address] WBC 5.6 10 3/mcL Normal 4.6-10.8 [facility] [place] Comment on above: Performed By: #### A DIFF, CBC, GFR, NANCI, ASRI HENDRIX #### [address] [address] CKon 09-16-2022 CK [Catalytic activity/Vol] 122 U/L Normal 39-308 [facility] ([place] Comment on above: Performed By: #### A DIFF, CBC, GFR, BMP, SARI HENDRIX #### [address] [address] [id number] 09-16-2022 SARS-CoV-2 (COVID-19) RNA JENNIFER+probe Ql (Unsp spec) Negative Normal Negative [facility] [place] Comment [place] above: Performed By: #### A DIFF, CBC, GFR, BMP, SARI HENDRIX #### [place] [address] SARS-CoV-2 (COVID-19) RNA JENNIFER+probe Ql (Unsp spec) [facility] [place] Comment [place] above: Result Comment: Nega tive [...] DIFF, CBC, GFR, BMP, ANEU, W #### [address] [address] TOXSCon 09-16-2022 U Ampheta (AO) Negative [facility] ([place] Comment on above: Performed By: #### A MYRON MDW, ALC, CBC, BMP, ADIFF, GFR #### [address] [address] U Amanda (AO) Negative [facility] ([place] Comment on above: Performed By: #### A MYRON MDW, ALC, CBC, BMP, ADIFF, GFR #### [address] [address] U Kiko (AO) Negative [facility] ([place] Comment on above: Performed By: #### A MYRON, MDW, ALC, CBC, BMP, ADIFF, GFR #### [address] [address] U Cannab (AO) Negative [facility] ([place]) Comment on above: Performed By: #### A SARI SANCHES, ALC, CBC, BMP, ADIFF, GFR #### [address] [address] U Cocaine (AO) Negative [facility] ([place] Comment on above: Performed By: #### A SARI SANCHES, ALC, CBC, BMP, ADIFF, GFR #### [address] [address] U Methadone (AO) Negative [facility] ([place] Comment on above: Performed By: #### A SARI SANCHES, ALC, CBC, BMP, ADIFF, GFR #### [address] [address] U PCP (AO) Positive [facility] ([place] Comment on above: Performed By: #### A SARI SANCHES, ALC, CBC, BMP, ADIFF, GFR #### [address] [address] U TCA (AO) Negative [facility] ([place] Comment on above: Performed By: #### A SARI SANCHES, ALC, CBC, BMP, ADIFF, GFR #### [address] [address] Urine Opiates (AO) [facility] [place]: Performed By: #### A SARI SANCHES, ALC, CBC, BMP, ADIFF, GFR #### [address] [address] .Auto Diffon 08-23-2022 Basophil, Absolute 0.0 10 3/mcL Normal 0.0-0.2 [facility] [place] Comment [place] above: Performed By: #### A DIFF, CBC, GFR, NANCI, SARI HENDRIX #### [address] [address] Basophils/100 WBC (Bld) 0.4 % Normal 0.0-2.5 A [facility] ([place] Comment [place] above: Performed By: #### A DIFF, CBC, GFR, NANCI, SARI HENDRIX #### [address] [address] Eosinophil, Absolute 0.1 10 3/mcL Normal 0.0-0.4 [facility] [place] Comment [place] above: Performed By: #### A DIFF, CBC, GFR, BMP, ANEU, W #### [address] [address] Eosinophils/100 WBC (Bld) 1.5 % Normal 0.0-7.0 [facility] ([place] Comment on above: Performed By: #### A DIFF, CBC, GFR, BMP, ANEUMDW #### [address] [address] Lymphocyte, Absolute 1.1 10 3/mcL Normal 0.8-3.9 [facility] ([place] Comment on above: Performed By: #### A DIFF, CBC, GFR, BMP, ANEUSARI #### [address] [address] Lymphocytes/100 WBC (Bld) 16.1 % Normal 10.0-50.0 [facility] [place] Comment on above: Performed By: #### A DIFF, CBC, GFR, BMP, SARI HENDRIX #### [address] [address] Monocyte, Absolute 0.6 10 3/mcL Normal 0.2-1.0 [facility] [place] Comment [place] above: Performed By: #### A DIFF, CBC, GFR, BMP, SARI HENDRIX #### [address] [address] Monocytes/100 WBC (Bld) 8.6 % Normal 1.7-13.0 [facility] ([place] Comment on above: Performed By: #### A DIFF, CBC, GFR, BMP, ANEUSARI #### [address] [address] Neutrophils/100 WBC (Bld) 73.4 % Normal 37.0-80.0 [facility] ([place] Comment on above: Performed By: #### A DIFF, CBC, GFR, BMP, ANEUSARI #### [address] [address] .GFRon 08-23-2022 GFR 81 ml/min/1.73sqm Normal [facility] ([place] Comment on above: Result Comment: GFR Population [...] A DIFF, CBC, GFR, BMPSIMEON MDW #### [address] [address] GFR Non- 67 ml/min/1.73sqm Normal [facility] ([place] Comment on above: Result Comment: GFR Population [...] DIFF, CBC, GFR, SIMEON CHRISTINE MDW #### [address] [address] .MDWon 08-23-2022 Monocyte Distribution Width 17.76 Normal 0.00-20.00 [facility] [place] Comment on above: Result Comment: For ED adult patients suspected of sepsis, MDW<=20.0 does not rule out sepsis or risk of sepsis Performed By: #### A DIFF, CBC, GFR, BMPSIMEON MDW #### [place] [id number] .NEUABSon 08-23-2022 Neutrophil, Absolute 5.1 10 3/mcL Normal 2.9-6.2 [facility] ([place] Comment [place] above: Performed By: #### A DIFF, CBC, GFR, BMP, SARI HENDRIX #### [place] [address] ACETAon 08-23-2022 Acetaminophen [Mass/Vol] 0.0 ug/mL Low 10.0-30.0 [facility] [place] Comment [place] above: Performed By: #### A DIFF, CBC, GFR, BMP, SARI HENDRIX #### [place] [address] Martell 08-23-2022 Ethanol Level <3 Normal 0-3 [facility] [place] Comment [place] above: Performed By: #### A DIFF, CBC, GFR, SIMEON CHRISTINE MDW #### [place] [address] CBCon 08-23-2022 Erythrocyte distribution width (RBC) [Ratio] 13.4 % Normal 11.5-14.5 [facility] [place] Comment [place] above: Performed By: #### A DIFF, CBC, GFR, BMP, SARI HENDRIX #### [place] [address] Hematocrit (Bld) [Volume fraction] 39.5 % Low 42.0-52.0 [facility] [place] Comment on above: Performed By: #### A DIFF, CBC, GFR, BMPSIMEON MDW #### [place] [address] Hgb 14.0 G/dL Normal 14.0-18.0 [facility] ([place] Comment [place] above: Performed By: #### A DIFF, CBC, GFR, BMPSIMEON MDW #### [address] [address] MCH (RBC) [Entitic mass] 33.9 pg High 27.0-31.2 [facility] ([place] Comment on above: Performed By: #### A DIFF, CBC, GFR, BMP, ANEUMDW #### [address] [address] MCHC 35.5 G/dL High 31.8-35.4 [facility] ([place] Comment on above: Performed By: #### A DIFF, CBC, GFR, BMP, ANEU, W #### [address] [address] MCV (RBC) [Entitic vol] 95.6 fL High 80.0-94.0 A [facility] ([place] Comment [place] above: Performed By: #### A DIFF, CBC, GFR, BMP, SARI HENDRIX #### [address] [address] Platelet 166 10 3/mcL Normal 130-400 [facility] ([place] Comment on above: Performed By: #### A DIFF, CBC, GFR, BMP, SARI HENDRIX #### [address] [address] Platelet mean volume (Bld) [Entitic vol] 9.0 fL Normal 7.4-10.4 [facility] ([place] Comment on above: Performed By: #### A DIFF, CBC, GFR, BMP, ANEUMDW #### [address] [address] RBC 4.13 10 6/mcL Normal 4.04-6.13 [facility] ([place] Comment on above: Performed By: #### A DIFF, CBC, GFR, BMP, ANEUSARI #### [address] [address] WBC 6.9 10 3/mcL Normal 4.6-10.8 [facility] ([place] Comment on above: Performed By: #### A DIFF, CBC, GFR, BMP, ANEUSARI #### [address] [address] CMPon 08-23-2022 Albumin Level 3.7 G/dL Normal 3.4-4.8 [facility] ([place] Comment on above: Performed By: #### A DIFF, CBC, GFR, BMP, SARI HENDRIX #### [address] [address] Albumin/Globulin [Mass ratio] 1.2 {ratio} Normal 1.1-2.5 [facility] ([place] Comment on above: Performed By: #### A DIFF, CBC, GFR, NANCI, SARI HENDRIX #### [address] [address] ALP [Catalytic activity/Vol] 80 U/L Normal 40-135 [facility] ([place] Comment on above: Performed By: #### A DIFF, CBC, GFR, BMP, SARI HENDRIX #### [address] [address] ALT [Catalytic activity/Vol] 25 U/L Normal 16-63 [facility] ([place] Comment on above: Performed By: #### A DIFF, CBC, GFR, NANCI, SARI HENDRIX #### [address] [address] AST [Catalytic activity/Vol] 19 U/L Normal 10-40 [facility] ([place] Comment on above: Performed By: #### A DIFF, CBC, GFR, BMP, SARI HENDRIX #### [address] [address] Bili Total 1.0 mg/dL Normal 0.2-1.0 [facility] ([place] Comment on above: Result Comment: Use of this assay is not recommended for patients undergoing treatment with eltrombopag due to the potential for falsely elevated results. Performed By: #### A DIFF, CBC, GFR, BMP, SARI HENDRIX #### [address] [address] BUN/Creatinine Ratio 11 ratio Normal 7-27 [facility] ([place] Comment on above: Performed By: #### A DIFF, CBC, GFR, BMP, SARI HENDRIX #### [address] [address] Calcium [Mass/Vol] 9.2 mg/dL Normal 8.4-10.2 [facility] ([place]) Comment on above: Performed By: #### A DIFF, CBC, GFR, BMP, SARI HENDRIX #### [place] [address] Chloride [Moles/Vol] 102 mmol/L Normal 98-107 [facility] ([place] Comment on above: Performed By: #### A DIFF, CBC, GFR, BMP, SARI HENDRIX #### [place] [address] CO2 [Moles/Vol] 32 mmol/L High 23-31 [facility] ([place] Comment on above: Performed By: #### A DIFF, CBC, GFR, BMP, SARI HENDRIX #### [address] [address] Creatinine [Mass/Vol] 1.11 mg/dL Normal 0.70-1.30 [facility] ([place]) Comment on above: Performed By: #### A DIFF, CBC, GFR, BMP, SARI HEDNRIX #### [address] [address] Electrolyte Balance 7.0 mEq/L Normal 4.0-15.0 [facility] ([place] Comment on above: Performed By: #### A DIFF, CBC, GFR, BMP, SARI HENDRIX #### [address] [address] Globulin 3.1 G/dL Normal [facility] ([place] Comment on above: Performed By: #### A DIFF, CBC, GFR, BMP, SARI HENDRIX #### [address] [address] Glucose [Mass/Vol] 115 mg/dL Normal 80-115 [facility] ([place] Comment on above: Performed By: #### A DIFF, CBC, GFR, BMP, SARI HENDRIX #### [address] [address] Potassium [Moles/Vol] 3.9 mmol/L Normal 3.5-5.1 [facility] ([place] Comment on above: Performed By: #### A DIFF, CBC, GFR, BMP, ANEU, SARI #### [address] [address] Sodium [Moles/Vol] 141 mmol/L Normal 136-145 [facility] ([place] Comment on above: Performed By: #### A DIFF, CBC, GFR, BMP, ANEU, W #### [address] [address] Total Protein 6.8 G/dL Normal 6.4-8.2 [facility]) Comment on above: Performed By: #### A DIFF, CBC, GFR, BMP, SARI HENDRIX #### [address] [address] Urea nitrogen [Mass/Vol] 12 mg/dL Normal 7-18 [facility]) Comment on above: Performed By: #### A DIFF, CBC, GFR, BMP, SARI HENDRIX #### [address] [address] [id number] 08-23-2022 SARS-CoV-2 (COVID-19) RNA JENNIFER+probe Ql (Unsp spec) Negative Normal Negative [facility]) Comment on above: Performed By: #### A SARI SANCHES, ALC, CBC, BMP, ADIFF, GFR #### [address] [address] SARS-CoV-2 (COVID-19) RNA JENNIFER+probe Ql (Unsp spec) Normal [facility] ([place] Comment on above: Result Comment: Nega tive [...] ALC, CBC, BMP, ADIFF, GFR #### [address] [place] [address] [place] [id number] LABORATORYOrdered By: Victoriano Malin on 08-23-2022 Acetaminophen [...] SALon 08-23-2022 Salicylate Level <0.2 Low 2.8-20.0 [facility] ([place] Comment on above: Performed By: #### A DIFF, CBC, GFR, BMP, ANEU, MDW #### [address] [address] TOXSCon 08-23-2022 U Ampheta (AO) Negative [facility] ([place] Comment on above: Performed By: #### T OXSC #### [address] [address] U Amanda (AO) Negative [facility] ([place] Comment on above: Performed By: #### T OXSC #### [address] [address] [address] U Kiko (AO) Positive [facility] ([place] Comment on above: Performed By: #### T OXSC #### [place] [address] [address] U Cannab (AO) Negative [facility] ([place] Comment on above: Performed By: #### T OXSC #### [address] [address] [address] U Cocaine (AO) Negative [facility] ([place] Comment on above: Performed By: #### T OXSC #### [address] [address] [address] U Methadone (AO) Negative [facility] ([place] Comment on above: Performed By: #### T OXSC #### [place] [address] [address] U PCP (AO) Negative [facility] ([place] Comment on above: Performed By: #### T OXSC #### [address] [address] U TCA (AO) Negative [facility] ([place] Comment on above: Performed By: #### T OXSC #### [place] [address] Urine Opiates ([place]) Negative [facility] [place] Comment on [place]: Performed By: #### T OXSC #### [place] [address] [address] Vital Signs Date Time Vital Sign Value Performing Clinician Facility 12-18-2024 11:39-0400 Body temperature 97.9 [degF] Katelyn Kamara 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 Phone: [facility] 12-18-2024 11:39-0400 Diastolic blood pressure 76 mm[Hg] Katelyn Kamara 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 Phone: [facility] 12-18-2024 11:39-0400 Heart rate 72 /min Katelyn Kamara 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 Phone: [facility] 12-18-2024 11:39-0400 Respiratory rate 13 /min Katelyn Kamara 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 Phone: [phone] [place] [address] 12-18-2024 11:39-0400 SaO2% (BldA) [Mass fraction] 100 % Katelyn Kamara 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 Phone: [phone] [place] [address] 12-18-2024 11:39-0400 Systolic blood pressure 118 mm[Hg] Katelyn Kamara 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 Phone: [phone] [place] [address] 12-18-2024 10:25-0400 Body height 177.8 cm Katelyn Kamara 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 Phone: [phone] [place] [address] 12-18-2024 10:25-0400 Body mass index (BMI) [Ratio] 21.8 kg/m2 Katelyn Kamara 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 Phone: [phone] [place] [address] 12-18-2024 10:25-0400 Body weight 69.1 kg Katelyn Kamara 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 Phone: [phone] [place] [address] 11-22-2024 13:49-0400 Body temperature 97.6 [degF] Katelyn Kamara 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 Phone: [facility] 11-22-2024 13:49-0400 Diastolic blood pressure 81 mm[Hg] Katelyn Kamara 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 Phone: [facility] 11-22-2024 13:49-0400 Heart rate 78 /min Katelyn Kamara 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 Phone: [phone] [place] [address] 11-22-2024 13:49-0400 Respiratory rate 16 /min Katelyn Kamara 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 Phone: 7(386)[phone] [place] [address] 11-22-2024 13:49-0400 SaO2% (BldA) [Mass fraction] 100 % Katelyn Kamara 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 Phone: 4(592)[phone] [place] [address] 11-22-2024 13:49-0400 Systolic blood pressure 115 mm[Hg] Katelyn Kamara 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 Phone: [phone] [place] [address] 11-22-2024 11:59-0400 Body height 177.8 cm Katelyn Kamara 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 Phone: 7(013)[phone] [place] [address] 11-22-2024 11:59-0400 Body mass index (BMI) [Ratio] 21 kg/m2 Katelyn Kamara 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 Phone: [phone] [place] [address] 11-22-2024 11:59-0400 Body weight 66.5 kg Katelyn Kamara 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 Phone: [phone])[phone] [place] [address] 10-14-2024 10:26-0400 Body height 177.8 cm Katelyn Kamara 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 Phone: [phone] [place] [address] 10-14-2024 10:26-0400 Body mass index (BMI) [Ratio] 21.3 kg/m2 Katelyn Kamara TELEVISION 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 Phone: [phone] [place] [address] 10-14-2024 10:26-0400 Body temperature 93 [degF] Katelyn Kamara TELEVISION 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 Phone: [phone])[phone] [place] [address] 10-14-2024 10:26-0400 Body weight 67.35 kg Katelyn Kamara TELEVISION 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 Phone: [phone] [place] [address] 10-14-2024 10:26-0400 Diastolic blood pressure 66 mm[Hg] Katelyn Kamara TELEVISION 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 Phone: [phone] [place] [address] 10-14-2024 10:26-0400 Heart rate 96 /min Katelyn Kamara TELEVISION 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 Phone: [phone] [place] [address] 10-14-2024 10:26-0400 Respiratory rate 16 /min Katelyn Kamara TELEVISION 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 Phone: [phone] [place] [address] 08-18-2025 10:26-0400 SaO2% (BldA) [Mass fraction] 93 % Katelyn Asad TELEVISION 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 Phone: [facility] 10-14-2024 10:26-0400 Systolic blood pressure 98 mm[Hg] Katelyn Asad TELEVISION 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 Phone: [facility] 07-21-2023 00:26-0400 Heart rate 78 /min YEVGENIY TAYKA DO [facility] 07-21-2023 00:26-0400 Respiratory rate 16 /min YEVGENIY MAGGILATASHA DO [facility] 07-20-2023 22:25-0400 Blood Pressure Cuff Size YEVGENIY MAGGIKA DO [facility] 07-20-2023 22:25-0400 Blood Pressure Location YEVGENIY MAGGILATASHA DO [facility] 07-20-2023 22:25-0400 Blood Pressure Method YEVGENIY MAGGIKA DO [facility] 07-20-2023 22:25-0400 Body height 177.8 cm YEVGENIY TAYKA DO [facility] 07-20-2023 22:25-0400 Body temperature 98.42 [degF] YEVGENIY LESLIEESKA DO [facility] 07-20-2023 22:25-0400 Body weight 61.4 kg YEVGENIY NELSONESKA DO [facility] 07-20-2023 22:25-0400 Diastolic Blood Pressure Non-Invasive 68 mm[Hg] YEVGENIY LESLIEESKA DO [facility] 07-20-2023 22:25-0400 Heart rate 94 /min YEVGENIY LESLIEESKA DO [facility] 07-20-2023 22:25-0400 Reason For Taking VItal Signs YEVGENIY QUINTEROS DO [facility] 07-20-2023 22:25-0400 Respiratory rate 16 /min YEVGENIY QUINTEROS DO [facility] 07-20-2023 22:25-0400 Systolic Blood Pressure Non-Invasive 103 mm[Hg] YEVGENIY LESLIEALAN DO [facility] 07-18-2023 00:06-0400 Diastolic Blood Pressure Non-Invasive 83 mm[Hg] MARLENE GIFFORD MD [facility] 07-18-2023 00:06-0400 Heart rate 78 /min MARLENE GIFFORD MD [facility] 07-18-2023 00:06-0400 Reason For Taking VItal Signs MARLENE GIFFORD MD [facility] 07-18-2023 00:06-0400 Respiratory rate 16 /min MARLENE GIFFORD MD [facility] 07-18-2023 00:06-0400 Systolic Blood Pressure Non-Invasive 122 mm[Hg] MARLENE GIFFORD MD [facility] 07-17-2023 21:11-0400 Blood Pressure Location MARLENE GIFFORD MD [facility] 07-17-2023 21:11-0400 Blood Pressure Method MARLENE GIFFORD MD [facility] 07-17-2023 21:11-0400 Body height 177.8 cm MARLENE GIFFORD MD [facility] 07-17-2023 21:11-0400 Body temperature 99.32 [degF] MARLENE GIFFORD MD [facility] 07-17-2023 21:11-0400 Body weight 61.4 kg MARLENE GIFFORD MD [facility] 07-17-2023 21:11-0400 Diastolic Blood Pressure Non-Invasive 62 mm[Hg] MARLENE GIFFORD MD [facility] 07-17-2023 21:11-0400 Heart rate 108 /min MARLENE GIFFORD MD [facility] 07-17-2023 21:11-0400 Respiratory rate 16 /min MARLENE GIFFORD MD [facility] 07-17-2023 21:11-0400 Systolic Blood Pressure Non-Invasive 91 mm[Hg] MARLENE GIFFORD MD [facility] 06-12-2023 22:10-04[address] Cuff Size DR ASHLEY MIXON MD [facility] 06-12-2023 22:10-[address] ASHLEY MIXON MD [facility] 06-12-2023 22:10-[address] ASHLEY MIXON MD [facility] 06-12-2023 22:10-0400 Diastolic Blood Pressure Non-Invasive 69 mm[Hg] DR ASHLEY MIXON MD [facility] 06-12-2023 22:10-0400 Heart rate 71 /min DR ASHLEY MIXON MD [facility] 06-12-2023 22:10-0400 Respiratory rate 18 /min DR ASHLEY MIXON MD [facility] 06-12-2023 22:10-0400 Systolic Blood Pressure Non-Invasive 99 mm[Hg] DR ASHLEY MIXON MD [facility] 06-12-2023 21:45-0400 Diastolic Blood Pressure Non-Invasive 63 mm[Hg] DR ASHLEY MIXON MD [facility] 06-12-2023 21:45-0400 Heart rate 72 /min DR ASHLEY MIXON MD [facility] 06-12-2023 21:45-0400 Respiratory rate 18 /min DR ASHLEY MIXON MD [facility] 06-12-2023 21:45-0400 Systolic Blood Pressure Non-Invasive 101 mm[Hg] DR ASHLEY MIXON MD [facility] 06-12-2023 21:30-0400 Diastolic Blood Pressure Non-Invasive 71 mm[Hg] DR ASHLEY MIXON MD [facility] 06-12-2023 21:30-0400 Heart rate 71 /min DR ASHLEY MIXON MD [facility] 06-12-2023 21:30-0400 Respiratory rate 18 /min DR ASHLEY MIXON MD [facility] 06-12-2023 21:30-0400 Systolic Blood Pressure Non-Invasive 99 mm[Hg] DR ASHLEY MIXON MD [facility] 06-12-2023 20:30-0400 Reason For Taking VItal Signs DR ASHLEY MIXON MD [facility] 06-12-2023 20:15-0400 Reason For Taking VItal Signs DR ASHLEY MIXON MD [facility] 06-12-2023 19:30-0400 Reason For Taking VItal Signs DR ASHLEY MIXON MD [facility] 06-12-2023 17:31-[address] ASHLEY MIXON MD [facility] 06-12-2023 17:31-0400 Body temperature 98.6 [degF] DR ASHLEY MIXON MD [facility] 06-12-2023 17:31-0400 Body weight 57.[address] ASHLEY MIXON MD [facility] 06-12-2023 17:31-0400 Heart rate 124 /min DR ASHLEY MIXON MD [facility] 05-31-2023 14:56-0400 Diastolic Blood Pressure Non-Invasive 78 mm[Hg] FELI METZ MD [facility] 05-31-2023 14:56-0400 Heart rate 84 /min FELI METZ MD [facility] 05-31-2023 14:56-0400 Respiratory rate 15 /min FELI METZ MD [facility] 05-31-2023 14:56-0400 Systolic Blood Pressure Non-Invasive 121 mm[Hg] FELI METZ MD [facility] 05-31-2023 14:26-0400 Diastolic Blood Pressure Non-Invasive 74 mm[Hg] FELI METZ MD [facility] 05-31-2023 14:26-0400 Heart rate 73 /min FELI METZ MD [facility] 05-31-2023 14:26-0400 Reason For Taking VItal Signs FELI METZ MD [facility] 05-31-2023 14:26-0400 Respiratory rate 19 /min FELI METZ MD [facility] 05-31-2023 14:26-0400 Systolic Blood Pressure Non-Invasive 110 mm[Hg] FELI METZ MD [facility] 05-31-2023 13:13-0400 Diastolic Blood Pressure Non-Invasive 71 mm[Hg] FLEI METZ MD [facility] 05-31-2023 13:13-0400 Heart rate 75 /min FELI METZ MD [facility] 05-31-2023 13:13-0400 Respiratory rate 22 /min FELI METZ MD [facility] 05-31-2023 13:13-0400 Systolic Blood Pressure Non-Invasive 103 mm[Hg] FELI METZ MD [facility] 05-31-2023 11:00-0400 Body temperature 97.88 [degF] FELI METZ MD [facility] 05-31-2023 11:00-0400 Body weight 59.6 kg FELI METZ MD [facility] 04-18-2023 03:10-0500 Blood Pressure Location TAMIKA TORRES DO [facility] 04-18-2023 03:10-0500 Blood Pressure Method TAMIKA Serna [facility] 04-18-2023 03:10-0500 Body height 177.8 cm TAMIKA TORRES DO [facility] 04-18-2023 03:10-0500 Body temperature 98.24 [degF] TAMIKA FROMMELT DO [facility] 04-18-2023 03:10-0500 Body weight 61.4 kg TAMIKA FROMMELT DO [facility] 04-18-2023 03:10-0500 Diastolic Blood Pressure Non-Invasive 69 mm[Hg] TAMIKA FROMMELT DO [facility] 04-18-2023 03:10-0500 Heart rate 109 /min TAMIKA FROMMELT DO [facility] 04-18-2023 03:10-0500 Respiratory rate 16 /min TAMIKA FROMMELT DO [facility] 04-18-2023 03:10-0500 Systolic Blood Pressure Non-Invasive 101 mm[Hg] TAMIKA FROMMELT DO [facility] 04-17-2023 23:54-0500 Heart rate 103 /min TAMIKA FROMMELT DO [facility] 04-17-2023 23:37-0500 Blood Pressure Location TAMIKA FROMMELT DO [facility] 04-17-2023 23:37-0500 Blood Pressure Method TAMIKA FROMMELT D O [facility] 04-17-2023 23:37-0500 Body height 177.8 cm TAMIKA FROMMELT DO [facility] 04-17-2023 23:37-0500 Body temperature 96.8 [degF] TAMIKA FROMMELT DO [facility] 04-17-2023 23:37-0500 Body weight 61.4 kg TAMIKA TORRES DO [facility] 04-17-2023 23:37-0500 Diastolic Blood Pressure Non-Invasive 88 mm[Hg] TAMIKA TORRES DO [facility] 04-17-2023 23:37-0500 Respiratory rate 16 /min [facility]WORK[facility] BARRETT [facility] 04-17-2023 23:37-0500 Systolic Blood Pressure Non-Invasive 115 mm[Hg] [facility] 04-12-2023 18:54-0500 Body temperature 98.06 [degF] KATELYN SAAB MD [facility] 04-12-2023 18:54-0500 Body weight 61.4 kg KATELYN SAAB MD [facility] 04-12-2023 18:54-0500 Diastolic Blood Pressure Non-Invasive 65 mm[Hg] KATELYN SAAB MD [facility] 04-12-2023 18:54-0500 Heart rate 104 /min KATELYN SAAB MD [facility] 04-12-2023 18:54-0500 Respiratory rate 16 /min KATELYN SAAB MD [facility] 04-12-2023 18:54-0500 Systolic Blood Pressure Non-Invasive 110 mm[Hg] KATELYN SAAB MD [facility] 04-12-2023 05:06-0500 Blood Pressure Location KATELYN SAAB MD [facility] 04-12-2023 05:06-0500 Blood Pressure Method KATELYN SAAB MD [facility] 04-12-2023 05:06-0500 Body height 177.8 cm KATELYN SAAB MD [facility] 04-12-2023 05:06-0500 Body temperature 96.98 [degF] KATELYN SAAB MD [facility] 04-12-2023 05:06-0500 Body weight 56.8 kg KATELYN SAAB MD [facility] 04-12-2023 05:06-0500 Diastolic Blood Pressure Non-Invasive 69 mm[Hg] KATELYN SAAB MD [facility] 04-12-2023 05:06-0500 Heart rate 112 /min KATELYN SAAB MD [facility] 04-12-2023 05:06-0500 Respiratory rate 16 /min KATELYN SAAB MD [facility] 04-12-2023 05:06-0500 Systolic Blood Pressure Non-Invasive 99 mm[Hg] KATELYN SAAB MD [facility] 04-09-2023 03:26-0500 Body temperature 98.42 [degF] JENNIFER FRANKS MD [facility] 04-09-2023 03:26-0500 Diastolic Blood Pressure Non-Invasive 83 mm[Hg] JENNIFER FRANKS MD [facility] 04-09-2023 03:26-0500 Heart rate 108 /min JENNIFER FRANKS MD [facility] 04-09-2023 03:26-0500 Respiratory rate 18 /min JENNIFER FRANKS MD [facility] 04-09-2023 03:26-0500 Systolic Blood Pressure Non-Invasive 117 mm[Hg] JENNIFER FRANKS MD [facility] 02-22-2023 16:15-0500 Body temperature 98.24 [degF] JENNIFER FRANKS MD [facility] 02-22-2023 16:15-0500 Diastolic Blood Pressure Non-Invasive 62 mm[Hg] JENNIFER FRANKS MD [facility] 02-22-2023 16:15-0500 Heart rate 68 /min JENNIFER FRANKS MD [facility] 02-22-2023 16:15-0500 Respiratory rate 16 /min JENNIFER FRANKS MD [facility] 02-22-2023 16:15-0500 Systolic Blood Pressure Non-Invasive 124 mm[Hg] JENNIFER FRANKS MD [facility] 02-22-2023 14:06-0500 Body temperature 98.06 [degF] JENNIFER FRANKS MD [facility] 02-22-2023 14:06-0500 Diastolic Blood Pressure Non-Invasive 84 mm[Hg] JENNIFER FRANKS MD [facility] 02-22-2023 14:06-0500 Heart rate 97 /min JENNIFER FRANKS MD [facility] 02-22-2023 14:06-0500 Respiratory rate 18 /min JENNIFER FRANKS MD [facility] 02-22-2023 14:06-0500 Systolic Blood Pressure Non-Invasive 118 mm[Hg] JENNIFER FRANKS MD [facility] 02-10-2023 20:55-0500 Diastolic Blood Pressure Non-Invasive 74 mm[Hg] TAMIKA FROMMELT DO [facility] 02-10-2023 20:55-0500 Heart rate 100 /min TAMIKA FROMMELT DO [facility] 02-10-2023 20:55-0500 Respiratory rate 16 /min TAMIKA FROMMELT DO [facility] 02-10-2023 20:55-0500 Systolic Blood Pressure Non-Invasive 120 mm[Hg] TAMIKA FROMMELT DO [facility] 02-10-2023 12:50-0500 Body height 177.8 cm TAMIKA FROMMELT DO [facility] 02-10-2023 12:50-0500 Body temperature 97.88 [degF] TAMIKA FROMMELT DO [facility] 02-10-2023 12:50-0500 Body weight 59.1 kg TAMIKA FROMMELT DO [facility] 02-10-2023 12:50-0500 Diastolic Blood Pressure Non-Invasive 83 mm[Hg] TAMIKA FROMMELT DO [facility] 02-10-2023 12:50-0500 Heart rate 100 /min TAMIKA FROMMELT DO [facility] 02-10-2023 12:50-0500 Respiratory rate 16 /min TAMIKA FROMMELT DO [facility] 02-10-2023 12:50-0500 Systolic Blood Pressure Non-Invasive 129 mm[Hg] TAMIKA TORRES [facility] 08-23-2022 07:11-0400 Body temperature 98.24 [degF] MARLENE GIFFORD MD [facility] 08-23-2022 07:11-0400 Diastolic Blood Pressure Non-Invasive 76 1 MARLENE GIFFORD MD [facility] 08-23-2022 07:11-0400 Heart rate 80 /min MARLENE GIFFORD MD [facility] 08-23-2022 07:11-0400 Respiratory rate 18 /min MARLENE GIFFORD MD [facility] 08-23-2022 07:11-0400 Systolic Blood Pressure Non-Invasive 114 1 MARLENE GIFFORD MD [facility] 08-23-2022 03:15-0400 Heart rate 97 /min MARLENE GIFFORD MD [facility] 08-23-2022 01:15-0400 Blood Pressure Cuff Size MARLENE GIFFORD MD [facility] 08-23-2022 01:15-0400 Blood Pressure Location MARLENE GIFFORD MD [facility] 08-23-2022 01:15-0400 Blood Pressure Method MARLENE GIFFORD MD [facility] 08-23-2022 01:15-0400 Body height 177.8 cm MARLENE GIFFORD MD [facility] 08-23-2022 01:15-0400 Body temperature 98.42 [degF] MARLENE GIFFORD MD [facility] 08-23-2022 01:15-0400 Body weight 59.1 kg MARLENE GIFFORD MD [facility] 08-23-2022 01:15-0400 Diastolic Blood Pressure Non-Invasive 86 1 MARLENE GIFFORD MD [facility] 08-23-2022 01:15-0400 Heart rate 118 /min MARLENE GIFFORD MD [facility] 08-23-2022 01:15-0400 Reason For Taking VItal Signs MARLENE GIFFORD MD [facility] 08-23-2022 01:15-0400 Respiratory rate 18 /min MARLENE GIFFORD MD [facility] 08-23-2022 01:15-0400 Systolic Blood Pressure Non-Invasive 128 1 MARLENE GIFFORD MD [facility] Encounters Encounter Date Encounter Type Care Provider Facility Start: 12-18-2024 End: 12-18-2024 Emergency department patient visit Marcos Walker Facility:[facility] Start: 11-22-2024 Non-patient / Non-visit Juan Cazares DO -H-[facility] Start: 11-22-2024 End: 11-22-2024 Admission to same day surgery center Juan Cazares DO -Endoscopy Work Phone: Start: 11-22-2024 End: 11-22-2024 ambulatory Katelyn Kamara TELEVISION 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 Phone: -Endoscopy Start: 10-14-2024 End: 10-14-2024 Patient encounter procedure Stephanie SIMMONS -[facility] Work Phone: Start: 10-14-2024 End: 10-14-2024 ambulatory Katelyn Kamara NP-C Work Phone: -[facility] Start: 10-14-2024 End: 10-14-2024 ambulatory Stephanie Jenkins Facility:[facility] Start: 02-02-2024 ambulatory No Primary Car e Physician Facility:[facility] Start: 02-01-2024 ambulatory No Primary Car e Physician Facility:[facility] Start: 02-01-2024 End: 02-04-2024 Evaluation and management of inpatient No Primary Care Physician Facility:[facility] Start: 12-22-2023 End: 12-26-2023 ambulatory CHRISTIAN QUINTERO PAINT FACTORY WORKER-ANESTHESIA DIRECTOR Facility:[facility] Start: 12-22-2023 End: 12-26-2023 Outreach Lab CHRISTIAN INGRID PAINT FACTORY WORKER-ANESTHESIA DIRECTOR [facility] Start: 07-21-2023 End: 07-21-2023 Emergency department patient visit YEVGENIY QUINTEROS DO Facility:[facility] Start: 07-20-2023 End: 07-21-2023 Emergency department patient visit YEVGENIY QUINTEROS DO [facility] Start: 07-17-2023 End: 07-18-2023 Emergency department patient visit MARLENE GIFFORD MD Facility:[facility] Start: 07-17-2023 End: 07-18-2023 Emergency department patient visit MARLEEN GIFFORD MD [facility] Start: 06-12-2023 End: 06-13-2023 Emergency department patient visit DR CARIDAD SALDANA MD Facility:[facility] Start: 06-12-2023 End: 06-12-2023 Emergency department patient visit DR ASHLEY MIXON MD [facility] Start: 05-31-2023 End: 05-31-2023 Emergency department patient visit FELI METZ MD Facility:[facility] Start: 05-31-2023 End: 05-31-2023 Emergency department patient visit FELI METZ MD [facility] Start: 05-10-2023 End: 05-11-2023 ambulatory RICK Connie WOOD BINH PAINT FACTORY WORKER-ANESTHESIA DIRECTOR Facility:[facility] Start: 04-18-2023 End: 04-18-2023 Emergency department patient visit TAMIKA TORRES DO Facility:[facility] Start: 04-18-2023 End: 04-18-2023 [facility] Start: 04-18-2023 End: 04-18-2023 Emergency department patient visit TAMIKA TORRES DO Facility:[facility] Start: 04-17-2023 End: 04-17-2023 [facility] Start: 04-12-2023 End: 04-12-2023 Emergency department patient visit CHRISTIAN QUINTERO [facility] Facility:[facility] Start: 04-12-2023 End: 04-12-2023 Emergency department patient visit KATELYN SAAB MD [facility] Start: 04-12-2023 End: 04-12-2023 Emergency department patient visit KATELYN SAAB MD Facility:[facility] Start: 04-12-2023 End: 04-12-2023 Emergency department patient visit KATELYN SAAB MD [facility] Start: 04-09-2023 End: 04-09-2023 Emergency department patient visit JENNIFER FRANKS MD Facility:[facility] Start: 04-09-2023 End: 04-09-2023 Emergency department patient visit JENNIFER FRANKS MD [facility] Start: 02-24-2023 End: 03-09-2023 Evaluation and management of inpatient RENE [facility] Start: 02-23-2023 End: 02-24-2023 Emergency department patient visit [facility]STIAN [facility]O [facility] Start: 02-22-2023 End: 02-22-2023 Emergency department patient visit JENNIFER FRANKS MD Facility:[facility] Start: 02-22-2023 End: 02-22-2023 Emergency department patient visit JENNIFER FRANKS MD [facility] Start: 02-10-2023 End: 02-11-2023 Emergency department patient visit JENNIFER FRANKS MD Facility:[facility] Start: 02-10-2023 End: 02-10-2023 Emergency department patient visit TAMIKA TORRES DO [facility] Start: 09-23-2022 End: 09-23-2022 Emergency department patient visit YEVGENIY LESLIEALAN Facility:[facility] Start: 09-22-2022 End: 09-22-2022 Emergency department patient visit JENNIFER FRANKS MD Facility:[facility] Start: 09-16-2022 End: 09-17-2022 Emergency department patient [facility] Start: 08-23-2022 End: 08-23-2022 Emergency department patient visit MARLENE GIFFORD MD Facility:[facility] Start: 08-23-2022 End: 08-23-2022 Emergency department patient visit MARLENE GIFFORD MD [facility] Procedures Date Procedure Procedure Detail Performing Clinician Start: 11-22-2024 Colonoscopy Katelyn leon TELEVISION 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 Phone: Start: 10-14-2024 Total iron binding capacity measurement Katelyn Kamara TELEVISION 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 Phone: Start: 02-27-1997 Arthroscopy of ankle RC GIFFORD MD Comment on above: L Cholecystectomy MARLENE Salter Face structure (body structure) MARLENE GIFFORD MD Comment on above: plates H/O: surgery History of surge ry on lower extremity Katelyn Kamara TELEVISION 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 Phone: Comment on above: Left leg History of cholecystectomy Hx of cholecystectomy Katelyn Kamara TELEVISION 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 Phone: Plan of Treatment Date Care Activity Detail Author Start: 12-18-2024 [facility] Start: 11-22-2024 Colonoscopy w/biopsy single/multiple COLONOSCOPY AND BIOPSY [facility] Start: 11-22-2024 Endoscopy upper smal l intestine w/biopsy SMALL BOWEL ENDOSCOPY/BIOPSY [facility] Start: 11-22-2024 Patient discharge [facility] CBC W Auto Different ial panel - Blood [facility] Iron and Iron bindin g capacity panel - Serum or Plasma [facility] Patient Education ED Fainting, V agal Reaction [facility] Work Phone: Vitamin B12 measurement [facility] Immunizations Immunization Date Immunization Notes Care Provider Fa keegan 02-02-2024 influenza, high dose seasonal, preservative-free Katelyn Kamara TELEVISION 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 Phone: [facility] 02-01-2024 tetanus toxoid, redu maryanne diphtheria toxoid, and acellular pertussis vaccine, adsorbed Katelyn Kamara TELEVISION 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 Phone: [facility] Payers Date Payer Category Payer Unknown [id number] 2024 Self-pay 2023 Unknown [id number] 2018 Unknown [id number] 1960 Unknown [id number] 2.16.8 [id number] 1958 Unknown [id number] 2.16.8 40.1.502782.3.579.2.627 1958 Unknown [id number] 2.16.8 40.1.594665.3.579.2.627 1958 Unknown [id number] 2.16.8 40.1.983051.3.579.2.627 1958 Unknown [id number] 2.16.8 40.1.686572.3.579.2.627 1958 Unknown [id number] 2.16.8 40.1.939603.3.579.2.627 1958 Unknown [id number] 2.16.8 40.1.507025.3.579.2.627 1958 Unknown [id number] 2.16.8 40.1.800078.3.579.2.627 1958 Unknown [id number] 2.16.8 40.1.892749.3.579.2.627 1958 Unknown [id number] 2.16.8 40.1.364063.3.579.2.627 1958 Unknown [id number] 2.16.8 40.1.108430.3.579.2.7 1958 Unknown [id number] 2.16.8 40.1.841782.3.579.2.627 1958 Unknown [id number] 2.16.8 40.1.970884.3.579.2.627 1958 Unknown [id number] 2.16.8 40.1.352262.3.579.2.627 1958 Unknown [id number] 2.16.8 40.1.823767.3.579.2.627 1958 Unknown [id number] 2.16.8 40.1.104246.3.579.2.627 1958 Unknown [id number] 2.16.8 40.1.536839.3.579.2.627 1958 Unknown [id number] 2.16.8 40.1.887097.3.579.2.627 1958 Unknown [id number] 2.16.8 40.1.974183.3.579.2.179 Unknown [id number] 2.16.8 40.1.176068.3.579.2.462 Unknown [id number] 2.16.8 40.1.179585.3.579.2.462 Unknown [id number] 2.16.8 40.1.540186.3.579.2.462 Unknown [id number] 2.16.8 40.1.531411.3.579.2.462 Unknown [id number] 2.16.8 40.1.567074.3.579.2.462 Unknown [id number] 2.16.8 40.1.055471.3.579.2.462 Unknown [id number] 2.16.8 40.1.355813.3.579.2.462 Unknown [id number] 2.16.8 40.1.223140.3.579.2.462 Unknown [id number] 2.16.8 40.1.299228.3.579.2.462 Unknown [id number] 2.16.8 40.1.996408.3.579.2.462 Unknown [id number] 2.16.8 40.1.837503.3.579.2.462 Unknown [id number] 2.16.8 40.1.743515.3.579.2.462 Social History Date Type Detail Facility Start: 09-07-2018 End: 12-18-2024 Tobacco smoking status Never smoked tobacco (finding) [facility] Start: 1960 Sex Assigned At Male [facility] Sex Male [facility] Goals Date Patient Goal Desired Activity /State Functional Status Date Assessment Result Facility 07-21-2023 Functional Status Assistive Device None [facility] [facility] 07-20-2023 Functional Status Awake, Resting [facility] 07-18-2023 Functional Status Independent [facility] 06-12-2023 Functional Status ID band on, Call device within reach, Bed in low position, Wheels locked, Bedside Cart Locked, Safety level maintained [facility] 05-31-2023 Functional Status Independent [facility] 05-31-2023 Functional Status Ambulation in Villarreal [facility] 04-18-2023 Functional Status ID band on, Call device within reach, Bed in low position, Wheels locked, personal items within reach, Bedside Cart Locked [facility] 04-17-2023 Functional Status ID band on, Call device within reach, Bed in low position, Wheels locked, personal items within reach, Bedside Cart Locked [facility] 04-12-2023 Functional Status Standard Safet y ID band on, Call device within reach, Bed in low position, Wheels locked, Upper/Half-Length side-rails up, Bedside Cart Locked, Safety level maintained [facility] 04-12-2023 Functional Status ID band on, Call device within reach, Bed in low position, Wheels locked, personal items within reach, Bedside Cart Locked [facility] 04-09-2023 Functional Status Activity Liz tangordy Independent [facility] 04-09-2023 Functional Status Room located n ear nursing station, Door open, supervised while toileting, Room check performed, Security notified, Security present, Metal Detection Wand Used [facility] 02-22-2023 Functional Status Assistive Device None [facility] 02-22-2023 Functional Status Standard Safet y ID band on, Call device within reach, Bed in low position, Wheels locked, Upper/Half-Length side-rails up, Phone within reach, personal items within reach, Bedside Cart Locked, Safety level maintained, Non-Slip footwear, Precautions maintained [facility] 02-10-2023 Functional Status Security present 1 [facility] 02-10-2023 Functional Status [facility] 02-10-2023 Functional Status Sleeping quiet ly with easy respirations [facility] 02-10-2023 Functional Status [facility] 08-23-2022 Functional Status Identified as high risk, Room located near nursing station, Door open, Non-Slip footwear, toileting offered, toileting refused, Room check performed [facility] 08-23-2022 Functional Status [facility] 08-23-2022 Functional Status Ambulating in villarreal, Ambulating in room, Awake [facility] Mental Status Date Assessment Result Facility 12-18-2024 Cognitive function Level Of Consciousness Awake [facility] Work Phone: 11-22-2024 Cognitive function Level Of Consciousness Sedated [facility] Work Phone: 11-22-2024 Cognitive function Voice/Name [facility] Work Phone: 07-21-2023 Mental Status Orientation Oriented x 4 [facility] 07-20-[address] [facility] 07-18-2023 Mental Status Orientation Oriented x 4 [facility] 06-12-2023 Mental Status Orientation Oriented x 4 [facility] 06-12-[address] [facility] 05-31-2023 Mental Status Orientation Oriented x 4 [facility] 05-31-2023 [facility]23 Mental Status Oriented x 4 [facility] 04-17-2023 Mental Status Orientation Oriented x 4 [facility] 04-12-2023 Mental Status Orientation Oriented x 4 [facility] 04-12-2023 Mental Status Oriented x 4 [facility] 04-09-2023 Mental Status Orientation Oriented x 4 [facility] 04-09-2023 [facility]23 Mental Status Orientation Oriented x 4 [facility] 02-22-2023 [facility] 02-10-[facility]23 Mental Status Orientation Oriented x 4 [facility] 08-23-2022 Mental Status Orientation Oriented x 4 [facility] 08-23-[address] [facility] Clinical Notes 08-23-2022 to 12-18-2024 Note Date & Type Note Facility 12-18-2024 Discharge summary [facility] 11-22-2024 Procedure note [facility] 11-22-2024 Procedure note [facility] 11-22-2024 Procedure note [facility] 11-22-2024 Procedure note [facility] 11-22-2024 Consult note Note Date/Time November 22, 2024 12:11pm [facility] Medical Records Department [address] [place] [address] Pre-Anesthesia Evaluation 11/22/24 1207 MR#: [id number] Acct: [id number] Name: JAYCOB CRYSTAL Rep #:[id number] : 1960 63 From: Norris Salter PCP: ALEKSANDER MeierC Status[place] [facility] [place] Race: C Location: [place] [address] ASA Classification* ASA Classification ASA Classification: 3 [...] Procedure(s): EGD/CSCOPE Anesthesia History 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 Hx Hospitalization Yes: 01/2024 FAINTED DUE TO [...] take am of surgery PONV PONV - 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 pump machinist: PONV - 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 pump machinist Female No 11/08/24 12:24 HX of Motion [...] 11/22/24 11:59 Respiratory Assessment Respiratory Assessment - 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 pump machinist: Respiratory Tract Infection Hx - 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 pump machinist Hx Respiratory Tract Infection No 11/08/24 12:24 STOP Sleep Apnea STOP Sleep Apnea - 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 pump machinist: STOP Sleep Apnea - 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 pump machinist Hx Hypertension No 11/08/24 12:24 Hx Sleep [...] Tobacco Use History Tobacco Use History - 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 pump machinist: Tobacco Use History - 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] MD Cosigner Signature: Date CC: ~ Signed [facility] Work Phone: 1(134) 600-501709-26-2025 History and physical note Author Juan Friend [facility] Note Date/Time November 22, 2024 11:56am [facility] Medical Records Department [address] [place] [address] History & Physical Exam 11/22/24 1153 MR#: [id number] Acct: [id number] Name: ANKITROSALBATRISH GALLEGOSDesirae PITTS Rep #:[id number] : 1960 63 From: Juan Cazares DO PCP: IRIS Meier Status: [facility] Location: [place] [address] HPI - General General Date of Admission: [...] shortness of breath, black, or tarry stools. [facility] Medical History Loss of consciousness [...] 24 hr tablet, [address] [facility] 02/01/24 Unknown History extended release ibuprofen [...] - Anemia, unspecified Medications: New peg 3350-sod sulf,fdza-asg-mlh 178.7-7.3-0.5 gram (Suflave) Take as directed for [...] CC: IRIS Kamara; Juan Cazares DO~ Signed [facility] Work Phone: 1(203) 768-729809-26-2025 Consult note [facility] Medical Records Department [address] [place] [address] Anesthesia Postop Eval I 11/22/24 1305 MR#: [id number] Acct: [id number] Name: JAYCOB CRYSTAL Rep #:[id number] : 1960 63 From: Sheila Galeana CRNA PCP: IRIS Meier Status[place] [facility] [place] Race: C Location: [place] [address] Anesthesia: Postop Eval I Current Vital Signs [...] Sheila Canoigner Signature: Date CC: ~ Signed [facility]09-26-2025 Consult note [facility] Medical Records Department [address] [place] [address] Pre-Anesthesia Evaluation 11/22/24 1207 MR#: [id number] Acct: [id number] Name: JAYCOB CRYSTAL Rep #:[id number] : 1960 63 From: Norris Salter PCP: ALEKSANDER MeierC Status: REG [facility] Y Race: C Location: [place] [address] ASA Classification* ASA Classification ASA Classification: 3 [...] Procedure(s): EGD/CSCOPE Anesthesia History 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 Hx Hospitalization Yes: 01/2024 FAINTED DUE TO [...] take am of surgery PONV PONV - 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 pump 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: PONV - 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 pump machinist Female No 11/08/24 12:24 HX of Motion [...] 11/22/24 11:59 Respiratory Assessment Respiratory Assessment - 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 pump machinist: Respiratory Tract Infection Hx - 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 pump machinist Hx Respiratory Tract Infection No 11/08/24 12:24 STOP Sleep Apnea STOP Sleep Apnea - 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 pump machinist: STOP Sleep Apnea - 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 pump machinist Hx Hypertension No 11/08/24 12:24 Hx Sleep [...] Tobacco Use History Tobacco Use History - 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 pump machinist: Tobacco Use History - 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] MD Cosigner Signature: Date CC: ~ Signed [facility]09-26-2025 History and physical note [facility] Medical Records Department [address] [facility] [place] [address] History & Physical Exam 11/22/24 1153 MR#: [id number] Acct: [id number] Name: JAYCOB CRYSTAL Rep #:[id number] : 1960 63 From: Juan Cazares DO PCP: IRIS Meier Status: [facility] Location: [place] [address] HPI - General General Date of Admission: [...] shortness of breath, black, or tarry stools. [facility] Medical History Loss of consciousness [...] hr tablet, 150 mg PO DAILY [facility] 02/01/24 Unknown History extended release ibuprofen [...] - Anemia, unspecified Medications: New peg 3350-sod sulf,hnlx-tbf-pfv 178.7-7.3-0.5 gram (Suflave) Take as directed for [...] CC: IRIS Kamara; Juan Cazares DO~ Signed [facility]09-26-2025 [facility] Medical Records Department [address] [place] [address] History Physical Exam 11/22/24 1153 MR#: [id number] Acct: [id number] Name: JAYCOB CRYSTAL Rep #: [id number] : 1960 63 From: Juan Cazares DO PCP: IRIS Meier Status[facility] Location: [place] [address] HPI - General General Date of Admission: [...] shortness of breath, black, or tarry stools. [facility] Medical History Loss of consciousness [...] x3, no apparent distress (more content not included)...[facility]08-18-2025 Evaluation note* Diagnosis Onset Date Resolution Status Admit Date Anemia acute October 14, 2 025 10:09am Family history of colon canc er in father acute October 14 10:09am Screen for colon cancer acute A ugust 2024 10:09am [facility] Work Phone: 1(121) 883-980108-18-2025 Evaluation note* Diagnosis Onset Date Resolution Status Admit Date Anemia acute October 14, 2 025 10:09am Family history of colon cancer in father acute October 14 10:09am Screen for colon cancer acute A ugust 2024 10:09am Anemia acute October 11:24am Screen for colon cancer acute 2024 11:24am [facility] Work Phone: 1(438) 381-792012-08-2024 [facility] Medical Records Department [address] [place] [address] Discharge Summary 02/04/24 1209 MR#: [id number] Acct: [id number] Name: JAYCOB CRYSTAL Rep #: [id number] : 1960 63 From: Yan Pan DO PCP: Care Physician,No Primary Status:DIS IN [facility] Providers Date of Admission: 02/01/24 Date of [...] 63 year old male who presented to [facility] ED on 02/01/2024 after a syncopal [...] REFERENCE: * Patients > (more content not included)...[facility]05-24-2024 Hospital Discharge instructions Patient Education 07/21/2023 [...] worse Numbness or weakness in a leg [phone] [employer]. [address] [place] [address], [place] [address]. All rights reserved. This information is not [...] are taking other medicines. You may use pfxr-evt-mzzkfjn medicine to control pain, unless another pain [...] or as directed by your healthcare provider [phone] [employer]. [address] [place] [address]. All rights reserved. This information is not intended as a substitute for professional medical care. Always follow yourhealthcare professional's instructions. Follow Up Care 07/20/2023 22:24:38 With:CHRISTIAN QUINTERO Address: [address] [place] [phone]- [phone] When:2-4 days [facility] 05-24-2024 Note Discharge Instructions Thank you for allowing [facility] to assist you with your healthcare needs. [...] Up with CHRISTIAN QUINTERO When:Within 2-4 days Where:[address] [place] [phone] Allergies NKA Medications Please ask your primary [...] worse Numbness or weakness in a leg 6602-3347 [employer]. [address] [place] [address]. All rights reserved. This information is not [...] are taking other medicines. You may use giae-zwj-tdgsyaz medicine to control pain, unless another pain medicine was prescribed.If you have chronic conditions like diabetes, liver or kidney disease, stomach ulcers, gastrointestinal bleeding, or are taking blood thinner medicines. Be careful if you are given pain medicines, narcotics, or medicine for muscle spasm. They can causedrowsiness, and can affect your coordination, reflexes, and judgment. Do not drive or operate heavyNetotiate. Follow-up care Follow up with your healthcare [...] or as directed by your healthcare provider [phone] [employer]. [address] [place] [address]. All rights reserved. This information is not intended as a substitute for professional medical care. Always follow yourhealthcare professional's instructions. Additional Information VACCINATE! IT SAVES LIVES! Members of the community who have not yet received the COVID-19 vaccine and would like to receive it can visit one of [facility] vaccine clinics. There are many vaccine clinic locations within the [facility]. For locations and available times, please visit [email or web address]/. It is important to note that some COVID mobile vaccine clinics are held outdoors and may be canceled in rainy or stormy conditions. To learn more about pediatric vaccinations (ages 5-11), we invite you to visit the [facility] webpage. https://www.[email or web address]/pages/[email or web address]-Vpmjx-Rkbiiqphmoi-Ujwngdddrj-Ojoyc-Wxx stions.htmlTo learn more about the COVID-19 vaccine, we invite you to visit the CDC website for a list of frequently asked questions. https://www.cdc.gov/coronavirus/2019-ncov/vaccines/faq.html [facility] Patient Portal Access Instructions: Stay connected with your healthcare team and access your personal medical information anytime with the [facility] Patient Portal. If you would like a full copy of your medical records please contact the [facility] Medical Records Department Monday through Monday between 8a.m. and 4:30p.m. Please follow the directions below to access the portal: 1.Access the email account you provided upon registration to the hospital.2.Look for an invitation email from [facility].3.Open the email and access the invitation link: [facility] to [facility].Fill in the required mancuso to create [...] you will allow to register on the [facility] Patient Portal for access to your information. You can also access the [facility] Patient Portal on the niiu. Simply click on Health Records under [employer] and then click on the [facility] logo. [...] Call your local pharmacy or go to http://BioLeap.[email or web address]/[email or web address] to find one close to you.3.Make use of household items: Use cat litter or old coffee grounds to dispose medications if other options arenot available. Mix your drugs with these household products, seal them in an airtight container andthrow it into the garbage. Call [facility]: [phone] to be sure your drugs can be [...] am aware that I should contactmy doctor. 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 Signature: Date/Time: Relationship to Patient: Witness Name/Signature: Date/Time: [facility]05-23-2024 Note ORIGINAL EXAMINATION: CT OF THE ABDOMEN [...] Sign Date: 07/20/2023 11:34:23 PM Ordering Provider: [facility]05-21-2024 Hospital Discharge instructions Patient Education [...] are taking other medicines. You may use qpst-ivc-andbtfq medicine as directed on the bottle to [...] Numbness in the groin or genital area 5083-8175 [employer]. [address] [place] [address]. All rights reserved. This information is not intended as a substitute for professional medical care. Always follow yourhealthcare professional's instructions. Follow Up Care 07/17/2023 21:09:51 With:CHRISTIAN QUINTERO Address: [address] [facility] [place], [place] [phone]- [phone] When:2-4 days [facility] 05-21-2024 Note Discharge Instructions Thank you for allowing [facility] to assist you with your healthcare needs. The following is importantdischarge information regarding your hospital visit. Diagnosis from Today's Visit Low back pain What to Do Next Instructions from Your Care Team No qualifying data available. Post Acute Orders No qualifying data available. You Need to Schedule the Following Appointments Follow Up with BALTES, CHRISTIAN PAINT FACTORY WORKER-ANESTHESIA DIRECTOR When: When:Within 2-4 days Where:[address] [facility] [place] [address]- [phone] Allergies NKA Medications Please ask your primary [...] are taking other medicines. You may use cpkl-sif-jtaisxf medicine as directed on the bottle to [...] Numbness in the groin or genital area 3176-1666 [employer]. [address] [place] [address], [place] [address]. All rights reserved. This information is not intended as a substitute for professional medical care. Always follow yourhealthcare professional's instructions. Additional Information VACCINATE! IT SAVES LIVES! Members of the community who have not yet received the COVID-19 vaccine and would like to receive it can visit one of [facility] vaccine clinics. There are many vaccine clinic locations within the [facility]. For locations and available times, please visit [email or web address]/. It is important to note that some COVID mobile vaccine clinics are held outdoors and may be canceled in rainy or stormy conditions. To learn more about pediatric vaccinations (ages 5-11), we invite you to visit the [facility] webpage. https://www.[email or web address].org/pages/9285-Tfgpm-Xklyuqzplqf-Upzusgcnbk-Esynw-Zls stions.htmlTo learn more about the COVID-19 vaccine, we invite you to visit the CDC website for a list of frequently asked questions. https://www.cdc.gov/coronavirus/2019-ncov/vaccines/faq.html [facility] Patient Portal Access Instructions: Stay connected with your healthcare team and access your personal medical information anytime with the [facility] Patient Portal. If you would like a full copy of your medical records please contact the [facility] Medical Records Department Monday through Monday between 8a.m. and 4:30p.m. Please follow the directions below to access the portal: 1.Access the email account you provided upon registration to the [facility].2.Look for an invitation email from [facility].3.Open the email and access the invitation link: Accept Invitation to [facility]4.Fill in the required mancuso to create your account. Sign into www.[employer] with your username and password that you [...] you will allow to register on the [facility] Patient Portal for access to your information. You can also access the [facility] Patient Portal on the [employer] radha. Simply click on Health Records under [employer] and then click on the [employer] logo. HOW TO SAFELY DISPOSE OF PRESCRIPTION [...] Call your local pharmacy or go to http://BioLeap.[email or web address]/1P4Zo8t to find one close to you.3.Make use of household items: Use cat litter or old coffee grounds to dispose medications if other options arenot available. Mix your drugs with these household products, seal them in an airtight container andthrow it into the garbage. Call [facility]: [phone] to be sure your drugs can be [...] am aware that I should contactmy doctor. 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 Signature: Date/Time: Relationship to Patient: Witness Name/Signature: Date/Time: [facility]04-22-2024 Note. MICRO - Microbiology PROCEDURE: Blood Culture [...] Locations *1: This test was performed at: [address], [facility] , [facility] ([place])06-18-2023 Note. MICRO - Microbiology PROCEDURE: Blood Culture [...] Locations *1: This test was performed at: [facility], [address] [place] [address], [id number] , [facility] ([place]06-12-2023 Hospital Discharge instructions Patient Education 06/12/2023 21:29:15 [...] medicines you take. This includes prescription and agnc-jeq-sejjcbg medicines, vitamins, and herbs. Ask if any [...] wound with redness, swelling, or pus [employer]. [address] [place] [address]. All rights reserved. This information is not [...] diarrhea, vomiting, or a high fever. [employer]. [address] [place] [address]. All rights reserved. This information is not intended as a substitute for professional medical care. Always follow yourhealthcare professional's instructions. Follow Up Care 06/12/2023 17:20:19 With:CHRISTIAN QUINTERO Address: [address] [place] [phone] When:2-4 days [facility] 04-15-2024 Note Discharge Instructions Thank you for allowing [facility] to assist you with your healthcare needs. [...] QUINTERO When Within 2-4 days Where: [address] [place] [address] [phone] Allergies NKA Medications Please ask your primary [...] medicines you take. This includes prescription and kmoq-vrq-jfbiztl medicines, vitamins, and herbs. Ask if any [...] Open wound with redness, swelling, or pus [phone] [employer]. [address] [place] [address]. All rights reserved. This information is not [...] for diarrhea, vomiting, or a high fever. 1296-7784 [employer]. [address] [place] [address]. All rights reserved. This information is not intended as a substitute for professional medical care. Always follow yourhealthcare professional's instructions. Additional Information VACCINATE! IT SAVES LIVES! Members of the community who have not yet received the COVID-19 vaccine and would like to receive it can visit one of [facility] vaccine clinics. There are many vaccine clinic locations within the [facility]. For locations and available times, please visit [email or web address] It is important to note that some COVID mobile vaccine clinics are held outdoors and may be canceled in rainy or stormy conditions. To learn more about pediatric vaccinations (ages 5-11), we invite you to visit the [facility] webpage. https://www.[facility]is.org/pages/0879-Zlzqg-Nwfyxyvxovy-Pdjcndrfcp-Xlxlj-Agk stions.htmlTo learn more about the COVID-19 vaccine, we invite you to visit the CDC website for a list of frequently asked questions. https://www.cdc.gov/coronavirus/2019-ncov/vaccines/faq.html [facility] Patient Portal Access Instructions: Stay connected with your healthcare team and access your personal medical information anytime with the [facility] Patient Portal. If you would like a full copy of your medical records please contact the [facility] Medical Records Department Monday through Monday between 8a.m. and 4:30p.m. Please follow the directions below to access the portal: 1.Access the email account you provided upon registration to the hospital.2.Look for an invitation email from [facility].3.Open the email and access the invitation link: Accept Invitation to [facility]4.Fill in the required mancuso to create your account. Sign into www.[employer] with your username and password that you [...] you will allow to register on the [facility] Patient Portal for access to your information. You can also access the [facility] Patient Portal on the [employer] radha. Simply click on Health Records under [employer] and then click on the [employer] logo. HOW TO SAFELY DISPOSE OF PRESCRIPTION [...] Call your local pharmacy or go to http://BioLeap.[email or web address]/[email or web address] to find one close to you.3.Make use of household items: Use cat litter or old coffee grounds to dispose medications if other options arenot available. Mix your drugs with these household products, seal them in an airtight container andthrow it into the garbage. Call [facility]: [phone] to be sure your drugs can be [...] am aware that I should contactmy doctor. 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 Signature: Date/Time: Relationship to Patient: Witness Name/Signature: Date/Time: [facility]04-15-2024 Note ORIGINAL EXAMINATION: ONE XRAY VIEW OF [...] Date: 06/12/2023 7:02:51 PM [facility]ing [facility] NoteSinus rhythm Right axis deviation Baseline wander in lead(s) V1 Electronic Signature: CARIDAD SALDANA MD 06/12/2023 18:21:21[facility] 04-15-2024 Evaluation + Plan note Diagnostic Tests Pending * Blood Culture (bacterial) 06/12/23 * Blood Culture (bacterial) 06/12/23 Future Scheduled Tests Laboratory* Prostate Specific Antigen 10/11/22 * Prostate Specific Antigen 10/11/22 * Lipid Profile 10/11/22 * Hepatitis C Antibody IgG 10/11/22 * Complete Metabolic Panel 10/11/22 [facility] 04-03-2024 Hospital Discharge instructions Patient Education 05/31/2023 [...] of 100.4 F (38 C) or higher 2577-1632 [employer]. [address] [place] [address], [place] [address]. All rights reserved. This information is not intended as a substitute for professional medical care. Always follow yourhealthcare professional's instructions. Follow Up Care 05/31/2023 10:49:43 With:CHRISTIAN QUINTERO APRN-[facility] Address: [address], [place] [phone] When:2-4 days [facility] 04-03-2024 Note Discharge Instructions Thank you [...] CHRISTIAN QUINTERO When Within 2-4 days Where: [address] [place] [phone]- [phone] Allergies NKA Medications Please ask your primary [...] of 100.4 F (38 C) or higher 4841-5408 [employer]. [address] [place] [address]. All rights reserved. This information is not intended as a substitute for professional medical care. Always follow yourhealthcare professional's instructions. Additional Information VACCINATE! IT SAVES LIVES! Members of the community who have not yet received the COVID-19 vaccine and would like to receive it can visit one of [facility] vaccine clinics. There are many vaccine clinic locations within the [facility]. For locations and available times, please visit www.[email or web address].[place].gov/. It is important to note that some COVID mobile vaccine clinics are held outdoors and may be canceled in rainy or stormy conditions. To learn more about pediatric vaccinations (ages 5-11), we invite you to visit the [facility] webpage. https://www.[facility].org/pages/5801-Rhgzx-Xwphlplhwwp-Jnvvwzfyeq-Lugbh-Cfl stions.htmlTo learn more about the COVID-19 vaccine, we invite you to visit the CDC website for a list of frequently asked questions. https://www.cdc.gov/coronavirus/2019-ncov/vaccines/faq.html [facility] Patient Portal Access Instructions: Stay connected with your healthcare team and access your personal medical information anytime with the [facility] Patient Portal. If you would like a full copy of your medical records please contact the [facility] Medical Records Department Monday through Monday between 8a.m. and 4:30p.m. Please follow the directions below to access the portal: 1.Access the email account you provided upon registration to the [facility].2.Look for an invitation email from [facility].3.Open the email and access the invitation link: Accept Invitation to [facility]4.Fill in the required mancuso to create your account. Sign into www.[employer] with your username and password that you [...] you will allow to register on the [facility] Patient Portal for access to your information. You can also access the [facility] Patient Portal on the niiu. Simply click on Health Records under [employer] and then click on the [employer] logo. HOW TO SAFELY DISPOSE OF PRESCRIPTION [...] Call your local pharmacy or go to http://BioLeap.[email or web address]/[email or web address] to find one close to you.3.Make use of household items: Use cat litter or old coffee grounds to dispose medications if other options arenot available. Mix your drugs with these household products, seal them in an airtight container andthrow it into the garbage. Call [facility]: [phone] to be sure your drugs can be [...] am aware that I should contactmy doctor. 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 Signature: Date/Time: Relationship to Patient: Witness Name/Signature: Date/Time: [facility]04-03-2024 Note ORIGINAL HISTORY: Short of breath, cough, [...] Date: 05/31/2023 11:55:32 AM [facility]ing [facility] Sinus rhythm Electronic Signature: [facility]EL[facility] METZ [facility] Dis[facility] Patient Education 04/18/2023 [...] alternate ice and heat. You may use krmx-fsu-fbbbkcy pain medicine to control pain, unless another [...] numb, or tingly Pain or swelling increases 1836-7151 [employer]. [address] [place] [address]. All rights reserved. This information is not intended as a substitute for professional medical care. Always follow yourhealthcare professional's instructions. Follow Up Care 04/18/2023 03:06:12 With:CHRISTIAN QUINTERO Address: [address] [place] [phone] When:2-4 days [facility] 02-20-2024 Note Discharge Instructions Thank you for allowing [facility] to assist you with your healthcare needs. [...] QUINTERO When Within 2-4 days Where: [address] [place] [phone] Allergies NKA Medications Please ask your primary [...] alternate ice and heat. You may use phxw-bds-vdjvewx pain medicine to control pain, unless another [...] numb, or tingly Pain or swelling increases 9438-7471 [employer]. [address] [place] [address], [place] [address]. All rights reserved. This information is not intended as a substitute for professional medical care. Always follow yourhealthcare professional's instructions. Additional Information VACCINATE! IT SAVES LIVES! Members of the community who have not yet received the COVID-19 vaccine and would like to receive it can visit one of [facility] vaccine clinics. There are many vaccine clinic locations within the [facility]. For locations and available times, please visit www.[email or web address].[place].gov/. It is important to note that some COVID mobile vaccine clinics are held outdoors and may be canceled in rainy or stormy conditions. To learn more about pediatric vaccinations (ages 5-11), we invite you to visit the [facility] webpage. https://www.[facility].org/pages/4440-Tdrki-Lcloxkswzss-Hkeqpwwgsu-Kkcgf-Mwh stions.htmlTo learn more about the COVID-19 vaccine, we invite you to visit the CDC website for a list of frequently asked questions. https://www.cdc.gov/coronavirus/2019-ncov/vaccines/faq.html [facility] Patient Portal Access Instructions: Stay connected with your healthcare team and access your personal medical information anytime with the [facility] Patient Portal. If you would like a full copy of your medical records please contact the [facility] Records Department Monday through Monday between 8a.m. and 4:30p.m. Please follow the directions below to access the portal: 1.Access the email account you provided upon registration to the hospital.2.Look for an invitation email from [facility].3.Open the email and access the invitation link: Accept Invitation to [facility]4.Fill in the required mancuso to create your account. Sign into www.[employer] with your username and password that you [...] you will allow to register on the [facility] Patient Portal for access to your information. You can also access the [facility] Patient Portal on the niiu. Simply click on Health Records under [employer] and then click on the [employer] logo. HOW TO SAFELY DISPOSE OF PRESCRIPTION [...] Call your local pharmacy or go to http://BioLeap.Shipster/5X9Iw9q to find one close to you.3.Make use of household items: Use cat litter or old coffee grounds to dispose medications if other options arenot available. Mix your drugs with these household products, seal them in an airtight container andthrow it into the garbage. Call [facility]: [phone] to be sure your drugs can be [...] am aware that I should contactmy doctor. 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 Signature: Date/Time: Relationship to Patient: Witness Name/Signature: Date/Time: [facility]02-20-2024 Hospital Discharge instructions Patient Education 04/17/2023 23:45:23 [...] do rescue breathing or CPR, if needed. 6959-4575 [employer]. [address] [place] [address]. All rights reserved. This information is not intended as a substitute for professional medical care. Always follow yourhealthcare professional's instructions. Follow Up Care 04/17/2023 23:30:18 With:CHRISTIAN QUINTERO Address: [address] [place] [phone] When:2-4 days [facility] 02-19-2024 Note Discharge Instructions Thank you for allowing [facility] to assist you with your healthcare needs. [...] CHRISTIAN QUINTERO When Within 2-4 days Where: [address] [place] [phone] Allergies NKA Medications Please ask your primary [...] do rescue breathing or CPR, if needed. 3288-9842 [employer]. [address] [place] [address]. All rights reserved. This information is not intended as a substitute for professional medical care. Always follow yourhealthcare professional's instructions. Additional Information VACCINATE! IT SAVES LIVES! Members of the community who have not yet received the COVID-19 vaccine and would like to receive it can visit one of [facility] vaccine clinics. There are many vaccine clinic locations within the [facility]. For locations and available times, please visit www.[email or web address].[place].gov/. It is important to note that some COVID mobile vaccine clinics are held outdoors and may be canceled in rainy or stormy conditions. To learn more about pediatric vaccinations (ages 5-11), we invite you to visit the [facility] webpage. https://www.[facility].org/pages/9108-Lxflu-Banomzymicp-Dhqatpiotm-Nimko-Kne stions.htmlTo learn more about the COVID-19 vaccine, we invite you to visit the CDC website for a list of frequently asked questions. https://www.cdc.gov/coronavirus/2019-ncov/vaccines/faq.html [facility] Patient Portal Access Instructions: Stay connected with your healthcare team and access your personal medical information anytime with the [facility] Patient Portal. If you would like a full copy of your medical records please contact the [facility] Records Department Monday through Monday between 8a.m. and 4:30p.m. Please follow the directions below to access the portal: 1.Access the email account you provided upon registration to the [facility].2.Look for an invitation email from [facility].3.Open the email and access the invitation link: Accept Invitation to [facility].Fill in the required mancuso to create your account. Sign into www.[employer] with your username and password that you [...] you will allow to register on the [facility] Patient Portal for access to your information. You can also access the [facility] Patient Portal on the niiu. Simply click on Health Records under [employer] and then click on the [employer] logo. HOW TO SAFELY DISPOSE OF PRESCRIPTION [...] Call your local pharmacy or go to http://BioLeap.Shipster/3E5Ka2e to find one close to you.3.Make use of household items: Use cat litter or old coffee grounds to dispose medications if other options arenot available. Mix your drugs with these household products, seal them in an airtight container andthrow it into the garbage. Call [facility]: [phone] to be sure your drugs can be [...] am aware that I should contactmy doctor. 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 Signature: Date/Time: Relationship to Patient: Witness Name/Signature: Date/Time: [facility]02-14-2024 Hospital Discharge instructions Patient Education 04/12/2023 19:05:03 [...] affected hand Decreased movement of the hand 2141-8902 [employer]. [address] [place] [address]. All rights reserved. This information is not intended as a substitute for professional medical care. Always follow yourhealthcare professional's instructions. Follow Up Care 04/12/2023 18:48:30 With:CHRISTIAN QUINTERO Address: [address] [place] [phone] Business (1) When:Within 1 Week(s) Comments:Follow-up as needed.Daily wound care with apllication of topical antibiotic ointment.Tylenol or Advil for pain as needed.Watch for signs of infection.Return for any problems. [facility] 02-14-2024 Emergency department Discharge summary Discharge Instructions Thank you for allowing [facility] to assist you with your healthcare needs. [...] infection. Return for any problems. Where: [address] [place] [phone] Business (1) Allergies NKA Medications Please ask [...] affected hand Decreased movement of the hand 0046-2464 [employer]. [address] [place] [address]. All rights reserved. This information is not intended as a substitute for professional medical care. Always follow yourhealthcare professional's instructions. Additional Information VACCINATE! IT SAVES LIVES! Members of the community who have not yet received the COVID-19 vaccine and would like to receive it can visit one of [facility] vaccine clinics. There are many vaccine clinic locations within the [facility]. For locations and available times, please visit www.[email or web address].gov/. It is important to note that some COVID mobile vaccine clinics are held outdoors and may be canceled in rainy or stormy conditions. To learn more about pediatric vaccinations (ages 5-11), we invite you to visit the [facility] webpage. https://www.[facility].org/pages/7768-Qbtai-Drxppryjdxw-Giuecvxboe-Oppxh-Cbr stions.htmlTo learn more about the COVID-19 vaccine, we invite you to visit the CDC website for a list of frequently asked questions. https://www.cdc.gov/coronavirus/2019-ncov/vaccines/faq.html [facility] Patient Portal Access Instructions: Stay connected with your healthcare team and access your personal medical information anytime with the [facility] Patient Portal. If you would like a full copy of your medical records please contact the [facility] Records Department Monday through Monday between 8a.m. and 4:30p.m. Please follow the directions below to access the portal: 1.Access the email account you provided upon registration to the [facility].2.Look for an invitation email from [facility].3.Open the email and access the invitation link: Accept Invitation to [facility]4.Fill in the required mancuso to create your account. Sign into www.[employer] with your username and password that you [...] you will allow to register on the [facility] Patient Portal for access to your information. You can also access the [facility] Patient Portal on the niiu. Simply click on Health Records under [employer] and then click on the [facility] logo. [...] Call your local pharmacy or go to http://BioLeap.Shipster/8K5Bi4r to find one close to you.3.Make use of household items: Use cat litter or old coffee grounds to dispose medications if other options arenot available. Mix your drugs with these household products, seal them in an airtight container andthrow it into the garbage. Call [facility]: [phone] to be sure your drugs can be [...] am aware that I should contactmy doctor. 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 Signature: Date/Time: Relationship to Patient: Witness Name/Signature: Date/Time: [facility]02-14-[facility]24 Hospital Discharge instructions Patient Education 04/12/2023 05:17:55 [...] some information about medicine: You may use qeqr-tlz-hzumvfd medicine such as acetaminophen or ibuprofen to [...] re-open Bleeding not controlled by direct pressure 1823-7574 [employer]. [address] [place] [address], [place] [address]. All rights reserved. This information is not intended as a substitute for professional medical care. Always follow yourhealthcare professional's instructions. Follow Up Care 04/12/2023 05:04:47 With:CHRISTIAN QUINTERO Address: [address] [place] [phone] Business (1) When:Within 1 Week(s) Comments:Follow-up as needed.Daily wound care with application of topical antibiotic ointment and dressing changes.Watch for signs of infection.Return to the ED for any problems or concerns. [facility] 02-14-2024 Note Discharge Instructions Thank you for allowing [facility] to assist you with your healthcare needs. [...] ED for any problems or concerns. Where: [address] [place] [phone] Business (1) Allergies NKA Medications Please ask [...] some information about medicine: You may use yisb-ckn-cxeeisj medicine such as acetaminophen or ibuprofen to [...] re-open Bleeding not controlled by direct pressure 6106-8642 [employer]. [address] [place] [address], [place] [address]. All rights reserved. This information is not intended as a substitute for professional medical care. Always follow yourhealthcare professional's instructions. Additional Information VACCINATE! IT SAVES LIVES! Members of the community who have not yet received the COVID-19 vaccine and would like to receive it can visit one of [facility] vaccine clinics. There are many vaccine clinic locations within the [facility]. For locations and available times, please visit www.[email or web address].[place].gov/. It is important to note that some COVID mobile vaccine clinics are held outdoors and may be canceled in rainy or stormy conditions. To learn more about pediatric vaccinations (ages 5-11), we invite you to visit the [facility] webpage. https://www.[facility].org/pages/0695-Snpsx-Fohuurmlbfq-Pqoapjlcys-Vguig-Yjw stions.htmlTo learn more about the COVID-19 vaccine, we invite you to visit the CDC website for a list of frequently asked questions. https://www.cdc.gov/coronavirus/2019-ncov/vaccines/faq.html [facility] Patient Portal Access Instructions: Stay connected with your healthcare team and access your personal medical information anytime with the [facility] Patient Portal. If you would like a full copy of your medical records please contact the [facility] Records Department Monday through Monday between 8a.m. and 4:30p.m. Please follow the directions below to access the portal: 1.Access the email account you provided upon registration to the [facility].2.Look for an invitation email from [facility].3.Open the email and access the invitation link: Accept Invitation to [facility]4.Fill in the required mancuso to create your account. Sign into www.[employer] with your username and password that you [...] you will allow to register on the [facility] Patient Portal for access to your information. You can also access the [facility] Patient Portal on the niiu. Simply click on Health Records under [employer] and then click on the [employer] logo. HOW TO SAFELY DISPOSE OF PRESCRIPTION [...] Call your local pharmacy or go to http://BioLeap.Shipster/8H3Es3a to find one close to you.3.Make use of household items: Use cat litter or old coffee grounds to dispose medications if other options arenot available. Mix your drugs with these household products, seal them in an airtight container andthrow it into the garbage. Call [facility]: [phone] to be sure your drugs can be [...] am aware that I should contactmy doctor. 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 Signature: Date/Time: Relationship to Patient: Witness Name/Signature: Date/Time: [facility]02-[facility]24 Hospital Discharge instructions Patient Education 04/09/2023 06:16:27 [...] providers about all of the prescription and nnri-zmy-kullvib medicines, vitamins, and supplements you take. Certain [...] behavior and ask you to seek help [phone] [employer]. [address] [place] [address], [place] [address]. All rights reserved. This information is not intended as a substitute for professional medical care. Always follow yourhealthcare professional's instructions. Follow Up Care 04/09/2023 03:19:13 With:[facility] Address: When:2-4 days [facility] 02-11-2024 Note Discharge Instructions Thank you for [...] Appointments Follow Up with [facility] When Within 2-4 days Where: [...] providers about all of the prescription and cntn-itt-olflktz medicines, vitamins, and supplements you take. Certain [...] behavior and ask you to seek help [phone] [employer]. [address] [place] [address], [place] [address]. All rights reserved. This information is not intended as a substitute for professional medical care. Always follow yourhealthcare professional's instructions. Additional Information VACCINATE! IT SAVES LIVES! Members of the community who have not yet received the COVID-19 vaccine and would like to receive it can visit one of [facility] vaccine clinics. There are many vaccine clinic locations within the [facility]. For locations and available times, please visit www.[email or web address].gov/. It is important to note that some COVID mobile vaccine clinics are held outdoors and may be canceled in rainy or stormy conditions. To learn more about pediatric vaccinations (ages 5-11), we invite you to visit the [facility] webpage. https://www.[facility].org/pages/4019-Nrcxx-Rjthbtlydey-Rrghjzpcon-Feckd-Hoq stions.htmlTo learn more about the COVID-19 vaccine, we invite you to visit the CDC website for a list of frequently asked questions. https://www.cdc.gov/coronavirus/2019-ncov/vaccines/faq.html [facility] [facility] Patient Portal Access Instructions: Stay connected with your healthcare team and access your personal medical information anytime with the [facility] Patient Portal. If you would like a full copy of your medical records please contact the [facility] Medical Records Department Monday through Monday between 8a.m. and 4:30p.m. Please follow the directions below to access the portal: 1.Access the email account you provided upon registration to the [facility].2.Look for an invitation email from [facility].3.Open the email and access the invitation link: Accept Invitation to [facility]4.Fill in the required mancuso to create your account. Sign into [email or web address].[email or web address] with your username and password that you [...] you will allow to register on the [facility] Patient Portal for access to your information. You can also access the [facility] Patient Portal on the [employer] radha. Simply click on Health Records under [employer] and then click on the [facility] logo. [...] Call your local pharmacy or go to [email or web address]/[email or web address] to find one close to you.3.Make use of household items: Use cat litter or old coffee grounds to dispose medications if other options arenot available. Mix your drugs with these household products, seal them in an airtight container andthrow it into the garbage. Call [facility]: [phone] to be sure your drugs can be [...] am aware that I should contactmy doctor. 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 Signature: Date/Time: Relationship to Patient: Witness Name/Signature: Date/Time: [facility]02-11-2024 NoteSinus rhythm Right axis deviation Baseline wander in lead(s) V5 Electronic Signature: JENNIFER FRANKS MD 04/09/2023 06:05:59[facility] 12-27-2023 Hospital Discharge instructions Patient Education 02/22/2023 [...] red color) Loss of consciousness Severe headache 3207-4684 [employer]. [address] [place] [address], [place] [address]. All rights reserved. This information is not intended as a substitute for professional medical care. Always follow [facility] professional's instructions. Follow Up Care 02/22/2023 13:57:33 With:CHRISTIAN QUINTERO Address: [address] [place] [id number] [phone] When:2-4 days [facility] 12-27-2023 Note Discharge Instructions Thank you for allowing [facility] to assist you with your healthcare needs. [...] CHRISTIAN QUINTERO When Within 2-4 days Where: [address] [place] [id number] [phone] Allergies NKA Medications Please ask your primary [...] red color) Loss of consciousness Severe headache 3389-9522 [employer]. [address] [place] [address]. All rights reserved. This information is not intended as a substitute for professional medical care. Always follow yourhealthcare professional's instructions. Additional Information VACCINATE! IT SAVES LIVES! Members of the community who have not yet received the COVID-19 vaccine and would like to receive it can visit one of [facility] vaccine clinics. There are many vaccine clinic locations within the [facility]. For locations and available times, please visit [email or web address] It is important to note that some COVID mobile vaccine clinics are held outdoors and may be canceled in rainy or stormy conditions. To learn more about pediatric vaccinations (ages 5-11), we invite you to visit the [facility] webpage. [email or web address]/[email or web address] [email or web address] learn more about the COVID-19 vaccine, we invite you to visit the CDC website for a list of frequently asked questions. https://www.cdc.gov/coronavirus/2019-ncov/vaccines/faq.html [facility] Patient Portal Access Instructions: Stay connected with your healthcare team and access your personal medical information anytime with the [facility] Patient [facility]. If you would like a full copy of your medical records please contact the [facility] Medical Records Department Monday through Monday between 8a.m. and 4:30p.m. Please follow the directions below to access the portal: 1.Access the email account you provided upon registration to the [facility].2.Look for an invitation email from [facility].3.Open the email and access the invitation link: Accept Invitation to [facility]4.Fill in the required mancuso to create your account. Sign into www.[email or web address] with your username and password that you [...] you will allow to register on the [facility] Patient Portal for access to your information. You can also access the [facility] Patient Portal on the [employer] radha. Simply click on Health Records under [email or web address] and then click on the [facility] logo. [...] Call your local pharmacy or go to http://bit.Shipster/3S5Tp9t to find one close to you.3.Make use of household items: Use cat litter or old coffee grounds to dispose medications if other options arenot available. Mix your drugs with these household products, seal them in an airtight container andthrow it into the garbage. Call [facility]: [phone] to be sure your drugs can be [...] am aware that I should contactmy doctor. 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 Signature: Date/Time: Relationship to Patient: Witness Name/Signature: Date/Time: [facility]12-15-2023 NoteSinus rhythm Borderline right axis deviation Electronic Signature: JENNIFER FRANKS MD 02/10/2023 13:24:43[facility] 12-15-2023 SARS-CoV-2 (COVID-19) RNA JENNIFER+probe Ql (Nph) Negative *NA* (02/10/23 1:14 PM)AO Auto Urine [id number] Evaluation + Plan note Future Scheduled Tests Laboratory* Prostate Specific Antigen 10/11/22 * Prostate Specific Antigen 10/11/22 * Lipid Profile 10/11/22 * Hepatitis C Antibody IgG 10/11/22 * Complete Metabolic Panel 10/11/22 [facility] 06-27-2023 SARS-CoV-2 (COVID-19) RNA JENNIFER+probe Ql (Nph) Negative *NA* (08/23/22 1:32 AM)AO Auto Urine SSConsult note [facility] Medical Records Department [address] [place] [address] Anesthesia Postop Eval II 11/22/24 1508 MR#: [id number] Acct: [id number] Name: JAYCOB CRYSTAL Rep #:[id number] : 1960 63 From: Norris Slater PCP: Katelyn Kamara TELEVISION NEWS VIDEO EDITOR-C Status: [facility] Y Race: C Location: EN Anesthesia Postop Eval I Sum Postop Eval Completion status Anesthesia document: Postop Eval 1 completed: Yes Anesthesia Postop Eval I Summary Anesthesia Postop Eval I Summary: Anesthesia Postop Eval I: Assessment Summary Airway patent Yes 11/22/24 13:06 FREIGHT AGENT.HBARR Spontaneous unlabored Yes 11/22/24 13:06 FREIGHT AGENT.HBARR respirations Mental status Awake 11/22/24 13:06 FREIGHT AGENT.HBARR nausea No 11/22/24 13:06 FREIGHT AGENT.HBARR Vomiting No 11/22/24 13:06 FREIGHT AGENT.HBARR Anesthesia Postop Eval I: Fluid Summary Crystalloid volume administer 500 11/22/24 13:06 FREIGHT AGENT.HBARR (ml) Colloids volume administered ( ml) Blood Product volume administered (ml) Total IV fluid infused 500 11/22/24 13:06 YOAN Anesthesia Postop Eval I: Summary Notes Anesthesia Complication No 11/22/24 13:06 FREIGHT AGENT.[place] Anesthesia Complication Comment: Post-operative progress note Anesthesia: Postop Eval II Evaluation Mental status: Awake Pain Level: 1 nausea: No Vomiting: No Complications Anesthesia Complication: No 11/22/24 1508 MD> Date _ Norris Franks MD Cosigner Signature: Date CC: ~ Signed [facility] Author Sheila Galeana [facility] Note Date/Time November 22, 2024 1:28pm [facility] Medical Records Department [address] [place] [address] Anesthesia Postop Eval I 11/22/24 1305 MR#: [id number] Acct: [id number] Name: JAYCOB CRYSTAL Rep #:[id number] : 1960 63 From: Sheila Galeana CRNA PCP: Katelyn Kamara TELEVISION NEWS VIDEO EDITOR-C Status: REG SD Y Race: C Location: [place] [address] Anesthesia: Postop Eval I Current Vital Signs [...] CRNA Cosigner Signature: Date CC: ~ Signed [facility] Work Phone: Consult note Author Norris Franks [facility] Note Date/Time November 22, 2024 3:08pm [facility] Medical Records Department [address] [place] [address] Anesthesia Postop Eval II 11/22/24 1508 MR#: [id number] Acct: [id number] Name: JAYCOB CRYSTAL Rep #:[id number] : 1960 63 From: Norris Salter PCP: Katelyn Kamara, TELEVISION NEWS VIDEO EDITOR-C Status: [facility] Y Race: C Location: EN Anesthesia Postop Eval I Sum Postop Eval Completion status Anesthesia document: Postop Eval 1 completed: Yes Anesthesia Postop Eval I Summary Anesthesia Postop Eval I Summary: Anesthesia Postop Eval I: Assessment Summary Airway patent Yes 11/22/24 13:06 FREIGHT AGENT.HBARR Spontaneous unlabored Yes 11/22/24 13:06 FREIGHT AGENT.HBARR respirations Mental status Awake 11/22/24 13:06 FREIGHT AGENT.HBARR nausea No 11/22/24 13:06 FREIGHT AGENT.HBARR Vomiting No 11/22/24 13:06 FREIGHT AGENT.HBARR Anesthesia Postop Eval I: Fluid Summary Crystalloid volume administer 500 11/22/24 13:06 FREIGHT AGENT.HBARR (ml) Colloids volume administered ( ml) Blood Product volume administered (ml) Total IV fluid infused 500 11/22/24 13:06 FREIGHT AGENT.HBARR Anesthesia Postop Eval I: Summary Notes Anesthesia Complication No 11/22/24 13:06 FREIGHT AGENT.HBARR Anesthesia Complication Comment: Post-operative progress note Anesthesia: Postop Eval II Evaluation Mental status: Awake Pain Level: 1 nausea: No Vomiting: No Complications Anesthesia Complication: No 11/22/24 1508 <Electronically signed by Norris Franks MD> Date _ Norris Franks MD Cosigner Signature: Date CC: ~ Signed [facility] Work Phone: Discharge summary Author Marcos Walker [facility] Note Date/Time December 18, 2024 2:25pm [facility] Medical Records Department [address] [place] [address] Emergency Department Summary 12/18/24 MR#: [id number] Acct: [id number] Name: JAYCOB CRYSTAL Rep #:[id number] : [...] hr tablet, 150 mg PO DAILY [facility] 02/01/24 11/22/24 History extended release ibuprofen [...] rhythm. Rate of 76. EKG is normal. OH interval is under 62 ms. QS duration 84 ms. QT duration 4 and 10 ms. Novice is normal. History and physical is consistent [...] Provider: Katelyn Kamara NP Referrals: Katelyn Kamara TELEVISION NEWS VIDEO EDITOR, TELEVISION NEWS VIDEO EDITOR-C [Primary Care Provider, Medical] - As Needed Print Language: German Disposition Disposition: Home, Self Care What to do if you have Problems For any increased pain, shortness of breath, bleeding, nausea or vomiting, chestpain, or any unexpected problems, contact your Primary Care Provider. Call [facility] ([phone]) or report to the closest Emergency Room. Call 911 if necessary. 12/18/24 1125 <Electronically signed by Marcos Walker MD> Cosigner Signature (if applicable): CC: TELEVISION NEWS VIDEO EDITOR-C Katelyn Kamara ~ Signed [facility] Work Phone: Evaluation + Plan note Future Appointments Appointment Date:09/02/2022 02:00:00 PM Scheduled Provider:CHRISTIAN QUINTERO Location:[facility] Appointment Type:PC OV [facility] Evaluation + Plan note Future Appointments Appointment Date:04/19/2023 11:00:00 AM Scheduled Provider:CHRISTIAN QUINTREO Location:[facility] Appointment Type:PC OV Future Scheduled Tests Laboratory* Prostate Specific Antigen 10/11/22 * Prostate Specific Antigen 10/11/22 * Lipid Profile 10/11/22 * Hepatitis C Antibody IgG 10/11/22 * Complete Metabolic Panel 10/11/22 [facility] Evaluation + Plan note Future Appointments Appointment Date:07/21/2023 11:00:00 AM Scheduled Provider:CHRISTIAN QUINTERO Location:[facility] Appointment Type:PC OV Appointment Date:09/13/2023 10:30:00 AM Scheduled Provider:CHRISTIAN QUINTERO Location:[facility] Appointment Type:PC OV Future Scheduled Tests Laboratory* Prostate Specific Antigen 10/11/22 * Prostate Specific Antigen 10/11/22 * Lipid Profile 10/11/22 * Hepatitis C Antibody IgG 10/11/22 * Complete Metabolic Panel 10/11/22 [facility] Evaluation + Plan note Future Appointments Appointment Date:08/18/2023 11:00:00 AM Scheduled Provider:CHRISTIAN QUINTERO Location:[facility] Appointment Type:PC OV Appointment Date:09/13/2023 10:30:00 AM Scheduled Provider:CHRISTIAN QUINTERO Location:[facility] Appointment Type:PC OV Future Scheduled Tests Laboratory* Ferritin 07/21/23 * Folate Level 07/21/23 * Iron Level 07/21/23 * Prostate Specific Antigen 07/21/23 * Prostate Specific Antigen 10/11/22 * Prostate Specific Antigen 10/11/22 * Vitamin B12 Level 07/21/23 * Lipid Profile 07/21/23 * Lipid Profile 10/11/22 * Hepatitis C Antibody IgG 10/11/22 * Complete Metabolic Panel 10/11/22 [facility] Evaluation + Plan note Future Appointments Appointment Date:03/22/2024 10:30:00 AM Scheduled Provider:CHRISTIAN QUINTERO Location:[facility] Appointment Type:PC OV Future Scheduled Tests Laboratory* Folate Level 07/21/23 * Iron Level 07/21/23 * Vitamin B12 Level 07/21/23 * Lipid Profile 07/21/23 [facility] Evaluation note* Diagnosis Onset Date Resolution Status Admit Date Anemia acute October 14, 2 025 10:09am [facility] Work Phone: Hospital course Narrative No data available for this section [facility] Hospital Discharge instructions No data available for this section [facility] Progress note No data available for this section [facility] Reason for referral (narrative)No reason for referral information [facility] Work Phone: summary note* Cecille, PRAVEEN Escobar L: PERFORM Event Display: Patient Summary Documents Authored Date: [id number] [facility] summary note* Cecille, PRAVEEN Luz L: PERFORM Event Display: Patient Summary Documents Authored Date: [id number] [facility] Summary Purpose Family History No Family History Records Found Advance Directives Advance Directive Response Recorded Date/ Time Do you have a Healthcare Power of Client Portfolio Manager? No November 08, 2024 12:24pm Advance Directive Response Recorded Date/ Time Do you have a Healthcare Power of Client Portfolio Manager? No December 18, 2024 9:29am Do you have a Healthcare Power of Client Portfolio Manager? No November 08, 2024 11:24am Chief Complaint [...] Active Member Role/Relationship Status Dates Christian Quintero TELEVISION NEWS VIDEO EDITOR, TELEVISION NEWS VIDEO EDITOR-C Primary Care Provider Active Team Status: Inactive Member Role/Relationship Status Dates Stephanie Jenkins NP-C Attending Provider Active Start: October 14, 2024 End: October 14, 2024 Katelyn Kamara TELEVISION NEWS VIDEO EDITOR, TELEVISION NEWS VIDEO EDITOR-C Referring Provider Active Start: October 14, 2024 End: October 14, 2024 Christian Quintero TELEVISION NEWS VIDEO EDITOR, TELEVISION NEWS VIDEO EDITOR-C Primary Care Provider Active Start: October 14, 2024 End: October 14, 2024 Team Status: Active Member Role/Relationship Status Dates Katelyn Kamara TELEVISION NEWS VIDEO EDITOR, TELEVISION NEWS VIDEO EDITOR-C Primary Care Provider Act ginger Team Status: Inactive Member Role/Relationship Status Dates Kateyln Kamara TELEVISION NEWS VIDEO EDITOR, TELEVISION NEWS VIDEO EDITOR-C Primary Care Provider Act ginger Start: October 14, 2024 End: October 14, 2024 Stephanie Jenkins NP-C Attending Provider Active Start: October 14, 2024 End: October 14, 2024 Stephanie Jenkins NP-C Referring Provider Active Start: October 14, 2024 End: October 14, 2024 Team Status: Active Member Role/Relationship Status Dates Katelyn Kamara NP, TELEVISION NEWS VIDEO EDITOR-C Primary care physician Ac tive Team Status: Inactive Member Role/Relationship Status Dates Stephanie Jenkins NP-C Attending physician Active Start: October 14, 2024 End: October 14, 2024 Katelyn Kamara TELEVISION NEWS VIDEO EDITOR, TELEVISION NEWS VIDEO EDITOR-C Referring Provider Active Start: October 14, 2024 End: October 14, 2024 Christian Quintero NP, TELEVISION NEWS VIDEO EDITOR-C Primary care physician Active Start: October 14, 2024 End: October 14, 2024 Team Status: Inactive Member Role/Relationship Status Dates Katelyn Kamara NP, TELEVISION NEWS VIDEO EDITOR-C Primary care physician Ac tive Start: October 14, 2024 End: October 14, 2024 Stephanie Jenkins NP-C Attending physician Active Start: October 14, 2024 End: October 14, 2024 Stephanie Jenkins TELEVISION NEWS VIDEO EDITOR-C Referring Provider Active Start: October 14, 2024 End: October 14, 2024 Team Status: Inactive Member Role/Relationship Status Dates Katelyn Kamara TELEVISION NEWS VIDEO EDITOR, TELEVISION NEWS VIDEO EDITOR-C Primary care physician Active Start: November 22, 2024 End: November 22, 2024 Katelyn Kamara TELEVISION NEWS VIDEO EDITOR, TELEVISION NEWS VIDEO EDITOR-C Referring Provider Active Start: October End: November 22, 2024 Dr. Juan Cazares DO Attending physician Active Start: November 22, 2024 End: November 22, 2024 Team Status: Active Member Role/Relationship Status Dates Katelyn Kamara TELEVISION NEWS VIDEO EDITOR, TELEVISION NEWS VIDEO EDITOR-C Primary care physician Active Start: November 22, 2024 Katelyn Kamara TELEVISION NEWS VIDEO EDITOR, TELEVISION NEWS VIDEO EDITOR-C Referring Provider Active Start: October Dr. Juan Cazares DO Attending physician Active Start: November 22, 2024 Dr. Juan Cazares DO Nurse Practitioner Active Start: November 22, 2024 Team Status: Inactive Member Role/Relationship Status Dates Katelyn Kamara TELEVISION NEWS VIDEO EDITOR, TELEVISION NEWS VIDEO EDITOR-C Primary care physician Active Start: December 182024 [...] section and content) DATE CREATED AUTHOR 07/24/2023 [facility] ([place]) DATE CREATED AUTHOR 'S ORGANIZ ATION 09/19/2023 [facility] DATE CREATED AUTHOR 'S ORGANIZ ATION 02/01/2024 [facility] DATE CREATED AUTHOR AUTHOR'S ORGANIZ ATION 12/29/2024 [facility] Goals (unrecognized section and content) Goals may [...] BE BASED ON THE PRIMARY CLINICAL RECORDS. [facility]. provides no warranty or guarantee of the accuracy or completeness of information in this document.
[2025-01-23] MEDS: Lactated Ringers 1,000 ML 125 ML IV ×2 (03:58→10:49)
[2025-01-23] MEDS: Heparin Injection (Vial) 5,000 UNIT/ML VIAL 5000 UNIT SC ×3 (04:19→20:43)
[2025-01-23 07:10] LABS: Hematocrit 26.7 % (40-54); Hemoglobin 9.1 g/dL (13.0-16.5); Immature Granulocytes Count 0.070 X10^3/uL (0.0-0.0); Mean Corp Hgb Conc 34.1 g/dL (32-36); Mean Corpuscular Volume 95.0 fL (80-94); Mean Platelet Vol. 10.7 fl (6.2-12.0); NRBC Flagged by Analyzer 0 % (0-5); Platelet Count 226 K/mm3 (150-450); RBC Distribution Width CV 12.4 % (11.6-14.6); RBC Distribution Width SD 42.7 fl (35.1-43.9); Red Blood Count 2.81 M/mm3 (4.6-6.2); White Blood Count 10.5 K/mm3 (4.4-11.0)
[2025-01-23 07:25] LABS: Anion Gap 10 (5-15); BUN 24 mg/dL (4-19); BUN/Creat Ratio 11.0 RATIO (10-20); Calcium,Total 8.6 mg/dL (7.6-11.0); Carbon Dioxide 24.7 mmol/L (21.0-32.0); Chloride 103 mmol/L (98-108); Estimated Creatinine Clearance 29.86 ml/min (50-250); Glucose 109 mg/dL (70-99); Magnesium 1.9 mg/dL (1.5-2.2); Potassium 4.2 mmol/L (3.3-5.1)
--- NOTE | 2025-01-23 07:49 | PCM.PN.HOSP ---
Reason for Visit Chief Complaint: Fever and generalized weakness Subjective Subjective Patient is a 64-year-old gentleman who presented with progressive generalized weakness found to be in acute kidney injury as well as acute cystitis admitted to a monitored bed for subsequent management Objective Data Objective Data Vital Signs: Vital Signs Temp Pulse Resp BP Pulse Ox O2 Del Method 98.3 F 93 16 122/83 H 97 Room Air 01/23/25 03:50 01/23/25 03:50 01/23/25 03:50 01/23/25 03:50 01/23/25 03:50 01/23/25 05:15 Oxygen Delivery Method Room Air Weight: 64.501 kg Body Mass Index (BMI) 20.4 Intake & Output: Intake and Output for Last 24 Hours 01/21/25 01/22/25 01/23/25 23:59 23:59 23:59 Intake Total 1100 / 1100 Output Total 0 / 0 Balance 1100 / 1100 Lab / Micro Data 01/23/25 06:50 01/23/25 06:50 Labs: Laboratory Results - last 24 hr 01/23/25 00:50: WBC 11.7 H, RBC 3.06 L, Hgb 9.5 L, Hct 29.2 L, MCV 95.4 H, MCH 31.0, MCHC 32.5, RDW Std Deviation 42.3, RDW Coeff of Lola 12.3, Plt Count 261, MPV 11.0, Immature Gran % (Auto) 0.400, Neut % (Auto) 87.1 H, Lymph % (Auto) 3.9 L, Mcduffie % (Auto) 8.2, Eos % (Auto) 0.1, Baso % (Auto) 0.3, Absolute Neuts (auto) 10.2 H, Absolute Lymphs (auto) 0.46 L, Nucleated RBC % 0, PT 15.2 H, INR 1.2, APTT 35.1, Sodium 136, Potassium 4.0, Chloride 98, Carbon Dioxide 23.8, Anion Gap 14, BUN 25 H, Creatinine 2.51 H, Estim Creat Clear Calc 26.90 L, Est GFR (MDRD) Non-Af 28 L, BUN/Creatinine Ratio 9.9 L, Glucose 135 H, Lactic Acid 1.5, Calcium 8.8, Total Bilirubin 0.61, AST 26, ALT 47, Alkaline Phosphatase 149 H, Total Protein 6.8, Albumin 3.5, Globulin 3.3, Albumin/Globulin Ratio 1.1 01/23/25 01:39: Urine Color Yellow, Urine Clarity Clear, Urine pH 7.0, Ur Specific [place] 1.005, Urine Protein 15 H, Urine Glucose (UA) Normal, Urine Ketones Negative, Urine Occult Blood 10 H, Urine Nitrite Negative, Urine Bilirubin Negative, Urine Urobilinogen Normal, Ur Leukocyte Esterase 100 H, Urine RBC 0-5 SEEN, Urine WBC 0-5 SEEN, Ur Squamous Epith Cells 0 SEEN, Urine Bacteria 1+, Urine Mucus 0 SEEN 01/23/25 06:50: WBC 10.5, RBC 2.81 L, Hgb 9.1 L, Hct 26.7 L, MCV 95.0 H, MCH 32.4 H, MCHC 34.1, RDW Std Deviation 42.7, RDW Coeff of Lola 12.4, Plt Count 226, MPV 10.7, Immature Gran % (Auto) 0.700, Neut % (Auto) 82.4 H, Lymph % (Auto) 7.4 L, Mcduffie % (Auto) 8.9, Eos % (Auto) 0.4, Baso % (Auto) 0.2, Absolute Neuts (auto) 8.7 H, Absolute Lymphs (auto) 0.78 L, Nucleated RBC % 0, Sodium 138, Potassium 4.2, Chloride 103, Carbon Dioxide 24.7, Anion Gap 10, BUN 24 H, Creatinine 2.22 H, Estim Creat Clear Calc 29.86 L, Est GFR (MDRD) Non-Af 32 L, BUN/Creatinine Ratio 11.0, Glucose 109 H, Calcium 8.6, Magnesium 1.9 Rhythm Strip Rhythm Strip: Sinus Tach Rate: 116 Ectopy: None Physical Exam Narrative GENERAL: Significantly flat affect HEENT: Atraumatic; normocephalic EYES; Anicteric, Normal Conjunctiva NECK; supple, normal thyroid, RESPIRATORY: Diminished to auscultation CARDIOVASCULAR: Regular S1 S2, GI: soft, normoactive bowel sounds, : No Renal angle tenderness; EXTREMITIES: No edema, no clubbing, MUSCULOSKELETAL: no muscle wasting NEURO: Awake; no lateralizing signs. SKIN: No Rash PSYCH; Flat affect Assessment & Plan Assessment/Plan (1) DAMARIS (acute kidney injury): (2) Complicated UTI (urinary tract infection): (3) Generalized weakness: (4) Major depressive disorder: (5) Intermittent self-catheterization of bladder: PLAN: Plan 64-year-old man from assisted living facility comes in with generalized weakness, falling and inability to independently get up, acute kidney injury creatinine 2.5 from normal baseline and catheter associated UTI 1. Acute kidney injury ? Patient creatinine on 02/03/2024 was 1.1. Creatinine on admission was 2.51 (Formal kidney ultrasound (djvei-qg-zube US showed hydronephrosis more on right side,) Roche catheter was placed in the ED patient started on hydration admitted to regular nursing floor for further management. Subsequent monitoring with daily BMPs ordered 2. Catheter associated UTI (due to self-catheterization as a result of neurogenic bladder Patient was started on Zosyn to cover for multidrug-resistant organisms blood and urine culture sent will follow-up on result 3. Neurogenic bladder ? Patient performs self-catheterization. Patient is on solifenacin 4. BPH with lower urinary obstructive symptoms - Patient treated with tamsulosin 5. Depression with anxiety ? Patient is on mirtazapine trazodone Wellbutrin and Abilify. The mirtazapine and trazodone held on admission plan is to resume once patient level of sensorium improves 6. GERD ? On PPI 7. DVT prophylaxis ? Subcu heparin Time spent in the patient's overall evaluation,decision-making process, review of diagnostic data, adjustment of management, discussion with other providers, nursing nursing and ancillary staff involved in patient's care documentation, 35 minutes Charges/Coding Visit Charges Inpatient E&M: 63712 Subs Hosp L2 Multi Select Codes Visit Charges Visit Charges: 30113 PROLNG IP/OBS E/M EA 15 MIN (Total additional time spent on patient 35; 92413, 06711)
[2025-01-23] MEDS: Piperacil/Tazobactam 3.375 GM in 0.9% Normal Saline (50mL MB+) 50 ML IV ×2 (10:43→22:38)
[2025-01-23] MEDS: buPROPion (XL) 150 MG TABLET.XL PO (10:51)
[2025-01-23] MEDS: Tolterodine Tartrate 4 MG CAP.SA PO (10:51)
[2025-01-23] MEDS: 0.9% Saline Lock 10 ML Syringe IV (20:44)
[2025-01-24 02:30] VITALS: BP 105/74; PULSE 104; RESP 20; TEMP 36.9; O2SAT 99
[2025-01-24] MEDS: Heparin Injection (Vial) 5,000 UNIT/ML VIAL 5000 UNIT SC ×3 (05:35→21:40)
[2025-01-24] MEDS: Piperacil/Tazobactam 3.375 GM in 0.9% Normal Saline (50mL MB+) 50 ML IV ×3 (05:36→21:40)
[2025-01-24 06:44] LABS: Hematocrit 28.2 % (40-54); Hemoglobin 9.5 g/dL (13.0-16.5); Immature Granulocytes Count 0.050 X10^3/uL (0.0-0.0); Mean Corp Hgb Conc 33.7 g/dL (32-36); Mean Corpuscular Volume 94.9 fL (80-94); Mean Platelet Vol. 11.3 fl (6.2-12.0); NRBC Flagged by Analyzer 0 % (0-5); Platelet Count 221 K/mm3 (150-450); RBC Distribution Width CV 12.7 % (11.6-14.6); RBC Distribution Width SD 43.7 fl (35.1-43.9); Red Blood Count 2.97 M/mm3 (4.6-6.2); White Blood Count 8.4 K/mm3 (4.4-11.0)
--- NOTE | 2025-01-24 07:00 | US_ITS ---
PROCEDURE: KIDNEY AND BLADDER 01/24/2025 REASON FOR EXAM: ACUTE KIDNEY INJURY, HYDRONEPHROSIS TECHNIQUE: Procedure Code: USKI Modality: US Procedure: KIDNEY AND BLADDER COMPARISON: None available. FINDINGS: Kidneys: Normal renal sizes, parenchymal thicknesses, and echotextures. [place]: None. Cysts or Masses: No cysts or large solid renal masses. Calculi: Nonobstructive left renal calculus measures 3 x 2 x 1 mm Bladder: Underdistended with Roche catheter in place. The bilateral distal ureters and ureteral jets are not visualized. RIGHT Kidney Size: 12.1 x 5.5 x 4.4 cm Cortical Thickness (if discernible): 13.7 (>6mm is normal) LEFT Kidney Size: 10.2 x 4.5 x 5.0 cm Cortical Thickness (if discernible): 12.8 (>6mm is normal) US/Kidney and Bladder IMPRESSION: Nonobstructive 3 mm left renal calculus. Otherwise unremarkable renal ultrasou nd. [facility]
[2025-01-24 07:20] LABS: Anion Gap 11 (5-15); BUN 17 mg/dL (4-19); BUN/Creat Ratio 8.3 RATIO (10-20); Calcium,Total 8.5 mg/dL (7.6-11.0); Carbon Dioxide 26.0 mmol/L (21.0-32.0); Chloride 102 mmol/L (98-108); Estimated Creatinine Clearance 32.82 ml/min (50-250); Glucose 95 mg/dL (70-99); Magnesium 1.8 mg/dL (1.5-2.2); Potassium 3.9 mmol/L (3.3-5.1)
--- NOTE | 2025-01-24 07:26 | PCM.PN.HOSP ---
Reason for Visit Chief Complaint: Fever and generalized weakness Subjective Subjective Patient seen. Kidney function improving creatinine down to 2.02. Patient urine cultures so far positive for gram-positive organisms possible Enterococcus species and gram-negative lactose manager of medical final identification and sensitivities pending Objective Data Objective Data Vital Signs: Vital Signs Temp Pulse Resp BP Pulse Ox O2 Del Method 98.4 F 104 H 20 H 105/74 99 Room Air 01/24/25 02:30 01/24/25 02:30 01/24/25 02:30 01/24/25 02:30 01/24/25 02:30 01/24/25 02:30 Oxygen Delivery Method Room Air Weight: 64.501 kg Body Mass Index (BMI) 20.4 Intake & Output: Intake and Output for Last 24 Hours 01/22/25 01/23/25 01/24/25 23:59 23:59 23:59 Intake Total 2900 / 2900 50 / 50 Output Total 3250 / 3975 1925 / 1925 Balance -350 / -1075 -1875 / -1875 Lab / Micro Data 01/24/25 06:07 01/24/25 06:07 Labs: Laboratory Results - last 24 hr 01/24/25 06:07: WBC 8.4, RBC 2.97 L, Hgb 9.5 L, Hct 28.2 L, MCV 94.9 H, MCH 32.0, MCHC 33.7, RDW Std Deviation 43.7, RDW Coeff of Lola 12.7, Plt Count 221, MPV 11.3, Immature Gran % (Auto) 0.600, Neut % (Auto) 79.5 H, Lymph % (Auto) 7.3 L, [place] % (Auto) 10.5 H, Eos % (Auto) 1.6, Baso % (Auto) 0.5, Absolute Neuts (auto) 6.7, Absolute Lymphs (auto) 0.61 L, Nucleated RBC % 0, Sodium 139, Potassium 3.9, Chloride 102, Carbon Dioxide 26.0, Anion Gap 11, BUN 17, Creatinine 2.02 H, Estim Creat Clear Calc 32.82 L, Est GFR (MDRD) Non-Af 36 L, BUN/Creatinine Ratio 8.3 L, Glucose 95, Calcium 8.5, Phosphorus 2.8, Magnesium 1.8 Rhythm Strip Rhythm Strip: Sinus Tach Rate: 116 Ectopy: None Physical Exam Narrative GENERAL: Significantly flat affect HEENT: Atraumatic; normocephalic EYES; Anicteric, Normal Conjunctiva NECK; supple, normal thyroid, RESPIRATORY: Diminished to auscultation CARDIOVASCULAR: Regular S1 S2, GI: soft, normoactive bowel sounds, : No Renal angle tenderness; EXTREMITIES: No edema, no clubbing, MUSCULOSKELETAL: no muscle wasting NEURO: Awake; no lateralizing signs. SKIN: No Rash PSYCH; Flat affect Assessment & Plan Assessment/Plan (1) DAMARIS (acute kidney injury): (2) Complicated UTI (urinary tract infection): (3) Generalized weakness: (4) Major depressive disorder: (5) Intermittent self-catheterization of bladder: PLAN: Plan 64-year-old man from assisted living facility comes in with generalized weakness, falling and inability to independently get up, acute kidney injury creatinine 2.5 from normal baseline and catheter associated UTI 1. Acute kidney injury ? Patient creatinine on 02/03/2024 was 1.1. Creatinine on admission was 2.51 (Formal kidney ultrasound ([id number] US showed hydronephrosis more on right side,) Roche catheter was placed in the ED patient started on hydration admitted to regular nursing floor for further management. Subsequent monitoring with daily BMPs ordered ? 01/24/2025; patient creatinine down to 2.02 2. Catheter associated UTI (due to self-catheterization as a result of neurogenic bladder Patient was started on Zosyn to cover for multidrug-resistant organisms blood and urine culture sent will follow-up on result ? 01/24/2025; patient remains on broad-spectrum antibiotic therapy, Patient urine cultures so far positive for gram-positive organisms possible Enterococcus species and gram-negative lactose manager of medical final identification and sensitivities pending 3. Neurogenic bladder ? Patient performs self-catheterization. Patient is on solifenacin 4. BPH with lower urinary obstructive symptoms - Patient treated with tamsulosin 5. Depression with anxiety ? Patient is on mirtazapine trazodone Wellbutrin and Abilify. The mirtazapine and trazodone held on admission plan is to resume once patient level of sensorium improves 6. GERD ? On PPI 7. DVT prophylaxis ? Subcu heparin Time spent in the patient's overall evaluation,decision-making process, review of diagnostic data, adjustment of management, discussion with other providers, nursing nursing and ancillary staff involved in patient's care documentation, 38 minutes Charges/Coding Visit Charges Inpatient E&M: 15635 Subs Hosp L2
[2025-01-24 08:30] VITALS: BP 116/73; PULSE 88; RESP 18; TEMP 37.5; O2SAT 95
[2025-01-24] MEDS: buPROPion (XL) 150 MG TABLET.XL PO (08:46)
[2025-01-24] MEDS: Tolterodine Tartrate 4 MG CAP.SA PO (08:46)
--- NOTE | 2025-01-24 14:02 | CASEMGMT ---
Noted that the pt resides at [facility]. DENISSE GARNER to the pt's room at this time. Pt states that he wishes to return to [facility] at the time of DC. Pt denies further needs e/f transportation. Pt states that he does not have any transportation and does not know how he will get back to [facility]. Pt informed about [facility], as well as [employer] and transport through the pt's insurance. ACETYLENE [employer] CM notified. DPA notified and plans to send updates to [facility]. Current 6-Click score is 20. LACE is 2. Pt is on RA. Pt denies further questions or concerns. CM/MELANIE to follow for transportation needs.
[2025-01-24 14:30] VITALS: BP 111/72; PULSE 97; RESP 18; TEMP 37; O2SAT 97
--- NOTE | 2025-01-24 15:07 | CASEMGMT ---
Discharge Planning Updates faxed to [facility] with note that pt may return over the weekend. Fax confirmation rec'd. Green sheet and transport form completed and placed in chart. Natalia Mendiola DC Planning Asst.
[2025-01-24 21:35] VITALS: BP 113/75; PULSE 88; RESP 16; TEMP 37.3; O2SAT 96
[2025-01-25 02:16] VITALS: BP 108/71; PULSE 96; RESP 14; TEMP 36.8; O2SAT 96
[2025-01-25] MEDS: Piperacil/Tazobactam 3.375 GM in 0.9% Normal Saline (50mL MB+) 50 ML IV (05:20)
[2025-01-25] MEDS: 0.9% Normal Saline (250mL Bag) 250 ML 15 ML IV (05:21)
[2025-01-25] MEDS: Heparin Injection (Vial) 5,000 UNIT/ML VIAL 5000 UNIT SC (05:26)
[2025-01-25 05:46] LABS: Hematocrit 27.8 % (40-54); Hemoglobin 9.5 g/dL (13.0-16.5); Immature Granulocytes Count 0.060 X10^3/uL (0.0-0.0); Mean Corp Hgb Conc 34.2 g/dL (32-36); Mean Corpuscular Volume 93.9 fL (80-94); Mean Platelet Vol. 10.6 fl (6.2-12.0); NRBC Flagged by Analyzer 0 % (0-5); Platelet Count 216 K/mm3 (150-450); RBC Distribution Width CV 12.8 % (11.6-14.6); RBC Distribution Width SD 43.7 fl (35.1-43.9); Red Blood Count 2.96 M/mm3 (4.6-6.2); White Blood Count 8.9 K/mm3 (4.4-11.0)
[2025-01-25 06:18] LABS: Anion Gap 12 (5-15); BUN 22 mg/dL (4-19); BUN/Creat Ratio 11.1 RATIO (10-20); Calcium,Total 8.6 mg/dL (7.6-11.0); Carbon Dioxide 24.7 mmol/L (21.0-32.0); Chloride 102 mmol/L (98-108); Estimated Creatinine Clearance 32.98 ml/min (50-250); Glucose 101 mg/dL (70-99); Potassium 3.8 mmol/L (3.3-5.1)
[2025-01-25 08:16] VITALS: BP 122/80; PULSE 115; RESP 18; TEMP 36.9; O2SAT 98
--- NOTE | 2025-01-25 08:24 | PN.HOSP_ITS ---
Reason for Visit Chief Complaint: Fever and generalized weakness Subjective Subjective no change in kidney function overnight. Patient will however be discharged home with repeat labs as outpatient within 5 to 7 days Objective Data Objective Data Vital Signs: Vital Signs Temp Pulse Resp BP Pulse Ox O2 Del Method 98.3 F 96 14 108/71 96 Room Air 01/25/25 02:16 01/25/25 02:16 01/25/25 02:16 01/25/25 02:16 01/25/25 02:16 01/25/25 03:46 Oxygen Delivery Method Room Air Weight: 64.501 kg Body Mass Index (BMI) 20.4 Intake & Output: Intake and Output for Last 24 Hours 01/23/25 01/24/25 01/25/25 23:59 23:59 23:59 Intake Total 2900 / 2900 870 / 870 Output Total 3250 / 3975 3425 / 3425 Balance -350 / -1075 -2555 / -2555 Lab / Micro Data 01/25/25 05:26 01/25/25 05:26 Labs: Laboratory Results - last 24 hr 01/25/25 05:26: WBC 8.9, RBC 2.96 L, Hgb 9.5 L, Hct 27.8 L, MCV 93.9, MCH 32.1 H , MCHC 34.2, RDW Std Deviation 43.7, RDW Coeff of Lola 12.8, Plt Count 216, MPV 10.6, Immature Gran % (Auto) 0.700, Neut % (Auto) 78.8 H, Lymph % (Auto) 8.7 L, Power % (Auto) 9.4, Eos % (Auto) 2.0, Baso % (Auto) 0.4, Absolute Neuts (auto) 7.0, Absolute Lymphs (auto) 0.77 L, Nucleated RBC % 0, Sodium 138, Potassium 3.8, Chloride 102, Carbon Dioxide 24.7, Anion Gap 12, BUN 22 H, Creatinine 2.01 H, Estim Creat Clear Calc 32.98 L, Est GFR (MDRD) Non-Af 36 L, BUN/Creatinine Ratio 11.1, Glucose 101 H, Calcium 8.6 Micro: Microbiology 01/23/25 01:15 Blood Culture (Wb) - Right Forearm Blood Culture - Preliminary No growth in 48 hours. 01/23/25 00:50 Blood Culture (Wb) - Right Forearm Blood Culture - Preliminary No growth in 48 hours. 01/23/25 01:39 Urine, Catheterized Urine Culture - Final Escherichia coli Enterococcus faecalis Rhythm Strip Rhythm Strip: Sinus Tach Rate: 116 Ectopy: None Physical Exam Narrative GENERAL: Significantly flat affect HEENT: Atraumatic; normocephalic EYES; Anicteric, Normal Conjunctiva NECK; supple, normal thyroid, RESPIRATORY: Diminished to auscultation CARDIOVASCULAR: Regular S1 S2, GI: soft, normoactive bowel sounds, : No Renal angle tenderness; EXTREMITIES: No edema, no clubbing, MUSCULOSKELETAL: no muscle wasting NEURO: Awake; no lateralizing signs. SKIN: No Rash PSYCH; Flat affect Assessment & Plan Assessment/Plan (1) DAMARIS (acute kidney injury): (2) Complicated UTI (urinary tract infection): (3) Generalized weakness: (4) Major depressive disorder: (5) Intermittent self-catheterization of bladder: PLAN: Plan 64-year-old man from assisted living facility comes in with generalized weakness, falling and inability to independently get up, acute kidney injury creatinine 2.5 from normal baseline and catheter associated UTI 1. Acute kidney injury ? Patient creatinine on 02/03/2024 was 1.1. Creatinine on admission was 2.51 (Formal kidney ultrasound ([id number]-[id number] US showed hydronephrosis more on right side,) Roche catheter was placed in the ED patient started on hydration admitted to regular nursing floor for further management. Subsequent monitoring with daily BMPs ordered ? 01/24/2025; patient creatinine down to 2.02 ? 01/25/2025; no change in kidney function overnight. Patient will however be discharged home with repeat labs as outpatient within 5 to 7 days 2. Catheter associated UTI (due to self-catheterization as a result of neurogenic bladder Patient was started on Zosyn to cover for multidrug-resistant organisms blood and urine culture sent will follow-up on result ? 01/24/2025; patient remains on broad-spectrum antibiotic therapy, Patient urine cultures so far positive for gram-positive organisms possible Enterococcus species and gram-negative lactose java jsf developer final identification and sensitivities pending 3. Neurogenic bladder ? Patient performs self-catheterization. Patient is on solifenacin 4. BPH with lower urinary obstructive symptoms - Patient treated with tamsulosin 5. Depression with anxiety ? Patient is on mirtazapine trazodone Wellbutrin and Abilify. The mirtazapine and trazodone held on admission plan is to resume once patient level of sensorium improves 6. GERD ? On PPI 7. DVT prophylaxis ? Subcu heparin Time spent in the patient's overall evaluation,decision-making process, review of diagnostic data, adjustment of management, discussion with other providers, nursing nursing and ancillary staff involved in patient's care documentation, 38 minutes Charges/Coding Visit Charges Inpatient E&M: 43447 Subs Hosp L2
--- NOTE | 2025-01-25 08:36 | PCM.DC.SUM ---
Providers Date of Admission: 01/23/25 Date of Discharge: 01/25/25 Primary Care Physician: IRIS Meier Reason For Visit: ACUTE KIDNEY INJURY, UTI Diagnosis Discharge Diagnosis (1) DAMARIS (acute kidney injury): Status: Acute Code(s): N17.9 - Acute kidney failure, unspecified (2) Complicated UTI (urinary tract infection): Status: Acute Code(s): N39.0 - Urinary tract infection, site not specified (3) Generalized weakness: Status: Acute Code(s): R53.1 - Weakness (4) Major depressive disorder: Status: Acute Code(s): F32.9 - Major depressive disorder, single episode, unspecified (5) Intermittent self-catheterization of bladder: Status: Acute Code(s): Z78.9 - Other specified health status Plan 64-year-old man from assisted living facility comes in with generalized weakness, falling and inability to independently get up, acute kidney injury creatinine 2.5 from normal baseline and catheter associated UTI 1. Acute kidney injury ? Patient creatinine on 02/03/2024 was 1.1. Creatinine on admission was 2.51 (Formal kidney ultrasound (fziug-kg-[id number] US showed hydronephrosis more on right side,) Roche catheter was placed in the ED patient started on hydration admitted to regular nursing floor for further management. Subsequent monitoring with daily BMPs ordered ? 01/24/2025; patient creatinine down to 2.02 ? 01/25/2025; no change in kidney function overnight. Patient will however be discharged home with repeat labs as outpatient within 5 to 7 days 2. Catheter associated UTI (due to self-catheterization as a result of neurogenic bladder Patient was started on Zosyn to cover for multidrug-resistant organisms blood and urine culture sent will follow-up on result ? 01/24/2025; patient remains on broad-spectrum antibiotic therapy, Patient urine cultures so far positive for gram-positive organisms possible Enterococcus species and gram-negative lactose defence intelligence analyst final identification and sensitivities pending 3. Neurogenic bladder ? Patient performs self-catheterization. Patient is on solifenacin 4. BPH with lower urinary obstructive symptoms - Patient treated with tamsulosin 5. Depression with anxiety ? Patient is on mirtazapine trazodone Wellbutrin and Abilify. The mirtazapine and trazodone held on admission plan is to resume once patient level of sensorium improves 6. GERD ? On PPI 7. DVT prophylaxis ? Subcu heparin Time spent in the patient's overall evaluation,decision-making process, review of diagnostic data, adjustment of management, discussion with other providers, nursing nursing and ancillary staff involved in patient's care documentation, 38 minutes Medications at Discharge Home Medications aripiprazole 5 mg tablet 7.5 mg PO DAILY mental health 02/01/24 bupropion HCl 150 mg 24 hr tablet, extended release 150 mg PO DAILY mental health 02/01/24 pantoprazole 40 mg tablet,delayed release 40 mg PO DAILY reflux 02/01/24 mirtazapine 7.5 mg tablet 7.5 mg PO QHS depression 10/14/24 ondansetron 4 mg disintegrating tablet 4 mg PO Q4H PRN nausea and vomiting 10/14/24 solifenacin 10 mg tablet 10 mg PO QDAY overactive bladder 10/14/24 tamsulosin 0.4 mg capsule 0.4 mg PO QHS bph 10/14/24 acetaminophen 325 mg tablet (Pain Relief (acetaminophen)) 650 mg PO Q6H PRN pain 11/08/24 aluminum-mag hydroxide-simethicone 200 mg-200 mg-20 mg/5 mL oral susp (Advanced Antacid-Antigas) 30 ml PO TID PRN indigestion 01/22/25 bisacodyl 10 mg rectal suppository 10 mg NE PRN constipation 01/22/25 guaifenesin 400 mg tablet (Chest Congestion Relief) 400 mg PO TID PRN congestion AND COUGH 01/22/25 lidocaine 4 % topical patch 1 patch topical Q12H 01/22/25 magnesium hydroxide 400 mg/5 mL oral suspension (Gentle Laxative (magnesium hydroxide)) 30 ml PO DAILY PRN constipation 01/22/25 neomycin-bacitracn Zn-polymyx 3.5 mg-400 unit-5,000 unit/gram top oint (Antibiotic(ertgy-ndjbh-vihva)) 1 applic topical PRN unknown 01/22/25 polyethylene glycol 3350 17 gram/dose oral powder (ClearLax) 17 g PO DAILY PRN constipation 01/22/25 ciprofloxacin HCl 250 mg tablet 250 mg PO BID #20 tabs 01/25/25 Physical Exam Narrative GENERAL: Significantly flat affect HEENT: Atraumatic; normocephalic EYES; Anicteric, Normal Conjunctiva NECK; supple, normal thyroid, RESPIRATORY: Diminished to auscultation CARDIOVASCULAR: Regular S1 S2, GI: soft, normoactive bowel sounds, : No Renal angle tenderness; EXTREMITIES: No edema, no clubbing, MUSCULOSKELETAL: no muscle wasting NEURO: Awake; no lateralizing signs. SKIN: No Rash PSYCH; Flat affect Weight / BMI Weight Weight: 64.501 kg Body Mass Index (BMI) 20.4 ABG / Lab / Microbiology Data 01/25/25 05:26 01/25/25 05:26 Laboratory: Laboratory Results - last 24 hr 01/25/25 05:26: WBC 8.9, RBC 2.96 L, Hgb 9.5 L, Hct 27.8 L, MCV 93.9, MCH 32.1 H, MCHC 34.2, RDW Std Deviation 43.7, RDW Coeff of Lola 12.8, Plt Count 216, MPV 10.6, Immature Gran % (Auto) 0.700, Neut % (Auto) 78.8 H, Lymph % (Auto) 8.7 L, [place] % (Auto) 9.4, Eos % (Auto) 2.0, Baso % (Auto) 0.4, Absolute Neuts (auto) 7.0, Absolute Lymphs (auto) 0.77 L, Nucleated RBC % 0, Sodium 138, Potassium 3.8, Chloride 102, Carbon Dioxide 24.7, Anion Gap 12, BUN 22 H, Creatinine 2.01 H, Estim Creat Clear Calc 32.98 L, Est GFR (MDRD) Non-Af 36 L, BUN/Creatinine Ratio 11.1, Glucose 101 H, Calcium 8.6 Microbiology: Microbiology 01/23/25 01:15 Blood Culture (Wb) - Right Forearm Blood Culture - Preliminary No growth in 48 hours. 01/23/25 00:50 Blood Culture (Wb) - Right Forearm Blood Culture - Preliminary No growth in 48 hours. 01/23/25 01:39 Urine, Catheterized Urine Culture - Final Escherichia coli Enterococcus faecalis D/C Instructions Discharge Activity: Return to Normal Activity Call your doctor if you observe: Fever of 101 or Higher, Shortness of breath, Fainting spells and Chest pain DC O2, CPAP, BIPAP Needs Home O2 Discharge instructions: No Meaningful Use Info Meaningful Use Meaningful Use Diagnoses (Choose all that apply): None applicable Discharge Plan Admission Admit Date/Time: 01/23/25 03:09 Attending Provider: Chucho Meyer Primary Care Provider: Katelyn Kamara HUMAN SERVICES CARE SPECIALIST Consulting Providers: Indra Finn Discharge Orders/Prescriptions Prescriptions: New ciprofloxacin HCl 250 mg tablet 250 mg PO BID Qty: 20 0RF Continued mirtazapine 7.5 mg tablet 7.5 mg PO QHS ondansetron 4 mg tablet,disintegrating 4 mg PO Q4H PRN (Reason: nausea and vomiting) solifenacin 10 mg tablet 10 mg PO QDAY tamsulosin 0.4 mg capsule 0.4 mg PO QHS pantoprazole 40 mg tablet,delayed release (DR/EC) 40 mg PO DAILY aripiprazole 5 mg tablet 7.5 mg PO DAILY bupropion HCl 150 mg tablet extended release 24 hr 150 mg PO DAILY alum-mag hydroxide-simeth [Advanced Antacid-Antigas] 200-200-20 mg/5 mL suspension 30 ml PO TID PRN (Reason: indigestion) bisacodyl 10 mg suppository 10 mg NE PRN Patient Comments: IF NO RELIEF FROM MOM OR MIRALAX guaifenesin [Chest Congestion Relief] 400 mg tablet 400 mg PO TID PRN (Reason: congestion AND COUGH) lidocaine 4 % adhesive patch,medicated 1 patch topical Q12H Patient Comments: OFF 12H magnesium hydroxide [Gentle Laxative (mag hydrox)] 400 mg/5 mL suspension 30 ml PO DAILY PRN (Reason: constipation) Patient Comments: AFTER 3 DAYS WITH NO BM polyethylene glycol 3350 [ClearLax] 17 gram/dose powder 17 g PO DAILY PRN (Reason: constipation) Antibiotic (cwuwb-raflr-rqjiw) 3.5mg-400 unit- 5,000 unit/gram ointment 1 applic topical PRN acetaminophen [Pain Relief (acetaminophen)] 325 mg tablet 650 mg PO Q6H PRN (Reason: pain) Discontinued meloxicam 7.5 mg tablet 7.5 mg PO DAILY PRN (Reason: pain) trazodone 100 mg tablet 100 mg PO QHS Other Ambulatory Orders: Basic Metabolic Profile (BMP) (Routine) Timeframe: 20250129 Facility: [facility] - Location: Laboratory Ordered By: Dr. Chucho Meyer Referrals / Follow Up: Katelyn Kamara HUMAN SERVICES CARE SPECIALIST, HUMAN SERVICES CARE SPECIALIST-C [Primary Care Provider, Medical] Disposition Disposition (needs filled in before D/C Order can be placed): Assisted Living Charges/Coding Visit Charges Inpatient E&M: 21131 Disch Hosp >30min
[2025-01-25] MEDS: buPROPion (XL) 150 MG TABLET.XL PO (08:58)
[2025-01-25] MEDS: Tolterodine Tartrate 4 MG CAP.SA PO (08:58)
[2025-01-25 09:18] VITALS: BP 122/80; PULSE 115; RESP 18; TEMP 36.9; O2SAT 99
--- NOTE | 2025-01-25 10:28 | NURSING ---
Report called to nurse Colvin for pt to be d/c back to [facility].
== END 2025-01-25 10:57 | disposition home or self-care (01) | DRG 683 ==
LOC: ED 01:19 → PCU 03:14
PROVIDERS: Admitting Provider Internal Medicine; Emergency Provider Emergency Medicine; PCP Nurse Practitioner Adult Health; Visit Provider Internal Medicine
DX: N17.9 Acute kidney failure, unspecified (principal); N30.00 Acute cystitis without hematuria; T83.511A Infection and inflammatory reaction due to indwelling urethral catheter, initial encounter; N13.8 Other obstructive and reflux uropathy; B95.2 Enterococcus as the cause of diseases classified elsewhere; F32.9 Major depressive disorder, single episode, unspecified; K21.9 Gastro-esophageal reflux disease without esophagitis; F41.8 Other specified anxiety disorders; E86.0 Dehydration; W19.XXXA Unspecified fall, initial encounter; N13.6 Pyonephrosis; R53.1 Weakness; N31.9 Neuromuscular dysfunction of bladder, unspecified; G47.00 Insomnia, unspecified; N40.1 Benign prostatic hyperplasia with lower urinary tract symptoms; Z90.49 Acquired absence of other specified parts of digestive tract; Y82.9 Unspecified medical devices associated with adverse incidents
CPT/HCPCS: 36415; 51702; 76770; 80048; 80053; 81001; 83605; 83735; 84100; 85025; 85610; 85730; 87040; 87077; 87086; 87088; 87186; 93005; 96360; 96361; 99285; A4216